=== PATIENT | male | born 1950 | race Caucasian/White ===

== ENCOUNTER 2022-02-03 12:15 | Outpatient (RCR) | payer MEDICARE, BC, SELFPAY | END 2022-09-02 23:59 | disposition home or self-care (01) | PROVIDERS: PCP Internal Medicine; Visit Provider Internal Medicine | DX: I89.0 Lymphedema, not elsewhere classified (principal); Z51.89 Encounter for other specified aftercare | CPT/HCPCS: 97140; 97165; 97535 ==

== ENCOUNTER 2022-09-17 07:15 | Outpatient (CLI) | payer MEDICARE, BC, SELFPAY | END 2022-09-17 07:16 | disposition home or self-care (01) | LOC: AMB 09-21 10:50 | PROVIDERS: Visit Provider Family Medicine | DX: R06.09 Other forms of dyspnea (principal); R61 Generalized hyperhidrosis | CPT/HCPCS: A0425; A0429 ==

== ENCOUNTER 2022-09-17 07:48 | Emergency (ER) | payer MEDICARE, BC, SELFPAY ==
[2022-09-17] VITALS (27 sets, daily range): BP systolic 93–130; BP diastolic 46–92; PULSE 63–86; RESP 18; TEMP 36.4; O2SAT 92–100; BMI 40.7
--- NOTE | 2022-09-17 08:08 | ED_ITS ---
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 He got up around 530 this morning, had sense of fecal urgency with diarrhea, did not quite make it to the toilet in time. He states this will occasionally happen to him. Was not suspecting that he was coming down with any illness. When he was cleaning up in the bathroom, started to feel short of breath. The shortness of breath continued to progress. He does have underlying mild persistent asthma since having COVID about 2 years ago. He has had some cough since then, is on Trelegy and then has rescue inhalers. He admits he has been using rescue inhalers more frequently. No fevers or chills, no nausea or vomiting, no abdominal pain or chest pain with this. Became concerned as he started having profuse sweating. He has had 2 episodes of cardiac events where he ended up with stent placement at [facility] which is no longer open. Both of those times he never had any chest pain, it was all sweating. He has had a history of pulmonary emboli, is on Xarelto and has not missed any doses of medications, did take them already today. He has a history of a TBI and has a psychiatrist managing medications for this. With the severe sweating, started to notice his hands and arms feeling numb. MD elicited complaint: shortness of breath Related Data Home oxygen amount: none Home Medications Medication Instructions Recorded Confirmed ezetimibe 10 mg tablet 10 mg PO 05/31/22 06/15/22 furosemide 20 mg tablet 20 mg PO 05/31/22 06/15/22 lisinopril 5 mg tablet 5 mg PO 05/31/22 06/15/22 metoprolol succinate 50 mg mg PO 05/31/22 06/15/22 tablet,extended release 24 hr nitroglycerin 0.4 mg sublingual 0.4 mg sublingual ONCE 05/31/22 09/17/22 tablet rosuvastatin 40 mg tablet 40 mg PO 05/31/22 06/15/22 tamsulosin 0.4 mg capsule mg PO 05/31/22 06/15/22 armodafinil 250 mg tablet 250 mg PO DAILY 09/17/22 09/17/22 bupropion HCl 100 mg tablet,12 hr 100 mg PO QAM 09/17/22 09/17/22 sustained-release divalproex 500 mg tablet,extended 1,000 mg PO QPM 09/17/22 09/17/22 release 24 hr rivaroxaban 20 mg tablet (Xarelto) 20 mg PO DAILY 09/17/22 09/17/22 venlafaxine 150 mg 150 mg PO DAILY 09/17/22 09/17/22 capsule,extended release 24 hr venlafaxine 75 mg capsule,extended 75 mg PO DAILY 09/17/22 09/17/22 release 24 hr Allergies Allergy/AdvReac Type Severity Reaction Status Date / Time oxycodone Allergy Rash Verified 09/17/22 08:05 Review of Systems Status of ROS: Reports: 6 or more systems reviewed and unremarkable except as noted in History and below [facility] Medical History (Updated 05/31/22 @ 08:58 by Susan Tamez ~ [facility], [employer]) Fracture of phalanx of toe of right foot ?S92.911A - Unspecified fracture of right toe(s), initial encounter for closed fracture (ICD-10) Concussion ?S06.0XAA - Concussion with loss of consciousness status unknown, initial encounter (ICD-10) Cardiac arrhythmia ?I49.9 - Cardiac arrhythmia, unspecified (ICD-10) Type 2 diabetes mellitus ?E11.9 - Type 2 diabetes mellitus without complications (ICD-10) CAD (coronary artery disease) ?I25.10 - Atherosclerotic heart disease of [place] coronary artery without angina pectoris (ICD-10) COPD (chronic obstructive pulmonary disease) ?J44.9 - Chronic obstructive pulmonary disease, unspecified (ICD-10) Asthma ?J45.909 - Unspecified asthma, uncomplicated (ICD-10) Surgical History (Updated 05/31/22 @ 08:58 by Susan Tamez ~ [facility], [employer]) History of coronary artery stent placement ?Z95.5 - Presence of coronary angioplasty implant and graft (ICD-10) Social History Smoking Status: Never smoker Do you use any of these nicotine containing products: None Second hand tobacco smoke exposure: No How often do you have a drink containing alcohol: never How often do you have six or more drinks on one occasion: Never AUDIT-C Alcohol total score: 0 Non-prescribed substance use: denies use service: No Exam Const: Vital Signs, click to edit/add: Vital Signs - 24 hr 09/17/22 07:57 09/17/22 08:20 Temperature 97.5 F L Pulse Rate [Left P ulse Oximeter] 86 Respiratory Rate 18 Blood Pressure [Le ft Upper Arm] 129/83 Pulse Oximetry 96 100 Oxygen Delivery Me thod Room Air Documenting provider has reviewed patient's vital signs: yes Common normals: no apparent distress, oriented x3, no limitations, healthy appearing and alert General appearance: cooperative, comfortable, well kempt and well developed Other: Patient is no longer sweating but is T-shirt is damp. HENMT: Common normals: normocephalic, head/scalp atraumatic, hearing grossly normal bilaterally and external ears normal Head and scalp: normocephalic and atraumatic Face and sinus: normal facial exam External ear: external ears normal Eye: Common normals: PERRL, EOMs intact bilaterally, conjunctivae normal and no scleral icterus Conjunctiva: conjunctiva(e) normal Pupil: PERRL Neck & C-Spine: Common normals: full ROM, no lymphadenopathy, supple, no meningeal signs, no JVD and thyroid normal Thyroid: thyroid normal Chest: Common normals: inspection of chest normal and palpation of chest normal Resp: Common normals: normal respiratory effort, no retractions, no use of accessory muscles and clear to auscultation bilaterally Effort & inspection: able to speak in complete sentences Auscultation: clear to auscultation bilaterally Cardio: Common normals: no JVD, regular rate, regular rhythm, S1 normal heart sound, S2 normal heart sound, no gallops, no clicks and no murmurs Rate: regular rate Rhythm: regular rhythm Heart sounds: S1 normal and S2 normal GI: Common normals: Normal to inspection, nondistended, normoactive bowel sounds present, soft to palpation, non-tender, no hepatosplenomegaly and no masses Palpation: soft and no hepatosplenomegaly Extremity: Common normals: no calf tenderness and no pedal edema Neuro: Common normals: oriented x3 Sensorium/orientation: alert Meningeal signs: no meningeal signs Psych: Appearance: well kempt Course Course Hospital Course: Patient is currently hemodynamically stable, oxygenating well on room air. Will obtain portable chest x-ray, monitor him on cardiac monitoring and pulse oximetry. Will get a full complement of labs and obtain a baseline point of care troponin. Symptoms potentially started around 530 but were progressive. After we have the initial point of care troponin, will discuss with patient and appropriate time frame for monitoring to get a 2nd troponin. Cardiac, respiratory issues including but not limited to infection will be considered. Does not seem like this is congestive heart failure but will have labs and chest x-ray done. He has not missed any doses of Xarelto making this extremely unlikely to be recurrent thromboembolic disease. Reevaluation(s) Time of Reevaluation #1: 09:48 Reevaluation #1: Reviewed with patient that the initial labs minus the pending proBNP are all reassuring or normal. The troponin is normal. He feels the worst of his symptoms probably were about the timing of getting in the ambulance. Thus, we will just do a 3 hour troponin as we normally would follow here. He is just tired, wants to sleep. He would like something to eat, given the stability of his labs and improvement of his symptoms, will allow him to eat at this time. We have an initial normal troponin. Time of Reevaluation #2: 10:42 Reevaluation #2: Patient reported to nursing that he was having some increased shortness of breath and a sense of chest pressure. EKG was repeated and shows normal sinus rhythm, PVC was occasionally seen, 72 beats per minute. Will obtain point of care troponin now and will continue to do the 3 hour troponin at about 11:30 a.m. Vital Signs Vital signs: Initial Vital Signs Temperature 97.5 F L 09/17/22 07:57 Temperature Source Temporal Artery Scan 09/17/22 07:57 Pulse Rate 86 09/17/22 07:57 Pulse Rhythm Regular 09/17/22 07:57 Pulse Strength 3+ Normal 09/17/22 07:57 Respiratory Rate 18 09/17/22 07:57 Blood Pressure 129/83 09/17/22 07:57 Blood Pressure Mean 98 09/17/22 07:57 Blood Pressure Position Sitting 09/17/22 07:57 Pulse Oximetry 96 09/17/22 07:57 Oxygen Delivery Method Room Air 09/17/22 07:57 Vital Signs Temperature 97.5 F L 09/17/22 07:57 Pulse Rate 86 09/17/22 07:57 Respiratory Rate 18 09/17/22 07:57 Blood Pressure 129/83 09/17/22 07:57 Pulse Oximetry 96 09/17/22 07:57 Oxygen Delivery Method Room Air 09/17/22 07:57 Temperature 97.5 F L 09/17/22 07:57 Pulse Rate 86 09/17/22 07:57 Respiratory Rate 18 09/17/22 07:57 Blood Pressure 129/83 09/17/22 07:57 Pulse Oximetry 100 09/17/22 08:20 Oxygen Delivery Method Room Air 09/17/22 07:57 MDM - SOB/Dyspnea Lab Data Attestation: I reviewed the patient's lab results. Labs: Lab Results 09/17/22 09/17/22 Range/Units 08:21 08:38 WBC 4.71 (4.50-11.00) K/uL RBC 4.70 (4.30-5.90) m/uL Hgb 14.5 (13.5-17.5) gm/dL Hct 43.6 (37.0-53.0) % MCV 93 (80-100) fL MCH 31 (26-34) pg MCHC 33 (32-36) gm/dL RDW Coeff of Cosmo 13.4 (11.5-15.5) % Plt Count 158 (140-440) K/uL Neut % (Auto) 59.5 (42.0-72.0) % Lymph % (Auto) 31.4 (20-44) % [place] % (Auto) 7.9 (0.0-11.0) % Eos % (Auto) 0.6 (0.0-7.0) % Baso % (Auto) 0.2 (0.0-3.0) % Neut # (Auto) 2.80 (1.7-7.0) K/uL Lymph # (Auto) 1.48 (0.90-2.90) K/uL [place] # (Auto) 0.40 (0.00-0.90) K/UL Eos # (Auto) 0.03 (0.00-0.50) K/uL Baso # (Auto) 0.01 (0.00-0.30) K/uL Abs Immat Gran (auto) 0.02 (0.00-0.30) K/uL Imm/Tot Granulo (auto) 0.4 % VBG pH 7.442 H (7.32-7.43) VBG pCO2 41 (40-50) mmHG VBG pO2 48.6 H (25-47) mmHG VBG HCO3 28 (21-28) mmol/L Sodium 136 (135-149) mmol/L Potassium 4.9 (3.6-5.1) mmol/L Chloride 104 (96-114) mmol/L Carbon Dioxide 25 (20-32) mmol/L BUN 21 (7-30) mg/dL Creatinine 1.2 (0.5-1.5) mg/dL Estimated Creat Clear 63.77 Estimated GFR 65 ml/min Glucose 100 (60-115) mg/dL Lactate 1.9 (0.5-1.9) mmol/L Calcium 8.4 (8.4-10.6) mg/dL Total Bilirubin 1.1 (0.1-1.5) mg/dL AST 46 H (12-35) U/L ALT 49 (4-50) U/L Alkaline Phosphatase 29 L (40-150) U/L C-Reactive Protein < 0.5 L (0.5-1.0) mg/dL NT-Pro-B Natriuret Pep 104 pg/mL Total Protein 6.8 (6.0-8.3) g/dL Albumin 3.8 (3.3-5.0) g/dL POC Troponin I 0.00 L (0.01-0.04) ng/ml Imaging Data Chest x-ray: Attestation: I have reviewed the pertinent imaging results. My impression: I see no acute pathology on my preliminary review. Radiologist's impression: Patient: ROGER MATHUR Facility:?[facility] Patient ID:?[id number] Site Patient ID:?[id number]. Site :?[id number] Study:?XRay Chest PORTABLE 1 VIEW-09/17/2022 8:39:45 AM Ordering Physician:?Lalo Montano Final Report: INDICATION: Dyspnea COMPARISON: August 03, 2020 TECHNIQUE: Single-view examination FINDINGS: TUBES AND LINES: None. HEART AND MEDIASTINUM: The heart size is normal. The mediastinal contour appears normal for patient age. LUNGS AND PLEURAL SPACES: The lungs appear normal.The pleural spaces are unremarkable. OSSEOUS STRUCTURES: Age-appropriate appearance. No acute focal finding. IMPRESSION: No evidence of active pulmonary disease. Dictated by Abraham Modi MD @ 09/17/2022 9:06:16 AM (Electronic Signature) ECG Data Attestation: I personally reviewed and interpreted this ECG as follows: (Sinus rhythm with a PVC seen. No acute ischemic change. QT corrected 408 milliseconds.) ECG interpretation date: 09/17/22 ECG interpretation time: 08:44 Discharge Plan Discharge Prescriptions: No Action rosuvastatin 40 mg tablet 40 mg PO metoprolol succinate 50 mg tablet extended release 24 hr PO Patient Comments: TAKE 1 TABLET BY MOUTH DAILY lisinopril 5 mg tablet 5 mg PO furosemide 20 mg tablet 20 mg PO tamsulosin 0.4 mg capsule PO nitroglycerin 0.4 mg tablet, sublingual 0.4 mg sublingual ONCE ezetimibe 10 mg tablet 10 mg PO venlafaxine 75 mg capsule,extended release 24hr 75 mg PO DAILY venlafaxine 150 mg capsule,extended release 24hr 150 mg PO DAILY bupropion HCl 100 mg tablet sustained-release 12 hr 100 mg PO QAM divalproex 500 mg tablet extended release 24 hr 1,000 mg PO QPM Xarelto 20 mg tablet 20 mg PO DAILY armodafinil 250 mg tablet 250 mg PO DAILY Follow Up/Referrals: Atif Lopez DO [Referring] -
--- NOTE | 2022-09-17 08:20 | CRLHL7_ITS ---
For Patients: As a result of the Century Cures Act, medical imaging exams and procedure reports are released immediately into your electronic medical record. You may view this report before your referring provider. If you have questions, please contact your health care provider. INDICATION: Dyspnea COMPARISON: August 03, 2020 TECHNIQUE: Single-view examination FINDINGS: TUBES AND LINES: None. HEART AND MEDIASTINUM: The heart size is normal. The mediastinal contour appears normal for patient age. LUNGS AND PLEURAL SPACES: The lungs appear normal.The pleural spaces are unremarkable. OSSEOUS STRUCTURES: Age-appropriate appearance. No acute focal finding. IMPRESSION: No evidence of active pulmonary disease. Dictated by Abraham Modi MD @ 09/17/2022 9:06:16 AM (Electronically Signed)
[2022-09-17 08:45] LABS: HCO3 VBG 28 mmol/L (21-28); Lactate* 1.9 mmol/L (0.5-1.9); PCO2 VBG 41 mmHG (40-50); PO2 VBG 48.6 mmHG (25-47); pH VBG 7.442 (7.32-7.43)
[2022-09-17 08:46] LABS: Basophils Absolute Auto 0.01 K/uL (0.00-0.30); Basophils Percent Auto 0.2 % (0.0-3.0); Eosinophils Absolute Auto 0.03 K/uL (0.00-0.50); Eosinophils Percent Auto 0.6 % (0.0-7.0); Hematocrit 43.6 % (37.0-53.0); Hemoglobin* 14.5 gm/dL (13.5-17.5); Immature Granulocytes Abs Auto 0.02 K/uL (0.00-0.30); Immature Granulocytes Pct Auto 0.4 %; Lymphocytes Absolute Auto 1.48 K/uL (0.90-2.90); Lymphocytes Percent Auto 31.4 % (20-44); Mean Corpuscular HGB Conc 33 gm/dL (32-36); Mean Corpuscular Hemoglobin 31 pg (26-34); Mean Corpuscular Volume 93 fL (80-100); Monocytes Percent Auto 7.9 % (0.0-11.0); Neutrophils Percent Auto 59.5 % (42.0-72.0); Platelet Count* 158 K/uL (140-440); RDW Coefficient of Variation % 13.4 % (11.5-15.5); White Blood Count* 4.71 K/uL (4.50-11.00)
[2022-09-17 08:48] LABS: Slide Review Reflex No
[2022-09-17 09:05] LABS: Albumin* 3.8 g/dL (3.3-5.0); Chloride* 104 mmol/L (96-114); Sodium* 136 mmol/L (135-149)
[2022-09-17 09:06] LABS: Potassium* 4.9 mmol/L (3.6-5.1)
[2022-09-17 09:08] LABS: Alkaline Phosphatase* 29 U/L (40-150); Aspartate Amino Transferase* 46 U/L (12-35); Bilirubin Total* 1.1 mg/dL (0.1-1.5); Blood Urea Nitrogen* 21 mg/dL (7-30); Carbon Dioxide* 25 mmol/L (20-32); Creatinine* 1.2 mg/dL (0.5-1.5); Est. Creatinine Clearance* 63.77; Estimated Glomerular Filt Rate 65 ml/min; Total Protein* 6.8 g/dL (6.0-8.3)
[2022-09-17 09:09] LABS: Alanine Aminotransferase* 49 U/L (4-50); Calcium* 8.4 mg/dL (8.4-10.6); Glucose* 100 mg/dL (60-115)
[2022-09-17 09:14] LABS: C Reactive Protein* < 0.5 mg/dL (0.5-1.0)
[2022-09-17 09:22] LABS: NT Pro B Type NatriureticPept* 104 pg/mL
--- NOTE | 2022-09-17 10:35 | ED.NURSE ---
Called into pt room by . Pt reporting chest pressure and sob. EKG completed and given to MD. Pt vitally stable but requesting 2L NC for comfort.
--- NOTE | 2022-09-17 13:04 | ED.SOB ---
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 Got up around 5:30 a.m. this morning, had a sense of fecal urgency with subsequent diarrhea, did not quite make it to the toilet in time. He states this will occasionally happen to him, will note some occasional diarrhea. He was not suspecting that he was coming down with any illness this morning. When he was cleaning up in the bathroom, started to feel short of breath. The shortness of breath continue to progress. He does have underlying mild persistent asthma since having COVID about 2 years ago. He has had some cough since then, is on Trelegy and then on rescue inhalers. He admits he has been using rescue inhalers more frequently. No fevers or chills, no nausea or vomiting, no abdominal pain or chest pain with this. Became concerned as he started having profuse sweating/diaphoresis with this sense of shortness of breath. He has had 2 episodes of cardiac events where he ended up with stent placement at [facility], no longer open. Both of these times he states he never had any chest pain, it was all just sweating symptoms. He has had a history of pulmonary emboli, is on Xarelto and has not missed any doses of this medicine, did already take it today. He has had a history of a TBI and has a psychiatrist managing medicines for him. With this severe sweating, started to notice his hands and arms feeling numb. MD elicited complaint: shortness of breath Related Data Home oxygen amount: none Home Medications Medication Instructions Recorded Confirmed ezetimibe 10 mg tablet 10 mg PO 05/31/22 06/15/22 furosemide 20 mg tablet 20 mg PO 05/31/22 06/15/22 lisinopril 5 mg tablet 5 mg PO 05/31/22 06/15/22 metoprolol succinate 50 mg mg PO 05/31/22 06/15/22 tablet,extended release 24 hr nitroglycerin 0.4 mg sublingual 0.4 mg sublingual ONCE 05/31/22 09/17/22 tablet rosuvastatin 40 mg tablet 40 mg PO 05/31/22 06/15/22 tamsulosin 0.4 mg capsule mg PO 05/31/22 06/15/22 armodafinil 250 mg tablet 250 mg PO DAILY 09/17/22 09/17/22 bupropion HCl 100 mg tablet,12 hr 100 mg PO QAM 09/17/22 09/17/22 sustained-release divalproex 500 mg tablet,extended 1,000 mg PO QPM 09/17/22 09/17/22 release 24 hr rivaroxaban 20 mg tablet (Xarelto) 20 mg PO DAILY 09/17/22 09/17/22 venlafaxine 150 mg 150 mg PO DAILY 09/17/22 09/17/22 capsule,extended release 24 hr venlafaxine 75 mg capsule,extended 75 mg PO DAILY 09/17/22 09/17/22 release 24 hr Allergies Allergy/AdvReac Type Severity Reaction Status Date / Time oxycodone Allergy Rash Verified 09/17/22 08:05 Review of Systems Status of ROS: Reports: 6 or more systems reviewed and unremarkable except as noted in History and below [facility] Medical History Fracture of phalanx of toe of right foot ?S92.911A - Unspecified fracture of right toe(s), initial encounter for closed fracture (ICD-10) Concussion ?S06.0XAA - Concussion with loss of consciousness status unknown, initial encounter (ICD-10) Cardiac arrhythmia ?I49.9 - Cardiac arrhythmia, unspecified (ICD-10) Type 2 diabetes mellitus ?E11.9 - Type 2 diabetes mellitus without complications (ICD-10) CAD (coronary artery disease) ?I25.10 - Atherosclerotic heart disease of [place] coronary artery without angina pectoris (ICD-10) COPD (chronic obstructive pulmonary disease) ?J44.9 - Chronic obstructive pulmonary disease, unspecified (ICD-10) Asthma ?J45.909 - Unspecified asthma, uncomplicated (ICD-10) Surgical History History of coronary artery stent placement ?Z95.5 - Presence of coronary angioplasty implant and graft (ICD-10) Social History Smoking Status: Never smoker Do you use any of these nicotine containing products: None Second hand tobacco smoke exposure: No How often do you have a drink containing alcohol: never How often do you have six or more drinks on one occasion: Never AUDIT-C Alcohol total score: 0 Non-prescribed substance use: denies use service: No Exam Const: Vital Signs, click to edit/add: Vital Signs - 24 hr 09/17/22 07:57 09/17/22 08:20 09/17/22 09:23 Temperature 97.5 F L Pulse Rate 80 Pulse Rate [Left P ulse Oximeter] 86 Respiratory Rate 18 Blood Pressure Blood Pressure [Le ft Upper Arm] 129/83 Pulse Oximetry 96 100 96 Oxygen Delivery Me thod Room Air Nasal Cannula Oxygen Flow Rate 2 09/17/22 09:30 09/17/22 09:32 09/17/22 09:45 Temperature Pulse Rate 84 82 81 Pulse Rate [Left P ulse Oximeter] Respiratory Rate Blood Pressure 116/85 Blood Pressure [Le ft Upper Arm] Pulse Oximetry 94 96 98 Oxygen Delivery Me thod Oxygen Flow Rate 09/17/22 10:00 09/17/22 10:03 09/17/22 10:15 Temperature Pulse Rate 72 80 72 Pulse Rate [Left P ulse Oximeter] Respiratory Rate Blood Pressure 116/69 Blood Pressure [Le ft Upper Arm] Pulse Oximetry 94 97 96 Oxygen Delivery Me thod Oxygen Flow Rate 09/17/22 10:32 09/17/22 10:33 09/17/22 10:42 Temperature Pulse Rate 63 Pulse Rate [Left P ulse Oximeter] Respiratory Rate Blood Pressure 122/59 L 105/92 H Blood Pressure [Le ft Upper Arm] Pulse Oximetry 95 Oxygen Delivery Me thod Oxygen Flow Rate 09/17/22 11:02 09/17/22 11:08 Temperature Pulse Rate Pulse Rate [Left P ulse Oximeter] Respiratory Rate Blood Pressure 124/80 Blood Pressure [Le ft Upper Arm] Pulse Oximetry 96 Oxygen Delivery Me thod Nasal Cannula Oxygen Flow Rate 2 Common normals: no apparent distress, oriented x3, no limitations, healthy appearing and alert General appearance: cooperative, comfortable, well kempt and well developed Other: Patient is no longer sweating but his T sure it is damp. HENMT: Common normals: normocephalic, head/scalp atraumatic, hearing grossly normal bilaterally and external nose normal Head and scalp: normocephalic and atraumatic Face and sinus: normal facial exam Nose: external nose normal Eye: Common normals: PERRL, EOMs intact bilaterally, conjunctivae normal and no scleral icterus Conjunctiva: conjunctiva(e) normal Pupil: PERRL Neck & C-Spine: Common normals: full ROM, no lymphadenopathy, supple, no meningeal signs and no JVD Chest: Common normals: inspection of chest normal and palpation of chest normal Resp: Common normals: normal respiratory effort, no retractions, no use of accessory muscles and clear to auscultation bilaterally Effort & inspection: able to speak in complete sentences Auscultation: clear to auscultation bilaterally Cardio: Common normals: no JVD, regular rate, regular rhythm, S1 normal heart sound, S2 normal heart sound, no gallops, no clicks and no murmurs Rate: regular rate Rhythm: regular rhythm Heart sounds: S1 normal and S2 normal GI: Common normals: Normal to inspection, nondistended, normoactive bowel sounds present, soft to palpation, non-tender, no hepatosplenomegaly and no masses Palpation: soft and no hepatosplenomegaly Extremity: Common normals: no calf tenderness and no pedal edema Neuro: Common normals: oriented x3 Sensorium/orientation: alert Meningeal signs: no meningeal signs Psych: Appearance: well kempt Course Course Hospital Course: Patient is currently hemodynamically stable, oxygenating well on room air. Will obtain portable chest x-ray, monitor him on cardiac monitoring and pulse oximetry. Will get a full complement of labs and obtain a baseline point of care troponin. Symptoms potentially started around 530 but were progressive. After we have the initial point of care troponin, will discuss with patient and appropriate time frame for monitoring to get a 2nd troponin. Cardiac, respiratory issues including but not limited to infection will be considered. Does not seem like this is congestive heart failure but will have labs and chest x-ray done. He has not missed any doses of Xarelto making this extremely unlikely to be recurrent thromboembolic disease. Reevaluation(s) Time of Reevaluation #1: 09:48 Reevaluation #1: Reviewed with the patient that the initial labs minus the pending proBNP are all reassuring are normal. The troponin is normal. He feels the worst of his symptoms probably were about the time minute of getting into the ambulance. Thus, we will just do a 3 hour troponin as we would normally follow here. He is just tired, wants to sleep. He would like something to eat, given the stability of his labs improvement of his symptoms, will allow him to eat at this time. We have an initial normal troponin. Note at 10:42 a.m., patient called nurse to state that he was having some increased shortness of breath and a sense of chest pressure. EKG was repeated and shows normal sinus rhythm, PVC was occasionally seen, 72 beats per minute. Will obtain point of care troponin now and will continue to plan to do the 3 hour troponin at about 11 30 this morning. Time of Reevaluation #2: 13:30 Reevaluation #2: Patient was resting with oxygen on and did wake him up. He does use CPAP at home. He wonders if he should get up and ambulate to see how he feels, do feel that would be appropriate. He does tell me that he has a stress test scheduled next Tuesday. He has noted that sometimes when he wakes up he will feel his heart race, we are not seeing any evidence of that here today. He thinks that he is maybe going to be doing a ZIO patch as well. If he isn't, did review with him that is something that could be considered. We reviewed that all of his cardiac enzymes have remained normal, there is no evidence of any identifiable pathology at this time. Vital Signs Vital signs: Initial Vital Signs Temperature 97.5 F L 09/17/22 07:57 Temperature Source Temporal Artery Scan 09/17/22 07:57 Pulse Rate 86 09/17/22 07:57 Pulse Rhythm Regular 09/17/22 07:57 Pulse Strength 3+ Normal 09/17/22 07:57 Respiratory Rate 18 09/17/22 07:57 Blood Pressure 129/83 09/17/22 07:57 Blood Pressure Mean 98 09/17/22 07:57 Blood Pressure Position Sitting 09/17/22 07:57 Pulse Oximetry 96 09/17/22 07:57 Oxygen Delivery Method Room Air 09/17/22 07:57 Vital Signs Temperature 97.5 F L 09/17/22 07:57 Pulse Rate 86 09/17/22 07:57 Respiratory Rate 18 09/17/22 07:57 Blood Pressure 129/83 09/17/22 07:57 Pulse Oximetry 96 09/17/22 07:57 Oxygen Delivery Method Room Air 09/17/22 07:57 Temperature 97.5 F L 09/17/22 07:57 Pulse Rate 63 09/17/22 10:33 Respiratory Rate 18 09/17/22 07:57 Blood Pressure 124/80 09/17/22 11:02 Pulse Oximetry 96 09/17/22 11:08 Oxygen Delivery Method Nasal Cannula 09/17/22 11:08 Oxygen Flow Rate 2 09/17/22 11:08 MDM - SOB/Dyspnea Lab Data Attestation: I reviewed the patient's lab results. Labs: Lab Results 09/17/22 09/17/22 09/17/22 Range/Units 08:21 08:38 10:40 WBC 4.71 (4.50-11.00) K/uL RBC 4.70 (4.30-5.90) m/uL Hgb 14.5 (13.5-17.5) gm/dL Hct 43.6 (37.0-53.0) % MCV 93 (80-100) fL MCH 31 (26-34) pg MCHC 33 (32-36) gm/dL RDW Coeff of Cosmo 13.4 (11.5-15.5) % Plt Count 158 (140-440) K/uL Neut % (Auto) 59.5 (42.0-72.0) % Lymph % (Auto) 31.4 (20-44) % [place] % (Auto) 7.9 (0.0-11.0) % Eos % (Auto) 0.6 (0.0-7.0) % Baso % (Auto) 0.2 (0.0-3.0) % Neut # (Auto) 2.80 (1.7-7.0) K/uL Lymph # (Auto) 1.48 (0.90-2.90) K/uL [place] # (Auto) 0.40 (0.00-0.90) K/UL Eos # (Auto) 0.03 (0.00-0.50) K/uL Baso # (Auto) 0.01 (0.00-0.30) K/uL Abs Immat Gran (auto) 0.02 (0.00-0.30) K/uL Imm/Tot Granulo (auto) 0.4 % VBG pH 7.442 H (7.32-7.43) VBG pCO2 41 (40-50) mmHG VBG pO2 48.6 H (25-47) mmHG VBG HCO3 28 (21-28) mmol/L Sodium 136 (135-149) mmol/L Potassium 4.9 (3.6-5.1) mmol/L Chloride 104 (96-114) mmol/L Carbon Dioxide 25 (20-32) mmol/L BUN 21 (7-30) mg/dL Creatinine 1.2 (0.5-1.5) mg/dL Estimated Creat Clear 63.77 Estimated GFR 65 ml/min Glucose 100 (60-115) mg/dL Lactate 1.9 (0.5-1.9) mmol/L Calcium 8.4 (8.4-10.6) mg/dL Total Bilirubin 1.1 (0.1-1.5) mg/dL AST 46 H (12-35) U/L ALT 49 (4-50) U/L Alkaline Phosphatase 29 L (40-150) U/L C-Reactive Protein < 0.5 L (0.5-1.0) mg/dL NT-Pro-B Natriuret Pep 104 pg/mL Total Protein 6.8 (6.0-8.3) g/dL Albumin 3.8 (3.3-5.0) g/dL POC Troponin I 0.00 L 0.00 L (0.01-0.04) ng/ml 09/17/22 Range/Units 11:45 WBC (4.50-11.00) K/uL RBC (4.30-5.90) m/uL Hgb (13.5-17.5) gm/dL Hct (37.0-53.0) % MCV (80-100) fL MCH (26-34) pg MCHC (32-36) gm/dL RDW Coeff of Cosmo (11.5-15.5) % Plt Count (140-440) K/uL Neut % (Auto) (42.0-72.0) % Lymph % (Auto) (20-44) % [place] % (Auto) (0.0-11.0) % Eos % (Auto) (0.0-7.0) % Baso % (Auto) (0.0-3.0) % Neut # (Auto) (1.7-7.0) K/uL Lymph # (Auto) (0.90-2.90) K/uL [place] # (Auto) (0.00-0.90) K/UL Eos # (Auto) (0.00-0.50) K/uL Baso # (Auto) (0.00-0.30) K/uL Abs Immat Gran (auto) (0.00-0.30) K/uL Imm/Tot Granulo (auto) % VBG pH (7.32-7.43) VBG pCO2 (40-50) mmHG VBG pO2 (25-47) mmHG VBG HCO3 (21-28) mmol/L Sodium (135-149) mmol/L Potassium (3.6-5.1) mmol/L Chloride (96-114) mmol/L Carbon Dioxide (20-32) mmol/L BUN (7-30) mg/dL Creatinine (0.5-1.5) mg/dL Estimated Creat Clear Estimated GFR ml/min Glucose (60-115) mg/dL Lactate (0.5-1.9) mmol/L Calcium (8.4-10.6) mg/dL Total Bilirubin (0.1-1.5) mg/dL AST (12-35) U/L ALT (4-50) U/L Alkaline Phosphatase (40-150) U/L C-Reactive Protein (0.5-1.0) mg/dL NT-Pro-B Natriuret Pep pg/mL Total Protein (6.0-8.3) g/dL Albumin (3.3-5.0) g/dL POC Troponin I 0.00 L (0.01-0.04) ng/ml ECG Data Attestation: I personally reviewed and interpreted this ECG as follows: (Sinus rhythm with a PVC seen. No acute ischemic change. QT corrected 408 milliseconds.) ECG interpretation date: 09/17/22 ECG interpretation time: 08:44 Prior ECG tracings: not available for review Interpretation: EKG at 11:52 a.m. showing sinus rhythm with PVC. Rate is 73 beats per minute. QT corrected 431 milliseconds. No ischemic change. No concerning change from prior. Critical Care Time Critical Care Time Critical Care Time: No Discharge Plan Discharge Clinical Impression: Shortness of breath, Diaphoresis Patient Disposition: Home, Self-Care Condition: Stable Instructions: Shortness of Breath (ED) Additional Instructions: No changes to your current medications. Right recommend no stressful or significantly exertional activity until you have completed your stress test that is reportedly scheduled for this coming Tuesday. If you are not scheduled to do so, talk to your primary care provider about possibly having a ZIO patch for cardiac monitoring. In the meantime, if you have recurrent or worsening symptoms, develops symptoms that might suggest new diagnosis such as respiratory infection, do recommend re-evaluation in the interim. Activity Level: No strenuous activity Discharge Diet: Heart Healthy (2 gm sodium, low fat) Prescriptions: No Action rosuvastatin 40 mg tablet 40 mg PO metoprolol succinate 50 mg tablet extended release 24 hr PO Patient Comments: TAKE 1 TABLET BY MOUTH DAILY lisinopril 5 mg tablet 5 mg PO furosemide 20 mg tablet 20 mg PO tamsulosin 0.4 mg capsule PO nitroglycerin 0.4 mg tablet, sublingual 0.4 mg sublingual ONCE ezetimibe 10 mg tablet 10 mg PO venlafaxine 75 mg capsule,extended release 24hr 75 mg PO DAILY venlafaxine 150 mg capsule,extended release 24hr 150 mg PO DAILY bupropion HCl 100 mg tablet sustained-release 12 hr 100 mg PO QAM divalproex 500 mg tablet extended release 24 hr 1,000 mg PO QPM Xarelto 20 mg tablet 20 mg PO DAILY armodafinil 250 mg tablet 250 mg PO DAILY Follow Up/Referrals: Atif Lopez DO [Referring] - Stand Alone Forms: [employer] Info Instructions
== END 2022-09-17 15:25 | disposition home or self-care (01) ==
PROVIDERS: Emergency Provider Family Medicine
DX: R06.02 Shortness of breath (principal); R61 Generalized hyperhidrosis
CPT/HCPCS: 36415; 71045; 80053; 82803; 83605; 83880; 84484; 85025; 86140; 93005; 94761; 99284; 99285

== ENCOUNTER 2023-02-27 13:47 | Emergency (ER) | payer MEDICARE, BC, SELFPAY ==
[2023-02-27 13:59] VITALS: BP 146/76; PULSE 94; RESP 22; TEMP 36.9; O2SAT 94; BMI 40.3
--- NOTE | 2023-02-27 14:14 | CRLHL7_ITS ---
For Patients: As a result of the Century Cures Act, medical imaging exams and procedure reports are released immediately into your electronic medical record. You may view this report before your referring provider. If you have questions, please contact your health care provider. INDICATION: [id number]. TECHNIQUE: Chest 2 views. COMPARISON: Radiographs from 09/17/2022. FINDINGS: Normal cardiomediastinal silhouette and pulmonary vasculature. Lungs are well inflated and clear. No focal consolidation, pleural effusion, or pneumothorax. No acute osseous abnormality. IMPRESSION: No acute cardiopulmonary abnormality identified. Dictated by Claudia Fung MD @ 02/27/2023 3:31:46 PM (Electronically Signed)
--- NOTE | 2023-02-27 14:25 | ED_ITS ---
HPI - General Adult General Chief complaint: Cough Stated complaint: Short of breath, coughing, 2 weeks Time Seen by Provider: 02/27/23 13:59 Source: patient Mode of arrival: ambulatory Limitations: no limitations History of Present Illness HPI narrative: 72-year-old male coming in today complaining of a cough that is been going on for 2 weeks. He feels like he is getting worse instead of better. He denies any fevers or chills. Cough is often productive. He does have a history of asthma and has been taking his nebulizer frequently, is not sure if it is helping. He did have a virtual visit about a week ago and was given doxycycline. Does also does not seem to be helping. He states that 2 times today his coughing spasms have been so bad that he faints momentarily. He has not fallen or hit his head. Appetite has been less than usual. He is not sleeping well at night. No diarrhea. No chest or abdominal pain. He does feel increased fatigue. Related Data Home Medications Medication Instructions Recorded Confirmed ezetimibe 10 mg tablet 10 mg PO 05/31/22 06/15/22 furosemide 20 mg tablet 20 mg PO 05/31/22 06/15/22 lisinopril 5 mg tablet 5 mg PO 05/31/22 06/15/22 metoprolol succinate 50 mg mg PO 05/31/22 06/15/22 tablet,extended release 24 hr nitroglycerin 0.4 mg sublingual 0.4 mg sublingual ONCE 05/31/22 09/17/22 tablet rosuvastatin 40 mg tablet 40 mg PO 05/31/22 06/15/22 tamsulosin 0.4 mg capsule mg PO 05/31/22 06/15/22 armodafinil 250 mg tablet 250 mg PO DAILY 09/17/22 02/27/23 bupropion HCl 100 mg tablet,12 hr 100 mg PO QAM 09/17/22 02/27/23 sustained-release divalproex 500 mg tablet,extended 1,000 mg PO QPM 09/17/22 02/27/23 release 24 hr rivaroxaban 20 mg tablet (Xarelto) 20 mg PO DAILY 09/17/22 02/27/23 venlafaxine 150 mg 150 mg PO DAILY 09/17/22 02/27/23 capsule,extended release 24 hr venlafaxine 75 mg capsule,extended 75 mg PO DAILY 09/17/22 02/27/23 release 24 hr albuterol sulfate 90 mcg/actuation 2 puff inhalation Q6H PRN 02/27/23 02/27/23 aerosol inhaler doxycycline hyclate 100 mg tablet 100 mg PO BID 02/27/23 02/27/23 Allergies Allergy/AdvReac Type Severity Reaction Status Date / Time oxycodone Allergy Rash Verified 02/27/23 14:09 Review of Systems Status of ROS: Reports: 10 or more systems reviewed and unremarkable except as noted in History and below [facility] Medical History Fracture of phalanx of toe of right foot ?S92.911A - Unspecified fracture of right toe(s), initial encounter for closed fracture (ICD-10) Concussion ?S06.0XAA - Concussion with loss of consciousness status unknown, initial encounter (ICD-10) Cardiac arrhythmia ?I49.9 - Cardiac arrhythmia, unspecified (ICD-10) Type 2 diabetes mellitus ?E11.9 - Type 2 diabetes mellitus without complications (ICD-10) CAD (coronary artery disease) ?I25.10 - Atherosclerotic heart disease of [place] coronary artery without angina pectoris (ICD-10) COPD (chronic obstructive pulmonary disease) ?J44.9 - Chronic obstructive pulmonary disease, unspecified (ICD-10) Asthma ?J45.909 - Unspecified asthma, uncomplicated (ICD-10) Surgical History History of coronary artery stent placement ?Z95.5 - Presence of coronary angioplasty implant and graft (ICD-10) Social History Smoking Status: Never smoker Do you use any of these nicotine containing products: None Second hand tobacco smoke exposure: No How often do you have a drink containing alcohol: never How often do you have six or more drinks on one occasion: Never AUDIT-C Alcohol total score: 0 Non-prescribed substance use: denies use service: No Exam Narrative: Exam Narrative: Overweight, well-developed patient in no acute distress. Alert and oriented. Answers questions appropriately. Mood and affect are appropriate. Thoughts are goal oriented and rational. No tangential or magical thinking noted. Patient speaks in full sentences without needing to catch his breath. Does cough throughout our examination. HEENT: Normocephalic atraumatic. Pupils are equally round reactive to light. Extraocular muscles are intact. Conjunctivae are moist without any icterus noted. Moist mucous membranes. Cardiovascular: Heart is regular rate and rhythm S1 and S2 are present without any murmurs. Lungs: Mild wheezing bilaterally, right greater than the left. Abdomen: Protuberant and soft with normal bowel sounds. Extremities: Bilateral lower extremities show trace edema. Skin: Well perfused without any obvious rashes. Const: Vital Signs, click to edit/add: Vital Signs - 24 hr 02/27/23 13:59 Temperature 98.4 F Pulse Rate [Pulse Oximeter] 94 Respiratory Rate 22 Blood Pressure [Ri ght Upper Arm] 146/76 H Pulse Oximetry 94 Oxygen Delivery Me thod Room Air Course Course ED Course: Patient received a DuoNeb here and oral prednisone, he felt significantly better after treatment and his wheezing resolved. CBC was unremarkable, chemistries were normal, glucose 127. Triple swab positive for RSV. Oxygen saturation remained at 93% with ambulation. Vital Signs Vital signs: Initial Vital Signs Temperature 98.4 F 02/27/23 13:59 Temperature Source Temporal Artery Scan 02/27/23 13:59 Pulse Rate 94 02/27/23 13:59 Pulse Rhythm Regular 02/27/23 13:59 Pulse Strength 3+ Normal 02/27/23 13:59 Respiratory Rate 22 02/27/23 13:59 Blood Pressure 146/76 H 02/27/23 13:59 Blood Pressure Mean 99 02/27/23 13:59 Blood Pressure Position Semi-Fowlers 02/27/23 13:59 Pulse Oximetry 94 02/27/23 13:59 Oxygen Delivery Method Room Air 02/27/23 13:59 Vital Signs Temperature 98.4 F 02/27/23 13:59 Pulse Rate 94 02/27/23 13:59 Respiratory Rate 22 02/27/23 13:59 Blood Pressure 146/76 H 02/27/23 13:59 Pulse Oximetry 94 02/27/23 13:59 Oxygen Delivery Method Room Air 02/27/23 13:59 Temperature 98.4 F 02/27/23 13:59 Pulse Rate 94 02/27/23 13:59 Respiratory Rate 22 02/27/23 13:59 Blood Pressure 146/76 H 02/27/23 13:59 Pulse Oximetry 94 02/27/23 13:59 Oxygen Delivery Method Room Air 02/27/23 13:59 Medications Administered Medications: Discontinued Medications Generic Name Dose Route Start Last Admin Trade Name Dorie PRN Reason Stop Dose Admin Albuterol/Ipratropium 1 neb 02/27/23 14:24 02/27/23 14:32 Iprat-Albut 0.5-2.5 Mg/3 Ml Neb IH 02/27/23 14:25 1 neb ONCE ONE Administration Prednisone 50 mg 02/27/23 14:24 02/27/23 14:32 Prednisone 10 Mg Tablet PO 02/27/23 14:25 50 mg ONCE ONE Administration Medical Decision Making MDM Narrative Medical decision making narrative: 72-year-old male with RSV and acute asthma exacerbation. Patient states that he has a prescription for prednisone at home he will start that. He has DuoNebs already at home and will start those more regularly. Return to ER if symptoms worsen. Lab Data Lab results reviewed: Yes I reviewed the patient's lab results Labs: Lab Results 02/27/23 02/27/23 Range/Units 14:12 14:28 WBC 7.13 (4.50-11.00) K/uL RBC 4.78 (4.30-5.90) m/uL Hgb 14.8 (13.5-17.5) gm/dL Hct 45.2 (37.0-53.0) % MCV 95 (80-100) fL MCH 31 (26-34) pg MCHC 33 (32-36) gm/dL RDW Coeff of Cosmo 13.5 (11.5-15.5) % Plt Count 188 (140-440) K/uL Neut % (Auto) 75.4 H (42.0-72.0) % Lymph % (Auto) 16.8 L (20-44) % [place] % (Auto) 6.2 (0.0-11.0) % Eos % (Auto) 0.7 (0.0-7.0) % Baso % (Auto) 0.1 (0.0-3.0) % Neut # (Auto) 5.40 (1.7-7.0) K/uL Lymph # (Auto) 1.20 (0.90-2.90) K/uL [place] # (Auto) 0.40 (0.00-0.90) K/UL Eos # (Auto) 0.05 (0.00-0.50) K/uL Baso # (Auto) 0.01 (0.00-0.30) K/uL Abs Immat Gran (auto) 0.06 (0.00-0.30) K/uL Imm/Tot Granulo (auto) 0.8 % Sodium 137 (135-149) mmol/L Potassium 4.6 (3.6-5.1) mmol/L Chloride 102 (96-114) mmol/L Carbon Dioxide 28 (20-32) mmol/L Anion Gap 7 (7-15) mEq/L BUN 19 (7-30) mg/dL Creatinine 1.2 (0.5-1.5) mg/dL Estimated Creat Clear 62.87 Estimated GFR 65 ml/min Glucose 127 H (60-115) mg/dL Calcium 9.3 (8.4-10.6) mg/dL SARS-CoV-2 (PCR) Negative SARS-CoV-2 (Negative) Influenza Type A (PCR) Negative PCR FLU A (Negative) Influenza Type B (PCR) Negative PCR FLU B (Negative) RSV (PCR) POSITIVE PCR RSV A (Negative) Imaging Data Chest x-ray: Attestation: I have reviewed the pertinent imaging results. Radiologist's impression: Chest 2 views. COMPARISON: Radiographs from 09/17/2022. FINDINGS: Normal cardiomediastinal silhouette and pulmonary vasculature. Lungs are well inflated and clear. No focal consolidation, pleural effusion, or pneumothorax. No acute osseous abnormality. IMPRESSION: No acute cardiopulmonary abnormality identified. Discharge Plan Discharge Clinical Impression: Asthma exacerbation, Respiratory syncytial virus (RSV) infection Patient Disposition: Home, Self-Care Condition: Stable Additional Instructions: Start prednisone (prescription that you already have) as prescribed. Use DuoNebs as needed. If symptoms worsen instead of slowly become better, return to the ER. Prescriptions: No Action rosuvastatin 40 mg tablet 40 mg PO metoprolol succinate 50 mg tablet extended release 24 hr PO Patient Comments: TAKE 1 TABLET BY MOUTH DAILY lisinopril 5 mg tablet 5 mg PO furosemide 20 mg tablet 20 mg PO tamsulosin 0.4 mg capsule PO nitroglycerin 0.4 mg tablet, sublingual 0.4 mg sublingual ONCE ezetimibe 10 mg tablet 10 mg PO venlafaxine 75 mg capsule,extended release 24hr 75 mg PO DAILY venlafaxine 150 mg capsule,extended release 24hr 150 mg PO DAILY bupropion HCl 100 mg tablet sustained-release 12 hr 100 mg PO QAM divalproex 500 mg tablet extended release 24 hr 1,000 mg PO QPM Xarelto 20 mg tablet 20 mg PO DAILY armodafinil 250 mg tablet 250 mg PO DAILY albuterol sulfate 90 mcg/actuation HFA aerosol inhaler 2 puff INHALATION Q6H PRN doxycycline hyclate 100 mg tablet 100 mg PO BID Follow Up/Referrals: Provider,Not a Local [Primary Care Provider] - Stand Alone Forms: [email or web address] Info Instructions
--- OUTSIDE RECORDS SUMMARY | 2023-02-27 14:26 | XMS_ITS | Referral Summary ---
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 performed with this method. Interpretation of those prior results can be made in the context of the updated reference intervals. Potassium 4.9 3.4 - 5.3 mmol/L 12/09/2022 9:04 AM CDT [facility] Carbon Dioxide (CO2) 27 22 - 29 mmol/L 12/09/2022 9:04 AM CDT [facility] Anion Gap 11 7 - 15 mmol/L 12/09/2022 9:04 AM CDT [facility] Urea Nitrogen 17.0 8.0 - 23.0 mg/dL 12/09/2022 9:04 AM CDT [facility] Creatinine 1.33(H) 0.67 - 1.17 mg/dL 12/09/2022 9:04 AM CDT [facility] GFR Estimate 58(L) >60 mL/min/1. 73m2 12/09/2022 9:04 AM CDT [facility] Calcium 9.7 8.8 - 10.2 mg/dL 12/09/2022 9:04 AM CDT [facility] Chloride 102 98 - 107 mmol/L 12/09/2022 9:04 AM CDT [facility] Glucose 100(H) 70 - 99 mg/dL 12/09/2022 9:04 AM CDT [facility] Alkaline Phosphatase 71 40 - 129 U/L 12/09/2022 9:04 AM CDT [facility] AST 26 0 - 45 U/L 12/09/2022 9:04 AM CDT [facility] Comment:Reference intervals for this test were updated on 07/26/2022 to more accurately reflect our healthy population. There may be differences in the flagging of prior results with similar values performed with this method. Interpretation of those prior results can be made in the context of the updated reference intervals. ALT 39 0 - 70 U/L 12/09/2022 9:04 AM CDT [facility] Comment:Reference intervals for this test were updated on 07/26/2022 to more accurately reflect our healthy population. There may be differences in the flagging of prior results with similar values performed with this method. Interpretation of those prior results can be made in the context of the updated reference intervals. Protein Total 7.0 6.4 - 8.3 g/dL 12/09/2022 9:04 AM CDT [facility] Albumin 4.1 3.5 - 5.2 g/dL 12/09/2022 9:04 AM CDT [facility] Bilirubin Total 0.6 <=1.2 mg/dL 12/09/2022 9:04 AM CDT [facility] Blood STRUCTURE OF RIGHT UPPER LIMB / Unknown Venipuncture / Unknown 12/08/2022 12:47 PM CDT 12/08/2022 12:47 PM CDT Onesimo Bruno MD LAB - BLOOD ORDERABL ES [facility] [place] [facility] [address] [facility] [address], [address] [place] [address], [place] [phone] * CBC with platelets (12/08/2022 12:47 PM CDT) WBC Count 4.9 4.0 - 11.0 10e3/uL 12/08/2022 12:50 PM CDT [facility] RBC Count 4.74 4.40 - 5.90 10e6/uL 12/08/2022 12:50 PM CDT [facility] Hemoglobin 14.6 13.3 - 17.7 g/dL 12/08/2022 12:50 PM CDT [facility] Hematocrit 44.8 40.0 - 53.0 % 12/08/2022 12:50 PM CDT [facility] MCV 95 78 - 100 fL 12/08/2022 12:50 PM CDT [facility] MCH 30.8 26.5 - 33.0 pg 12/08/2022 12:50 PM CDT [facility] MCHC 32.6 31.5 - 36.5 g/dL 12/08/2022 12:50 PM CDT [facility] RDW 13.6 10.0 - 15.0 % 12/08/2022 12:50 PM CDT [facility] Platelet Count 186 150 - 450 10e3/uL 12/08/2022 12:50 PM CDT [facility] Blood STRUCTURE OF RIGHT UPPER LIMB / Unknown Venipuncture / Unknown 12/08/2022 12:47 PM CDT 12/08/2022 12:47 PM CDT Onesimo Bruno MD LAB - BLOOD ORDERABL ES [facility] [address] [address], [facility] from Last 3 Months Additional Health Concerns Problem Noted Date Diagnosed Date HP GENERAL PROBLEM 11/13/2021 Care Teams Poultry Cleaner Relationship Specialty Start Date End Date Onesimo Bruno MD PCP - General 08/11/06 Bhavna Mac, GenesisD [address] [place] [address] Pharmacist Pharmacist 07/11/18 Isaac Bro, RN Lead Water Conservationist Primary Care - CC 09/01/18 Onesimo Bruno MD [address] [place] [address] Assigned PCP 07/30/20 Rafita Ayers MD [address] [place] [address] [phone] Assigned Pulmonology Provider 10/12/20 Flo Henry MD [address] [place] [address] Assigned Behavioral Health Provider 09/21/20 Jana Vick W Community Health Worker Primary Care - CC 06/08/21 Lorri Larsen MD [address] [place] [address] [phone] Otolaryngology 07/21/21 Lorri Larsen MD [address] [place] [address] [phone] Assigned Surgical Provider 10/10/21 Rafita Ayers MD [address] [place] [address] Critical Care 11/30/21 Kaelyn New AuD [address] [place] [address] Sheet Metal Fabricator Audiology 12/09/21 Marino Hayes MD [address] [place] [phone] Cardiovascular Disease 09/28/22 Marino Hayes MD [address] [place] [phone] Assigned Heart and Vascular Provider 10/09/22
--- OUTSIDE RECORDS SUMMARY | 2023-02-27 14:26 | XMS_ITS | Encounter Summary ---
Author Name Unknown Organization [facility] Address [address] [place] [address] Care Team Providers Care Real Estate Inspector Name Role Phone Onesimo Bruno MD Primary Care Provider [phone] Bhavna Mac PharmD Unavailable [phone] Isaac Bro RN Unavailable Unavailable Onesimo Bruno MD Unavailable [phone] Rafita Ayers MD Unavailable [phone] Flo Henry MD Unavailable [phone] Jana Vick [facility] Unavailable UnavailLorri Ulloa MD Unavailable [phone] Lorri Larsen MD Unavailable [phone] Rafita Ayers MD Unavailable [phone] Kaelyn New Unavailable [phone] Marino Hayes MD Unavailable [phone] Marino Hayes MD Unavailable [phone] Reason for Visit * Reason Onset Date Comments [facility] Pul Rehab Encounter Details Date Type Department Care Team (Late st Contact Info) Description 02/23/2023 Telephone [facility] [address] [place] [phone] Onesimo Bruno MD [address] [place] [address] [place] [address] [facility] Pul Rehab Social History Tobacco Use Types Packs/Day Years Used Date Smoking Tobacco: Never Smokeless Tobacco: Never Alcohol Use Standard Drinks/Week Comments No 0 [...] Orientation Garcia 09/17/2020 11 :45 PM CDT documented as of this encounter Miscellaneous Notes * Telephone Encounter - Chanda Calix - 02/25/2023 8:40 AM CST February 25, 2023 [facility] Pulmonary Rehab was picked up from outbox of Dr. Bruno. Paperwork has been reviewed and is complete. Per initial initial request, this was sent via fax to [phone]. Chanda Calix ICAL PROCESS EQUIPMENT OPERATOR * Telephone Encounter - Chanda Calix - 02/23/2023 11:43 AM CST February 23, 2023 [facility] via fax for Dr. Bruno to sign. Patient label was attached to paperwork and placed in provider's inbox to be signed. Chanda Calix ICAL PROCESS EQUIPMENT OPERATOR documented in this encounter Plan of Treatment Upcoming Encounters Date Type Department Care Team (Late st Contact Info) Description 04/04/2023 1:00 PM CHEMICAL PROCESS EQUIPMENT OPERATOR Virtual Visit [facility] and Bariatrics Care [address] [place] [phone] Keke Brooks, RD [address] [facility] [address] [place], [place] [address] documented as of this encounter Goals Goal Patient Goal Type Associated Problems Recent Progress Patient-Stated? Author I would like to get into more healthy eating program to assist me with weight loss. Care Plan HP GENERAL PROBLEM 30%( 3 12:31 PM CDT) No Isaac Bro, RN [...] I will look into working with a production trainer to assist me with resistance training. 5. I will report progress towards this goal at outreach telephone calls from the CCC team Discussed 12/28/22 documented as of this encounter Visit Diagnoses Not on filedocumented in this encounter Additional Health Concerns Problem Noted Date Diagnosed Date HP GENERAL PROBLEM 11/13/2021 Assessment Noted Time PHQ-9 Depression Total Score: 7 12/09/19 11:14 AM CDT documented as of this encounter Care Teams Real Estate Inspector Relationship Specialty Start Date End Date Onesimo Bruno MD PCP - General 08/11/06 Bhavna Mac, GenesisD [address] [place] [address] Pharmacist Pharmacist 07/11/18 Isaac Bro, RN Lead Ingot Stripper Primary Care - CC 09/01/18 Onesimo Bruno MD [address] [place] [address] Assigned PCP 07/30/20 Rafita Ayers MD [address] [place] [address] [phone] Assigned Pulmonology Provider 10/12/20 Flo Henry MD [address] [place] [address] Assigned Behavioral Health Provider 09/21/20 Jana Vick W Community Health Worker Primary Care - CC 06/08/21 Lorri Larsen MD [address] [place] [address] [phone] Otolaryngology 07/21/21 Lorri Larsen MD [address] [place] [address] [phone] Assigned Surgical Provider 10/10/21 Rafita Ayers MD [address] [place], [place] [phone] Critical Care 11/30/21 Kaelyn New AuD [address] [place] [address] Surgical Technician Audiology 12/09/21 Marino Hayes MD [address] [place] [phone] Cardiovascular Disease 09/28/22 Marino Hayes MD [address] [place] [id number] Assigned Heart and Vascular Provider 10/09/22 documented as of this encounter
--- OUTSIDE RECORDS SUMMARY | 2023-02-27 14:26 | XMS_ITS | Clinical Summary ---
Author Name Unknown Organization [facility] Address [address] [place] [address] Care Team Providers Care Wet End Helper Name Role Phone Onesimo Bruno MD Primary Care Provider [phone] Bhavna Mac PharmD Unavailable [phone] Isaac Bro RN Unavailable Unavailable Onesimo Bruno MD Unavailable [phone] Rafita Ayers MD Unavailable [phone] Flo Henry MD Unavailable [phone] Jana Vick CHW Unavailable Unavailabl e Lorri Larsen MD Unavailable [phone] Lorri Larsen MD Unavailable [phone] Rafita Ayers MD Unavailable [phone] Kaelyn New Unavailable [phone] Marino Hayes MD Unavailable + [phone] Marino Hayes MD Unavailable + [phone] Allergies Active Allergy Reactions Criticality Noted Date [...] (NITROSTAT) 0.4 MG SL tabletIndications :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 [NITROGLYCERIN (NITROSTAT) 0.4 [...] Apply topically as needed 0 2 Active Grahn-3 Fatty Acids (FISH OIL OMEGA-3 PO) Take [...] 50 MG 24 hr tabletIndications :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 TAKE 1 TABLET BY MOUTH DAILY 90 tablet 2 3 Active Fluticasone-Umecl idin-Vilant (TRELEGY ELLIPTA) 100-62.5-25 MCG/ACT oral inhalerIndication s:Moderate persistent asthma without complication Inhale 1 puff into the lungs daily 60 each 11 4 Active rosuvastatin (CRESTOR) 40 MG tabletIndications :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 If semaglutide is not covered, I would check with the patient's catering truck driver and see if she could justify an [...] consciousness, sequela (H24) Overview: Created by Conversion [facility] Annotation: Oct 31 2007 2:39PM - [...] Extremity Overview: Created by Conversion Atherosclerosis of tetlin co ronary artery of tetlin heart without angina pectoris Resolved Problems Problem [...] of 39.0 to 39.9 in adult 0 Encounters Date Type Department Care Team Description 02/23/[address] [phone] Onesimo Bruno MD [facility] Pulm Rehab 02/21/[address] [phone] Onesimo Bruno MD Refill Request 02/21/2023 MyC Medical Advice [address] [phone] Onesimo Bruno MD Exacerbation of asthma, unspecified asthma severity, unspecified whether persistent (Primary Dx) 02/17/[address] [phone] Onesimo Bruno MD Medication Refill 02/15/2023 11:20 AM ROLLER OPERATOR Virtual Visit [address] [phone] Onesimo Bruno MD Moderate persistent asthma without complication (Primary Dx); NAVAS (dyspnea on exertion); 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; Morbid obesity (H); Physical deconditioning; Bipolar affective disorder, currently depressed, moderate (H); Stage 3a chronic kidney disease (H); Bilateral pulmonary embolism (H); Traumatic brain injury with loss of consciousness, sequela (H24); 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) 01/26/[address] [phone] Onesimo Bruno MD [facility] Cardiopulmonary Rehab 01/20/[address] [phone] Onesimo Bruno MD Medication Refill 01/12/2023 2:20 PM ROLLER OPERATOR Virtual Visit [facility] [address] [place] [phone] Onesimo Bruno MD NAVAS (dyspnea on exertion) (Primary Dx); Morbid obesity (H); Physical deconditioning; Neuropathy of both feet; Bipolar affective disorder, currently depressed, moderate (H) 01/07/2023 Refill [facility] [address] [facility] [address] [place] [address] Nataliia Gomez MD Medication Refill 01/03/2023 1:00 PM ROLLER OPERATOR Virtual Visit [facility] Bariat[facility] [place] [address] [facility] [address] [place] [phone] [address] Stage 3 chronic kidney disease, unspecified whether stage 3a or 3b CKD (H) (Primary Dx); Essential hypertension, benign; Hypercholesterolemia; Class 3 severe obesity due to excess calories with serious comorbidity and body mass index (BMI) of 40.0 to 44.9 in adult (H); Nutritional counseling 12/16/2022 12:20 PM CDT Virtual Visit [facility] Neurology [facility] [address] [phone] Flo Henry MD Prediabetes; Neurocognitive disorder 12/13/2022 Telephone [facility] [address] [place] [phone] Rafita Ayers MD 12/08/2022 11:40 AM CDT Office Visit [address] [phone] Onesimo Bruno MD Encounter for Medicare annual wellness exam (Primary Dx); Bipolar affective disorder, currently depressed, moderate (H); 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); NAVAS (dyspnea on exertion); Morbid obesity (H); Moderate persistent asthma without complication; IDA (obstructive sleep apnea); Need for vaccination against respiratory syncytial virus; Neuropathy of both feet; Physical deconditioning; Screening for prostate cancer; Atherosclerosis of tetlin coronary artery of tetlin heart, unspecified whether angina present 12/08/2022 Travel 12/01/2022 1:00 PM CDT Virtual Visit [facility] [address] [address] CKD (chronic kidney disease) stage 3, GFR 30-59 ml/min (H) (Primary Dx); Essential hypertension, benign; Hypercholesterolemia; Class 3 severe obesity due to excess calories with serious comorbidity and body mass index (BMI) of 40.0 to 44.9 in adult (H); Nutritional counseling from Last 3 Months Immunizations Name Administration Dates Next Due COVID-19 12+ () (Pfizer) 12/08/2022 COVID-19 Bivalent 18+ (Moderna) 11/24/2021 [...] d (SHINGRIX) 02/19/2020,11/26/2019 Zoster vaccine, live 08/28/2013 Family History Medical History Relation Comments Heart Disease Father Cerebrovascular Disease Mother Heart Disease Mother Thyroid Cancer No family hx of Relation Status Comments Father Mother Social History Tobacco Use Types Packs/Day Years [...] st Contact Info) Description 04/04/2023 1:00 PM ROLLER OPERATOR Virtual Visit [facility] [address] [place] [address] Keke Brooks, RD [address] [facility] [address] [place] [address] Health Maintenance Due Date Last Done Comments CT COLONOGRAPHY 1952 FIT 1950 sDNA (Cologuard) 1950 RSV VACCINE ( & 60+) (1 - 1-dose 60+ series) 2012 COVID-19 Vaccine (2022- season) 2023 12/08/2022, 09/24/2022, 11/24/2021, Additional history exists PHQ-2 (once per calendar year) 2023 12/16/2022, 12/08/2022, 12/08/2022, Additional history exists ASTHMA ACTION PLAN 03/18/2023 03/18/2022, 03/03/2021 MITZI ASSESSMENT 03/18/2023 03/18/2022, 02/0 03/2022, 03/18/2022, Additional history exists MICROALBUMIN 03/18/2023 03/18/2022, 03/03/2021 ASTHMA CONTROL TEST 08/16/2023 02/15/2023, 12/08/2022, 09/16/2022, Additional history exists ANNUAL REVIEW OF HM ORDERS 12/09/202312/08, 11/30/2021, 11/04/2020 BMP 12/09/2023 12/08/2022, 08/0 04/2022, 07/21/2022, Additional history exists HEMOGLOBIN 12/09/2023 12/08/2022, 08/0 04/2022, 03/18/2022, Additional history exists LIPID 12/09/2023 12/08/2022, 06/0 08/2022, 03/18/2022, Additional history exists MEDICARE ANNUAL WELLNESS VISIT 12/09/2023 12/08/2022, 11/30/2021, 04/29/2020, Additional history exists PHQ-9 12/09/2023 12/08/2022, 03/0 03/2022, 03/18/2022, Additional history exists FALL RISK ASSESSMENT 01/13/2024 01/12/2023, 12/08/2022, 04/15/2022, Additional history exists FLEX SIG 09/11/2024 09/12/2019 COLONOSCOPY 09/14/2025 09/14/2020, 08/15, 09/12/2019, Additional history exists COLORECTAL CANCER SCREENING 09/14/2025 ADVANCE CARE PLANNING 12/09/2027 12/08/2022 , 04/29/2020, 05/03/2018 DTAP/TDAP/TD IMMUNIZATION (4 - Td or Tdap) 09/24/2032 09/24/2022, 08/19/2011, 11/19/2008, Additional history exists AORTIC ANEURYSM SCREENING (SYSTEM ASSIGNED) Completed 08/04/2018, 07/17/2018 ZOSTER IMMUNIZATION Completed 02/19/2020, 11/26/2019, 08/28/2013 HEPATITIS C SCREENING Completed 11/04/2020 Pneumococcal Vaccine: 65+ Years Completed 12/15/2020, 12/21/2018, 12/15/2018, Additional history exists INFLUENZA VACCINE Completed 12/08/2022, , 11/04/2020, Additional history exists URINALYSIS Completed 12/08/2022, 11/14, 07/26/2018, Additional history exists HPV IMMUNIZATION Aged Out No longer e ligible based on patient's age to complete this topic IPV IMMUNIZATION Aged Out No longer e ligible based on patient's age to complete this topic MENINGITIS IMMUNIZATION Aged Out No l onger eligible based on patient's age to complete this topic RSV MONOCLONAL ANTIBODY Aged Out No l onger eligible based on patient's age to complete this topic Goals Goal Patient Goal Type Associated Problems [...] I will look into working with a personal care worker to assist me with resistance training. 5. I will report progress towards this goal at outreach telephone calls from the [facility] team Discussed 12/28/22 Procedures Procedure Name Priority Date/Time Associated Diagnosis Comments UA MICROSCOPIC WITH REFLEX TO CULTURE Routine 12/08/2022 12:47 PM CDT NVAAS (dyspnea on exertion) TSH WITH FREE T4 [...] Routine 12/08/2022 12:47 PM CDT Atherosclerosis of tetlin coronary artery of tetlin heart, unspecified whether angina present HEMOGLOBIN A1C [...] PM CDT 12/08/2022 12:47 PM CDT Narrative [facility] - 12/08/2022 2:23 PM CDT Urine Culture not indicated Onesimo Bruno MD LAB - URINE ORDERABL ES [facility] [address] [place] [address], [facility] * (ABNORMAL) UA Macroscopic with reflex to Microscopic and Culture - Lab Collect (12/08/2022 12:47 PMCDT) Color Urine Yellow Colorless, Straw, Light Yellow, Yellow 12/08/2022 2:00 PM CDT [facility] Appearance Urine Clear Clear 12/09/19 2:00 PM CDT [facility] Glucose Urine Negative Negative mg/dL 12/08/2022 2:00 PM CDT [facility] Bilirubin Urine Negative Negative 2:00 PM CDT [facility] Ketones Urine Negative Negative mg/dL 12/08/2022 2:00 PM CDT [facility] Specific [place] Urine 1.025 1.005 - 1.030 12/08/2022 2:00 PM CDT [facility] Blood Urine Trace(A) Negative 12/08/2022 2:00 PM CDT [facility] pH Urine 5.5 5.0 - 8.0 12/08/2022 2:00 PM CDT [facility] Protein Albumin Urine Negative Negative mg/dL 12/08/2022 2:00 PM CDT [facility] Urobilinogen Urine 0.2 0.2, 1.0 E.U./dL 12/08/2022 2:00 PM CDT [facility] Nitrite Urine Negative Negative 12/08/2022 2:00 PM CDT [facility] Leukocyte Esterase Urine Negative Negative 12/08/2022 2:00 PM CDT [facility] Urine MID-STREAM URINE SPECIMEN / Unknown Non-blood Collection / Unknown 12/08/2022 12:47 PM CDT 12/08/2022 12:47 PM CDT Onesimo Bruno MD LAB - URINE ORDERABL ES [facility] [address] [place] [address], [facility] * TSH with free T4 reflex (12/08/2022 12:47 PM CDT) TSH 1.23 0.30 - 4.20 uIU/mL 12/09/2022 8:44 AM CDT [facility] Blood STRUCTURE OF RIGHT UPPER LIMB / Unknown Venipuncture / Unknown 12/08/2022 12:47 PM CDT 12/08/2022 12:47 PM CDT Onesimo Bruno MD LAB - BLOOD ORDERABL ES Performing Organization Address City/[facility]/ZIP Co de Phone Number [facility] [place] Core Lab [address] [facility], [address] [address], [facility] [phone] * PSA, screen (12/08/2022 12:47 PM CDT) Prostate Specific Antigen Screen 1.89 0.00 - 4.50 ng/mL 12/09/2022 8:44 AM CDT [facility] Blood STRUCTURE OF RIGHT UPPER LIMB / Unknown Venipuncture / Unknown 12/08/2022 12:47 PM CDT 12/08/2022 12:47 PM CDT Narrative [facility] - 12/09/2022 8:44 AM CDT This result is obtained using the Malachi Elecsys total PSA method on the julia [id number] immunoassay analyzer. Results obtained with different assay methods or kits cannot be used interchangeably. Onesimo Bruno MD LAB - BLOOD ORDERABL ES Performing Organization Address City/[facility]/ZIP Co de Phone Number [facility] [place] [facility] [address] [facility], [address] [address], [facility] [phone] * Lipid panel reflex to direct LDL [...] PM CDT 12/08/2022 12:47 PM CDT Narrative [facility] - 12/09/2022 9:04 AM CDT [...] LAB - BLOOD ORDERABL ES [facility] Core Lab [address] [place] [address], [address] [address], [facility] [phone] * (ABNORMAL) Hemoglobin A1c (12/08/2022 12:47 PM CDT) Hemoglobin A1C 6.0(H) 0.0 - 5.6 % 12/08/2022 1:02 PM CDT [facility] Comment: Normal <5.7% Prediabetes 5.7-6.4% ?? Diabetes 6.5% or higher Note: Adopted from ADA consensus guidelines. Blood STRUCTURE OF RIGHT UPPER LIMB / Unknown Venipuncture / Unknown 12/08/2022 12:47 PM CDT 12/08/2022 12:47 PM CDT Onesimo Bruno MD LAB - BLOOD ORDERABL ES [facility] [address] [place] [address], [facility] * (ABNORMAL) Comprehensive metabolic panel (BMP + Alb, Alk Phos, ALT, AST, Total. Bili, TP) (12/08/2022 12:47 PM CDT) [facility] Sodium 140 135 - 145 mmol/L 12/09/2022 [...] LAB - BLOOD ORDERABL ES [facility] [place] [facility] [address] [facility], [address] [phone] [phone] * CBC with platelets (12/08/2022 12:47 PM [...] LAB - BLOOD ORDERABL ES [facility] [address] [place] [address], [facility] from Last 3 Months Additional Health Concerns Problem Noted Date Diagnosed Date HP GENERAL PROBLEM 11/13/2021 Insurance Payer Benefit Plan / Group Subscriber ID Effective Dates Phone Address Type MEDICARE MEDICARE [id number] 2012-Prese ATTN CLAIMS [address] [place] [address] Medicare BCBS BCBS OF [place] [id number] 2017-P res [place] [address] [address] [place] [address] Indemnity Care Teams Wet End Helper Relationship Specialty Start Date End Date Onesimo Bruno MD PCP - General 08/11/06 Bhavna Mac, Genesis[employer] [address] [place] [address] Pharmacist Pharmacist 07/11/18 Isaac Bro, RN Lead Device Sales Consultant Primary Care - CC 09/01/18 Onesimo Bruno MD [address] [place] [address] Assigned PCP 07/30/20 Rafita Ayers MD [address] [place] [address] Assigned Pulmonology Provider 10/12/20 Flo Henry MD [facility] [address] [address] Assigned Behavioral Health Provider 09/21/20 Jana Vick [facility] Community Health Worker Primary Care - CC 06/08/21 Lorri Larsen MD [address] [place] [address] Otolaryngology 07/21/21 Lorri Larsen MD [address] [place] [address] Assigned Surgical Provider 10/10/21 Rafita Ayers MD [address] [place] [address] Critical Care 11/30/21 Kaelyn New AuD [address] [place] [address] Special Needs Bus Driver Audiology 12/09/21 Marino Hayes MD [address] [place] [address] [place] [address] Cardiovascular Disease 09/28/22 Marino Hayes MD [address] [place], [place] [address] Assigned Heart and Vascular Provider 10/09/22
--- OUTSIDE RECORDS SUMMARY | 2023-02-27 14:26 | XMS_ITS | Encounter Summary ---
Author Name Unknown Organization [facility] Address [address] [place] [address] Care Team Providers Care Dsp Engineer Name Role Phone Onesimo Bruno MD Primary Care Provider [phone] Bhavna Mac PharmD Unavailable [phone] Isaac Bro RN Unavailable Unavailable Onesimo Bruno MD Unavailable [phone] Rafita Ayers MD Unavailable [phone] Flo Henry MD Unavailable [phone] Jana Vick W Unavailable UnavailLorri Ulloa MD Unavailable [phone] Lorri Larsen MD Unavailable [phone] Rafita Ayers MD Unavailable [phone] Kaelyn New Unavailable [phone] Marino Hayes MD Unavailable + [phone] Marino Hayes MD Unavailable + [phone] Reason for Visit * Reason Onset Date Comments Refill Request 02/21/2023 Encounter Details Date Type Department Care Team (Late st Contact Info) Description 02/21/2023 Refill [facility] [address] [place] [address] Onesimo Bruno MD [address] [place] [address] Refill Request Social History Tobacco Use Types Packs/Day Years [...] PM CDT documented as of this encounter Plan of Treatment Upcoming Encounters Date Type Department Care Team (Late st Contact Info) Description 04/04/2023 1:00 PM LINER ASSEMBLER Virtual Visit [facility] Surgery Clinic and Bariatrics Care [address] [phone] Keke Brooks, RD [address] [facility] [address] [place] [address] documented as of this encounter Goals Goal [...] will look into working with a personal lines sales rep to assist me with resistance training. 5. I will report progress towards this goal at outreach telephone calls from the [facility] team Discussed 12/28/22 documented as of this encounter Visit Diagnoses Diagnosis Stage 3a chronic kidney disease (H) documented in this encounter Additional Health Concerns Problem Noted Date Diagnosed Date HP GENERAL PROBLEM 11/13/2021 Assessment Noted Time PHQ-9 Depression Total Score: 7 12/09/19 23 11:14 AM CDT documented as of this encounter Care Teams Dsp Engineer Relationship Specialty Start Date End Date Onesimo Bruno MD PCP - General 08/11/06 Bhavna Mac PharmD [address] [place] [address] Pharmacist Pharmacist 07/11/18 Isaac Bro, RN Lead Floor Coverings Installer Primary Care - CC 09/01/18 Onesimo rBuno MD [address] [place] [address] Assigned PCP 07/30/20 Rafita Ayers MD [address] [place] [address] Assigned Pulmonology Provider 10/12/20 Flo Henry MD [facility] [address] [address] Assigned Behavioral Health Provider 09/21/20 Jana Vick, W Community Health Worker Primary Care - CC 06/08/21 Lorri Larsen MD [address] [place] [address] Otolaryngology 07/21/21 Lorri Larsen MD [address] [place] [address] Assigned Surgical Provider 10/10/21 Rafita Ayers MD [address] [place] [address] Critical Care 11/30/21 Kaelyn New, [place] [address] [place] [address] Training Director Audiology 12/09/21 Marino Hayes MD [address] [place] [address] Cardiovascular Disease 09/28/22 Marino Hayes MD [address] [place] [address] Assigned Heart and Vascular Provider 10/09/22 documented as of this encounter
--- OUTSIDE RECORDS SUMMARY | 2023-02-27 14:27 | XMS_ITS | Encounter Summary ---
Author Name Unknown Organization [facility] Address [address] [place] [address] Care Team Providers Care Cigarette And Filter Chief Inspector Name Role Phone Onesimo Bruno MD Primary Care Provider [phone] Bhavna Mac PharmD Unavailable [phone] Isaac Bro RN Unavailable Unavailable Onesimo Bruno MD Unavailable [phone] Rafita Ayers MD Unavailable [phone] Flo Henry MD Unavailable [phone] Jana Vick CHW Unavailable UnavailLorri Ulloa MD Unavailable [phone] Lorri Larsen MD Unavailable [phone] Rafita Ayers MD Unavailable [phone] Kaelyn Nwe AuD Unavailable [phone] Marino Hayes MD Unavailable [phone] Marino Hayes MD Unavailable [phone] Encounter Details Date Type Department Care Team (Latest Contact Info) Description 12/08/2022 Travel Social History Tobacco Use Types Packs/Day Years Used Date Smoking Tobacco: Never Smokeless Tobacco: Never Alcohol Use Standard Drinks/Week Comments No 0 (1 standard drink = 0.6 oz pur e alcohol) PHQ-2 Answer Date Recorded PHQ-2 Score 3 12/08/2022 Food Insecurity Answer Date Recorded Within the past 12 months, d id you worry that your food would run out before you got money to buy more? No 12/08/2022 Within the past 12 months, d id the food you bought just not last and you didn? t have money to get more? No 12/08/2022 Housing Stability Answer Date Recorded Do you have housing? Yes 12/08/2022 Are you worried about losing your housing? No 12/08/2022 Financial Resource Strain Answer Date R ecorded Within the past 12 months, h ave you or your family members you live with been unable to get utilities (heat, electricity) when it was really needed? No 12/08/2022 Transportation Needs Answer Date Record ed Within the past 12 months, h as lack of transportation kept you from medical appointments, getting your medicines, non-medical meetings or appointments, work, or from getting things that you need? Yes 12/08/2022 Interpersonal Safety Answer Date Record ed Do [...] st Contact Info) Description 04/04/2023 1:00 PM LEASING ASSOCIATE Virtual Visit [facility] and Bariatrics Care [address] [place] [address] Keke Brooks, RD [address] [address] documented as of this encounter Goals Goal [...] look into working with a personal care aide to assist me with resistance training. 5. I will report progress towards this goal at outreach telephone calls from the [facility] team Discussed 12/28/22 documented as of this encounter Visit Diagnoses Not on filedocumented in this encounter Additional Health Concerns Problem Noted Date Diagnosed Date HP GENERAL PROBLEM 11/13/2021 Assessment Noted Time PHQ-9 Depression Total Score: 7 12/09/19 11:14 AM CDT documented as of this encounter Care Teams Cigarette And Filter Chief Inspector Relationship Specialty Start Date End Date Onesimo Bruno MD PCP - General 08/11/06 Bhavna Mac PharmD [address] [place] [address] Pharmacist Pharmacist 07/11/18 Isaac Bro, RN Lead Boot And Shoe Repairman Primary Care - CC 09/01/18 Onesimo Bruno MD [address] [place] [address] Assigned PCP 07/30/20 Rafita Ayers MD [address] [place] [address] Assigned Pulmonology Provider 10/12/20 Flo Henry MD [facility] [address] [address] Assigned Behavioral Health Provider 09/21/20 Jana Vick, W Community Health Worker Primary Care - CC 06/08/21 Lorri Larsen MD [address] [place] [address] Otolaryngology 07/21/21 Lorri Larsen MD [address] [place] [address] Assigned Surgical Provider 10/10/21 Rafita Ayers MD [address] [place] [address] Critical Care 11/30/21 Kaelyn New, [place] [address] [place] [address] Dynamic Balancer Audiology 12/09/21 Marino Hayes MD [address] [place] [address] Cardiovascular Disease 09/28/22 Marino Hayes MD [address] [place] [address] Assigned Heart and Vascular Provider 10/09/22 documented as of this encounter
--- OUTSIDE RECORDS SUMMARY | 2023-02-27 14:27 | XMS_ITS | Encounter Summary ---
Author Name Unknown Organization [facility] Address [address] [place] [address] Care Team Providers Care Electronics Test Engineer Name Role Phone Onesimo Bruno MD Primary Care Provider [phone] Bhavna Mac PharmD Unavailable [phone] Isaac Bro RN Unavailable Unavailable Onesimo Bruno MD Unavailable [phone] Rafita Ayers MD Unavailable [phone] Flo Henry MD Unavailable [phone] Jana Vick W Unavailable UnavailLorri Ulloa MD Unavailable [phone] Lorri Larsen MD Unavailable [phone] Rafita Ayers MD Unavailable [phone] Kaelyn New Unavailable [phone] Marino Hayes MD Unavailable + [phone] Marino Hayes MD Unavailable + [phone] Encounter Details Date Type Department Care Team (Late st Contact Info) Description 02/21/2023 [facility] [address] [place] [phone] Onesimo Bruno MD [address] [place], [place] [phone] Exacerbation of asthma, unspecified asthma severity, unspecified whether persistent (Primary Dx) Social History Tobacco Use Types Packs/Day Years [...] encounter Miscellaneous Notes * Telephone Encounter - Lita Cardona RN - 02/21/2023 2:12 PM CST Patient seen 02/15/23 virtually for these symptoms. Asthma: He presents for follow up of asthma. He has some cough, some wheezing, and some shortness of breath. He is using a relief medication daily. He typically misses taking his controller medication 1 time(s) per week. Patient is aware of the following triggers: cold air, dust mites, gastric reflux and upper respiratory infections. The patient has not had a visit to the Emergency Room, Urgent Care or Hospital due to asthma since the last clinic visit. MACHINE OPERATOR documented in this encounter Plan of Treatment Upcoming Encounters Date Type Department Care Team (Late st Contact Info) Description 04/04/2023 1:00 PM CAN MACHINE OPERATOR Virtual Visit [facility] and [facility]ariatrics Care [address] [place] [address] Keke Brooks, RD 420 [facility] [address] [place], [place] [address] documented as of this encounter Goals Goal Patient Goal Type Associated Problems Recent Progress Patient-Stated? Author I would like to get into more healthy eating program to assist me with weight loss. Care Plan HP GENERAL PROBLEM 30%( 12:31 PM CDT) Isaac Palomino, RN Note: Barriers: Patient reported increase in [...] I will look into working with a puppy trainer to assist me with resistance training. 5. I will report progress towards this goal at outreach telephone calls from the [facility] Discussed 12/28/22 documented as of this encounter Visit Diagnoses Diagnosis Exacerbation of asthma, unspecified asthma severity, unspecified whether persistent- Primary documented in this encounter Additional Health Concerns Problem Noted Date Diagnosed Date HP GENERAL PROBLEM 11/13/2021 Assessment Noted Time PHQ-9 Depression Total Score: 7 12/09/19 11:14 AM CDT documented as of this encounter Care Teams Electronics Test Engineer Relationship Specialty Start Date End Date Onesimo Bruno MD PCP - General 08/11/06 Bhavna Mac, GenesisD [address] [place] [address] Pharmacist Pharmacist 07/11/18 Isaac Bro, RN Lead Superintendent Meter Tests Primary Care - CC 09/01/18 Onesimo Bruno MD [address] [place] [address] Assigned PCP 07/30/20 Rafita Ayers MD [address] [place] [address] Assigned Pulmonology Provider 10/12/20 Flo Henry MD [address] [place] [address] Assigned Behavioral Health Provider 09/21/20 Jana Vick W Community Health Worker Primary Care - CC 06/08/21 Lorri Larsen MD [address] [place] [address] Otolaryngology 07/21/21 Lorri Larsen MD [address] [place] [address] 459375 Assigned Surgical Provider 10/10/21 Rafita Ayers MD [address] [place] [address] Critical Care 11/30/21 Kaelyn New AuD [address] [place] [address] Pack Out Operator Audiology 12/09/21 Marino Hayes MD [address] [place] [address] 877115 Cardiovascular Disease 09/28/22 Marino Hayes MD [address] [place] [address] 108275 Assigned Heart and Vascular Provider 10/09/22 documented as of this encounter
--- OUTSIDE RECORDS SUMMARY | 2023-02-27 14:27 | XMS_ITS | Encounter Summary ---
Author Name Unknown Organization [place] Address [address] [place] [address] Care Team Providers Care Soil Biology Teacher Name Role Phone Onesimo Bruno MD Primary Care Provider [phone] Bhanva Mac PharmD Unavailable [phone] Isaac Bro RN Unavailable Unavailable Onesimo Bruno MD Unavailable [phone] Rafita Ayers MD Unavailable [phone] Flo Henry MD Unavailable [phone] Jana Vick CHW Unavailable UnavailLorri Ulloa MD Unavailable [phone] Lorri Larsen MD Unavailable [phone] Rafita Ayers MD Unavailable [phone] Kaelyn New Unavailable [phone] Marino Hayes MD Unavailable + [phone] Marino Hayes MD Unavailable + [phone] Reason for Visit * Reason Comments Follow Up 1 month follow up - BP, asthma , shortness of breath (pt reports sob is worsening with allergies and reports using neb on a regular basis, pt reports that he is back in pulmonary rehab) and depression. 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 How would you like to obtain your AVS? MyChart If the video visit is dropped, the invitation should be resent by: Text to cell phone: [phone] Will anyone else be joining your video visit? No 1. Moderate persistent asthma without complication Continue his Trelegy. Continue his other inhaled medications. I do not see any indication for antibiotics or steroids at this time - Ggnaentfrug-Kxdimvxog-Cbwsuk (TRELEGY ELLIPTA) 100-62.5-25 MCG/ACT oral inhaler; Inhale 1 puff into the lungs daily Dispense: 60 each; Refill: 11 2. NAVAS (dyspnea on exertion) Doing better. He tells me his exercise tolerance is out where it was when he stopped cardiac rehab before. I am glad he is getting out of the hospital 3. 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 He tells me he is not having any bigeminy either. 4. Morbid obesity (H) He is lost little weight he tells me. 5. Physical deconditioning Continue rehab. 6. Bipolar affective disorder, currently depressed, moderate (H) Continue close follow-up with his psychiatrist. They tell him that he does not have bipolar probably. 7. Stage 3a chronic kidney disease (H) - lisinopril (ZESTRIL) 5 MG tablet; Take 1 tablet (5 mg) by mouth daily Dispense: 90 tablet; Refill: 3 8. Bilateral pulmonary embolism (H) Continue Xarelto lifelong. 9. Traumatic brain injury with loss of consciousness, sequela (H24) He is enjoying working with the care management group. He wants to continue same 10. Mild neurocognitive disorder due to traumatic brain injury As above. Subjective Roger is a 72 year old, presenting for the following health issues: Follow Up (1 month follow up - BP, asthma , shortness of breath (pt reports sob is worsening with allergies and reports using neb on a regular basis, pt reports that he is back in pulmonary rehab) and depression. ) and Recheck Medication (Refills - pended) 02/15/2023 11:02 AM Additional Questions Roomed by Tania History of Present Illness Asthma: He presents for follow up of [...] to asthma since the last clinic visit. Hypertension: He presents for follow up of hypertension. He does check blood pressure regularly outside of the clinic. Outpatient blood pressures have not been over 140/90. He follows a low salt diet. Vascular Disease: He presents for follow up of vascular disease. He is not taking daily aspirin.He consumes 0 sweetened beverage(s) daily. He exercises with enough effort to increase his heart rate 3or less days per week. He is taking medications regularly. Roger joins me on a video visit. He reports he has been having more issues with his asthma. Thought maybe he had COVID and did test negative. More cough which he is attributing to allergens. He is back at cardiac rehab and that is going well for him. His mood is better. Working with his psychiatrist. He denies chest pains or shortness of breath today. He has otherwise been doing okay. Cordell's niece came to visit for [employer] and cooked a lot of food. Review of Systems Objective Vitals - Patient Reported Pain Score: Mild Pain (2) Pain Loc: Low Back (leg (right)) Physical Exam Looks well. No cough during interview. Speaks in full sentences. Video-Visit Details Type of service: Video Visit Video Start Time: 1124 Video End Time:1150 Originating Location (pt. Location): Home Distant Location (provider location): On-site Platform used for Video Visit: Rusty ROLLER OPERATOR HOT MIX * Ani Flowers - 02/15/2023 11:20 AM CST Lm on to call back and schedule 2mo virtual video visit the week of 04/11- , since Dr. Bruno will not be here 04/14-04/30. ROLLER OPERATOR HOT MIX * Sanket Hillman - 02/15/2023 11:20 AM CST 02/17 lm to call back to schedule a video appt in 2 months for 40 min ROLLER OPERATOR HOT MIX * Sanket Hillman - 02/15/2023 11:20 AM CST 02/22 lm on [facility] phone to call and schedule Roger for a video 40 min video visit 2 month from 02/15 ROLLER OPERATOR HOT MIX documented in this encounter Plan of Treatment Upcoming Encounters Date Type Department Care Team (Late st Contact Info) Description 04/04/2023 1:[address] ROLLER OPERATOR HOT MIX Virtual Visit [facility] Clinic and Bariatrics Care [address] [address] Keke Brooks, RD 420 [facility] [address] [place], [place] [phone] documented as of this encounter Goals Goal [...] I will look into working with a aed trainer to assist me with resistance training. 5. I will report progress towards this goal at outreach telephone calls from the [facility] team Discussed 12/28/22 documented as of this encounter Visit Diagnoses Diagnosis Moderate persistent asthma without complication- Primary Unspecified asthma NAVAS (dyspnea on exertion) Other dyspnea and respiratory abnormality Atherosclerosis of pam[place] coronary artery of pamunkey heart without angina pectoris Morbid obesity (H) Morbid obesity Physical deconditioning Debility, unspecified Bipolar affective disorder, currently depressed, moderate (H) Bipolar I disorder, most recent episode (or current) depressed, moderate Stage 3a chronic kidney disease (H) Bilateral pulmonary embolism (H) Other pulmonary embolism and infarction Traumatic brain injury with loss of consciousness, 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) documented in this encounter Additional Health Concerns Problem Noted Date Diagnosed Date HP GENERAL PROBLEM 11/13/2021 Assessment Noted Time PHQ-9 Depression Total Score: 7 12/09/19 23 11:14 AM CDT documented as of this encounter Care Teams Soil Biology Teacher Relationship Specialty Start Date End Date Onesimo Bruno MD PCP - General 08/11/06 Bhavna Mac, GenesisD [address] [place] [address] Pharmacist Pharmacist 07/11/18 Isaac Bro, RN Lead Commercial Solar Sales Consultant Primary Care - CC 09/01/18 Onesimo Bruno MD [address] [place] [address] Assigned PCP 07/30/20 Rafita Ayers MD [address] [place] [address] Assigned Pulmonology Provider 10/12/20 Flo Henry MD [address] [address] Assigned Behavioral Health Provider 09/21/20 Jana Vick, [facility] Community Health Worker Primary Care - CC 06/08/21 Lorri Larsen MD [address] [place] [address] Otolaryngology 07/21/21 Lorri Larsen MD [address] [place] [address] Assigned Surgical Provider 10/10/21 Rafita Ayers MD [address] [place] [address] Critical Care 11/30/21 Kaelyn New, [place] [address] [place] [address] Farm Owner Operator Audiology 12/09/21 Marino Hayes MD [address] [place] [address] Cardiovascular Disease 09/28/22 Marino Hayes MD [address] [place] [address] Assigned Heart and Vascular Provider 10/09/22 documented as of this encounter
--- OUTSIDE RECORDS SUMMARY | 2023-02-27 14:27 | XMS_ITS | Encounter Summary ---
Author Name Unknown Organization [place] Address [address] [place] [address] Care Team Providers Care Vending Route Driver Name Role Phone Onesimo Bruno MD Primary Care Provider [phone] Bhavna Mac PharmD Unavailable [phone] Isaac Bro RN Unavailable Unavailable Onesimo Bruno MD Unavailable [phone] Rafita Ayers MD Unavailable [phone] Flo Henry MD Unavailable [phone] Jana Vick CHW Unavailable UnavailLorri Ulloa MD Unavailable [phone] Lorri Larsen MD Unavailable [phone] Rafita Ayers MD Unavailable [phone] Kaelyn New Unavailable [phone] Marino Hayes MD Unavailable + [phone] Marino Hayes MD Unavailable + [phone] Encounter Details Date Type Department Care Team (Late st Contact Info) Description 12/01/2022 1:00 PM CDT Virtual Visit [facility] Surgery Clinic and Bariatrics Care [address] [place] [address] Keke Brooks, RD 420 [facility] 84 [place], [place] [address] CKD (chronic kidney disease) stage 3, GFR 30-59 ml/min (H) (Primary Dx); Essential hypertension, benign; Hypercholesterolemia ; Class 3 severe obesity due to excess calories with serious comorbidity and body mass index (BMI) of 40.0 to 44.9 in adult (H); Nutritional counseling Social History Tobacco Use Types Packs/Day Years Used Date Smoking Tobacco: Never Smokeless Tobacco: Never Alcohol Use Standard Drinks/Week Comments No 0 (1 standard drink = 0.6 oz pur e alcohol) PHQ-2 Answer Date Recorded PHQ-2 Score 2 10/21/2022 Sex and Gender Information Value Date Recorded Sex Assigned at Male 05/09/2020 12:49 AM CDT Gender Identity Male 05/09/2020 12:49 AM CDT Sexual Orientation Garcia 09/17/2020 11 :45 PM CDT documented as of this encounter Progress Notes * Keke Brooks, RD - 12/01/2022 1:00 PM CDT Images from the original note were not included. Roger Luong is a 71 year old who is being evaluated via a billable video visit. How would you like to obtain your AVS? MyChart If the video visit is dropped, the invitation should be resent by: Send to e- mail at: [email or web address] Will anyone else be joining your video visit? No Medical Weight Loss Follow-Up Diet Evaluation Assessment: Roger is presenting today for a follow up weight management nutrition consultation. This patient has had an initial appointment and was referred by Dr. Day for MNT as treatment for Obesity which is impacting his CKD, CAD. Weight loss medication: None . Pt's weight is 297 lbs Weight change: 3 lbs down in the past month No data to display BMI: There is no height or weight on file to calculate BMI. Crawford body weight: 77.6 kg (171 lb 1.2 oz) Adjusted ideal body weight: 101 kg (222 lb 10.3 oz) Estimated RMR (Liver[place]-St Jeor equation): 2156 kcals x 1.3 (light active) = 2803 kcals (for weight maintenance) Recommended Protein Intake: 60-80 grams of protein/day Patient Active Problem List: Patient Active Problem List Diagnosis Skin Lesion Benign Pigmented Nevus Hemangioma Of The Skin Actinic keratosis Sebaceous Hyperplasia Traumatic brain injury with loss of consciousness, sequela (H24) Hypercholesterolemia IDA (obstructive sleep apnea) Benign Essential Hypertension Coronary Artery Disease Allergic rhinitis Wheezing (Symptom) Thrombophlebitis Of Superficial Vessels Of The Lower Extremity Edema Bilateral pulmonary embolism (H) Pulmonary emboli (H) Atherosclerosis of [place] coronary artery of [place] heart without angina pectoris Avitaminosis D Metabolic syndrome Prediabetes CKD (chronic kidney disease) stage 3, GFR 30-59 ml/min (H) Urinary retention Morbid obesity (H) History of traumatic head injury Impairment of balance 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 Patient reports that he has been doing more cooking from home to help reduce eatingout frequency, noting that they have been using Home Corner Cutter Machine Operator, 4 meals/week. Patient reports that he istrying to focusing on protein first at meals, consuming food such as cheese, meat, beans, etc... Patient reports that he struggles at times with breakfast and lunches at times, noting that that is probably the next thing to work on. Exercise: Gym Membership-looking into another meeting with a Clinical Director again, likes walking at [employer], thought about doing it more frequently Nutrition Diagnosis: Obesity (NC 3.3) related to overeating and poor lifestyle habits as evidenced by patient's subjective statements and BMI 40.4 kg/m2. Intervention: Food and/or nutrient delivery: balanced meals, adequate protein Nutrition education: none Nutrition counseling: provided support and encouragement Monitoring/Evaluation: Goals: Increase walking at [employer] to at least a couple times/week. Work on consistency of getting in breakfast regularly and focusing on protein first. Patient to follow up in 1 month(s) with [facility] Video-Visit Details Type of service: Video Visit Video Start Time (time video started): 12:44 pm Video End Time (time video stopped): 1:27 pm Originating Location (pt. Location): Home Distant Location (provider location): Off-site Mode of Communication: Video Conference via [facility] Physician has received verbal consent for a Video Visit from the patient? Yes Keke Brooks RD documented in this encounter Plan of Treatment Upcoming Encounters Date Type Department Care Team (Late st Contact Info) Description 04/04/2023 1:00 PM MANAGER STARS Virtual Visit [facility] Clinic and Bariatrics Care [address] [place] [phone] [address] documented as of this encounter Goals Goal Patient Goal Type Associated Problems Recent Progress Patient-Stated? Author I would like to get into more healthy eating program to assist me with weight loss. Care Plan HP GENERAL PROBLEM 30%( 12:31 PM CDT) No Isaac Bro RN Note: Barriers: Patient reported increase in [...] I will look into working with a personalization specialist to assist me with resistance training. 5. I will report progress towards this goal at outreach telephone calls from the [facility] team Discussed 12/28/22 documented as of this encounter Visit Diagnoses Diagnosis CKD (chronic kidney disease) stage 3, GFR 30-59 ml/min (H)- Primary Chronic kidney disease, Stage III (moderate) Essential hypertension, benign Hypercholesterolemia Pure hypercholesterolemia Class 3 severe obesity due to excess calories with serious comorbidity and body mass index (BMI) of 40.0 to 44.9 in adult (H) Nutritional counseling documented in this encounter Additional Health Concerns Problem Noted Date Diagnosed Date HP GENERAL PROBLEM 11/13/2021 Assessment Noted Time PHQ-9 Depression Total Score: 8 04/16/19 9:42 AM MANAGER STARS documented as of this encounter Care Teams Vending Route Driver Relationship Specialty Start Date End Date Onesimo Bruno MD PCP - General 08/11/06 Bhavna Mac, GenesisD [address] [place] [address] Pharmacist Pharmacist 07/11/18 Isaac Bro, RN Lead Heating Element Winder Primary Care - CC 09/01/18 Onesimo Bruno MD [address] [place] [address] Assigned PCP 07/30/20 Rafita Ayers MD [address] [place] [address] Assigned Pulmonology Provider 10/12/20 Flo Henry MD [facility] [address] Assigned Behavioral Health Provider 09/21/20 Jana Vick, W Community Health Worker Primary Care - CC 06/08/21 Lorri Larsen MD [address] [place] [address] Otolaryngology 07/21/21 Lorri Larsen MD [address] [place] [address] Assigned Surgical Provider 10/10/21 Rafita Ayers MD [address] [place] [address] Critical Care 11/30/21 Kaelyn New AuD [facility] [place] [address] Paper Cleaner Audiology 12/09/21 Marino Hayes MD [address] [place] [address] Cardiovascular Disease 09/28/22 Marino Hayes MD [address] [place] [address] Assigned Heart and Vascular Provider 10/09/22 documented as of this encounter
--- OUTSIDE RECORDS SUMMARY | 2023-02-27 14:27 | XMS_ITS | Encounter Summary ---
Author Name Unknown Organization Mobile Address [address] [place] [address] Care Team Providers Care Drone Software Development Engineer Name Role Phone Onesimo Bruno MD Primary Care Provider [phone] Bhavna Mac PharmD Unavailable [phone] Isaac Bro RN Unavailable Unavailable Onesimo Bruno MD Unavailable [phone] Rafita Ayers MD Unavailable [phone] Flo Henry MD Unavailable [phone] Jana Vick W Unavailable UnavailLorri Ulloa MD Unavailable [phone] Lorri Larsen MD Unavailable [phone] Rafita Ayers MD Unavailable [phone] Kaelyn New Unavailable [phone] Marino Hayes MD Unavailable + [phone] Marino Hayes MD Unavailable + [phone] Encounter Details Date Type Department Care Team (Late st Contact Info) Description 01/03/2023 1:00 PM MAGISTERIAL DISTRICT JUDGE Virtual Visit [facility] [address] [place] [phone] Keke Brooks, RD 420 [facility] [place] [address] [place], [place] [address] Stage 3 chronic kidney disease, unspecified whether stage 3a or 3b CKD (H) (Primary Dx); Essential hypertension, benign; Hypercholesterolemia [...] Progress Notes * Keke Brooks, RD - 01/03/2023 1:00 PM CST Images from the original note were not included. Roger Luong is a 72 year old who is being evaluated via a billable video visit. How would you like to obtain your AVS? MyChart If the video visit is dropped, the invitation should be resent by: Send to e- mail at: [email or web address] Will anyone else be joining your video visit? No Medical Weight Loss Follow-Up Diet Evaluation Assessment: Roger is presenting today for a follow up weight management nutrition consultation. This patient has had an initial appointment and was referred by Dr. Day for MNT as treatment for Obesity which is impacting his CKD, CAD. Weight loss medication: None . Pt's weight is 301.8 lbs (up 4 lbs over the past month) No data to display BMI: There is no height or weight on file to calculate BMI. 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 Patient reports that he feels this is has been a reason for the recent weight gain. Patient reports that he has been trying to get up and having a highprotein breakfast daily. Patient reports that they did a gym orientation along with MD appt in the month of November, noting that the plan is to start Cardiac/Pulmonary Rehab-aiming for 3 days/week x 12 weeks. Has had some medication changes as well as seeing a therapist to help with overall improved mood. Goal then in between rehab sessions will be to walk for 30 minutes/day either indoors at [employer] or the school or outside. Nutrition Diagnosis: Obesity (NC 3.3) related to overeating and poor lifestyle habits as evidenced by patient's subjective statements and BMI 41 kg/m2. Intervention: Food and/or nutrient delivery: balanced meals, adequate protein Nutrition education: none Nutrition counseling: provided support and encouragement Monitoring/Evaluation: Goals: Weight Loss goal of 10 lbs within the next 3 months. Patient to follow up in 3 month(s) with [facility] Video-Visit Details Type of service: Video Visit Video Start Time (time video started): 12:56 pm Video End Time (time video stopped): 1:29 pm Originating Location (pt. Location): Home Distant Location (provider location): Off-site Mode of Communication: Video Conference via [facility] Physician has received verbal consent for a Video Visit from the patient? Yes Keke Brooks RD STERIAL DISTRICT JUDGE documented in this encounter Plan of Treatment Upcoming Encounters Date Type Department Care Team (Late st Contact Info) Description 04/04/2023 1:00 PM MAGISTERIAL DISTRICT JUDGE Virtual Visit [facility] [address] [phone] 420 [facility] [place] [address] [place], [place] [address] documented as of this encounter Goals Goal [...] will look into working with a personal computer network analyst to assist me with resistance training. 5. I will report progress towards this goal at outreach telephone calls from the [facility] team Discussed 12/28/22 documented as of this encounter Visit Diagnoses Diagnosis Stage 3 chronic kidney disease, unspecified whether stage 3a or 3b CKD (H)- Primary Essential hypertension, benign Hypercholesterolemia Pure hypercholesterolemia Class [...] documented as of this encounter Care Teams Drone Software Development Engineer Relationship Specialty Start Date End Date Onesimo Bruno MD PCP - General 08/11/06 Bhavna Mac PharmD [address] [place] [address] Pharmacist Pharmacist 07/11/18 Isaac Bro, RN Lead Waterworks Operator Primary Care - CC 09/01/18 Onesimo Bruno MD [address] [place] [address] Assigned PCP 07/30/20 Rafita Ayers MD [address] [place] [address] Assigned Pulmonology Provider 10/12/20 Flo Henry MD [address] [address] Assigned Behavioral Health Provider 09/21/20 Jana Vick, W Community Health Worker Primary Care - CC 06/08/21 Lorri Larsen MD [address] [place] [address] Otolaryngology 07/21/21 Lorri Larsen MD [address] [place] [address] Assigned Surgical Provider 10/10/21 Rafita Ayers MD [address] [place] [address] Critical Care 11/30/21 Kaelyn New, [place] [address] [place] [address] Roof Technician Audiology 12/09/21 Marino Hayes MD [address] [place] [address] Cardiovascular Disease 09/28/22 Marino Hayes MD [address] [place] [address] Assigned Heart and Vascular Provider 10/09/22 documented as of this encounter
--- OUTSIDE RECORDS SUMMARY | 2023-02-27 14:27 | XMS_ITS | Encounter Summary ---
Author Name Unknown Organization [place] Address [address] [place] [address] Care Team Providers Care Professor Of Geology Name Role Phone Onesimo Bruno MD Primary Care Provider [phone] Bhavna Mac PharmD Unavailable [phone] Isaac Bro RN Unavailable Unavailable Onesimo Bruno MD Unavailable [phone] Rafita Ayers MD Unavailable [phone] Flo Henry MD Unavailable [phone] Jana Vick W Unavailable UnavailLorri Ulloa MD Unavailable [phone] Lorri Larsen MD Unavailable [phone] Rafita Ayers MD Unavailable [phone] Kaelyn New Unavailable [phone] Marino Hayes MD Unavailable + [phone] Marino Hayes MD Unavailable + [phone] Reason for Visit * Reason Comments Medication Refill Encounter Details Date Type Department Care Team (Late st Contact Info) Description 01/07/2023 Refill [facility] [address] [facility] [address] [place] [phone] Nataliia Gomez MD [address] [facility] [address] [place] [address] Medication Refill Social History Tobacco Use Types Packs/Day Years [...] st Contact Info) Description 04/04/2023 1:00 PM CHAIRMAN CEO Virtual Visit [facility] [address] [phone] Keke Brooks, RD 420 [facility] 84 [place] [address] documented as of this encounter Goals Goal [...] I will look into working with a sharepoint trainer to assist me with resistance training. 5. I will report progress towards this goal at outreach telephone calls from the [facility] team Discussed 12/28/22 documented as of this encounter Visit Diagnoses Diagnosis Elevated brain natriuretic peptide (BNP) level Other nonspecific findings on examination of blood documented in this encounter Additional Health Concerns Problem Noted Date Diagnosed Date HP GENERAL PROBLEM 11/13/2021 Assessment Noted Time PHQ-9 Depression Total Score: 7 12/09/19 23 11:14 AM CDT documented as of this encounter Care Teams Professor Of Geology Relationship Specialty Start Date End Date Onesimo Bruno MD PCP - General 08/11/06 Bhavna Mac, GenesisD [address] [place] [address] Pharmacist Pharmacist 07/11/18 Isaac Bro, RN Lead Black Leather Buffer Primary Care - CC 09/01/18 Onesimo Bruno MD [address] [place] [address] Assigned PCP 07/30/20 Rafita Ayers MD [address] [place] [address] Assigned Pulmonology Provider 10/12/20 Flo Henry MD [address] [address] Assigned Behavioral Health Provider 09/21/20 Jana Vick, [facility] Community Health Worker Primary Care - CC 06/08/21 Lorri Larsen MD [address] [place] [address] Otolaryngology 07/21/21 Lorri Larsen MD [address] [place] [address] Assigned Surgical Provider 10/10/21 Rafita Ayers MD [address] [place] [address] Critical Care 11/30/21 Kaelyn New, [place] [address] [place] [address] Cdl Dedicated Truck Driver Audiology 12/09/21 Marino Hayes MD [address] [place] [address] Cardiovascular Disease 09/28/22 Marino Hayes MD [address] [place] [address] Assigned Heart and Vascular Provider 10/09/22 documented as of this encounter
--- OUTSIDE RECORDS SUMMARY | 2023-02-27 14:27 | XMS_ITS | Encounter Summary ---
Author Name Unknown Organization [place] Address [address] [place] [address] Care Team Providers Care Boatswain'S Mate Name Role Phone Onesimo Bruno MD Primary Care Provider [phone] Bhavna Mac PharmD Unavailable [phone] Isaac Bro RN Unavailable Unavailable Onesimo Bruno MD Unavailable [phone] Rafita Ayers MD Unavailable [phone] Flo Henry MD Unavailable [phone] Jana Vick CHW Unavailable UnavailLorri Ulloa MD Unavailable [phone] Lorri Larsen MD Unavailable [phone] Rafita Ayers MD Unavailable [phone] Kaelyn New Unavailable [phone] Marino Hayes MD Unavailable + [phone] Marino Hayes MD Unavailable + [phone] Reason for Visit * Reason Comments Follow Up Pt states he has not been able to schedule cardio/pulmonary rehab in [facility]. Has spoken with Vishnu Fu Customer Service Attendant. Neuropathy Feet. Pt states he i s wondering if there is a therapy for this Encounter Details Date Type Department Care Team (Late st Contact Info) Description 01/12/2023 2:20 PM ALPINE PATROLLER Virtual Visit [address] [place] [phone] Onesimo Bruno MD [address] [place] [address] NAVAS (dyspnea on exertion) (Primary Dx); Morbid obesity (H); Physical deconditioning; Neuropathy of both feet; Bipolar affective disorder, currently depressed, moderate (H) Social History Tobacco Use Types Packs/Day Years [...] you got money to buy more? No 01/12/2023 Within the past 12 months, d id the food you bought just not last and you didn? t have money to get more? No 01/12/2023 Housing Stability Answer Date Recorded Do you have housing? Yes 01/12/2023 Are you worried about losing your housing? No 01/12/2023 Financial Resource Strain Answer Date R ecorded Within the past 12 months, h ave you or your family members you live with been unable to get utilities (heat, electricity) when it was really needed? No 01/12/2023 Transportation Needs Answer Date Record ed Within the past 12 months, h as lack of transportation kept you from medical appointments, getting your medicines, non-medical meetings or appointments, work, or from getting things that you need? No 01/12/2023 Interpersonal Safety Answer Date Record ed Do [...] Progress Notes * Onesimo Bruno MD - 01/12/2023 2:20 PM CST Roger is a 72 year old who is being evaluated via a billable video visit. How would you like to obtain your AVS? MyChart If the video visit is dropped, the invitation should be resent by: Text to cell phone: [phone] Will anyone else be joining your video visit? No 1. NAVAS (dyspnea on exertion) He needs to get back into some rehab and as he is severely deconditioned. I have urged him to car pick up driver the phone immediately after our visit and call the rehab facility to get set up. 2. Morbid obesity (H) As above. 3. Physical deconditioning As above 4. Neuropathy of both feet He is not having pain so I have recommended that we do no further evaluation at this point and justfollow clinically. 5. Bipolar depression. He seems to be doing better today. Continue close follow- up with his mental health providers. Subjective Roger is a 72 year old, presenting for the following health issues: Follow Up (Pt states he has not been able to schedule cardio/pulmonary rehab in [facility]. Has spoken with Vishnu Fu Customer Service Attendant. ) and Neuropathy (Feet. Pt states he is wondering if there is a therapy for this) History of Present Illness Reason for visit: Follow up He eats 2-3 servings of fruits and vegetables daily.He consumes 0 sweetened beverage(s) daily.He exercises with enough effort to increase his heart rate 9 or less minutes per day. He exercises with enough effort to increase his heart rate 3 or less days per week. He is missing 2 dose(s) of medications per week. He is not taking prescribed medications regularly due to other. Roger joins me on a video visit. Since I saw him last he still has not got set up for his cardiopulmonary rehab. He ran into issues with scheduling. Our care coordination folks were going to help out with that. Patient has poor motivation to do any things and he also has poor concentration at times. Hard to keep him on task. He has pretty profound mental health issues and following with Dr. Perez at psychiatry. They increased his venlafaxine. Talk is may be adding back a mood stabilizer. He has not been having any manic episodes recently. He notes since coming off of the Depakote that he has some neuropathy in his feet. Etiology unclear but possibly due to longstanding prediabetes. Its not painful. Review of Systems Objective Vitals - Patient Reported Weight (Patient Reported): 137 kg (302 lb) Pain Score: No Pain (0) Physical Exam Pleasant gentleman who looks well on video. Video-Visit Details Type of service: Video Visit Video Start Time: 1426 Video End Time:145 Originating Location (pt. Location): Home Distant Location (provider location): On-site Platform used for Video Visit: Rusty NE PATROLLER documented in this encounter Plan of Treatment Upcoming Encounters Date Type Department Care Team (Late st Contact Info) Description 04/04/2023 1:00 PM ALPINE PATROLLER Virtual Visit [facility] [address] [place] [phone] Keke Brooks, RD 420 [facility] 84 [place] [address] documented as of this encounter Goals Goal [...] I will look into working with a customer trainer to assist me with resistance training. 5. I will report progress towards this goal at outreach telephone calls from the [facility] team Discussed 12/28/22 documented as of this encounter Visit Diagnoses Diagnosis NAVAS (dyspnea on exertion)- Primary Other dyspnea and respiratory abnormality Morbid obesity (H) Morbid obesity Physical deconditioning Debility, unspecified Neuropathy of both feet Mononeuritis of lower limb, unspecified Bipolar affective disorder, currently depressed, moderate (H) Bipolar I disorder, most recent episode (or current) depressed, moderate documented in this encounter Additional Health Concerns Problem Noted Date Diagnosed Date HP GENERAL PROBLEM 11/13/2021 Assessment Noted Time PHQ-9 Depression Total Score: 7 12/09/19 23 11:14 AM CDT documented as of this encounter Care Teams Boatswain'S Mate Relationship Specialty Start Date End Date Onesimo Bruno MD PCP - General 08/11/06 Bhavna Mac, GenesisD [address] [place] [address] Pharmacist Pharmacist 07/11/18 Isaac Bro, RN Lead Customer Service Attendant Primary Care - CC 09/01/18 Onesimo Bruno MD [address] [place] [address] Assigned PCP 07/30/20 Rafita Ayers MD [address] [place] [id number] Assigned Pulmonology Provider 10/12/20 Flo Henry MD [address] [place] [address] Assigned Behavioral Health Provider 09/21/20 Jana Vick W Community Health Worker Primary Care - CC 06/08/21 Lorri Larsen MD [address] [place] [address] Otolaryngology 07/21/21 Lorri Larsen MD [address] [place] [address] [phone] Assigned Surgical Provider 10/10/21 Rafita Ayers MD [address] [place] [address] Critical Care 11/30/21 Kaelyn New AuD [address] [place] [address] Entry Writer Audiology 12/09/21 Marino Hayes MD [address] [place] [address] Cardiovascular Disease 09/28/22 Marino Hayes MD [address] [place] [address] Assigned Heart and Vascular Provider 10/09/22 documented as of this encounter
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
--- OUTSIDE RECORDS SUMMARY | 2023-02-27 14:27 | XMS_ITS | Encounter Summary ---
Author Name Unknown Organization [facility] Address [address] [place] [address] Care Team Providers Care Annealer Helper Name Role Phone Onesimo Bruno MD Primary Care Provider [phone] Bhavna Mac PharmD Unavailable [phone] Isaac Bro RN Unavailable Unavailable Onesimo Bruno MD Unavailable [phone] Rafita Ayers MD Unavailable +[phone] Flo Henry MD Unavailable +[phone] Jana Vick W Unavailable UnavailLorri Ulloa MD Unavailable +[phone] Lorri Larsen MD Unavailable +[phone] Rafita Ayers MD Unavailable [phone] Kaelyn New Unavailable +[phone] Marino Hayes MD Unavailable + [phone] Marino Hayes MD Unavailable + [phone] Encounter Details Date Type Department Care Team (Late st Contact Info) Description 12/13/2022 Telephone [facility] [address] [address] Rafita Ayers MD [address] [place] [address] Social History Tobacco Use Types Packs/Day Years [...] st Contact Info) Description 04/04/2023 1:00 PM LOCK EXPERT Virtual Visit [facility] [address] [address] Keke Brooks, RD 420 [facility] 84 [place] [address] documented as of this encounter Goals Goal [...] will look into working with a personal service workers to assist me with resistance training. 5. I will report progress towards this goal at outreach telephone calls from the [facility] team Discussed 12/28/22 documented as of this encounter Visit Diagnoses Not on filedocumented in this encounter Additional Health Concerns Problem Noted Date Diagnosed Date HP GENERAL PROBLEM 11/13/2021 Assessment Noted Time PHQ-9 Depression Total Score: 7 12/09/19 23 11:14 AM CDT documented as of this encounter Care Teams Annealer Helper Relationship Specialty Start Date End Date nOesimo Bruno MD PCP - General 08/11/06 Bhavna Mac, PharmD [address] [place] [address] Pharmacist Pharmacist 07/11/18 Isaac Bro, RN Lead Software Reverse Engineer Primary Care - CC 09/01/18 Onesimo Bruno MD 1390 [place] [address] Assigned PCP 07/30/20 Rafita Ayers MD [address] [place] [address] Assigned Pulmonology Provider 10/12/20 Flo Henry MD [address] [address] Assigned Behavioral Health Provider 09/21/20 Jana Vick W Community Health Worker Primary Care - CC 06/08/21 Lorri Larsen MD [address] [place] [address] Otolaryngology 07/21/21 Lorri Larsen MD [address] [place] [address] Assigned Surgical Provider 10/10/21 Rafita Ayers MD [address] [place] [address] Critical Care 11/30/21 Kaelyn New AuD [address] [place] [address] Electrical Transmission Engineer Audiology 12/09/21 Marino Hayes MD [address] [place] [address] Cardiovascular Disease 09/28/22 Marino Hayes MD [address] [place] [address] Assigned Heart and Vascular Provider 10/09/22 documented as of this encounter
--- OUTSIDE RECORDS SUMMARY | 2023-02-27 14:27 | XMS_ITS | Encounter Summary ---
Author Name Unknown Organization [facility] Address [address] [place] [address] Care Team Providers Care County Surveyor Name Role Phone Onesimo Bruno MD Primary Care Provider [phone] Bhavna Mac PharmD Unavailable [phone] Isaac Bro RN Unavailable Unavailable Onesimo Bruno MD Unavailable [phone] Rafita Ayers MD Unavailable +[phone] Flo Henry MD Unavailable [phone] Jana Vick W Unavailable UnavailLorri Ulloa MD Unavailable +[phone] Lorri Larsen MD Unavailable +[phone] Rafita Ayers MD Unavailable +[phone] Kaelyn New Unavailable +[phone] Marino Hayes MD Unavailable + [phone] Marino Hayes MD Unavailable + [phone] Reason for Visit * Reason Comments Medication Refill Encounter Details Date Type Department Care Team (Late st Contact Info) Description 02/17/2023 Refill [facility] [address] [place] [address] Onesimo Bruno MD [address]0 [place] [address] Medication Refill Social History Tobacco Use Types [...] st Contact Info) Description 04/04/2023 1:00 PM PIN WORKER Virtual Visit [facility] [address] [address] Keke Brooks, RD 420 [facility] 84 [place] [address] documented as of this encounter Goals Goal [...] look into working with a personal lines account manager to assist me with resistance training. 5. I will report progress towards this goal at outreach telephone calls from the [facility] team Discussed 12/28/22 documented as of this encounter Visit Diagnoses Diagnosis Atherosclerosis of [place] coronary artery of [place] heart without angina pectoris documented in this encounter Additional Health Concerns Problem Noted Date Diagnosed Date HP GENERAL PROBLEM 11/13/2021 Assessment Noted Time PHQ-9 Depression Total Score: 7 12/09/19 23 11:14 AM CDT documented as of this encounter Care Teams County Surveyor Relationship Specialty Start Date End Date Onesimo Bruno MD PCP - General 08/11/06 Bhavna Mac, GenesisD [address] [place] [address] Pharmacist Pharmacist 07/11/18 Isaac Bro, RN Lead Brick Washer Primary Care - CC 09/01/18 Onesimo Bruno MD [address]0 [place] [address] Assigned PCP 07/30/20 Rafita Ayers MD [address] [place] [address] Assigned Pulmonology Provider 10/12/20 Flo Henry MD [address] [address] Assigned Behavioral Health Provider 09/21/20 Jana Vick, W Community Health Worker Primary Care - CC 06/08/21 Lorri Larsen MD [address] [place] [address] Otolaryngology 07/21/21 Lorri Larsen MD [address] [place] [address] Assigned Surgical Provider 10/10/21 Rafita Ayers MD [address] [place] [address] Critical Care 11/30/21 Kaelyn New AuD [facility]5 [place] [address] Air Quality Instrument Specialist Audiology 12/09/21 Marino Hayes MD [address] [place] [address] Cardiovascular Disease 09/28/22 Marino Hayes MD [address] [place] [address] Assigned Heart and Vascular Provider 10/09/22 documented as of this encounter
--- OUTSIDE RECORDS SUMMARY | 2023-02-27 14:27 | XMS_ITS | Encounter Summary ---
Author Name Unknown Organization [facility] Address [address] [place] [address] Care Team Providers Care Calibration Specialist Name Role Phone Onesimo Bruno MD Primary Care Provider [phone] Bhavna Mac PharmD Unavailable [phone] Isaac Bro RN Unavailable Unavailable Onesimo Bruno MD Unavailable [phone] Rafita Ayers MD Unavailable +[phone] Flo Henry MD Unavailable [phone] Jana Vick W Unavailable UnavailLorri Ulloa MD Unavailable +[phone] Lorri Larsen MD Unavailable [phone] Rafita Ayers MD Unavailable [phone] Kaelyn New Unavailable [phone] Marino Hayes MD Unavailable + [phone] Marino Hayes MD Unavailable + [phone] Reason for Visit * Reason Comments Medication Refill Encounter Details Date Type Department Care Team (Late st Contact Info) Description 01/20/2023 Refill [facility] [address] [place] [address] Onesimo Bruno MD [address]0 [place] [address] Medication Refill Social History Tobacco Use Types [...] st Contact Info) Description 04/04/2023 1:00 PM [employer] Virtual Visit [facility] [address] [address] Keke Brooks, RD 420 [facility] [address] [place] [address] documented as of this encounter Goals Goal [...] will attend all scheduled appointment with Dr. Tavraez regarding his weight loss management program and will follow up with is recommendations. 2. I will work with Cordell on healthy meal planning. 3. I will monitor my portion sizes at meals. 4. I will look into working with a personal care service provider to assist me with resistance training. 5. I will report progress towards this goal at outreach telephone calls from the [facility] team Discussed 12/28/22 documented as of this encounter Visit Diagnoses Diagnosis Atherosclerosis of [place] coronary artery of [place]into heart without angina pectoris documented in this encounter Additional Health Concerns Problem Noted Date Diagnosed Date HP GENERAL PROBLEM 11/13/2021 Assessment Noted Time PHQ-9 Depression Total Score: 7 12/09/19 23 11:14 AM CDT documented as of this encounter Care Teams Calibration Specialist Relationship Specialty Start Date End Date Onesimo Bruno MD PCP - General 08/11/06 Bhavna Mac, GenesisD [address] [place] [address] Pharmacist Pharmacist 07/11/18 Isaac Bro, RN Lead Property Management Supervisor Primary Care - CC 09/01/18 Onesimo Bruno MD [address] [place] [address] Assigned PCP 07/30/20 Rafita Ayers MD [address] [place] [address] Assigned Pulmonology Provider 10/12/20 Flo Henry MD [address] [address] Assigned Behavioral Health Provider 09/21/20 Jana Vick, W Community Health Worker Primary Care - CC 06/08/21 Lorri Larsen MD [address] [place] [address] Otolaryngology 07/21/21 Lorri Larsen MD [address] [place] [address] Assigned Surgical Provider 10/10/21 Rafita Ayers MD [address] [place] [address] Critical Care 11/30/21 Kaelyn New AuD [facility] [place] [address] Pvc Monitor Audiology 12/09/21 Marino Hayes MD [address] [place] [address] Cardiovascular Disease 09/28/22 Marino Hayes MD [address] [place] [address] Assigned Heart and Vascular Provider 10/09/22 documented as of this encounter
--- OUTSIDE RECORDS SUMMARY | 2023-02-27 14:27 | XMS_ITS | Encounter Summary ---
Author Name Unknown Organization [facility] Address [address] [place] [address] Care Team Providers Care Rice Cleaning Machine Tender Name Role Phone Onesimo Bruno MD Primary Care Provider [phone] Bhavna Mac PharmD Unavailable [phone] Isaac Bro RN Unavailable Unavailable Onesimo Bruno MD Unavailable [phone] Rafita Ayers MD Unavailable +[phone] Flo Henry MD Unavailable [phone] Jana Vick W Unavailable UnavailLorri Ulloa MD Unavailable +[phone] Lorri Larsen MD Unavailable [phone] Rafita Ayers MD Unavailable [phone] Kaelyn New Unavailable [phone] Marino Hayes MD Unavailable + [phone] Marino Hayes MD Unavailable + [phone] Reason for Visit * Reason Onset Date Comments [facility] 01/14 Encounter Details Date Type Department Care Team (Late st Contact Info) Description 01/26/2023 Telephone [facility] [address] [place] [address] Onesimo Bruno MD [address] [place] [address] [facility] Social History Tobacco Use Types Packs/Day [...] * Telephone Encounter - Chanda Calix - 02/01/2023 11:38 AM CST February 01, 2023 [facility]io-[facility] treatemtn was picked up from outbox of Dr. Bruno. Paperwork has been reviewed and is complete. Per initial initial request, this was sent via fax to [phone]. Chanda Calix HEAD FOREMAN * Telephone Encounter - Chanda Calix - 01/26/2023 10:57 AM CST January 26, 2023 [facility]iop[facility] was received via fax for Dr. Bruno to sign. Patient label was attached to paperwork and placed in provider's inbox to be signed. Chanda Calix HEAD FOREMAN documented in this encounter Plan of Treatment Upcoming Encounters Date Type Department Care Team (Late st Contact Info) Description 04/04/2023 1:00 PM OVERHEAD FOREMAN Virtual Visit [facility] [address] [place] [phone] Keke Brooks, RD 420 [facility] 84 [place], [place] [address] documented as of this encounter Goals Goal [...] will look into working with a personal development educator to assist me with resistance training. 5. I will report progress towards this goal at outreach telephone calls from the [facility] team Discussed 12/28/22 documented as of this encounter Visit Diagnoses Not on filedocumented in this encounter Additional Health Concerns Problem Noted Date Diagnosed Date HP GENERAL PROBLEM 11/13/2021 Assessment Noted Time PHQ-9 Depression Total Score: 7 12/09/19 23 11:14 AM CDT documented as of this encounter Care Teams Rice Cleaning Machine Tender Relationship Specialty Start Date End Date Onesimo Bruno MD PCP - General 08/11/06 Bhavna Mac, PharmD [address] [place] [address] Pharmacist Pharmacist 07/11/18 Isaac Bro, RN Lead Oil Field Laborer Primary Care - CC 09/01/18 Onesimo Bruno MD [address] [place] [address] Assigned PCP 07/30/20 Rafita Ayers MD [address] [place] [address] Assigned Pulmonology Provider 10/12/20 Flo Henry MD [address] [place] [address] Assigned Behavioral Health Provider 09/21/20 Jana Vick Vaibhav Community Health Worker Primary Care - CC 06/08/21 Lorri Larsen MD [address] [place] [address] Otolaryngology 07/21/21 Lorri Larsen MD [address] [place] [address]28[address] Assigned Surgical Provider 10/10/21 Rafita Ayers MD [address] [place] [address] Critical Care 11/30/21 Kaelyn New AuD [address] [place] [address] Bottom Presser Audiology 12/09/21 Marino Hayes MD [address] [place] [address] Cardiovascular Disease 09/28/22 Marino Hayes MD [address] [place] [address] Assigned Heart and Vascular Provider 10/09/22 documented as of this encounter
--- OUTSIDE RECORDS SUMMARY | 2023-02-27 14:27 | XMS_ITS | Encounter Summary ---
Author Name Unknown Organization [facility] Address [address] [place] [id number] Care Team Providers Care Verification Rep Name Role Phone Johana Daley MD Primary Care Provider [phone] Bhavna Mac PharmD Unavailable [phone] Isaac Bro RN Unavailable Unavailable Johana Daley MD Unavailable [phone] Rafita Ayers MD Unavailable [phone] Flo Henry MD Unavailable [phone] Jana Vick Unavailable UnavailLorri Ulloa MD Unavailable [phone] Lorri Larsen MD Unavailable [phone] Rafita Ayers MD Unavailable [phone] Kaelyn New Unavailable [phone] Marino Hayes MD Unavailable [phone] Marino Hayes MD Unavailable + [phone] Reason for Referral * Rehab Therapy Physical Therapy (Routine: Next available opening) - Referral NOT Required Specialty Diagnoses / Procedures Referred By Jason villalpando Referred To Contact Physical Therapy Diagnoses Morbid obesity (H) Physical deconditioning Johana Daley MD [address] [place] [address] Referral ID Status Reason Start Date Expiration Date V isits Requested Visits Authorized [id number] Referral NOT Required 12/08/2022 12/08/2023 1 1 Question Answer Preferred Location: [facility] Scheduling Instructions: If you have not heard from the scheduling office within 2 business days, please call [phone] for [facility], for [place] and [phone] for [place]. Course of Action Evaluation and Treatment Adult or Pediatrics Adult Specialty Services: Other My Clinical Question Is: graded exercise program/reconditioning. Comments Please be aware that coverage of these services is subject to the terms and limitations of your health insurance plan. Call member services at your health plan with any benefit or coverage questions. If you have not heard from the scheduling office within 2 business days, please call [phone] for [facility], for [place] and [phone] for [place]. 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); NAVAS (dyspnea on exertion); Morbid obesity (H); Moderate persistent asthma without complication; IDA (obstructive sleep apnea); Need for vaccination against respiratory syncytial virus; Neuropathy of both feet; Physical deconditioning; Screening for prostate cancer; Atherosclerosis of mi'kmaq coronary artery of mi[place]kmaq heart, unspecified whether angina present Social History Tobacco Use Types Packs/Day Years [...] PM CDT documented as of this encounter Last Filed Vital Signs Vital Sign Reading Time Taken Comments Blood Pressure 118/61 12/08/2022 11:20 AM CDT Pulse 80 12/08/2022 11:20 AM CDT Temperature 37.2 ??C (98.9 ??F) 12/08/2022 11:20 AM C DT Respiratory Rate - - Oxygen Saturation 94% 12/08/2022 11:20 AM CDT Inhaled Oxygen Concentration - - Weight 137 kg (302 lb) 12/08/2022 11:20 AM CDT Height 182.9 cm (6') 12/08/2022 11:20 AM CDT Body Mass Index 40.96 12/08/2022 11:20 AM CDT documented in this encounter Patient Instructions * Patient Instructions* Johana Daley MD - 12/08/2022 11:40 AM CDT Images from the original note were not included. Patient Education Personalized Prevention Plan You are due for the preventive services outlined below. Your care team is available to assist you in scheduling these services. If you have already completed any of these items, please share that information with your care team to update in your medical record. Health Maintenance Due Topic Date Due ??? RSV VACCINE 60+ (1 - 1-dose 60+ series) Never done ??? Flu Vaccine (1) 10/15/2022 ??? COVID-19 Vaccine () 11/19/2022 ??? ANNUAL REVIEW OF HM ORDERS 11/30/2022 ??? Annual Wellness Visit 11/30/2022 Patient Education Personalized Prevention Plan You are due for the preventive services outlined below. Your care team is available to assist you in scheduling these services. If you have already completed any of these items, please share that information with your care team to update in your medical record. Health Maintenance Due Topic Date Due ??? RSV VACCINE 60+ (1 - 1-dose 60+ series) Never done ??? Flu Vaccine (1) 10/15/2022 ??? COVID-19 Vaccine () 11/19/2022 ??? ANNUAL REVIEW OF HM ORDERS 11/30/2022 ??? Annual Wellness Visit 11/30/2022 Learning About Being Physically Active What is physical activity? Being physically active means doing any kind of activity that gets your body moving. The types of physical activity that can help you get fit and stay healthy include: Aerobic or cardio activities. These make your heart beat faster and make you breathe harder, suchas brisk walking, riding a bike, or running. They strengthen your heart and lungs and build up yourendurance. Strength training activities. These make your muscles work against, or resist, something. Examples include lifting weights or doing push-ups. These activities help tone and strengthen your muscles and bones. Stretches. These let you move your joints and muscles through their full range of motion. Stretching helps you be more flexible. Reaching a balance between these three types of physical activity is important because each one contributes to your overall fitness. What are the benefits of being active? Being active is one of the best things you can do for your health. It helps you to: Feel stronger and have more energy to do all the things you like to do. Focus better at school or work. Feel, think, and sleep better. Reach and stay at a healthy weight. Lose fat and build lean muscle. Lower your risk for serious health problems, including diabetes, heart attack, high blood pressure,and some cancers. Keep your heart, lungs, bones, muscles, and joints strong and healthy. How can you make being active part of your life? Start slowly. Make it your long-term goal to get at least 30 minutes of exercise on most days of the week. Walking is a good choice. You also may want to do other activities, such as running, swimming, cycling, or playing tennis or team sports. Pick activities that you like--ones that make your heart beat faster, your muscles stronger, and your muscles and joints more flexible. If you find more than one thing you like doing, do them all. You don't have to do the same thing every day. Get your heart pumping every day. Any activity that makes your heart beat faster and keeps it at that rate for a while counts. Here are some great ways to get your heart beating faster: Go for a brisk walk, run, or bike ride. Go for a hike or swim. Go in-line skating. Play a game of touch football, basketball, or soccer. Ride a bike. Play tennis or racquetball. Climb stairs. Even some executive director sheltered workshop can be aerobic--just do them at a faster pace. Vacuuming, raking or mowing the lawn, sweeping the garage, and washing and waxing the car all can help get your heart rate up. Strengthen your muscles during the week. You don't have to lift heavy weights or grow big, bulky muscles to get stronger. Doing a few simple activities that make your muscles work against, or resist, something can help you get stronger. For example, you can: Do push-ups or sit-ups, which use your own body weight as resistance. Lift weights or dumbbells or use stretch bands at home or in a gym or community center. Stretch your muscles often. Stretching will help you as you become more active. It can help you stay flexible, loosen tight muscles, and avoid injury. It can also help improve your balance and posture and can be a great way to relax. Be sure to stretch the muscles you'll be using when you work out. It's best to warm your muscles slightly before you stretch them. Walk or do some other light aerobic activity for a few minutes, and then start stretching. When you stretch your muscles: Do it slowly. Stretching is not about going fast or making sudden movements. Don't push or bounce during a stretch. Hold each stretch for at least 15 to 30 seconds, if you can. You should feel a stretch in the muscle, but not pain. Breathe out as you do the stretch. Then breathe in as you hold the stretch. Don't hold your breath. If you're worried about how more activity might affect your health, have a checkup before you start. Follow any special advice your doctor gives you for getting a smart start. Where can you learn more? Go to https://www.Connectivity.[employer]/patiented Enter W332 in the search box to learn more about Learning About Being Physically Active. Current as of: November 23, 2021?Content Version: 13.7 ?? Branch[employer]. Care instructions adapted under license by your healthcare professional. If you have questions about a medical condition or this instruction, always ask your healthcare professional. [employer] disclaims any warranty or liability for your use of this information. Learning About Dietary Guidelines What are the Dietary Guidelines for Americans? Dietary Guidelines for Americans provide tips for eating well and staying healthy. This helps reduce the risk for long-term (chronic) diseases. These guidelines recommend that you: Eat and drink the right amount for you. The U.[place]. government's food guide is called MyPlate. It can help you make your own well-balanced eating plan. Try to balance your eating with your activity. This helps you stay at a healthy weight. Drink alcohol in moderation, if at all. Limit foods high in salt, saturated fat, trans fat, and added sugar. These guidelines are from the U.S. Department of Agriculture and the U.S. Department of Health and Human Services. They are updated every 5 years. What is MyPlate? MyPlate is the U.S. government's food guide. It can help you make your own well- balanced eating plan. A balanced eating plan means that you eat enough, but not too much, and that your food gives you the nutrients you need to stay healthy. MyPlate focuses on eating plenty of whole grains, fruits, and vegetables, and on limiting fat and sugar. It is available online at www.ChooseMyPlate.gov. How can you get started? If you're trying to eat healthier, you can slowly change your eating habits over time. You don't have to make big changes all at once. Start by adding one or two healthy foods to your meals each day. Grains Choose whole-grain breads and cereals and whole-wheat pasta and whole-grain crackers. Vegetables Eat a variety of vegetables every day. They have lots of nutrients and are part of a heart-healthy diet. Fruits Eat a variety of fruits every day. Fruits contain lots of nutrients. Choose fresh fruit instead of fruit juice. Protein foods Choose fish and lean poultry more often. Eat red meat and fried meats less often. Dried beans, tofu, and nuts are also good sources of protein. Dairy Choose low-fat or fat-free products from this food group. If you have problems digesting milk, try eating cheese or yogurt instead. Fats and oils Limit fats and oils if you're trying to cut calories. Choose healthy fats when you cook. These include canola oil and olive oil. Where can you learn more? Go to https://www.Connectivity.net/patiented Enter D676 in the search box to learn more about Learning About Dietary Guidelines. Current as of: April 14, 2022?Content Version: 13.7 ?? Branch[employer]. Care instructions adapted under license by your healthcare professional. If you have questions about a medical condition or this instruction, always ask your healthcare professional. [employer] disclaims any warranty or liability for your use of this information. Activities of Daily Living Your Health Risk Assessment indicates you have difficulties with activities of daily living such ashousework, bathing, preparing meals, taking medication, etc. Please make a follow up appointment for us to address this issue in more detail. Bladder Training: Care Instructions Your Care Instructions Bladder training is used to treat urge incontinence and stress incontinence. Urge incontinence means that the need to urinate comes on so fast that you can't get to a toilet in time. Stress incontinence means that you leak urine because of pressure on your bladder. For example, it may happen when you laugh, cough, or lift something heavy. Bladder training can increase how long you can wait before you have to urinate. It can also help your bladder hold more urine. And it can give you better control over the urge to urinate. It is important to remember that bladder training takes a few weeks to a few months to make a difference. You may not see results right away, but don't give up. Follow-up care is a carmona part of your treatment and safety. Be sure to make and go to all appointments, and call your doctor if you are having problems. It's also a good idea to know your test resultsand keep a list of the medicines you take. How can you care for yourself at home? Work with your doctor to come up with a bladder training program that is right for you. You may useone or more of the following methods. Delayed urination In the beginning, try to keep from urinating for 5 minutes after you first feel the need to go. While you wait, take deep, slow breaths to relax. Kegel exercises can also help you delay the need to go to the bathroom. After some practice, when you can easily wait 5 minutes to urinate, try to wait 10 minutes before you urinate. Slowly increase the waiting period until you are able to control when you have to urinate. Scheduled urination Empty your bladder when you first wake up in the morning. Schedule times throughout the day when you will urinate. Start by going to the bathroom every hour, even if you don't need to go. Slowly increase the time between trips to the bathroom. When you have found a schedule that works well for you, keep doing it. If you wake up during the night and have to urinate, do it. Apply your schedule to waking hours only. Kegel exercises These tighten and strengthen pelvic muscles, which can help you control the flow of urine. (If doing these exercises causes pain, stop doing them and talk with your doctor.) To do Kegel exercises: Squeeze your muscles as if you were trying not to pass gas. Or squeeze your muscles as if you were stopping the flow of urine. Your belly, legs, and buttocks shouldn't move. Hold the squeeze for 3 seconds, then relax for 5 to 10 seconds. Start with 3 seconds, then add 1 second each week until you are able to squeeze for 10 seconds. Repeat the exercise 10 times a session. Do 3 to 8 sessions a day. When should you call for help? Watch closely for changes in your health, and be sure to contact your doctor if: ?? Your incontinence is getting worse. ?? You do not get better as expected. Where can you learn more? Go to https://www.Connectivity.[employer]/patiented Enter V684 in the search box to learn more about Bladder Training: Care Instructions. Current as of: April 14, 2022?Content Version: 13.7 ?? Branch2. Care instructions adapted under license by your healthcare professional. If you have questions about a medical condition or this instruction, always ask your healthcare professional. [employer] disclaims any warranty or liability for your use of this information. Learning About Depression Screening What is depression screening? Depression screening is a way to see if you have depression symptoms. It may be done by a doctor orcounselor. It's often part of a routine checkup. That's because your mental health is just as important as your physical health. Depression is a mental health condition that affects how you feel, think, and act. You may: Have less energy. Lose interest in your daily activities. Feel sad and grouchy for a long time. Depression is very common. It affects people of all ages. Many things can lead to depression. Some people become depressed after they have a stroke or find out they have a major illness like cancer or heart disease. The of a loved one or a breakup maylead to depression. It can run in families. Most experts believe that a combination of inherited genes and stressful life events can cause it. What happens during screening? You may be asked to fill out a form about your depression symptoms. You and the doctor will discussyour answers. The doctor may ask you more questions to learn more about how you think, act, and feel. What happens after screening? If you have symptoms of depression, your doctor will talk to you about your options. Doctors usually treat depression with medicines or counseling. Often, combining the two works best.Many people don't get help because they think that they'll get over the depression on their own. But people with depression may not get better unless they get treatment. The cause of depression is not well understood. There may be many factors involved. But if you havedepression, it's not your fault. A serious symptom of depression is thinking about or suicide. If you or someone you care about talks about this or about feeling hopeless, get help right away. It's important to know that depression can be treated. Medicine, counseling, and self-care may help. Where can you learn more? Go to https://www.Connectivity.[employer]/patiented Enter T185 in the search box to learn more about Learning About Depression Screening. Current as of: December 03, 2021?Content Version: 13.7 ?? Branch2. Care instructions adapted under license by your healthcare professional. If you have questions about a medical condition or this instruction, always ask your healthcare professional. [employer] disclaims any warranty or liability for your use of this information. Preventing Falls: Care Instructions Talk to your doctor about the medicines you take. Ask if any of them increase the risk of falls andwhether they can be changed or stopped. Try to exercise regularly. It can help improve your strength and balance. This can help lower your risk of falling. Practice fall safety and prevention. Wear low-heeled shoes that fit well and give your feet good support. Talk to your doctor if you have foot problems that make this hard. Carry a cellphone or wear a medical alert device that you can use to call for help. Use stepladders instead of chairs to reach high objects. Don't climb if you're at risk for falls. Ask for help, if needed. Wear the correct eyeglasses, if you need them. Make your home safer. Remove rugs, cords, clutter, and furniture from walkways. Keep your house well lit. Use night-lights in hallways and bathrooms. Install and use sturdy handrails on stairways. Wear nonskid footwear, even inside. Don't walk barefoot or in socks without shoes. Be safe outside. Use handrails, curb cuts, and ramps whenever possible. Keep your hands free by using a shoulder bag or backpack. Try to walk in well-lit areas. Watch out for uneven ground, changes in pavement, and debris. Be careful in the winter. Walk on the grass or gravel when sidewalks are slippery. Use de-icer on steps and walkways. Add non-slip devices to shoes. Put grab bars and nonskid mats in your shower or tub and near the toilet. Try to use a shower chairor bath bench when bathing. Get into a tub or shower by putting in your weaker leg first. Get out with your strong side first. Have a phone or medical alert device in the bathroom with you. Where can you learn more? Go to https://www.Connectivity.net/patiented Enter G117 in the search box to learn more about Preventing Falls: Care Instructions. Current as of: December 23, 2021?Content Version: 13.7 ?? Branch2. Care instructions adapted under license by your healthcare professional. If you have questions about a medical condition or this instruction, always ask your healthcare professional. [employer] disclaims any warranty or liability for your use of this information. How to Get Up Safely After a Fall: Care Instructions Overview If you have injuries, health problems, or other reasons that may make it easy for you to fall at home, it is a good idea to learn how to get up safely after a fall. Learning how to get up correctly can help you avoid making an injury worse. Also, knowing what to do if you cannot get up can help you stay safe until help arrives. Follow-up care is a carmona part of your treatment and safety. Be sure to make and go to all appointments, and call your doctor if you are having problems. It's also a good idea to know your test resultsand keep a list of the medicines you take. How can you care for yourself after a fall? If you think you can get up First lie still for a few minutes and think about how you feel. If your body feels okay and you think you can get up safely, follow the rest of the steps below: Look for a chair or other piece of furniture that is close to you. Roll onto your side and rest. Roll by turning your head in the direction you want to roll, move your shoulder and arm, then hip and leg in the same direction. Lie still for a moment to let your blood pressure adjust. Slowly push your upper body up, lift your head, and take a moment to rest. Slowly get up on your hands and knees, and crawl to the chair or other stable piece of furniture. Put your hands on the chair. Move one foot forward, and place it flat on the floor. Your other leg should be bent with the knee on the floor. Rise slowly, turn your body, and sit in the chair. Stay seated for a bit and think about how you feel. Call for help. Even if you feel okay, let someone know what happened to you. You might not know that you have a serious injury. If you cannot get up If you think you are injured after a fall or you cannot get up, try not to panic. Call out for help. If you have a phone within reach or you have an emergency call device, use it to call for help. If you do not have a phone within reach, try to slide yourself toward it. If you cannot get to the phone, try to slide toward a door or window or a place where you think you can be heard. [place] or use an object to make noise so someone might hear you. If you can reach something that you can use for a pillow, place it under your head. Try to stay warm by covering yourself with a blanket or clothing while you wait for help. When should you call for help? Call 911 anytime you think you may need emergency care. For example, call if: ?? You passed out (lost consciousness). ?? You cannot get up after a fall. ?? You have severe pain. Call your doctor now or seek immediate medical care if: ?? You have new or worse pain. ?? You are dizzy or lightheaded. ?? You hit your head. Watch closely for changes in your health, and be sure to contact your doctor if: ?? You do not get better as expected. Where can you learn more? Go to https://www.Connectivity.net/patiented Enter G513 in the search box to learn more about How to Get Up Safely After a Fall: Care Instructions. Current as of: 2021?Content Version: 13.7 ?? Branch2. Care instructions adapted under license by your healthcare professional. If you have questions about a medical condition or this instruction, always ask your healthcare professional. [employer] disclaims any warranty or liability for your use of this information. documented in this encounter Progress Notes * Johana Daley MD - 12/08/2022 11:40 AM CDT SUBJECTIVE: Roger is a 71 year old who presents for Preventive Visit. 12/08/2022 11:19 AM Additional Questions Roomed by Brigette Accompanied by Cordell - Spouse Are you in the first 12 months of your Medicare coverage? No Healthy Habits: In general, how would you rate your overall health? Good Frequency of exercise: 1 day/week Duration of exercise: Less than 15 minutes Do you usually eat at least 4 servings of fruit and vegetables a day, include whole grains & fiber and avoid regularly eating high fat or junk foods? No Taking medications regularly: No Barriers to taking medications: Problems remembering to take them Medication side effects: Lightheadedness and Other Ability to successfully perform activities of daily living: Transportation requires assistance and medication administration requires assistance Home Safety: Lack of grab bars in the bathroom and lighting is poor Hearing Impairment: No hearing concerns In the past 6 months, have you been bothered by leaking of urine? Yes In general, how would you rate your overall mental or emotional health? Good Additional concerns today: No Today's PHQ-9 Score: 12/08/2022 11:14 AM PHQ-9 SCORE PHQ-9 Total Score MyChart 7 (Mild depression) PHQ-9 Total Score 7 Have you ever done Advance Care Planning? (For example, a Health Directive, POLST, or a discussion with a medical provider or your loved ones about your wishes): Yes, patient states has an Advance Care Planning document and will bring a copy to the clinic. Fall risk Fallen 2 or more times in the past year?: Yes Any fall with injury in the past year?: Yes Cognitive Screening 1) Repeat 3 items (Leader, Season, Table) 2) Clock draw: NORMAL 3) 3 item recall: Recalls 2 words Results: NORMAL CLOCK Mini-CogTM Copyright S Tonya. Licensed by the author for use in [facility]; reprinted with permission (marlene@[facility]). All rights reserved. Do you have sleep apnea, excessive snoring or daytime drowsiness? : yes Reviewed and updated as needed this visit by clinical staff Tobacco Allergies Meds Reviewed and updated as needed this visit by Provider Social History Tobacco Use Smoking status: Never Smokeless tobacco: Never Substance Use Topics Alcohol use: No 12/08/2022 11:13 AM Alcohol Use Prescreen: >3 drinks/day or >7 drinks/week? No Do you have a current opioid prescription? No Do you use any other controlled substances or medications that are not prescribed by a provider? 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 A lot of other things to discuss. Extensive visit today. Roger has a diagnosis of bipolar disorder. 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 He was hospitalized at least on 1 occasion but possibly more if I remember correctly with jose juan and depression. He has been on a variety of mood medications including mood stabilizers for some time. He was recently taken off of Depakote. He isbecoming increasingly despondent. He sits on the couch at home and looks at his computer but his is unable to get him to do pretty much anything else. He does have significant deconditioning as a result of his inactivity. He has a lot of other medical issues as well including coronary disease, morbid obesity, asthma and history of PE. 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 It sounds like he somehow got into it with the [employer]. He has no friends in [place] he tells me. Had just not been a good time for him currently. He has been trying to learn Macedonian. He notes his feet are numb bilaterally Current providers sharing in care for this patient include: Patient Care Team: Johana Daley MD as PCP - General Bhavna Mac, GenesisD as Pharmacist (Pharmacist) Isaac Bro, RN as Lead Product/Industry Consultant (Primary Care - CC) Johana Daley MD as Assigned PCP Flo Henry MD as Assigned Behavioral Health Provider Rafita Ayers MD as Assigned Pulmonology Provider Jana Vick MA as Community Health Worker (Primary Care - CC) Lorri Larsen MD as MD (Otolaryngology) Lorri Larsen MD as Assigned Surgical Provider Rafita Ayers MD as MD (Critical Care) Kaelyn New AuD as Youth Leader (Audiology) Marino Hayes MD as MD (Cardiovascular Disease) Marino Hayes MD as Assigned Heart and Vascular Provider The following health maintenance items are reviewed in Epic and correct as of today: Health Maintenance Topic Date Due RSV VACCINE 60+ (1 - 1-dose 60+ series) Never done INFLUENZA VACCINE (1) 10/15/2022 COVID-19 Vaccine (2022- season) 2022 ANNUAL REVIEW OF HM ORDERS 11/30/2022 MEDICARE ANNUAL WELLNESS VISIT 11/30/2022 MICROALBUMIN 03/18/2023 MITZI ASSESSMENT 03/18/2023 ASTHMA ACTION PLAN 03/18/2023 ASTHMA CONTROL TEST 06/09/2023 LIPID 07/22/2023 BMP 09/17/2023 HEMOGLOBIN 09/17/2023 FALL RISK ASSESSMENT 12/09/2023 PHQ-9 12/09/2023 COLORECTAL CANCER SCREENING 09/14/2025 ADVANCE CARE PLANNING 11/30/2026 DTAP/TDAP/TD IMMUNIZATION (4 - Td or Tdap) 09/24/2032 HEPATITIS C SCREENING Completed PHQ-2 (once per calendar year) Completed Pneumococcal Vaccine: 65+ Years Completed URINALYSIS Completed ZOSTER IMMUNIZATION Completed AORTIC ANEURYSM SCREENING (SYSTEM ASSIGNED) Completed IPV IMMUNIZATION Aged Out HPV IMMUNIZATION Aged Out MENINGITIS IMMUNIZATION Aged Out Review of Systems Constitutional: Negative for chills and fever. HENT: Negative for congestion, ear pain, hearing loss and sore throat. Eyes: Positive for visual disturbance. Negative for pain. Respiratory: Positive for shortness of breath. Negative for cough. Cardiovascular: Positive for palpitations and peripheral edema. Negative for chest pain. Gastrointestinal: Negative for abdominal pain, constipation, diarrhea, heartburn, hematochezia and nausea. Genitourinary: Positive for impotence and urgency. Negative for dysuria, frequency, genital sores, hematuria and penile discharge. Musculoskeletal: Negative for arthralgias, joint swelling and myalgias. Skin: Negative for rash. Neurological: Positive for dizziness and paresthesias. Negative for weakness and headaches. Psychiatric/Behavioral: Negative for mood changes. The patient is not nervous/anxious. OBJECTIVE: BP 118/61 (BP Location: Left arm, Patient Position: Sitting, Cuff Size: Adult Large) Pulse 80 Temp 98.9 ??F (37.2 ??C) (Tympanic) Ht 1.829 m (6') Wt 137 kg (302 lb) SpO2 94% BMI 40.96 kg/m?? Estimated body mass index is 40.96 kg/m?? as calculated from the following: Height as of this encounter: 1.829 m (6'). Weight as of this encounter: 137 kg (302 lb). Physical Exam Obese gentleman tearful at times. HEENT is otherwise unremarkable. Neck supple. Lungs clear. Heart regular. Abdomen is obese and soft. Extremities without edema. Normal monofilament testing ASSESSMENT / PLAN: 1. Encounter for Medicare annual wellness exam He is up-to-date on his health maintenance. I did send a prescription for RSV vaccine to his pharmacy if he wishes. He is extremely deconditioned and this is my biggest concern. That and his mental health. See below. 2. Bipolar affective disorder, currently depressed, moderate (H) I do distinctly remember patient having an episode of what seemed like jose juan although it could havebeen behavioral due to his brain injury. He has not had similar episodes since being on the mood stabilizer. We will need to follow that closely. I have urged that he follow-up soon with his psychiatrist and psychologist. 3. Mild neurocognitive disorder due to traumatic brain injury As above. 4. NAVAS (dyspnea on exertion) This point likely due to severe deconditioning. Will refer to physical therapy - Comprehensive metabolic panel (BMP + Alb, Alk Phos, ALT, AST, Total. Bili, TP); Future - UA Macroscopic with reflex to Microscopic and Culture - Lab Collect; Future - CBC with platelets; Future - Comprehensive metabolic panel (BMP + Alb, Alk Phos, ALT, AST, Total. Bili, TP) - UA Macroscopic with reflex to Microscopic and Culture - Lab Collect - CBC with platelets 5. Morbid obesity (H) As above. - Physical Therapy Referral; Future 6. Moderate persistent asthma without complication Continue inhalers. 7. IDA (obstructive sleep apnea) I am hoping he is compliant with his CPAP. I believe he is 8. Need for vaccination against respiratory syncytial virus - respiratory syncytial virus vaccine, bivalent (ABRYSVO) injection; Inject 0.5 mLs into the muscleonce for 1 dose Dispense: 1 each; Refill: 0 9. Neuropathy of both feet We will check labs as below and go from there. - Hemoglobin A1c; Future - TSH with free T4 reflex; Future - Hemoglobin A1c - TSH with free T4 reflex 10. Physical deconditioning Refer to physical therapy for graded exercise regimen. Hopefully this will also help him get out ofthe house and also may be be a social event - Physical Therapy Referral; Future 11. Screening for prostate cancer - PSA, screen; Future - PSA, screen 12. Atherosclerosis of mi'kmaq coronary artery of mi'kmaq heart, unspecified whether angina present - Lipid panel reflex to direct LDL Fasting; Future - Lipid panel reflex to direct LDL Fasting Patient has been advised of split billing requirements and indicates understanding: Yes COUNSELING: Reviewed preventive health counseling, as reflected in patient instructions BMI: Estimated body mass index is 40.96 kg/m?? as calculated from the following: Height as of this encounter: 1.829 m (6'). Weight as of this encounter: 137 kg (302 lb). Weight management plan: Patient referred to endocrine and/or weight management specialty He reports that he has never smoked. He has never used smokeless tobacco. Appropriate preventive services were discussed with this patient, including applicable screening asappropriate for fall prevention, nutrition, physical activity, Tobacco-use cessation, weight loss and cognition. Checklist reviewing preventive services available has been given to the patient. Reviewed patients plan of care and provided an AVS. The Complex Care Plan (for patients with higheracuity and needing more deliberate coordination of services) for Roger meets the Care Plan requirement. This Care Plan has been established and reviewed with the Patient and spouse. JOHANA DALEY MD [facility] Identified Health Risks: I have reviewed Opioid Use Disorder and Substance Use Disorder risk factors and made any needed referrals. He is at risk for lack of exercise and has been provided with information to increase physical activity for the benefit of his well-being. The patient was counseled and encouraged to consider modifying their diet and eating habits. He wasprovided with information on recommended healthy diet options. The patient reports that he has difficulty with activities of daily living. This is due to them only having 1 vehicle at the time. Information on urinary incontinence and treatment options given to patient. The patient's PHQ-9 score is consistent with mild depression. I have urged him and his to contact his psychiatrist and psychologist to discuss a plan of action going forward with his mental health. He is at risk for falling and has been provided with information to reduce the risk of falling at home. documented in this encounter Plan of Treatment Upcoming Encounters Date Type Department Care Team (Late st Contact Info) Description 04/04/2023 1:00 PM INSTRUCTOR EXTENSION WORK Virtual Visit [facility] [address] [place] [address] Keke Brooks, RD [address] [facility] [address] [place], [place] [id number] Scheduled Referrals Name Type Priority Associated Diagnoses Orde r Schedule Physical Therapy Referral Referral Routine: Next available opening Morbid obesity (H) Physical deconditioning Expected: 12/08/2022 (Approximate), Expires: 12/09/2023 documented as of this encounter Goals Goal [...] I will look into working with a clinical trainer to assist me with resistance training. 5. I will report progress towards this goal at outreach telephone calls from the [facility] team Discussed 12/28/22 documented as of this encounter Procedures Procedure Name Priority Date/Time Associated Diagnosis Comments UA MICROSCOPIC WITH REFLEX TO CULTURE Routine 12/08/2022 12:47 PM CDT NAVAS (dyspnea on exertion) UA MACROSCOPIC WITH REFLEX TO MICRO AND CULTURE Routine 12/08/2022 12:47 PM CDT NAVAS (dyspnea on exertion) TSH WITH FREE T4 REFLEX Routine 12/08/2022 12:47 PM CDT Neuropathy of both feet PROSTATE SPECIFIC ANTIGEN SCREEN Routine 12/08/2022 12:47 PM CDT Screening for prostate cancer LIPID REFLEX TO DIRECT LDL PANEL Routine 12/08/2022 12:47 PM CDT Atherosclerosis of mi'kmaq coronary artery of mi'kmaq heart, unspecified whether angina present HEMOGLOBIN A1C Routine 12/08/2022 12:47 PM CDT Neuropathy of both feet COMPREHENSIVE METABOLIC PANEL Routine 12/08/2022 12:47 PM CDT NAVAS (dyspnea on exertion) CBC WITH PLATELETS Routine 12/08/2022 12 :47 PM CDT NAVAS (dyspnea on exertion) documented in this encounter Results * (ABNORMAL) UA Microscopic with Reflex [...] 2:23 PM CDT Urine Culture not indicated Johana Daley MD LAB - URINE ORDERABL ES [facility] [address] [place] [address], [facility] * TSH with free T4 reflex (12/08/2022 12:47 PM CDT) TSH 1.23 0.30 - 4.20 uIU/mL 12/09/2022 8:44 AM CDT [facility] Blood STRUCTURE OF RIGHT UPPER LIMB / Unknown Venipuncture / Unknown 12/08/2022 12:47 PM CDT 12/08/2022 12:47 PM CDT Johana Daley MD LAB - BLOOD ORDERABL ES [facility] [place] [facility] [address] [facility], [address] [place] [address], [facility] [phone] * CBC with platelets (12/08/2022 12:47 PM [...] 12:47 PM CDT 12/08/2022 12:47 PM CDT Johana Daley MD LAB - BLOOD ORDERABL ES [facility] [address] [place] [address], [facility] * PSA, screen (12/08/2022 12:47 PM CDT) [...] methods or kits cannot be used interchangeably. Johana Daley MD LAB - BLOOD ORDERABL ES [facility] [address] [facility], [address] [place] [phone], [facility] [phone] * (ABNORMAL) UA Macroscopic with reflex to Microscopic and Culture - Lab Collect (12/08/2022 12:47 PMCDT) Color Urine Yellow Colorless, Straw, Light Yellow, Yellow 12/08/2022 2:00 PM CDT [facility] Appearance Urine Clear Clear 12/09/19 2:00 PM CDT [facility] Glucose Urine Negative Negative mg/dL 12/08/2022 2:00 PM CDT [facility] Bilirubin Urine Negative Negative 2:00 PM CDT [facility] Ketones Urine Negative Negative mg/dL 12/08/2022 2:00 PM CDT [facility] Specific [place] Urine 1.025 1.005 - 1.030 12/08/2022 2:00 PM CDT [facility] Blood Urine Trace(A) Negative 12/08/2022 2:00 PM CDT [facility] pH Urine 5.5 5.0 - 8.0 12/08/2022 2:00 PM CDT [facility] Protein Albumin Urine Negative Negative mg/dL 12/08/2022 2:00 PM CDT [facility] Urobilinogen Urine 0.2 0.2, 1.0 E.U./dL 12/08/2022 2:00 PM CDT [facility] Nitrite Urine Negative Negative 12/08/2022 2:00 PM CDT [facility] Leukocyte Esterase Urine Negative Negative 12/08/2022 2:00 PM CDT [facility] Urine MID-STREAM URINE SPECIMEN / Unknown Non-blood Collection / Unknown 12/08/2022 12:47 PM CDT 12/08/2022 12:47 PM CDT Johana Daley MD LAB - URINE ORDERABL ES [facility] [address] [place] [address], [facility] * (ABNORMAL) Comprehensive metabolic panel (BMP + [...] 12:47 PM CDT 12/08/2022 12:47 PM CDT Johana Daley MD LAB - BLOOD ORDERABL ES [facility] [place] [facility] [address] [facility], [address] [phone], [facility] [phone] * Lipid panel reflex to direct LDL [...] ??Greater than or equal to 220 mg/dL Johana Daley MD LAB - BLOOD ORDERABL ES [facility] [place] [facility] [address] [facility], [address] [phone], [facility] [phone] * (ABNORMAL) Hemoglobin A1c (12/08/2022 12:47 PM CDT) Hemoglobin A1C 6.0(H) 0.0 - 5.6 % 12/08/2022 1:02 PM CDT [facility] Comment: Normal <5.7% Prediabetes 5.7-6.4% ?? Diabetes 6.5% or higher Note: Adopted from ADA consensus guidelines. Blood STRUCTURE OF RIGHT UPPER LIMB / Unknown Venipuncture / Unknown 12/08/2022 12:47 PM CDT 12/08/2022 12:47 PM CDT Johana Daley MD LAB - BLOOD ORDERABL ES [facility] [address] [place] [address], [facility] documented in this encounter Visit Diagnoses Diagnosis Encounter for Medicare annual wellness exam- Primary Routine general medical examination at a health care facility Bipolar affective disorder, currently depressed, moderate (H) Bipolar I disorder, most recent episode (or current) depressed, moderate 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) NAVAS (dyspnea on exertion) Other dyspnea and respiratory abnormality Morbid obesity (H) Morbid obesity Moderate persistent asthma without complication Unspecified asthma IDA (obstructive sleep apnea) Obstructive sleep apnea (adult) (pediatric) Need for vaccination against respiratory syncytial virus Need for prophylactic vaccination and inoculation against respiratory syncytial virus Neuropathy of both feet Mononeuritis of lower limb, unspecified Physical deconditioning Debility, unspecified Screening for prostate cancer Special screening for malignant neoplasm of prostate Atherosclerosis of mi'kmaq coronary artery of mi'kmaq heart, unspecified whether angina present documented in this encounter Additional Health Concerns Problem Noted Date Diagnosed Date HP GENERAL PROBLEM 11/13/2021 Assessment Noted Time PHQ-9 Depression Total Score: 7 12/09/19 23 11:14 AM CDT documented as of this encounter Care Teams Verification Rep Relationship Specialty Start Date End Date Johana Daley MD PCP - General 08/11/06 Bhavna Mac PharmD [address] [place] [address] Pharmacist Pharmacist 07/11/18 Isaac Bro, RN Lead Product/Industry Consultant Primary Care - CC 09/01/18 Johana Daley MD [address] [place] [address] Assigned PCP 07/30/20 Rafita Ayers MD [address] [place] [address] Assigned Pulmonology Provider 10/12/20 Flo Henry MD [address] [address] Assigned Behavioral Health Provider 09/21/20 Jana Vick, W Community Health Worker Primary Care - CC 06/08/21 Lorri Larsen MD [address] [place] [address] Otolaryngology 07/21/21 Lorri Larsen MD [address] [place] [address] Assigned Surgical Provider 10/10/21 Rafita Ayers MD [address] [place] [address] Critical Care 11/30/21 Kaelyn Nwe, Shena [address] [place] [address] Youth Leader Audiology 12/09/21 Marino Hayes MD [address] [place] [address] Cardiovascular Disease 09/28/22 Marino Hayes MD [address] [place] [address] Assigned Heart and Vascular Provider 10/09/22 documented as of this encounter
--- OUTSIDE RECORDS SUMMARY | 2023-02-27 14:28 | XMS_ITS | Encounter Summary ---
Author Name Unknown Organization [facility] Address [address] [place] [address] Care Team Providers Care Data Analytics Specialist Name Role Phone Onesimo Bruno MD Primary Care Provider [phone] Bhavna Mac PharmD Unavailable [phone] Isaac Bro RN Unavailable Unavailable Onesimo Bruno MD Unavailable [phone] Nataliia Gomez MD Unavailable Rafita Ayers MD Unavailable Flo Henry MD Unavailable [phone] Jana iVck CHW Unavailable UnavailLorri Ulloa MD Unavailable [phone] Lorri Larsen MD Unavailable [phone] Rafita Ayers MD Unavailable [phone] Kaelyn New Unavailable [phone] Marino Hayes MD Unavailable [phone] Encounter Details Date Type Department Care Team (Late st Contact Info) Description 09/29/2022 9:00 AM CDT Virtual Visit [facility] [address] [place] [address] Keke Brooks, RD 420 [facility] [address] [place], [place] [address] CKD (chronic kidney disease) stage 3, GFR [...] PHQ-2 Answer Date Recorded PHQ-2 Score 2 06/22/2022 Sex and Gender Information Value Date Recorded Sex Assigned at Male 05/09/2020 12:49 AM CDT Gender Identity Male 05/09/2020 12:49 AM CDT Sexual Orientation Garcia 09/17/2020 11 :45 PM CDT COVID-19 Exposure Response Date Recorded In the last 10 days, have yo u been in contact with someone who was confirmed or suspected to have Coronavirus/COVID-19? No / Unsure 09/23/2022 9:07 AM CDT documented as of this encounter Progress Notes * Keke Brooks, RD - 09/29/2022 9:00 AM CDT Images from the original note were not included. Roger Luong is a 71 year old who is being evaluated via a billable video visit. How would you like to obtain your AVS? MyChart If the video visit is dropped, the invitation should be resent by: Send to e- mail at: [email or web address] Will anyone else be joining your video visit? No Medical Weight Loss Follow-Up Diet Evaluation Assessment: Roger is presenting today for a follow up weight management nutrition consultation. This patient has had an initial appointment and was referred by Dr. Day for MNT as treatment for Obesity which is impacting his CKD, CAD. Weight loss medication: Ozempic-unable to get it covered through insurance . Pt's weight is 302 lbs Weight change: down 8 lbs since May No data to display BMI: There is no height or weight on file to calculate BMI. [place] body weight: 77.6 kg (171 lb 1.2 oz) Adjusted ideal body weight: 101.9 kg (224 lb 10.3 oz) Estimated RMR ([place]-St Jeor equation): 2178 kcals x 1.3 (light active) = 2831 kcals (for weight maintenance) Recommended Protein Intake: 60-80 grams of protein/day Patient Active Problem List: Patient Active Problem List Diagnosis Skin Lesion Benign Pigmented Nevus Hemangioma Of The Skin Actinic keratosis Sebaceous Hyperplasia Traumatic brain injury with loss of consciousness, sequela (H) Hypercholesterolemia IDA (obstructive sleep apnea) Benign Essential Hypertension Coronary Artery Disease Allergic rhinitis Wheezing (Symptom) Thrombophlebitis Of Superficial Vessels Of The Lower Extremity Edema Bilateral pulmonary embolism (H) Pulmonary emboli (H) Atherosclerosis of [place] coronary artery of [place] heart without angina pectoris Avitaminosis D Metabolic syndrome Prediabetes CKD (chronic kidney disease) stage 3, GFR 30-59 ml/min (H) Urinary retention Morbid obesity (H) History of traumatic head injury Impairment of balance 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 Patient reports that they have been incorporating more vegetables lately into the diet such as steamed green beans or a veggie slaw. Patient reports that they have been discussing even trying [employer] again. Patient reports that he is struggling with eating in the middle of the night more frequently (noting it tends to lead into a graze), tends to be something sweet (peach cobbler for example). Nutrition Diagnosis: Obesity (NC 3.3) related to overeating and poor lifestyle habits as evidenced by patient's subjective statements and BMI 41 kg/m2. Intervention: Food and/or nutrient delivery: balanced meals, adequate protein Nutrition education: lean protein sources Nutrition counseling: provided support and encouragement Monitoring/Evaluation: Goals: Work on eliminating overnight eating. Work on adequate protein throughout the day, aiming for 20-30 grams of protein/meal, 3 meals/day. Patient to follow up in 1 month(s) with RD Video-Visit Details Type of service: Video Visit Video Start Time (time video started): 8:43 am Video End Time (time video stopped): 9:26 am Originating Location (pt. Location): Home Distant Location (provider location): Off-site Mode of Communication: Video Conference via [facility] Physician has received verbal consent for a Video Visit from the patient? Yes Keke Brooks RD documented in this encounter Plan of Treatment Upcoming Encounters Date Type Department Care Team (Late st Contact Info) Description 04/04/2023 1:00 PM WAREHOUSE CLERK Virtual Visit [facility] [address] [place] [phone] [facility] [address] [place], [place] [address] documented as of this encounter Goals Goal [...] into working with a personal lines sales executive to assist me with resistance training. 5. I will report progress towards this goal at outreach telephone calls from the [facility] team Discussed 12/28/22 documented as [...] Time PHQ-9 Depression Total Score: 8 04/16/19 23 9:42 AM WAREHOUSE CLERK documented as of this encounter Care Teams Data Analytics Specialist Relationship Specialty Start Date End Date Onesimo Bruno MD PCP - General 08/11/06 Bhavna Mac, GenesisD [address] [place] [address] Pharmacist Pharmacist 07/11/18 Isaac Bro, RN Lead Repair Manager Primary Care - CC 09/01/18 Onesimo Bruno MD [address] [place] [address] Assigned PCP 07/30/20 Nataliia Gomez MD [address] [facility], [address] [place], [place] [id number] Assigned Heart and Vascular Provider 08/29/20 10/08/22 Rafita Ayers MD [address] [place] [address] [id number] Assigned Pulmonology Provider 10/12/20 Flo Henry MD [address] [place] [address] [id number] Assigned Behavioral Health Provider 09/21/20 Jana Vick W Community Health Worker Primary Care - CC 06/08/21 Lorri Larsen MD [address] [place] [address] Otolaryngology 07/21/21 Lorri Larsen MD [address] [place] [address] Assigned Surgical Provider 10/10/21 Rafita Ayers MD [address] [place] [address] Critical Care 11/30/21 Kaelyn New, [place] [address] [place] [address] Chip Separator Audiology 12/09/21 Marino Hayes MD [address] [place] [address] Cardiovascular Disease 09/28/22 documented as of this encounter
--- OUTSIDE RECORDS SUMMARY | 2023-02-27 14:28 | XMS_ITS | Encounter Summary ---
Author Name Unknown Organization [facility] Address [address] [place] [address] Care Team Providers Care System Archive Analyst Name Role Phone Onesimo Bruno MD Primary Care Provider [phone] Bhavna Mac PharmD Unavailable [phone] Isaac Bro RN Unavailable Unavailable Onesimo Bruno MD Unavailable [phone] Rafita Ayers MD Unavailable [phone] Flo Henry MD Unavailable [phone] Jana Vick CHW Unavailable UnavailLorri Ulloa MD Unavailable [phone] Lorri Larsen MD Unavailable [phone] Rafita Ayers MD Unavailable [phone] Kaelyn New Unavailable [phone] Marino Hayes MD Unavailable [phone] Marino Hayes MD Unavailable [phone] Encounter Details Date Type Department Care Team (Late st Contact Info) Description 11/03/2022 9:30 AM CDT Virtual Visit [facility] [address] [place] [address] Keke Brooks, RD 420 [facility] 84 [place], [place] [phone] CKD (chronic kidney disease) stage 3, GFR [...] suspected to have Coronavirus/COVID-19? No / Unsure 10/05/2022 11:49 AM CDT documented as of this encounter Progress Notes * Keke Brooks, RD - 11/03/2022 9:30 AM CDT Images from the original note were not included. Roger Luong is a 71 year old who is being evaluated via a billable video visit. How would you like to obtain your AVS? MyChart If the video visit is dropped, the invitation should be resent by: Send to e- mail at: [email or web address] Will anyone else be joining your video visit? No Medical Weight Loss Follow-Up Diet Evaluation Assessment: Roger is presenting today for a follow up weight management nutrition consultation. This patient has had an initial appointment and was referred by Dr. Day for MNT as treatment for Obesity which is impacting his CKD, CAD. Weight loss medication: None . Pt's weight is 300 lbs No data to display BMI: There is no height or weight on file to calculate BMI. 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 Patient reports that he has been working on prepping ahead in regards to healthy snacks, either unsalted cashews or almonds (limiting to a snack size bag). While traveling, has been packing food ahead of time in a cooler to stay on track in regards to healthy eating practices (such assandwiches-turkey and cheese, apples). Has been working on consistency of getting protein in at meal times, noting that breakfast and supper are much improved, however trying to get better at lunch. Patient reports that they have a lot of fresh vegetables, noting that they will probably freeze and can some of them to preserve them and enjoy later. Exercise: Obtained Gym Membership at [employer]-appointment with a personal coach when he gets back from his trip, hoping to do some walking with the cooler weather Nutrition Diagnosis: Obesity (NC 3.3) related to overeating and poor lifestyle habits as evidenced by patient's subjective statements and BMI 41.23 kg/m2. Intervention: Food and/or nutrient delivery: balanced meals, adequate protein Nutrition education: none Nutrition counseling: provided support and encouragement Monitoring/Evaluation: Goals: Continue to work on being consistent with consuming protein at each meal, aiming for 20-30 grams ofprotein/meal, 3 meals/day. Continue to work on elimination of overnight eating. Patient to follow up in 1 month(s) with [facility] Video-Visit Details Type of service: Video Visit Video Start Time (time video started): 9:24 am Video End Time (time video stopped): 10:06 am Originating Location (pt. Location): Home Distant Location (provider location): Off-site Mode of Communication: Video Conference via [facility] Physician has received verbal consent for a Video Visit from the patient? Yes Keke Brooks RD documented in this encounter Plan of Treatment Upcoming Encounters Date Type Department Care Team (Late st Contact Info) Description 04/04/2023 1:00 PM EMPLOYMENT COACH Virtual Visit [facility] [address] [place] [address] 420 [facility] [address] [place], [place] [phone] documented as of this encounter Goals Goal [...] will look into working with a personal coach to assist me with resistance training. 5. I will report progress towards this goal at outreach telephone calls from the [facility] team Discussed 12/28/22 documented as [...] Total Score: 8 04/16/19 23 9:42 AM EMPLOYMENT COACH documented as of this encounter Care Teams System Archive Analyst Relationship Specialty Start Date End Date Onesimo Bruno MD PCP - General 08/11/06 Bhavna Mac, Genesis[employer] [address] [place] [address] Pharmacist Pharmacist 07/11/18 Isaac Bro, RN Lead Research Leader Primary Care - CC 09/01/18 Onesimo Bruno MD [address] [place] [address] Assigned PCP 07/30/20 Rafita Ayers MD [address] [place] [address] [phone] Assigned Pulmonology Provider 10/12/20 Flo Henry MD [address] [place] [address] Assigned Behavioral Health Provider 09/21/20 Jana Vick W Community Health Worker Primary Care - CC 06/08/21 Lorri Larsen MD [address] [place] [address] [phone] Otolaryngology 07/21/21 Lorri Larsen MD [address] [place] [address] [phone] Assigned Surgical Provider 10/10/21 Rafita Ayers MD [address] [place] [address] Critical Care 11/30/21 Kaelyn New AuD [address] [place] [address] [address] Driver Audiology 12/09/21 Marino Hayes MD [address] [place] [address] [phone] Cardiovascular Disease 09/28/22 Marino Hayes MD [address] [place] [address] Assigned Heart and Vascular Provider 10/09/22 documented as of this encounter
--- OUTSIDE RECORDS SUMMARY | 2023-02-27 14:28 | XMS_ITS | Encounter Summary ---
Author Name Unknown Organization [facility] Address [address] [place] [address] Care Team Providers Care Cutting Supervisor Name Role Phone Onesimo Bruno MD Primary Care Provider Bhavna Mac PharmD Unavailable [phone] Isaac Bro RN Unavailable Unavailable Onesimo Bruno MD Unavailable [phone] Nataliia Gomez MD Unavailable Rafita Ayers MD Unavailable [phone] Flo Henry MD Unavailable [phone] Jana Vick W Unavailable UnavailLorri Ulloa MD Unavailable [phone] Lorri Larsen MD Unavailable [phone] Rafita Ayers MD Unavailable [phone] Kaelyn New Unavailable [phone] Reason for Visit * Diagnostic Imaging NM (Routine) - Authorized Specialty Diagnoses / Procedures Referred By Contac t Referred To Contact Cardiology Diagnoses NAVAS (dyspnea on exertion) Procedures NM Lexiscan stress test Onesimo Bruno MD [address] [place] [address] Sjn Cardiac Testing [address] [place] [id number] Referral ID Status Reason Start Date Expiration Date V isits Requested Visits Authorized [id number] Authorized 09/16/2022 09/16/2023 5 5 Encounter Details Date Type Department Care Team (Late st Contact Info) Description 09/23/2022 9:11 AM CDT - 09/23/2022 11:59 PM CDT Hospital Encounter [facility] [address] [place] [phone] Onesimo Bruno MD [address] [place] [phone] Discharge Disposition: Home or Self Care Social History Tobacco Use Types Packs/Day Years [...] AM CDT documented as of this encounter Medications at Time of Discharge Medication Sig Dispensed Refills Start Date End Date albuterol (PROAIR HFA/PROVENTIL HFA/VENTOLIN HFA) 108 (90 Base) MCG/ACT inhalerIndications:Mil d persistent asthma without complication [ALBUTEROL (VENTOLIN HFA) 90 MCG/ACTUATION INHALER] 2 puffs every 6 hours as needed. Strength: 108 (90 Base) MCG/ACT 18 g 2 02/03/2022 alcohol swab prep padsIndications:Predia betes Use to swab area of injection/neisha as directed daily. 100 each 3 04/16/2022 clindamycin (CLEOCIN T) 1 % external lotion APPLY TOPICALLY TO THE AFFECTED AREA TWICE DAILY. MIX WITH KETOCONAZOLE CREAM 0 07/20/2021 cyclobenzaprine (FLEXERIL) 5 MG tabletIndications:Lumb ar radiculitis,Myofascial pain Take 1 tablet every 6 hours as needed for pain/spasms. 45 tablet 1 01/19/2021 ezetimibe (ZETIA) 10 MG tabletIndications:CAD (coronary artery disease),Dyslipidemia TAKE 1 TABLET BY MOUTH AT BEDTIME 90 tablet 3 04/30/2022 fluocinonide (LIDEX) 0.05 % external solution APPLY TOPICALLY TO THE SCALP TWICE DAILY NEEDED 0 07/20/2021 fluticasone propionate (FLONASE) 50 mcg/actuation nasal sprayIndications:IDA (obstructive sleep apnea),Non-seasonal allergic rhinitis due to other allergic trigger [FLUTICASONE PROPIONATE (FLONASE) 50 MCG/ACTUATION NASAL SPRAY] INSTILL 2 SPRAYS INTO EACH NOSTRIL DAILY 48 g 3 10/18/2018 ipratropium - albuterol 0.5 mg/2.5 mg/3 mL (DUONEB) 0.5-2.5 (3) MG/3ML neb solutionIndications:Mi ld persistent asthma with exacerbation Take 1 vial (3 mLs) by nebulization every 4 hours as needed for shortness of breath or wheezing 3 mL 3 02/03/2022 ketoconazole (NIZORAL) 2 % external cream Apply topically as needed 0 07/20/2021 ketoconazole (NIZORAL) 2 % external shampoo APPLY TOPICALLY TO SCALP 3 TIMES WEEKLY NEEDED AND RINSE WELL 0 07/20/2021 nitroglycerin (NITROSTAT) 0.4 MG SL tabletIndications:Athe rosclerosis of [place] coronary artery of [place] heart without angina pectoris [NITROGLYCERIN (NITROSTAT) 0.4 MG SL TABLET] PLACE 1 TABLET UNDER DONALDO TONGUE EVERY 5 MINUTES NEEDED FOR CHEST PAIN. 25 tablet 5 06/09/2020 Standish-3 Fatty Acids (FISH OIL OMEGA-3 PO) Take 1 capsule by mouth daily 1200 mg bid 0 peg 400-propylene glycol (SYSTANE) 0.4-0.3 % Drop [PEG 400-PROPYLENE GLYCOL (SYSTANE) 0.4-0.3 % DROP] Administer 1 drop to both eyes 4 (four) times a day as needed. 0 07/18/2018 rivaroxaban ANTICOAGULANT (XARELTO ANTICOAGULANT) 20 MG TABS tabletIndications:Bila teral pulmonary embolism (H) Take 1 tablet (20 mg) by mouth daily 90 tablet 3 05/18/2022 tamsulosin (FLOMAX) 0.4 MG capsuleIndications:Uri nary retention TAKE 1 CAPSULE BY MOUTH DAILY AFTER SUPPER 90 capsule 3 09/16/2022 armodafinil (NUVIGIL) 250 mg tablet [ARMODAFINIL (NUVIGIL) 250 MG TABLET] Take 250 mg by mouth daily. 0 07/18/2018 10/21/2022 ASPIRIN NOT PRESCRIBED (INTENTIONAL) Please choose reason not prescribed from choices below. 0 10/21/2022 blood glucose (NO BRAND SPECIFIED) test stripIndications:Predi abetes Use to test blood sugar 1-2 times daily or as directed. To accompany: Blood Glucose Monitor Brands: per insurance. 100 strip 6 04/15/2022 12/16/2022 blood glucose calibration (NO BRAND SPECIFIED) solutionIndications:Pr ediabetes To accompany: Blood Glucose Monitor Brands: per insurance. 1 each 0 04/15/2022 12/16/2022 blood glucose monitoring (NO BRAND SPECIFIED) meter device kitIndications:Prediab etes Use to test blood sugar 1-2 times daily or as directed. Preferred blood glucose meter OR supplies to accompany: Blood Glucose Monitor Brands: per insurance. 1 kit 0 04/15/2022 12/16/2022 buPROPion (WELLBUTRIN SR) 100 MG 12 hr tabletIndications:Neur ocognitive disorder TAKE 1 TABLET BY MOUTH DAILY 30 tablet 11 09/07/2022 10/21/2022 cholecalciferol 50 MCG (2000 UT) tablet Take 1 capsule by mouth daily 0 01/16/2018 12/08/2022 divalproex sodium delayed-release (DEPAKOTE) [address] tabletIndications:Neur ocognitive disorder # # # Dispense BRAND ONLY : Depakote. No generic drug substitution # # # 60 tablet 3 09/18/2020 10/21/2022 Fluticasone-Umeclidin- Vilant (TRELEGY ELLIPTA) 100-62.5-25 MCG/ACT oral inhalerIndications:Mod erate persistent asthma with acute exacerbation Inhale 1 puff into the lungs daily 60 each 11 03/10/2022 02/15/2023 furosemide (LASIX) 20 MG tabletIndications:Elev ated brain natriuretic peptide (BNP) level TAKE ONE-HALF TABLET BY MOUTH DAILY 45 tablet 2 06/01/2022 01/10/2023 lisinopril (ZESTRIL) 5 MG tabletIndications:Esse ntial hypertension, benign Take 1 tablet (5 mg) by mouth daily 90 tablet 3 11/30/2021 02/15/2023 Melatonin-Pyridoxine (MELATONEX PO) Take 3-6 mg by mouth nightly as needed 0 10/21/2022 metoprolol succinate ER (TOPROL XL) 50 MG 24 hr tabletIndications:Athe rosclerosis of [place] coronary artery of [place] heart without angina pectoris Take 1 tablet (50 mg) by mouth daily 90 tablet 30 11/30/2021 01/20/2023 nebulizers Misc [NEBULIZERS MISC] Please dispense one machine and associated necessary equipment for asthma 1 each 0 11/16/2016 12/16/2022 pen needle, diabetic (BD ULTRA-FINE MARGARITA PEN NEEDLE) 32 gauge x 5/32 NdleIndications:Predia betes,Metabolic syndrome [PEN NEEDLE, DIABETIC (BD ULTRA-FINE MARGARITA PEN NEEDLE) 32 GAUGE X 5/32 NDLE] Use once daily as directed 30 each 1 08/09/2018 12/16/2022 rosuvastatin (CRESTOR) 40 MG tabletIndications:Athe rosclerosis of [place] coronary artery of [place] heart without angina pectoris [ROSUVASTATIN (CRESTOR) 40 MG TABLET] TAKE 1 TABLET BY MOUTH DAILY 90 tablet 3 03/23/2022 02/17/2023 thin (NO BRAND SPECIFIED) lancetsIndications:Pre diabetes Use with lanceting device. To accompany: Blood Glucose Monitor Brands: per insurance. 100 each 6 04/15/2022 12/16/2022 venlafaxine (EFFEXOR XR) 150 MG 24 hr capsuleIndications:Hermelindo rocognitive disorder Take 1 tablets (75 mg) by mouth daily, take in addition to the 150 mg pill. 60 capsule 3 06/22/2022 10/21/2022 venlafaxine (EFFEXOR) 75 MG tabletIndications:Neur ocognitive disorder Take 0.5 tablets (37.5 mg) by mouth daily Take in addition with the 150 mg dose for a total daily dose of 225 mg. 30 tablet 4 06/22/2022 10/05/2022 documented as of this encounter Plan of Treatment Upcoming Encounters Date Type Department Care Team (Late st Contact Info) Description 04/04/2023 1:00 PM LEAD DRIVER Virtual Visit [facility] Care [address] [place] [address] Keke Brooks, RD [address] [facility] [address] [place] [address] documented as of this encounter Goals Goal [...] into working with a personal lines account executive to assist me with resistance training. 5. I will report progress towards this goal at outreach telephone calls from the [facility] team Discussed 12/28/22 documented as of this encounter Procedures Procedure Name Priority Date/Time Associated Diagnosis Comments NM MPI WITH LEXISCAN STAT 09/23/2022 10:27 AM CDT NAVAS (dyspnea on exertion) documented in this encounter Results * NM Lexiscan stress test (09/23/2022 10:27 AM CDT) Pharmacologic Protocol Lexiscan CARDIOLOGY RESULTS Test Type Pharmacological CARD IOLOGY RESULTS Baseline HR 76 CARDIOLO GY RESULTS Baseline Systolic BP 124 CARDIOLOGY RESULTS Baseline Diastolic BP 81 CARDIOLOGY RESULTS Last Stress HR 90 CARDI OLOGY RESULTS Last Stress Systolic BP 112 CARDIOLOGY RESULTS Last Stress Diastolic BP 80 CARDIOLOGY RESULTS Target HR 151 CARDIOLOGY RESULTS PERCENT HR 85% CARDIOLOG Y RESULTS ST Deviation Elevation aVF 0.2mm CARDIOLOGY RESULTS Deviation Time aVL -0.2mm CARD IOLOGY RESULTS ST Elevation Amount II 0.6mm CARDIOLOGY RESULTS ST Deviation Amount he aVR -0.6mm CARDIOLOGY RESULTS Final Resting BP 124/79 CAR DIOLOGY RESULTS Final Resting HR 84 CAR DIOLOGY RESULTS Max Treadmill Speed 0.0 CARDIOLOGY RESULTS Max Treadmill Grade 0.0 CARDIOLOGY RESULTS Peak Systolic BP 124/79 CAR DIOLOGY RESULTS Peak Diastolic BP 112/80 CARDIOLOGY RESULTS Max HR 93 CARDIOLOGY RESULTS Stress Phase Resting CARDIOL OGY RESULTS Stress Resting Pt Position MANUAL EVENT CARDIOLOGY RESULTS Current HR 77 CARDIOLOG Y RESULTS Current BP 124/81 CARDIOLOG Y RESULTS Stress Phase Stress CARDIOL OGY RESULTS Stage Minute EXE 00:00 CARDIOL OGY RESULTS Exercise Stage STAGE 2 CARDI OLOGY RESULTS Current HR 74 CARDIOLOG Y RESULTS Current BP 124/81 CARDIOLOG Y RESULTS Stress Phase Stress CARDIOL OGY RESULTS Stage Minute EXE 01:00 CARDIOL OGY RESULTS Exercise Stage STAGE 3 CARDI OLOGY RESULTS Current HR 79 CARDIOLOG Y RESULTS Current BP 124/81 CARDIOLOG Y RESULTS Stress Phase Stress CARDIOL OGY RESULTS Stage Minute EXE 02:00 CARDIOL OGY RESULTS Exercise Stage STAGE 4 CARDI OLOGY RESULTS Current HR 91 CARDIOLOG Y RESULTS Current BP 124/81 CARDIOLOG Y RESULTS Stress Phase Stress CARDIOL OGY RESULTS Stage Minute EXE 03:00 CARDIOL OGY RESULTS Exercise Stage STAGE 5 CARDI OLOGY RESULTS Current HR 92 CARDIOLOG Y RESULTS Current BP 124/81 CARDIOLOG Y RESULTS Stress Phase Stress CARDIOL OGY RESULTS Stage Minute EXE 03:12 CARDIOL OGY RESULTS Exercise Stage STAGE 5 CARDI OLOGY RESULTS Current HR 92 CARDIOLOG Y RESULTS Current BP 112/80 CARDIOLOG Y RESULTS Stress Phase Stress CARDIOL OGY RESULTS Stage Minute EXE 04:00 CARDIOL OGY RESULTS Exercise Stage STAGE 6 CARDI OLOGY RESULTS Current HR 91 CARDIOLOG Y RESULTS Current BP 112/80 CARDIOLOG Y RESULTS Stress Phase Stress CARDIOL OGY RESULTS Stage Minute EXE 04:05 CARDIOL OGY RESULTS Exercise Stage STAGE 6 CARDI OLOGY RESULTS Current HR 90 CARDIOLOG Y RESULTS Current BP 112/80 CARDIOLOG Y RESULTS Stress Phase Recovery CARDIOL OGY RESULTS Stage Minute REC 00:32 CARDIOL OGY RESULTS Exercise Stage Recovery CARDI OLOGY RESULTS Current HR 88 CARDIOLOG Y RESULTS Current BP 120/76 CARDIOLOG Y RESULTS Stress Phase Recovery CARDIOL OGY RESULTS Stage Minute REC 00:54 CARDIOL OGY RESULTS Exercise Stage Recovery CARDI OLOGY RESULTS Current HR 87 CARDIOLOG Y RESULTS Current BP 120/76 CARDIOLOG Y RESULTS Stress Phase Recovery CARDIOL OGY RESULTS Stage Minute REC 01:54 CARDIOL OGY RESULTS Exercise Stage Recovery CARDI OLOGY RESULTS Current HR 84 CARDIOLOG Y RESULTS Current BP 120/76 CARDIOLOG Y RESULTS Stress Phase Recovery CARDIOL OGY RESULTS Stage Minute REC 01:55 CARDIOL OGY RESULTS Exercise Stage Recovery CARDI OLOGY RESULTS Current HR 84 CARDIOLOG Y RESULTS Current BP 121/76 CARDIOLOG Y RESULTS Stress Phase Recovery CARDIOL OGY RESULTS Stage Minute REC 02:54 CARDIOL OGY RESULTS Exercise Stage Recovery CARDI OLOGY RESULTS Current HR 82 CARDIOLOG Y RESULTS Current BP 121/76 CARDIOLOG Y RESULTS Stress Phase Recovery CARDIOL OGY RESULTS Stage Minute REC 03:34 CARDIOL OGY RESULTS Exercise Stage Recovery CARDI OLOGY RESULTS Current HR 81 CARDIOLOG Y RESULTS Current BP 124/79 CARDIOLOG Y RESULTS Stress Phase Recovery CARDIOL OGY RESULTS Stage Minute REC 03:54 CARDIOL OGY RESULTS Exercise Stage Recovery CARDI OLOGY RESULTS Current HR 82 CARDIOLOG Y RESULTS Current BP 124/79 CARDIOLOG Y RESULTS Stress Phase Recovery CARDIOL OGY RESULTS Stage Minute REC 04:03 CARDIOL OGY RESULTS Exercise Stage Recovery CARDI OLOGY RESULTS Current HR 84 CARDIOLOG Y RESULTS Current BP 124/79 CARDIOLOG Y RESULTS Max Predicted HR 62 % CAR DIOLOGY RESULTS Rate Pressure Product 10,416.0 CARDIOLOGY RESULTS Left Ventricular EF 70 % CARDIOLOGY RESULTS Anatomical Region Laterality Modality Chest Nuclear Medicine , Other, Other 09/22/2022 9:10 AM CDT Narrative 09/23/2022 1:31 PM CDT ?A prior study was conducted on 06/07/2014. ??This study has no change when compared with the prior study. ?Pharmacological regadenoson stress ECG is negative for inducible myocardial ischemia. ?Pharmacological regadenoson nuclear stress test is negative for inducible myocardial ischemia or infarction. ?Normal left ventricular size, wall motion and systolic function. ??The calculated left ventricular ejection fraction is 70%. ?The patient is at a low risk of future cardiac ischemic events. Stress Findings A pharmacologic stress test was performed following a sitting Lexiscan protocol using 0.4 mg of intravenous regadenoson administered over 15 seconds under the supervision of Dr. Gracia. The supervising registered nurse observed typical vasodilator side effects during the stress test. ECG Baseline electrocardiogram demonstrates sinus rhythm. The stress electrocardiogram is negative for inducible ischemic EKG changes. Arrhythmias during stress: Occasional PVCs. Arrhythmias during recovery: Occasional PVCs. Isotope Administration Nuclear imaging was accomplished using a two day high dose protocol with 46.1 mCi of technetium sestamibi injected at the completion of Lexiscan infusion on 09/22/2022 and 46.4 mCi of technetium sestamibi at rest on 09/23/2022. Nuclear Study Quality Final image quality is satisfactory. Perfusion Defect The nuclear stress test is negative for inducible myocardial ischemia or infarction. The patient is at a low risk of future cardiac ischemic events. The left ventricular ejection fraction at stress is 70%. Left ventricular function is normal. Nuclear Prior Study A prior study was conducted on 06/07/2014. This study has no change when compared with the prior study. Perfusion Scoring Stress Summed Score: 0 Percent Normal: 0.00% The left ventricular perfusion is normal. Perfusion Scoring Resting Summed Score: 0 Percent Normal: 0.00% The left ventricular perfusion is normal. Perfusion Scores: SRS Score: 0 Percentage Abnormal: 0.00% Perfusion Scores: SSS Score: 0 Percentage Abnormal: 0.00% Perfusion Scores: SDS Score: 0 Percentage Abnormal: 0.00% Wall Motion Score Index: 1.00 The left ventricular wall motion is normal. Onesimo Bruno MD [facility] [place] ORDERABLES documented in this encounter Visit Diagnoses Not on filedocumented in this encounter Additional Health Concerns Problem Noted Date Diagnosed Date HP GENERAL PROBLEM 11/13/2021 Assessment Noted Time PHQ-9 Depression Total Score: 8 04/16/19 23 9:42 AM LEAD DRIVER documented as of this encounter Care Teams Cutting Supervisor Relationship Specialty Start Date End Date Onesimo Bruno MD PCP - General 08/11/06 Bhavna Mac, Elio [address] [place] [address] Pharmacist Pharmacist 07/11/18 Isaac Bro, RN Lead Resource Conservation Manager Primary Care - CC 09/01/18 Onesimo Bruno MD [address] [place] [address] Assigned PCP 07/30/20 Nataliia Gomez MD [address] [place] [address], [address] [place] [address] Assigned Heart and Vascular Provider 08/29/20 10/08/22 Rafita Ayers MD [address] [place] [address] Assigned Pulmonology Provider 10/12/20 Flo Henry MD [address] [place] [address] Assigned Behavioral Health Provider 09/21/20 Jana Vick W Community Health Worker Primary Care - CC 06/08/21 Lorri Larsen MD [address] [place] [address] Otolaryngology 07/21/21 Lorri Larsen MD [address] [place] [address] Assigned Surgical Provider 10/10/21 Rafita Ayers MD [address] [place] [address] Critical Care 11/30/21 Kaelyn New, AuD [address] [place] [address] Automobile Bumper Straightener Audiology 12/09/21 documented as of this encounter
--- OUTSIDE RECORDS SUMMARY | 2023-02-27 14:28 | XMS_ITS | Encounter Summary ---
Author Name Unknown Organization [facility] Address [address] [place] [address] Care Team Providers Care Dental Receptionist Name Role Phone Onesimo Bruno MD Primary Care Provider [phone] Bhavna Mac PharmD Unavailable [phone] Isaac Bro RN Unavailable Unavailable Onesimo Bruno MD Unavailable [phone] Nataliia Gomez MD Unavailable Rafita Ayers MD Unavailable [phone] Flo Henry MD Unavailable [phone] Jana Vick CHW Unavailable UnavailLorri Ulloa MD Unavailable [phone] Lorri Larsen MD Unavailable [phone] Rafita Ayers MD Unavailable [phone] Kaelyn New Unavailable [phone] Marino Hayes MD Unavailable [phone] Marino Hayes MD Unavailable [phone] Encounter Details Date Type Department Care Team (Late st Contact Info) Description 09/29/2022 Mgaan Martinez [facility] and Bariatrics Care [address] [address] Vane Castro Social History Tobacco Use Types Packs/Day Years [...] AM CDT documented as of this encounter Plan of Treatment Upcoming Encounters Date Type Department Care Team (Late st Contact Info) Description 04/04/2023 1:00 PM LABORATORY CHIEF Virtual Visit [facility] Bariatrics Care [address] [place] [address] Keke Brooks, RD [address] [facility] [address] [place] [address] documented as of this encounter Goals Goal [...] I will look into working with a representative personal service to assist me with resistance training. 5. I will report progress towards this goal at outreach telephone calls from the [facility] team Discussed 12/28/22 documented as of this encounter Visit Diagnoses Not on filedocumented in this encounter Additional Health Concerns Problem Noted Date Diagnosed Date HP GENERAL PROBLEM 11/13/2021 Assessment Noted Time PHQ-9 Depression Total Score: 8 04/16/19 23 9:42 AM LABORATORY CHIEF documented as of this encounter Care Teams Dental Receptionist Relationship Specialty Start Date End Date Onesimo Bruno MD PCP - General 08/11/06 Bhavna Mac, Elio [address] [place] [address] Pharmacist Pharmacist 07/11/18 Isaac Bro, RN Lead Car Seat Upholsterer Primary Care - CC 09/01/18 Onesimo Bruno MD [address] [place] [address] Assigned PCP 07/30/20 Nataliia Gomez MD [address] [place] [address], [address] [place] [address] Assigned Heart and Vascular Provider 08/29/20 10/08/22 Rafita Ayers MD [address] [place] [address] Assigned Pulmonology Provider 10/12/20 lFo Henry MD [address] [place] [address] Assigned Behavioral Health Provider 09/21/20 Jana Vick, W Community Health Worker Primary Care - CC 06/08/21 Lorri Larsen MD [address] [place] [address] Otolaryngology 07/21/21 Lorri Larsen MD [address] [place] [address] Assigned Surgical Provider 10/10/21 Rafita Ayers MD [address] [place] [address] Critical Care 11/30/21 Kaelyn New, [place] [address] [place] [address] Boiler/Chiller Operator Audiology 12/09/21 Marino Hayes MD [address] [place] [address] Cardiovascular Disease 09/28/22 Marino Hayes MD [address] [place] [address] Assigned Heart and Vascular Provider 10/09/22 documented as of this encounter
--- OUTSIDE RECORDS SUMMARY | 2023-02-27 14:28 | XMS_ITS | Encounter Summary ---
Author Name Unknown Organization [facility] Address [address] [place] [address] Care Team Providers Care Java Security Architect Name Role Phone Onesimo Bruno MD Primary Care Provider [phone] Bhavna Mac PharmD Unavailable Isaac Bro RN Unavailable Unavailable Onesimo Bruno MD Unavailable [phone] Nataliia Gomez MD Unavailable Rafita Ayers MD Unavailable Flo Henry MD Unavailable [phone] Jana Vick W Unavailable UnavailLorri Ulloa MD Unavailable [phone] Lorri Larsen MD Unavailable [phone] Rafita Ayers MD Unavailable [phone] Kaelyn New Unavailable [phone] Reason for Referral * Occupational Therapy (Routine: Next available opening) - Referral NOT Required Specialty Diagnoses / Procedures Referred By Contac t Referred To Contact Occupational Therapy Diagnoses NAVAS (dyspnea on exertion) Morbid obesity (H) 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 [address] [place] [address] Referral ID Status Reason Start Date Expiration Date V isits Requested Visits Authorized Referral NOT Required 09/27/2022 09/27/2023 1 1 Question Answer Preferred Location: Other (external) - Use Comments Non-internal location selection reason: Other - use comments Scheduling Instructions: Please call to schedule your appointment Class External referral [5] Course of Action Evaluation and Treatment Adult or Pediatrics Adult Specialty Services: Low Vision Additional Information: and a drivers eval. Comments Please be aware that coverage of these services is subject to the terms and limitations of your health insurance plan. Call member services at your health plan with any benefit or coverage questions. Please call to schedule your appointment * Rehab Therapy Cardiac Therapy (Routine: Next available opening) - Referral NOT Required Specialty Diagnoses / Procedures Referred By Jason villalpando Referred To Contact Pulmonology Diagnoses NAVAS (dyspnea on exertion) Morbid obesity (H) Onesimo Bruno MD [address] [place] [address] [address] Referral ID Status Reason Start Date Expiration Date V isits Requested Visits Authorized Referral NOT Required 09/27/2022 09/27/2023 1 1 Question Answer Reason for Referral Asthma, Dyspnea on Exertion Preferred Location: Other (external) - Use Comments Non-internal location selection reason: Location Scheduling Instructions: Please call to schedule your appointment Class External referral [5] Additional Information: Oxygen to be applied as needed for desaturation < 88% at rest and with exertion (below 90% if diagnosis of pulmonary hypertension). Comments Please be aware that coverage of these services is subject to the terms and limitations of your health insurance plan. Call member services at your health plan with any benefit or coverage questions. Please call to schedule your appointment * Consultation (Routine: Next available opening) - Closed Specialty Diagnoses / Procedures Referred By Jason villalpando Referred To Contact Cardiology Diagnoses Symptomatic PVCs Onesimo Bruno MD [address] [place] [address] Referral ID Status Reason Start Date Expiration Date Visits Re quested Visits Authorized [id number] Closed 09/27/2022 09/27/2023 1 1 Question Answer Does the patient need to be seen within 24-48 hours? Yes Comments Please be aware that coverage of these services is subject to the terms and limitations of your health insurance plan. Call member services at your health plan with any benefit or coverage questions. Reason for Visit * Reason Comments Follow Up Nuclear stress test and Holter monitor discussion. 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 What phone number would you like to be contacted at? [phone] How would you like to obtain your AVS? MyChart Distant Location (provider location): On-site 1. Symptomatic PVCs Given that these PVCs seem pretty symptomatic we will have him meet with cardiology. - [facility] Mat Maker Referral; Future 2. NAVAS (dyspnea on exertion) Likely due to deconditioning. Refer back to rehab. - Pulmonary Rehab Referral; Future - Occupational Therapy Referral; Future 3. Morbid obesity (H) Ongoing efforts at weight loss urged. - Pulmonary Rehab Referral; Future - Occupational Therapy Referral; Future 4. Mild neurocognitive disorder due to traumatic brain injury (H) I think he benefit from some more structure in his life. I told him perhaps he should try to find apart-time job. - Occupational Therapy Referral; Future 5. Traumatic brain injury with loss of consciousness, sequela (H) As above. 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 - Occupational Therapy Referral; Future Subjective Roger is a 71 year old, presenting for the following health issues: Follow Up (Nuclear stress test and Holter monitor discussion.) and Recheck Medication 09/27/2022 4:54 PM Additional Questions Roomed by rachna rivera Accompanied by Cordell 09/27/2022 4:54 PM Patient Reported Additional Medications Patient reports taking the following new medications no History of Present Illness Asthma: He presents for follow up of asthma. He has no cough, some wheezing, and some shortness of breath. He is using a relief medication 2-3 times per day. He does not miss any doses of his controller medication throughout the week. Patient is aware of the following triggers: exercise or sports, gastric reflux, humidity, mold, pollens and smoke. The patient has not had a visit to the Emergency Room, Urgent Care or Hospital due to asthma since the last clinic visit. He eats 2-3 servings of fruits and vegetables daily.He consumes 0 sweetened beverage(s) daily.He exercises with enough effort to increase his heart rate 10 to 19 minutes per day. He exercises with enough effort to increase his heart rate 6 days per week. He is taking medications regularly. Roger comes in today via video for follow-up. He was having a lot of dyspnea on exertion. Underwent stress testing which was negative for ischemia but he had Holter which showed considerable PVCs which were symptomatic. He is very inactive and mainly just sits and looks at the Internet all day long. is concerned about this. He is also concerned about his driving ability. He needs some low vision therapy and tools to help him be able to read and do some of the things he wants to do. Review of Systems Objective Vitals: No vitals were obtained today due to virtual visit. Physical Exam Pleasant gentleman. He has some word finding difficulties and some slowing of his cognition at times. Start of call was 5:27 PM. End of call was 5:55 PM. documented in this encounter Plan of Treatment Upcoming Encounters Date Type Department Care Team (Late st Contact Info) Description 04/04/2023 1:00 PM URBAN SOCIOLOGIST Virtual Visit [facility] [address] [place] [address] Keke Brooks, RD [address] [facility] [address] [place] [address] Scheduled Referrals Name Type Priority Associated Diagnoses Orde r Schedule [facility] Mat Maker Referral Referral Routine: Next available opening Symptomatic PVCs Expected: 09/27/2022 (Approximate), Expires: 09/28/2023 Pulmonary Rehab Referral Referral Routine: Next available opening NAVAS (dyspnea on exertion) Morbid obesity (H) Expected: 09/27/2022 (Approximate), Expires: 09/28/2023 Occupational Therapy Referral Referral Routine: Next available opening NAVAS (dyspnea on exertion) Morbid obesity (H) 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 5. 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, sequela (H24) documented in this encounter Additional Health Concerns Problem Noted Date Diagnosed Date HP GENERAL PROBLEM 11/13/2021 Assessment Noted Time PHQ-9 Depression Total Score: 8 04/16/19 23 9:42 AM URBAN SOCIOLOGIST documented as of this encounter Care Teams Java Security Architect Relationship Specialty Start Date End Date Onesimo Bruno MD PCP - General 08/11/06 Bhavna Mac, [employer] [address] [place] [address] Pharmacist Pharmacist 07/11/18 Isaac Bro, RN Lead Machine Fitter Primary Care - CC 09/01/18 Onesimo Bruno MD [address] [place] [address] Assigned PCP 07/30/20 Nataliia Gomez MD [address] [facility], [address] [place] [address] Assigned Heart and Vascular Provider 08/29/20 10/08/22 Rafita Ayers MD [address] [place] [address] Assigned Pulmonology Provider 10/12/20 Flo Henry MD [address] [address] Assigned Behavioral Health Provider 09/21/20 Jana Vick W Community Health Worker Primary Care - CC 06/08/21 Lorri Larsen MD [address] [place] [address] Otolaryngology 07/21/21 Lorri Larsen MD [address] [place] [address] Assigned Surgical Provider 10/10/21 Rafita Ayers MD [address] [place] [address] Critical Care 11/30/21 Kaelyn New, [place] [address] [place] [address] Pipe Coverer Helper Audiology 12/09/21 documented as of this encounter
--- OUTSIDE RECORDS SUMMARY | 2023-02-27 14:28 | XMS_ITS | Encounter Summary ---
Author Name Unknown Organization [facility] Address [address] [place] [address] Care Team Providers Care Profile Grinder Technician Name Role Phone Onesimo Bruno MD Primary Care Provider [phone] Bhavna Mac PharmD Unavailable [phone] Isaac Bro RN Unavailable Unavailable Onesimo Bruno MD Unavailable [phone] Nataliia Gomez MD Unavailable Rafita Ayers MD Unavailable [phone] Flo Henry MD Unavailable [phone] Jana Vick CHW Unavailable UnavailLorri Ulloa MD Unavailable [phone] Lorri Larsen MD Unavailable [phone] Rafita Ayers MD Unavailable [phone] Kaelyn New Unavailable [phone] Marino Hayes MD Unavailable [phone] Reason for Visit * Reason Comments Consult New Pt for PVC's * Consultation (Routine: Next available opening) - Closed Specialty Diagnoses / Procedures Referred By Jason villalpando Referred To Contact Cardiology Diagnoses Symptomatic PVCs Onesimo Bruno MD [address] [place] [address] Referral ID Status Reason Start Date Expiration Date Visits Re quested Visits Authorized [id number] Closed 09/27/2022 09/27/2023 1 1 Encounter Details Date Type Department Care Team (Late st Contact Info) Description 10/05/2022 12:15 PM CDT Office Visit [facility] [address] [place] [id number] Onesimo Bruno MD [address] [place] [address] Marino Hayes MD [address] [place] [address] Symptomatic PVCs Social History Tobacco Use Types Packs/Day Years [...] AM CDT documented as of this encounter Last Filed Vital Signs Vital Sign Reading Time Taken Comments Blood Pressure 127/76 10/05/2022 12:18 PM CDT Pulse 90 10/05/2022 12:18 PM CDT Temperature - - Respiratory Rate - - Oxygen Saturation - - Inhaled Oxygen Concentration - - Weight 137.9 kg (304 lb) 10/05/2022 12:18 PM CDT Height 182.9 cm (6') 10/05/2022 12:18 PM CDT Body Mass Index 41.23 10/05/2022 12:18 PM CDT documented in this encounter Progress Notes * Marino Hayes MD - 10/05/2022 12:15 PM CDT HISTORY: 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 He has a history of traumatic brain injury 2 decades ago forcing his early care home. Other medical problems include hyperlipidemia, obstructive sleep apnea using CPAP, hypertension, obesity, coronary artery disease with previous stenting of the LAD, circumflex and PDA. Finally, he has a longstanding history of symptomatic PVCs. He also has a history of a large pulmonary embolism resulting from COVIDwith ongoing pulmonary rehab and some ongoing dyspnea. He was asked to see cardiology on an urgent basis because of his recent fall. 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 He went to the bathroom and found himself unbalanced causing him to fall over and loose control of his bowels. There was associated cold sweat and a sense of palpitations as well as dyspnea. He presented to a local emergency room where he spent the day and was evaluated for coronary disease. His studies were all normal,per his report (I am unable to locate the details of that visit). A nuclear stress test was arranged and completed. That study showed no inducible ischemia, normal ejection fraction and was compared to a study done in 2014 that was unchanged. The Holter monitor was also completed which showed a heart rate between 63 and 105 with frequent PVCs (11% burden). He had symptoms of lightheadedness and shortness of breath at times associated with PVCs. The patient also has a history of a stress MRI in October 2020 which was normal without myocardial damage or valvular disease. There was no ischemiaon that study. Dr. Luong reports that he occasionally has some mild orthostatic dizziness, but he denies exertional chest arm neck shoulder or jaw discomfort, PND/orthopnea, syncope or near syncope, claudication,or strokelike symptoms. He feels that his PVCs symptoms are unchanged in recent years, and he expresses no other recent cardiac symptom concerns. ASSESSMENT/PLAN: 1. Frequent PVCs. This is a longstanding problem. We talked about the possibility of switching frommetoprolol to diltiazem to see if it gives better control, but I do not think this is medically necessary and he would prefer not to change his medications. 2. Coronary artery disease. I think this has been thoroughly evaluated. He has no exertional chest pain and had negative troponins at the time of his event 10 days ago followed by a negative nuclear stress test. No further evaluation is needed. 3. Hyperlipidemia well-controlled 4. Hypertension well-controlled 5. Recent spell. This sounds suspicious for a vasovagal spell. No further cardiology evaluation would be beneficial for him. Thank you for inviting me to participate in the care of your patient. Please don't hesitate to callif I can be of further assistance. 44 minutes were spent today reviewing the chart and other records, interviewing and examining the patient, and documenting our visit. Chart documentation was completed, in part, with Wedia voice-recognition software. Even though reviewed, some grammatical, spelling, and word errors may remain. No orders of the defined types were placed in this encounter. No orders of the defined types were placed in this encounter. Medications Discontinued During This Encounter Medication Reason venlafaxine (EFFEXOR) 75 MG tablet 10 year ASCVD risk: The ASCVD Risk score (Sakshi REYES, et al., 2019) failed to calculate for the following reasons: The valid total cholesterol range is 130 to 320 mg/dL Encounter Diagnosis Name Primary? Symptomatic PVCs CURRENT MEDICATIONS: Current Outpatient Medications Medication Sig Dispense Refill albuterol (PROAIR HFA/PROVENTIL HFA/VENTOLIN HFA) 108 (90 Base) MCG/ACT inhaler [ALBUTEROL (VENTOLIN HFA) 90 MCG/ACTUATION INHALER] 2 puffs every 6 hours as needed. Strength: 108 (90 Base) MCG/ACT 18g 2 alcohol swab prep pads Use to swab area of injection/neisha as directed daily. 100 each 3 armodafinil (NUVIGIL) 250 mg tablet [ARMODAFINIL (NUVIGIL) 250 MG TABLET] Take 250 mg by mouth daily. blood glucose (NO BRAND SPECIFIED) test strip Use to test blood sugar 1-2 times daily or as directed. To accompany: Blood Glucose Monitor Brands: per insurance. 100 strip 6 blood glucose calibration (NO BRAND SPECIFIED) solution To accompany: Blood Glucose Monitor Brands:per insurance. 1 each 0 blood glucose monitoring (NO BRAND SPECIFIED) meter device kit Use to test blood sugar 1-2 times daily or as directed. Preferred blood glucose meter OR supplies to accompany: Blood Glucose Monitor Brands: per insurance. 1 kit 0 buPROPion (WELLBUTRIN SR) 100 MG 12 hr tablet TAKE 1 TABLET BY MOUTH DAILY 30 tablet 11 cholecalciferol 50 MCG (2000 UT) tablet Take 1 capsule by mouth daily clindamycin (CLEOCIN T) 1 % external lotion APPLY TOPICALLY TO THE AFFECTED AREA TWICE DAILY. MIX WITH KETOCONAZOLE CREAM cyclobenzaprine (FLEXERIL) 5 MG tablet Take 1 tablet every 6 hours as needed for pain/spasms. 45 tablet 1 divalproex sodium delayed-release (DEPAKOTE) [address] tablet # # # Dispense BRAND ONLY : Depakote.No generic drug substitution # # # (Patient taking differently: Take 1,000 mg by mouth daily) 60 tablet 3 ezetimibe (ZETIA) 10 MG tablet TAKE 1 TABLET BY MOUTH AT BEDTIME 90 tablet 3 fluocinonide (LIDEX) 0.05 % external solution APPLY TOPICALLY TO THE SCALP TWICE DAILY NEEDED fluticasone propionate (FLONASE) 50 mcg/actuation nasal spray [FLUTICASONE PROPIONATE (FLONASE) 50 MCG/ACTUATION NASAL SPRAY] INSTILL 2 SPRAYS INTO EACH NOSTRIL DAILY 48 g 3 Xwnujsbtcrw-Uzoxpuxls-Wpyles (TRELEGY ELLIPTA) 100-62.5-25 MCG/ACT oral inhaler Inhale [...] mg) by mouth daily 90 tablet 30 nebulizers Misc [NEBULIZERS MISC] Please dispense one machine and associated necessary equipment for asthma 1 each 0 nitroglycerin (NITROSTAT) 0.4 MG SL tablet [NITROGLYCERIN (NITROSTAT) 0.4 MG SL TABLET] PLACE 1 TABLET UNDER DONALDO TONGUE EVERY 5 MINUTES NEEDED FOR CHEST PAIN. 25 tablet 5 [place]-3 Fatty Acids (FISH OIL OMEGA-3 PO) Take 1 capsule by mouth daily peg 400-propylene glycol (SYSTANE) 0.4-0.3 % Drop [PEG 400-PROPYLENE GLYCOL (SYSTANE) 0.4-0.3 % DROP] Administer 1 drop to both eyes 4 (four) times a day as needed. pen needle, diabetic (BD ULTRA-FINE MARGARITA PEN NEEDLE) 32 gauge x 5/32 Ndle [PEN NEEDLE, DIABETIC (BD ULTRA-FINE MARGARITA PEN NEEDLE) 32 GAUGE X 5/32 NDLE] Use once daily as directed 30 each 1 rivaroxaban ANTICOAGULANT (XARELTO ANTICOAGULANT) 20 MG TABS tablet Take 1 tablet (20 mg) by mouth daily 90 tablet 3 rosuvastatin (CRESTOR) 40 MG tablet [ROSUVASTATIN (CRESTOR) 40 MG TABLET] TAKE 1 TABLET BY MOUTH DAILY 90 tablet 3 tamsulosin (FLOMAX) 0.4 MG capsule TAKE 1 CAPSULE BY MOUTH DAILY AFTER SUPPER 90 capsule 3 thin (NO BRAND SPECIFIED) lancets Use with lanceting device. To accompany: Blood Glucose Monitor Brands: per insurance. 100 each 6 venlafaxine (EFFEXOR XR) 150 MG 24 hr capsule Take 1 tablets (75 mg) by mouth daily, take in addition to the 150 mg pill. 60 capsule 3 ASPIRIN NOT PRESCRIBED (INTENTIONAL) Please choose reason not prescribed from choices below. (Patient not taking: Reported on 10/05/2022) Melatonin-Pyridoxine (MELATONEX PO) Take 3-6 mg by mouth nightly as needed (Patient not taking: Reported on 10/05/2022) ALLERGIES Allergies Allergen Reactions Oxycodone Itching and Rash PAST MEDICAL HISTORY: Past Medical History: Diagnosis Date Allergic rhinitis Asthma Benign pigmented nevus Bilateral pulmonary embolism (H) 02/17/2016 Bipolar disorder (H) Chronic kidney disease Coronary atherosclerosis Created by Conversion [facility] Annotation: Mar 17 2007 12:01PM - Onesimo Bruno: PCI Proximal LAD 08/16, Mid-Distal RCA 07/21Negative Nuclear Study 06/24/10 Replacement Utility updated for latest* Edema Essential hypertension, benign Created by Conversion Hematuria History of blood clots Hypercholesteremia Metabolic syndrome Obesity Obesity, unspecified Created by Conversion IDA (obstructive sleep apnea) CPAP Pre-diabetes Sebaceous hyperplasia Skin lesion TBI (traumatic brain injury) (H) cognitive 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 Thrombophlebitis leg Wheezing PAST SURGICAL HISTORY: Past Surgical History: Procedure Laterality Date CORONARY STENT PLACEMENT x2 EYE SURGERY Right lens extraction, and put lens in ( not for cataract) INGUINAL HERNIA REPAIR Bilateral laparoscopic IR MISCELLANEOUS PROCEDURE 04/18/2007 LASIK Left NH CYSTOURETHROSCOPY,BIOPSY N/A 08/08/2018 Procedure: CYSTOSCOPY, BLADDER BIOPSY; Surgeon: Isaac Copeland MD; Location: [facility]; Service: Urology TOE SURGERY Bilateral great- metal in right FAMILY HISTORY: Family History Problem Relation Age of Onset Heart Disease Mother Cerebrovascular Disease Mother Heart Disease Father Thyroid Cancer No family hx of SOCIAL HISTORY: Social History Socioeconomic History Marital status: Spouse name: None Number of children: None Years of education: None Highest education level: None Tobacco Use Smoking status: Never Smokeless tobacco: Never Vaping Use Vaping Use: Never used Substance and Sexual Activity Alcohol use: No Drug use: No Review of Systems: Skin: Eyes: ENT: Respiratory: Positive for shortness of breath;dyspnea on exertion Cardiovascular: palpitations;Positive for;edema;fatigue;lightheadedness Gastroenterology: Genitourinary: Musculoskeletal: Neurologic: Psychiatric: Heme/Lymph/Imm: Endocrine: Physical Exam: Vitals: BP 127/76 Pulse 90 Ht 1.829 m (6') Wt 137.9 kg (304 lb) BMI 41.23 kg/m?? Constitutional: cooperative, alert and oriented, well developed, well nourished, in no acute distress obese Skin: warm and dry to the touch, no apparent skin lesions or masses noted Head: normocephalic, no masses or lesions Eyes: pupils equal and round, conjunctivae and lids unremarkable, sclera white, no xanthalasma, EOMS intact, no nystagmus ENT: no pallor or cyanosis, dentition good Neck: carotid pulses are full and equal bilaterally, JVP normal, no carotid bruit Chest: normal breath sounds, clear to auscultation, normal A-P diameter, normal symmetry, normal respiratory excursion, no use of accessory muscles Cardiac: regular rhythm, normal S1/S2, no S3 or S4, apical impulse not displaced, no murmurs, gallops or rubs Abdomen: abdomen soft;BS normoactive Vascular: pulses full and equal Extremities and Muscular Skeletal: bilateral LE edema;trace;1+ Neurological: no gross motor deficits Psych: affect appropriate, oriented to time, person and place Recent Lab Results: LIPID RESULTS: Lab Results Component Value Date CHOL 124 07/21/2022 HDL 42 07/21/2022 LDL 56 07/21/2022 TRIG 130 07/21/2022 LIVER ENZYME RESULTS: Lab Results Component Value Date AST 33 09/16/2022 ALT 50 09/16/2022 CBC RESULTS: Lab Results Component Value Date WBC 5.5 09/16/2022 RBC 4.77 09/16/2022 HGB 14.7 09/16/2022 HCT 44.4 09/16/2022 MCV 93 09/16/2022 MCH 30.8 09/16/2022 MCHC 33.1 09/16/2022 RDW 13.4 09/16/2022 PLT 157 09/16/2022 BMP RESULTS: Lab Results Component Value Date NA 138 09/16/2022 POTASSIUM 4.1 09/16/2022 POTASSIUM 4.6 07/16/2021 CHLORIDE 101 09/16/2022 CHLORIDE 105 07/16/2021 CO2 25 09/16/2022 CO2 27 07/16/2021 ANIONGAP 12 09/16/2022 ANIONGAP 9 07/16/2021 GLC 117 (H) 09/16/2022 GLC 103 07/16/2021 BUN 18.7 09/16/2022 BUN 12 07/16/2021 CR 1.29 (H) 09/16/2022 GFRESTIMATED 60 (L) 09/16/2022 GFRESTIMATED >60 09/21/2019 GFRESTBLACK >60 09/21/2019 YOLY 8.9 09/16/2022 A1C RESULTS: Lab Results Component Value Date A1C 6.0 (H) 07/21/2022 INR RESULTS: Lab Results Component Value Date INR 1.26 (H) 08/29/2017 Marino Hayes MD, FACC CC Onesimo Bruno MD [address] [place] [address] documented in this encounter Plan of Treatment Upcoming Encounters Date Type Department Care Team (Late st Contact Info) Description 04/04/2023 1:00 PM TRANSFER PUMPER Virtual Visit [facility] [address] [place] [address] Keke Brooks, RD [address] [facility] [address] [place] [address] documented as of this encounter Goals Goal [...] goal at outreach telephone calls from the [facility] team Discussed 12/28/22 documented as of this encounter Visit Diagnoses Diagnosis Symptomatic PVCs Other premature beats documented in this encounter Additional Health Concerns Problem Noted Date Diagnosed Date HP GENERAL PROBLEM 11/13/2021 Assessment Noted Time PHQ-9 Depression Total Score: 8 04/16/19 9:42 AM TRANSFER PUMPER documented as of this encounter Care Teams Profile Grinder Technician Relationship Specialty Start Date End Date Onesimo Bruno MD PCP - General 08/11/06 Bhavna Mac PharmD [address] [place] [address] Pharmacist Pharmacist 07/11/18 Isaac Bro, RN Lead Tight Cooper Primary Care - CC 09/01/18 Onesimo Bruno MD [address] [place] [address] Assigned PCP 07/30/20 Nataliia Gomez MD [address] [facility], [address] [place] [address] Assigned Heart and Vascular Provider 08/29/20 10/08/22 Rafita Ayers MD [address] [place] [address] Assigned Pulmonology Provider 10/12/20 Flo Henry MD [address] [address] Assigned Behavioral Health Provider 09/21/20 Jana Vick, [facility] Community Health Worker Primary Care - CC 06/08/21 Lorri Larsen MD [address] [place] [address] Otolaryngology 07/21/21 Lorri Larsen MD [address] [place] [address] Assigned Surgical Provider 10/10/21 Rafita Ayers MD [address] [place] [address] Critical Care 11/30/21 Kaelyn New AuD [address] [place] [address] Middle School Resource Teacher Audiology 12/09/21 Marino Hayes MD [address] [place] [address] Cardiovascular Disease 09/28/22 documented as of this encounter
--- OUTSIDE RECORDS SUMMARY | 2023-02-27 14:28 | XMS_ITS | Encounter Summary ---
Author Name Unknown Organization [facility] Address [address] [place] [address] Care Team Providers Care Talent Engineer Name Role Phone Onesimo Bruno MD Primary Care Provider [phone] Bhavna Mac PharmD Unavailable [phone] Isaac Bro RN Unavailable Unavailable Onesimo Bruno MD Unavailable [phone] Nataliia Gomez MD Unavailable Rafita Ayers MD Unavailable [phone] Flo Henry MD Unavailable [phone] Jana Vick W Unavailable UnavailLorri Ulloa MD Unavailable [phone] Lorri Larsen MD Unavailable [phone] Rafita Ayers MD Unavailable [phone] Kaelyn New Unavailable [phone] Reason for Visit * CV Testing (Urgent: 3-5 Days) - Closed Specialty Diagnoses / Procedures Referred By Contac t Referred To Contact Cardiology Diagnoses Palpitations Procedures Adult Holter Monitor 24 hour ZZC AMB BP MONITORING W/SW >=24 HR, RECORD/SCAN/INTRP/RPT ZZHC HOLTER RECORDING 24 HRS ZZHC HOLTER SCAN 24 HRS TN HOLTER RECORDING 24 HRS TN HOLTER SCAN 24 HRS TN AMB BP MONITORING W/SW >=24 HR, RECORD/SCAN/INTRP/RPT HC HOLTER RECORDING 24 HRS HC HOLTER SCAN 24 HRS, ANALYSIS WITH REPORT Onesimo Bruno MD [address] [place] [address] [facility] Cardiac Testing [address] [place] [address] Referral ID Status Reason Start Date Expiration Date Visits Re quested Visits Authorized [id number] Closed 09/16/2022 09/16/2023 1 1 Encounter Details Date Type Department Care Team (Late st Contact Info) Description 09/22/2022 9:26 AM CDT - 09/22/2022 10:14 AM CDT Hospital Encounter [facility] [address] [place] [address] Onesimo Bruno MD [facility]8 [place], [place] [id number] Palpitations Discharge Disposition: Home or Self Care Social [...] Recorded In the last 10 days, have bridgette u been in contact with someone who was confirmed or suspected to have Coronavirus/COVID-19? No / Unsure 09/22/2022 8:14 AM CDT documented as of this encounter [...] (NITROSTAT) 0.4 MG SL tabletIndications:Athe rosclerosis of [place] coronary artery of [place] heart without angina pectoris [NITROGLYCERIN (NITROSTAT) 0.4 MG SL TABLET] PLACE 1 TABLET UNDER DONALDO TONGUE EVERY 5 MINUTES NEEDED FOR CHEST PAIN. 25 tablet 5 06/09/2020 [place]-3 Fatty Acids (FISH OIL OMEGA-3 PO) Take [...] tablet 11 09/07/2022 10/21/2022 cholecalciferol 50 MCG (1999 UT) tablet Take 1 capsule by mouth [...] 50 MG 24 hr tabletIndications:Athe rosclerosis of [place] coronary artery of [place] heart without angina pectoris Take 1 tablet [...] rosuvastatin (CRESTOR) 40 MG tabletIndications:Athe rosclerosis of [place] coronary artery of [place] heart without angina pectoris [ROSUVASTATIN (CRESTOR) 40 [...] st Contact Info) Description 04/04/2023 1:00 PM ECOMMERCE MERCHANDISING MANAGER Virtual Visit [facility] [address] [place] [address] Keke Brooks, RD 420 [facility] 84 [place] [address] documented as of this encounter [...] will look into working with a personal property assessor to assist me with resistance training. 5. I will report progress towards this goal at outreach telephone calls from the [facility] team Discussed 12/28/22 documented as of this encounter Procedures Procedure Name Priority Date/Time Associated Diagnosis Comments HOLTER MONITOR 24 HOUR APPLICATION SCAN ANALYSIS AND PROVIDER INTERPRETATION STAT 09/22/2022 1:08 PM CDT Palpitations documented in this encounter Results * HOLTER MONITOR 24 HOUR APPLICATION SCAN ANALYSIS AND PROVIDER INTERPRETATION (09/22/2022 1:08 PM CDT) Anatomical Region Laterality Modality Ultrasound, Othe r 09/22/2022 9:53 AM CDT Onesimo Bruno MD [facility] CARDIAC SERVICES ORDERABLES documented in this encounter Visit Diagnoses Diagnosis Palpitations documented in this encounter Additional Health Concerns Problem Noted Date Diagnosed Date HP GENERAL PROBLEM 11/13/2021 Assessment Noted Time PHQ-9 Depression Total Score: 8 04/16/19 23 9:42 AM ECOMMERCE MERCHANDISING MANAGER documented as of this encounter Care Teams Talent Engineer Relationship Specialty Start Date End Date Onesimo Bruno MD PCP - General 08/11/06 Bhavna Mac, GenesisD [address] [place] [address] Pharmacist Pharmacist 07/11/18 Isaac Bro, RN Lead Refrigeration Engineer Primary Care - CC 09/01/18 Onesimo Bruno MD [address] [place] [address] Assigned PCP 07/30/20 Nataliia Gomez MD [address] [facility], [address] [place] [address] Assigned Heart and Vascular Provider 08/29/20 10/08/22 Rafita Ayers MD [address] [place] [address] Assigned Pulmonology Provider 10/12/20 Flo [place] MD [facility] [address] Assigned Behavioral Health Provider 09/21/20 Jana Vick, W Community Health Worker Primary Care - CC 06/08/21 Lorri Larsen MD [address] [place] [address] Otolaryngology 07/21/21 Lorri Larsen MD [address] [place] [address] Assigned Surgical Provider 10/10/21 Rafita Ayers MD [address] [place] [address] Critical Care 11/30/21 Kaelyn New AuD [address] [place] [address] Manager Women Audiology 12/09/21 documented as of this encounter
--- OUTSIDE RECORDS SUMMARY | 2023-02-27 14:28 | XMS_ITS | Encounter Summary ---
Author Name Unknown Organization [place] Address [address] [place] [address] Care Team Providers Care Beauty Director Name Role Phone Onesimo Bruno MD Primary Care Provider [phone] Bhavna Mac PharmD Unavailable [phone] Isaac Bro RN Unavailable Unavailable Onesimo Bruno MD Unavailable [phone] Nataliia Gomez MD Unavailable Rafita Ayers MD Unavailable [phone] Flo Henry MD Unavailable [phone] Jana Vick CHW Unavailable UnavailLorri Ulloa MD Unavailable [phone] Lorri Larsen MD Unavailable [phone] Rafita Ayers MD Unavailable [phone] Kaelyn New Unavailable [phone] Encounter Details Date Type Department Care Team (Latest Contact Info) Description 09/23/2022 Travel Social History Tobacco Use Types Packs/Day [...] st Contact Info) Description 04/04/2023 1:00 PM SLIP SHEETER Virtual Visit [facility]ariat[facility] Care [address] [place] [address] Keke Brooks, RD 420 [facility] 84 [place], [place] [address] documented as of this encounter Goals Goal [...] look into working with a personal lines underwriter to assist me with resistance training. 5. I will report progress towards this goal at outreach telephone calls from the [facility] team Discussed 12/28/22 documented as of this encounter Visit Diagnoses Not on filedocumented in this encounter Additional Health Concerns Problem Noted Date Diagnosed Date HP GENERAL PROBLEM 11/13/2021 Assessment Noted Time PHQ-9 Depression Total Score: 8 04/16/19 9:42 AM SLIP SHEETER documented as of this encounter Care Teams Beauty Director Relationship Specialty Start Date End Date Onesimo Bruno MD PCP - General 08/11/06 Bhavna Mac, GenesisD [address] [place] [address] Pharmacist Pharmacist 07/11/18 Isaac Bro, RN Lead Brake Adjuster Primary Care - CC 09/01/18 Onesimo Bruno MD [address] [place] [address] Assigned PCP 07/30/20 Nataliia Gomez MD [address] [facility], [address] [place] [address] Assigned Heart and Vascular Provider 08/29/20 10/08/22 Rafita Ayers MD [address] [place] [id number] Assigned Pulmonology Provider 10/12/20 Flo [place] MD [address] [place] [id number] Assigned Behavioral Health Provider 09/21/20 Jana Vick W Community Health Worker Primary Care - CC 06/08/21 Lorri Larsen MD [address] [place] [address] Otolaryngology 07/21/21 Lorri Larsen MD [address] [place] [address] Assigned Surgical Provider 10/10/21 Rafita Ayers MD [address] [place] [address] Critical Care 11/30/21 Kaelyn New AuD [address] [place] [address] Process Control Technician Audiology 12/09/21 documented as of this encounter
--- OUTSIDE RECORDS SUMMARY | 2023-02-27 14:28 | XMS_ITS | Encounter Summary ---
Author Name Unknown Organization [place] Address [address] [place] [address] Care Team Providers Care Dry Roller Name Role Phone Onesimo Bruno MD Primary Care Provider [phone] Bhavna Mac PharmD Unavailable [phone] Isaac Bro RN Unavailable Unavailable Onesimo Bruno MD Unavailable [phone] Nataliia Gomez MD Unavailable Rafita Ayers MD Unavailable Flo Henry MD Unavailable [phone] Jana Vick W Unavailable UnavailLorri Ulloa MD Unavailable [phone] Lorri Larsen MD Unavailable [phone] Rafita Ayers MD Unavailable [phone] Kaelyn New Unavailable [phone] Reason for Visit * Diagnostic Imaging NM (Routine) - Authorized Specialty Diagnoses / Procedures Referred By Contac t Referred To Contact Cardiology Diagnoses NAVAS (dyspnea on exertion) Procedures NM Lexiscan stress test Onesimo Bruno MD [address] [place] [address] Sjn Cardiac Testing [address] [place] [id number] Referral ID Status Reason Start Date Expiration Date V isits Requested Visits Authorized [id number] Authorized 09/16/2022 09/16/2023 5 5 Encounter Details Date Type Department Care Team (Late st Contact Info) Description 09/23/2022 9:00 AM CDT - 09/23/2022 9:10 AM CDT Hospital Encounter [facility] [address] [place] [phone] Onesimo Bruno MD [address] [place] [address] Discharge Disposition: Home or Self Care Social [...] (NITROSTAT) 0.4 MG SL tabletIndications:Athe rosclerosis of [place] coronary artery of [place] heart without angina pectoris [NITROGLYCERIN (NITROSTAT) 0.4 MG SL TABLET] PLACE 1 TABLET UNDER DONALDO TONGUE EVERY 5 MINUTES NEEDED FOR CHEST PAIN. 25 tablet 5 06/09/2020 Talbott-3 Fatty Acids (FISH OIL OMEGA-3 PO) Take [...] 50 MG 24 hr tabletIndications:Athe rosclerosis of [place] coronary artery of [place] heart without angina pectoris Take 1 tablet [...] rosuvastatin (CRESTOR) 40 MG tabletIndications:Athe rosclerosis of [place] coronary artery of [place] heart without angina pectoris [ROSUVASTATIN (CRESTOR) 40 [...] st Contact Info) Description 04/04/2023 1:00 PM GENERAL WAREHOUSE ASSOCIATE Virtual Visit [facility] [address] [place] [address] Keke Brooks, RD 420 [facility] 84 [place] [address] documented as of this encounter Goals Goal [...] I will look into working with a senior technical trainer to assist me with resistance training. 5. I will report progress towards this goal at outreach telephone calls from the [facility] team Discussed 12/28/22 documented as of this encounter Procedures Procedure Name Priority Date/Time Associated Diagnosis Comments NM MPI WITH LEXISCAN STAT 09/23/2022 10:27 AM CDT NAVAS (dyspnea on exertion) documented in this encounter Visit Diagnoses Not on filedocumented in this encounter Administered Medications Inactive Administered Medications - up to 3 most recent administrations Medication Order MAR Action Action Date Dose Rate Site technetium sestamibi 2 UD per study (Tc99m MiBi) radioisotope injection 35-50 millicurie 35-50 millicurie, Intravenous, ONCE, On Maggie 09/23/22 at 0930, For 1 dose, Radioisotope, supplied by and administered by Nuclear Medicine. *HW* $Given 09/23/2022 9:47 AM CDT 46.4 millicuries documented in this encounter Additional Health Concerns Problem Noted Date Diagnosed Date HP GENERAL PROBLEM 11/13/2021 Assessment Noted Time PHQ-9 Depression Total Score: 8 04/16/19 23 9:42 AM GENERAL WAREHOUSE ASSOCIATE documented as of this encounter Care Teams Dry Roller Relationship Specialty Start Date End Date Onesimo rBuno MD PCP - General 08/11/06 Bhavna Mac, PharmD [address] [place] [address] Pharmacist Pharmacist 07/11/18 Isaac Bro, RN Lead Service Center Specialist Primary Care - CC 09/01/18 Onesimo Bruno MD [address] [place] [address] Assigned PCP 07/30/20 Nataliia Gomez MD [address] [facility], [address] [place], [place] [phone] Assigned Heart and Vascular Provider 08/29/20 10/08/22 Rafita Ayers MD [address] [place] [id number] Assigned Pulmonology Provider 10/12/20 Flo Henry MD [address] [id number] Assigned Behavioral Health Provider 09/21/20 Jana Vick, W Community Health Worker Primary Care - CC 06/08/21 Lorri Larsen MD [address] [place] [address] Otolaryngology 07/21/21 Lorri Larsen MD [address] [place] [address] Assigned Surgical Provider 10/10/21 Rafita Ayers MD [address] [place] [address] Critical Care 11/30/21 Kaelyn New AuD [address] [place] [address] Assistant Press Operator Audiology 12/09/21 documented as of this encounter
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
--- OUTSIDE RECORDS SUMMARY | 2023-02-27 14:28 | XMS_ITS | Encounter Summary ---
Author Name Unknown Organization [facility] Address [address] [place] [address] Care Team Providers Care Crew Truck Driver Name Role Phone Onesimo Bruno MD Primary Care Provider [phone] Bhavna Mac PharmD Unavailable [phone] Isaac Bro RN Unavailable Unavailable Onesimo Bruno MD Unavailable [phone] Nataliia Gomez MD Unavailable Rafita Ayers MD Unavailable [phone] Flo Henry MD Unavailable [phone] Jana Vick CHW Unavailable UnavailLorri Ulloa MD Unavailable [phone] Lorri Larsen MD Unavailable [phone] Rafita Ayers MD Unavailable [phone] Kaelyn New Unavailable [phone] Encounter Details Date Type Department Care Team (Latest Contact Info) Description 09/22/2022 Travel Social History Tobacco Use Types Packs/Day [...] st Contact Info) Description 04/04/2023 1:00 PM TERRAZZO LAYER HELPER Virtual Visit [facility] [address] [place] [address] Keke Brooks, RD 420 [facility] 84 [place], [place] [address] documented as of this encounter Goals Goal [...] look into working with a personal care assistant to assist me with resistance training. 5. I will report progress towards this goal at outreach telephone calls from the [facility] team Discussed 12/28/22 documented as of this encounter Visit Diagnoses Not on filedocumented in this encounter Additional Health Concerns Problem Noted Date Diagnosed Date HP GENERAL PROBLEM 11/13/2021 Assessment Noted Time PHQ-9 Depression Total Score: 8 04/16/19 9:42 AM TERRAZZO LAYER HELPER documented as of this encounter Care Teams Crew Truck Driver Relationship Specialty Start Date End Date Onesimo Bruno MD PCP - General 08/11/06 Bhavna Mac, GenesisD [address] [place] [address] Pharmacist Pharmacist 07/11/18 Isaac Bro, RN Lead Flat Finisher Primary Care - CC 09/01/18 Onesimo Bruno MD [address] [place] [address] Assigned PCP 07/30/20 Nataliia Gomez MD [address] [facility], [address] [place] [address] Assigned Heart and Vascular Provider 08/29/20 10/08/22 Rafita Ayers MD [address] [place] [address] [phone] Assigned Pulmonology Provider 10/12/20 Flo Henry MD [address] [place] [id number] Assigned Behavioral Health Provider 09/21/20 Jana Vick W Community Health Worker Primary Care - CC 06/08/21 Lorri Larsen MD [address] [place] [address] Otolaryngology 07/21/21 Lorri Larsen MD [address] [place] [address] Assigned Surgical Provider 10/10/21 Rafita Ayers MD [address] [place] [address] Critical Care 11/30/21 Kaelny New AuD [address] [place] [address] Disintegrator Audiology 12/09/21 documented as of this encounter
--- OUTSIDE RECORDS SUMMARY | 2023-02-27 14:28 | XMS_ITS | Encounter Summary ---
Author Name Unknown Organization [place] Address [address] [place] [address] Care Team Providers Care Delivery Crew Worker Name Role Phone Onesimo Bruno MD Primary Care Provider [phone] Bhavna Mac PharmD Unavailable [phone] Isaac Bro RN Unavailable Unavailable Onesimo Bruno MD Unavailable [phone] Nataliia Gomez MD Unavailable Rafita Ayers MD Unavailable [phone] Flo Henry MD Unavailable [phone] Jana Vick CHW Unavailable UnavailLorri Ulloa MD Unavailable [phone] Lorri Larsen MD Unavailable [phone] Rafita Ayers MD Unavailable [phone] Kaelyn New AuD Unavailable [phone] Marino Hayes MD Unavailable [phone] Encounter Details Date Type Department Care Team (Latest Contact Info) Description 10/05/2022 Travel Social History Tobacco Use Types Packs/Day [...] st Contact Info) Description 04/04/2023 1:00 PM SECURITY INSPECTOR Virtual Visit [facility] and Bariatrics Care [address] [place] [address] Keke Brooks, RD 420 [facility] 84 [place] [address] documented as of this encounter Goals Goal [...] will look into working with a personal banking officer to assist me with resistance training. 5. I will report progress towards this goal at outreach telephone calls from the [facility] team Discussed 12/28/22 documented as of this encounter Visit Diagnoses Not on filedocumented in this encounter Additional Health Concerns Problem Noted Date Diagnosed Date HP GENERAL PROBLEM 11/13/2021 Assessment Noted Time PHQ-9 Depression Total Score: 8 04/16/19 9:42 AM SECURITY INSPECTOR documented as of this encounter Care Teams Delivery Crew Worker Relationship Specialty Start Date End Date Onesimo Bruno MD PCP - General 08/11/06 Bhavna Mac, GenesisD [address] [place] [address] Pharmacist Pharmacist 07/11/18 Isaac Bro, RN Lead Body Fitter Primary Care - CC 09/01/18 Onesimo Bruno MD [address] [place] [address] Assigned PCP 07/30/20 Nataliia Gomez MD [address] [place] [address], [address] [place] [address] Assigned Heart and Vascular Provider 08/29/20 10/08/22 Rafita Ayers MD [address] [place] [address] Assigned Pulmonology Provider 10/12/20 Flo Henry MD [address] [place] [address] Assigned Behavioral Health Provider 09/21/20 Jana Vick Vaib[facility] Community Health Worker Primary Care - CC 06/08/21 Lorri Larsen MD [address] [place] [address] Otolaryngology 07/21/21 Lorri Larsen MD [address] [place] [address] Assigned Surgical Provider 10/10/21 Rafita Ayers MD [address] [place] [address] Critical Care 11/30/21 Kaelyn New AuD [address] [place] [address] Electronics Utility Worker Audiology 12/09/21 Marino Hayes MD [address] [place] [address] Cardiovascular Disease 09/28/22 documented as of this encounter
--- OUTSIDE RECORDS SUMMARY | 2023-02-27 14:29 | XMS_ITS | Encounter Summary ---
Author Name Unknown Organization [place] Address [address] [place] [address] Care Team Providers Care Wind Field Manager Name Role Phone Onesimo Bruno MD Primary Care Provider [phone] Bhavna Mac PharmD Unavailable [phone] Isaac Bro RN Unavailable Unavailable Onesimo Bruno MD Unavailable [phone] Nataliia Gomez MD Unavailable Rafita Ayers MD Unavailable [phone] Flo Henry MD Unavailable [phone] Jana Vick CHW Unavailable UnavailLorri Ulloa MD Unavailable [phone] Lorri Larsen MD Unavailable [phone] Rafita Ayers MD Unavailable [phone] Kaelyn New Unavailable [phone] Encounter Details Date Type Department Care Team (Latest Contact Info) Description 09/13/2022 Travel Social History Tobacco Use Types Packs/Day [...] suspected to have Coronavirus/COVID-19? No / Unsure 09/13/2022 4:48 PM CDT documented as of this encounter Plan of Treatment Upcoming Encounters Date Type Department Care Team (Late st Contact Info) Description 04/04/2023 1:00 PM VIDEO PRODUCTION COORDINATOR Virtual Visit [facility] Surgery Clinic and Bariatrics Care [address] 200 [place] [phone] Keke Brooks, RD 420 [facility] 84 [place], [place] [id number] documented as of this encounter Goals Goal [...] I will look into working with a animal trainer supervisor to assist me with resistance training. 5. I will report progress towards this goal at outreach telephone calls from the [facility] team Discussed 12/28/22 documented as of this encounter Visit Diagnoses Not on filedocumented in this encounter Additional Health Concerns Problem Noted Date Diagnosed Date HP GENERAL PROBLEM 11/13/2021 Assessment Noted Time PHQ-9 Depression Total Score: 8 04/16/19 9:42 AM VIDEO PRODUCTION COORDINATOR documented as of this encounter Care Teams Wind Field Manager Relationship Specialty Start Date End Date Onesimo Bruno MD PCP - General 08/11/06 Bhvana Mac, GenesisD [address] [place] [address] Pharmacist Pharmacist 07/11/18 Isaac Bro, RN Lead Hydraulic Repairer Primary Care - CC 09/01/18 Onesimo Bruno MD 1390 [place] [address] Assigned PCP 07/30/20 Nataliia Gomez MD 1600 [facility], [address] [place] [address] Assigned Heart and Vascular Provider 08/29/20 10/08/22 Rafita Ayers MD [address] [place] [address] [id number] Assigned Pulmonology Provider 10/12/20 Flo Henry MD [address] [place] [address] [id number] Assigned Behavioral Health Provider 09/21/20 Jana Vick W Community Health Worker Primary Care - CC 06/08/21 Lorri Larsen MD [address] [place] [address] Otolaryngology 07/21/21 Lorri Larsen MD [address] [place] [address] Assigned Surgical Provider 10/10/21 Rafita Ayers MD [address] [place] [address] Critical Care 11/30/21 Kaelyn New AuD [address] [place] [address] Hospice Art Therapist Audiology 12/09/21 documented as of this encounter
--- OUTSIDE RECORDS SUMMARY | 2023-02-27 14:29 | XMS_ITS | Encounter Summary ---
Author Name Unknown Organization [place] Address [address] [place] [address] Care Team Providers Care Supervisor Metal Furniture Fabrication Name Role Phone Onesimo Bruno MD Primary Care Provider [phone] Bhavna Mac PharmD Unavailable [phone] Isaac Bro RN Unavailable Unavailable Onesimo Bruno MD Unavailable [phone] Nataliia Gomez MD Unavailable Rafita Ayers MD Unavailable [phone] Flo Henry MD Unavailable [phone] Jana Vick CHW Unavailable UnavailLorri Ulloa MD Unavailable [phone] Lorri Larsen MD Unavailable [phone] Rafita Ayers MD Unavailable [phone] Kaelyn New Unavailable [phone] Reason for Visit * Reason Comments Medication Refill Encounter Details Date Type Department Care Team (Late st Contact Info) Description 09/05/2022 [facility] Neurology Clinic [facility] 5 [place] [phone] Flo Henry MD [address] [id number] Medication Refill Social History Tobacco Use Types [...] encounter Miscellaneous Notes * Telephone Encounter - Delfina Dailey MA - 09/06/2022 7:26 AM CDT Rx refill request for buPROPion (WELLBUTRIN SR) 100 MG 12 hr tablet Last refill; 30 tabs 0 refills Last follow-up; 06/22/22 Next follow-up; None, Msg sent to help desk support specialist to call Pt for an appt. Medication T'd for review and signature Delfina Dailey MA on 09/06/2022 at 7:28 AM documented in this encounter Plan of Treatment Upcoming Encounters Date Type Department Care Team (Late st Contact Info) Description 04/04/2023 1:00 PM MAINTENANCE GROUNDMAN Virtual Visit [facility] Surgery Clinic and Bariatrics Care [address] 200 [place] [phone] Keke Brooks, RD 420 [facility] 84 [place] [address] documented as of this encounter Goals Goal [...] look into working with a personal property appraiser to assist me with resistance training. 5. I will report progress towards this goal at outreach telephone calls from the [facility] team Discussed 12/28/22 documented as of this encounter Visit Diagnoses Diagnosis Neurocognitive disorder Unspecified persistent mental disorders due to conditions classified elsewhere documented in this encounter Additional Health Concerns Problem Noted Date Diagnosed Date HP GENERAL PROBLEM 11/13/2021 Assessment Noted Time PHQ-9 Depression Total Score: 8 04/16/19 23 9:42 AM MAINTENANCE GROUNDMAN documented as of this encounter Care Teams Supervisor Metal Furniture Fabrication Relationship Specialty Start Date End Date Onesimo Bruno MD PCP - General 08/11/06 Bhavna Mac PharmD [address]70 [place] [address] Pharmacist Pharmacist 07/11/18 Isaac Bro, RN Lead Agency Sales Development Associate Primary Care - CC 09/01/18 Onesimo Bruno MD [address] [place] [address] Assigned PCP 07/30/20 Nataliia Gomez MD 1600 [facility], [address] [place] [address] Assigned Heart and Vascular Provider 08/29/20 10/08/22 Rafita Ayers MD 9 [place] [address] Assigned Pulmonology Provider 10/12/20 Flo Henry MD [address] [place] [address] Assigned Behavioral Health Provider 09/21/20 Jana Vick W Community Health Worker Primary Care - CC 06/08/21 Lorri Larsen MD [address] [place] [address] Otolaryngology 07/21/21 Lorri Larsen MD [address] [place] [address] Assigned Surgical Provider 10/10/21 Rafita Ayers MD [address] [place] [address] Critical Care 11/30/21 Kaelyn New, Shena [address] [place] [address] Entry Level Staff Accountant Audiology 12/09/21 documented as of this encounter
--- OUTSIDE RECORDS SUMMARY | 2023-02-27 14:29 | XMS_ITS | Encounter Summary ---
Author Name Unknown Organization [facility] Address [address] [place] [address] Care Team Providers Care Maintenance Technician 3Rd Shift Name Role Phone Onesimo Bruno MD Primary Care Provider [phone] Bhavna Mac PharmD Unavailable Isaac Bro RN Unavailable Unavailable Onesimo Bruno MD Unavailable [phone] Nataliia Gomez MD Unavailable Rafita Ayers MD Unavailable Flo Henry MD Unavailable [phone] Jana Vick W Unavailable UnavailLorri Ulloa MD Unavailable [phone] Lorri Larsen MD Unavailable [phone] Rafita Ayers MD Unavailable [phone] Kaelyn New Unavailable Reason for Referral * Diagnostic Imaging NM (Routine) - Authorized Specialty Diagnoses / Procedures Referred By Contac t Referred To Contact Cardiology Diagnoses NAVAS (dyspnea on exertion) Procedures NM Lexiscan stress test Onesimo Bruno MD [address] [place] [address] Sjn Cardiac Testing [facility]5 [place] [address] Referral ID Status Reason Start Date Expiration Date V isits Requested Visits Authorized [id number] Authorized 09/16/2022 09/16/2023 5 5 * CV Testing (Urgent: 3-5 Days) - Closed Specialty Diagnoses / Procedures [facility] Referred To Contact Cardiology Diagnoses Palpitations Procedures Adult Holter Monitor 24 hour ZZC AMB BP MONITORING W/SW >=24 HR, RECORD/SCAN/INTRP/RPT ZZHC HOLTER RECORDING 24 HRS ZZHC HOLTER SCAN 24 HRS MO HOLTER RECORDING 24 HRS MO HOLTER SCAN 24 HRS MO AMB BP MONITORING W/SW >=24 HR, RECORD/SCAN/INTRP/RPT HC HOLTER RECORDING 24 HRS HC HOLTER SCAN 24 HRS, ANALYSIS WITH REPORT Onesimo Bruno MD [address] [place] [address] [facility] Cardiac Testing [address] [place] [phone] Referral ID Status Reason Start Date Expiration Date Visits Re quested Visits Authorized [id number] Closed 09/16/2022 09/16/2023 1 1 * Diagnostic Imaging XR (Routine) - Pending Review Specialty Diagnoses / Procedures [facility] Referred To Contact Radiology. Diagnoses NAVAS (dyspnea on exertion) Procedures XR Chest 2 Views Onesimo Bruno MD [address] [place] [address] Referral ID Status Reason Start Date Expiration Date V isits Requested Visits Authorized [id number] Pending Review 09/16/2022 09/16/2023 1 1 Reason for Visit * Reason Comments Breathing Problem Increased NAVAS - pt d idn't go into the ED as instructed on 09/14/22 Encounter Details Date Type Department Care Team (Late st Contact Info) Description 09/16/2022 8:40 AM CDT Office Visit [facility] [address] [place] [phone] Onesimo Bruno MD [address] [place] [address] NAVAS (dyspnea on exertion) (Primary Dx); Bilateral pulmonary embolism (H); Morbid obesity (H); Atherosclerosis of [place] coronary artery of [place] heart, unspecified whether angina present; Moderate persistent asthma without complication; Palpitations Social History Tobacco Use Types Packs/Day Years [...] suspected to have Coronavirus/COVID-19? No / Unsure 09/16/2022 8:40 AM CDT documented as of this encounter Last Filed Vital Signs Vital Sign Reading Time Taken Comments Blood Pressure 118/60 09/16/2022 8:34 AM CDT Pulse 84 09/16/2022 8:34 AM CDT Temperature 36.6 ??C (97.9 ??F) 09/16/2022 8:34 AM CD T Respiratory Rate - - Oxygen Saturation 96% 09/16/2022 8:34 AM CDT Inhaled Oxygen Concentration - - Weight 138.3 kg (305 lb) 09/16/2022 8:34 AM CDT Height 182.9 cm (6') 09/16/2022 8:34 AM CDT Body Mass Index 41.37 09/16/2022 8:34 AM CDT documented in this encounter Progress Notes * Onesimo Bruno MD - 09/16/2022 8:40 AM CDT 1. NAVAS (dyspnea on exertion) Concerning. We discussed the differential. Could be an anginal equivalent. I do not think that recurrent PE would be likely due to his compliance with his anticoagulant. He is also not hypoxic. No pleuritic chest pain. There is no wheezing today so I do not think this is his asthma. Could be profound deconditioning. If everything turns out okay I think we will need to get him back into some pulmonary rehab or cardiac rehab. - EKG 12-lead, tracing only - XR Chest 2 Views; Future - Comprehensive metabolic panel (BMP + Alb, Alk Phos, ALT, AST, Total. Bili, TP); Future - CBC with platelets; Future - BNP-N terminal pro; Future - NM Lexiscan stress test; Future 2. Bilateral pulmonary embolism (H) No hypoxia. Continue his anticoagulant. 3. Morbid obesity (H) He has been unable to lose any weight unfortunately. 4. Atherosclerosis of [place] coronary artery of [place] heart, unspecified whether angina present No chest pains and EKG without acute changes. Stress Cardiolite given his history. 5. Moderate persistent asthma without complication Continue his current inhalers per pulmonary. 6. Palpitations We will have him undergo Holter. - Adult Holter Monitor 24 hour; Future Subjective Roger is a 71 year old, presenting for the following health issues: Breathing Problem (Increased NAVAS - pt didn't go into the ED as instructed on 09/14/22) 09/16/2022 8:34 AM Additional Questions Roomed by Brigette Accompanied by Cordell History of Present Illness Asthma: He presents [...] per week. He is taking medications regularly. Dr. 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 Initially they stated this started just a few days ago but in hindsight they think maybe its been progressive since the start of the summer. He has been extremely sedentary this summer with little to no exercise. He basically sits on thecouch or chair and looks at [employer] videos. He does have sleep apnea as well but is compliant with his CPAP. He tells me that he has not missed any of his doses of anticoagulant and he has been compliant with medication and his confirms this. He does note that he over the last few weeks to months have been waking up in the middle of the night with shortness of breath and palpitations. Review of Systems Objective BP 118/60 (BP Location: Left arm, Patient Position: Sitting, Cuff Size: Adult Regular) Pulse 84 Temp 97.9 ??F (36.6 ??C) (Tympanic) Ht 1.829 m (6') Wt 138.3 kg (305 lb) SpO2 96% BMI 41.37kg/m?? Body mass index is 41.37 kg/m??. Physical Exam Pleasant gentleman. 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 Unchanged. Lungs are clear today. No wheezes. Heart is regular with occasional ectopy. documented in this encounter Plan of Treatment Upcoming Encounters Date Type Department Care Team (Late st Contact Info) Description 04/04/2023 1:00 PM CATH LABORATORY TECHNICIAN Virtual Visit [facility] Surgery Clinic and Bariatrics Care [address] [place] [address] Keke Brooks, RD [address] [id number] documented as of this encounter Goals Goal [...] goal at outreach telephone calls from the [facility] team Discussed 12/28/22 documented as of this encounter Procedures Procedure Name Priority Date/Time Associated Diagnosis Comments N TERMINAL PRO BNP OUTPATIENT STAT 09/16/2022 9:35 AM CDT NAVAS (dyspnea on exertion) COMPREHENSIVE METABOLIC PANEL STAT 09/16/2022 9:35 AM CDT NAVAS (dyspnea on exertion) CBC WITH PLATELETS STAT 09/16/2022 9: 35 AM CDT NAVAS (dyspnea on exertion) EKG 12-LEAD, TRACING ONLY Routine 09/16/2022 8:43 AM CDT NAVAS (dyspnea on exertion) documented in this encounter Results * NM Lexiscan stress test (09/23/2022 10:27 AM CDT) [facility] Pharmacologic Protocol Lexiscan CARDIOLOGY RESULTS Test Type [...] wall motion is normal. Onesimo Bruno MD IMG NM ORDERABLES * HOLTER MONITOR 24 HOUR APPLICATION SCAN ANALYSIS AND PROVIDER INTERPRETATION (09/22/2022 1:08 PM CDT) Anatomical Region Laterality Modality Ultrasound, Othe r 09/22/2022 9:53 AM CDT Onesimo Bruno MD CV CARDIAC SERVICES ORDERABLES * XR Chest 2 Views (09/16/2022 9:49 AM CDT) Anatomical Region Laterality Modality Chest Computed Radiogr aphy 09/16/2022 9:49 AM CDT Impressions 09/16/2022 10:10 AM CDT IMPRESSION: Negative chest. Narrative 09/16/2022 10:10 AM CDT EXAM: XR CHEST 2 VIEWS LOCATION: [facility] DATE: 09/16/2022 INDICATION: ??NAVAS (dyspnea on exertion) COMPARISON: 10/07/20 Procedure Note Lester Don DO - 09/16/2022 EXAM: XR CHEST 2 VIEWS LOCATION: [facility] DATE: 09/16/2022 INDICATION: NAVAS (dyspnea on exertion) COMPARISON: 10/07/20 IMPRESSION: Negative chest. Onesimo Bruno MD IMG DIAGNOSTIC IMAGI NG ORDERABLES * BNP-N terminal pro (09/16/2022 9:35 AM CDT) N Terminal Pro BNP Outpatient 109 0 - 900 pg/mL 09/16/2022 10:59 AM CDT [facility] Comment: Reference range shown and results flagged as abnormal are for the outpatient, non acute settings. Establishing a baseline value for each individual patient is useful for follow-up. Suggested inpatient cut points for confirming diagnosis of CHF in an acute setting are: >450 pg/mL (age 18 to less than 50) >900 pg/mL (age 50 to less than 75) >1800 pg/mL (75 yrs and older) An inpatient or emergency department NT-proPBNP <300 pg/mL effectively rules out acute CHF, with 99% negative predictive value. Blood BLOOD SPECIMEN / Unknown Venipuncture / Unknown 09/16/2022 9:35 AM CDT 09/16/2022 9:35 AM CDT Onesimo Bruno MD LAB - BLOOD ORDERABL ES [facility] Core Lab [address] [facility], [address] [place] [address], [facility] [phone] * CBC with platelets (09/16/2022 9:35 AM CDT) WBC Count 5.5 4.0 - 11.0 10e3/uL 09/16/2022 9:42 AM CDT [facility] RBC Count 4.77 4.40 - 5.90 10e6/uL 09/16/2022 9:42 AM CDT [facility] Hemoglobin 14.7 13.3 - 17.7 g/dL 09/16/2022 9:42 AM CDT [facility] Hematocrit 44.4 40.0 - 53.0 % 09/16/2022 9:42 AM CDT [facility] MCV 93 78 - 100 fL 09/16/2022 9:42 AM CDT [facility] MCH 30.8 26.5 - 33.0 pg 09/16/2022 9:42 AM CDT [facility] MCHC 33.1 31.5 - 36.5 g/dL 09/16/2022 9:42 AM CDT [facility] RDW 13.4 10.0 - 15.0 % 09/16/2022 9:42 AM CDT [facility] Platelet Count 157 150 - 450 10e3/uL 09/16/2022 9:42 AM CDT [facility] Blood BLOOD SPECIMEN / Unknown Venipuncture / Unknown 09/16/2022 9:35 AM CDT 09/16/2022 9:35 AM CDT Onesimo Bruno MD LAB - BLOOD ORDERABL ES Performing Organization Address [facility]/State/ZIP Co de Phone Number [facility] [address] * (ABNORMAL) Comprehensive metabolic panel (BMP + Alb, Alk Phos, ALT, AST, Total. Bili, TP) (09/16/2022 9:35 AM CDT) Sodium 138 136 - 145 mmol/L 09/16/2022 10:59 AM CDT [facility] Potassium 4.1 3.4 - 5.3 mmol/L 09/16/2022 10:59 AM CDT [facility] Chloride 101 98 - 107 mmol/L 09/16/2022 10:59 AM CDT [facility] Carbon Dioxide (CO2) 25 22 - 29 mmol/L 09/16/2022 10:59 AM CDT [facility] Anion Gap 12 7 - 15 mmol/L 09/16/2022 10:59 AM CDT [facility] Urea Nitrogen 18.7 8.0 - 23.0 mg/dL 09/16/2022 10:59 AM CDT [facility] Creatinine 1.29(H) 0.67 - 1.17 mg/dL 09/16/2022 10:59 AM CDT [facility] Calcium 8.9 8.8 - 10.2 mg/dL 09/16/2022 10:59 AM CDT [facility] Glucose 117(H) 70 - 99 mg/dL 09/16/2022 10:59 AM CDT [facility] Alkaline Phosphatase 55 40 - 129 U/L 09/16/2022 10:59 AM CDT [facility] AST 33 0 - 45 U/L 09/16/2022 10:59 AM CDT [facility] Comment:Reference intervals for this test were updated on 07/26/2022 to more accurately reflect our healthy population. There may be differences in the flagging of prior results with similar values performed with this method. Interpretation of those prior results can be made in the context of the updated reference intervals. ALT 50 0 - 70 U/L 09/16/2022 10:59 AM CDT [facility] Comment:Reference intervals for this test were updated on 07/26/2022 to more accurately reflect our healthy population. There may be differences in the flagging of prior results with similar values performed with this method. Interpretation of those prior results can be made in the context of the updated reference intervals. Protein Total 6.4 6.4 - 8.3 g/dL 09/16/2022 10:59 AM CDT [facility] Albumin 4.0 3.5 - 5.2 g/dL 09/16/2022 10:59 AM CDT [facility] Bilirubin Total 0.7 <=1.2 mg/dL 09/16/2022 10:59 AM CDT [facility] GFR Estimate 60(L) >60 mL/min/1. 73m2 09/16/2022 10:59 AM CDT [facility] Blood BLOOD SPECIMEN / Unknown Venipuncture / Unknown 09/16/2022 9:35 AM CDT 09/16/2022 9:35 AM CDT Onesimo Bruno MD LAB - BLOOD ORDERABL ES [facility] Core Lab [address] [facility], [address] [place] [address], [facility] [phone] * EKG 12-lead, tracing only (09/16/2022 8:43 AM CDT) Systolic Blood Pressure mmHg RADIOLOGY RESULTS Diastolic Blood Pressure mmHg RADIOLOGY RESULTS Ventricular Rate 80 BPM RAD IOLOGY RESULTS Atrial Rate 80 BPM RADIOLOG Y RESULTS MO Interval 156 ms RADIOLOG Y RESULTS QRS Duration 90 ms RADIOLO GY RESULTS QT 358 ms RADIOLOGY RESULTS QTc 412 ms RADIOLOGY RESULTS P Gila 18 degrees RADIOLOGY RESULTS R AXIS 53 degrees RADIOLOGY RESULTS T Gila 40 degrees RADIOLOGY RESULTS Interpretation ECG Sinus rhythm with occasional Premature ventricular complexes Otherwise normal ECG When compared with ECG of 16-JUL-2021 15:25, Premature ventricular complexes are now Present Confirmed by WHITE ??TIESHA SALGUERO LOC:JN ([id number]) on 09/16/2022 4:33:48 PM RADIOLOGY RESULTS 09/16/2022 8:43 AM CDT 09/16/2022 4:33 PM CDT Onesimo Bruno MD ECG ORDERABLES RADIOLOGY RESULTS documented in this encounter Visit Diagnoses Diagnosis NAVAS (dyspnea on exertion)- Primary Other dyspnea and respiratory abnormality Bilateral pulmonary embolism (H) Other pulmonary embolism and infarction Morbid obesity (H) Morbid obesity Atherosclerosis of [place] coronary artery of [place] heart, unspecified whether angina present Moderate persistent asthma without complication Unspecified asthma Palpitations NAVAS (dyspnea on exertion) Other dyspnea and respiratory abnormality NAVAS (dyspnea on exertion) Other dyspnea and respiratory abnormality documented in this encounter Additional Health Concerns Problem Noted Date Diagnosed Date HP GENERAL PROBLEM 11/13/2021 Assessment Noted Time PHQ-9 Depression Total Score: 8 04/16/19 23 9:42 AM CATH LABORATORY TECHNICIAN documented as of this encounter Care Teams Maintenance Technician 3Rd Shift Relationship Specialty Start Date End Date Onesimo Bruno MD PCP - General 08/11/06 Bhavna Mac, GenesisD [address] [place] [address] Pharmacist Pharmacist 07/11/18 Isaac Bro, RN Lead Carbider Primary Care - CC 09/01/18 Onesimo Bruno MD [address] [place] [address] Assigned PCP 07/30/20 Nataliia Gomez MD [address] [facility], [address] [place] [address] Assigned Heart and Vascular Provider 08/29/20 10/08/22 Rafita Ayers MD [address] [place] [address] Assigned Pulmonology Provider 10/12/20 Flo Henry MD [address] [address] Assigned Behavioral Health Provider 09/21/20 Jana Vick, [facility] Community Health Worker Primary Care - CC 06/08/21 Lorri Larsen MD [address] [place] [address] Otolaryngology 07/21/21 Lorri Larsen MD [address] [place] [address] Assigned Surgical Provider 10/10/21 Rafita Ayers MD [address] [place] [address] Critical Care 11/30/21 Kaelyn New AuD [address] [place] [address] Human Resources Generalist Audiology 12/09/21 documented as of this encounter
--- OUTSIDE RECORDS SUMMARY | 2023-02-27 14:29 | XMS_ITS | Encounter Summary ---
Author Name Unknown Organization [facility] Address [address] [place] [address] Care Team Providers Care Operations Intern Name Role Phone Onesimo Bruno MD Primary Care Provider Bhavna Mac PharmD Unavailable Isaac Bro RN Unavailable Unavailable Onesimo Bruno MD Unavailable [phone] Nataliia Gomez MD Unavailable Rafita Ayers MD Unavailable [phone] Flo Henry MD Unavailable [phone] Jana Vick CHW Unavailable UnavailLorri Ulloa MD Unavailable [phone] Lorri Larsen MD Unavailable [phone] Rafita Ayers MD Unavailable [phone] Kaelyn New Unavailable [phone] Reason for Visit * Reason Onset Date Comments Medication Question 09/09/2022 Reference Encounter Details Date Type Department Care Team (Late st Contact Info) Description 09/09/2022 Telephone [facility] Neurology Clinic [place] [id number] [place] [phone] Flo Henry MD [address] [id number] Medication Question (Reference ) Social History Tobacco Use Types Packs/Day Years [...] encounter Miscellaneous Notes * Telephone Encounter - Shay Mason RN - 09/09/2022 11:57 AM CDT Called and clarified Rx's with pharmacist, verbally conveying MD's most recent encounter notation and updated Rx's. Per 06/22 OV notation: We discussed some treatment options and have elected to increase his Effexor XR to 225 mg a day. Pharmacy updated script. Shay Mason RN, BSN [facility] Neurology * Telephone Encounter - Nohemi Kate - 09/09/2022 9:51 AM CDT [facility] Phone Message May a detailed message be left on voicemail: yes Reason for Call: Medication Question or concern regarding medication Prescription Clarification Name of Medication: Venlafaxine XR 150 mg and 75 mg Prescribing Provider: [facility] Pharmacy: [facility] What on the order needs clarification? Directions need to be clarified with pharmacy. Please call pharmacy Reference # [id number] Action Taken: [facility] Travel Screening: Not Applicable documented in this encounter Plan of Treatment Upcoming Encounters Date Type Department Care Team (Late st Contact Info) Description 04/04/2023 1:00 PM LADLE OPERATOR Virtual Visit [facility] Surgery Clinic and Bariatrics Care [address] [place] [address] Keke Brooks, RD [address] [place] [address] documented as of this encounter Goals Goal [...] will look into working with a personal vehicle advisor to assist me with resistance training. 5. I will report progress towards this goal at outreach telephone calls from the [facility] team Discussed 12/28/22 documented as of this encounter Visit Diagnoses Not on filedocumented in this encounter Additional Health Concerns Problem Noted Date Diagnosed Date HP GENERAL PROBLEM 11/13/2021 Assessment Noted Time PHQ-9 Depression Total Score: 8 04/16/19 23 9:42 AM LADLE OPERATOR documented as of this encounter Care Teams Operations Intern Relationship Specialty Start Date End Date Onesimo Bruno MD PCP - General 08/11/06 Bhavna Mac, GenesisD [address] [place] [address] Pharmacist Pharmacist 07/11/18 Isaac Bro, RN Lead Cigarette Packing Machine Operator Primary Care - CC 09/01/18 Onesimo Bruno MD [address]0 [place] [address] Assigned PCP 07/30/20 Nataliia Gomez MD [address] [facility], [address] [place] [address] Assigned Heart and Vascular Provider 08/29/20 10/08/22 Rafita Ayers MD [address] [place] [address] Assigned Pulmonology Provider 10/12/20 Flo Henry MD 1875 [facility] [address] [place] [address] Assigned Behavioral Health Provider 09/21/20 Jana Vick W Community Health Worker Primary Care - CC 06/08/21 Lorri Larsen MD [address] [place] [address] Otolaryngology 07/21/21 Lorri Larsen MD [address] [place] [address] Assigned Surgical Provider 10/10/21 Rafita Ayers MD [address] [place] [address] Critical Care 11/30/21 Kaelyn New, [place]5 [place] [address] Machine Bander And Cellophaner Helper Audiology 12/09/21 documented as of this encounter
--- OUTSIDE RECORDS SUMMARY | 2023-02-27 14:29 | XMS_ITS | Encounter Summary ---
Author Name Unknown Organization [place] Address [address] [place] [address] Care Team Providers Care Medical Cost Consultant Name Role Phone Onesimo Bruno MD Primary Care Provider [phone] Bhavna Mac PharmD Unavailable [phone] Isaac Bro RN Unavailable Unavailable Onesimo Bruno MD Unavailable [phone] Nataliia Gomez MD Unavailable Rafita Ayers MD Unavailable [phone] Flo Henry MD Unavailable [phone] Jana Vick CHW Unavailable UnavailLorri Ulloa MD Unavailable [phone] Lorri Larsen MD Unavailable [phone] Rafita Ayers MD Unavailable [phone] Kaelyn New Unavailable [phone] Reason for Visit * Reason Onset Date Comments Appointment 09/06/2022 Encounter Details Date Type Department Care Team (Late st Contact Info) Description 09/06/2022 Telephone [facility] Neurology Clinic [place] [address] [place] [phone] Flo Henry MD [address] [phone] Appointment Social History Tobacco Use Types Packs/Day Years [...] Encounter - Delfina Dailey MA - 09/06/2022 7:29 AM CDT Please call Pt to schedule for next available follow up visit with Dr. Henry. Thank you, Delfina Dailey MA on 09/06/2022 at 7:31 AM documented in this encounter Plan of Treatment Upcoming Encounters Date Type Department Care Team (Late st Contact Info) Description 04/04/2023 1:00 PM ELEMENTARY SCHOOL REGISTRAR Virtual Visit [facility] Surgery Clinic and Bariatrics Care [address] [place] [address] Keke Brooks, RD 420 [facility] 84 [place] [address] documented as of this encounter Goals Goal [...] look into working with a personal care attendant to assist me with resistance training. 5. I will report progress towards this goal at outreach telephone calls from the [facility] team Discussed 12/28/22 documented as of this encounter Visit Diagnoses Not on filedocumented in this encounter Additional Health Concerns Problem Noted Date Diagnosed Date HP GENERAL PROBLEM 11/13/2021 Assessment Noted Time PHQ-9 Depression Total Score: 8 04/16/19 9:42 AM ELEMENTARY SCHOOL REGISTRAR documented as of this encounter Care Teams Medical Cost Consultant Relationship Specialty Start Date End Date Onesimo Bruno MD PCP - General 08/11/06 Bhavna Mac, GenesisD [address]70 [place] [address] Pharmacist Pharmacist 07/11/18 Isaac Bro, RN Lead Aircraft Mechanic Electrical And Radio Primary Care - CC 09/01/18 Onesimo Bruno MD 1390 [place] [address] Assigned PCP 07/30/20 Nataliia Gomez MD [address] [facility], [address] [place] [address] Assigned Heart and Vascular Provider 08/29/20 10/08/22 Rafita Ayers MD 909 [place] [address] Assigned Pulmonology Provider 10/12/20 Flo Henry MD [facility] [address] [address] Assigned Behavioral Health Provider 09/21/20 Jana Vick, W Community Health Worker Primary Care - CC 06/08/21 Lorri Larsen MD [address] [place] [address] Otolaryngology 07/21/21 Lorri Larsen MD [address] [place] [address] Assigned Surgical Provider 10/10/21 Rafita Ayers MD [address] [place] [address] Critical Care 11/30/21 Kaelyn New, [place] [address] [place] [address] Project Account Manager Audiology 12/09/21 documented as of this encounter
--- OUTSIDE RECORDS SUMMARY | 2023-02-27 14:29 | XMS_ITS | Encounter Summary ---
Author Name Unknown Organization [facility] Address [address] [place] [address] Care Team Providers Care Shuttle Operator Name Role Phone Onesimo Bruno MD Primary Care Provider [phone] Bhavna Mac PharmD Unavailable Isaac Bro RN Unavailable Unavailable Onesimo Bruno MD Unavailable [phone] Nataliia Gomez MD Unavailable Rafita Ayers MD Unavailable [phone] Flo Henry MD Unavailable [phone] Jana Vick W Unavailable UnavailLorri Ulloa MD Unavailable Lorri Larsen MD Unavailable [phone] Rafita Ayers MD Unavailable [phone] Kaelyn New Unavailable [phone] Reason for Visit * Diagnostic Imaging XR (Routine) - Pending Review Specialty Diagnoses / Procedures Referred By Controsa t Referred To Contact Radiology. Diagnoses NAVAS (dyspnea on exertion) Procedures XR Chest 2 Views Onesimo Bruno MD 1390 [place] [address] Referral ID Status Reason Start Date Expiration Date V isits Requested Visits Authorized [id number] Pending Review 09/16/2022 09/16/2023 1 1 Encounter Details Date Type Department Care Team (Late st Contact Info) Description 09/16/2022 9:40 AM CDT Ancillary Procedure [facility] 139[address] [place] [address] Onesimo Bruno MD [address] [place] [address] NAVAS (dyspnea on exertion) Social History Tobacco Use Types Packs/Day Years [...] Encounters Date Type Department Care Team (Late Contact Info) Description 04/04/2023 1:00 PM BLOW MOLD OPERATOR Virtual Visit [facility] Surgery Clinic and Bariatrics Care [address] 200 [place] [address] Keke Brooks, RD 420 [facility] 84 [place] [address] documented as of this encounter Goals Goal [...] look into working with a personal development coach to assist me with resistance training. 5. I will report progress towards this goal at outreach telephone calls from the [facility] team Discussed 12/28/22 documented as of this encounter Procedures Procedure Name Priority Date/Time Associated Diagnosis Comments XR CHEST 2 VIEWS Routine 09/16/2022 9:49 AM CDT NAVAS (dyspnea on exertion) documented in this encounter Results * XR Chest 2 Views (09/16/2022 9:49 AM CDT) Anatomical Region Laterality Modality Chest Computed Radiogr aphy 09/16/2022 9:49 AM CDT Impressions 09/16/2022 10:10 AM CDT IMPRESSION: Negative chest. Narrative 09/16/2022 10:10 AM CDT EXAM: XR CHEST 2 VIEWS LOCATION: [facility] DATE: 09/16/2022 INDICATION: ??NAVAS (dyspnea on exertion) COMPARISON: 10/07/20 Procedure Note Lester Don DO - 09/16/2022 EXAM: XR CHEST 2 VIEWS LOCATION: [facility] DATE: 09/16/2022 INDICATION: NAVAS (dyspnea on exertion) COMPARISON: 10/07/20 IMPRESSION: Negative chest. Onesimo Bruno MD IMG DIAGNOSTIC IMAGI NG ORDERABLES documented in this encounter Visit Diagnoses Diagnosis NAVAS (dyspnea on exertion) Other dyspnea and respiratory abnormality documented in this encounter Additional Health Concerns Problem Noted Date Diagnosed Date HP GENERAL PROBLEM 11/13/2021 Assessment Noted Time PHQ-9 Depression Total Score: 8 04/16/19 23 9:42 AM BLOW MOLD OPERATOR documented as of this encounter Care Teams Shuttle Operator Relationship Specialty Start Date End Date Onesimo Bruno MD PCP - General 08/11/06 Bhavna Mac, PharmD [address]70 [place] [address] Pharmacist Pharmacist 07/11/18 Isaac Bro, RN Lead Production Planning Manager Primary Care - CC 09/01/18 Onesimo Bruno MD [address] [place] [address] Assigned PCP 07/30/20 Nataliia Gomez MD [address] [place] [address], [address] [place] [address] Assigned Heart and Vascular Provider 08/29/20 10/08/22 Rafita Ayers MD [address] [place] [address] Assigned Pulmonology Provider 10/12/20 Flo Henry MD [address] [place] [address] Assigned Behavioral Health Provider 09/21/20 Jana Vick W Community Health Worker Primary Care - CC 06/08/21 Lorri Larsen MD [address] [place] [address] Otolaryngology 07/21/21 Lorri Larsen MD [address] [place] [address] Assigned Surgical Provider 10/10/21 Rafita Ayers MD [address] [place] [address] Critical Care 11/30/21 Kaelyn New AuD [address] [place] [address] Licensed Aircraft Maintenance Engineer Audiology 12/09/21 documented as of this encounter
--- OUTSIDE RECORDS SUMMARY | 2023-02-27 14:29 | XMS_ITS | Encounter Summary ---
Author Name Unknown Organization [facility] Address [address] [place] [address] Care Team Providers Care Imcu Nurse Name Role Phone Onesimo Bruno MD Primary Care Provider [phone] Bhavna Mac PharmD Unavailable Isaac Bro RN Unavailable Unavailable Onesimo Bruno MD Unavailable [phone] Nataliia Gomez MD Unavailable Rafita Ayers MD Unavailable Flo Henry MD Unavailable [phone] Jana Vick W Unavailable UnavailLorri Ulloa MD Unavailable [phone] Lorri Larsen MD Unavailable [phone] Rafita Ayers MD Unavailable [phone] Kaelyn New Unavailable [phone] Reason for Visit * Reason Comments Medication Refill Encounter Details Date Type Department Care Team (Late st Contact Info) Description 09/16/2022 Refill [facility] 1390 [place] [phone] Onesimo Bruno MD [address]0 [place], [place] [phone] Medication Refill Social History Tobacco Use Types [...] AM CDT documented as of this encounter Miscellaneous Notes * Telephone Encounter - Sirisha Scott RN - 09/16/2022 9:19 PM CDT Last Written Prescription Date: 09/10/21 Last Fill Quantity: 90, # refills: 3 Last office visit provider: 09/16/22 Requested Prescriptions Pending Prescriptions Disp Refills tamsulosin (FLOMAX) 0.4 MG capsule [Pharmacy Med Name: Tamsulosin HCl 0.4 MG Oral Capsule] 90 capsule 3 Sig: TAKE 1 CAPSULE BY MOUTH DAILY AFTER SUPPER Alpha Blockers Passed - 09/16/2022 9:09 PM Passed - Blood pressure under 140/90 in past 12 months BP Readings from Last 3 Encounters: 09/16/22 118/60 07/21/22 135/82 03/18/22 118/64 Passed - Recent (12 mo) or future (30 days) visit within the authorizing provider's specialty Patient has had an office visit with the authorizing provider or a provider within the authorizing providers department within the previous 12 mos or has a future within next 30 days. See Patient Info tab in inbasket, or Choose Columns in Meds & Orders section of the refill encounter. Passed - Patient does not have Tadalafil, Vardenafil, or Sildenafil on their medication list Passed - Medication is active on med list Passed - Patient is 18 years of age or older Sirisha Scott RN 09/16/22 9:19 PM documented in this encounter Plan of Treatment Upcoming Encounters Date Type Department Care Team (Late st Contact Info) Description 04/04/2023 1:00 PM ECOMMERCE MARKETING SPECIALIST Virtual Visit [facility] Surgery Clinic and Bariatrics Care [address] [place] [address] Keke Brooks, RD 420 [facility] 84 [place] [address] documented as of this encounter Goals Goal [...] I will look into working with a hop trainer to assist me with resistance training. 5. I will report progress towards this goal at outreach telephone calls from the [facility] team Discussed 12/28/22 documented as of this encounter Visit Diagnoses Diagnosis Urinary retention Retention of urine, unspecified documented in this encounter Additional Health Concerns Problem Noted Date Diagnosed Date HP GENERAL PROBLEM 11/13/2021 Assessment Noted Time PHQ-9 Depression Total Score: 8 04/16/19 9:42 AM ECOMMERCE MARKETING SPECIALIST documented as of this encounter Care Teams Imcu Nurse Relationship Specialty Start Date End Date Onesimo Bruno MD PCP - General 08/11/06 Bhavna Mac PharmD 870 [place] [address] Pharmacist Pharmacist 07/11/18 Isaac Bro, RN Lead Information Clerk Cashier Primary Care - CC 09/01/18 Onesimo Bruno MD [address]0 [place] [address] Assigned PCP 07/30/20 Nataliia Gomez MD 1600 [facility], [address] [place] [address] Assigned Heart and Vascular Provider 08/29/20 10/08/22 Rafita Ayers MD [address] [place] [address] Assigned Pulmonology Provider 10/12/20 Flo Henry MD [facility] [address] [address] Assigned Behavioral Health Provider 09/21/20 Jana Vick W Community Health Worker Primary Care - CC 06/08/21 Lorri Larsen MD [address] [place] [address] Otolaryngology 07/21/21 Lorri Larsen MD [address] [place] [address] Assigned Surgical Provider 10/10/21 Rafita Ayers MD [address] [place] [address] Critical Care 11/30/21 Kaelyn New AuD [address] [place] [address] Art Teacher Audiology 12/09/21 documented as of this encounter
--- OUTSIDE RECORDS SUMMARY | 2023-02-27 14:29 | XMS_ITS | Encounter Summary ---
Author Name Unknown Organization [place] Address [address] [place] [address] Care Team Providers Care Jr. Java Developer Name Role Phone Onesimo Bruno MD Primary Care Provider [phone] Bhavna Mac PharmD Unavailable Isaac Bro RN Unavailable Unavailable Onesimo Bruno MD Unavailable [phone] Nataliia Gomez MD Unavailable Rafita Ayers MD Unavailable [phone] Flo Henry MD Unavailable [phone] Jana Vick W Unavailable UnavailLorri Ulloa MD Unavailable [phone] Lorri Larsen MD Unavailable [phone] Rafita Ayers MD Unavailable [phone] Kaelyn New Unavailable Reason for Visit * Diagnostic Imaging NM (Routine) - Authorized Specialty Diagnoses / Procedures Referred By Contac t Referred To Contact Cardiology Diagnoses NAVAS (dyspnea on exertion) Procedures NM Lexiscan stress test Onesimo Bruno MD [address]0 [place] [address] Sjn Cardiac Testing [address] [place] [phone] Referral ID Status Reason Start Date Expiration Date V isits Requested Visits Authorized [id number] Authorized 09/16/2022 09/16/2023 5 5 Encounter Details Date Type Department Care Team (Late st Contact Info) Description 09/22/2022 10:15 AM CDT - 09/22/2022 11:59 PM CDT Hospital Encounter 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 5. I will report progress towards this goal at outreach telephone calls from the [facility] team Discussed 12/28/22 documented as of this [...] Action Date Dose Rate Site technetium sestamibi 1 UD per study (Tc99m MiBi) radioisotope injection 40-50 millicurie 40-50 millicurie, Intravenous, ONCE, On Tue09/22/22 at 1030, For 1 dose, Radioisotope, supplied by and administered by Nuclear Medicine. *HW* $Given 09/22/2022 10:29 AM CDT 46.1 millicuries documented in this encounter Additional Health Concerns Problem Noted Date Diagnosed Date HP GENERAL PROBLEM 11/13/2021 Assessment Noted Time PHQ-9 Depression Total Score: 8 04/16/19 23 9:42 AM BRAKE REPAIR MECHANIC documented as of this encounter Care Teams Jr. Java Developer Relationship Specialty Start Date End Date Onesimo Bruno MD PCP - General 08/11/06 Bhavna Mac, PharmD [address] [place] [address] Pharmacist Pharmacist 07/11/18 Isaac Bro, RN Lead Dental Hygiene Professor Primary Care - CC 09/01/18 Onesimo Bruno MD [address]0 [place] [address] Assigned PCP 07/30/20 Nataliia Gomez MD [address] [facility], [address] [place], [place] [address] Assigned Heart and Vascular Provider 08/29/20 10/08/22 Rafita Ayers MD [address] [place] [address] Assigned Pulmonology Provider 10/12/20 Flo Henry MD [address] [id number] Assigned Behavioral Health Provider 09/21/20 Jana Vick, W Community Health Worker Primary Care - CC 06/08/21 Lorri Larsen MD [address] [place] [address] Otolaryngology 07/21/21 Lorri Larsen MD 9 [place] [address] Assigned Surgical Provider 10/10/21 Rafita Ayers MD [address] [place] [address] Critical Care 11/30/21 Kaelyn New AuD [address] [place] [address] Biofuels Manager Audiology 12/09/21 documented as of this encounter
--- OUTSIDE RECORDS SUMMARY | 2023-02-27 14:29 | XMS_ITS | Encounter Summary ---
Author Name Unknown Organization [facility] Address [address] [place] [address] Care Team Providers Care Summons Server Name Role Phone Onesimo Bruno MD Primary Care Provider Bhavna Mac PharmD Unavailable [phone] Isaac Bro RN Unavailable Unavailable Onesimo Bruno MD Unavailable [phone] Nataliia Gomez MD Unavailable Rafita Ayers MD Unavailable [phone] Flo Henry MD Unavailable [phone] Jana Vick CHW Unavailable Unavailabl e Lorri Larsen MD Unavailable [phone] Lorri Larsen MD Unavailable [phone] Rafita Ayers MD Unavailable [phone] Kaelyn New Unavailable [phone] Encounter Details Date Type Department Care Team (Late st Contact Info) Description 08/09/2022 Telephone M [facility] Care [address] 200 [place] [address] Keke Brooks, RD 420 [facility] 84 [place] [address] Social History Tobacco Use Types Packs/Day [...] suspected to have Coronavirus/COVID-19? No / Unsure 07/21/2022 11:37 AM CDT documented as of this encounter Miscellaneous Notes * Telephone Encounter - Keke Brooks RD - 08/09/2022 9:47 AM CDT Attempts made to contact patient in regards to video visit that was scheduled for today with this global technical writer at 9:30 am. Patient did not link onto video visit nor answer the phone with attempts made, therefore left patient a detailed message including call center contact information to call and reschedule this appointment at his earliest convenience. documented in this encounter Plan of Treatment Upcoming Encounters Date Type Department Care Team (Late st Contact Info) Description 04/04/2023 1:00 PM LOW VOLTAGE ELECTRICIAN Virtual Visit [facility] Surgery Clinic and Bariatrics Care [address] [address] [place] [phone] documented as of this encounter Goals Goal [...] will look into working with a personal investment adviser to assist me with resistance training. 5. I will report progress towards this goal at outreach telephone calls from the [facility] team Discussed 12/28/22 documented as of this encounter Visit Diagnoses Not on filedocumented in this encounter Additional Health Concerns Problem Noted Date Diagnosed Date HP GENERAL PROBLEM 11/13/2021 Assessment Noted Time PHQ-9 Depression Total Score: 8 04/16/19 23 9:42 AM LOW VOLTAGE ELECTRICIAN documented as of this encounter Care Teams Summons Server Relationship Specialty Start Date End Date Onesimo Bruno MD PCP - General 08/11/06 Bhavna Mac, GenesisD [address] [place] [address] Pharmacist Pharmacist 07/11/18 Isaac Bro, RN Lead Guest Room Inspector Primary Care - CC 09/01/18 Onesimo Bruno MD [address]0 [place] [address] Assigned PCP 07/30/20 Nataliia Gomez MD 1600 [facility], [address] [place] [address] Assigned Heart and Vascular Provider 08/29/20 10/08/22 Rafita Ayers MD 909 [place] [address] Assigned Pulmonology Provider 10/12/20 Flo Henry MD [address] [address] Assigned Behavioral Health Provider 09/21/20 Jana Vick W Community Health Worker Primary Care - CC 06/08/21 Lorri Larsen MD [address] [place] [address] Otolaryngology 07/21/21 Lorri Larsen MD [address] [place] [address] Assigned Surgical Provider 10/10/21 Rafita Ayers MD [address] [place] [address] Critical Care 11/30/21 Kaelyn New, Shena [facility]5 [place] [address] Livestock Trader Audiology 12/09/21 documented as of this encounter
--- OUTSIDE RECORDS SUMMARY | 2023-02-27 14:29 | XMS_ITS | Encounter Summary ---
Author Name Unknown Organization [facility] Address [address] [place] [address] Care Team Providers Care Alcohol Rubber Name Role Phone Onesimo Bruno MD Primary Care Provider [phone] Bhavna Mac PharmD Unavailable Isaac Bro RN Unavailable Unavailable Onesimo Bruno MD Unavailable [phone] Nataliia Gomez MD Unavailable Rafita Ayers MD Unavailable [phone] Flo Henry MD Unavailable [phone] Jana Vick W Unavailable UnavailLorri Ulloa MD Unavailable [phone] Lorri Larsen MD Unavailable [phone] Rafita Ayers MD Unavailable [phone] Kaelyn New Unavailable [phone] Reason for Visit * Diagnostic Imaging NM (Routine) - Authorized Specialty Diagnoses / Procedures Referred By Contac t Referred To Contact Cardiology Diagnoses NAVAS (dyspnea on exertion) Procedures NM Lexiscan stress test Onesimo Bruno MD [address] [place] [address] Sjn Cardiac Testing [address] [place] [id number] Referral ID Status Reason Start Date Expiration Date V isits Requested Visits Authorized [id number] Authorized 09/16/2022 09/16/2023 5 5 Encounter Details Date Type Department Care Team (Late st Contact Info) Description 09/22/2022 8:15 AM CDT - 09/22/2022 9:25 AM CDT Hospital Encounter [address] [address] Onesimo Bruno MD [address] [place] [id number] NAVAS (dyspnea on exertion) Discharge Disposition: Home or Self Care Social [...] (NITROSTAT) 0.4 MG SL tabletIndications:Athe rosclerosis of [place] coronary artery of [place] heart without angina pectoris [NITROGLYCERIN (NITROSTAT) 0.4 MG SL TABLET] PLACE 1 TABLET UNDER DONALDO TONGUE EVERY 5 MINUTES NEEDED FOR CHEST PAIN. 25 tablet 5 06/09/2020 Austin-3 Fatty Acids (FISH OIL OMEGA-3 PO) Take [...] 50 MG 24 hr tabletIndications:Athe rosclerosis of [place] coronary artery of [place] heart without angina pectoris Take 1 tablet [...] rosuvastatin (CRESTOR) 40 MG tabletIndications:Athe rosclerosis of [place] coronary artery of [place] heart without angina pectoris [ROSUVASTATIN (CRESTOR) 40 [...] Upcoming Encounters Date Type Department Care Team (Thaddeus lizama Contact Info) Description 04/04/2023 1:00 PM DIRECTOR INVESTMENT BANKING Virtual Visit [facility] Surgery Clinic and Bariatrics Care [address] 200 [place] [phone] Keke Brooks, RD 420 [facility] 84 [place] [address] documented as of this encounter Goals Goal [...] goal at outreach telephone calls from the [facility] team Discussed 12/28/22 documented as of this encounter Procedures Procedure Name Priority Date/Time Associated Diagnosis Comments NM MPI WITH LEXISCAN STAT 09/23/2022 10:27 AM CDT NAVAS (dyspnea on exertion) documented in this encounter Results * NM Lexiscan stress test (09/23/2022 10:27 AM CDT) [facility] Pharmacologic Protocol Lexiscan CARDIOLOGY RESULTS Test [...] wall motion is normal. Onesimo Bruno MD [facility] [place] ORDERABLES documented in this encounter Visit Diagnoses Diagnosis NAVAS (dyspnea on exertion) Other dyspnea and respiratory abnormality documented in this encounter Administered Medications Inactive Administered Medications - up to 3 most recent administrations Medication Order MAR Action Action Date Dose Rate Site regadenoson (LEXISCAN) injection 0.4 mg 0.4 mg, Intravenous, ONCE, On Tue09/22/22 at 0930, For 1 dose, Give by rapid IV injection (approximately over 10-15 seconds). Follow with a saline flush immediately after regadenoson administration, then follow with radioactive tracer (radiopharmaceutical agent). $Given 09/22/2022 9:35 AM CDT 0.4 mg documented in this encounter Additional Health Concerns Problem Noted Date Diagnosed Date HP GENERAL PROBLEM 11/13/2021 Assessment Noted Time PHQ-9 Depression Total Score: 8 04/16/19 9:42 AM DIRECTOR INVESTMENT BANKING documented as of this encounter Care Teams Alcohol Rubber Relationship Specialty Start Date End Date Onesimo Bruno MD PCP - General 08/11/06 Bhavna Mac, GenesisD [address] [place] [address] Pharmacist Pharmacist 07/11/18 Isaac Bro, RN Lead Fur Sewer Primary Care - CC 09/01/18 Onesimo Bruno MD [address] [place] [address] Assigned PCP 07/30/20 Nataliia Gomez MD 1600 [facility], [address] [place] [address] Assigned Heart and Vascular Provider 08/29/20 10/08/22 Rafita Ayers MD [address] [place] [id number] Assigned Pulmonology Provider 10/12/20 Flo Henry MD [facility] [address] Assigned Behavioral Health Provider 09/21/20 Jana Vick, W Community Health Worker Primary Care - CC 06/08/21 Lorri Larsen MD [address] [place] [address] Otolaryngology 07/21/21 Lorri Larsen MD 9 [place], [place] [address] Assigned Surgical Provider 10/10/21 Rafita Ayers MD [address] [place] [address] [id number] Critical Care 11/30/21 Kaelyn New AuD [address] [place] [address] [id number] Borematic Operator Audiology 12/09/21 documented as of this encounter
--- OUTSIDE RECORDS SUMMARY | 2023-02-27 14:29 | XMS_ITS | Encounter Summary ---
Author Name Unknown Organization [facility] Address [address] [place] [address] Care Team Providers Care Senior Relationship Manager Name Role Phone Onesimo Bruno MD Primary Care Provider [phone] Bhavna Mac PharmD Unavailable [phone] Isaac Bro RN Unavailable Unavailable Onesimo Bruno MD Unavailable [phone] Nataliia Gomez MD Unavailable Rafita Ayers MD Unavailable [phone] Flo Henry MD Unavailable [phone] Jana Vick CHW Unavailable UnavailLorri Ulloa MD Unavailable [phone] Lorri Larsen MD Unavailable [phone] Rafita Ayers MD Unavailable [phone] Kaelyn New Unavailable [phone] Encounter Details Date Type Department Care Team (Latest Contact Info) Description 09/16/2022 Travel Social History Tobacco Use Types Packs/Day [...] st Contact Info) Description 04/04/2023 1:00 PM ELECTRIC NEEDLE SPECIALIST Virtual Visit [facility] Surgery Clinic and Bariatrics Care [address] 200 [place] [address] Keke Brooks, RD 420 [facility] 84 [place], [place] [address] documented as of this encounter Goals Goal [...] look into working with a personal lines advisor to assist me with resistance training. 5. I will report progress towards this goal at outreach telephone calls from the [facility] team Discussed 12/28/22 documented as of this encounter Visit Diagnoses Not on filedocumented in this encounter Additional Health Concerns Problem Noted Date Diagnosed Date HP GENERAL PROBLEM 11/13/2021 Assessment Noted Time PHQ-9 Depression Total Score: 8 04/16/19 9:42 AM ELECTRIC NEEDLE SPECIALIST documented as of this encounter Care Teams Senior Relationship Manager Relationship Specialty Start Date End Date Onesimo Bruno MD PCP - General 08/11/06 Bhavna Mac, GenesisD [address]70 [place] [address] Pharmacist Pharmacist 07/11/18 Isaac Bro, RN Lead Director Oracle Database Primary Care - CC 09/01/18 Onesimo Bruno MD [address]0 [place] [address] Assigned PCP 07/30/20 Nataliia Gomez MD 1600 [facility], [address] [place] [address] Assigned Heart and Vascular Provider 08/29/20 10/08/22 Rafita Ayers MD [address] [place] [address] [phone] Assigned Pulmonology Provider 10/12/20 Flo Henry MD [address] [place] [phone] Assigned Behavioral Health Provider 09/21/20 Jana Vick W Community Health Worker Primary Care - CC 06/08/21 Lorri Larsen MD [address] [place] [address] Otolaryngology 07/21/21 Lorri Larsen MD [address] [place] [address] Assigned Surgical Provider 10/10/21 Rafita Ayers MD [address] [place] [address] Critical Care 11/30/21 Kaelyn New AuD [address] [place] [address] Cardiology Technologist Audiology 12/09/21 documented as of this encounter
--- OUTSIDE RECORDS SUMMARY | 2023-02-27 14:29 | XMS_ITS | Encounter Summary ---
Author Name Unknown Organization [facility] Address [address] [place] [address] Care Team Providers Care Game And Fish Protector Name Role Phone Onesimo Bruno MD Primary Care Provider Bhavna Mac PharmD Unavailable Isaac Bro RN Unavailable Unavailable Onesimo Bruno MD Unavailable [phone] Nataliia Gomez MD Unavailable Rafita Ayers MD Unavailable Flo Henry MD Unavailable [phone] Jana Vick CHW Unavailable UnavailLorri Ulloa MD Unavailable [phone] Lorri Larsen MD Unavailable [phone] Rafita Ayers MD Unavailable [phone] Kaelyn New Unavailable [phone] Reason for Visit * Reason Onset Date Comments Shortness of Breath 09/14/2022 Encounter Details Date Type Department Care Team (Late st Contact Info) Description 09/14/2022 [employer] 1390 [place] [phone] Onesimo Bruno MD [address] [place], [place] [id number] Shortness of Breath Social History Tobacco Use Types Packs/Day Years [...] encounter Miscellaneous Notes * Telephone Encounter - Onesimo Bruno MD - 09/14/2022 2:13 PM CDT Agree with emergency room. Thank you so very much for contacting them and triaging. * Telephone Encounter - Isaac Bro RN - 09/14/2022 1:54 PM CDT [facility] RN spoke with patient and his Cordell per their request this afternoon. Cordell reported patient's experienced labored breathing while out doing errands yesterday and while walking around theirhome. Patient said he was so tired after they got home he slept from 5 pm until this morning. He did do a neb treatment this morning and used his Ellipta inhaler. He said he felt his breathing was a l ittle better, but reported he has not been active today at all. He did check his O2 Sats while on with phone with chief underwriter at they were 93% on RA. Patient reported he has been taking all of his medications as directed including his Xarelto. Patient and Cordell agreed he should be evaluated in the ED as they both feel there has been a marked change is his breathing over the last couple of days. Patient stated he would be going to [facility] ED. Taxation Inspector will forward not to PCP. Patient said he would like to keep his appointment with PCP on 09/16/22 depending on what is found in the ED. * Telephone Encounter - Kaelyn Barajas RN - 09/14/2022 10:38 AM CDT ----- Message from Onesimo Bruno MD sent at 09/14/2022 10:06 AM CDT ----- Patient in my schedule later this week for difficulty breathing. This needs to be triaged. It looks like spoke with a nurse but there was no information about what is going on. Patient has a very complicated history with severe coronary disease and history of PE. Please find out what is going on with him currently. Thanks. documented in this encounter Plan of Treatment Upcoming Encounters Date Type Department Care Team (Late st Contact Info) Description 04/04/2023 1:00 PM INSIDE SALES Virtual Visit [facility] Surgery Clinic and Bariatrics Care [address] [place] [address] Keke Brooks, RD 420 [facility] 84 [place], [place] [phone] documented as of this encounter Goals Goal [...] I will look into working with a personalized living manager to assist me with resistance training. 5. I will report progress towards this goal at outreach telephone calls from the [facility] team Discussed 12/28/22 documented as of this encounter Visit Diagnoses Not on filedocumented in this encounter Additional Health Concerns Problem Noted Date Diagnosed Date HP GENERAL PROBLEM 11/13/2021 Assessment Noted Time PHQ-9 Depression Total Score: 8 04/16/19 9:42 AM INSIDE SALES documented as of this encounter Care Teams Game And Fish Protector Relationship Specialty Start Date End Date Onesimo Bruno MD PCP - General 08/11/06 Bhavna Mac, GenesisD [address] [place] [address] Pharmacist Pharmacist 07/11/18 Isaac Bro, RN Lead Braider Setter Primary Care - CC 09/01/18 Onesimo Bruno MD [address]0 [place] [address] Assigned PCP 07/30/20 Nataliia Gomez MD 1600 [facility], [address] [place] [address] Assigned Heart and Vascular Provider 08/29/20 10/08/22 Rafita Ayers MD [address] [place] [address] Assigned Pulmonology Provider 10/12/20 Flo Henry MD [facility] [address] Assigned Behavioral Health Provider 09/21/20 Jana Vick, W Community Health Worker Primary Care - CC 06/08/21 Lorri Larsen MD [address] [place] [address] Otolaryngology 07/21/21 Lorri Larsen MD [address] [place] [address] Assigned Surgical Provider 10/10/21 Rafita Ayers MD [address] [place] [address] Critical Care 11/30/21 Kaelyn New, Shena [address] [place] [address] Powder Room Attendant Audiology 12/09/21 documented as of this encounter
--- OUTSIDE RECORDS SUMMARY | 2023-02-27 14:30 | XMS_ITS | Encounter Summary ---
Author Name Unknown Organization [facility] Address [address] [place] [address] Care Team Providers Care Acidity Tester Name Role Phone Onesimo Bruno MD Primary Care Provider [phone] Bhavna Mac PharmD Unavailable [phone] Isaac Bro RN Unavailable Unavailable Onesimo Bruno MD Unavailable [phone] Nataliia Gomez MD Unavailable Rafita Ayers MD Unavailable [phone] Flo Henry MD Unavailable [phone] Jana Vick CHW Unavailable UnavailLorri Ulloa MD Unavailable [phone] Lorri Larsen MD Unavailable [phone] Rafita Ayers MD Unavailable [phone] Kaelyn New Unavailable [phone] Reason for Visit * Reason Comments Follow Up Follow up for bilate ral pulmonary embolism. Patient has completed cardiac rehab. CT cologram performed 05/21/22. Pt has a right eye blind spot. Being treated by Dr. George with injections. Requesting a tetnus shot. 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); Need for hdfwmmtanl-cskvett-xdo tussis (Tdap) vaccine; Prediabetes Social History Tobacco Use Types Packs/Day Years Used Date Smoking Tobacco: Never Smokeless Tobacco: Never Alcohol Use Standard Drinks/Week Comments No 0 (1 standard drink = 0.6 oz pur e alcohol) PHQ-2 Answer Date Recorded PHQ-2 Score 2 06/22/2022 Sex and Gender Information Value Date Recorded Sex Assigned at Male 05/09/2020 12:49 AM CDT Gender Identity Male 05/09/2020 12:49 AM CDT Sexual Orientation Garica 09/17/2020 11 :45 PM CDT COVID-19 Exposure Response Date Recorded In the last 10 days, have yo u been in contact with someone who was confirmed or suspected to have Coronavirus/COVID-19? No / Unsure 07/21/2022 11:37 AM CDT documented as of this encounter Last Filed Vital Signs Vital Sign Reading Time Taken Comments Blood Pressure 135/82 07/21/2022 11:42 AM CDT Pulse 81 07/21/2022 11:42 AM CDT Temperature 36.8 ??C (98.2 ??F) 07/21/2022 1 1:42 AM CDT Respiratory Rate 17 07/21/2022 11:4 2 AM CDT Oxygen Saturation 95% 07/21/2022 11: 42 AM CDT Inhaled Oxygen Concentration - - Weight 136.9 kg (301 lb 12.8 oz) 2022 11:42 AM CDT Height 182.9 cm (6') 07/21/2022 11:42 AM CDT Body Mass Index 40.93 07/21/2022 11:42 AM CDT documented in this encounter Progress Notes * Onesimo Bruno MD - 07/21/2022 11:40 AM CDT 1. Morbid obesity (H) He is entirely too sedentary I discussed this with him. He needs to get back into doing some activity. Unfortunately his insurance would not cover GLP-1 agonist. 2. Bilateral pulmonary embolism (H) Continue lifelong anticoagulation. 3. Moderate persistent asthma without complication Continue medications per pulmonary. 4. Atherosclerosis of big lagoon coronary artery of [place] lag[place] heart without angina pectoris Lipids for monitoring. No evidence of angina. - Lipid panel reflex to direct LDL Fasting; Future - Lipid panel reflex to direct LDL Fasting 5. Stage 3a chronic kidney disease (H) Renal function for monitoring. - Comprehensive metabolic panel (BMP + Alb, Alk Phos, ALT, AST, Total. Bili, TP); Future - Comprehensive metabolic panel (BMP + Alb, Alk Phos, ALT, AST, Total. Bili, TP) 6. 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 Continue close follow-up with his psychiatrist. 7. Need for nmqtqqweeg-itgixlg-fxoavgbon (Tdap) vaccine - Tdap, zhpzbcf-cuicwcfbv-bpqte pertussis, (BOOSTRIX) 5-2.5-18.5 LF-MCG/0.5 TAYLOR injection; Inject 0.5 mLs into the muscle once for 1 dose Dispense: 0.5 mL; Refill: 0 8. Prediabetes Lifestyle modification with more activity urged. - Comprehensive metabolic panel (BMP + Alb, Alk Phos, ALT, AST, Total. Bili, TP); Future - Lipid panel reflex to direct LDL Fasting; Future - Hemoglobin A1c; Future - Comprehensive metabolic panel (BMP + Alb, Alk Phos, ALT, AST, Total. Bili, TP) - Lipid panel reflex to direct LDL Fasting - Hemoglobin A1c Daysi Duran is a 71 year old, presenting for the following health issues: Follow Up (Follow up for bilateral pulmonary embolism. Patient has completed cardiac rehab. CT cologram performed 05/21/22. Pt has a right eye blind spot. Being treated by Dr. George with injections.Requesting a tetnus shot. ) 07/21/2022 11:24 AM Additional Questions Roomed by Johana Connor History of Present Illness Asthma: He presents for follow up of asthma. He has no cough, no wheezing, and some shortness of breath. He is using a relief medication daily. He typically misses taking his controller medication 2 time(s) per week.Patient is aware of the following triggers: same as previous visit, dust mites, exercise or sports, gastric reflux, humidity, mold, smoke and upper respiratory infections. The patienthas not had a visit to the Emergency Room, Urgent Care or Hospital due to asthma since the last clinic visit. Hyperlipidemia: He presents for follow up of hyperlipidemia. He is taking medication to lower cholesterol. He is not having myalgia or other side effects to statin medications. Hypertension: He presents for follow up of hypertension. He does not check blood pressure regularlyoutside of the clinic. Outpatient blood pressures have not been over 140/90. He follows a low salt diet. Vascular Disease: He presents for follow up of vascular disease. He is not taking daily aspirin. He eats 2-3 servings of fruits and vegetables daily.He consumes 0 sweetened beverage(s) daily.He exercises with enough effort to increase his heart rate 10 to 19 minutes per day. He exercises with enough effort to increase his heart rate 5 days per week. He is taking medications regularly. Roger comes in today accompanied by his Cordell. 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 He has morbid obesity as well as asthma and history of bilateral pulm pulmonary emboli. He has renal insufficiency. He is unfortunately also has had traumatic brain injury with cognitive deficits as a result. He was doing pulmonary rehab for his chronic dyspnea on exertion after his PE. He is done with that now he is becoming more sedentary. states that he likes to sit and watch [employer] videos day in and day out. He does very little physical activity. His dyspnea on exertion persists though. No chest pains. Mood has been okay. He recently reconnected with son of a cousin who lives not far from them and he is hoping to be able to dosome gardening on their land. Otherwise things are going okay for him. They are going to [place] to a [place] service for his niecewho in December Review of Systems Objective BP 135/82 (BP Location: Left arm, Patient Position: Sitting, Cuff Size: Adult Large) Pulse 81 Temp 98.2 ??F (36.8 ??C) (Tympanic) Resp 17 Ht 1.829 m (6') Wt 136.9 kg (301 lb 12.8 oz) [id number]% BMI 40.93 kg/m?? Body mass index is 40.93 kg/m??. Physical Exam Obese gentleman who looks well and is in good spirits today. documented in this encounter Plan of Treatment Upcoming Encounters Date Type Department Care Team (Late st Contact Info) Description 04/04/2023 1:00 PM CHARGEBACK SPECIALIST Virtual Visit [facility] [address] [place] [phone] Keke Brooks, RD [address] [facility] [address] [place] [address] documented as of this encounter [...] I will look into working with a life trainer to assist me with resistance training. 5. I will report progress towards this goal at outreach telephone calls from the [facility] team Discussed 12/28/22 documented as of this encounter Procedures Procedure Name Priority Date/Time Associated Diagnosis Comments LIPID REFLEX TO DIRECT LDL PANEL Routine 07/21/2022 12:39 PM CDT Atherosclerosis of [place] lag[place] coronary artery of [place] heart without angina pectoris Prediabetes HEMOGLOBIN A1C Routine 07/21/2022 12:39 PM CDT Prediabetes COMPREHENSIVE METABOLIC PANEL Routine 07/21/2022 12:39 PM CDT Stage 3a chronic kidney disease (H) Prediabetes documented in this encounter Results * (ABNORMAL) Hemoglobin A1c (07/21/2022 12:39 PM CDT) Hemoglobin A1C 6.0(H) 0.0 - 5.6 % 07/21/2022 12:46 PM CDT [facility] Comment: Normal <5.7% Prediabetes 5.7-6.4% ?? Diabetes 6.5% or higher Note: Adopted from ADA consensus guidelines. Blood STRUCTURE OF RIGHT HAND / Unknown Venipuncture / Unknown 07/21/2022 12:39 PM CDT 07/21/2022 12:39 PM CDT Onesimo Bruno MD LAB - BLOOD ORDERABL ES Performing Organization Address City/State/[facility] Co de Phone Number [facility] [address] [place] [address] * Lipid panel reflex to direct LDL Fasting (07/21/2022 12:39 PM CDT) Cholesterol 124 <200 mg/dL 07/21/2022 10:31 PM CDT [facility] Triglycerides 130 <150 mg/dL 07/21/2022 10:31 PM CDT [facility] Direct Measure HDL 42 >=40 mg/dL 2022 10:31 PM CDT [facility] LDL Cholesterol Calculated 56 <=100 mg/dL 07/21/2022 10:31 PM CDT [facility] Non HDL Cholesterol 82 <130 mg/dL 07/21/2022 10:31 PM CDT [facility] Blood STRUCTURE OF RIGHT HAND / Unknown Venipuncture / Unknown 07/21/2022 12:39 PM CDT 07/21/2022 12:39 PM CDT Narrative [facility] - 07/21/2022 10:31 PM CDT Cholesterol Desirable: ??<200 mg/dL Triglycerides Normal: [...] LAB - BLOOD ORDERABL ES [facility] [place] [facility] [address] [facility], [address] [phone], [facility] [phone] * Comprehensive metabolic panel (BMP + Alb, Alk Phos, ALT, AST, Total. Bili, TP) (07/21/2022 12:39 PMCDT) Sodium 141 136 - 145 mmol/L 07/21/2022 10:31 PM CDT [facility] Potassium 4.5 3.4 - 5.3 mmol/L 07/21/2022 10:31 PM CDT [facility] Chloride 106 98 - 107 mmol/L 07/21/2022 10:31 PM CDT [facility] Carbon Dioxide (CO2) 23 22 - 29 mmol/L 07/21/2022 10:31 PM CDT [facility] Anion Gap 12 7 - 15 mmol/L 07/21/2022 10:31 PM CDT [facility] Urea Nitrogen 19.6 8.0 - 23.0 mg/dL 07/21/2022 10:31 PM CDT [facility] Creatinine 1.12 0.67 - 1.17 mg/dL 07/21/2022 10:31 PM CDT [facility] Calcium 8.8 8.8 - 10.2 mg/dL 07/21/2022 10:31 PM CDT [facility] Glucose 97 70 - 99 mg/dL 07/21/2022 10:31 PM CDT [facility] Alkaline Phosphatase 51 40 - 129 U/L 07/21/2022 10:31 PM CDT [facility] AST 18 10 - 50 U/L 07/21/2022 10:31 PM CDT [facility] ALT 19 10 - 50 U/L 07/21/2022 10:31 PM CDT [facility] Protein Total 6.4 6.4 - 8.3 g/dL 07/21/2022 10:31 PM CDT [facility] Albumin 4.0 3.5 - 5.2 g/dL 07/21/2022 10:31 PM CDT [facility] Bilirubin Total 0.6 <=1.2 mg/dL 07/21/2022 10:31 PM CDT [facility] GFR Estimate 71 >60 mL/min/1.7 3m2 07/21/2022 10:31 PM CDT [facility] Comment:eGFR calculated usin 2020 CKD-EPI equation. Blood STRUCTURE OF RIGHT HAND / Unknown Venipuncture / Unknown 07/21/2022 12:39 PM CDT 07/21/2022 12:39 PM CDT Onesimo Bruno MD LAB - BLOOD ORDERABL ES [facility] [place] [facility] [address] [facility], [address] [phone], 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) Need for zlnepzghaf-xplembs-gnedalzaf (Tdap) vaccine Need for prophylactic vaccination with combined mzcmzfspqa-bzfhild-rspkisogr (DTP) vaccine Prediabetes Other abnormal glucose documented in this encounter Additional Health Concerns Problem Noted Date Diagnosed Date HP GENERAL PROBLEM 11/13/2021 Assessment Noted Time PHQ-9 Depression Total Score: 8 04/16/19 23 9:42 AM CHARGEBACK SPECIALIST documented as of this encounter Care Teams Acidity Tester Relationship Specialty Start Date End Date Onesimo Bruno MD PCP - General 08/11/06 Bhavna Mac, PharmD [address] [place] [address] Pharmacist Pharmacist 07/11/18 Isaac Bro, RN Lead Farm Contractor Primary Care - CC 09/01/18 Onesimo Bruno MD [address] [place] [address] Assigned PCP 07/30/20 Nataliia Gomez MD [address] [place] [address], [address] [place] [address] Assigned Heart and Vascular Provider 08/29/20 10/08/22 Rafita Ayers MD [address] [place] [address] Assigned Pulmonology Provider 10/12/20 Flo Henry MD [address] [place] [address] Assigned Behavioral Health Provider 09/21/20 Jana Vick W Community Health Worker Primary Care - CC 06/08/21 Lorri Larsen MD [address] [place] [address] Otolaryngology 07/21/21 Lorri Larsen MD [address] [place] [address] Assigned Surgical Provider 10/10/21 Rafita Ayers MD [address] [place] [address] Critical Care 11/30/21 Kaelyn New AuD [address] [place] [address] Derrick Barge Operator Audiology 12/09/21 documented as of this encounter
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
--- OUTSIDE RECORDS SUMMARY | 2023-02-27 14:30 | XMS_ITS | Encounter Summary ---
Author Name Unknown Organization [facility] Address [address] [place] [address] Care Team Providers Care Milieu Coordinator Name Role Phone Onesimo Bruno MD Primary Care Provider [phone] Bhavna Mac PharmD Unavailable Isaac Bro RN Unavailable Unavailable Onesimo Bruno MD Unavailable [phone] Nataliia Gomez MD Unavailable Luly Grant MD Unavailable Rafita Ayers MD Unavailable [phone] Flo Henry MD Unavailable [phone] Jana Vick CHW Unavailable Unavailabl e Lorri Larsen MD Unavailable [phone] Lorri Larsen MD Unavailable [phone] Rafita Ayers MD Unavailable [phone] Kaelyn New Unavailable [phone] Reason for Referral * Consultation (Routine: Next available opening) - Referral NOT Required Specialty Diagnoses / Procedures Referred By Contac t Referred To Contact Bariatric Diagnoses Morbid obesity (H) Prediabetes IDA (obstructive sleep apnea) Metabolic syndrome Stage 3a chronic kidney disease (H) Chandler Day MD [address] [place] [address] [facility] Family Medicine/Ob [address] [place] [address] Referral ID Status Reason Start Date Expiration Date V isits Requested Visits Authorized [id number] Referral NOT Required 04/15/2022 04/15/2023 1 1 Question Answer Preferred Location: [facility] Scheduling Instructions: Please call to schedule your appointment Additional Information: looking for senior laboratory technician visit. Comments Please be aware that coverage of these services is subject to the terms and limitations of your health insurance plan. Call member services at your health plan with any benefit or coverage questions. Please call to schedule your appointment LINE SUPERVISOR Reason for Visit * Reason Comments Weight Loss F/u Encounter Details Date Type Department Care Team (Late st Contact Info) Description 04/15/2022 10:00 AM TRAY LINE SUPERVISOR Virtual Visit [facility] [address] [place] [phone] Chandler Day MD [address] [place] [address] Morbid obesity (H) (Primary Dx); Prediabetes; IDA (obstructive sleep apnea); Metabolic syndrome; Stage 3a chronic kidney disease (H); Benign Essential Hypertension; Hypercholesterolemia Social History Tobacco Use Types Packs/Day Years Used Date Smoking Tobacco: Never Smokeless Tobacco: Never Tobacco Cessation:Counseling Given: Not Answered Alcohol Use Standard Drinks/Week Comments No 0 (1 standard drink = 0.6 oz pur e alcohol) PHQ-2 Answer Date Recorded PHQ-2 Score 3 04/15/2022 Sex and Gender Information Value Date Recorded Sex Assigned at Male 05/09/2020 12:49 AM CDT Gender Identity Male 05/09/2020 12:49 AM CDT Sexual Orientation Garcia 09/17/2020 11 :45 PM CDT COVID-19 Exposure Response Date Recorded In the last 10 days, have yo u been in contact with someone who was confirmed or suspected to have Coronavirus/COVID-19? No / Unsure 04/05/2022 1:34 PM TRAY LINE SUPERVISOR documented as of this encounter Progress Notes * Chandler Day MD - 04/15/2022 10:00 AM CST Roger is a 71 year old who is being evaluated via a billable video visit. How would you like to obtain your AVS? MyChart If the video visit is dropped, the invitation should be resent by: Text to cell phone: [phone] Will anyone else be joining your video visit? No Video-Visit Details Type of service: Video Visit Video Start Time: 10:06 AM Video End Time:10:46 AM Originating Location (pt. Location): Home Distant Location (provider location): On-site Platform used for Video Visit: Project Fixup Problem List Items Addressed This Visit Benign Essential Hypertension CKD (chronic kidney disease) stage 3, GFR 30-59 ml/min (H) Relevant Orders Comprehensive Weight Management Hypercholesterolemia Metabolic syndrome Relevant Medications semaglutide (OZEMPIC) 2 MG/1.5ML SOPN pen Other Relevant Orders Comprehensive Weight Management Morbid obesity (H) - Primary 71 year old year old male in [...] believe he has some opportunity with both student life coordinator and dietitian from his previous encounter with comprehensive weight management). If semaglutide is not covered, I would check with the patient's substitute school nurse and see if she could justify an SGLT2 inhibitor. The patient tells me that in general his voiding is quite normal. I believe he could tolerate this medication, realize a reduction in overall heart disease risk and potentially lose some weight. I have asked the patient to schedule follow-up appointment in a couple of months to review progress towards nutritional/weight goals. Relevant Medications semaglutide (OZEMPIC) 2 MG/1.5ML SOPN pen Other Relevant Orders Comprehensive Weight Management IDA (obstructive sleep apnea) Relevant Orders Comprehensive Weight Management Prediabetes Relevant Medications semaglutide (OZEMPIC) 2 MG/1.5ML SOPN pen blood glucose monitoring (NO BRAND SPECIFIED) meter device kit blood glucose (NO BRAND SPECIFIED) test strip blood glucose calibration (NO BRAND SPECIFIED) solution thin (NO BRAND SPECIFIED) lancets alcohol swab prep pads Other Relevant Orders Comprehensive Weight Management Follow-up Visit Expected date: May 27, 2022 Follow Up Appointment Details: Follow-up with whom?: Me Follow-Up for what?: Chronic Disease f/u Chronic Disease f/u: General (Other) Additional Details: Weight loss visit How?: In Person Is this an as-needed follow-up?: No Subjective Roger is a 71 year old who presents for the following health issues accompanied by his spouse Chief Complaint Patient presents with ??? Weight Loss F/u Weight: - he struggled to recover from symptoms of COVID. He has participating in pulmonary rehabilitation - no lives in [facility]. - weight: ~310lbs . I topped out. Weight has been curved downward a little bit. - has been doing the cooking. He has been struggling to execute high protein breakfast. Lots of fresh fruit. - portions have been large. - his garden equipment mechanic suggested leptin resistance - he wakes to snack in the middle of the night. Review of Systems Constitutional: Negative. All other systems reviewed and are negative. Objective Vitals - Patient Reported Weight (Patient Reported): 137.7 kg (303 lb 9.6 oz) Physical Exam Nursing note reviewed. Constitutional: General: He is not in acute distress. Appearance: Normal appearance. He is not ill-appearing. HENT: Head: Normocephalic and atraumatic. Eyes: Extraocular Movements: Extraocular movements intact. Conjunctiva/sclera: Conjunctivae normal. Pulmonary: Effort: Pulmonary effort is normal. Neurological: Mental Status: He is alert and oriented to person, place, and time. Psychiatric: Attention and Perception: Attention normal. Mood and Affect: Mood normal. Speech: Speech normal. Thought Content: Thought content normal. 45 minutes spent on the date of the encounter doing chart review, history and exam, documentation and further activities per the note This note has been dictated using voice recognition software. Any grammatical or context distortions are unintentional and inherent to the software Answers for HPI/ROS submitted by the patient on 04/15/2022 If you checked off any problems, how difficult have these problems made it for you to do your work,take care of things at home, or get along with other people?: Somewhat difficult PHQ9 TOTAL SCORE: 8 LINE SUPERVISOR documented in this encounter Miscellaneous Notes * Assessment & Plan Note - Chandler Day MD - 04/15/2022 10:11 AM TRAY LINE SUPERVISOR Associated Problem(s): Morbid obesity (H) 71 year old year old male in [...] believe he has some opportunity with both student life coordinator and dietitian from his previous encounter with comprehensive weight management). If semaglutide is not covered, I would check with the patient's substitute school nurse and see if she could justify an SGLT2 inhibitor. The patient tells me that in general his voiding is quite normal. I believe he could tolerate this medication, realize a reduction in overall heart disease risk and potentially lose some weight. I have asked the patient to schedule follow-up appointment in a couple of months to review progress towards nutritional/weight goals. LINE SUPERVISOR documented in this encounter Plan of Treatment Upcoming Encounters Date Type Department Care Team (Late st Contact Info) Description 04/04/2023 1:00 PM TRAY LINE SUPERVISOR Virtual Visit [facility] Surgery Clinic and Bariatrics Care [address] [place] [address] Keke Brooks, RD [address] [facility] [address] [place], [place] [id number] Scheduled Referrals Name Type Priority Associated Diagnoses Order Schedule Comprehensive Weight Management Referral Routine: Next available opening Morbid obesity (H) Prediabetes IDA (obstructive sleep apnea) Metabolic syndrome Stage 3a chronic kidney disease (H) Expected: 04/15/2022 (Approximate), Expires: 04/16/2023 documented as of this encounter Goals Goal [...] goal at outreach telephone calls from the [facility] team Discussed 11/14/23 documented as of this encounter Visit Diagnoses Diagnosis Morbid obesity (H)- Primary Morbid obesity Prediabetes Other abnormal glucose IDA (obstructive sleep apnea) Obstructive sleep apnea (adult) (pediatric) Metabolic syndrome Dysmetabolic Syndrome X Stage 3a chronic kidney disease (H) Benign Essential Hypertension Essential hypertension, benign Hypercholesterolemia Pure hypercholesterolemia documented in this encounter Additional Health Concerns Problem Noted Date Diagnosed Date HP GENERAL PROBLEM 11/13/2021 Assessment Noted Time PHQ-9 Depression Total Score: 8 04/16/19 23 9:42 AM TRAY LINE SUPERVISOR documented as of this encounter Care Teams Milieu Coordinator Relationship Specialty Start Date End Date Onesimo Bruno MD PCP - General 08/11/06 Bhavna Mac PharmD [address] [place] [address] Pharmacist Pharmacist 07/11/18 Isaac Bro, RN Lead Supervisor Volunteer Services Primary Care - CC 09/01/18 Onesimo Bruno MD [address] [place] [address] Assigned PCP 07/30/20 Nataliia Gomez MD [address] [facility], [address] [place] [address] Assigned Heart and Vascular Provider 08/29/20 10/08/22 [place] [address] [place] [address] [address] [place] [address] Assigned Allergy Provider 08/29/20 04/16/22 Rafita Ayers MD [address] [place] [address] Assigned Pulmonology Provider 10/12/20 Flo Henry MD [address] [place] [address], [place] [address] Assigned Behavioral Health Provider 09/21/20 Jana Vick W Community Health Worker Primary Care - CC 06/08/21 Lorri Larsen MD [address] [place] [address] Otolaryngology 07/21/21 Lorri Larsen MD [address] [place] [address] Assigned Surgical Provider 10/10/21 Rafita Ayers MD [address] [place] [address] Critical Care 11/30/21 Kaelyn New AuD [address] [place] [address] Molder Setter Audiology 12/09/21 documented as of this encounter
--- OUTSIDE RECORDS SUMMARY | 2023-02-27 14:30 | XMS_ITS | Encounter Summary ---
Author Name Unknown Organization [facility] Address [address] [place] [address] Care Team Providers Care Engagement Specialist Name Role Phone Onesimo Bruno MD Primary Care Provider [phone] Bhavna Mac PharmD Unavailable [phone] Isaac Bro RN Unavailable Unavailable Onesimo Bruno MD Unavailable [phone] Nataliia Gomez MD Unavailable Rafita Ayers MD Unavailable Flo Henry MD Unavailable [phone] Jana Vick CHW Unavailable UnavailLorri Ulloa MD Unavailable [phone] Lorri Larsen MD Unavailable [phone] Rafita Ayers MD Unavailable [phone] Kaelyn New Unavailable [phone] Encounter Details Date Type Department Care Team (Late st Contact Info) Description 05/17/2022 8:30 AM CDT Virtual Visit [facility] Surgery Clinic and Bariatrics Care [address] [place] [address] Keke Brooks, RD [address] [facility] [address] [place] [address] CKD (chronic kidney disease) stage 3, GFR 30-59 ml/min (H) (Primary Dx); Benign Essential Hypertension; Hypercholesterolemia ; Class 3 severe obesity due [...] Progress Notes * Keke Brooks, RD - 05/17/2022 8:30 AM CDT Images from the original note were not included. Roger Luong is a 71 year old who is being evaluated via a billable video visit. How would you like to obtain your AVS? MyChart If the video visit is dropped, the invitation should be resent by: Send to e- mail at: [email or web address] Will anyone else be joining your video visit? No Medical Weight Loss Follow-Up Diet Evaluation Assessment: Roger is presenting today for a follow up weight management nutrition consultation. This patient has had an initial appointment and was referred by Dr. Day. for MNT as treatment of their Morbid obesity ,which is impacting their Hypercholesterolemia, HTN, CAD, CKD. Weight loss medication: Ozempic. Pt's weight is 310 lbs View : No data to display. BMI: There is no height or weight on file to calculate BMI. Mildred body weight: 77.6 kg (171 lb 1.2 oz) Adjusted ideal body weight: 102.6 kg (226 lb 3.9 oz) Estimated RMR (Craven-St Mohanor equation): 2215 kcals x 1.3 (light active) = 2880 kcals (for weight maintenance) Recommended Protein Intake: 60-80 grams of protein/day Patient Active Problem List: Patient Active Problem List Diagnosis ??? Skin Lesion ??? Benign Pigmented Nevus ??? Hemangioma Of The Skin ??? Actinic keratosis ??? Sebaceous Hyperplasia ??? Traumatic brain injury with loss of consciousness, sequela (H) ??? Hypercholesterolemia ??? IDA (obstructive sleep apnea) ??? Benign Essential Hypertension ??? Coronary Artery Disease ??? Allergic rhinitis ??? Wheezing (Symptom) ??? Thrombophlebitis Of Superficial Vessels Of The Lower Extremity ??? Edema ??? Bilateral pulmonary embolism (H) ??? Pulmonary emboli (H) ??? Atherosclerosis of [place] coronary artery of [place] heart without angina pectoris ??? Avitaminosis D ??? Metabolic syndrome ??? Prediabetes ??? CKD (chronic kidney disease) stage 3, GFR 30-59 ml/min (H) ??? Urinary retention ??? Morbid obesity (H) ??? History of traumatic head injury ??? Impairment of balance ??? 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 Nocturnal sleep-related eating disorder CKD: Yes, stage 3. Progress on goals from last visit: Has been trying to do more cooking from home these days. Patientreports that he hasn't been as consistent with eating 3 meals/day, which seems to be a challenge these days. Dietary Recall: Breakfast: skipped or late breakfast around 11 am or Tyler (bigger breakfast) or eggs or cottage cheese, fruit, occasional toast or luxembourgish muffin or omelette with veggies or poached egg with an avocado, luxembourgish muffin or steel cut oatmeal Lunch:soup and sandwich or skipped Dinner:meat, vegetable, starch (on occasion) Exercise: treadmill or walking outside-no set regimen however Nutrition Diagnosis: Overweight/Obesity (NC 3.3) related to overeating and poor lifestyle habits as evidenced by patient's subjective statements (skipped meals, excessive energy intake, lack of exercise) and BMI of 42.1 kg/m2. Intervention: 1. Food and/or nutrient delivery: balanced meals, adequate protein 2. Nutrition education: Snack Ideas, Recipe Resources, Non Surgical Weight Loss packet 3. Nutrition counseling: provided support and encouragement Monitoring/Evaluation: Goals: 1. Get back on track with establishing a set exercise routine. 2. Start working on being consistent with meal planning along with eating 3 meals/day. Patient to follow up in 2 month(s) with [facility] Video-Visit Details Type of service: Video Visit Video Start Time (time video started): 8:17 am Video End Time (time video stopped): 9:02 am Originating Location (pt. Location): Home Distant Location (provider location): Off-site Mode of Communication: Video Conference via [facility] Physician has received verbal consent for a Video Visit from the patient? Yes Keke Brooks RD documented in this encounter Plan of Treatment Upcoming Encounters Date Type Department Care Team (Late st Contact Info) Description 04/04/2023 1:00 PM SECRETARY BOOK KEEPER Virtual Visit [facility] Surgery Clinic and Bariatrics Care [address] [place] [phone] [facility] [address] [place], [place] [id number] documented as of this encounter Goals Goal Patient Goal Type Associated Problems Recent Progress Patient-Stated? Author I would like to get into more healthy eating program to assist me with weight loss. Care Plan HP GENERAL PROBLEM 30%( 3 12:31 PM CDT) Isaac Palomino, RN Note: [...] I will look into working with a resident athletic trainer to assist me with resistance training. 5. I will report progress towards this goal at outreach telephone calls from the [facility] team Discussed 12/28/22 documented as of this encounter Visit Diagnoses Diagnosis CKD (chronic kidney disease) stage 3, GFR 30-59 ml/min (H)- Primary Chronic kidney disease, Stage III (moderate) Benign Essential Hypertension Essential hypertension, benign Hypercholesterolemia Pure hypercholesterolemia Class 3 severe obesity due to excess calories with serious comorbidity and body mass index (BMI) of 40.0 to 44.9 in adult (H) Nutritional counseling documented in this encounter Additional Health Concerns Problem Noted Date Diagnosed Date HP GENERAL PROBLEM 11/13/2021 Assessment Noted Time PHQ-9 Depression Total Score: 8 04/16/19 23 9:42 AM SECRETARY BOOK KEEPER documented as of this encounter Care Teams Engagement Specialist Relationship Specialty Start Date End Date Onesimo Bruno MD PCP - General 08/11/06 Bhavna Mac, GenesisD [address] [place] [address] Pharmacist Pharmacist 07/11/18 Isaac Bro, RN Lead Box Shook Patcher Primary Care - CC 09/01/18 Onesimo Bruno MD [address] [place] [address] Assigned PCP 07/30/20 Nataliia Gomez MD [address] [facility], [address] [place] [address] Assigned Heart and Vascular Provider 08/29/20 10/08/22 Rafita Ayers MD [address] [place] [address] Assigned Pulmonology Provider 10/12/20 Flo Henry MD [facility] [address] [id number] Assigned Behavioral Health Provider 09/21/20 Jana Vick W Community Health Worker Primary Care - CC 06/08/21 Lorri Larsen MD [address] [place] [address] Otolaryngology 07/21/21 Lorri Larsen MD [address] [place] [address] Assigned Surgical Provider 10/10/21 Rafita Ayers MD [address] [place] [address] Critical Care 11/30/21 Kaelyn New AuD [address] [place] [address] International Trade Specialist Audiology 12/09/21 documented as of this encounter
--- OUTSIDE RECORDS SUMMARY | 2023-02-27 14:30 | XMS_ITS | Encounter Summary ---
Author Name Unknown Organization [facility] Address [address] [place] [address] Care Team Providers Care Dag Sprayer Name Role Phone Onesimo Bruno MD Primary Care Provider [phone] Bhavna Mac PharmD Unavailable [phone] Isaac Bro RN Unavailable Unavailable Onesimo Bruno MD Unavailable [phone] Nataliia Gomez MD Unavailable Rafita Ayers MD Unavailable Flo Henry MD Unavailable [phone] Jana Vick CHW Unavailable UnavailLorri Ulloa MD Unavailable [phone] Lorri Larsen MD Unavailable [phone] Rafita Ayers MD Unavailable [phone] Kaelyn New Unavailable [phone] Reason for Referral * Consultation (Routine: Next available opening) - Pending Review Specialty Diagnoses / Procedures Referred By Controsa t Referred To Contact Cardiovascular Disease Diagnoses Coronary artery disease involving [place] coronary artery of [place] heart, unspecified whether angina present Hypercholesterolemia PVC's (premature ventricular contractions) Nataliia Gomez MD [address] [facility], [address] [place] [address] Referral ID Status Reason Start Date Expiration Date V isits Requested Visits Authorized [id number] Pending Review 06/01/2022 06/01/2023 1 1 Scheduling Instructions Yrly follow-up. mg Question Answer Follow-up with: Self Scheduling Instructions: [facility] will call you to coordinate your care as prescribed by your provider. If you have concerns about scheduling, please call [phone]. Comments [facility] will call you to coordinate your care as prescribed by your provider. If you have concerns about scheduling, please call [phone]. Encounter Details Date Type Department Care Team (Late st Contact Info) Description 06/01/[address] [facility] [place] [address] [facility] [address] [place] [address] Lyn Fuller RN Coronary artery disease involving [place] coronary artery of [place] heart, unspecified whether angina present (Primary Dx); Hypercholesterolemia; PVC's (premature ventricular contractions) Social History Tobacco Use Types Packs/Day Years [...] st Contact Info) Description 04/04/2023 1:00 PM ADMINISTRATIVE SERVICES DIRECTOR Virtual Visit [facility] Surgery Clinic and Bariatrics Care [place] [address] [facility] [address] [place] [address] Keke Brooks, RD [address] [facility] [address] [place] [address] Scheduled Referrals Name Type Priority Associated Diagnoses Orde r Schedule Follow-Up with Cardiology Referral Routine: Next available opening Coronary artery disease involving [place] coronary artery of [place] heart, unspecified whether angina present Hypercholesterolemia PVC's (premature ventricular contractions) Expected: 02/14/2023 (Approximate), Expires: 06/02/2023 documented as of this encounter Goals Goal [...] will look into working with a personal financial planner to assist me with resistance training. 5. I will report progress towards this goal at outreach telephone calls from the [facility] team Discussed 12/28/22 documented as of this encounter Visit Diagnoses Diagnosis Coronary artery disease involving [place] coronary artery of [place] heart, unspecified whether angina present- Primary Hypercholesterolemia Pure hypercholesterolemia PVC's (premature ventricular contractions) Other premature beats documented in this encounter Additional Health Concerns Problem Noted Date Diagnosed Date HP GENERAL PROBLEM 11/13/2021 Assessment Noted Time PHQ-9 Depression Total Score: 8 04/16/19 9:42 AM ADMINISTRATIVE SERVICES DIRECTOR documented as of this encounter Care Teams Dag Sprayer Relationship Specialty Start Date End Date Onesimo Bruno MD PCP - General 08/11/06 Bhavna Mac, GenesisD [address] [place] [address] Pharmacist Pharmacist 07/11/18 Isaac Bro, RN Lead Geology Faculty Member Primary Care - CC 09/01/18 Onesimo Bruno MD [address] [place] [address] Assigned PCP 07/30/20 Nataliia Gomez MD [address] [facility], [address] [place] [address] Assigned Heart and Vascular Provider 08/29/20 10/08/22 Rafita Ayers MD [address] [place] [address] Assigned Pulmonology Provider 10/12/20 Flo Henry MD [facility] [address] [address] Assigned Behavioral Health Provider 09/21/20 Jana Vick, [facility] Community Health Worker Primary Care - CC 06/08/21 Lorri Larsen MD [address] [place] [address] Otolaryngology 07/21/21 Lorri Larsen MD [address] [place] [address] Assigned Surgical Provider 10/10/21 Rafita Ayers MD [address] [place] [address] Critical Care 11/30/21 Kaelyn New AuD [address] [place] [address] Butter Printer Audiology 12/09/21 documented as of this encounter
--- OUTSIDE RECORDS SUMMARY | 2023-02-27 14:30 | XMS_ITS | Encounter Summary ---
Author Name Unknown Organization [place] Address [address] [place] [address] Care Team Providers Care Director College Name Role Phone Onesimo Bruno MD Primary Care Provider Bhavna Mac PharmD Unavailable Isaac Bro RN Unavailable Unavailable Onesimo Bruno MD Unavailable [phone] Nataliia Gomez MD Unavailable Rafita Ayers MD Unavailable Flo Henry MD Unavailable [phone] Jana Vick W Unavailable UnavailLorri Ulloa MD Unavailable [phone] Lorri Larsen MD Unavailable [phone] Rafita Ayers MD Unavailable +[phone] Kaelyn New Unavailable [phone] Reason for Visit * Reason Onset Date Comments Forms 06/07/2022 [facility] Encounter Details Date Type Department Care Team (Late st Contact Info) Description 06/07/2022 [facility] 1390 [place] [phone] Onesimo Bruno MD [address]0 [place] [address] Forms (Seb CMN form. ) Social History Tobacco Use Types Packs/Day [...] encounter Miscellaneous Notes * Telephone Encounter - Brigette Guerrero MA - 06/09/2022 10:47 AM CDT Forms completed and faxed to [facility] today. * Telephone Encounter - Neida Mueller MA - 06/07/2022 7:41 AM CDT June 07, 2022 Notification of [facility] form for CMN was received via fax for Dr. Bruno to sign. Patient label was attached to paperwork and placed in provider's inbox to be signed. Neida Mueller MA documented in this encounter Plan of Treatment Upcoming Encounters Date Type Department Care Team (Late st Contact Info) Description 04/04/2023 1:00 PM SHOE SEWING MACHINE OPERATOR AND TENDER Virtual Visit [facility] [address] 200 [place] [phone] Keke Brooks, RD 420 [facility] 84 [place], [place] [address] documented as of this encounter Goals Goal Patient Goal Type Associated Problems Recent Progress Patient-Stated? Author I would like to get into more healthy eating program to assist me with weight loss. Care Plan HP GENERAL PROBLEM 30%( 12:31 PM CDT) No Myhre, Krishna, RN Note: Barriers: Patient reported increase in [...] will look into working with a personal injury paralegal to assist me with resistance training. 5. I will report progress towards this goal at outreach telephone calls from the [facility] team Discussed 12/28/22 documented as of this encounter Visit Diagnoses Not on filedocumented in this encounter Additional Health Concerns Problem Noted Date Diagnosed Date HP GENERAL PROBLEM 11/13/2021 Assessment Noted Time PHQ-9 Depression Total Score: 8 04/16/19 23 9:42 AM SHOE SEWING MACHINE OPERATOR AND TENDER documented as of this encounter Care Teams Director College Relationship Specialty Start Date End Date Onesimo Bruno MD PCP - General 08/11/06 Bhavna Mac, GenesisD 870 [place] [address] Pharmacist Pharmacist 07/11/18 Isaac Bro, RN Lead Water Resource Manager Primary Care - CC 09/01/18 Onesimo Bruno MD 1390 [place] [address] Assigned PCP 07/30/20 Nataliia Gomez MD 1600 [facility], [address] [place] [address] Assigned Heart and Vascular Provider 08/29/20 10/08/22 Rafita Ayers MD 909 [place] [address] Assigned Pulmonology Provider 10/12/20 Flo [place] MD [address] [address] Assigned Behavioral Health Provider 09/21/20 Jana Vick, W Community Health Worker Primary Care - CC 06/08/21 Lorir Larsen MD [address] [place] [address] Otolaryngology 07/21/21 Lorri Larsen MD [address] [place] [address] Assigned Surgical Provider 10/10/21 Rafita Ayers MD [address] [place] [address] Critical Care 11/30/21 Kaelyn New AuD [facility] [place] [address] Stripping And Booking Machine Operator Audiology 12/09/21 documented as of this encounter
--- OUTSIDE RECORDS SUMMARY | 2023-02-27 14:30 | XMS_ITS | Encounter Summary ---
Author Name Unknown Organization [place] Address [address] [place] [address] Care Team Providers Care Scientist Engineer Name Role Phone Onesimo Bruno MD Primary Care Provider [phone] Bhavna Mac PharmD Unavailable [phone] Isaac Bro RN Unavailable Unavailable Onesimo Bruno MD Unavailable [phone] Nataliia Gomez MD Unavailable Rafita Ayers MD Unavailable +[phone] Flo [place] MD Unavailable [phone] Jana Vick W Unavailable UnavailLorri Ulloa MD Unavailable [phone] Lorri Larsen MD Unavailable [phone] Rafita Ayers MD Unavailable +[phone] Kaelyn New Unavailable [phone] Marino Hayes MD Unavailable + [phone] Marino Hayes MD Unavailable + [phone] Reason for Visit * Reason Comments Medication Refill Encounter Details Date Type Department Care Team (Late st Contact Info) Description 05/30/2022 Refill [facility] 1600 [facility] [address] [place] [phone] Nataliia Gomez MD 1600 [facility] [address] [place] [address] Medication Refill Social History Tobacco Use Types [...] st Contact Info) Description 04/04/2023 1:00 PM WOODS LABORER Virtual Visit [facility]rics Care [address] [place] [address] Keke Brooks, RD 420 [facility] 84 [place] [address] documented as of this encounter Goals Goal [...] Total Score: 8 04/16/19 23 9:42 AM WOODS LABORER documented as of this encounter Care Teams Scientist Engineer Relationship Specialty Start Date End Date Onesimo Bruno MD PCP - General 08/11/06 Bhavna Mac, GenesisD 870 [place] [address] Pharmacist Pharmacist 07/11/18 Isaac Bro, RN Lead Real Estate Sales Supervisor Primary Care - CC 09/01/18 Onesimo Bruno MD 1390 [place] [address] Assigned PCP 07/30/20 Nataliia Gomez MD [address] [place] [address], [address] [place] [address] Assigned Heart and Vascular Provider 08/29/20 10/08/22 Rafita Ayers MD [address] [place] [address] Assigned Pulmonology Provider 10/12/20 Flo [place] MD [facility] [address] [address] Assigned Behavioral Health Provider 09/21/20 Jana Vick, CHW Community Health Worker Primary Care - CC 06/08/21 Lorri Larsen MD [address] [place] [address] Otolaryngology 07/21/21 Lorri Larsen MD 9 [place] [address] Assigned Surgical Provider 10/10/21 Rafita Ayers MD [address] [place] [address] Critical Care 11/30/21 Kaelyn New AuD [address] [place] [address] Carpentry Instructor Audiology 12/09/21 Marino Hayes MD [address] [place] [address] Cardiovascular Disease 09/28/22 Marino [place] MD [address] [place] [address] Assigned Heart and Vascular Provider 10/09/22 documented as of this encounter
--- OUTSIDE RECORDS SUMMARY | 2023-02-27 14:30 | XMS_ITS | Encounter Summary ---
Author Name Unknown Organization [place] Address [address] [place] [address] Care Team Providers Care Patient Services Rep Name Role Phone Onesimo Bruno MD Primary Care Provider Bhavna Mac PharmD Unavailable [phone] Isaac Bro RN Unavailable Unavailable Onesimo Bruno MD Unavailable [phone] Nataliia Gomez MD Unavailable Luly Grant MD Unavailable [phone] Rafita Ayers MD Unavailable [phone] Flo [place] MD Unavailable [phone] Jana Vick CHW Unavailable Unavailabl e Lorri Larsen MD Unavailable [phone] Lorri Larsen MD Unavailable [phone] Rafita Ayers MD Unavailable [phone] Kaelyn New AuD Unavailable [phone] Reason for Visit * Reason Onset Date Comments Prior Auth - Medication 04/16/2022 Ozempic (0.25 or 0.5 MG/DOSE) 2MG/1.5ML pen-injectors- DENIED Encounter Details Date Type Department Care Team (Late st Contact Info) Description 04/16/2022 Telephone [facility] [address] [place] [address] Chandler Day MD [address] [place] [address] Prior Auth - Medication (Ozempic (0.25 or 0.5 MG/DOSE) 2MG/1.5ML pen-injectors- DENIED ) Social History Tobacco Use Types Packs/Day [...] Coronavirus/COVID-19? No / Unsure 04/05/2022 1:34 PM DIRECTOR AIRPORT OPERATIONS documented as of this encounter Miscellaneous Notes * Telephone Encounter - Yolanda Dbrosalia Tamez - 04/21/2022 8:42 AM CST Images from the original note were not included. PRIOR AUTHORIZATION DENIED Medication: Ozempic (0.25 or 0.5 MG/DOSE) 2MG/1.5ML pen-injectors- DENIED Denial Date: 04/20/2022 Denial Rational: Appeal Information: If provider would like to appeal please provide a letter of medical necessity. CTOR AIRPORT OPERATIONS * Telephone Encounter - Db Guerrero - 04/20/2022 4:13 PM CST Images from the original note were not included. Central Prior Authorization Team PA Initiation Medication: Ozempic (0.25 or 0.5 MG/DOSE) 2MG/1.5ML pen-injectors Insurance Company: [email or web address] ([facility]) - Pharmacy Filling the Rx: [facility] - [place], [place] - [address] Filling Pharmacy Filling Pharmacy Fax: Start Date: 04/20/2022 CTOR AIRPORT OPERATIONS * Telephone Encounter - Tona Bosch - 04/16/2022 10:31 AM CST Prior Authorization Request Who???s requesting: Pharmacy Pharmacy Name and Location: [facility] Medication Name: semaglutide (OZEMPIC) 2 MG/1.5ML SOPN pen Insurance Plan: Medicare and BCBS Insurance Member ID Number: Medicare [id number], BCBS [id number] CoverMyMeds Nunez: [id number] Informed patient that prior authorizations can take up to 10 business days for response: NA Okay to leave a detailed message: No Route to pool: P FMG [place] MED CTOR AIRPORT OPERATIONS documented in this encounter Plan of Treatment Upcoming Encounters Date Type Department Care Team (Late st Contact Info) Description 04/04/2023 1:00 PM DIRECTOR AIRPORT OPERATIONS Virtual Visit [facility] Surgery Clinic and Bariatrics Care [address] 200 [place] [phone] Keke Brooks, RD [address] [address] documented as of this encounter Goals [...] goal at outreach telephone calls from the [facility] team Discussed 12/28/22 documented as of this encounter Visit Diagnoses Not on filedocumented in this encounter Additional Health Concerns Problem Noted Date Diagnosed Date HP GENERAL PROBLEM 11/13/2021 Assessment Noted Time PHQ-9 Depression Total Score: 8 04/16/19 9:42 AM DIRECTOR AIRPORT OPERATIONS documented as of this encounter Care Teams Patient Services Rep Relationship Specialty Start Date End Date Onesimo Bruno MD PCP - General 08/11/06 Bhavna Mac PharmD 870 [place] [address] Pharmacist Pharmacist 07/11/18 Isaac Bro, RN Lead Bee Producer Primary Care - CC 09/01/18 Onesimo Bruno MD 1390 [place] [address] Assigned PCP 07/30/20 Nataliia Gomez MD 1600 [facility] [address] [place] [address] Assigned Heart and Vascular Provider 08/29/20 10/08/22 Luly Grant MD 1655 [facility] [address] [place], [place] [id number] Assigned Allergy Provider 08/29/20 04/16/22 Rafita Ayers MD 909 [place] [address] Assigned Pulmonology Provider 10/12/20 Flo [place] MD [address] [id number] Assigned Behavioral Health Provider 09/21/20 Jana Vick, [facility] Community Health Worker Primary Care - CC 06/08/21 Lorri Larsen MD [address] [place] [address] Otolaryngology 07/21/21 Lorri Larsen MD [address] [place] [address] Assigned Surgical Provider 10/10/21 Rafita Ayers MD [address] [place] [address] Critical Care 11/30/21 Kaelyn New, [facility]5 [place] [address] Rolloff Driver Audiology 12/09/21 documented as of this encounter
--- OUTSIDE RECORDS SUMMARY | 2023-02-27 14:30 | XMS_ITS | Encounter Summary ---
Author Name Unknown Organization [place] Address [address] [place] [address] Care Team Providers Care Ball Worker Name Role Phone Onesimo Bruno MD Primary Care Provider [phone] Bhavna Mac PharmD Unavailable [phone] Isaac Bro RN Unavailable Unavailable Onesimo Bruno MD Unavailable [phone] Nataliia Gomez MD Unavailable Rafita Ayers MD Unavailable [phone] Flo Henry MD Unavailable [phone] Jana Vick CHW Unavailable UnavailLorri Ulloa MD Unavailable [phone] Lorri Larsen MD Unavailable [phone] Rafita Ayers MD Unavailable [phone] Kaelyn New Unavailable [phone] Encounter Details Date Type Department Care Team (Latest Contact Info) Description 07/21/2022 Travel Social History Tobacco Use Types Packs/Day [...] st Contact Info) Description 04/04/2023 1:00 PM FIBERGLASS MODEL MAKER Virtual Visit [facility] and Bariatrics Care [address] 200 [place] [address] Keke Brooks, RD 420 [facility] 84 [place], [place] [address] documented as of this encounter Goals Goal [...] I will look into working with a circus trainer to assist me with resistance training. 5. I will report progress towards this goal at outreach telephone calls from the [facility] team Discussed 12/28/22 documented as of this encounter Visit Diagnoses Not on filedocumented in this encounter Additional Health Concerns Problem Noted Date Diagnosed Date HP GENERAL PROBLEM 11/13/2021 Assessment Noted Time PHQ-9 Depression Total Score: 8 04/16/19 9:42 AM FIBERGLASS MODEL MAKER documented as of this encounter Care Teams Ball Worker Relationship Specialty Start Date End Date Onesimo Bruno MD PCP - General 08/11/06 Bhavna Mac, GenesisD 870 [place] [address] Pharmacist Pharmacist 07/11/18 Isaac Bro, RN Lead Utility Teller Primary Care - CC 09/01/18 Onesimo Bruno MD 1390 [place] [address] Assigned PCP 07/30/20 Nataliia Gomez MD 1600 [facility], [address] [place] [address] Assigned Heart and Vascular Provider 08/29/20 10/08/22 Rafita Ayers MD [address] [place] [address] Assigned Pulmonology Provider 10/12/20 Flo [place] MD [address] [place] [id number] Assigned Behavioral Health Provider 09/21/20 Jana Vick W Community Health Worker Primary Care - CC 06/08/21 Lorri Larsen MD [address] [place] [address] Otolaryngology 07/21/21 Lorri Larsen MD [address] [place] [address] Assigned Surgical Provider 10/10/21 Rafita Ayers MD [address] [place] [address] Critical Care 11/30/21 Kaelyn New AuD [address] [place] [address] Inhalation Therapy Aides Teacher Audiology 12/09/21 documented as of this encounter
--- OUTSIDE RECORDS SUMMARY | 2023-02-27 14:30 | XMS_ITS | Encounter Summary ---
Author Name Unknown Organization [place] Address [address] [place] [address] Care Team Providers Care Ship Joiner Name Role Phone Onesimo Bruno MD Primary Care Provider [phone] Bhavna Mac PharmD Unavailable [phone] Isaac Bro RN Unavailable Unavailable Onesimo Bruno MD Unavailable [phone] Nataliia Gomez MD Unavailable Rafita Ayers MD Unavailable [phone] Flo Henry MD Unavailable [phone] Jana Vick CHW Unavailable UnavailLorri Ulloa MD Unavailable [phone] Lorri Larsen MD Unavailable [phone] Rafita Ayers MD Unavailable [phone] Kaelyn New Unavailable [phone] Marino [place] MD Unavailable + Marino [place] MD Unavailable + Encounter Details Date Type Department Care Team (Late st Contact Info) Description 05/20/2022 [facility] [address] [place] [address] Chandler Day MD [address] [place] [address] Social History Tobacco Use Types Packs/Day Years [...] st Contact Info) Description 04/04/2023 1:00 PM UNIT TRUST MANAGER Virtual Visit [facility] and Bariatrics Care [address] 200 [place] [address] Keke Brooks, RD 420 [facility] 84 [place] [address] documented as of this encounter Goals Goal [...] I will look into working with a regional trainer to assist me with resistance training. 5. I will report progress towards this goal at outreach telephone calls from the [facility] team Discussed 12/28/22 documented as of this encounter Visit Diagnoses Not on filedocumented in this encounter Additional Health Concerns Problem Noted Date Diagnosed Date HP GENERAL PROBLEM 11/13/2021 Assessment Noted Time PHQ-9 Depression Total Score: 8 03/02/20 23 9:42 AM UNIT TRUST MANAGER documented as of this encounter Care Teams Ship Joiner Relationship Specialty Start Date End Date Onesimo Bruno MD PCP - General 08/11/06 Bhavna Mac, GenesisD 870 [place] [address] Pharmacist Pharmacist 07/11/18 Isaac Bro, RN Lead Manager Contracting Primary Care - CC 09/01/18 Onesimo Bruno MD 1390 [place] [address] Assigned PCP 07/30/20 Nataliia Gomez MD [address] [place] [address], [address] [place] [address] Assigned Heart and Vascular Provider 08/29/20 10/08/22 Rafita Ayers MD [address] [place] [address] Assigned Pulmonology Provider 10/12/20 Flo [place] MD [address] [place] [id number] Assigned Behavioral Health Provider 09/21/20 Jana Vick W Community Health Worker Primary Care - CC 06/08/21 Lorri Larsen MD [address] [place] [address] Otolaryngology 07/21/21 Lorri Larsen MD [address] [place] [address] Assigned Surgical Provider 10/10/21 Rafita Ayers MD 909 [place] [address] Critical Care 11/30/21 Kaelyn New AuD [address] [place] [address] Ironworker Foreman Audiology 12/09/21 Marino [place] MD [address] [place] [address] Cardiovascular Disease 09/28/22 Marino Hayes MD [address] [place] [address] Assigned Heart and Vascular Provider 10/09/22 documented as of this encounter
--- OUTSIDE RECORDS SUMMARY | 2023-02-27 14:30 | XMS_ITS | Encounter Summary ---
Author Name Unknown Organization [place] Address [address] [place] [address] Care Team Providers Care Audio/Video Engineer Name Role Phone Onesimo Bruno MD Primary Care Provider [phone] Bhavna Mac PharmD Unavailable [phone] Isaac Bro RN Unavailable Unavailable Onesimo Bruno MD Unavailable [phone] Nataliia Gomez MD Unavailable Luly Grant MD Unavailable [phone] Rafita Ayers MD Unavailable [phone] Flo Henry MD Unavailable [phone] Jana Vick CHW Unavailable Unavailabl Lorri Luo MD Unavailable +[phone] Lorri Larsen MD Unavailable [phone] Rafita Ayers MD Unavailable [phone] Kaelyn New Unavailable [phone] Reason for Visit * Reason Onset Date Comments Medication Question 04/16/2022 Encounter Details Date Type Department Care Team (Late st Contact Info) Description 04/16/2022 Telephone [facility] [address] [place] [phone] Chandler Day MD [address] [place], [place] [phone] Medication Question Social History Tobacco Use Types Packs/Day Years [...] Coronavirus/COVID-19? No / Unsure 04/05/2022 1:34 PM FISH EGG PACKER documented as of this encounter Miscellaneous Notes * Telephone Encounter - Jennifer Schulz - 04/16/2022 3:57 PM CST The word daily added to rx. Please review note and rx send if agreed EGG PACKER * Telephone Encounter - Tona Bosch - 04/16/2022 3:47 PM CST General Call Contacts Type Contact Phone/Fax 04/16/2022 03:48 PM FISH EGG PACKER Phone (Incoming) [facility] - [address] (Pharmacy) [phone] Reason for Call: Prescription clarification What are your questions or concerns: Pharmacy requesting clarification for: alcohol swab prep pads Sig: Use to swab area of injection/neisha as directed. Please clarify frequency of administration. Please include updated quantity for 90 day supply, if necessary. EGG PACKER documented in this encounter Plan of Treatment Upcoming Encounters Date Type Department Care Team (Late st Contact Info) Description 04/04/2023 1:00 PM FISH EGG PACKER Virtual Visit [facility] Surgery Clinic and Bariatrics Care [address] [phone] Keke Brooks, RD 420 [facility] 84 [place] [address] documented as of this encounter Goals Goal [...] goal at outreach telephone calls from the [facility] team Discussed 12/28/22 documented as of this encounter Visit Diagnoses Diagnosis Prediabetes Other abnormal glucose documented in this encounter Additional Health Concerns Problem Noted Date Diagnosed Date HP GENERAL PROBLEM 11/13/2021 Assessment Noted Time PHQ-9 Depression Total Score: 8 04/16/19 23 9:42 AM FISH EGG PACKER documented as of this encounter Care Teams Audio/Video Engineer Relationship Specialty Start Date End Date Onesimo Bruno MD PCP - General 08/11/06 Bhavna Mac, GenesisD 870 [place] [address] Pharmacist Pharmacist 07/11/18 Isaac Bro, RN Lead Program Manager Primary Care - CC 09/01/18 Onesimo Bruno MD 1390 [place] [address] Assigned PCP 07/30/20 Nataliia Gomez MD [address] [facility], [address] [place] [address] Assigned Heart and Vascular Provider 08/29/20 10/08/22 Luly Grant MD [address] [place] [address] Assigned Allergy Provider 08/29/20 04/16/22 Rafita Ayers MD [address] [place] [address] Assigned Pulmonology Provider 10/12/20 Flo [place] MD [address] [employer] [address] [place] [address] Assigned Behavioral Health Provider 09/21/20 Jana Vick, W Community Health Worker Primary Care - CC 06/08/21 Lorri Larsen MD [address] [place] [address] Otolaryngology 07/21/21 Lorri Larsen MD [address] [place] [address] Assigned Surgical Provider 10/10/21 Rafita Ayers MD [address] [place] [address] Critical Care 11/30/21 Kaelyn New AuD 1825 [place] [address] Feather Curling Machine Operator Audiology 12/09/21 documented as of this encounter
--- OUTSIDE RECORDS SUMMARY | 2023-02-27 14:30 | XMS_ITS | Encounter Summary ---
Author Name Unknown Organization [facility] Address [address] [place] [address] Care Team Providers Care Chief Projectionist Name Role Phone Onesimo Bruno MD Primary Care Provider [phone] Bhavna Mac PharmD Unavailable [phone] Isaac Bro RN Unavailable Unavailable Onesimo Bruno MD Unavailable [phone] Nataliia Gomez MD Unavailable Rafita Ayers MD Unavailable +[phone] Flo Henry MD Unavailable [phone] Jana Vick CHW Unavailable UnavailLorri Ulloa MD Unavailable [phone] Lorri Larsen MD Unavailable [phone] Rafita Ayers MD Unavailable +[phone] Kaelyn New Unavailable [phone] Marino Hayes MD Unavailable +[phone] Marino Hayes MD Unavailable [phone] Encounter Details Date Type Department Care Team (Late st Contact Info) Description 08/09/2022 [facility] [address] [address] Malcolm Lima MA Social History Tobacco Use Types Packs/Day Years [...] st Contact Info) Description 04/04/2023 1:00 PM TRANSITIONAL LIVING SPECIALIST Virtual Visit [facility] [address] 200 [place] [address] Keke Brooks, RD 420 [facility] 84 [address] documented as of this encounter Goals Goal [...] look into working with a personal financial representative to assist me with resistance training. 5. I will report progress towards this goal at outreach telephone calls from the [facility] team Discussed 12/28/22 documented as of this encounter Visit Diagnoses Not on filedocumented in this encounter Additional Health Concerns Problem Noted Date Diagnosed Date HP GENERAL PROBLEM 11/13/2021 Assessment Noted Time PHQ-9 Depression Total Score: 8 04/16/19 23 9:42 AM TRANSITIONAL LIVING SPECIALIST documented as of this encounter Care Teams Chief Projectionist Relationship Specialty Start Date End Date Onesimo Bruno MD PCP - General 08/11/06 Bhavna Mac, GenesisD 870 [place] [address] Pharmacist Pharmacist 07/11/18 Isaac Bro, RN Lead Water Operator Primary Care - CC 09/01/18 Onesimo Bruno MD 1390 [place] [address] Assigned PCP 07/30/20 Nataliia Gomez MD [address] [place] [address], [address] [place] [address] Assigned Heart and Vascular Provider 08/29/20 10/08/22 Rafita Ayers MD [address] [place] [address] Assigned Pulmonology Provider 10/12/20 Flo Henry MD [address] [place] [address] Assigned Behavioral Health Provider 09/21/20 Jana Vick, W Community Health Worker Primary Care - CC 06/08/21 Lorri Larsen MD [address] [place] [address] Otolaryngology 07/21/21 Lorri Larsen MD 9 [place] [address] Assigned Surgical Provider 10/10/21 Rafita Ayers MD [address] [place] [address] Critical Care 11/30/21 Kaelyn New AuD [address] [place] [address] Cigar Machine Feeder Audiology 12/09/21 Marino Hayes MD [address] [place] [address] Cardiovascular Disease 09/28/22 Marino Hayes MD [address] [place] [address] Assigned Heart and Vascular Provider 10/09/22 documented as of this encounter
--- OUTSIDE RECORDS SUMMARY | 2023-02-27 14:30 | XMS_ITS | Encounter Summary ---
Author Name Unknown Organization [facility] Address [address] [place] [address]. [place] [address] Care Team Providers Care Iv Rn Name Role Phone Onesimo Bruno MD Primary Care Provider [phone] Bhavna Mac PharmD Unavailable [phone] Isaac Bro RN Unavailable Unavailable Onesimo Bruno MD Unavailable [phone] Nataliia Gomez MD Unavailable Rafita Ayers MD Unavailable +[phone] Flo Henry MD Unavailable [phone] Jana Vick CHW Unavailable Unavailabl e Lorri Larsen MD Unavailable [phone] Lorri Larsen MD Unavailable [phone] Rafita Ayers MD Unavailable [phone] Kaelyn New Unavailable [phone] Encounter Details Date Type Department Care Team (Late st Contact Info) Description 07/21/2022 Medical Correspondence [facility] Mg[facility] [address] [place] [address] Outside, Provider Social History Tobacco Use Types Packs/Day Years [...] st Contact Info) Description 04/04/2023 1:00 PM CROWN ASSEMBLY MACHINE OPERATOR Virtual Visit [facility] [address] 200 [place] [address] Keke Brooks, RD 420 [facility] 84 [place] [address] documented as of this encounter [...] I will look into working with a executive personal assistant to assist me with resistance training. 5. I will report progress towards this goal at outreach telephone calls from the [facility] team Discussed 12/28/22 documented as of this encounter Visit Diagnoses Not on filedocumented in this encounter Additional Health Concerns Problem Noted Date Diagnosed Date HP GENERAL PROBLEM 11/13/2021 Assessment Noted Time PHQ-9 Depression Total Score: 8 04/16/19 9:42 AM CROWN ASSEMBLY MACHINE OPERATOR documented as of this encounter Care Teams Iv Rn Relationship Specialty Start Date End Date Onesimo Bruno MD PCP - General 08/11/06 Bhavna Mac PharmD [address] [place] [address] Pharmacist Pharmacist 07/11/18 Isaac Bro, RN Lead Manager Welding Primary Care - CC 09/01/18 Onesimo Bruno MD 1390 [place] [address] Assigned PCP 07/30/20 Nataliia Gomez MD [address] [place] [address], [address] [place] [address] Assigned Heart and Vascular Provider 08/29/20 10/08/22 Rafita Ayers MD [address] [place] [address]25 Assigned Pulmonology Provider 10/12/20 Flo Henry MD [address] [place] [address] Assigned Behavioral Health Provider 09/21/20 Jana Vick W Community Health Worker Primary Care - CC 06/08/21 Lorri Larsen MD [address] [place] [address] Otolaryngology 07/21/21 Lorri Larsen MD [address] [place] [address]49[address] Assigned Surgical Provider 10/10/21 Rafita Ayers MD 909 [place] [address] Critical Care 11/30/21 Kaelyn New AuD [address] [place] [address] Latin Dance Instructor Audiology 12/09/21 documented as of this encounter
--- OUTSIDE RECORDS SUMMARY | 2023-02-27 14:30 | XMS_ITS | Encounter Summary ---
Author Name Unknown Organization [facility] Address [address] [place] [address] Care Team Providers Care Claims Specialist Name Role Phone Onesimo Bruno MD Primary Care Provider [phone] Bhavna Mac PharmD Unavailable [phone] Isaac Bro RN Unavailable Unavailable Onesimo Bruno MD Unavailable [phone] Nataliia Gomez MD Unavailable Rafita Ayers MD Unavailable [phone] Flo Henry MD Unavailable [phone] Jana Vick W Unavailable UnavailLorri Ulloa MD Unavailable [phone] Lorri Larsen MD Unavailable [phone] Rafita Ayers MD Unavailable [phone] Kaelyn New Unavailable [phone] Reason for Visit * Reason Onset Date Comments Medication Request 05/18/2022 [facility] Encounter Details Date Type Department Care Team (Late st Contact Info) Description 05/18/2022 [facility] Care Coordination [address] [place] [address] Isaac Bro cartography supervisor Request (Xarelto ) Social History Tobacco Use Types Packs/Day [...] Telephone Encounter - Onesimo Bruno MD - 05/18/2022 1:[address] refills for authorization. Thank you. * Telephone Encounter - Isaac Bro RN - 05/18/2022 12:55 PM CDT Shivam Bruno, Patient's Cordell called today and said patient needs a refill of his Xarelto. He is currentlydown to two tablets. Please send new prescription to the [facility] listed in his chart in [place], [place]. Thanks, Vishnu Bro RN CCC RN documented in this encounter Plan of Treatment Upcoming Encounters Date Type Department Care Team (Late st Contact Info) Description 04/04/2023 1:00 PM MACHINE ROOM ENGINEER Virtual Visit [facility] and Bariatrics Care [address] [place] [address] Keke Brooks, RD 420 [facility] 84 [place], [place] 6[address] documented as of this encounter Goals Goal [...] look into working with a personal banking assistant to assist me with resistance training. 5. I will report progress towards this goal at outreach telephone calls from the [facility] team Discussed 12/28/22 documented as of this encounter Visit Diagnoses Diagnosis Bilateral pulmonary embolism (H) Other pulmonary embolism and infarction documented in this encounter Additional Health Concerns Problem Noted Date Diagnosed Date HP GENERAL PROBLEM 11/13/2021 Assessment Noted Time PHQ-9 Depression Total Score: 8 04/16/19 23 9:42 AM MACHINE ROOM ENGINEER documented as of this encounter Care Teams Claims Specialist Relationship Specialty Start Date End Date Onesimo Bruno MD PCP - General 08/11/06 Bhavna Mac, GenesisD 870 [place] [address] Pharmacist Pharmacist 07/11/18 Isaac Bro, RN Lead Certified Respiratory Therapist Primary Care - CC 09/01/18 Onesimo Bruno MD 1390 [place] [address] Assigned PCP 07/30/20 Nataliia Gomez MD 1600 [facility], [address] [place] [address] Assigned Heart and Vascular Provider 08/29/20 10/08/22 Rafita Ayers MD 909 [place] [address] Assigned Pulmonology Provider 10/12/20 Flo Henry MD 1875 [facility] [place] [address] [place] [address] Assigned Behavioral Health Provider 09/21/20 Jana Vick, W Community Health Worker Primary Care - CC 06/08/21 Lorri Larsen MD [address] [place] [address] Otolaryngology 07/21/21 Lorri Larsen MD [address] [place] [address] Assigned Surgical Provider 10/10/21 Rafita Ayers MD [address] [place] [address] Critical Care 11/30/21 Kaelyn New, [place] 1825 [place] [address] Application Support Consultant Audiology 12/09/21 documented as of this encounter
--- OUTSIDE RECORDS SUMMARY | 2023-02-27 14:30 | XMS_ITS | Encounter Summary ---
Author Name Unknown Organization [facility] Address [address] [place] [address] Care Team Providers Care Machinery Erector Name Role Phone Onesimo Bruno MD Primary Care Provider [phone] Bhavna Mac PharmD Unavailable [phone] Isaac Bro RN Unavailable Unavailable Onesimo Bruno MD Unavailable [phone] Nataliia Gomez MD Unavailable Rafita Ayers MD Unavailable [phone] Flo Henry MD Unavailable [phone] Jana Vick CHW Unavailable UnavailLorri Ulloa MD Unavailable [phone] Lorri Larsen MD Unavailable [phone] Rafita Ayers MD Unavailable [phone] Kaelyn New Unavailable [phone] Reason for Visit * Reason Comments Medication Refill Encounter Details Date Type Department Care Team (Late st Contact Info) Description 08/06/2022 [facility] 5 [place] [phone] Flo Henry MD [address] [id number] Medication Refill Social History Tobacco Use Types [...] encounter Miscellaneous Notes * Telephone Encounter - Malcolm Lima - 08/09/2022 8:41 AM CDT Medication refill request for buPROPion (WELLBUTRIN SR) 100 MG 12 hr tablet, Last date refilled: 06/22/2022, Last Fill Quantity: 30, # refills: 3 Last office visit provider: 06/22/2022 Next appointment scheduled: None. Will send [employer] message to the pt to let him know that he is due for a f/u appt. Medication T'd for review and signature TAO Morfin on 08/09/2022 at 8:42 AM documented in this encounter Plan of Treatment Upcoming Encounters Date Type Department Care Team (Late st Contact Info) Description 04/04/2023 1:00 PM CLUB LICENSEE Virtual Visit [facility] and Bariatrics Care [address] [place] [address] Keke Brooks, RD [address] [place] [address] documented as of this encounter Goals Goal [...] goal at outreach telephone calls from the [facility] team Discussed 12/28/22 documented as of this encounter Visit Diagnoses Diagnosis Neurocognitive disorder Unspecified persistent mental disorders due to conditions classified elsewhere documented in this encounter Additional Health Concerns Problem Noted Date Diagnosed Date HP GENERAL PROBLEM 11/13/2021 Assessment Noted Time PHQ-9 Depression Total Score: 8 04/16/19 23 9:42 AM CLUB LICENSEE documented as of this encounter Care Teams Machinery Erector Relationship Specialty Start Date End Date Onesimo Bruno MD PCP - General 08/11/06 Bhavna Mac, GenesisD 870 [place] [address] Pharmacist Pharmacist 07/11/18 Isaac Bro, RN Lead Consumer Attorney Primary Care - CC 09/01/18 Onesimo Bruno MD 1390 [place] [address] Assigned PCP 07/30/20 Nataliia Gomez MD 1600 [facility], [address] [place] [address] Assigned Heart and Vascular Provider 08/29/20 10/08/22 Rafita Ayers MD 909 [place] [address] Assigned Pulmonology Provider 10/12/20 Flo Henry MD [address] [address] Assigned Behavioral Health Provider 09/21/20 Jana Vick W Community Health Worker Primary Care - CC 06/08/21 Lorri Larsen MD [address] [place] [address] Otolaryngology 07/21/21 Lorri Larsen MD [address] [place] [address] Assigned Surgical Provider 10/10/21 Rafita Ayers MD [address] [place] [address] Critical Care 11/30/21 Kaelyn New AuD 1825 [place] [address] Cluster Bore Operator Audiology 12/09/21 documented as of this encounter
--- OUTSIDE RECORDS SUMMARY | 2023-02-27 14:30 | XMS_ITS | Encounter Summary ---
Author Name Unknown Organization [facility] Address [address] [place] [address] Care Team Providers Care Tree Scout Name Role Phone Onesimo Bruno MD Primary Care Provider [phone] Bhavna Mac PharmD Unavailable [phone] Isaac Bro RN Unavailable Unavailable Onesimo Bruno MD Unavailable [phone] Nataliia Gomez MD Unavailable Rafita Ayers MD Unavailable [phone] Flo Henry MD Unavailable [phone] Jana Vick W Unavailable UnavailLorri Ulloa MD Unavailable [phone] Lorri Larsen MD Unavailable [phone] Rafita Ayers MD Unavailable [phone] Kaelyn New Unavailable [phone] Reason for Visit * Reason Comments Medication Refill Encounter Details Date Type Department Care Team (Late st Contact Info) Description 04/29/2022 Refill [facility] 1390 [place] [phone] Onesimo Bruno MD 1390 [place], [place] [id number] Medication Refill Social History Tobacco Use Types [...] Coronavirus/COVID-19? No / Unsure 04/05/2022 1:34 PM WELDER GUN documented as of this encounter Miscellaneous Notes * Telephone Encounter - Mónica Moore RN - 04/30/2022 12:34 PM CDT Last Written Prescription Date: 05/18/21 Last Fill Quantity: 90, # refills: 3 Last office visit provider: 04/15/22, Dr. Day Requested Prescriptions Pending Prescriptions Disp Refills ??? ezetimibe (ZETIA) 10 MG tablet [Pharmacy Med Name: Ezetimibe 10 MG Oral Tablet] 90 tablet 3 Sig: TAKE 1 TABLET BY MOUTH AT BEDTIME Antihyperlipidemic agents Passed - 04/29/2022 9:20 PM Passed - Lipid panel on file in past 12 mos Recent Labs Lab Test 03/18/22 0923 CHOL 133 TRIG 178* HDL 46 LDL 51 NHDL 87 Passed - Normal serum ALT on record in past 12 mos Recent Labs Lab Test 03/18/22 0923 ALT 18 Passed - Recent (12 mo) or future [...] section of the refill encounter. Passed - Medication is active on med list Passed - Patient is age 18 years or older Mónica Moore RN 04/30/22 12:34 PM documented in this encounter Plan of Treatment Upcoming Encounters Date Type Department Care Team (Late st Contact Info) Description 04/04/2023 1:00 PM WELDER GUN Virtual Visit [facility] Clinic and Bariatrics Care [place] 2945 [facility] 200 [place] [address] Keke Brooks, RD 420 [facility] 84 [place] [address] documented as of this encounter Goals Goal [...] I will look into working with a corporate sales trainer to assist me with resistance training. 5. I will report progress towards this goal at outreach telephone calls from the [facility] team Discussed 12/28/22 documented as of this encounter Visit Diagnoses Diagnosis CAD (coronary artery disease) Coronary atherosclerosis of unspecified type of vessel, [place] or graft Dyslipidemia Other and unspecified hyperlipidemia documented in this encounter Additional Health Concerns Problem Noted Date Diagnosed Date HP GENERAL PROBLEM 11/13/2021 Assessment Noted Time PHQ-9 Depression Total Score: 8 04/16/19 23 9:42 AM WELDER GUN documented as of this encounter Care Teams Tree Scout Relationship Specialty Start Date End Date Onesimo Bruno MD PCP - General 08/11/06 Bhavna Mac, Elio [address] [place] [address] Pharmacist Pharmacist 07/11/18 Isaac Bro, RN Lead Air Purifier Servicer Primary Care - CC 09/01/18 Onesimo Bruno MD [address] [place] [address] Assigned PCP 07/30/20 Nataliia Gomez MD [address] [place] [address], [address] [place] [address] Assigned Heart and Vascular Provider 08/29/20 10/08/22 Rafita Ayers MD [address] [place] [address] Assigned Pulmonology Provider 10/12/20 Flo Henry MD [address] [place] [address] Assigned Behavioral Health Provider 09/21/20 Jana Vick W Community Health Worker Primary Care - CC 06/08/21 Lorri Larsen MD [address] [place] [address] Otolaryngology 07/21/21 Lorri Larsen MD [address] [place] [address] Assigned Surgical Provider 10/10/21 Rafita Ayers MD [address] [place] [address] Critical Care 11/30/21 Kaelyn New, Shena 9969 [facility] [place] [address] Dragger Audiology 12/09/21 documented as of this encounter
--- OUTSIDE RECORDS SUMMARY | 2023-02-27 14:31 | XMS_ITS | Encounter Summary ---
Author Name Unknown Organization [facility] Address [address] [place] [address] Care Team Providers Care Senior Lead Java Developer Name Role Phone Onesimo Bruno MD Primary Care Provider [phone] Bhavna Mac PharmD Unavailable [phone] Isaac Bro RN Unavailable Unavailable Onesimo Bruno MD Unavailable [phone] Nataliia Gomez MD Unavailable Luly Grant MD Unavailable [phone] Rafita Ayers MD Unavailable [phone] Flo Henry MD Unavailable [phone] Jana Vick CHW Unavailable Unavailabl Tor Saldana DPM Unavailable [phone] Lorri Larsen MD Unavailable [phone] Lorri Larsen MD Unavailable [phone] Rafita Ayers MD Unavailable [phone] Kaelyn New Unavailable [phone] Encounter Details Date Type Department Care Team (Late st Contact Info) Description 03/19/2022 [facility] 1390 [place] [address] Onesimo Bruno MD [address]0 [place] [address] Social History Tobacco Use Types Packs/Day Years Used Date Smoking Tobacco: Never Smokeless Tobacco: Never Alcohol Use Standard Drinks/Week Comments No 0 (1 standard drink = 0.6 oz pur e alcohol) PHQ-2 Answer Date Recorded PHQ-2 Score 2 03/18/2022 Sex and Gender Information Value Date Recorded Sex Assigned at Male 05/09/2020 12:49 AM CDT Gender Identity Male 05/09/2020 12:49 AM CDT Sexual Orientation Garcia 09/17/2020 11 :45 PM CDT COVID-19 Exposure Response Date Recorded In the last 10 days, have yo u been in contact with someone who was confirmed or suspected to have Coronavirus/COVID-19? No / Unsure 03/18/2022 8:11 AM DIESEL TRACTOR OPERATOR documented as of this encounter Plan of Treatment Upcoming Encounters Date Type Department Care Team (Late st Contact Info) Description 04/04/2023 1:00 PM DIESEL TRACTOR OPERATOR Virtual Visit [facility] Surgery Clinic and Bariatrics Care [address] [place] [address] Keke Brooks, RD 420 [facility] 84 [place] [address] documented as of this encounter Goals Goal [...] will look into working with a personal driver to assist me with resistance training. 5. I will report progress towards this goal at outreach telephone calls from the [facility] team Discussed 12/28/22 documented as of this encounter Visit Diagnoses Not on filedocumented in this encounter Additional Health Concerns Problem Noted Date Diagnosed Date HP GENERAL PROBLEM 11/13/2021 Assessment Noted Time PHQ-9 Depression Total Score: 7 03/18/19 23 8:29 AM DIESEL TRACTOR OPERATOR documented as of this encounter Care Teams Senior Lead Java Developer Relationship Specialty Start Date End Date Onesimo Bruno MD PCP - General 08/11/06 Bhavna Mac, GenesisD [address] [place] [address] Pharmacist Pharmacist 07/11/18 Isaac Bro, RN Lead Matching Machine Operator Primary Care - CC 09/01/18 Onesimo Bruno MD [address]0 [place] [address] Assigned PCP 07/30/20 Nataliia Gomez MD 1600 [facility], [address] [place], [place] [address] Assigned Heart and Vascular Provider 08/29/20 10/08/22 Luly Grant MD [address] [facility] [address] [place] [address] Assigned Allergy Provider 08/29/2004/16 Rafita Ayers MD 909 [place] [address] Assigned Pulmonology Provider 10/12/20 Flo Henry MD [address] [address] Assigned Behavioral Health Provider 09/21/20 Jana Vick, W Community Health Worker Primary Care - CC 06/08/21 Tor Joseph DPM [facility]5 [facility] [address] [place] [address] Assigned Musculoskeletal Provider 07/05/21 03/19/22 Lorri Larsen MD [address] [place] [address] Otolaryngology 07/21/21 Lorri Larsen MD [address] [place] [address] Assigned Surgical Provider 10/10/21 Rafita Ayers MD [address] [place] [address] Critical Care 11/30/21 Kaelyn New, Shena [address] [place] [address] Software Release Manager Audiology 12/09/21 documented as of this encounter
--- OUTSIDE RECORDS SUMMARY | 2023-02-27 14:31 | XMS_ITS | Encounter Summary ---
Author Name Unknown Organization [place] Address [address] [place] [address] Care Team Providers Care Rf Technician Name Role Phone Onesimo Bruno MD Primary Care Provider [phone] Bhavna Mac PharmD Unavailable [phone] Isaac Bro RN Unavailable Unavailable Onesimo Bruno MD Unavailable [phone] Nataliia Gomez MD Unavailable Luly Grant MD Unavailable +[phone] Rafita Ayers MD Unavailable +[phone] Flo Henry MD Unavailable [phone] Jana Vick W Unavailable UnavailLorri Ulloa MD Unavailable [phone] Lorri Larsen MD Unavailable [phone] Rafita Ayers MD Unavailable [phone] Kaelyn New Unavailable [phone] Reason for Visit * Reason Onset Date [facility] - Annual CPAP supplies renewal or 03/23/2022 Encounter Details Date Type Department Care Team (Late st Contact Info) Description 03/23/2022 Telephone [facility] 1390 [place] [address] Onesimo Bruno MD [address] [place] [address], [place] [address] [facility] - Annual CPAP supplies renewal or Social History Tobacco Use Types Packs/Day Years [...] Coronavirus/COVID-19? No / Unsure 03/18/2022 8:11 AM CORPORATE REPRESENTATIVE documented as of this encounter Miscellaneous Notes * Telephone Encounter - Chanda Calix - 03/26/2022 10:06 AM CST March 26, 2022 [facility] Forms: [facility] - Annual CPAP Supplies received from outbox of [facility] Providers: Dr. Bruno. Paperwork has been reviewed and is complete. Per initial initial request, this was sent via fax to [phone]. Chanda Calix ORATE REPRESENTATIVE * Telephone Encounter - Chanda Calix - 03/23/2022 2:11 PM CST March 23, 2022 [facility] Forms: [facility] - Annual CPAP Supplies Renewal order were received via fax for [facility] Providers: Dr. Bruno to sign. Patient label was attached to paperworkand placed in provider's inbox to be signed. Chanda Calix ORATE REPRESENTATIVE documented in this encounter Plan of Treatment Upcoming Encounters Date Type Department Care Team (Late st Contact Info) Description 04/04/2023 1:00 PM CORPORATE REPRESENTATIVE Virtual Visit [facility] [address] [place] [phone] Keke Brooks, RD 420 [facility] 84 [place] [address] documented as of this encounter Goals Goal [...] I will look into working with a household personal assistant to assist me with resistance [...] Total Score: 7 03/18/19 23 8:29 AM CORPORATE REPRESENTATIVE documented as of this encounter Care Teams Rf Technician Relationship Specialty Start Date End Date Onesimo Bruno MD PCP - General 08/11/06 Bhavna Mac PharmD [address] [place], [place] [id number] Pharmacist Pharmacist 07/11/18 Isaac Bro, RN Lead Senior Auditor Primary Care - CC 09/01/18 Onesimo Bruno MD 1390 [place] [address] Assigned PCP 07/30/20 Nataliia Gomez MD [address] [employer], [address] [place] [address] Assigned Heart and Vascular Provider 08/29/20 10/08/22 Luly Grant MD [address] [place] [address] Assigned Allergy Provider 08/29/20 04/16/22 Rafita Ayers MD [address] [place] [address] Assigned Pulmonology Provider 10/12/20 Flo Henry MD 1875 [facility] [place] [address] [place] [address] Assigned Behavioral Health Provider 09/21/20 Jana Vick, W Community Health Worker Primary Care - CC 06/08/21 Lorri Larsen MD [address] [place] [address] Otolaryngology 07/21/21 Lorri Larsen MD [address] [place] [address] Assigned Surgical Provider 10/10/21 Rafita Ayers MD [address] [place] [address] Critical Care 11/30/21 Kaelyn New, AuD [address]25 [place] [address] Set Making Machine Operator Audiology 12/09/21 documented as of this encounter
--- OUTSIDE RECORDS SUMMARY | 2023-02-27 14:31 | XMS_ITS | Encounter Summary ---
Author Name Unknown Organization [place] Address [address] [place] [address] Care Team Providers Care Shearer [employer] Boards Name Role Phone Onesimo Bruno MD Primary Care Provider [phone] Bhavna MacD Unavailable [phone] Isaac Bro RN Unavailable Unavailable Onesimo Bruno MD Unavailable [phone] Nataliia Gomez MD Unavailable Luly Grant MD Unavailable +[phone] Rafita Ayers MD Unavailable [phone] Flo Henry MD Unavailable [phone] Jana Vick CHW Unavailable Unavailabl Tor Saldana DPM Unavailable +[phone] Lorri Larsen MD Unavailable [phone] Lorri Larsen MD Unavailable [phone] Rafita Ayers MD Unavailable +[phone] Kaelyn New Unavailable +[phone] Marino Hayes MD Unavailable + [phone] Marino Hayes MD Unavailable [phone] Encounter Details Date Type Department Care Team (Late st Contact Info) Description 03/05/2022 [facility] [address] [place] [address] Chandler Day MD [address] [place] [address] Social History Tobacco Use Types Packs/Day Years Used Date Smoking Tobacco: Never Smokeless Tobacco: Never Alcohol Use Standard Drinks/Week Comments No 0 (1 standard drink = 0.6 oz pur e alcohol) PHQ-2 Answer Date Recorded PHQ-2 Score 2 11/30/2021 Sex and Gender Information Value Date Recorded Sex Assigned at Male 05/09/2020 12:49 AM CDT Gender Identity Male 05/09/2020 12:49 AM CDT Sexual Orientation Garcia 09/17/2020 11 :45 PM CDT COVID-19 Exposure Response Date Recorded In the last 10 days, have yo u been in contact with someone who was confirmed or suspected to have Coronavirus/COVID-19? No / Unsure 03/02/2022 12:59 AM TANK WAGON OPERATOR documented as of this encounter Miscellaneous Notes * Telephone Encounter - Rishabh Guerra RN - 03/08/2022 8:59 AM CST Last OV 05/06/20 Virtual return MW 04/15/22 WAGON OPERATOR documented in this encounter Plan of Treatment Upcoming Encounters Date Type Department Care Team (Late st Contact Info) Description 04/04/2023 1:00 PM TANK WAGON OPERATOR Virtual Visit [facility] [address] [place] [address] Keke Brooks, RD 420 [facility] 84 [place], [place] [address] documented as of this encounter Goals Goal [...] I will look into working with a link trainer maintenance man to assist me with resistance training. 5. I will report progress towards this goal at outreach telephone calls from the [facility] team Discussed 12/28/22 documented as of this encounter Visit Diagnoses Not on filedocumented in this encounter Additional Health Concerns Problem Noted Date Diagnosed Date HP GENERAL PROBLEM 11/13/2021 Assessment Noted Time PHQ-9 Depression Total Score: 13 024 7:09 AM TANK WAGON OPERATOR documented as of this encounter Care Teams [employer] Relationship Specialty Start Date End Date Onesimo Bruno MD PCP - General 08/11/06 Bhavna Mac, PharmD 870 [place] [address] Pharmacist Pharmacist 07/11/18 Isaac Bro, RN Lead Energy Scheduler Primary Care - CC 09/01/18 Onesimo Bruno MD 1390 [place] [address] Assigned PCP 07/30/20 Nataliia Gomez MD 1600 [facility], [address] [place] [address] Assigned Heart and Vascular Provider 08/29/20 10/08/22 Luly Grant MD [address] [facility] [address] [place] [address] Assigned Allergy Provider 08/29/20 04/16/22 Rafita Ayers MD [address] [place] [address] Assigned Pulmonology Provider 10/12/20 Flo Henry MD [address] [address] Assigned Behavioral Health Provider 09/21/20 Jana iVck, W Community Health Worker Primary Care - CC 06/08/21 Tor Joseph DPM 2945 [facility] [address] [address] Assigned Musculoskeletal Provider 07/05/21 03/19/22 Lorri Larsen MD [address] [place] [address] Otolaryngology 07/21/21 Lorri Larsen MD [address] [place] [address] Assigned Surgical Provider 10/10/21 Rafita Ayers MD [address] [place] [address] Critical Care 11/30/21 Kaelyn New, [place] [address]25 [place] [address] Planning Rn Audiology 12/09/21 Marino Hayes MD [address] [place] [address] Cardiovascular Disease 09/28/22 Marino Hayes MD 6 [place] [address] Assigned Heart and Vascular Provider 10/09/22 documented as of this encounter
--- OUTSIDE RECORDS SUMMARY | 2023-02-27 14:31 | XMS_ITS | Encounter Summary ---
Author Name Unknown Organization [facility] Address [address] [place] [address] Care Team Providers Care Quality Reviewer Name Role Phone Onesimo Bruno MD Primary Care Provider [phone] Bhavna Mac PharmD Unavailable [phone] Isaac Bro RN Unavailable Unavailable Onesimo Bruno MD Unavailable [phone] Nataliia Gomez MD Unavailable Luly Grant MD Unavailable [phone] Rafita Ayers MD Unavailable [phone] Flo Henry MD Unavailable [phone] Jana Vick CHW Unavailable UnavailTor Brown DPM Unavailable [phone] Lorri Larsen MD Unavailable [phone] Lorri Larsen MD Unavailable [phone] Rafita Ayers MD Unavailable [phone] Kaelyn New AuD Unavailable [phone] Encounter Details Date Type Department Care Team (Latest Contact Info) Description 03/16/2022 Travel Social History Tobacco Use Types Packs/Day [...] suspected to have Coronavirus/COVID-19? No / Unsure 03/16/2022 12:28 PM STEAM ENGINEER documented as of this encounter Plan of Treatment Upcoming Encounters Date Type Department Care Team (Late st Contact Info) Description 04/04/2023 1:00 PM STEAM ENGINEER Virtual Visit [facility] [address] 200 [place] [address] Keke Brooks, RD 420 [facility] 84 [place] [address] documented as of this encounter [...] I will look into working with a certified personal finance counselor to assist me with resistance training. 5. I will report progress towards this goal at outreach telephone calls from the [facility] team Discussed 12/28/22 documented as of this encounter Visit Diagnoses Not on filedocumented in this encounter Additional Health Concerns Problem Noted Date Diagnosed Date HP GENERAL PROBLEM 11/13/2021 Assessment Noted Time PHQ-9 Depression Total Score: 13 024 7:09 AM STEAM ENGINEER documented as of this encounter Care Teams Quality Reviewer Relationship Specialty Start Date End Date Onesimo Bruno MD PCP - General 08/11/06 Bhavna Mac, GenesisD [address]70 [place] [address] Pharmacist Pharmacist 07/11/18 Isaac Bro, RN Lead Lease Administration Analyst Primary Care - CC 09/01/18 Onesimo Bruno MD 1390 [place] [address] Assigned PCP 07/30/20 Nataliia Gomez MD 1600 [facility], [address] [place] [address] Assigned Heart and Vascular Provider 08/29/20 10/08/22 Luly Grant MD 1655 [facility] [address] [place], [place] [address] Assigned Allergy Provider 08/29/2004/16 Rafita Ayers MD 909 [place] [address] Assigned Pulmonology Provider 10/12/20 Flo Henry MD 1875 [facility] Ste[place] [address] [place] [address] Assigned Behavioral Health Provider 09/21/20 Jana Vick, W Community Health Worker Primary Care - CC 06/08/21 Tor Joseph DPM 2945 [facility] [address] [place] [address] Assigned Musculoskeletal Provider 07/05/21 03/19/22 Lorri Larsen MD [address] [place] [address] Otolaryngology 07/21/21 Lorri Larsen MD [address] [place] [address] Assigned Surgical Provider 10/10/21 Rafita Ayers MD [address] [place] [address] 393915 Critical Care 11/30/21 Kaelyn New AuD [address] [place] [address] Hybrid Powertrain Development Engineer Audiology 12/09/21 documented as of this encounter
--- OUTSIDE RECORDS SUMMARY | 2023-02-27 14:31 | XMS_ITS | Encounter Summary ---
Author Name Unknown Organization [facility] Address [address] [place] [address] Care Team Providers Care Commercial Insurance Underwriter Name Role Phone Onesimo Bruno MD Primary Care Provider [phone] Bhavna Mac PharmD Unavailable [phone] Isaac Bro RN Unavailable Unavailable Onesimo Bruno MD Unavailable [phone] Nataliia Gomez MD Unavailable Luly Grant MD Unavailable [phone] Rafita Ayers MD Unavailable +[phone] Flo Henry MD Unavailable [phone] Jana Vick W Unavailable UnavailLorri Ulloa MD Unavailable [phone] Lorri Larsen MD Unavailable [phone] Rafita Ayers MD Unavailable [phone] Kaelyn New Unavailable [phone] Reason for Visit * Reason Onset Date Comments Refill Request 03/22/2022 Encounter Details Date Type Department Care Team (Late st Contact Info) Description 03/22/2022 Refill [facility] 1390 [place] [phone] Onesimo Bruno MD 1390 [place] [address] Refill Request Social History Tobacco Use Types [...] Coronavirus/COVID-19? No / Unsure 03/18/2022 8:11 AM FILM OR VIDEOTAPE EDITOR documented as of this encounter Miscellaneous Notes * Telephone Encounter - Rosa Clay RN - 03/23/2022 2:42 PM CST New pharmacy requested, pharmacy change Last Written Prescription Date: 03/18/22 Last Fill Quantity: 90, # refills: 3 Last office visit provider: 03/18/22 Requested Prescriptions Pending Prescriptions Disp Refills ??? rosuvastatin (CRESTOR) 40 MG tablet 90 tablet 3 Sig: [ROSUVASTATIN (CRESTOR) 40 MG TABLET] TAKE 1 TABLET BY MOUTH DAILY Statins Protocol Passed - 03/23/2022 2:42 PM Passed - LDL on file in past 12 months Recent Labs Lab Test 03/18/22 0923 LDL 51 Passed - No abnormal creatine kinase in past 12 months No lab results found. Passed - Recent (12 mo) or future [...] list Passed - Patient is age 18 or older ROSA CLAY RN 03/23/22 2:42 PM OR VIDEOTAPE EDITOR documented in this encounter Plan of Treatment Upcoming Encounters Date Type Department Care Team (Late st Contact Info) Description 04/04/2023 1:00 PM FILM OR VIDEOTAPE EDITOR Virtual Visit [facility] [address] 200 [place] [address] Keke Brooks, RD 420 [facility] 84 [place] [address] documented as of this encounter Goals Goal [...] I will look into working with a athletic trainer to assist me with resistance training. 5. 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 documented in this encounter Additional Health Concerns Problem Noted Date Diagnosed Date HP GENERAL PROBLEM 11/13/2021 Assessment Noted Time PHQ-9 Depression Total Score: 7 03/18/19 8:29 AM FILM OR VIDEOTAPE EDITOR documented as of this encounter Care Teams Commercial Insurance Underwriter Relationship Specialty Start Date End Date Onesimo Bruno MD PCP - General 08/11/06 Bhavna Mac PharmD 870 [place] [address] Pharmacist Pharmacist 07/11/18 Isaac Bro, RN Lead Grounds Restoration Specialist Primary Care - CC 09/01/18 Onesimo Bruno MD 1390 [place] [address] Assigned PCP 07/30/20 Nataliia Gomez MD 1600 [facility], [address] [place], [place] [address] Assigned Heart and Vascular Provider 08/29/20 10/08/22 Luly Grant MD 1655 [facility] [address] [place], [place] [address] Assigned Allergy Provider 08/29/20 04/16/22 Rafita Ayers MD [address] [place] [address] Assigned Pulmonology Provider 10/12/20 Flo Henry MD [address] [place] [address] Assigned Behavioral Health Provider 09/21/20 Jana Vick W Community Health Worker Primary Care - CC 06/08/21 Lorri Larsen MD [address] [place] [address] Otolaryngology 07/21/21 Lorri Larsen MD [address] [place] [address] Assigned Surgical Provider 10/10/21 Rafita Ayers MD [address] [place] [address] Critical Care 11/30/21 Kaelyn New AuD [address] [place] [address] Boss Dyer Audiology 12/09/21 documented as of this encounter
--- OUTSIDE RECORDS SUMMARY | 2023-02-27 14:31 | XMS_ITS | Encounter Summary ---
Author Name Unknown Organization [place] Address [address] [place] [address] Care Team Providers Care Solar Thermal Installer Name Role Phone Onesimo Bruno MD Primary Care Provider [phone] Bhavna MacD Unavailable [phone] Isaac Bro RN Unavailable Unavailable Onesimo Bruno MD Unavailable [phone] Nataliia Gomez MD Unavailable Luly Grant MD Unavailable [phone] Rafita Ayers MD Unavailable [phone] Flo Henry MD Unavailable [phone] Jana Vick CHW Unavailable Unavailabl Tor Saldana DPM Unavailable +[phone] Lorri Larsen MD Unavailable [phone] Lorri Larsen MD Unavailable [phone] Rafita Ayers MD Unavailable [phone] Kaelyn New Unavailable [phone] Reason for Visit * Reason Onset Date Comments Refill Request 03/10/2022 Encounter Details Date Type Department Care Team (Late st Contact Info) Description 03/10/2022 [place] 1600 [facility] [address] [place] [address] Amy Hernandez, RN Refill Request Social History Tobacco Use Types [...] Coronavirus/COVID-19? No / Unsure 03/02/2022 12:59 AM LANGUAGE ASSISTANT documented as of this encounter Plan of Treatment Upcoming Encounters Date Type Department Care Team (Late st Contact Info) Description 04/04/2023 1:00 PM LANGUAGE ASSISTANT Virtual Visit [facility] [address] [place] [phone] Keke Brooks, RD 420 [facility] 84 [place] [address] documented as of this encounter [...] look into working with a personal financial counselor to assist me with resistance training. [...] Depression Total Score: 13 024 7:09 AM LANGUAGE ASSISTANT documented as of this encounter Care Teams Solar Thermal Installer Relationship Specialty Start Date End Date Onesimo Bruno MD PCP - General 08/11/06 Bhavna Mac, GenesisD 870 [place] [address] Pharmacist Pharmacist 07/11/18 Isaac Bro, RN Lead Geospatial Specialist Primary Care - CC 09/01/18 Onesimo Bruno MD 1390 [place] [address] Assigned PCP 07/30/20 Nataliia Gomez MD 1600 [facility], [address] [place] [address] Assigned Heart and Vascular Provider 08/29/20 10/08/22 Luly Grant MD 1655 [facility] [address] [place] [address] Assigned Allergy Provider 08/29/2004/16 Rafita Ayers MD 909 [place] [address] Assigned Pulmonology Provider 10/12/20 Flo Henry MD 1875 [facility] [address] [place] [address] Assigned Behavioral Health Provider 09/21/20 Jana Vick, W Community Health Worker Primary Care - CC 06/08/21 Tor Joseph DPM [facility]5 [facility] [address] [place] [address] Assigned Musculoskeletal Provider 07/05/21 03/19/22 Lorri Larsen MD [address] [place] [address] Otolaryngology 07/21/21 Lorri Larsen MD [address] [place] [address] Assigned Surgical Provider 10/10/21 Rafita Ayers MD [address] [place] [address] Critical Care 11/30/21 Kaelyn New, [place] [address] [place] [address] Insurance Analyst Audiology 12/09/21 documented as of this encounter
--- OUTSIDE RECORDS SUMMARY | 2023-02-27 14:31 | XMS_ITS | Encounter Summary ---
Author Name Unknown Organization [facility] Address [address] [place] [address] Care Team Providers Care Cushion Maker Hand Name Role Phone Onesimo Bruno MD Primary Care Provider [phone] Bhavna Mac PharmD Unavailable [phone] Isaac Bro RN Unavailable Unavailable Onesimo Bruno MD Unavailable [phone] Nataliia Gomez MD Unavailable Luly Grant MD Unavailable [phone] Rafita Ayers MD Unavailable [phone] Flo Henry MD Unavailable [phone] Jana Vick CHW Unavailable Unavailkristen e Lorri Larsen MD Unavailable +[phone] Lorri Larsen MD Unavailable [phone] Rafita Ayers MD Unavailable [phone] Kaelyn New AuD Unavailable [phone] Encounter Details Date Type Department Care Team (Latest Contact Info) Description 04/05/2022 Travel Social History Tobacco Use Types Packs/Day [...] Coronavirus/COVID-19? No / Unsure 04/05/2022 1:34 PM FACILITY MANAGER HISTOLOGY documented as of this encounter Plan of Treatment Upcoming Encounters Date Type Department Care Team (Late st Contact Info) Description 04/04/2023 1:00 PM FACILITY MANAGER HISTOLOGY Virtual Visit [facility] [address] [place] [address] Keke Brooks, RD 420 [facility] 84 [place] [address] documented as of this encounter Goals Goal [...] goal at outreach telephone calls from the [facility] team Discussed 12/28/22 documented as of this encounter Visit Diagnoses Not on filedocumented in this encounter Additional Health Concerns Problem Noted Date Diagnosed Date HP GENERAL PROBLEM 11/13/2021 Assessment Noted Time PHQ-9 Depression Total Score: 7 03/18/19 8:29 AM FACILITY MANAGER HISTOLOGY documented as of this encounter Care Teams Cushion Maker Hand Relationship Specialty Start Date End Date Onesimo Bruno MD PCP - General 08/11/06 Bhavna Mac, GenesisD 870 [place] [address] Pharmacist Pharmacist 07/11/18 Isaac Bro, RN Lead Motor Equipment Captain Primary Care - CC 09/01/18 Onesimo Bruno MD 1390 [place] [address] Assigned PCP 07/30/20 Nataliia Gomez MD [address] [place] [address], [address] [place] [address] Assigned Heart and Vascular Provider 08/29/20 10/08/22 [place] [address] [place] [address] [address] [place] [address] Assigned Allergy Provider 08/29/20 04/16/22 Rafita Ayers MD [address] [place] [address] Assigned Pulmonology Provider 10/12/20 Flo Henry MD [facility] [address] Assigned Behavioral Health Provider 09/21/20 Jana Vick, W Community Health Worker Primary Care - CC 06/08/21 Lorri Larsen MD [address] [place] [address] Otolaryngology 07/21/21 Lorri Larsen MD 909 [place] [address] Assigned Surgical Provider 10/10/21 Rafita Ayers MD 909 [place] [address] Critical Care 11/30/21 Kaelyn New AuD 1825 [place] [address] Poultry Feed Supervisor Audiology 12/09/21 documented as of this encounter
--- OUTSIDE RECORDS SUMMARY | 2023-02-27 14:31 | XMS_ITS | Encounter Summary ---
Author Name Unknown Organization [place] Address [address] [place] [address] Care Team Providers Care Vice President Of Compliance Name Role Phone Onesimo Bruno MD Primary Care Provider [phone] Bhavna Mac PharmD Unavailable [phone] Isaac Bro RN Unavailable Unavailable Onesimo Bruno MD Unavailable [phone] Nataliia Gomez MD Unavailable Luly Grant MD Unavailable [phone] Rafita Ayers MD Unavailable [phone] Flo Henry MD Unavailable [phone] Jana Vick CHW Unavailable Unavailabl Tor Saldana DPM Unavailable [phone] Lorri Larsne MD Unavailable [phone] Lorri Larsen MD Unavailable [phone] Rafita Ayers MD Unavailable [phone] Kaelyn New Unavailable [phone] Reason for Visit * Reason Comments Follow Up 3 mo follow up - juan ramon batista today (pt reports that he's doing well with pulm rehab) Encounter Details Date Type Department Care Team (Late st Contact Info) Description 03/18/2022 8:20 AM BIOLOGICAL PHOTOGRAPHER Office Visit [address] [place] [address] Onesimo Bruno MD [address] [place] [address] Bilateral pulmonary embolism (H) (Primary Dx); Moderate persistent asthma without complication; Morbid obesity (H); 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 No / Unsure 03/18/2022 8:11 AM BIOLOGICAL PHOTOGRAPHER documented as of this encounter Last Filed Vital Signs Vital Sign Reading Time Taken Comments Blood Pressure 118/64 03/18/2022 8:24 AM BIOLOGICAL PHOTOGRAPHER Pulse 79 03/18/2022 8:24 AM BIOLOGICAL PHOTOGRAPHER Temperature 36.8 ??C (98.2 ??F) 03/18/2022 8:24 AM CS T Respiratory Rate 18 03/18/2022 8:24 AM BIOLOGICAL PHOTOGRAPHER Oxygen Saturation 96% 03/18/2022 8:24 AM BIOLOGICAL PHOTOGRAPHER Inhaled Oxygen Concentration - - Weight 140.2 kg (309 lb) 03/18/2022 8:24 AM BIOLOGICAL PHOTOGRAPHER Height 182.9 cm (6') 03/18/2022 8:24 AM BIOLOGICAL PHOTOGRAPHER Body Mass Index 41.91 03/18/2022 8:24 AM BIOLOGICAL PHOTOGRAPHER documented in this encounter Progress Notes * Onesimo Bruno MD - 03/18/2022 8:20 AM CST 1. Bilateral pulmonary embolism (H) Continue with lifelong Xarelto. Continue with pulmonary rehab - CBC with platelets; Future 2. Moderate persistent asthma without complication As above. Continue pulmonary rehab. 3. Morbid obesity (H) He will be meeting with weight loss clinic soon. A GLP-1 agonist would be excellent. He is off the metformin due to stomach intolerance 4. 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 Continue medications - rosuvastatin (CRESTOR) 40 MG tablet; [ROSUVASTATIN (CRESTOR) 40 MG TABLET] TAKE 1 TABLET BY MOUTHDAILY Dispense: 90 tablet; Refill: 3 - Lipid panel reflex to direct LDL Fasting; Future - Comprehensive metabolic panel (BMP + Alb, Alk Phos, ALT, AST, Total. Bili, TP); Future 5. Stage 3a chronic kidney disease (H) Labs for monitoring - Albumin Random Urine Quantitative with Creat Ratio; Future 6. Traumatic brain injury with loss of consciousness, sequela (H) Continue follow-up with his brain injury providers 7. Mild neurocognitive disorder due to traumatic brain injury As above. Continue follow-up with his brain injury providers. 8. Prediabetes A1c today for monitoring - Hemoglobin A1c; Future 9. Bipolar affective disorder, remission status unspecified (H) - Valproic acid; Future Subjective Roegr is a 71 year old, presenting for the following health issues: Follow Up (3 mo follow up - fasting today (pt reports that he's doing well with pulm rehab) ) History of Present Illness Asthma: He presents for follow up of asthma. He has some cough, some wheezing, and some shortness of breath. He is using a relief medication daily. He does not miss any doses of his controller medication throughout the week.Patient is aware of the following triggers: cold air, dust mites and humidity. The patient has not had a visit to the Emergency Room, Urgent Care or Hospital due to asthma since the last clinic visit. Mental Health Follow-up: Patient presents to follow-up on Depression & Anxiety.Patient's depression since last visit has been: Good The patient is having other symptoms associated with depression. Patient's anxiety since last visit has been: Good The patient is not having other symptoms associated with anxiety. Any significant life events: No and grief or loss Patient is not feeling anxious or having panic attacks. Patient has no concerns about alcohol or drug use. Hypertension: He presents for follow up of hypertension. He does check blood pressure regularly outside of the clinic. Outpatient blood pressures have not been over 140/90. He follows a low salt diet. Vascular Disease: He presents for follow up of vascular disease. He is not taking daily aspirin. Today's PHQ-9 PHQ-9 Total Score: 7 PHQ-9 Q9 Thoughts of better off /self-harm past 2 weeks : Not at all How difficult have these problems made it for you to do your work, take care of things at home, or get along with other people: Not difficult at all Today's MITZI-7 Score: 4 Roger comes in today for follow-up. He arrived late to his appointment. Actually he did not even show up for his appointment but we are able to make time for him today. He reports he has been doing okay. He is doing pulmonary rehab. He does have an appointment with the weight loss clinic but not until April. He continues to follow closely with his mental health providers. He tries to stay activewith scholarly pursuits. He is learning [place] and other languages. He did just see his database engineer who felt no further changes were going to be necessary. He denies other new somatic concerns forme. Mood has been good. He thinks he needs a valproic acid level today. Review of Systems Objective BP 118/64 (BP Location: Left arm, Patient Position: Sitting, Cuff Size: Adult Regular) Pulse 79 Temp 98.2 ??F (36.8 ??C) Resp 18 Ht 1.829 m (6') Wt 140.2 kg (309 lb) SpO2 96% BMI 41.91 kg/m?? Body mass index is 41.91 kg/m??. Physical Exam Pleasant obese gentleman in no distress. Heart is regular. Lungs are clear. OGICAL PHOTOGRAPHER documented in this encounter Plan of Treatment Upcoming Encounters Date Type Department Care Team (Late st Contact Info) Description 04/04/2023 1:00 PM BIOLOGICAL PHOTOGRAPHER Virtual Visit [facility] Surgery Clinic and Bariatrics Care [address] [address] Keke Brooks, RD [address] [facility] [address] [place] [address] documented as of this encounter Goals Goal [...] will look into working with a personal secretary to assist me with resistance training. 5. I will report progress towards this goal at outreach telephone calls from the [facility] team Discussed 12/28/22 documented as of this encounter Procedures Procedure Name Priority Date/Time Associated Diagnosis Comments VALPROIC ACID Routine 03/18/2022 9:23 AM BIOLOGICAL PHOTOGRAPHER Bipolar affective disorder, remission status unspecified (H) ALBUMIN RANDOM URINE QUANTITATIVE Routine 03/18/2022 9:23 AM BIOLOGICAL PHOTOGRAPHER Stage 3a chronic kidney disease (H) LIPID REFLEX TO DIRECT LDL PANEL Routine 03/18/2022 9:23 AM BIOLOGICAL PHOTOGRAPHER Atherosclerosis of oneida coronary artery 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 HEMOGLOBIN A1C Routine 03/18/2022 9:23 AM BIOLOGICAL PHOTOGRAPHER Prediabetes COMPREHENSIVE METABOLIC PANEL Routine 03/18/2022 9:23 AM BIOLOGICAL PHOTOGRAPHER Atherosclerosis of oneida coronary artery 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 CBC WITH PLATELETS Routine 03/18/2022 9: 23 AM BIOLOGICAL PHOTOGRAPHER Bilateral pulmonary embolism (H) documented in this encounter Results * (ABNORMAL) Valproic acid (03/18/2022 9:23 AM BIOLOGICAL PHOTOGRAPHER) Valproic acid 47.1(L) ug/mL 03/18/2022 6:12 PM BIOLOGICAL PHOTOGRAPHER [facility] Comment: Therapeutic Range: 50-100 ug/mL Epilepsy and jose juan patients: 50-125 ug/mL Some patients require and can tolerate values up to 150 ug/mL Critical: Greater than 150 ug/mL Blood STRUCTURE OF RIGHT UPPER LIMB / Unknown Venipuncture / Unknown 03/18/2022 9:23 AM BIOLOGICAL PHOTOGRAPHER 03/18/2022 9:23 AM BIOLOGICAL PHOTOGRAPHER Onesimo Bruno MD LAB - BLOOD ORDERABL ES [facility] [address] [facility], [address] [place] [address], [facility] [phone] * (ABNORMAL) Comprehensive metabolic panel (BMP + Alb, Alk Phos, ALT, AST, Total. Bili, TP) (03/18/2022 9:23 AM BIOLOGICAL PHOTOGRAPHER) Sodium 142 136 - 145 mmol/L 03/18/2022 4:45 PM BIOLOGICAL PHOTOGRAPHER [facility] Potassium 4.6 3.4 - 5.3 mmol/L 03/18/2022 4:45 PM BIOLOGICAL PHOTOGRAPHER [facility] Chloride 104 98 - 107 mmol/L 03/18/2022 4:45 PM BIOLOGICAL PHOTOGRAPHER [facility] Carbon Dioxide (CO2) 26 22 - 29 mmol/L 03/18/2022 4:45 PM BIOLOGICAL PHOTOGRAPHER [facility] Anion Gap 12 7 - 15 mmol/L 03/18/2022 4:45 PM BIOLOGICAL PHOTOGRAPHER [facility] Urea Nitrogen 19.9 8.0 - 23.0 mg/dL 03/18/2022 4:45 PM BIOLOGICAL PHOTOGRAPHER [facility] Creatinine 1.22(H) 0.67 - 1.17 mg/dL 03/18/2022 4:45 PM BIOLOGICAL PHOTOGRAPHER [facility] Calcium 9.4 8.8 - 10.2 mg/dL 03/18/2022 4:45 PM BIOLOGICAL PHOTOGRAPHER [facility] Glucose 100(H) 70 - 99 mg/dL 03/18/2022 4:45 PM BIOLOGICAL PHOTOGRAPHER [facility] Alkaline Phosphatase 57 40 - 129 U/L 03/18/2022 4:45 PM BIOLOGICAL PHOTOGRAPHER [facility] AST 24 10 - 50 U/L 03/18/2022 4:45 PM BIOLOGICAL PHOTOGRAPHER [facility] ALT 18 10 - 50 U/L 03/18/2022 4:45 PM BIOLOGICAL PHOTOGRAPHER [facility] Protein Total 6.4 6.4 - 8.3 g/dL 03/18/2022 4:45 PM BIOLOGICAL PHOTOGRAPHER [facility] Albumin 3.8 3.5 - 5.2 g/dL 03/18/2022 4:45 PM BIOLOGICAL PHOTOGRAPHER [facility] Bilirubin Total 0.7 <=1.2 mg/dL 03/18/2022 4:45 PM BIOLOGICAL PHOTOGRAPHER [facility] GFR Estimate 64 >60 mL/min/1.7 3m2 03/18/2022 4:45 PM BIOLOGICAL PHOTOGRAPHER [facility] Comment:eGFR calculated usin 2020 CKD-EPI equation. Blood STRUCTURE OF RIGHT UPPER LIMB / Unknown Venipuncture / Unknown 03/18/2022 9:23 AM BIOLOGICAL PHOTOGRAPHER 03/18/2022 9:23 AM BIOLOGICAL PHOTOGRAPHER Onesimo Bruno MD LAB - BLOOD ORDERABL ES [facility] [address] [facility], [address] [address], [facility] [phone] * (ABNORMAL) Lipid panel reflex to direct LDL Fasting (03/18/2022 9:23 AM BIOLOGICAL PHOTOGRAPHER) Cholesterol 133 <200 mg/dL 03/18/2022 4:45 PM BIOLOGICAL PHOTOGRAPHER [facility] Triglycerides 178(H) <150 mg/dL 03/18/2022 4:45 PM BIOLOGICAL PHOTOGRAPHER [facility] Direct Measure HDL 46 >=40 mg/dL 03/18/2022 4:45 PM BIOLOGICAL PHOTOGRAPHER [facility] LDL Cholesterol Calculated 51 <=100 mg/dL 03/18/2022 4:45 PM BIOLOGICAL PHOTOGRAPHER [facility] Non HDL Cholesterol 87 <130 mg/dL 03/18/2022 4:45 PM BIOLOGICAL PHOTOGRAPHER [facility] Blood STRUCTURE OF RIGHT UPPER LIMB / Unknown Venipuncture / Unknown 03/18/2022 9:23 AM BIOLOGICAL PHOTOGRAPHER 03/18/2022 9:23 AM BIOLOGICAL PHOTOGRAPHER Narrative [facility] - 03/18/2022 4:45 PM BIOLOGICAL PHOTOGRAPHER Cholesterol Desirable: ??<200 mg/dL Triglycerides Normal: ??Less [...] LAB - BLOOD ORDERABL ES [facility] [address] [facility], [address] [id number] [phone] * (ABNORMAL) Hemoglobin A1c (03/18/2022 9:23 AM BIOLOGICAL PHOTOGRAPHER) Hemoglobin A1C 6.0(H) 0.0 - 5.6 % 03/18/2022 9:44 AM BIOLOGICAL PHOTOGRAPHER [facility] Comment: Normal <5.7% Prediabetes 5.7-6.4% ?? Diabetes 6.5% or higher Note: Adopted from ADA consensus guidelines. Blood STRUCTURE OF RIGHT UPPER LIMB / Unknown Venipuncture / Unknown 03/18/2022 9:23 AM BIOLOGICAL PHOTOGRAPHER 03/18/2022 9:23 AM BIOLOGICAL PHOTOGRAPHER Onesimo Bruno MD LAB - BLOOD ORDERABL ES [facility] [address] [place], [place] [address] [place] [address] * CBC with platelets (03/18/2022 9:23 AM BIOLOGICAL PHOTOGRAPHER) WBC Count 5.3 4.0 - 11.0 10e3/uL 03/18/2022 9:25 AM BIOLOGICAL PHOTOGRAPHER [facility] RBC Count 4.55 4.40 - 5.90 10e6/uL 03/18/2022 9:25 AM BIOLOGICAL PHOTOGRAPHER [facility] Hemoglobin 14.1 13.3 - 17.7 g/dL 03/18/2022 9:25 AM BIOLOGICAL PHOTOGRAPHER [facility] Hematocrit 42.8 40.0 - 53.0 % 03/18/2022 9:25 AM BIOLOGICAL PHOTOGRAPHER [facility] MCV 94 78 - 100 fL 03/18/2022 9:25 AM BIOLOGICAL PHOTOGRAPHER [facility] MCH 31.0 26.5 - 33.0 pg 03/18/2022 9:25 AM BIOLOGICAL PHOTOGRAPHER [facility] MCHC 32.9 31.5 - 36.5 g/dL 03/18/2022 9:25 AM BIOLOGICAL PHOTOGRAPHER [facility] RDW 13.3 10.0 - 15.0 % 03/18/2022 9:25 AM BIOLOGICAL PHOTOGRAPHER [facility] Platelet Count 170 150 - 450 10e3/uL 03/18/2022 9:25 AM BIOLOGICAL PHOTOGRAPHER [facility] Blood STRUCTURE OF RIGHT UPPER LIMB / Unknown Venipuncture / Unknown 03/18/2022 9:23 AM BIOLOGICAL PHOTOGRAPHER 03/18/2022 9:23 AM BIOLOGICAL PHOTOGRAPHER Onesimo Bruno MD LAB - BLOOD ORDERABL ES [facility] [address] [place] [address] * Albumin Random Urine Quantitative with Creat Ratio (03/18/2022 9:23 AM BIOLOGICAL PHOTOGRAPHER) Creatinine Urine mg/dL 133.0 mg/dL 03/18/2022 4:56 PM BIOLOGICAL PHOTOGRAPHER [facility] Comment:The reference ranges have not been established in urine creatinine. The results should be integrated into the clinical context for interpretation. Albumin Urine mg/L <12.0 mg/L 2022 4:56 PM BIOLOGICAL PHOTOGRAPHER [facility] Comment:The reference ranges have not been established in urine albumin. The results should be integrated into the clinical context for interpretation. Albumin Urine mg/g Cr 03/18/2022 4:56 PM BIOLOGICAL PHOTOGRAPHER [facility] Comment: Unable to calculate, urine albumin and/or urine creatinine is outside detectable limits. Microalbuminuria is defined as an albumin:creatinine ratio of 17 to 299 for males and 25 to 299 for females. A ratio of albumin:creatinine of 300 or higher is indicative of overt proteinuria. Due to biologic variability, positive results should be confirmed by a second, first-morning random or 24-hour timed urine specimen. If there is discrepancy, a third specimen is recommended. When 2 out of 3 results are in the microalbuminuria range, this is evidence for incipient nephropathy and warrants increased efforts at glucose control, blood pressure control, and institution of therapy with an ckaeicafsdd-geuyzamdbb-fjrtpy (PAUL) inhibitor (if the patient can tolerate it). ?? Urine URINE SPECIMEN / Unknown Non-blood Collection / Unknown 03/18/2022 9:23 AM BIOLOGICAL PHOTOGRAPHER 03/18/2022 9:26 AM BIOLOGICAL PHOTOGRAPHER Onesimo Bruno MD LAB - URINE ORDERABL ES [facility] Core Lab [address] 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) Prediabetes Other abnormal glucose Bipolar affective disorder, remission status unspecified (H) documented in this encounter Additional Health Concerns Problem Noted Date Diagnosed Date HP GENERAL PROBLEM 11/13/2021 Assessment Noted Time PHQ-9 Depression Total Score: 7 03/18/19 23 8:29 AM BIOLOGICAL PHOTOGRAPHER documented as of this encounter Care Teams Vice President Of Compliance Relationship Specialty Start Date End Date Onesimo Bruno MD PCP - General 08/11/06 Bhavna Mac, GenesisD [address] [place] [address] Pharmacist Pharmacist 07/11/18 Isaac Bro, RN Lead Knot Borer Primary Care - CC 09/01/18 Onesimo Bruno MD [address] [place] [address] Assigned PCP 07/30/20 Nataliia Gomez MD [address] [facility], [address] [place], [place] [id number] Assigned Heart and Vascular Provider 08/29/20 10/08/22 [place] [address] [place] [address] [address] [place], [place] [id number] Assigned Allergy Provider 08/29/2004/16 Rafita Ayers MD [address] [place] [address] Assigned Pulmonology Provider 10/12/20 Flo Henry MD [address] [address] Assigned Behavioral Health Provider 09/21/20 Jana Vick, W Community Health Worker Primary Care - CC 06/08/21 Tor Joseph DPM [facility] [address] [place], [place] [id number] Assigned Musculoskeletal Provider 07/05/21 03/19/22 Lorri Larsen MD [address] [place] [address] Otolaryngology 07/21/21 Lorri Larsen MD [address] [place] [address] Assigned Surgical Provider 10/10/21 Rafita Ayers MD [address] [place] [address] Critical Care 11/30/21 Kaelyn New AuD [address] [place] [address] Layout Mechanic Audiology 12/09/21 documented as of this encounter
--- OUTSIDE RECORDS SUMMARY | 2023-02-27 14:31 | XMS_ITS | Encounter Summary ---
Author Name Unknown Organization [place] Address [address] [place] [address] Care Team Providers Care Aboriginal Home School Liaison Officer Name Role Phone Onesimo Bruno MD Primary Care Provider [phone] Bhavna Mac PharmD Unavailable [phone] Isaac Bro RN Unavailable Unavailable Onesimo Bruno MD Unavailable [phone] Nataliia Gomez MD Unavailable Luly Grant MD Unavailable [phone] Rafita Ayers MD Unavailable [phone] Flo Henry MD Unavailable [phone] Jana Vick CHW Unavailable Unavailabl Tor Saldana DPM Unavailable [phone] Lorri Larsen MD Unavailable [phone] Lorri Larsen MD Unavailable [phone] Rafita Ayers MD Unavailable [phone] Kaelyn New Unavailable [phone] Marino Hayes MD Unavailable [phone] Marino Hayes MD Unavailable [phone] Encounter Details Date Type Department Care Team (Late st Contact Info) Description 01/26/2022 [facility] Specialty [address] [address] Mary James RN Social History Tobacco Use Types Packs/Day Years [...] suspected to have Coronavirus/COVID-19? 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 CHAIR SPRINGER documented as of this encounter Plan of Treatment Upcoming Encounters Date Type Department Care Team (Late st Contact Info) Description 04/04/2023 1:00 PM CHAIR SPRINGER Virtual Visit [facility] Surgery Clinic and Bariatrics Care [address] [place] [phone] Keke Brooks, RD [address] [facility] [address] [place] [address] documented as of this encounter [...] will look into working with a personal protection specialist to assist me with resistance training. 5. I will report progress towards this goal at outreach telephone calls from the [facility] team Discussed 12/28/22 documented as of this encounter Visit Diagnoses Not on filedocumented in this encounter Additional Health Concerns Problem Noted Date Diagnosed Date HP GENERAL PROBLEM 11/13/2021 Assessment Noted Time PHQ-9 Depression Total Score: 13 024 7:09 AM CHAIR SPRINGER documented as of this encounter Care Teams Aboriginal Home [employer] Liaison Officer Relationship Specialty Start Date End Date Onesimo Bruno MD PCP - General 08/11/06 Bhavna Mac, GenesisD [address] [place] [address] Pharmacist Pharmacist 07/11/18 Isaac Bro, RN Lead Roving Court Reporter Primary Care - CC 09/01/18 Onesimo Bruno MD [address] [place] [address] Assigned PCP 07/30/20 Nataliia Gomez MD [address] [facility], [address] [place] [address] Assigned Heart and Vascular Provider 08/29/20 10/08/22 Luly Grant MD [address] [facility] [address] [place] [address] Assigned Allergy Provider 08/29/20 04/16/22 Rafita Ayers MD [address] [place] [address] Assigned Pulmonology Provider 10/12/20 Flo Henry MD [address] [facility] [address] [place] [address] Assigned Behavioral Health Provider 09/21/20 Jana Vick, W Community Health Worker Primary Care - CC 06/08/21 Tor Joseph DPM [facility] [address] [place] [address] Assigned Musculoskeletal Provider 07/05/21 03/19/22 Lorri Larsen MD [address] [place] [address] Otolaryngology 07/21/21 Lorri Larsen MD [address] [place] [address] Assigned Surgical Provider 10/10/21 aRfita Ayers MD [address] [place] [address] Critical Care 11/30/21 Kaelyn New, [place] [address] [place] [address] Chemical Equipment Controller Audiology 12/09/21 Marino Hayes MD [address] [place] [address] Cardiovascular Disease 09/28/22 Marino Hayes MD [address] [place] [address] Assigned Heart and Vascular Provider 10/09/22 documented as of this encounter
--- OUTSIDE RECORDS SUMMARY | 2023-02-27 14:31 | XMS_ITS | Encounter Summary ---
Author Name Unknown Organization [facility] Address [address] [place] [address] Care Team Providers Care Rn Production Name Role Phone Onesimo Bruno MD Primary Care Provider [phone] Bhavna Mac PharmD Unavailable [phone] Isaac Bro RN Unavailable Unavailable Onesimo Bruno MD Unavailable [phone] Nataliia Gomez MD Unavailable Luly Grant MD Unavailable [phone] Rafita Ayers MD Unavailable [phone] Flo Henry MD Unavailable [phone] Jana Vick CHW Unavailable Unavailabl Tor Saldana DPM Unavailable [phone] Lorri Larsen MD Unavailable [phone] Lorri Larsen MD Unavailable [phone] Rafita Ayers MD Unavailable [phone] Kaelyn New Unavailable [phone] Reason for Visit * Reason Comments Follow Up * Consultation (Routine) - Closed Specialty Diagnoses / Procedures Referred By Contact Referred To Contact Cardiovascular Disease Diagnoses Hypercholesterolemia Essential hypertension, benign Coronary atherosclerosis Nataliia Gomez MD [address] [facility], [address] [place] [address] Referral ID Status Reason Start Date Expiration Date Visits Re quested Visits Authorized [id number] Closed 01/22/2022 01/22/2023 1 1 Encounter Details Date Type Department Care Team (Late st Contact Info) Description 03/16/2022 12:50 PM SHANK BREAKER Office Visit [facility] [address] [facility] [address] [place] [phone] Nataliia Gomez MD [address] [facility], [address] [place] [address] Coronary artery disease involving [place] coronary artery of [place] heart, unspecified whether angina present (Primary Dx); Hypercholesterolemia; Essential hypertension, benign Social History Tobacco Use Types Packs/Day Years [...] Coronavirus/COVID-19? No / Unsure 03/16/2022 12:28 PM SHANK BREAKER documented as of this encounter Last Filed Vital Signs Vital Sign Reading Time Taken Comments Blood Pressure 128/70 03/16/2022 12:39 PM SHANK BREAKER Pulse 85 03/16/2022 12:39 PM SHANK BREAKER Temperature - - Respiratory Rate 16 03/16/2022 12:3 9 PM SHANK BREAKER Oxygen Saturation 95% 03/16/2022 12: 39 PM SHANK BREAKER Inhaled Oxygen Concentration - - Weight 140.4 kg (309 lb 9.6 oz) 03/16/2022 12:39 PM SHANK BREAKER with shoes on Height 182.9 cm (6') 03/16/2022 12:39 PM SHANK BREAKER Body Mass Index 41.99 03/16/2022 12:39 PM SHANK BREAKER documented in this encounter Patient Instructions * Patient Instructions* Nataliia Gomez MD - 03/16/2022 12:50 PM SHANK BREAKER Continue current medications Follow up in 1 year K BREAKER documented in this encounter Progress Notes * Nataliia Gomez MD - 03/16/2022 12:50 PM CST Images from the original note were not included. Thank you, Dr. Onesimo Bruno, for asking the [facility] team to see Mr. Roger Luong to follow-up on coronary artery disease, essential hypertension, hypercholesterolemia. Assessment/Recommendations Assessment: 1. Coronary artery disease, status post stenting of the proximal left anterior descending in 2002 for unstable angina with most recent stress test being a stress cardiac MRI in November 2020 demonstrating no evidence of ischemia or infarction. He is presently going through pulmonary rehab following pulmonary emboli related to COVID. He is noting improvement in exercise tolerance and less symptoms of exertional dyspnea. Specifically denies any exertional chest discomfort. At this point would continue with risk factor modification and observation. 2. Hypercholesterolemia, well controlled with most recent lipid profile in November 2021 demonstrating an LDL of 57. Continue current treatment. 3. Essential hypertension, well controlled 4. Morbid obesity. Patient will be seen in a weight loss clinic program which has been successful before. He is questioning whether he may be advised to start medication that could have cardiac implications. I told him to let me know once he has had the visit if there is any medication they want tostart and I can look into it further. Plan: 1. Continue current medications 2. Follow-up in 1 year or sooner if new symptoms History of Present Illness Mr. Roger Luong is a 71 year old male with history of coronary artery disease, status post stenting of the proximal left anterior descending in 2002 for unstable angina, essential hypertension, hypercholesterolemia, morbid obesity who presents to the office today for routine visit. Since I last saw him, we did pursue a cardiac stress MRI which demonstrated no evidence of ischemia. He has continued to do fairly well although developed COVID infection and subsequently had bilateral pulmonaryemboli and has been plagued by exertional dyspnea. He was subsequently enrolled in pulmonary rehab where he has been progressing slowly. Denies any exertional chest discomfort. Does feel his exertional dyspnea is improving. Denies any orthopnea, PND or lower extremity edema. ECG (personally reviewed): No ECG today Cardiac Imaging Studies (personally reviewed): No recent cardiac imaging Physical Examination Review of Systems BP 128/70 (BP Location: Left arm, Patient Position: Sitting, Cuff Size: Adult Large) Pulse 85 Resp 16 Ht 1.829 m (6') Wt 140.4 kg (309 lb 9.6 oz) SpO2 95% BMI 41.99 kg/m?? Body mass index is 41.99 kg/m??. Wt Readings from Last 3 Encounters: 03/16/22 140.4 kg (309 lb 9.6 oz) 11/30/21 138.8 kg (306 lb) 11/16/21 139.2 kg (306 lb 12.8 oz) General Appearance: Awake, Alert, No acute distress. HEENT: No scleral icterus; the mucous membranes were pink and moist. Neck: No cervical bruits or jugular venous distention Chest: The spine was straight. The chest was symmetric. Lungs: Respirations unlabored; the lungs are clear to auscultation. No wheezing Cardiovascular: Regular rate and rhythm. S1, S2 normal. No murmur or gallop Abdomen: No organomegaly, masses, bruits, or tenderness. Bowels sounds are present Extremities: No peripheral edema bilaterally. Skin: No xanthelasma. Warm, Dry. Musculoskeletal: No tenderness. Neurologic: Mood and affect are appropriate. Enc Vitals BP: 128/70 Pulse: 85 Resp: 16 SpO2: 95 % Weight: 140.4 kg (309 lb 9.6 oz) (with shoes on) Height: 182.9 cm (6') Medical History Surgical History Family History Social History Past Medical History: Diagnosis Date ??? Allergic rhinitis ??? Asthma ??? Benign pigmented nevus ??? Bilateral pulmonary embolism (H) 02/17/2016 ??? Bipolar disorder (H) ??? Chronic kidney disease ??? Coronary atherosclerosis Created by [facility] Annotation: Mar 17 2007 12:01PM - Onesimo [...] Skin lesion ??? 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 Thrombophlebitis leg ??? Wheezing Past Surgical History: Procedure Laterality Date ??? CORONARY STENT PLACEMENT x2 ??? EYE SURGERY Right lens extraction, and put lens in ( not for cataract) ??? INGUINAL HERNIA REPAIR Bilateral laparoscopic ??? IR MISCELLANEOUS PROCEDURE 04/18/2007 ??? LASIK Left ??? [place] CYSTOURETHROSCOPY,BIOPSY N/A 08/08/2018 Procedure: CYSTOSCOPY, BLADDER BIOPSY; Surgeon: Isaac Copeland MD; Location: [facility] OR; Service: Urology ??? TOE SURGERY Bilateral great- metal in right Family History Problem Relation Age of Onset ??? Heart Disease Mother ??? Cerebrovascular Disease Mother ??? Heart Disease Father ??? Thyroid Cancer No family hx of Social History Socioeconomic History ??? Marital status: Spouse name: Not on file ??? Number of children: Not on file ??? Years of education: Not on file ??? Highest education level: Not on file Occupational History ??? Not on file Tobacco Use ??? Smoking status: Never ??? Smokeless tobacco: Never Substance and Sexual Activity ??? Alcohol use: [...] on file Housing Stability: Not on file Medications Allergies Current Outpatient Medications Medication Sig Dispense Refill ??? albuterol (PROAIR HFA/PROVENTIL HFA/VENTOLIN HFA) 108 (90 Base) MCG/ACT inhaler [ALBUTEROL (VENTOLIN HFA) 90 MCG/ACTUATION INHALER] 2 puffs every 6 hours as needed. Strength: 108 (90 Base) MCG/ACT 18 g 2 ??? armodafinil (NUVIGIL) 250 mg tablet [ARMODAFINIL (NUVIGIL) 250 MG TABLET] Take 250 mg by mouth daily. ??? ASPIRIN NOT PRESCRIBED (INTENTIONAL) Please choose reason not prescribed from choices below. ??? buPROPion (WELLBUTRIN SR) 100 MG 12 [...] EACH NOSTRIL DAILY 48 g 3 ??? Gfdtzjgxszh-Bjsywltud-Qqadfn (TRELEGY ELLIPTA) 100-62.5-25 MCG/ACT oral inhaler Inhale 1 puff into the lungs daily 60 each 11 ??? furosemide (LASIX) 20 MG tablet TAKE 1/2 TABLET(10 MG) BY MOUTH DAILY Strength: 20 mg 45 tablet0 ??? ipratropium - albuterol 0.5 mg/2.5 mg/3 [...] FOR CHEST PAIN. 25 tablet 5 ??? [place]-3 Fatty Acids (FISH OIL OMEGA-3 PO) Take [...] DAILY AFTER SUPPER 90 capsule 3 ??? venlafaxine (EFFEXOR XR) 150 MG 24 hr capsule Take 2 tablets (300 mg) by mouth daily Take in additional to 37.5 mg tablet (Patient taking differently: No sig reported) 60 capsule 3 ??? venlafaxine (EFFEXOR) 37.5 MG tablet Take 37.5 mg by mouth daily Take in addition to 150 mg dose for total dose 187.5 mg daily ??? XARELTO ANTICOAGULANT 20 MG TABS tablet TAKE 1 TABLET BY MOUTH DAILY 90 tablet 3 Allergies Allergen Reactions ??? Oxycodone Itching and Rash Lab Results Chemistry/lipid CBC Cardiac Enzymes/BNP/TSH/INR Recent Labs Lab Test 11/30/21 1309 07/16/21 1549 TRIG 161* -- LDL 57 -- BUN -- 12 NA -- 141 CO2 -- 27 Recent Labs Lab Test 11/30/21 1309 WBC 5.2 HGB 14.1 HCT 42.9 MCV 94 PLT 183 Recent Labs Lab Test 07/16/21 1549 01/28/19 1813 08/29/17 2209 BNP -- 25 -- TSH 1.14 -- -- INR -- -- 1.26* A total of 45 minutes was spent reviewing patient's medical records, obtaining history and performing examination, as well as discussing diagnoses/ recommendations with patient and answering all questions. K BREAKER documented in this encounter Plan of Treatment Upcoming Encounters Date Type Department Care Team (Late st Contact Info) Description 04/04/2023 1:00 PM SHANK BREAKER Virtual Visit [facility] and B[facility] Care [address] [place] [address] Keke Brooks, RD [address] [facility] [address] [place], [place] [address] documented as of this encounter Goals Goal [...] will look into working with a personal finance instructor to assist me with resistance training. 5. I will report progress towards this goal at outreach telephone calls from the [facility] team Discussed 12/28/22 documented as of this encounter Visit Diagnoses Diagnosis Coronary artery disease involving [place] coronary artery of [place] heart, unspecified whether angina present- Primary Hypercholesterolemia Pure hypercholesterolemia Essential hypertension, benign documented in this encounter Additional Health Concerns Problem Noted Date Diagnosed Date HP GENERAL PROBLEM 11/13/2021 Assessment Noted Time PHQ-9 Depression Total Score: 13 024 7:09 AM SHANK BREAKER documented as of this encounter Care Teams Rn Production Relationship Specialty Start Date End Date Onesimo Bruno MD PCP - General 08/11/06 Bhavna Mac, GenesisD [address] [place] [address] Pharmacist Pharmacist 07/11/18 Isaac Bro, RN Lead Director Of Public Safety Primary Care - CC 09/01/18 Onesimo Bruno MD [address] [place] [address] Assigned PCP 07/30/20 Nataliia Gomez MD [address] [facility], [address] [place] [address] Assigned Heart and Vascular Provider 08/29/20 10/08/22 Luly Grant MD [address] [facility] [address] [place], [place] [id number] Assigned Allergy Provider 08/29/2004/16 Rafita Ayers MD [address] [place] [address] Assigned Pulmonology Provider 10/12/20 Flo Henry MD [address] [facility] [address] [place] [address] Assigned Behavioral Health Provider 09/21/20 Jana Vick, W Community Health Worker Primary Care - CC 06/08/21 Tor Joseph DPM [address] [facility] [address] [place] [address] Assigned Musculoskeletal Provider 07/05/21 03/19/22 Lorri Larsen MD [address] [place] [address] Otolaryngology 07/21/21 Lorri Larsen MD [address] [place] [address] Assigned Surgical Provider 10/10/21 Rafita Ayers MD [address] [place] [address] Critical Care 11/30/21 Kaelyn New, Shena [address] [place] [address] Landscape Supervisor Audiology 12/09/21 documented as of this encounter
--- OUTSIDE RECORDS SUMMARY | 2023-02-27 14:31 | XMS_ITS | Encounter Summary ---
Author Name Unknown Organization [facility] Address [address] [place] [address] Care Team Providers Care Pharmacist Hospital Name Role Phone Onesimo Bruno MD Primary Care Provider [phone] Bhavna Mac PharmD Unavailable [phone] Isaac Bro RN Unavailable Unavailable Onesimo Bruno MD Unavailable [phone] Nataliia Gomez MD Unavailable Luly Grant MD Unavailable [phone] Rafita Ayers MD Unavailable [phone] Flo Henry MD Unavailable [phone] Jana Vick CHW Unavailable UnavailTor Brown DPM Unavailable [phone] Lorri Larsen MD Unavailable [phone] Lorri Larsen MD Unavailable [phone] Rafita Ayers MD Unavailable [phone] Kaelyn New AuD Unavailable [phone] Encounter Details Date Type Department Care Team (Latest Contact Info) Description 03/02/2022 Travel Social History Tobacco Use Types Packs/Day [...] Coronavirus/COVID-19? No / Unsure 03/02/2022 12:59 AM MERCHANDISING STOCK ASSOCIATE documented as of this encounter Plan of Treatment Upcoming Encounters Date Type Department Care Team (Late st Contact Info) Description 04/04/2023 1:00 PM MERCHANDISING STOCK ASSOCIATE Virtual Visit [facility] Bariatrics Care [address] [place] [address] Keke Brooks, RD [address] [facility] [address] [place] [address] documented as of this encounter [...] look into working with a personal care home administrator to assist me with resistance training. 5. I will report progress towards this goal at outreach telephone calls from the [facility] team Discussed 12/28/22 documented as of this encounter Visit Diagnoses Not on filedocumented in this encounter Additional Health Concerns Problem Noted Date Diagnosed Date HP GENERAL PROBLEM 11/13/2021 Assessment Noted Time PHQ-9 Depression Total Score: 13 024 7:09 AM MERCHANDISING STOCK ASSOCIATE documented as of this encounter Care Teams Pharmacist Hospital Relationship Specialty Start Date End Date Onesimo Bruno MD PCP - General 08/11/06 Bhavna Mac, GenesisD [address] [place] [address] Pharmacist Pharmacist 07/11/18 Isaac Bro, RN Lead Heavy Equipment Operator Apprentice Primary Care - CC 09/01/18 Onesimo Bruno MD [address] [place] [address] Assigned PCP 07/30/20 Nataliia Gomez MD [address] [facility] [place] [address] Assigned Heart and Vascular Provider 08/29/20 10/08/22 Luly Grant MD [address] [facility] [address] [place], [place] [id number] Assigned Allergy Provider 08/29/2004/16 Rafita Ayers MD [address] [place] [address] Assigned Pulmonology Provider 10/12/20 Flo Henry MD [address] [facility] [address] [place] [address] Assigned Behavioral Health Provider 09/21/20 Jana Vick, W Community Health Worker Primary Care - CC 06/08/21 Tor Joseph DPM [address] [facility] [address] [place] [address] Assigned Musculoskeletal Provider 07/05/21 03/19/22 Lorri Larsen MD [address] [place] [address] Otolaryngology 07/21/21 Lorri Larsen MD [address] [place] [address] Assigned Surgical Provider 10/10/21 Rafita Ayers MD [address] [place] [address] Critical Care 11/30/21 Kaelyn New AuD [address] [place] [address] Concierge Audiology 12/09/21 documented as of this encounter
--- OUTSIDE RECORDS SUMMARY | 2023-02-27 14:31 | XMS_ITS | Encounter Summary ---
Author Name Unknown Organization [facility] Address [address] [place] [address] Care Team Providers Care Diesel Engine Specialist Name Role Phone Onesimo Bruno MD Primary Care Provider [phone] Bhavna Mac PharmD Unavailable Isaac Bro RN Unavailable Unavailable Onesimo Bruno MD Unavailable [phone] Nataliia Gomez MD Unavailable Luly Grant MD Unavailable [phone] Rafita Ayers MD Unavailable [phone] Flo Henry MD Unavailable [phone] Jana Vick CHW Unavailable Unavailabl e Lorri Larsen MD Unavailable [phone] Lorri Larsen MD Unavailable [phone] Rafita Ayers MD Unavailable [phone] Kaelyn New Unavailable [phone] Reason for Visit * Audiology (Routine: Next available opening) - Closed Specialty Diagnoses / Procedures Referred By Jason t Referred To Contact Audiology Diagnoses Hearing loss, unspecified hearing loss type, unspecified laterality Onesimo Bruno MD [address] [place] [address] Referral ID Status Reason Start Date Expiration Date V isits Requested Visits Authorized [id number] Closed Assess and Evaluate 11/30/2021 11/30/2022 1 1 Encounter Details Date Type Department Care Team (Late st Contact Info) Description 04/05/2022 1:30 PM VP INFORMATION TECHNOLOGY Office Visit [facility] [place] [address] [place] [address] Kaelyn New, AuD [address] [place], [place] [id number] Sensorineural hearing loss, bilateral (Primary Dx); Hearing loss, unspecified hearing loss type, unspecified laterality; Tinnitus of both ears Social History Tobacco Use Types Packs/Day Years [...] Coronavirus/COVID-19? No / Unsure 04/05/2022 1:34 PM VP INFORMATION TECHNOLOGY documented as of this encounter Progress Notes * Kaelyn New, Shena - 04/05/2022 1:30 PM CST AUDIOLOGY REPORT SUBJECTIVE: Roger Luong is a 71 year old male who was seen in the Audiology Clinic at the [facility] for audiologic evaluation, referred by Onesimo Bruno M.D. The patient has been seen previously in this clinic on 07-19-14 for assessment and results indicated mild, high frequency sensorineural hearing loss, bilaterally. The patient reports bilateral tinnitus, which is not pulsatile. He denied changes to hearing, but his spouse reportedly notes concerns when trying to communicatewith the patient. He denied true vertigo, otalgia, otorrhea, recent illness, or history of significant noise exposure. He has history of brain injury, cardiac, pulmonary, and psychology issues. OBJECTIVE: Abuse Screening: Do you feel unsafe at home or work/school? No Do you feel threatened by someone? No Does anyone try to keep you from having contact with others, or doing things outside of your home? No Physical signs of abuse present? No Fall Risk Screen: 1. Have you fallen two or more times in the past year? No 2. Have you fallen and had an injury in the past year? No Timed Up and Go Score (in seconds): not tested Is patient a fall risk? No Referral initiated: No Fall Risk Assessment Completed by Audiology Otoscopic exam indicates nonoccluding cerumen, bilaterally. Pure Tone Thresholds assessed using conventional audiometry with good reliability from 250-8000 Hz bilaterally using insert earphones and circumaural headphones. RIGHT: Normal hearing sensitivity for 250-3000 Hz and for 6000 Hz; mild sensorineural hearing loss at 4000 Hz and moderate, likely sensorineural hearing loss for 8000 Hz. LEFT: Normal hearing sensitivity for 250-6000 Hz; moderate, likely sensorineural hearing loss for 8000 Hz. Tympanogram: RIGHT: normal eardrum mobility LEFT: Unable to seal; hair at ear canal opening Reflexes were unable to be assessed in either ear due to large amounts of hair at canal openings, which interfered with hermetic seals. Speech Radar Air Traffic Controller Threshold: RIGHT: 5 dB HL LEFT: 10 dB HL Word Recognition Score: RIGHT: 100% at 50 dB HL using NU-6 recorded word list. LEFT: 100% at 50 dB HL using NU-6 recorded word list. ASSESSMENT: ICD-10-CM 1. Sensorineural hearing loss, bilateral H90.3 2. Hearing loss, unspecified hearing loss type, unspecified laterality H91.90 Adult Audiology Personnel Worker Referral 3. Tinnitus of both ears H93.13 Compared to patient's previous audiogram dated 07-19-14, hearing thresholds have shifted 10 dB at 4000 Hz and 20-25 dB at 8000 Hz. Thresholds are otherwise stable per 07-19-14 audiogram. Today???s results were discussed with the patient in detail. PLAN: Patient was counseled regarding hearing loss and impact on communication. Hearing sensitivityshould be retested annually to monitor, or per medical management/patient concern. Wear hearing protection consistently in noise to preserve residual hearing sensitivity and to minimize the effects of tinnitus. Mr. Luong is not yet an ideal amplification candidate for either ear. Appropriate communication strategies were discussed at length, as were reasonable expectations regarding hearing at a distance, in noisy environments, or when attention is diverted elsewhere. Mr. Luong expressed verbal understanding of this information and plan. Please call this clinic with questions regarding these results or recommendations. Eugenio Davis, [facility] [place] Visual Basic Programmer [id number] INFORMATION TECHNOLOGY documented in this encounter Plan of Treatment Upcoming Encounters Date Type Department Care Team (Late st Contact Info) Description 04/04/2023 1:00 PM VP INFORMATION TECHNOLOGY Virtual Visit [facility] and Bariatrics Care [address] [place] [address] Keke Brooks, RD [address] [facility] 84 [place] [address] documented as of this encounter [...] will look into working with a personal carer to assist me with resistance training. 5. I will report progress towards this goal at outreach telephone calls from the [facility] team Discussed 12/28/22 documented as of this encounter Procedures Procedure Name Priority Date/Time Associated Diagnosis Comments AL TYMPANOMETRY Routine 04/06/2022 12:31 PM VP INFORMATION TECHNOLOGY Sensorineural hearing loss, bilateral Tinnitus of both ears AL COMPREHENSIVE HEARING TEST Routine 04/06/2022 12:31 PM VP INFORMATION TECHNOLOGY Sensorineural hearing loss, bilateral Tinnitus of both ears AUDIOGRAM/TYMPANOGRAM - INTERFACE 04/05/2022 1:37 PM VP INFORMATION TECHNOLOGY documented in this encounter Results * AUDIOGRAM/TYMPANOGRAM - INTERFACE (04/05/2022 1:37 PM VP INFORMATION TECHNOLOGY) 04/05/2022 1:37 PM VP INFORMATION TECHNOLOGY Provider Unknown PROCEDURES documented in this encounter Visit Diagnoses Diagnosis Sensorineural hearing loss, bilateral- Primary Hearing loss, unspecified hearing loss type, unspecified laterality Tinnitus of both ears Unspecified tinnitus documented in this encounter Additional Health Concerns Problem Noted Date Diagnosed Date HP GENERAL PROBLEM 11/13/2021 Assessment Noted Time PHQ-9 Depression Total Score: 7 03/18/19 8:29 AM VP INFORMATION TECHNOLOGY documented as of this encounter Care Teams Diesel Engine Specialist Relationship Specialty Start Date End Date Onesimo Bruno MD PCP - General 08/11/06 Bhavna Mac, PharmD [address] [place] [address] Pharmacist Pharmacist 07/11/18 Isaac Bro, RN Lead Film Spooler Primary Care - CC 09/01/18 Onesimo Bruno MD [address] [place] [address] Assigned PCP 07/30/20 Nataliia Gomez MD [address] [facility], [address] [place] [address] Assigned Heart and Vascular Provider 08/29/20 10/08/22 Luly Grant MD [address] [facility] [address] [place] [address] Assigned Allergy Provider 08/29/20 04/16/22 Rafita Ayers MD [address] [place] [address] Assigned Pulmonology Provider 10/12/20 Flo Henry MD [address] [address] Assigned Behavioral Health Provider 09/21/20 Jana Vick, W Community Health Worker Primary Care - CC 06/08/21 Lorri Lrasen MD [address] [place] [address] Otolaryngology 07/21/21 Lorri Larsen MD [address] [place] [address] Assigned Surgical Provider 10/10/21 Rafita Ayers MD [address] [place] [address] Critical Care 11/30/21 Kaelyn New AuD [address] [place] [address] Set Up Operator Audiology 12/09/21 documented as of this encounter
--- OUTSIDE RECORDS SUMMARY | 2023-02-27 14:31 | XMS_ITS | Encounter Summary ---
Author Name Unknown Organization [place] Address [address] [place] [address] Care Team Providers Care Travel Registered Nurse Oncology Name Role Phone Onesimo Bruno MD Primary Care Provider [phone] Bhavna Mac PharmD Unavailable +[phone] Isaac Bro RN Unavailable Unavailable Onesimo Bruno MD Unavailable +[phone] Nataliia Gomez MD Unavailable Luly Grant MD Unavailable +[phone] Rafita Ayers MD Unavailable +[phone] Flo Henry MD Unavailable +[phone] Jana Vick CHW Unavailable Unavailabl Tor Saldana DPM Unavailable +[phone] Lorri Larsen MD Unavailable [phone] Lorri Larsen MD Unavailable +[phone] Rafita Ayers MD Unavailable +[phone] Kaelyn New Unavailable +[phone] Reason for Visit * Reason Onset Date Comments Refill Request 03/10/2022 Encounter Details Date Type Department Care Team (Late st Contact Info) Description 03/10/[address] [address] Evelia Otero, ANABELLA Refill Request Social History Tobacco Use Types [...] Coronavirus/COVID-19? No / Unsure 03/02/2022 12:59 AM AMMONIA DISTILLER documented as of this encounter Plan of Treatment Upcoming Encounters Date Type Department Care Team (Late st Contact Info) Description 04/04/2023 1:00 PM AMMONIA DISTILLER Virtual Visit [facility] [address] 200 [place] [address] Keke Brooks, RD 420 [facility] 84 [place] [address] documented as of this encounter [...] encounter Visit Diagnoses Diagnosis Moderate persistent asthma with acute exacerbation documented in this encounter Additional Health Concerns Problem Noted Date Diagnosed Date HP GENERAL PROBLEM 11/13/2021 Assessment Noted Time PHQ-9 Depression Total Score: 13 024 7:09 AM AMMONIA DISTILLER documented as of this encounter Care Teams Travel Registered Nurse Oncology Relationship Specialty Start Date End Date Onesimo Bruno MD PCP - General 08/11/06 Bhavna Mac, PharmD 870 [place] [address] Pharmacist Pharmacist 07/11/18 Isaac Bro, RN Lead Psychiatric Arnp Primary Care - CC 09/01/18 Onesimo Bruno MD 1390 [place] [address] Assigned PCP 07/30/20 Nataliia Gomez MD 1600 [facility], [address] [place] [address] Assigned Heart and Vascular Provider 08/29/20 10/08/22 Luly Grant MD 1655 [facility] [address] [place] [address] Assigned Allergy Provider 08/29/2004/16 Rafita Ayers MD 909 [place] [address] Assigned Pulmonology Provider 10/12/20 Flo Henry MD 1875 [facility] Stefano [address] [place] [address] Assigned Behavioral Health Provider 09/21/20 Jana Vick CHW Community Health Worker Primary Care - CC 06/08/21 Tor Joseph DPM 2945 [facility] [address] [place] [address] Assigned Musculoskeletal Provider 07/05/21 03/19/22 Lorri Larsen MD [address] [place] [address] Otolaryngology 07/21/21 Lorri Larsen MD [address] [place] [address] Assigned Surgical Provider 10/10/21 Rafita Ayers MD [address] [place] [address] Critical Care 11/30/21 Kaelyn New AuD [address] [place] [address] Quality Assurance Auditor Audiology 12/09/21 documented as of this encounter
--- OUTSIDE RECORDS SUMMARY | 2023-02-27 14:31 | XMS_ITS | Encounter Summary ---
Author Name Unknown Organization [place] Address [address] [place] [address] Care Team Providers Care Sewing Machine Operator Zipper Name Role Phone Onesimo Bruno MD Primary Care Provider [phone] Bhavna Mac PharmD Unavailable +[phone] Isaac Bro RN Unavailable Unavailable Onesimo Bruno MD Unavailable +[phone] Nataliia Gomez MD Unavailable Luly Grant MD Unavailable +[phone] Rafita Ayers MD Unavailable +[phone] Flo Henry MD Unavailable +[phone] Jana Vick CHW Unavailable Unavailabl Tor Saldana DPM Unavailable +[phone] Lorri Larsen MD Unavailable +[phone] Lorri Larsen MD Unavailable +[phone] Rafita Ayers MD Unavailable +[phone] Kaelyn New Unavailable +[phone] Marino Hayes MD Unavailable + [phone] Marino Hayes MD Unavailable +[phone] Encounter Details Date Type Department Care Team (Late st Contact Info) Description 03/05/2022 [facility] [address] [place] [phone] [facility] Social History Tobacco Use Types Packs/Day Years [...] Coronavirus/COVID-19? No / Unsure 03/02/2022 12:59 AM CHILD PROTECTIVE INVESTIGATOR documented as of this encounter Plan of Treatment Upcoming Encounters Date Type Department Care Team (Late st Contact Info) Description 04/04/2023 1:00 PM CHILD PROTECTIVE INVESTIGATOR Virtual Visit [facility] Care [address] 200 [place] [phone] Keke Brooks, RD 420 [facility] 84 [place], [place] [address] documented as of this encounter Goals Goal [...] look into working with a link trainer mechanic to assist me with resistance training. 5. I will report progress towards this goal at outreach telephone calls from the [facility] team Discussed 12/28/22 documented as of this encounter Visit Diagnoses Not on filedocumented in this encounter Additional Health Concerns Problem Noted Date Diagnosed Date HP GENERAL PROBLEM 11/13/2021 Assessment Noted Time PHQ-9 Depression Total Score: 13 024 7:09 AM CHILD PROTECTIVE INVESTIGATOR documented as of this encounter Care Teams Sewing Machine Operator Zipper Relationship Specialty Start Date End Date Onesimo Bruno MD PCP - General 08/11/06 Bhavna Mac, GenesisD 870 [place] [address] Pharmacist Pharmacist 07/11/18 Isaac Bro, RN Lead Hoop Punch And Coiler Operator Primary Care - CC 09/01/18 Onesimo Bruno MD 1390 [place] [address] Assigned PCP 07/30/20 Nataliia Gomez MD 1600 [facility], [address] [place], [place] [address] Assigned Heart and Vascular Provider 08/29/20 10/08/22 Luly Grant MD 1655 [facility] [address] [place], [place] [id number] Assigned Allergy Provider 08/29/20 04/16/22 Rafita Ayers MD 909 [place] [address] Assigned Pulmonology Provider 10/12/20 Flo Henry MD [address] [address] Assigned Behavioral Health Provider 09/21/20 Jana Vick, [facility] Community Health Worker Primary Care - CC 06/08/21 Tor Joseph DPM [facility]5 [facility] [address] [place] [address] Assigned Musculoskeletal Provider 07/05/21 03/19/22 Lorri Larsen MD [address] [place] [address] Otolaryngology 07/21/21 Lorri Larsen MD [address] [place] [address] Assigned Surgical Provider 10/10/21 Rafita Ayers MD [address] [place] [address] Critical Care 11/30/21 Kaelyn New AuD [address] [place] [address] Steward/Stewardess Economy Class Audiology 12/09/21 Marino Hayes MD [address] [place] [address] Cardiovascular Disease 09/28/22 Marino Hayes MD [address] [place] [address] Assigned Heart and Vascular Provider 10/09/22 documented as of this encounter
--- OUTSIDE RECORDS SUMMARY | 2023-02-27 14:31 | XMS_ITS | Encounter Summary ---
Author Name Unknown Organization [place] Address [address] [place] [address] Care Team Providers Care Air Saw Operator Name Role Phone Onesimo Bruno MD Primary Care Provider [phone] Bhavna Mac PharmD Unavailable [phone] Isaac Bro RN Unavailable Unavailable Onesimo Bruno MD Unavailable [phone] Nataliia Gomez MD Unavailable Luly Grant MD Unavailable +[phone] Rafita Ayers MD Unavailable +[phone] Flo Henry MD Unavailable +[phone] Jana Vick CHW Unavailable UnavailTor Brown DPM Unavailable +[phone] Lorri Larsen MD Unavailable +[phone] Lorri Larsen MD Unavailable +[phone] Rafita Ayers MD Unavailable +[phone] Kaelyn New AuD Unavailable [phone] Encounter Details Date Type Department Care Team (Latest Contact Info) Description 03/18/2022 Travel Social History Tobacco Use Types Packs/Day [...] Coronavirus/COVID-19? No / Unsure 03/18/2022 8:11 AM JET INSPECTOR documented as of this encounter Plan of Treatment Upcoming Encounters Date Type Department Care Team (Late st Contact Info) Description 04/04/2023 1:00 PM JET INSPECTOR Virtual Visit [facility] Surgery Clinic and Bariatrics Care [address] 200 [place] [address] Keke Brooks, RD 420 [facility] 84 [place] [address] documented as of this encounter [...] goal at outreach telephone calls from the [facility] team Discussed 12/28/22 documented as of this encounter Visit Diagnoses Not on filedocumented in this encounter Additional Health Concerns Problem Noted Date Diagnosed Date HP GENERAL PROBLEM 11/13/2021 Assessment Noted Time PHQ-9 Depression Total Score: 7 03/18/19 8:29 AM JET INSPECTOR documented as of this encounter Care Teams Air Saw Operator Relationship Specialty Start Date End Date Onesimo Bruno MD PCP - General 08/11/06 Bhavna Mac, GenesisD 870 [place] [address] Pharmacist Pharmacist 07/11/18 Isaac Bro, RN Lead Clinical Rehabilitation Aide Primary Care - CC 09/01/18 Onesimo Bruno MD 1390 [place] [address] Assigned PCP 07/30/20 Nataliia Gomez MD 1600 [facility], [address] [place] [address] Assigned Heart and Vascular Provider 08/29/20 10/08/22 Luly Grant MD 1655 [facility] [address] [place], [place] [address] Assigned Allergy Provider 08/29/2004/16 Rafita Ayers MD 909 [place] [address] Assigned Pulmonology Provider 10/12/20 Flo Henry MD 1875 [facility] Stefano [address] [place] [address] Assigned Behavioral Health Provider 09/21/20 Jana Vick, W Community Health Worker Primary Care - CC 06/08/21 Tor Joseph DPM 2945 [facility] [address] [place] [address] Assigned Musculoskeletal Provider 07/05/21 03/19/22 Lorri Larsen MD [address] [place] [address] Otolaryngology 07/21/21 Lorri Larsen MD [address] [place] [address] Assigned Surgical Provider 10/10/21 Rafita Ayers MD [address] [place] [address] 059195 Critical Care 11/30/21 Kaeyln New AuD [address] [place] [address] Private Duty Lpn Audiology 12/09/21 documented as of this encounter
[2023-02-27] MEDS: predniSONE 10 MG TABLET 50 MG PO (14:32)
[2023-02-27] MEDS: IPRAT-ALBUT 0.5-2.5 MG/3 ML NEB 1 NEB IH (14:32)
--- OUTSIDE RECORDS SUMMARY | 2023-02-27 14:32 | XMS_ITS | Encounter Summary ---
Author Name Unknown Organization [place] Address [address] [place] [address] Care Team Providers Care Fountain Helper Name Role Phone Onesimo Bruno MD Primary Care Provider [phone] Bhavna Mac PharmD Unavailable [phone] Isaac Bro RN Unavailable Unavailable Onesimo Bruno MD Unavailable [phone] Nataliia Gomez MD Unavailable Luly Grant MD Unavailable +[phone] Rafita Ayers MD Unavailable +[phone] Flo Henry MD Unavailable +[phone] Susan Robert CHW Unavailable Unavailable Jana Vick CHW Unavailable UnavailTor Brown DPM Unavailable +[phone] Lorri Larsen MD Unavailable +[phone] Lorri Larsen MD Unavailable +[phone] Rafita Ayers MD Unavailable +[phone] Kaelyn New Unavailable [phone] Marino Hayes MD Unavailable + [phone] Marino Hayes MD Unavailable + [phone] Reason for Visit * Reason Comments Medication Refill Encounter Details Date Type Department Care Team (Late st Contact Info) Description 05/26/2021 Refill [facility] Care Coordination [address] [place] [address] Onesimo Bruno MD [address] [place] [address] Medication Refill Social History Tobacco Use Types Packs/Day Years Used Date Smoking Tobacco: Never Smokeless Tobacco: Never Alcohol Use Standard Drinks/Week Comments No 0 (1 standard drink = 0.6 oz pur e alcohol) PHQ-2 Answer Date Recorded PHQ-2 Score 0 03/03/2021 Sex and Gender Information Value Date Recorded Sex Assigned at Male 05/09/2020 12:49 AM CDT Gender Identity Male 05/09/2020 12:49 AM CDT Sexual Orientation Garcia 09/17/2020 11 :45 PM CDT COVID-19 Exposure Response Date Recorded In the last 10 days, have yo u been in contact with someone who was confirmed or suspected to have Coronavirus/COVID-19? No / Unsure 05/29/2021 8:17 AM CDT documented as of this encounter Miscellaneous Notes * Telephone Encounter - Kleber Parra RN - 05/29/2021 8:54 AM CDT Routing refill request to provider for review/approval because: Labs not current: A1C Last Written Prescription Date: 02/18/21 Last Fill Quantity: 90, # refills: 0 Last office visit provider: 03/03/21 Requested Prescriptions Pending Prescriptions Disp Refills ??? metFORMIN (GLUCOPHAGE-XR) 500 MG 24 hr tablet [Pharmacy Med Name: METFORMIN ER 500MG 24HR TABS]90 tablet 0 Sig: TAKE 1 TABLET BY MOUTH DAILY Biguanide Agents Failed - 05/29/2021 8:54 AM Failed - Patient has documented A1c within the specified period of time. If HgbA1C is 8 or greater, it needs to be on file within the past 3 months. If less than 8, must beon file within the past 6 months. Recent Labs Lab Test 04/01/20 0954 A1C 5.7* Passed - Patient is age 10 or older Passed - Patient's CR is NOT>1.4 OR Patient's EGFR is NOT<45 within past 12 mos. Recent Labs Lab Test 03/03/21 1716 12/04/20 1238 09/21/19 1115 GFRESTIMATED 72 < > >60 GFRESTBLACK -- -- >60 < > = values in this interval not displayed. Recent Labs Lab Test 03/03/21 1716 CR 1.11 Passed - Patient does NOT have a diagnosis of CHF. Passed - Medication is active on med list Passed - Recent (6 mo) or future (30 days) visit within the authorizing provider's specialty Patient had office visit in the last 6 months or has a visit in the next 30 days with authorizing provider or within the authorizing provider's specialty. See Patient Info tab in inbasket, or Choose Columns in Meds & Orders section of the refill encounter. Kleber Parra RN 05/29/21 8:54 AM documented in this encounter Plan of Treatment Upcoming Encounters Date Type Department Care Team (Late st Contact Info) Description 04/04/2023 1:00 PM MARBLE CUTTER Virtual Visit [facility] Surgery Clinic and Bariatrics Care [address] [address] Keke Brooks, RD 420 [facility] 84 [place], [place] [address] documented as of this encounter Visit Diagnoses Diagnosis Metabolic syndrome Dysmetabolic Syndrome X Prediabetes Other abnormal glucose documented in this encounter Additional Health Concerns Assessment Noted Time PHQ-9 Depression Total Score: 5 03/03/19 22 5:15 PM MARBLE CUTTER documented as of this encounter Care Teams Fountain Helper Relationship Specialty Start Date End Date Onesimo Bruno MD PCP - General 08/11/06 Bhavna Mac PharmD 870 [place] [address] Pharmacist Pharmacist 07/11/18 Isaac Bro RN Lead Brake Operator Primary Care - CC 09/01/18 Onesimo Bruno MD 1390 [place] [address] Assigned PCP 07/30/20 Nataliia Gomez MD 1600 [facility], [address] [place] [address] Assigned Heart and Vascular Provider 08/29/20 10/08/22 Luly Grant MD [address] [facility] [address] [place] [address] Assigned Allergy Provider 08/29/20 04/16/22 Rafita Ayers MD [address] [place] [address]60[address] Assigned Pulmonology Provider 10/12/20 Flo Henry MD [facility] [address] [phone] Assigned Behavioral Health Provider 09/21/20 Susan Robert CHW Community Health Worker Primary Care - CC 04/23/2106/15/21 Jana Vick CHW Community Health Worker Primary Care - CC 06/08/21 Tor Joseph DPM [facility]5 [facility] [address] [place] [address] Assigned Musculoskeletal Provider 07/05/21 03/19/22 Lorri Larsen MD [address] [place] [address] Otolaryngology 07/21/21 Lorri Larsen MD [address] [place] [address] [place] [address] Assigned Surgical Provider 10/10/21 Rafita Ayers MD [address] [place] [address] Critical Care 11/30/21 Kaelyn New, [place] [address] [place] [address] Mannequin Decorator Audiology 12/09/21 Marino Hayes MD [address] [place] [address] Cardiovascular Disease 09/28/22 Marino Hayes MD [address] [place] [address] Assigned Heart and Vascular Provider 10/09/22 documented as of this encounter
--- OUTSIDE RECORDS SUMMARY | 2023-02-27 14:32 | XMS_ITS | Encounter Summary ---
Author Name Unknown Organization [place] Address [address] [place] [address] Care Team Providers Care Summer Camp Counselor Name Role Phone Onesimo Bruno MD Primary Care Provider [phone] Bhavna Mac PharmD Unavailable +[phone] Isaac Bro RN Unavailable Unavailable Onesimo Bruno MD Unavailable +[phone] Nataliia Gomez MD Unavailable Luly Grant MD Unavailable +[phone] Rafita Ayers MD Unavailable +[phone] Flo Henry MD Unavailable [phone] Jana Vick CHW Unavailable Unavailabl Tor Saldana DPM Unavailable +[phone] Lorri Larsen MD Unavailable +[phone] Lorri Larsen MD Unavailable +[phone] Rafita Ayers MD Unavailable +[phone] Kaelyn New Unavailable +[phone] Marino Hayes MD Unavailable +[phone] Marino Hayes MD Unavailable [phone] Encounter Details Date Type Department Care Team (Late st Contact Info) Description 12/01/2021 [facility] 1390 [place] [address] Brigette Guerrero MA Social History Tobacco Use Types Packs/Day [...] suspected to have Coronavirus/COVID-19? No / Unsure 11/30/2021 11:22 AM CDT documented as of this encounter Plan of Treatment Upcoming Encounters Date Type Department Care Team (Late st Contact Info) Description 04/04/2023 1:00 PM MORTGAGE LOAN PROCESSING CLERK Virtual Visit [facility] Surgery Clinic and Bariatrics Care [address] [address] Keke Brooks, RD 420 [facility] 84 [place], [place] [address] documented as of this encounter Goals Goal [...] I will look into working with a security trainer to assist me with resistance training. 5. I will report progress towards this goal at outreach telephone calls from the [facility] team Discussed 12/28/22 documented as of this encounter Visit Diagnoses Not on filedocumented in this encounter Additional Health Concerns Problem Noted Date Diagnosed Date HP GENERAL PROBLEM 11/13/2021 Assessment Noted Time PHQ-9 Depression Total Score: 13 024 7:09 AM MORTGAGE LOAN PROCESSING CLERK documented as of this encounter Care Teams Summer Camp Counselor Relationship Specialty Start Date End Date Onesimo Bruno MD PCP - General 08/11/06 Bhavna Mac, PharmD 870 [place] [address] Pharmacist Pharmacist 07/11/18 Isaac Bro, RN Lead Sheet Taker Primary Care - CC 09/01/18 Onesimo Bruno MD 1390 [place] [address] Assigned PCP 07/30/20 Nataliia Gomez MD 1600 [facility], [address] [place], [place] [address] Assigned Heart and Vascular Provider 08/29/20 10/08/22 Luly Grant MD 1655 [facility] [address] [place] [address] Assigned Allergy Provider 08/29/20 04/16/22 Rafita Ayers MD 909 [place] [address] Assigned Pulmonology Provider 10/12/20 Flo Henry MD [address] [address] Assigned Behavioral Health Provider 09/21/20 Jana Vick, [facility] Community Health Worker Primary Care - CC 06/08/21 Tor Joseph DPM [facility]5 [facility] [address] [place] [address] Assigned Musculoskeletal Provider 07/05/21 03/19/22 Lorri Larsen MD [address] [place] [address] Otolaryngology 07/21/21 Lorri Larsen MD [address] [place] [address] Assigned Surgical Provider 10/10/21 Rafita Ayers MD [address] [place] [address] Critical Care 11/30/21 Kaelyn New, [place] [address] [place] [address] Consulting Utility Forester Audiology 12/09/21 Marino Hayes MD [address] [place] [address] Cardiovascular Disease 09/28/22 Marino Hayes MD [address] [place] [address] Assigned Heart and Vascular Provider 10/09/22 documented as of this encounter
--- OUTSIDE RECORDS SUMMARY | 2023-02-27 14:32 | XMS_ITS | Encounter Summary ---
Author Name Unknown Organization [place] Address [address] [place] [address] Care Team Providers Care Quality Assurance Tester Name Role Phone Onesimo Bruno MD Primary Care Provider [phone] Bhavna Mac PharmD Unavailable +[phone] Isaac Bro RN Unavailable Unavailable Ilda Tapia CHW Unavailable +[phone] Onesimo Bruno MD Unavailable [phone] Nataliia Gomez MD Unavailable Luly Grant MD Unavailable +[phone] Rafita Ayers MD Unavailable [phone] Flo Henry MD Unavailable +[phone] Susan Robert CHW Unavailable Unavailable Jana Vick CHW Unavailable UnavailTor Brown DPM Unavailable [phone] Lorri Larsen MD Unavailable [phone] Lorri Larsen MD Unavailable +[phone] Rafita Ayers MD Unavailable +[phone] Kaelyn New Unavailable +[phone] Marino Hayes MD Unavailable + [phone] Marino Hayes MD Unavailable + [phone] Encounter Details Date Type Department Care Team (Late st Contact Info) Description 03/04/[address] [facility] 1390 [place] [address] Onesimo Bruno MD 1390 [place] [address] Social History Tobacco Use Types Packs/Day Years [...] Exposure Response Date Recorded In the last month, have you been in contact with someone who was confirmed or suspected to have Coronavirus / COVID-19? No / Unsure 03/03/2021 3:44 PM TRANSPORTATION ATTENDANT documented as of this encounter Plan of Treatment Upcoming Encounters Date Type Department Care Team (Late Contact Info) Description 04/04/2023 1:00 PM TRANSPORTATION ATTENDANT Virtual Visit [facility] Surgery Clinic and Bariatrics Care [address] [phone] Keke Brooks, RD 420 [facility] 84 [place] [address] documented as of this encounter Visit Diagnoses Not on filedocumented in this encounter Additional Health Concerns Assessment Noted Time PHQ-9 Depression Total Score: 5 03/03/19 22 5:15 PM TRANSPORTATION ATTENDANT documented as of this encounter Care Teams Quality Assurance Tester Relationship Specialty Start Date End Date Onesimo Bruno MD PCP - General 08/11/06 Bhavna Mac, GenesisD 0 [place] [address] Pharmacist Pharmacist 07/11/18 Isaac Bro, RN Lead Freight Associate Primary Care - CC 09/01/18 Ilda Tapia W Community Health Worker Primary Care - CC 09/01/1804/22 Onesimo Bruno MD 1390 [place] [address] Assigned PCP 07/30/20 Nataliia Gomez MD 1600 [facility] [address] [place] [address] Assigned Heart and Vascular Provider 08/29/20 10/08/22 [place] [address] [place] [address] [address] [place] [address] Assigned Allergy Provider 08/29/20 04/16/22 Rafita Ayers MD 909 [place] [address] Assigned Pulmonology Provider 10/12/20 Flo Henry MD [address] [id number] Assigned Behavioral Health Provider 09/21/20 Susan Robert CHW Community Health Worker Primary Care - CC 04/23/2106/15/21 Jana Vick CHW Community Health Worker Primary Care - CC 06/08/21 Tor Joseph DPM 2945 [facility] [address] [place] [address] Assigned Musculoskeletal Provider 07/05/21 03/19/22 Lorri Larsen MD [address] [place] [address] Otolaryngology 07/21/21 Lorri Larsen MD [address] [place] [address] Assigned Surgical Provider 10/10/21 Rafita Ayers MD [address] [place] [address] Critical Care 11/30/21 Kaelyn New AuD [address] [place] [address] Collections And Archives Director Audiology 12/09/21 Marino Hayes MD [address] [place] [address] Cardiovascular Disease 09/28/22 Marino Hayes MD [address] [place] [address] Assigned Heart and Vascular Provider 10/09/22 documented as of this encounter
--- OUTSIDE RECORDS SUMMARY | 2023-02-27 14:32 | XMS_ITS | Encounter Summary ---
Author Name Unknown Organization [place] Address [address] [facility] [place] [address] Care Team Providers Care Corner Brace Block Machine Operator Name Role Phone Onesimo Bruno MD Primary Care Provider [phone] Bhavna Mac PharmD Unavailable +[phone] Isaac Bro RN Unavailable Unavailable Onesimo Bruno MD Unavailable +[phone] Nataliia Gomez MD Unavailable Luly Grant MD Unavailable +[phone] Rafita Ayers MD Unavailable +[phone] Flo Henry MD Unavailable +[phone] Jana Vick CHW Unavailable Unavailabl Tor Saldana DPM Unavailable +[phone] Lorri Larsen MD Unavailable +[phone] Lorri Laresn MD Unavailable +[phone] Rafita Ayers MD Unavailable +[phone] Kaelyn New Unavailable +[phone] Encounter Details Date Type Department Care Team (Latest Contact Info) Description 12/16/2021 Medical Correspondence [facility] [address] [place] [address] Outside, Provider PULMONARY REHABILITATION ORDERS [facility] Social History Tobacco Use Types Packs/Day Years [...] Coronavirus/COVID-19? No / Unsure 03/18/2022 8:11 AM SCREW CUTTER documented as of this encounter Plan of Treatment Upcoming Encounters Date Type Department Care Team (Late st Contact Info) Description 04/04/2023 1:00 PM SCREW CUTTER Virtual Visit [facility] Surgery Clinic and Bariatrics Care [address] 200 [place] [address] Keke Brooks, RD 420 [facility] 84 [place], [place] [address] documented as of this encounter Goals Goal [...] I will look into working with a director personal to assist me with resistance training. 5. I will report progress towards this goal at outreach telephone calls from the [facility] team Discussed 12/28/22 documented as of this encounter Visit Diagnoses Not on filedocumented in this encounter Additional Health Concerns Problem Noted Date Diagnosed Date HP GENERAL PROBLEM 11/13/2021 Assessment Noted Time PHQ-9 Depression Total Score: 13 02/27/ 024 7:09 AM SCREW CUTTER documented as of this encounter Care Teams Corner Brace Block Machine Operator Relationship Specialty Start Date End Date Onesimo Bruno MD PCP - General 08/11/06 Bhavna Mac, GenesisD [address]70 [place] [address] Pharmacist Pharmacist 07/11/18 Isaac Bro, RN Lead Junior Art Director Primary Care - CC 09/01/18 Onesimo Bruno MD 1390 [place] [address] Assigned PCP 07/30/20 Nataliia Gomez MD 1600 [facility], [address] [place] [address] Assigned Heart and Vascular Provider 08/29/20 10/08/22 [place] [address] [place] [address] [address] [place] [address] Assigned Allergy Provider 08/29/2004/16 Rafita Ayers MD 909 [place] [address] Assigned Pulmonology Provider 10/12/20 Flo Henry MD 1875 [facility] 250 [place] [address] Assigned Behavioral Health Provider 09/21/20 Jana Vick, W Community Health Worker Primary Care - CC 06/08/21 Tor Joseph DPM 2945 [facility] [address] [place] [address] Assigned Musculoskeletal Provider 07/05/21 03/19/22 Lorri Larsen MD [address] [place] [address] Otolaryngology 07/21/21 Lorri Larsen MD [address] [place] [address] 788105 Assigned Surgical Provider 10/10/21 Rafita Ayers MD [address] [place] [address] Critical Care 11/30/21 Kaelyn New, Shena [facility]5 [place] [address] Ballet Master/[facility] Aud[facility] 12/09/21 documented as of this encounter
--- OUTSIDE RECORDS SUMMARY | 2023-02-27 14:32 | XMS_ITS | Encounter Summary ---
Author Name Unknown Organization [place] Address [address] [place] [address] Care Team Providers Care Western Tack Assembly Line Worker Name Role Phone Onesimo Bruno MD Primary Care Provider [phone] Bhavna Mac PharmD Unavailable +[phone] Isaac Bro RN Unavailable Unavailable Ilda Tapia CHW Unavailable +[phone] Onesimo Bruno MD Unavailable [phone] Nataliia Gomez MD Unavailable Luly Grant MD Unavailable +[phone] Rafita Ayers MD Unavailable +[phone] Flo Henry MD Unavailable +[phone] Susan Robert CHW Unavailable Unavailable Jana Vick CHW Unavailable UnavailTor Brown DPM Unavailable +[phone] Lorri Larsen MD Unavailable +[phone] Lorri Larsen MD Unavailable +[phone] Rafita Ayers MD Unavailable +[phone] Kaelyn New Unavailable +[phone] Marino Hayes MD Unavailable + [phone] Marino Hayes MD Unavailable + [phone] Encounter Details Date Type Department Care Team (Late st Contact Info) Description 10/14/2020 MyC Medical Advice M [address] 200 [place] [phone] [place] [address] [place] [address] 111 [place], [place] [id number] Social History Tobacco Use Types Packs/Day Years Used Date Smoking Tobacco: Never Smokeless Tobacco: Never Alcohol Use Standard Drinks/Week Comments No 0 (1 standard drink = 0.6 oz pur e alcohol) PHQ-2 Answer Date Recorded PHQ-2 Score 3 07/31/2020 Sex and Gender Information Value Date Recorded Sex Assigned at Male 05/09/2020 12:49 AM CDT Gender Identity Male 05/09/2020 12:49 AM CDT Sexual Orientation Garcia 09/17/2020 11 :45 PM CDT COVID-19 Exposure Response Date Recorded In the last month, have you been in contact with someone who was confirmed or suspected to have Coronavirus / COVID-19? No / Unsure 10/09/2020 12:47 PM CDT documented as of this encounter Plan of Treatment Upcoming Encounters Date Type Department Care Team (Late st Contact Info) Description 04/04/2023 1:00 PM SUPERVISOR LENS GENERATING Virtual Visit [facility] Surgery Clinic and Bariatrics Care [address] [phone] Keke Brooks, RD 420 [facility] 84 [place] [address] documented as of this encounter Visit Diagnoses Not on filedocumented in this encounter Additional Health Concerns Assessment Noted Time PHQ-9 Depression Total Score: 14 022 10:49 AM SUPERVISOR LENS GENERATING documented as of this encounter Care Teams Western Tack Assembly Line Worker Relationship Specialty Start Date End Date Onesimo Bruno MD PCP - General 08/11/06 Bhavna Mac, Elio 0 [place], [place] [phone] Pharmacist Pharmacist 07/11/18 Isaac Bro, RN Lead Cause Analyst Primary Care - CC 09/01/18 Ilda Tapia W Community Health Worker Primary Care - CC 09/01/1804/22 Onesimo Bruno MD 1390 [place] [address] Assigned PCP 07/30/20 Nataliia Gomez MD 1600 [facility] [address] [place] [address] Assigned Heart and Vascular Provider 08/29/20 10/08/22 [place] [address] [place] [address] [address] [place] [address] Assigned Allergy Provider 08/29/20 04/16/22 aRfita Ayers MD 909 [place] [address] Assigned Pulmonology Provider 10/12/20 Flo Henry MD [address] [phone] Assigned Behavioral Health Provider 09/21/20 Susan Robert CHW Community Health Worker Primary Care - CC 04/23/2106/15/21 Jana Vick CHW Community Health Worker Primary Care - CC 06/08/21 Tor Joseph DPM 2945 [facility] [address] [place] [address] Assigned Musculoskeletal Provider 07/05/21 03/19/22 Lorri Larsen MD [address] [place] [address] Otolaryngology 07/21/21 Lorri Larsen MD [address] [place] [address] Assigned Surgical Provider 10/10/21 Rafita Ayers MD [address] [place] [address] Critical Care 11/30/21 Kaelyn New AuD [address] [place] [address] Commissions Coordinator Audiology 12/09/21 Marino Hayes MD [address] [place] [address] Cardiovascular Disease 09/28/22 Marino Hayes MD [address] [place] [address] Assigned Heart and Vascular Provider 10/09/22 documented as of this encounter
--- OUTSIDE RECORDS SUMMARY | 2023-02-27 14:32 | XMS_ITS | Encounter Summary ---
Author Name Unknown Organization [place] Address [address] [place] [address] Care Team Providers Care Meter Reading Clerk Name Role Phone Onesimo Bruno MD Primary Care Provider [phone] Bhavna Mac PharmD Unavailable +[phone] Isaac Bro RN Unavailable Unavailable Onesimo Bruno MD Unavailable +[phone] Nataliia Gomez MD Unavailable Luly Grant MD Unavailable +[phone] Rafita Ayers MD Unavailable +[phone] Flo Henry MD Unavailable +[phone] Jana Vick CHW Unavailable Unavailabl Tor Saldana DPM Unavailable +[phone] Lorri Larsen MD Unavailable +[phone] Lorri Larsen MD Unavailable +[phone] Rafita Ayers MD Unavailable +[phone] Kaelyn New Unavailable +[phone] Marino Hayes MD Unavailable + [phone] Marino Hayes MD Unavailable + [phone] Reason for Visit * Reason Comments Medication Refill Encounter Details Date Type Department Care Team (Late st Contact Info) Description 01/22/2022 Refill [facility] Heart [address] [place] [address] Nataliia Gomez MD [address] [facility], [address] [place] [address] Medication Refill Social History Tobacco Use Types [...] Coronavirus/COVID-19? 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 LANDSCAPE ARCHITECT documented as of this encounter Plan of Treatment Upcoming Encounters Date Type Department Care Team (Late st Contact Info) Description 04/04/2023 1:00 PM LANDSCAPE ARCHITECT Virtual Visit [facility] Surgery Clinic and Bariatrics Care [address] [place] [address] Keke Brooks, RD 420 [facility] 84 [place], [place] [address] documented as of this encounter Goals Goal [...] I will look into working with a parent trainer to assist me with resistance training. [...] Depression Total Score: 13 024 7:09 AM LANDSCAPE ARCHITECT documented as of this encounter Care Teams Meter Reading Clerk Relationship Specialty Start Date End Date Onesimo Bruno MD PCP - General 08/11/06 Bhavna Mac, GenesisD 870 [place] [address] Pharmacist Pharmacist 07/11/18 Isaac Bro, RN Lead Ginner Primary Care - CC 09/01/18 Onesimo Bruno MD 1390 [place] [address] Assigned PCP 07/30/20 Nataliia Gomez MD 1600 [facility], [address] [place] [address] Assigned Heart and Vascular Provider 08/29/20 10/08/22 Luly Grant MD 1655 [facility] [address] [place] [address] Assigned Allergy Provider 08/29/20 04/16/22 Rafita Ayers MD 909 [place] [address] Assigned Pulmonology Provider 10/12/20 Flo Henry MD 1875 [facility] 250 [place] [address] Assigned Behavioral Health Provider 09/21/20 Jana Vick, W Community Health Worker Primary Care - CC 06/08/21 Tor Joseph DPM [facility]5 [facility] [address] [place] [address] Assigned Musculoskeletal Provider 07/05/21 03/19/22 Lorri Larsen MD [address] [place] [address] Otolaryngology 07/21/21 Lorri Larsen MD [address] [place] [address] Assigned Surgical Provider 10/10/21 Rafita Ayers MD [address] [place] [address] Critical Care 11/30/21 Kaelyn New, Shena [facility] [place] [address] Bit Bender Audiology 12/09/21 Marino Hayes MD [address] [place] [address] Cardiovascular Disease 09/28/22 Marino Hayes MD [address] [place] [address] Assigned Heart and Vascular Provider 10/09/22 documented as of this encounter
--- OUTSIDE RECORDS SUMMARY | 2023-02-27 14:32 | XMS_ITS | Encounter Summary ---
Author Name Unknown Organization [place] Address [address] [place] [address] Care Team Providers Care Coiled Tubing Operator Name Role Phone Onesimo Bruno MD Primary Care Provider [phone] Bhavna Mac PharmD Unavailable +[phone] Isaac Bro RN Unavailable Unavailable Ilda Tapia CHW Unavailable +[phone] Onesimo Bruno MD Unavailable [phone] Nataliia Gomez MD Unavailable Luly Grant MD Unavailable +[phone] Rafita Ayers MD Unavailable +[phone] Flo Henry MD Unavailable +[phone] Susan Robert CHW Unavailable Unavailable Jana Vick CHW Unavailable UnavailTor Brown DPM Unavailable +[phone] Lorri Larsen MD Unavailable +[phone] Lrori Larsen MD Unavailable +[phone] Rafita Ayers MD Unavailable +[phone] Kaelyn New Unavailable +[phone] Marino Hayes MD Unavailable + [phone] Marino Hayes MD Unavailable + [phone] Encounter Details Date Type Department Care Team (Late st Contact Info) Description 12/16/2020 MyC Medical Advice M [facility] Heart Care [place] 1875 [facility] [address] [place] [address] Nataliia Gomez MD [address] [facility], [address] [place] [address] Social History Tobacco Use Types Packs/Day Years Used Date Smoking Tobacco: Never Smokeless Tobacco: Never Alcohol Use Standard Drinks/Week Comments No 0 (1 standard drink = 0.6 oz pur e alcohol) PHQ-2 Answer Date Recorded PHQ-2 Score 1 11/04/2020 Sex and Gender Information Value Date Recorded Sex Assigned at Male 05/09/2020 12:49 AM CDT Gender Identity Male 05/09/2020 12:49 AM CDT Sexual Orientation Garcia 09/17/2020 11 :45 PM CDT COVID-19 Exposure Response Date Recorded In the last month, have you been in contact with someone who was confirmed or suspected to have Coronavirus / COVID-19? No / Unsure 12/04/2020 12:32 PM CDT documented as of this encounter Plan of Treatment Upcoming Encounters Date Type Department Care Team (Late st Contact Info) Description 04/04/2023 1:00 PM CYBER ANALYST Virtual Visit [facility] Surgery Clinic and Bariatrics Care [place] [address] [facility] [address] [place] [phone] Keke Brooks, RD 420 [facility] 84 [place] [address] documented as of this encounter Visit Diagnoses Not on filedocumented in this encounter Additional Health Concerns Assessment Noted Time PHQ-9 Depression Total Score: 7 11/05/19 21 4:49 PM CDT documented as of this encounter Care Teams Coiled Tubing Operator Relationship Specialty Start Date End Date Onesimo Bruno MD PCP - General 08/11/06 Bhavna Mac, GenesisD [address] [place] [address] Pharmacist Pharmacist 07/11/18 Isaac Bro, RN Lead Lozenge Dough Mixer Primary Care - CC 09/01/18 Ilda Tapia CHW Community Health Worker Primary Care - CC 09/01/1804/22 Onesimo Bruno MD 1390 [place] [address] Assigned PCP 07/30/20 Nataliia Gomez MD 1600 [facility], [address] [place] [address] Assigned Heart and Vascular Provider 08/29/20 10/08/22 [place] [address] [place] [address] [address] [place] [address] Assigned Allergy Provider 08/29/20 04/16/22 Rafita Ayers MD 909 [place] [address] Assigned Pulmonology Provider 10/12/20 Flo Henry MD [facility] [address] Assigned Behavioral Health Provider 09/21/20 Susan Robert CHW Community Health Worker Primary Care - CC 04/23/2106/15/21 Jana Vick CHW Community Health Worker Primary Care - CC 06/08/21 Tor Joseph DPM 2945 [facility] [address] [place] [address] Assigned Musculoskeletal Provider 07/05/21 03/19/22 Lorri Larsen MD [address] [place] [address] Otolaryngology 07/21/21 Lorri Larsen MD [address] [place] [address] Assigned Surgical Provider 10/10/21 Rafita Ayers MD [address] [place] [address] Critical Care 11/30/21 Kaelyn New AuD [address] [place] [address] Manager Fast Food Audiology 12/09/21 Marino Hayes MD [address] [place] [address] Cardiovascular Disease 09/28/22 Marino Hayes MD [address] [place] [address] Assigned Heart and Vascular Provider 10/09/22 documented as of this encounter
--- OUTSIDE RECORDS SUMMARY | 2023-02-27 14:32 | XMS_ITS | Encounter Summary ---
Author Name Unknown Organization [place] Address [address] [place] [address] Care Team Providers Care Front Office Administrator Name Role Phone Onesimo Bruno MD Primary Care Provider [phone] Bhavna Mac PharmD Unavailable +[phone] Isaac Bro RN Unavailable Unavailable Onesimo Bruno MD Unavailable +[phone] Nataliia Gomez MD Unavailable Luly Grant MD Unavailable +[phone] Rafita Ayers MD Unavailable +[phone] Flo Henry MD Unavailable +[phone] Jana Vick CHW Unavailable Unavailabl Tor Saldana DPM Unavailable +[phone] Lorri Larsen MD Unavailable +[phone] Lorri Larsen MD Unavailable +[phone] Rafita Ayers MD Unavailable +[phone] Kaelyn New Unavailable +[phone] Marino Hayes MD Unavailable +[phone] Marino Hayes MD Unavailable [phone] Encounter Details Date Type Department Care Team (Late st Contact Info) Description 12/08/2021 [facility] Surgical Weight Loss Clinic [address] [place] [phone] [facility] Social History Tobacco Use Types Packs/Day Years [...] was confirmed or suspected to have Coronavirus/COVID-19? Unable to assess 12/09/2021 3:02 PM CDT documented as of this encounter Plan of Treatment Upcoming Encounters Date Type Department Care Team (Late st Contact Info) Description 04/04/2023 1:00 PM ROLL TABLE OPERATOR Virtual Visit [facility] Surgery Clinic and Bariatrics Care [address] [place] [phone] Keke Brooks, RD 420 [facility] 84 [place], [place] [address] documented as of this encounter Goals Goal [...] Depression Total Score: 13 024 7:09 AM ROLL TABLE OPERATOR documented as of this encounter Care Teams Front Office Administrator Relationship Specialty Start Date End Date Onesimo Bruno MD PCP - General 08/11/06 Bhavna Mac, GenesisD 870 [place] [address] Pharmacist Pharmacist 07/11/18 Isaac Bro, RN Lead Parts Facilitator Primary Care - CC 09/01/18 Onesimo Bruno MD 1390 [place] [address] Assigned PCP 07/30/20 Nataliia Gomez MD 1600 [facility], [address] [place], [place] [address] Assigned Heart and Vascular Provider 08/29/20 10/08/22 Luly Grant MD 1655 [facility] [address] [place], [place] [address] Assigned Allergy Provider 08/29/20 04/16/22 Rafita Ayers MD 909 [place] [address] Assigned Pulmonology Provider 10/12/20 Flo Henry MD [address] [address] Assigned Behavioral Health Provider 09/21/20 Jana Vick, [facility] Community Health Worker Primary Care - CC 06/08/21 Tor Joseph DPM [facility] hospital5 [facility] [address] [place] [address] Assigned Musculoskeletal Provider 07/05/21 03/19/22 Lorri Larsen MD [address] [place] [address] Otolaryngology 07/21/21 Lorri Larsen MD [address] [place] [address] Assigned Surgical Provider 10/10/21 Rafita Ayers MD [address] [place] [address] Critical Care 11/30/21 Kaelyn New AuD [address] [place] [address] Chief Executive Officer Audiology 12/09/21 Marino Hayes MD [address] [place] [address] Cardiovascular Disease 09/28/22 Marino Hayes MD [address] [place] [address] Assigned Heart and Vascular Provider 10/09/22 documented as of this encounter
--- OUTSIDE RECORDS SUMMARY | 2023-02-27 14:32 | XMS_ITS | Encounter Summary ---
Author Name Unknown Organization [place] Address [address] [place] [address] Care Team Providers Care Equipment Operator Warehouse Name Role Phone Onesimo Bruno MD Primary Care Provider [phone] Bhavna Mac PharmD Unavailable [phone] Isaac Bro RN Unavailable Unavailable Onesimo Bruno MD Unavailable Nataliia Gomez MD Unavailable Luly Grant MD Unavailable +[phone] Rafita Ayers MD Unavailable +[phone] Flo Henry MD Unavailable +[phone] Jana Vick CHW Unavailable Unavailabl Tor Saldana DPM Unavailable +[phone] Lorri Larsen MD Unavailable +[phone] Lorri Larsen MD Unavailable +[phone] Rafita Ayers MD Unavailable +[phone] Kaelyn New Unavailable +[phone] Marino Hayes MD Unavailable +[phone] Marino Hayes MD Unavailable [phone] Encounter Details Date Type Department Care Team (Late st Contact Info) Description 01/20/2022 [facility] Surgical Weight Loss Clinic [address] [place] [phone] [facility] Social History Tobacco Use Types Packs/Day Years [...] Coronavirus/COVID-19? 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 WELDING LEAD BURNER documented as of this encounter Plan of Treatment Upcoming Encounters Date Type Department Care Team (Late st Contact Info) Description 04/04/2023 1:00 PM WELDING LEAD BURNER Virtual Visit [facility] Surgery Clinic and Bariatrics Care [address] [place] [phone] Keke Brooks, RD 420 [facility] 84 [place], [place] [address] documented as of this encounter Goals Goal [...] look into working with a personal computer specialist to assist me with resistance training. 5. I will report progress towards this goal at outreach telephone calls from the [facility] team Discussed 12/28/22 documented as of this encounter Visit Diagnoses Not on filedocumented in this encounter Additional Health Concerns Problem Noted Date Diagnosed Date HP GENERAL PROBLEM 11/13/2021 Assessment Noted Time PHQ-9 Depression Total Score: 13 024 7:09 AM WELDING LEAD BURNER documented as of this encounter Care Teams Equipment Operator Warehouse Relationship Specialty Start Date End Date Onesimo Bruno MD PCP - General 08/11/06 Bhavna Mac, GenesisD 870 [place] [address] Pharmacist Pharmacist 07/11/18 Isaac Bro, RN Lead Skiff Operator Primary Care - CC 09/01/18 Onesimo Bruno MD 1390 [place] [address] Assigned PCP 07/30/20 Nataliia Gomez MD 1600 [facility], [address] [place], [place] [address] Assigned Heart and Vascular Provider 08/29/20 10/08/22 Luly Grant MD 1655 [facility] [address] [place] [address] Assigned Allergy Provider 08/29/20 04/16/22 Rafita Ayers MD 909 [place] [address] Assigned Pulmonology Provider 10/12/20 Flo Henry MD [address] [address] Assigned Behavioral Health Provider 09/21/20 Jana Vick, [facility] Community Health Worker Primary Care - CC 06/08/21 Tor Joseph DPM On license of [facility]5 [facility] [address] [place] [address] Assigned Musculoskeletal Provider 07/05/21 03/19/22 Lorri Larsen MD [address] [place] [address] Otolaryngology 07/21/21 Lorri Larsen MD [address] [place] [address] Assigned Surgical Provider 10/10/21 Rafita Ayers MD [address] [place] [address] Critical Care 11/30/21 Kaelyn New, Shena [address] [place] [address] Last Repairer Audiology 12/09/21 Marino Hayes MD [address] [place] [address] Cardiovascular Disease 09/28/22 Marino Hayes MD [address] [place] [address] Assigned Heart and Vascular Provider 10/09/22 documented as of this encounter
--- OUTSIDE RECORDS SUMMARY | 2023-02-27 14:32 | XMS_ITS | Encounter Summary ---
Author Name Unknown Organization [place] Address [address] [place] [address] Care Team Providers Care Creative Manager Name Role Phone Onesimo Bruno MD Primary Care Provider [phone] Bhavna Mac PharmD Unavailable +[phone] Isaac Bro RN Unavailable Unavailable Onesimo Bruno MD Unavailable +[phone] Nataliia Gomez MD Unavailable Luly Grant MD Unavailable +[phone] Rafita Ayers MD Unavailable +[phone] Flo Henry MD Unavailable +[phone] Jana Vick CHW Unavailable Unavailabl Tor Saldana DPM Unavailable +[phone] Lorri Larsen MD Unavailable +[phone] Lorri Larsen MD Unavailable +[phone] Rafita Ayers MD Unavailable +[phone] Kaelyn New Unavailable +[phone] Marino Hayes MD Unavailable +[phone] Marino Hayes MD Unavailable +[phone] Encounter Details Date Type Department Care Team (Late st Contact Info) Description 01/15/2022 [facility] [address] [place] [phone] PrinceJoy kirby Social History Tobacco Use Types [...] Coronavirus/COVID-19? 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 FORMWORK CARPENTER documented as of this encounter Plan of Treatment Upcoming Encounters Date Type Department Care Team (Late st Contact Info) Description 04/04/2023 1:00 PM FORMWORK CARPENTER Virtual Visit [facility] Care [address] 200 [place] [phone] Kkee Brooks, RD 420 [facility] 84 [place], [place] [address] documented as of this encounter Goals Goal [...] I will look into working with a interpersonal communications professor to assist me with resistance training. 5. I will report progress towards this goal at outreach telephone calls from the CCC team Discussed 12/28/22 documented as of this encounter Visit Diagnoses Not on filedocumented in this encounter Additional Health Concerns Problem Noted Date Diagnosed Date HP GENERAL PROBLEM 11/13/2021 Assessment Noted Time PHQ-9 Depression Total Score: 13 024 7:09 AM FORMWORK CARPENTER documented as of this encounter Care Teams Creative Manager Relationship Specialty Start Date End Date Onesimo Bruno MD PCP - General 08/11/06 Bhavna Mac, GenesisD 870 [place] [address] Pharmacist Pharmacist 07/11/18 Isaac Bro, RN Lead Biology Instructor Primary Care - CC 09/01/18 Onesimo Bruno MD 1390 [place] [address] Assigned PCP 07/30/20 Nataliia Gomez MD [address] [facility], [address] [place], [place] [address] Assigned Heart and Vascular Provider 08/29/20 10/08/22 Luly Grant MD 1655 [facility] [address] [place] [address] Assigned Allergy Provider 08/29/20 04/16/22 Rafita Ayers MD 909 [place] [address] Assigned Pulmonology Provider 10/12/20 Flo Henry MD [address] [address] Assigned Behavioral Health Provider 09/21/20 Jana Vick, [facility] Community Health Worker Primary Care - CC 06/08/21 Tor Joseph DPM [facility]5 [facility] [address] [place] [address] Assigned Musculoskeletal Provider 07/05/21 03/19/22 Lorri Larsen MD [address] [place] [address] Otolaryngology 07/21/21 Lorri Larsen MD [address] [place] [address] Assigned Surgical Provider 10/10/21 Rafita Ayers MD [address] [place] [address] Critical Care 11/30/21 Kaelyn New, [place] [address] [place] [address] Animal Ride Attendant Audiology 12/09/21 Marino Hayes MD [address] [place] [address] Cardiovascular Disease 09/28/22 Marino Hayes MD [address] [place] [address] Assigned Heart and Vascular Provider 10/09/22 documented as of this encounter
--- OUTSIDE RECORDS SUMMARY | 2023-02-27 14:32 | XMS_ITS | Encounter Summary ---
Author Name Unknown Organization [place] Address [address] [place] [address] Care Team Providers Care Plate Stacker Name Role Phone Onesimo Bruno MD Primary Care Provider [phone] Bhavna Mac PharmD Unavailable +[phone] Isaac Bro RN Unavailable Unavailable Onesimo Bruno MD Unavailable +[phone] Nataliia Gomez MD Unavailable Luly Grant MD Unavailable +[phone] Rafita Ayers MD Unavailable +[phone] Flo Henry MD Unavailable +[phone] Jana Vick CHW Unavailable Unavailabl Tor Saldana DPM Unavailable +[phone] Lorri Larsen MD Unavailable +[phone] Lorri Larsen MD Unavailable +[phone] Rafita Ayers MD Unavailable +[phone] Kaelyn New Unavailable +[phone] Marino Hayes MD Unavailable +[phone] Marino Hayes MD Unavailable +[phone] Encounter Details Date Type Department Care Team (Late st Contact Info) Description 09/10/2021 [facility] Care Coordination [address] [place] [phone] Jana Vick, W Social History Tobacco Use Types Packs/Day Years Used Date Smoking Tobacco: Never Smokeless Tobacco: Never Alcohol Use Standard Drinks/Week Comments No 0 (1 standard drink = 0.6 oz pur e alcohol) PHQ-2 Answer Date Recorded PHQ-2 Score 2 06/22/2021 Sex and Gender Information Value Date Recorded Sex Assigned at Male 05/09/2020 12:49 AM CDT Gender Identity Male 05/09/2020 12:49 AM CDT Sexual Orientation Garcia 09/17/2020 11 :45 PM CDT COVID-19 Exposure Response Date Recorded In the last 10 days, have yo u been in contact with someone who was confirmed or suspected to have Coronavirus/COVID-19? No / Unsure 08/25/2021 11:20 AM CDT documented as of this encounter Plan of Treatment Upcoming Encounters Date Type Department Care Team (Late st Contact Info) Description 04/04/2023 1:00 PM DECK SPECIALIST Virtual Visit [facility] Surgery Clinic and Bariatrics Care [address] [phone] Keke Brooks, RD 420 [facility] 84 [place], [place] [address] documented as of this encounter Visit Diagnoses Not on filedocumented in this encounter Additional Health Concerns Assessment Noted Time PHQ-9 Depression Total Score: 13 024 7:09 AM DECK SPECIALIST documented as of this encounter Care Teams Plate Stacker Relationship Specialty Start Date End Date Onesimo Bruno MD PCP - General 08/11/06 Bhavna Mac PharmD 870 [place], [place] [phone] Pharmacist Pharmacist 07/11/18 Isaac Bro, RN Lead Laser Specialist Primary Care - CC 09/01/18 Onesimo Bruno MD [facility] [place] [address] Assigned PCP 07/30/20 Nataliia Gomez MD 1600 [facility], [address] [place] [address] Assigned Heart and Vascular Provider 08/29/20 10/08/22 Luly Grant MD [address] [place] [address] Assigned Allergy Provider 08/29/20 04/16/22 Rafita Ayers MD [address] [place] [address] Assigned Pulmonology Provider 10/12/20 Flo Henry MD [address] [place] [address] [place] [address] Assigned Behavioral Health Provider 09/21/20 Jana Vick, W Community Health Worker Primary Care - CC 06/08/21 Tor Joseph DPM [facility]5 [facility] [address] [place] [address] Assigned Musculoskeletal Provider 07/05/21 03/19/22 Lorri Larsen MD [address] [place] [address] 9670[address] Otolaryngology 07/21/21 Lorri Larsen MD [address] [place] [address] Assigned Surgical Provider 10/10/21 Rafita Ayers MD 909 [place] [address] Critical Care 11/30/21 Kaelyn New AuD [address]25 [place] [address] Alarm Security Or Surveillance Monitor Audiology 12/09/21 Marino Hayes MD [address] [place] [address] Cardiovascular Disease 09/28/22 Marino Hayes MD [address] [place] [address] Assigned Heart and Vascular Provider 10/09/22 documented as of this encounter
--- OUTSIDE RECORDS SUMMARY | 2023-02-27 14:32 | XMS_ITS | Encounter Summary ---
Author Name Unknown Organization [place] Address [address] [place] [address] Care Team Providers Care Inspector Balance Truing Name Role Phone Onesimo Bruno MD Primary Care Provider [phone] Bhavna Mac PharmD Unavailable +[phone] Isaac Bro RN Unavailable Unavailable Ilda Tapia CHW Unavailable +[phone] Onesimo Bruno MD Unavailable [phone] Nataliia Gomez MD Unavailable Luly Grant MD Unavailable +[phone] Rafita Ayers MD Unavailable +[phone] Flo Henry MD Unavailable +[phone] Susan Robert CHW Unavailable Unavailable Jana Vick CHW Unavailable UnavailTor Brown DPM Unavailable +[phone] Lorri Larsen MD Unavailable +[phone] Lorri Larsen MD Unavailable +[phone] Rafita Ayers MD Unavailable +[phone] Kaelyn New Unavailable +[phone] Marino Hayes MD Unavailable + [phone] Marino Hayes MD Unavailable + [phone] Encounter Details Date Type Department Care Team (Late st Contact Info) Description 10/12/2020 MyC Medical Advice [facility] 1600 [facility] [address] [place] [phone] Rafita Ayers MD [address] [place] [address] Social History Tobacco Use Types Packs/Day Years [...] (Late Contact Info) Description 04/04/2023 1:00 PM HYPERION ANALYST Virtual Visit [facility] Surgery Clinic and Bariatrics Care [place] 2945 [facility] [address] [place] [address] Keke Brooks, RD 420 [facility] 84 [place] [address] documented as of this encounter Visit Diagnoses Not on filedocumented in this encounter Additional Health Concerns Assessment Noted Time PHQ-9 Depression Total Score: 14 022 10:49 AM HYPERION ANALYST documented as of this encounter Care Teams Inspector Balance Truing Relationship Specialty Start Date End Date Onesimo Bruno MD PCP - General 08/11/06 Bhavna Mac, Elio 0 [place] [address] Pharmacist Pharmacist 07/11/18 Isaac Bro, RN Lead Barrel Cutter Primary Care - CC 09/01/18 Ilda Tapia CHW Community Health Worker Primary Care - CC 09/01/1804/22 Onesimo Bruno MD 1390 [place] [address] Assigned PCP 07/30/20 Nataliia Gomez MD 1600 [facility], [address] [place] [address] Assigned Heart and Vascular Provider 08/29/20 10/08/22 [place] [address] [place] [address] [address] [place] [address] Assigned Allergy Provider 08/29/20 04/16/22 Rafita Ayers MD 909 [place] [address] Assigned Pulmonology Provider 10/12/20 Flo Henry MD [facility] [address] [phone] Assigned Behavioral Health Provider 09/21/20 Susan Robert, ELISA Community Health Worker Primary Care - CC 04/23/2106/15/21 Jana Vick CHW Community Health Worker Primary Care - CC 06/08/21 Tor Joseph DPM 2945 [facility] [address] [place] [address] Assigned Musculoskeletal Provider 07/05/21 03/19/22 Lorri Larsen MD [address] [place] [address] Otolaryngology 07/21/21 Lorri Larsen MD [address] [place] [address] Assigned Surgical Provider 10/10/21 Rafita Ayers MD [address] [place] [address] Critical Care 11/30/21 Kaelyn New AuD [address] [place] [address] Screen Door Maker Audiology 12/09/21 Marino Hayes MD [address] [place] [address] Cardiovascular Disease 09/28/22 Marino Hayes MD [address] [place] [address] Assigned Heart and Vascular Provider 10/09/22 documented as of this encounter
--- OUTSIDE RECORDS SUMMARY | 2023-02-27 14:32 | XMS_ITS | Encounter Summary ---
Author Name Unknown Organization [place] Address [address] [place] [address] Care Team Providers Care Leather Seasoner Name Role Phone Onesimo Bruno MD Primary Care Provider [phone] Bhavna Mac PharmD Unavailable +[phone] Isaac Bro RN Unavailable Unavailable Ilda Tapia CHW Unavailable +[phone] Onesimo Bruno MD Unavailable [phone] Nataliia Gomez MD Unavailable Luly Grant MD Unavailable +[phone] Rafita Ayers MD Unavailable +[phone] Flo Henry MD Unavailable +[phone] Susan Robert CHW Unavailable Unavailable Jana Vick CHW Unavailable UnavailTor Brown DPM Unavailable +[phone] Lorri Larsen MD Unavailable +[phone] Lorri Larsen MD Unavailable +[phone] Rafita Ayers MD Unavailable +[phone] Kaelyn New Unavailable +[phone] Marino Hayes MD Unavailable + [phone] Marino Hayes MD Unavailable + [phone] Encounter Details Date Type Department Care Team (Late st Contact Info) Description 01/24/2021 MyC Medical Advice [facility] 1390 [place] [address] Onesimo Bruno MD 1390 [place] [address] Social History Tobacco Use Types Packs/Day Years [...] (Late Contact Info) Description 04/04/2023 1:00 PM COLOR PASTE MIXER Virtual Visit [facility] Surgery Clinic and Bariatrics Care [address] [address] Keke Brooks, RD 420 [facility] 84 [place], [place] [address] documented as of this encounter Visit Diagnoses Not on filedocumented in this encounter Additional Health Concerns Assessment Noted Time PHQ-9 Depression Total Score: 7 11/05/19 21 4:49 PM CDT documented as of this encounter Care Teams Leather Seasoner Relationship Specialty Start Date End Date Onesimo Bruno MD PCP - General 08/11/06 Bhavna aMc, Elio 870 [place] [address] Pharmacist Pharmacist 07/11/18 Isaac Bro, RN Lead Level Vial Grinder Primary Care - CC 09/01/18 Ilda Tapia, W Community Health Worker Primary Care - CC 09/01/1804/22 Onesimo Bruno MD 1390 [place] [address] Assigned PCP 07/30/20 Nataliia Gomez MD [address] [facility], [address] [place] [address] Assigned Heart and Vascular Provider 08/29/20 10/08/22 Luly Grant MD 1655 [facility] [address] [place] [address] Assigned Allergy Provider 08/29/20 04/16/22 Rafita Ayers MD [address] [place] [address]66[address] Assigned Pulmonology Provider 10/12/20 Flo Henry MD [facility] [address] Assigned Behavioral Health Provider 09/21/20 Susan Robert Vaibhav Community Health Worker Primary Care - CC 04/23/2106/15/21 Jana Vick Vaibhav Community Health Worker Primary Care - CC 06/08/21 Tor Joseph DPM 2945 [facility] [address] [place] [address] Assigned Musculoskeletal Provider 07/05/21 03/19/22 Lorri Larsen MD [address] [place] [address] Otolaryngology 07/21/21 Lorri Larsen MD [address] [place] [address] 762265 Assigned Surgical Provider 10/10/21 Rafita Ayers MD [address] [place] [address] 698445 Critical Care 11/30/21 Kaelyn New AuD [address] [place] [address] Typesetter Perforator Operator Audiology 12/09/21 Marino Hayes MD [address] [place] [address] Cardiovascular Disease 09/28/22 Marino Hayes MD [address] [place] [address] Assigned Heart and Vascular Provider 10/09/22 documented as of this encounter
--- OUTSIDE RECORDS SUMMARY | 2023-02-27 14:32 | XMS_ITS | Encounter Summary ---
Author Name Unknown Organization [place] Address [address] [facility] [place] [address] Care Team Providers Care Chief Telephone Operator Name Role Phone Onesimo Bruno MD Primary Care Provider [phone] Bhavna Mac PharmD Unavailable +[phone] Isaac Bro RN Unavailable Unavailable Onesimo Bruno MD Unavailable +[phone] Nataliia Gomez MD Unavailable Luly Grant MD Unavailable +[phone] Rafita Ayers MD Unavailable +[phone] Flo Henry MD Unavailable +[phone] Jana Vick CHW Unavailable Unavailabl Tor Saldana DPM Unavailable +[phone] Lorri Larsen MD Unavailable +[phone] Lorri Larsen MD Unavailable +[phone] Rafita Ayers MD Unavailable +[phone] Kaelyn New Unavailable +[phone] Encounter Details Date Type Department Care Team (Latest Contact Info) Description 12/30/[address] [facility] 24[address] [place] [address] Outside, Provider PHYSICIAN ORDER [facility] Social History Tobacco Use Types Packs/Day [...] Coronavirus/COVID-19? No / Unsure 04/05/2022 1:34 PM LACE ROLLER OPERATOR documented as of this encounter Plan of Treatment Upcoming Encounters Date Type Department Care Team (Late st Contact Info) Description 04/04/2023 1:00 PM LACE ROLLER OPERATOR Virtual Visit [facility] Surgery Clinic and Bariatrics Care [address] 200 [place] [address] Keke Brooks, RD 420 [facility] 84 [place] [address] documented as of this encounter Goals Goal [...] goal at outreach telephone calls from the [facility] team Discussed 12/28/22 documented as of this encounter Visit Diagnoses Not on filedocumented in this encounter Additional Health Concerns Problem Noted Date Diagnosed Date HP GENERAL PROBLEM 11/13/2021 Assessment Noted Time PHQ-9 Depression Total Score: 13 024 7:09 AM LACE ROLLER OPERATOR documented as of this encounter Care Teams Chief Telephone Operator Relationship Specialty Start Date End Date Onesimo Bruno MD PCP - General 08/11/06 Bhavna Mac, Elio 870 [place] [address] Pharmacist Pharmacist 07/11/18 Isaac Bro, RN Lead Heat And Vent Aircraft Mechanic Primary Care - CC 09/01/18 Onesimo Bruno MD 1390 [place] [address] Assigned PCP 07/30/20 Nataliia Gomez MD 1600 [facility], [address] [place] [address] Assigned Heart and Vascular Provider 08/29/20 10/08/22 Luly Grant MD 1655 [facility] [address] [place] [address] Assigned Allergy Provider 08/29/2004/16 Rafita Ayers MD 909 [place] [address] Assigned Pulmonology Provider 10/12/20 Flo Henry MD [facility]5 [facility] 250 [place] [address] Assigned Behavioral Health Provider 09/21/20 Jana Vick, MORRISW Community Health Worker Primary Care - CC 06/08/21 Tor Joseph DPM [address] [facility] [address] [place] [address] Assigned Musculoskeletal Provider 07/05/21 03/19/22 Lorri Larsen MD [address] [place] [address] Otolaryngology 07/21/21 Lorri Larsen MD [address] [place] [address] Assigned Surgical Provider 10/10/21 Rafita Ayers MD [address] [place] [address] Critical Care 11/30/21 Kaelyn New AuD [facility]5 [place] [address] Body Sander Audiology 12/09/21 documented as of this encounter
--- OUTSIDE RECORDS SUMMARY | 2023-02-27 14:32 | XMS_ITS | Encounter Summary ---
Author Name Unknown Organization [place] Address [address] [place] [address] Care Team Providers Care Commercial Marketing Specialist Name Role Phone Onesimo Bruno MD Primary Care Provider [phone] Bhavna Mac PharmD Unavailable +[phone] Isaac Bro RN Unavailable Unavailable Onesimo Bruno MD Unavailable +[phone] Nataliia Gomez MD Unavailable Luly Grant MD Unavailable +[phone] Rafita Ayers MD Unavailable +[phone] Flo Henry MD Unavailable +[phone] Jana Vick CHW Unavailable Unavailabl Tor Saldana DPM Unavailable +[phone] Lorri Larsen MD Unavailable +[phone] Lorri Larsen MD Unavailable +[phone] Rafita Ayers MD Unavailable +[phone] Kaelyn New Unavailable +[phone] Marino Hayes MD Unavailable +[phone] Marino Hayes MD Unavailable +[phone] Encounter Details Date Type Department Care Team (Late st Contact Info) Description 01/21/2022 [facility] Weight Loss [facility] [address] [place] [phone] [place] Social History Tobacco Use Types Packs/Day Years [...] Coronavirus/COVID-19? 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 ANIMAL CARE WORKER documented as of this encounter Plan of Treatment Upcoming Encounters Date Type Department Care Team (Late st Contact Info) Description 04/04/2023 1:00 PM ANIMAL CARE WORKER Virtual Visit [facility] Surgery Clinic and Bariatrics Care [address] [place] [phone] Keke Brooks, RD 420 [facility] 84 [place], [place] [address] documented as of this encounter Goals Goal [...] Depression Total Score: 13 024 7:09 AM ANIMAL CARE WORKER documented as of this encounter Care Teams Commercial Marketing Specialist Relationship Specialty Start Date End Date Onesimo Bruno MD PCP - General 08/11/06 Bhavna Mac, PharmD 870 [place] [address] Pharmacist Pharmacist 07/11/18 Isaac Bro, RN Lead Linux Devops Engineer Primary Care - CC 09/01/18 Onesimo Bruno MD 1390 [place] [address] Assigned PCP 07/30/20 Nataliia Gomez MD 1600 [facility], [address] [place], [place] [address] Assigned Heart and Vascular Provider 08/29/20 10/08/22 Luly Grant MD 1655 [facility] [address] [place] [address] Assigned Allergy Provider 08/29/20 04/16/22 Rafita Ayers MD 909 [place] [address] Assigned Pulmonology Provider 10/12/20 Flo Henry MD [address] [address] Assigned Behavioral Health Provider 09/21/20 Jana Vick, [facility] Community Health Worker Primary Care - CC 06/08/21 Tor Joseph DPM [facility]5 [facility] 200[address] [place] [address] Assigned Musculoskeletal Provider 07/05/21 03/19/22 Lorri Larsen MD [address] [place] [address] Otolaryngology 07/21/21 Lorri Larsen MD [address] [place] [address] Assigned Surgical Provider 10/10/21 Rafita Ayers MD [address] [place] [address] Critical Care 11/30/21 Kaelyn New, Shena [address] [place] [address] Shot Bagger Audiology 12/09/21 Marino Hayes MD [address] [place] [address] Cardiovascular Disease 09/28/22 Marino Hayes MD [address] [place] [address] Assigned Heart and Vascular Provider 10/09/22 documented as of this encounter
--- OUTSIDE RECORDS SUMMARY | 2023-02-27 14:32 | XMS_ITS | Encounter Summary ---
Author Name Unknown Organization [facility] Address [address] [place] [address] Care Team Providers Care Ssn/Ssbn Weapons Equipment Operator Name Role Phone Onesimo Bruno MD Primary Care Provider [phone] Bhavna Mac PharmD Unavailable +[phone] Isaac Bro RN Unavailable Unavailable Ilda Tapia CHW Unavailable +[phone] Onesimo Bruno MD Unavailable [phone] Nataliia Gomez MD Unavailable Luly Grant MD Unavailable +[phone] Rafita Ayers MD Unavailable +[phone] Flo Henry MD Unavailable +[phone] Susan Robert CHW Unavailable Unavailable Jana Vick CHW Unavailable UnavailTor Brown DPM Unavailable +[phone] Lorri Larsen MD Unavailable +[phone] Lorri Larsen MD Unavailable +[phone] Rafita Ayers MD Unavailable +[phone] Kaelyn New Unavailable +[phone] Marino Hayes MD Unavailable + [phone] Marino Hayes MD Unavailable + [phone] Encounter Details Date Type Department Care Team (Late st Contact Info) Description 01/24/2021 MyC Medical Advice [address] 200 [place] [phone] [place] [address] [place] [address] 111 [place], [place] [phone] Social History Tobacco Use Types Packs/Day Years [...] st Contact Info) Description 04/04/2023 1:00 PM SALES RESEARCH ANALYST Virtual Visit [facility] [address] 200 [place] [phone] Keke Brooks, RD 420 [facility] 84 [place], [place] [address] documented as of this encounter Visit Diagnoses Not on filedocumented in this encounter Additional Health Concerns Assessment Noted Time PHQ-9 Depression Total Score: 7 11/05/19 21 4:49 PM CDT documented as of this encounter Care Teams Ssn/Ssbn Weapons Equipment Operator Relationship Specialty Start Date End Date Onesimo Bruno MD PCP - General 08/11/06 Bhavna Mac, Elio [address]70 [place] [address] Pharmacist Pharmacist 07/11/18 Isaac Bro, RN Lead Fire Prevention Bureau Captain Primary Care - CC 09/01/18 Ilda Tapia, Vaibhav Community Health Worker Primary Care - CC 09/01/1804/22 Onesimo Bruno MD 1390 [place] [address] Assigned PCP 07/30/20 Nataliia Gomez MD 1600 [facility], [address] [place] [address] Assigned Heart and Vascular Provider 08/29/20 10/08/22 [place] [address] [place] [address] [address] [place] [address] Assigned Allergy Provider 08/29/20 04/16/22 Rafita Ayers MD [address] [place] [address] Assigned Pulmonology Provider 10/12/20 Flo Henry MD [facility] [address] [address] Assigned Behavioral Health Provider 09/21/20 Susan Robert Vaibhav Community Health Worker Primary Care - CC 04/23/2106/15/21 Jana Vick Vaibhav Community Health Worker Primary Care - CC 06/08/21 Tor Joseph DPM 2945 [facility] [address] [place] [address] Assigned Musculoskeletal Provider 07/05/21 03/19/22 Lorri Larsen MD [address] [place] [address] 729705 Otolaryngology 07/21/21 Lorri Larsen MD [address] [place] [address] 410305 Assigned Surgical Provider 10/10/21 Rafita Ayers MD [address] [place] [address] 310245 Critical Care 11/30/21 Kaelyn New AuD [address] [place] [address] Software Engineer Intern Audiology 12/09/21 Marino Hayes MD [address] [place] [address] Cardiovascular Disease 09/28/22 Marino Hayes MD [address] [place] [address] Assigned Heart and Vascular Provider 10/09/22 documented as of this encounter
--- OUTSIDE RECORDS SUMMARY | 2023-02-27 14:32 | XMS_ITS | Encounter Summary ---
Author Name Unknown Organization [facility] Address [address] [place] [address] Care Team Providers Care Gas Tender Name Role Phone Onesimo Bruno MD Primary Care Provider [phone] Bhavna Mac PharmD Unavailable +[phone] Isaac Bro RN Unavailable Unavailable Onesimo Bruno MD Unavailable +[phone] Nataliia Gomez MD Unavailable Luly Grant MD Unavailable +[phone] Rafita Ayers MD Unavailable +[phone] Flo Henry MD Unavailable +[phone] Jana Vick CHW Unavailable Unavailabl Tor Saldana DPM Unavailable +[phone] Lorri Larsen MD Unavailable +[phone] Lorri Larsen MD Unavailable +[phone] Rafita Ayers MD Unavailable +[phone] Kaelyn New Unavailable +[phone] Marino Hayes MD Unavailable +[phone] Marino Hayes MD Unavailable +[phone] Encounter Details Date Type Department Care Team (Late st Contact Info) Description 12/01/2021 [facility] [address] [place] [phone] Nadia Joy Clark Social History Tobacco Use Types Packs/Day Years [...] Contact Info) Description 04/04/2023 1:00 PM SALES PROFESSIONAL Virtual Visit [facility] [address] 200 [place] [phone] Keke Brooks, RD 420 [facility] 84 [place], [place] [address] documented as of this encounter Goals Goal [...] Depression Total Score: 13 024 7:09 AM SALES PROFESSIONAL documented as of this encounter Care Teams Gas Tender Relationship Specialty Start Date End Date Onesimo Bruno MD PCP - General 08/11/06 Bhavna Mac, GenesisD 870 [place] [address] Pharmacist Pharmacist 07/11/18 Isaac Bro, RN Lead Collection Support Specialist Primary Care - CC 09/01/18 Onesimo Bruno MD 1390 [place] [address] Assigned PCP 07/30/20 Nataliia Gomez MD 1600 [facility], [address] [place], [place] [phone] Assigned Heart and Vascular Provider 08/29/20 10/08/22 Luly Grant MD 1655 [facility] [address] [place], [place] [phone] Assigned Allergy Provider 08/29/20 04/16/22 Rafita Ayers MD 909 [place] [address] Assigned Pulmonology Provider 10/12/20 Flo Henry MD [address] [address] Assigned Behavioral Health Provider 09/21/20 Jana Vick, [facility] Community Health Worker Primary Care - CC 06/08/21 Tor Joseph DPM [facility]5 [facility] [address] [place] [address] Assigned Musculoskeletal Provider 07/05/21 03/19/22 Lorri Larsen MD [address] [place] [address] Otolaryngology 07/21/21 Lorri Larsen MD [address] [place] [address] Assigned Surgical Provider 10/10/21 Rafita Ayers MD [address] [place] [address] Critical Care 11/30/21 Kaelyn New AuD [address] [place] [address] Assisted Sales Representative Audiology 12/09/21 Marino Hayes MD [address] [place] [address] Cardiovascular Disease 09/28/22 Marino Hayes MD [address] [place] [address] Assigned Heart and Vascular Provider 10/09/22 documented as of this encounter
--- OUTSIDE RECORDS SUMMARY | 2023-02-27 14:33 | XMS_ITS | Encounter Summary ---
Author Name Unknown Organization [facility] Address [address] [place] [address] Care Team Providers Care Manager Web Name Role Phone Onesimo Bruno MD Primary Care Provider [phone] Bhavna Mac PharmD Unavailable +[phone] Isaac Bro RN Unavailable Unavailable Ilda Tapia CHW Unavailable +[phone] Onesimo Bruno MD Unavailable [phone] Manuel Calderon MD, Jon Unavailable +[phone] Nataliia Gomez MD Unavailable Luly Grant MD Unavailable +[phone] Rafita Ayers MD Unavailable +[phone] Flo Henry MD Unavailable +[phone] Susan Robert CHW Unavailable Unavailable Jana Vick CHW Unavailable UnavailTor Brown DPM Unavailable +[phone] Lrori Larsen MD Unavailable +[phone] Lorri Larsen MD Unavailable +[phone] Rafita Ayers MD Unavailable +[phone] Kaelyn New Unavailable +[phone] Marino Hayes MD Unavailable +[phone] Marino Hayes MD Unavailable + [phone] Encounter Details Date Type Department Care Team (Late st Contact Info) Description 10/22/2014 Records - [facility] CONVERSION Scan, Non-Provider Social History Tobacco Use Types Packs/Day Years Used Date Smoking Tobacco: Never Assessed Sex and Gender Information Value Date Recorded Sex Assigned at Male 05/09/2020 12:49 AM CDT Gender Identity Male 05/09/2020 12:49 AM CDT Sexual Orientation Garcia 09/17/2020 11 :45 PM CDT documented as of this encounter Plan of Treatment Upcoming Encounters Date Type Department Care Team (Late st Contact Info) Description 04/04/2023 1:00 PM DRAG DOWN Virtual Visit [facility] [address] 200 [place] [phone] Keke Brooks, RD 420 [facility] 84 [place], [place] [address] documented as of this encounter Visit Diagnoses Not on filedocumented in this encounter Care Teams Manager Web Relationship Specialty Start Date End Date Onesimo Bruno MD PCP - General 08/11/06 Bhavna Mac, PharmD 870 [place] [address] Pharmacist Pharmacist 07/11/18 Isaac Bro, RN Lead Mixing Technician Primary Care - CC 09/01/18 Ilda Tapia, [facility] Community Health Worker Primary Care - CC 09/01/1804/22 Onesimo Brnuo MD [address]0 [place] [address] Assigned PCP 07/30/20 Florentino Jackson MD [facility] [address] [place] [address] [place] [address] Assigned Surgical Provider 08/29/20 09/27/20 Nataliia Gomez MD 1600 [facility], [address] [place] [address] Assigned Heart and Vascular Provider 08/29/20 10/08/22 Luly Grant MD [address] [place] [address] Assigned Allergy Provider 08/29/20 04/16/22 Rafita Ayers MD [address] [place] [address] Assigned Pulmonology Provider 10/12/20 Flo Henry MD [facility] [address] [address] Assigned Behavioral Health Provider 09/21/20 Susan Robert CHW Community Health Worker Primary Care - CC 04/23/2106/15/21 Jana Vick CHW Community Health Worker Primary Care - CC 06/08/21 Tor Joseph DPM 2945 [facility] [address] [place] [address] Assigned Musculoskeletal Provider 07/05/21 03/19/22 Lorri Larsen MD [address] [place] [address] [phone] Otolaryngology 07/21/21 Lorri Larsen MD [address] [place] [address] [id number] Assigned Surgical Provider 10/10/21 Rafita Ayers MD [address] [place] [address] Critical Care 11/30/21 Kaelyn New AuD [address] [place] [address] Interrelated Special Education Teacher Audiology 12/09/21 Marino Hayes MD [address] [place] [address] Cardiovascular Disease 09/28/22 Marino Hayes MD [address] [place] [address] Assigned Heart and Vascular Provider 10/09/22 documented as of this encounter
--- OUTSIDE RECORDS SUMMARY | 2023-02-27 14:33 | XMS_ITS | Encounter Summary ---
Author Name Unknown Organization [place] Address [address] [place] [address] Care Team Providers Care Auto Brake Technician Name Role Phone Onesimo Bruno MD Primary Care Provider [phone] Bhavna Mac PharmD Unavailable +[phone] Isaac Bro RN Unavailable Unavailable Ilda Tapia CHW Unavailable +[phone] Onesimo Bruno MD Unavailable [phone] Nataliia Gomez MD Unavailable Luly Grant MD Unavailable +[phone] Rafita Ayers MD Unavailable +[phone] Flo Henry MD Unavailable +[phone] Susan Robert CHW Unavailable Unavailable Jana Vick CHW Unavailable UnavailTor Brown DPM Unavailable +[phone] Lorri Larsen MD Unavailable +[phone] Lorri Larsen MD Unavailable +[phone] Rafita Ayers MD Unavailable +[phone] Kaelyn New Unavailable +[phone] Marino Hayes MD Unavailable + [phone] Marino Hayes MD Unavailable + [phone] Encounter Details Date Type Department Care Team (Late st Contact Info) Description 10/10/2020 MyC Medical Advice M [address] 200 [place] [phone] [place] [address] [place] [address] 111 [place], [place] [phone] Social History Tobacco Use Types Packs/Day Years [...] st Contact Info) Description 04/04/2023 1:00 PM PIPER INSTALLER Virtual Visit [facility] [address] [phone] Keke Brooks, RD 420 [facility] 84 [place] [address] documented as of this encounter Visit Diagnoses Not on filedocumented in this encounter Additional Health Concerns Assessment Noted Time PHQ-9 Depression Total Score: 14 022 10:49 AM PIPER INSTALLER documented as of this encounter Care Teams Auto Brake Technician Relationship Specialty Start Date End Date Onesimo Bruno MD PCP - General 08/11/06 Bhavna Mac, Elio 0 [place], [place] [phone] Pharmacist Pharmacist 07/11/18 Isaac Bro, RN Lead Colorer Hides And Skins Primary Care - CC 09/01/18 Ilda Tapia W Community Health Worker Primary Care - CC 09/01/1804/22 Onesimo Bruno MD 1390 [place] [address] Assigned PCP 07/30/20 Nataliia Gomez MD 1600 [facility] [address] [place] [address] Assigned Heart and Vascular Provider 08/29/20 10/08/22 [place] [address] [place] [address] [address] [place] [address] Assigned Allergy Provider 08/29/20 04/16/22 Rafita Ayers MD 909 [place] [address] Assigned Pulmonology Provider 10/12/20 Flo Henry MD [address] [phone] Assigned Behavioral Health Provider 09/21/20 Susan Robert CHW Community Health Worker Primary Care - CC 04/23/2106/15/21 Jana Vick CHW Community Health Worker Primary Care - CC 06/08/21 Tor Joseph DPM 2945 [facility] [address] [place] [address] Assigned Musculoskeletal Provider 07/05/21 03/19/22 Lorri Larsen MD [address] [place] [address] Otolaryngology 07/21/21 Lorri Larsen MD [address] [place] [address] Assigned Surgical Provider 10/10/21 Rafita Ayers MD [address] [place] [address] Critical Care 11/30/21 Kaelyn New AuD [address] [place] [address] Blind Teacher Audiology 12/09/21 Marino Hayes MD [address] [place] [address] Cardiovascular Disease 09/28/22 Marino Hayes MD [address] [place] [address] Assigned Heart and Vascular Provider 10/09/22 documented as of this encounter
--- OUTSIDE RECORDS SUMMARY | 2023-02-27 14:33 | XMS_ITS ---
Author Name Unknown Organization [facility] Address [address] [place] [address] Care Team Providers Care Spine Nurse Name Role Phone Onesimo Bruno MD Primary Care Provider [phone] Bhavna Mac PharmD Unavailable +[phone] Isaac Bro RN Unavailable Unavailable Onesimo Bruno MD Unavailable +[phone] Rafita Ayers MD Unavailable +[phone] Flo Henry MD Unavailable +[phone] Jana Vick CHW Unavailable UnavailLorri Ulloa MD Unavailable +[phone] Lorri Larsen MD Unavailable +[phone] Rafita Ayers MD Unavailable +[phone] Kaelyn New Unavailable +[phone] Marino Hayes MD Unavailable + [phone] Marino Hayes MD Unavailable + [phone] Primary Care Care Coordination Status:Enrolled (Active) Start date:11/06/2019 Enrollment date:11/06/2019 Case Team Name Relationship Phone Isaac Bro RN Lead Correction Officer [facility](Respons ible Staff) Jana Vick, CHW Community Health Worker Continued Care and Services Coordination
--- OUTSIDE RECORDS SUMMARY | 2023-02-27 14:33 | XMS_ITS | Encounter Summary ---
Author Name Unknown Organization [facility] Address [address] [place] [address] Care Team Providers Care Contamination Consultant Name Role Phone Onesimo Bruno MD Primary Care Provider [phone] Bhavna Mac PharmD Unavailable [phone] Isaac Bro RN Unavailable Unavailable Ilda Tapia CHW Unavailable [phone] Onesimo Bruno MD Unavailable [phone] Manuel Calderon MD, Jon Unavailable [phone] Nataliia Gomez MD Unavailable Luly Grant MD Unavailable [phone] Rafita Ayers MD Unavailable [phone] Flo Henry MD Unavailable [phone] Susan Robert CHW Unavailable Unavailable Jana Vick CHW Unavailable UnavailTor Brown DPM Unavailable [phone] Lorri Larsen MD Unavailable [phone] Lorri Larsen MD Unavailable [phone] Rafita Ayers MD Unavailable [phone] Kaelyn New Unavailable [phone] Marino Hayes MD Unavailable [phone] Marino Hayes MD Unavailable [phone] Reason for Visit * Reason Comments Other Inpatient Follow Up; [facility] 08/11;08/13; Atypical Pneumonia x 3 weeks Encounter Details Date Type Department Care Team (Late st Contact Info) Description 08/19/2020 Office Visit - [facility] [address] [place] [phone] Onesimo Bruno MD [address] [place] [address] Atypical pneumonia; NAVAS (dyspnea on exertion); Wheezing; Tachycardia; Morbid obesity (H); Other pulmonary embolism without acute cor pulmonale, unspecified chronicity (H); Encounter for therapeutic drug monitoring Social History Tobacco Use Types Packs/Day Years [...] Sign Reading Time Taken Comments Blood Pressure 130/70 08/19/2020 1:28 PM CDT Pulse 104 08/19/2020 1:28 PM CDT Temperature - - Respiratory Rate - - Oxygen Saturation 98% 08/19/2020 1:28 PM CDT Inhaled Oxygen Concentration - - Weight 132.3 kg (291 lb 9.6 oz) 08/19/2020 1:28 PM CDT Height - - Body Mass Index 39.55 04/29/2020 3:16 PM CDT documented in this encounter Progress Notes * Onesimo Bruno MD - 08/19/2020 1:40 PM CDT Progress Notes by Onesimo Bruno MD at 08/19/2020 1:40 PM Author: Onesimo Bruno MD Service: -- Author Type: Physician Filed: 08/19/2020 2:42 PM Encounter Date: 08/19/2020 Status: Signed Citizen Participation Specialist: Onesimo Bruno MD (Physician) Office Visit - Follow Up Roger Luong Dr. 69 y.o. male Date of Visit: 08/19/2020 Chief Complaint Patient presents with ? Inpatient Follow Up [facility] 08/11;08/13; Atypical Pneumonia x 3 weeks Assessment and Plan 1. Atypical pneumonia He still is no better after the Z-Rober. Will broaden his antibiotics with Augmentin and doxy. I do not think he needs further steroids. If things are worsening despite this treatment he is to be seen again in hospital and I discussed that with him. - amoxicillin-clavulanate (AUGMENTIN) 875-125 mg per tablet; Take 1 tablet by mouth 2 (two) times aday for 7 days. Dispense: 14 tablet; Refill: 0 - doxycycline (VIBRA-TABS) 100 MG tablet; Take 1 tablet (100 mg total) by mouth 2 (two) times a dayfor 7 days. Dispense: 14 tablet; Refill: 0 2. NAVAS (dyspnea on exertion) As above. If things are worsening would need pulmonary consultation. 3. Wheezing (Symptom) Currently no wheezing. Continue inhaled medications only. No further steroids at this time. 4. Tachycardia Likely due to illness and steroids. - Electrocardiogram Perform and Read 5. Morbid obesity (H) As above. 6. Other pulmonary embolism without acute cor pulmonale, unspecified chronicity (H) He is not hypoxic. No indication of recurrent PE. He has been compliant with his Xarelto. No follow-ups on file. History of Present Illness This [address] Roger Luong comes in today for follow-up. Apparently he was in the emergency room at [facility] on several occasions with cough and shortness of breath. He was told he had an atypical pneumonia and sent out on prednisone and Z-Rober. He was also given prednisone by his aw[employer] solution architect Dr. Grant here recently. He continues to have cough that is quite profound. Keeps him up sometimes although last night he slept well. He has marked dyspnea on exertion. Ongoing wheezing. He is takinghis inhaled medications. He has not missed his Xarelto. Does have a history of PE but assures me hehas been taking his antithrombotic. He denies any other medical problems for me today. He is hoping to get better. He was tested for Covid apparently although I do not have those results. Review of Systems: A comprehensive review of systems was negative except as noted. Medications, Allergies and Problem List Reviewed, reconciled and updated Post Discharge Medication Reconciliation Status: Physical Exam General Appearance: Pleasant gentleman with occasional cough through the interview. Mildly tachycardic. O2 sat 98% on room air. Lungs are fairly clear today without crackles or wheezes. BP 130/70 (Patient Site: Left Arm, Patient Position: Sitting, Cuff Size: Adult Regular) Pulse (!)104 Wt (!) 291 lb 9.6 oz (132.3 kg) SpO2 98% BMI 39.55 kg/m?? Additional Information Current Outpatient Medications Medication Sig Dispense Refill ? albuterol (VENTOLIN HFA) 90 mcg/actuation inhaler 2 puffs every 6 hours as needed. 1 Inhaler 0 ? armodafinil (NUVIGIL) 250 mg tablet Take 250 mg by mouth daily. ? benzonatate (TESSALON) 200 MG capsule TAKE 1 CAPSULE BY MOUTH THREE TIMES DAILY NEEDED ? buPROPion (WELLBUTRIN XL) 300 MG 24 hr tablet TAKE 1 TABLET BY MOUTH EVERY MORNING. APPT FOR REFILLS 30 tablet 11 ? chlorhexidine (PERIDEX) 0.12 % solution Apply 15 mL to the mouth or throat 2 (two) times a day asneeded. ? cholecalciferol, vitamin D3, (VITAMIN D3) 1,000 unit capsule Take 2,000 Units by mouth daily. ? codeine-guaiFENesin (GUAIFENESIN AC) 10-100 mg/5 mL liquid TAKE 5 TO 10 ML BY MOUTH EVERY 6 HOURS ? divalproex (DEPAKOTE) 500 MG 24 hr tablet Take 1,500 mg by mouth bedtime. Take 3 at bedtime ? docoshexanoic acid-eicosapent 500 mg (FISH OIL) 500-100 mg cap capsule Take 1,000 mg by mouth 2 (two) times a day. ? ezetimibe (ZETIA) 10 mg tablet Take 1 tablet (10 mg total) by mouth at bedtime. 90 tablet 3 ? fluticasone furoate-vilanteroL (BREO ELLIPTA) 200-25 mcg/dose DsDv inhaler Inhale 1 puff daily. 1each 5 ? fluticasone propionate (FLONASE) 50 mcg/actuation nasal spray INSTILL 2 SPRAYS INTO EACH NOSTRIL DAILY (Patient taking differently: INSTILL 2 SPRAYS INTO EACH NOSTRIL DAILY NEEDED) 48 g 3 ? gabapentin (NEURONTIN) 300 MG capsule Take 300 mg by mouth 2 (two) times a day. ? ipratropium-albuteroL (DUO-NEB) 0.5-2.5 mg/3 mL nebulizer Use every 4-6 hours as needed for shortness of breath 1 vial 3 ? lisinopriL (PRINIVIL,ZESTRIL) 5 MG tablet TAKE 1 TABLET BY MOUTH DAILY 90 tablet 3 ? metFORMIN (GLUCOPHAGE-XR) 500 MG 24 hr tablet TAKE 1 TABLET BY MOUTH DAILY 90 tablet 3 ? metoprolol succinate (TOPROL-XL) 50 MG 24 hr tablet TAKE 1 TABLET BY MOUTH DAILY 90 tablet 2 ? nebulizers [facility] Please dispense one machine and associated necessary equipment for asthma 1 each 0 ? nitroglycerin (NITROSTAT) 0.[address] 1 TABLET UNDER DONALDO TONGUE EVERY 5 MINUTES NEEDED FOR CHEST PAIN. 25 tablet 5 ? peg 400-propylene glycol (SYSTANE) 0.4-0.3 % Drop Administer 1 drop to both eyes 4 (four) times aday as needed. ? rosuvastatin (CRESTOR) 40 MG tablet TAKE 1 TABLET BY MOUTH DAILY 90 tablet 3 ? tamsulosin (FLOMAX) 0.4 mg cap TAKE 1 CAPSULE BY MOUTH DAILY AFTER SUPPER 90 capsule 3 ? venlafaxine (EFFEXOR-XR) 150 MG 24 hr capsule Take 150 mg by mouth daily. ? XARELTO 20 mg tablet TAKE 1 TABLET BY MOUTH DAILY 90 tablet 3 ? amoxicillin-clavulanate (AUGMENTIN) 875-125 mg per tablet Take 1 tablet by mouth 2 (two) times a day for 7 days. 14 tablet 0 ? doxycycline (VIBRA-TABS) 100 MG tablet Take 1 tablet (100 mg total) by mouth 2 (two) times a day for 7 days. 14 tablet 0 No current facility-administered medications for this visit. Allergies Allergen Reactions ? Oxycodone Itching and Rash Social History Tobacco Use ? Smoking status: Never Smoker ? Smokeless tobacco: Never Used Substance Use Topics ? Alcohol use: No ? Drug use: No Review and/or order of clinical lab tests: Review and/or order of radiology tests: Review and/or order of medicine tests: Discussion of test results with performing physician: Decision to obtain old records and/or obtain history from someone other than the patient: Review and summarization of old records and/or obtaining history from someone other than the patient and.or discussion of case with another health care provider: Independent visualization of image, tracing or specimen itself: Time: not applicable Onesimo Bruno MD documented in this encounter Plan of Treatment Upcoming Encounters Date Type Department Care Team (Late st Contact Info) Description 04/04/2023 1:00 PM MAIN LINE ASSEMBLER Virtual Visit [facility] [address] [address] Keke Brooks, RD [address] [facility] [address] [place] [address] documented as of this encounter Procedures Procedure Name Priority Date/Time Associated Diagnosis Comments CBC WITH PLATELETS AND DIFFERENTIAL Routine 08/19/2020 2:58 PM CDT VALPROIC ACID Routine 08/19/2020 2:58 PM CDT HEPATIC FUNCTION PANEL Routine 08/19/2020 2:58 PM CDT EKG 12-LEAD, TRACING ONLY Routine 08/19/2020 documented in this encounter Results * (ABNORMAL) CBC with platelets and differential (08/19/2020 2:58 PM CDT) WBC 8.2 4.0 - 11.0 thou/uL 08/19/2020 3:07 PM CDT [facility] RBC Count 4.45 4.40 - 6.20 mill/uL 08/19/2020 3:07 PM CDT [facility] Hemoglobin 13.8(L) 14.0 - 18.0 g/dL 08/19/2020 3:07 PM CDT [facility] Hematocrit 42.4 40.0 - 54.0 % 08/19/2020 3:07 PM CDT [facility] MCV 95 80 - 100 fL 08/19/2020 3:07 PM CDT [facility] MCH 31.0 27.0 - 34.0 pg 08/19/2020 3:07 PM CDT [facility] MCHC 32.5 32.0 - 36.0 g/dL 08/19/2020 3:07 PM CDT [facility] RDW 14.0 11.0 - 14.5 % 08/19/2020 3:07 PM CDT [facility] Platelet Count 156 140 - 440 thou/uL 08/19/2020 3:07 PM CDT [facility] Mean Platelet Volume 9.4 7.0 - 10.0 fL 08/19/2020 3:07 PM CDT [facility] % Neutrophils 66 50 - 70 % 08/19/2020 3:07 PM CDT [facility] % Lymphocytes 26 20 - 40 % 08/19/2020 3:07 PM CDT [facility] % Monocytes 7 2 - 10 % 08/19/2020 3:07 PM CDT [facility] % Eosinophils 0 0 - 6 % 08/19/2020 3:07 PM CDT [facility] % Basophils 0 0 - 2 % 08/19/2020 3:07 PM CDT [facility] % Immature Granulocytes 0 <=0 % 08/19/2020 3:07 PM CDT [facility] Absolute Neutrophils 5.4 2.0 - 7.7 thou/uL 08/19/2020 3:07 PM CDT [facility] Absolute Lymphocytes 2.2 0.8 - 4.4 thou/uL 08/19/2020 3:07 PM CDT [facility] Absolute Monocytes 0.6 0.0 - 0.9 thou/uL 08/19/2020 3:07 PM CDT [facility] Eosinophils Absolute 0.0 0.0 - 0.4 thou/uL 08/19/2020 3:07 PM CDT [facility] Absolute Basophils 0.0 0.0 - 0.2 thou/uL 08/19/2020 3:07 PM CDT [facility] Absolute Immature Granulocytes 0.0 <=0.0 thou/uL 08/19/2020 3:07 PM CDT [facility] Blood specimen (specimen) Venipuncture / Unknown 08/19/2020 2:58 PM CDT 08/19/2020 2:58 PM CDT Onesimo Bruno MD LAB - BLOOD ORDERABL ES Performing Organization Address City/[facility] Co de Phone Number [facility] [address] [address], [facility] [address] [place] [address] * (ABNORMAL) Valproic acid (08/19/2020 2:58 PM CDT) [facility] Valproic acid 16.0(L) 50.0 - 150.0 ug/mL 08/19/2020 6:21 PM CDT [facility] Comment: Recommended therapeutic trough conc range when used for manic episodes associated with bipolar disorder: 50-125 ug/ml. Blood specimen (specimen) Venipuncture / Unknown 08/19/2020 2:58 PM CDT 08/19/2020 5:30 PM CDT Onesimo Bruno MD LAB - BLOOD ORDERABL ES Performing Organization Address City/[facility]/ZIP Co de Phone Number [facility] [address] [address], [facility] [phone] [facility] [address] [place] [address] * (ABNORMAL) Hepatic function panel (08/19/2020 2:58 PM CDT) [facility] Bilirubin Total 0.4 0.0 - 1.0 mg/dL 08/19/2020 6:09 PM CDT [facility] Bilirubin Direct 0.1 <=0.5 mg/dL 08/19/2020 6:09 PM CDT [facility] Protein Total 5.9(L) 6.0 - 8.0 g/dL 08/19/2020 6:09 PM CDT [facility] Albumin 3.2(L) 3.5 - 5.0 g/dL 08/19/2020 6:09 PM CDT [facility] Alkaline Phosphatase 50 45 - 120 U/L 08/19/2020 6:09 PM CDT [facility] AST 19 0 - 40 U/L 08/19/2020 6:09 PM CDT [facility] ALT 15 0 - 45 U/L 08/19/2020 6:09 PM CDT [facility] Blood specimen (specimen) Venipuncture / Unknown 08/19/2020 2:58 PM CDT 08/19/2020 5:30 PM CDT Onesimo Bruno MD LAB - BLOOD ORDERABL ES [facility] [address] [place] [address], [facility] [phone] [facility] [address] [place] [address] * EKG 12-lead, tracing only (08/19/2020) Systolic Blood Pressure 08/20/2020 1:31 PM CDT [facility] CON[facility] Diastolic Blood Pressure 08/20/2020 1:31 PM CDT [facility] CON[facility] Ventricular Rate 97 BPM 08/21/19 21 1:31 PM CDT [facility] CONVERSION Atrial Rate 97 BPM 08/20/2020 1:31 PM CDT [facility] CONVERSION NM Interval 154 ms 08/20/2020 1:31 PM CDT [facility] CONVERSION QRS Duration 86 ms 08/20/2020 1:31 PM CDT [facility] CONVERSION QT 336 ms 08/20/2020 1:31 PM CDT [facility] CONVERSION QTc 426 ms 08/20/2020 1:31 PM CDT [facility] CARDIOLOGY CONVERSION P Suther[place] 22 degrees 08/20/2020 1:31 PM CDT [facility] CARDIOLOGY CONVERSION R AXIS 54 degrees 08/20/2020 1:31 PM CDT [facility] CARDIOLOGY CONVERSION T S[place] 52 degrees 08/20/2020 1:31 PM CDT [facility] CARDIOLOGY CONVERSION Interpretation ECG Sinus rhythm Normal ECG When compared with ECG of 28-JAN-2019 18:10, No significant change was found Confirmed by FAINA ??MATTIE SALGUERO LOC:JN ([id number]) on 08/20/2020 1:31:56 PM 08/20/2020 1:31 PM CDT [facility] CARDIOLOGY CONVERSION 08/19/2020 08/20/2020 1:3 1 PM CDT Onesimo Bruno MD ECG ORDERABLES [facility] CONVERSION documented in this encounter Visit Diagnoses Diagnosis Atypical pneumonia Pneumonia, organism unspecified NAVAS (dyspnea on exertion) Other dyspnea and respiratory abnormality Wheezing Tachycardia Tachycardia, unspecified Morbid obesity (H) Morbid obesity Other pulmonary embolism without acute cor pulmonale, unspecified chronicity (H) Encounter for therapeutic drug monitoring documented in this encounter Additional Health Concerns Assessment Noted Time PHQ-9 Depression Total Score: 14 022 10:49 AM MAIN LINE ASSEMBLER documented as of this encounter Care Teams Contamination Consultant Relationship Specialty Start Date End Date Onesimo Bruno MD PCP - General 08/11/06 Bhavna Mac, Elio [address] [place] [address] Pharmacist Pharmacist 07/11/18 Isaac Bro, RN Lead Hypoid Gear Tester Primary Care - CC 09/01/18 Ilda Tapia, W Community Health Worker Primary Care - CC 09/01/1804/22 Onesimo Bruno MD [address] [facility] [place] [address] Assigned PCP 07/30/20 Florentino Jackson MD [facility] [address] [facility] [address] [place] [address] Assigned Surgical Provider 08/29/20 09/27/20 Nataliia Gomez MD [address] [facility] [address] [place] [address] Assigned Heart and Vascular Provider 08/29/20 10/08/22 Luly Grant MD [address] [facility] [address] [place], [place] [id number] Assigned Allergy Provider 08/29/20 04/16/22 Rafita Ayers MD [address] [place] [address] Assigned Pulmonology Provider 10/12/20 Flo Henry MD [address] [id number] Assigned Behavioral Health Provider 09/21/20 Susan Robert, ELISA Community Health Worker Primary Care - CC 04/23/2106/15/21 Jana Vick CHW Community Health Worker Primary Care - CC 06/08/21 Tor Joseph DPM [address] [place] [address] [address] [place] [address] Assigned Musculoskeletal Provider 07/05/21 03/19/22 Lorri Larsen MD [address] [place] [address] Otolaryngology 07/21/21 Lorri Larsen MD [address] [place] [address] Assigned Surgical Provider 10/10/21 Rafita Ayers MD [address] [place] [address] Critical Care 11/30/21 Kaelyn New AuD [address] [place] [address] Manager Of Product Audiology 12/09/21 Marino Hayes MD [address] [place] [address] Cardiovascular Disease 09/28/22 Marino Hayes MD [address] [place] [address] Assigned Heart and Vascular Provider 10/09/22 documented as of this encounter
--- OUTSIDE RECORDS SUMMARY | 2023-02-27 14:33 | XMS_ITS | Encounter Summary ---
Author Name Unknown Organization [place] Address [address] [place] [address] Care Team Providers Care Mold Setter Name Role Phone Onesimo Bruno MD Primary Care Provider [phone] Bhavna Mac PharmD Unavailable [phone] Isaac Bro RN Unavailable Unavailable Ilda Tapia CHW Unavailable +[phone] Onesimo Bruno MD Unavailable [phone] Manuel Calderon MD, Jon Unavailable +[phone] Nataliia Gomez MD Unavailable Luly Grant MD Unavailable +[phone] Rafita Ayers MD Unavailable +[phone] Flo Henry MD Unavailable +[phone] Susan Robert CHW Unavailable Unavailable Jana Vick CHW Unavailable UnavailTor Brown DPM Unavailable +[phone] Lorri Larsen MD Unavailable +[phone] Lorri Larsen MD Unavailable +[phone] Rafita Ayers MD Unavailable +[phone] Kaelyn New Unavailable +[phone] Marino Hayes MD Unavailable +[phone] Marino Hayes MD Unavailable + [phone] Reason for Visit * Reason Comments Clinic Care Coordination - Follow-up Encounter Details Date Type Department Care Team (Latest Contact Info) Description 08/06/2020 Communication - [facility] [address] [place] [address] Isaac Bro, RN Clinic Care Coordination - Follow-up Social History Tobacco Use Types Packs/Day Years Used Date Smoking Tobacco: Never Assessed PHQ-2 Answer Date Recorded PHQ-2 Score 3 07/31/2020 Sex and Gender Information Value Date Recorded Sex Assigned at Male 05/09/2020 12:49 AM CDT Gender Identity Male 05/09/2020 12:49 AM CDT Sexual Orientation Garcia 09/17/2020 11 :45 PM CDT documented as of this encounter Progress Notes * Isaac Bro RN - 08/06/2020 12:01 PM CDT Clinic Care Coordination Contact Follow Up Progress Note Assessment: Spoke with patient and his Cordell today to follow up on goal, assist with scheduling appointments and to discuss any needs or concerns. Provided Cordell with telephone number for [facility] to schedule patient's CT colonoscopy. Vanstone Machine Operator also provided patient with the phone number to [facility] to schedule patient's follow up appointment. Cordell said she felt comfortable scheduling these appointments on his own, but has CCC RN phone number if he runs into any difficulties. Discussed referral for psychiatric follow up. Dr. Henry is taking new patients, but does not have an opening until the end of November. Patient said he would like to see someone before November. Contacted [facility] and learned that Dr. JOHN Ji is not taking new patients at this time and Dr. Trevor Drummond is not longer practicing at [facility]. Patient was informed of this. Patient and Cordell were provided with the phone number for [facility] scheduling as there are other psychiatrists there who are taking new patients. Patient said he continues to have persistent cough and fatigue. No other symptoms. He reported he has been sleeping a great deal during the day and feeling, run down. Patient agreed to go the Urgent Care near their home to be evaluated. No other needs or concerns at this time. Goals addressed this encounter: Goals Addressed This Visit's Progress Patient Stated ??? Healthy Eating (pt-stated) Goal Statement: I would like to go back on a weight reducing program in the next 6 months. Date Goal set: 11/06/19 Barriers: Patient reported increase in weight. Strengths: Strong advocate for himself. Support . Date to Achieve By: 05/06/19* Patient expressed understanding of goal: Yes Action steps to achieve this goal: 1. I will ask for new order to weigh management clinic/non surgical bariatric clinic. 2. I will start to exercise on a regular basis. 3. I will monitor my portion sizes at meals. 4. I will report progress towards this goal at outreach telephone calls from the CCC team. Discussed: 05/26/20 Discussed on Discussed on 08/06/20 - Continues to work with the weight loss Clinic in [facility]. Intervention/Education provided during outreach: Discussed the importance of taking his medicationsdaily as directed. Encouraged patient to be evaluated at Urgent Care related to ongoing persistent cough and fatigue. Outreach Frequency: monthly Plan: CCC RN will continue to monitor, support patient with current goal and will be available to assist as nursing needs arise. Oil Filters Inspector will follow up in two weeks. documented in this encounter Plan of Treatment Upcoming Encounters Date Type Department Care Team (Late Contact Info) Description 04/04/2023 1:00 PM CANDLEMAKER Virtual Visit [facility] and B[facility] Care [address] 200 [place] [phone] Keke Brooks, RD [address] [place] [address] 84 [place] [address] documented as of this encounter Visit Diagnoses Not on filedocumented in this encounter Additional Health Concerns Assessment Noted Time PHQ-9 Depression Total Score: 14 022 10:49 AM CANDLEMAKER documented as of this encounter Care Teams Mold Setter Relationship Specialty Start Date End Date Onesimo Bruno MD PCP - General 08/11/06 Bhavna Mac, PharmD 870 [place] [address] Pharmacist Pharmacist 07/11/18 Isaac Bro, RN Lead Oil Filters Inspector Primary Care - CC 09/01/18 Ilda Tapia CHW Community Health Worker Primary Care - CC 09/01/1804/22 Onesimo Bruno MD 1390 [place] [address] Assigned PCP 07/30/20 Florentino Jackson MD [facility] [address] [place] [address] 602 [place] [address] Assigned Surgical Provider 08/29/20 09/27/20 Nataliia Gomez MD [address] [facility], [address] [place] [address] Assigned Heart and Vascular Provider 08/29/20 10/08/22 Luly Grant MD [address] [facility] [address] [place] [address] Assigned Allergy Provider 08/29/20 04/16/22 Rafita Ayers MD 909 [place] [address] Assigned Pulmonology Provider 10/12/20 Flo Henry MD 1875 [facility] [address] [place] [address] Assigned Behavioral Health Provider 09/21/20 Susan Robert CHW Community Health Worker Primary Care - CC 04/23/2106/15/21 Jana Vick, [facility] Community Health Worker Primary Care - CC 06/08/21 Tor Joseph DPM [facility]5 [facility] [address] [place] [address] Assigned Musculoskeletal Provider 07/05/21 03/19/22 Lorri Larsen MD [address] [place] [address] Otolaryngology 07/21/21 Lorri Larsen MD [address] [place] [address] Assigned Surgical Provider 10/10/21 Rafita Ayers MD [address] [place] [address] Critical Care 11/30/21 Kaelyn New, Shen[place] [address] [place] [address] Phone Triage Specialist Audiology 12/09/21 Marino Hayes MD [address] [place] [address] Cardiovascular Disease 09/28/22 Marino Hayes MD [address] [place] [address] Assigned Heart and Vascular Provider 10/09/22 documented as of this encounter
--- OUTSIDE RECORDS SUMMARY | 2023-02-27 14:33 | XMS_ITS | Encounter Summary ---
Author Name Unknown Organization [place] Address [address] [place] [address] Care Team Providers Care Hunter Trapper Name Role Phone Onesimo Bruno MD Primary Care Provider [phone] Bhavna Mac PharmD Unavailable [phone] Isaac Bro RN Unavailable Unavailable Ilda Tapia CHW Unavailable +[phone] Onesimo Bruno MD Unavailable [phone] Manuel Calderon MD, Jon Unavailable [phone] Nataliia Gomez MD Unavailable Luly Grant MD Unavailable +[phone] Rafita Ayers MD Unavailable +[phone] Flo Henry MD Unavailable +[phone] Susan Robert CHW Unavailable Unavailable Jana Vick CHW Unavailable UnavailTor Brown DPM Unavailable +[phone] Lorri Larsen MD Unavailable +[phone] Lorri Larsen MD Unavailable +[phone] Rafita Ayers MD Unavailable +[phone] Kaelyn New Unavailable +[phone] Marino Hayes MD Unavailable +[phone] Marino Hayes MD Unavailable + [phone] Encounter Details Date Type Department Care Team (Late st Contact Info) Description 09/13/2019 Records - [facility] CONVERSION Scan, Non-Provider [...] Contact Info) Description 04/04/2023 1:00 PM MANAGER METROLOGY Virtual Visit [facility] and B[facility]rics Care [address] 200 [place] [phone] Keke Brooks, RD 420 [facility] 84 [place] [address] documented as of this encounter Visit Diagnoses Not on filedocumented in this encounter Additional Health Concerns Assessment Noted Time PHQ-9 Depression Total Score: 7 03/03/19 22 10:04 AM MANAGER METROLOGY documented as of this encounter Care Teams Hunter Trapper Relationship Specialty Start Date End Date Onesimo Bruno MD PCP - General 08/11/06 Bhavna Mac PharmD 870 [place] [address] Pharmacist Pharmacist 07/11/18 Isaac Bro, RN Lead Internet Ecommerce Specialist Primary Care - CC 09/01/18 Ilda Tapia W Community Health Worker Primary Care - CC 09/01/1804/22 Onesimo Bruno MD 1390 [place] [address] Assigned PCP 07/30/20 Florentino Jackson MD [facility] 347 [facility] 602 [place] [address] Assigned Surgical Provider 08/29/20 09/27/20 Nataliia Gomez MD 1600 [facility], [address] [place] [address] Assigned Heart and Vascular Provider 08/29/20 10/08/22 [place] [address] [place] [address] [address] [place] [address] Assigned Allergy Provider 08/29/20 04/16/22 Rafita Ayers MD [address] [place] [address] Assigned Pulmonology Provider 10/12/20 Flo Henry MD 1875 [facility] 250 [place] [address] Assigned Behavioral Health Provider 09/21/20 Susan Robert CHW Community Health Worker Primary Care - CC 04/23/2106/15/21 Jana Vick CHW Community Health Worker Primary Care - CC 06/08/21 Tor Joseph DPM 2945 [facility] [address] [place] [address] Assigned Musculoskeletal Provider 07/05/21 03/19/22 Lorri Larsen MD [address] [place] [address] Otolaryngology 07/21/21 Lorri Larsen MD 9 [place] [address] Assigned Surgical Provider 10/10/21 Rafita Ayers MD [address] [place] [address] Critical Care 11/30/21 Kaelyn New, Shena [address] [place] [address] Grain Combine Driver Audiology 12/09/21 Marino Hayes MD [address] [place] [address] Cardiovascular Disease 09/28/22 Marino Hayes MD [address] [place] [address] Assigned Heart and Vascular Provider 10/09/22 documented as of this encounter
--- OUTSIDE RECORDS SUMMARY | 2023-02-27 14:33 | XMS_ITS | Encounter Summary ---
Author Name Unknown Organization [facility] Address [address] [place] [address] Care Team Providers Care Salesperson Pets And Pet Supplies Name Role Phone Onesimo Bruno MD Primary Care Provider [phone] Bhavna Mac PharmD Unavailable [phone] Isaac Bro RN Unavailable Unavailable Ilda Tapia CHW Unavailable +[phone] Onesimo Bruno MD Unavailable [phone] Manuel Calderon MD, Jon Unavailable [phone] Nataliia Gomez MD Unavailable Luly Grant MD Unavailable +[phone] Rafita Ayers MD Unavailable +[phone] Flo Henry MD Unavailable +[phone] Susan Robert CHW Unavailable Unavailable Jana Vick CHW Unavailable UnavailTor Brown DPM Unavailable +[phone] Lorri Larsen MD Unavailable [phone] Lorri Larsen MD Unavailable +[phone] Rafita Ayers MD Unavailable +[phone] Kaelyn New Unavailable +[phone] Marino Hayes MD Unavailable +[phone] Marino Hayes MD Unavailable + [phone] Reason for Visit * Reason Comments Clinic Care Coordination - Follow-up Encounter Details Date Type Department Care Team (Latest Contact Info) Description 08/14/2020 Communication - [facility] [address] [facility] [place] [phone] Ilda Tapia CHW Clinic Care Coordination - Follow-up Social History [...] as of this encounter Progress Notes * Ilda Kaye - 08/14/2020 8:26 AM CDT Progress Notes by Ilda Kaye CHW at 08/14/2020 8:26 AM Author: Ilda Kaye CHW Service: -- Author Type: Community Health Worker Filed: 08/21/2020 9:16 AM Encounter Date: 08/14/2020 Status: Signed Household Personal Assistant: Ilda Kaye CHW (Community Health Worker) Patient spoke with CCC RN on 08/06/20 and discussed goals. CCC RN will follow up in 2 weeks CHW delegations: None Next outreach due: 09/05/20 documented in this encounter Plan of Treatment Upcoming Encounters Date Type Department Care Team (Late st Contact Info) Description 04/04/2023 1:00 PM PEDIATRIC PSYCHIATRIST Virtual Visit [facility] Surgery Clinic and Bariatrics Care [address] 200 [place] [phone] Keke Brooks, RD 420 [facility] 84 [place] [address] documented as of this encounter Visit Diagnoses Not on filedocumented in this encounter Additional Health Concerns Assessment Noted Time PHQ-9 Depression Total Score: 14 022 10:49 AM PEDIATRIC PSYCHIATRIST documented as of this encounter Care Teams Salesperson Pets And Pet Supplies Relationship Specialty Start Date End Date Onesimo Bruno MD PCP - General 08/11/06 Bhavna Mac, PharmD 870 [place], [place] [phone] Pharmacist Pharmacist 07/11/18 Isaac Bro, RN Lead Environmental Health And Safety Leader Primary Care - CC 09/01/18 Ilda Tapia [facility] Community Health Worker Primary Care - CC 09/01/1804/22 Onesimo Bruno MD 1390 [facility] [place] [address] Assigned PCP 07/30/20 Florentino Jackson MD [facility] 347 [facility] 602 [place] [address] Assigned Surgical Provider 08/29/20 09/27/20 Nataliia Gomez MD 1600 [facility], [address] [place], [place] [address] Assigned Heart and Vascular Provider 08/29/20 10/08/22 Luly Grant MD 1655 [facility] [address] [place] [address] Assigned Allergy Provider 08/29/20 04/16/22 Rafita Ayers MD [address] [place] [address] Assigned Pulmonology Provider 10/12/20 Flo Henry MD [address] [address] Assigned Behavioral Health Provider 09/21/20 Susan Robert, W Community Health Worker Primary Care - CC 04/23/2106/15/21 Jana Vick, W Community Health Worker Primary Care - CC 06/08/21 Tor Joseph DPM [address] [place] [address] Assigned Musculoskeletal Provider 07/05/21 03/19/22 Lorri Larsen MD [address] [place] [address] Otolaryngology 07/21/21 Lorri Larsen MD [address] [place] [address] Assigned Surgical Provider 10/10/21 Rafita Ayers MD [address] [place] [address] Critical Care 11/30/21 Kaelyn New AuD 1825 [place] [address] Construction Supervisor Audiology 12/09/21 Marino Hayes MD [address] [place] [address] Cardiovascular Disease 09/28/22 Marino Hayes MD 516 [place], [place] [address] Assigned Heart and Vascular Provider 10/09/22 documented as of this encounter
--- OUTSIDE RECORDS SUMMARY | 2023-02-27 14:33 | XMS_ITS | Encounter Summary ---
Author Name Unknown Organization [place] Address [address] [place] [address] Care Team Providers Care Scrap Metal Burner Name Role Phone Onesimo Bruno MD Primary Care Provider [phone] Bhavna Mac PharmD Unavailable [phone] Isaac Bro RN Unavailable Unavailable Ilda Tapia CHW Unavailable +[phone] Onesimo Bruno MD Unavailable [phone] Manuel Calderon MD, Jon Unavailable [phone] Nataliia Gomez MD Unavailable Luly Grant MD Unavailable +[phone] Rafita Ayers MD Unavailable +[phone] Flo Henry MD Unavailable +[phone] Susan Robert CHW Unavailable Unavailable Jana Vick CHW Unavailable UnavailTor Brown DPM Unavailable +[phone] Lorri Larsen MD Unavailable +[phone] Lorri Larsen MD Unavailable +[phone] Rafita Ayers MD Unavailable +[phone] Kaelyn New Unavailable +[phone] Marino Hayes MD Unavailable +[phone] Marino Hayes MD Unavailable + [phone] Encounter Details Date Type Department Care Team (Late st Contact Info) Description 03/17/2020 Records - [facility] CONVERSION Scan, Non-Provider [...] st Contact Info) Description 04/04/2023 1:00 PM BOTTOM STEEP TENDER Virtual Visit [facility] Surgery Clinic and Bariatrics Care [address] 200 [place] [address] Keke Brooks, RD 420 [facility] 84 [place] [address] documented as of this encounter Visit Diagnoses Not on filedocumented in this encounter Additional Health Concerns Assessment Noted Time PHQ-9 Depression Total Score: 3 03/03/19 22 9:49 AM BOTTOM STEEP TENDER documented as of this encounter Care Teams Scrap Metal Burner Relationship Specialty Start Date End Date Onesimo Bruno MD PCP - General 08/11/06 Bhavna Mac, GenesisD 870 [place] [address] Pharmacist Pharmacist 07/11/18 Isaac Bro, RN Lead Strainer Mill Operator Primary Care - CC 09/01/18 Ilda Tapia CHW Community Health Worker Primary Care - CC 09/01/1804/22 Onesimo Bruno MD 1390 [place] [address] Assigned PCP 07/30/20 Florentino Jackson MD [facility] 347 [facility] N [facility] 602 [place] [address] Assigned Surgical Provider 08/29/20 09/27/20 Nataliia Gomez MD 1600 [facility], [address] [place] [address] Assigned Heart and Vascular Provider 08/29/20 10/08/22 Luly Grant MD 1655 [facility] [address] [place] [address] Assigned Allergy Provider 08/29/20 04/16/22 Rafita Ayers MD [address] [place] [address]89[address] Assigned Pulmonology Provider 10/12/20 Flo Henry MD 1875 [facility] [address] [place], [place] [address] Assigned Behavioral Health Provider 09/21/20 Susan Robert CHW Community Health Worker Primary Care - CC 04/23/2106/15/21 Jana Vick CHW Community Health Worker Primary Care - CC 06/08/21 Tor Joseph DPM 2945 [facility] [address] [place] [address] Assigned Musculoskeletal Provider 07/05/21 03/19/22 Lorri Larsen MD [address] [place] [address] Otolaryngology 07/21/21 Lorri Larsen MD 9 [place] [address] Assigned Surgical Provider 10/10/21 Rafita Ayers MD [address] [place] [address] Critical Care 11/30/21 Kaelyn New AuD [address] [place] [address] Melting Furnace Skimmer Audiology 12/09/21 Marino Hayes MD [address] [place] [address] Cardiovascular Disease 09/28/22 Marino Hayes MD [address] [place] [address] Assigned Heart and Vascular Provider 10/09/22 documented as of this encounter
--- OUTSIDE RECORDS SUMMARY | 2023-02-27 14:33 | XMS_ITS | Encounter Summary ---
Author Name Unknown Organization [place] Address [address] [place] [address] Care Team Providers Care Office Clerk Routine Name Role Phone Onesimo Bruno MD Primary Care Provider [phone] Bhavna Mac PharmD Unavailable [phone] Isaac Bro RN Unavailable Unavailable Ilda Tapia CHW Unavailable +[phone] Onesimo Bruno MD Unavailable [phone] Manuel Calderon MD, Jon Unavailable [phone] Nataliia Gomez MD Unavailable Luly Grant MD Unavailable +[phone] Rafita Ayers MD Unavailable +[phone] lFo Henry MD Unavailable +[phone] Susan Robert CHW Unavailable Unavailable Jana Vick CHW Unavailable UnavailTor Brown DPM Unavailable +[phone] Lorri Larsen MD Unavailable +[phone] Lorri Larsen MD Unavailable +[phone] Rafita Ayers MD Unavailable +[phone] Kaelyn New Unavailable +[phone] Marino Hayes MD Unavailable +[phone] Marino Hayes MD Unavailable + [phone] Encounter Details Date Type Department Care Team (Late st Contact Info) Description 05/19/2020 Records - [facility] HE CONVERSION Scan, Non-Provider [...] st Contact Info) Description 04/04/2023 1:00 PM BEEF CATTLE SPECIALIST Virtual Visit [facility] Surgery Clinic and Bariatrics Care [address] 200 [place] [address] Keke Brooks, RD 420 [facility] 84 [place] [address] documented as of this encounter Visit Diagnoses Not on filedocumented in this encounter Additional Health Concerns Assessment Noted Time PHQ-9 Depression Total Score: 11 022 10:44 AM BEEF CATTLE SPECIALIST documented as of this encounter Care Teams Office Clerk Routine Relationship Specialty Start Date End Date Onesimo Bruno MD PCP - General 08/11/06 Bhavna Mac, GenesisD 870 [place] [address] Pharmacist Pharmacist 07/11/18 Isaac Bro, RN Lead Repair Table Operator Primary Care - CC 09/01/18 Ilda Tapia CHW Community Health Worker Primary Care - CC 09/01/1804/22 Onesimo Bruno MD 1390 [place] [address] Assigned PCP 07/30/20 Florentino Jackson MD [facility] 347 [facility] N [facility] 602 [place] [address] Assigned Surgical Provider 08/29/20 09/27/20 Nataliia Gomez MD 1600 [facility], [address] [place] [address] Assigned Heart and Vascular Provider 08/29/20 10/08/22 Luly Grant MD 1655 [facility] [address] [place] [address] Assigned Allergy Provider 08/29/20 04/16/22 Rafita Ayers MD [address] [place] [address] Assigned Pulmonology Provider 10/12/20 Flo Henry MD 1875 [facility] [address] [place], [place] [address] Assigned Behavioral Health Provider 09/21/20 Susan Robert CHW Community Health Worker Primary Care - CC 04/23/2106/15/21 Jana Vick CHW Community Health Worker Primary Care - CC 06/08/21 Tor Joseph DPM 2945 [facility] [address] [place] [address] Assigned Musculoskeletal Provider 07/05/21 03/19/22 Lorri Larsen MD [address] [place] [address] Otolaryngology 07/21/21 Lorri Larsen MD 9 [place] [address] Assigned Surgical Provider 10/10/21 Rafita Ayers MD [address] [place] [address] Critical Care 11/30/21 Kaelyn New AuD [address] [place] [address] Ems Instructor Audiology 12/09/21 Marino Hayes MD [address] [place] [address] Cardiovascular Disease 09/28/22 Marino Hayes MD [address] [place] [address] Assigned Heart and Vascular Provider 10/09/22 documented as of this encounter
--- OUTSIDE RECORDS SUMMARY | 2023-02-27 14:33 | XMS_ITS | Encounter Summary ---
Author Name Unknown Organization [facility] Address [address] [place] [address] Care Team Providers Care Semiconductor Testing Group Leader Name Role Phone Onesimo Bruno MD Primary Care Provider [phone] Bhavna Mac PharmD Unavailable +[phone] Isaac Bro RN Unavailable Unavailable Ilda Tapia CHW Unavailable +[phone] Onesimo Bruno MD Unavailable +[phone] Manuel Calderon MD, Jon Unavailable +[phone] Nataliia Gomez MD Unavailable Luly Grant MD Unavailable +[phone] Rafita Ayers MD Unavailable +[phone] Flo Henry MD Unavailable +[phone] Susan Robert CHW Unavailable Unavailable Jana Vick CHW Unavailable UnavailTor Brown DPM Unavailable +[phone] Lorri Larsen MD Unavailable +[phone] Lorri Larsen MD Unavailable +[phone] Rafita Ayers MD Unavailable +[phone] Kaelyn New Unavailable +[phone] Marino Hayes MD Unavailable +[phone] Marino Hayes MD Unavailable + [phone] Encounter Details Date Type Department Care Team (Late st Contact Info) Description 07/24/2018 Records - [facility] HE CONVERSION Scan, Non-Provider [...] st Contact Info) Description 04/04/2023 1:00 PM PLUG CUTTER Virtual Visit [facility] [address] 200 [place] [phone] Keke Brooks, RD 420 [facility] 84 [place] [address] documented as of this encounter Visit Diagnoses Not on filedocumented in this encounter Additional Health Concerns Assessment Noted Time PHQ-9 Depression Total Score: 8 06/21/19 19 2:31 PM CDT documented as of this encounter Care Teams Semiconductor Testing Group Leader Relationship Specialty Start Date End Date Onesimo Bruno MD PCP - General 08/11/06 Bhavna Mac PharmD 870 [place] [address] Pharmacist Pharmacist 07/11/18 Isaac Bro, RN Lead Rigger Up Primary Care - CC 09/01/18 Ilda Tapia CHVaibhav Community Health Worker Primary Care - CC 09/01/1804/22 Onesimo Bruno MD 1390 [place] [address] Assigned PCP 07/30/20 Florentino Jackson MD [facility] 347 [facility] N [facility] 602 [place] [address] Assigned Surgical Provider 08/29/20 09/27/20 Nataliia Gomez MD 1600 [facility], [address] [place] [address] Assigned Heart and Vascular Provider 08/29/20 10/08/22 Luly Grant MD 1655 [facility] [address] [place] [address] Assigned Allergy Provider 08/29/20 04/16/22 Rafita Ayers MD [address] [place] [address] 15[address]95 Assigned Pulmonology Provider 10/12/20 Flo Henry MD 1875 [facility] [address] 250 [place], [place] [address] Assigned Behavioral Health Provider 09/21/20 Susan Robert CHW Community Health Worker Primary Care - CC 04/23/2106/15/21 Jana Vick CHW Community Health Worker Primary Care - CC 06/08/21 Tor Joseph DPM 2945 [facility] [address] [place] [address] Assigned Musculoskeletal Provider 07/05/21 03/19/22 Lorri Larsen MD [address] [place] [address] Otolaryngology 07/21/21 Lorri Larsen MD 9 [place] [address] Assigned Surgical Provider 10/10/21 Rafita Ayers MD [address] [place] [address] Critical Care 11/30/21 Kaelyn New AuD [address] [place] [address] Brickmason Supervisor Audiology 12/09/21 Marino Hayes MD [address] [place] [address] Cardiovascular Disease 09/28/22 Marino Hayes MD [address] [place] [address] Assigned Heart and Vascular Provider 10/09/22 documented as of this encounter
--- OUTSIDE RECORDS SUMMARY | 2023-02-27 14:33 | XMS_ITS | Encounter Summary ---
Author Name Unknown Organization [facility] Address [address] [place] [address] Care Team Providers Care Bottom Buffer Name Role Phone Onesimo Bruno MD Primary Care Provider [phone] Bhavna Mac PharmD Unavailable +[phone] Isaac Bro RN Unavailable Unavailable Ilda Tapia CHW Unavailable +[phone] Onesimo Bruno MD Unavailable +[phone] Manuel Calderon MD, Jon Unavailable +[phone] Nataliia Gomez MD Unavailable Luly Grant MD Unavailable +[phone] Rafita Ayers MD Unavailable +[phone] Flo Henry MD Unavailable +[phone] Susan Robert CHW Unavailable Unavailable Jana Vick CHW Unavailable UnavailTor Brown DPM Unavailable +[phone] Lorri Larsen MD Unavailable +[phone] Lorri Larsen MD Unavailable +[phone] Rafita Ayers MD Unavailable +[phone] Kaelyn New Unavailable +[phone] Marino Hayes MD Unavailable +[phone] Marino Hayes MD Unavailable + [phone] Encounter Details Date Type Department Care Team (Late st Contact Info) Description 07/15/2020 External Order Results [facility] 420 [place] [address] Outside, Provider Social History Tobacco Use Types Packs/Day Years Used Date Smoking Tobacco: Never Assessed PHQ-2 Answer Date Recorded PHQ-2 Score 2 07/10/2020 Sex and Gender Information Value Date Recorded Sex Assigned at Male 05/09/2020 12:49 AM CDT Gender Identity Male 05/09/2020 12:49 AM CDT Sexual Orientation Garcia 09/17/2020 11 :45 PM CDT documented as of this encounter Plan of Treatment Upcoming Encounters Date Type Department Care Team (Late st Contact Info) Description 04/04/2023 1:00 PM CHECK AIRMAN Virtual Visit [facility] and B[facility]rics Care [address] 200 [place] [phone] Keke Brooks, RD 420 [facility] 84 [place], [place] [address] documented as of this encounter Procedures Procedure Name Priority Date/Time Associated Diagnosis Comments COVID-19 VIRUS (CORONAVIRUS) BY PCR (EXTERNAL RESULT) Routine 08/13/2020 12:00 AM CDT documented in this encounter Results * COVID-19 Virus (Coronavirus) by PCR (External Result) (08/13/2020 12:00 AM CDT) COVID-19 Virus by PCR (External Result) NEG COVID-19 EXTERNAL RESULTS 08/13/2020 Narrative TIKA PFT - 08/13/2020 12:00 AM CDT Verified by Sandeep Nation on 09/10/2020. [facility] [address] [facility] * [place] [address] Verified by Sandeep Nation on 09/10/2020. Patient Reported LABORATORY TIKA PFT COVID-19 EXTERNAL RESULTS COVID-19 External Result Scanned into Patient Record by [employer] Refer to Result Comment/Narrative for exact performing laboratory [address] documented in this encounter Visit Diagnoses Not on filedocumented in this encounter Additional Health Concerns Assessment Noted Time PHQ-9 Depression Total Score: 11 022 10:44 AM CHECK AIRMAN documented as of this encounter Care Teams Bottom Buffer Relationship Specialty Start Date End Date Onesimo Bruno MD PCP - General 08/11/06 Bhavna Mac, GenesisD 870 [place] [address] Pharmacist Pharmacist 07/11/18 Isaac Bro, RN Lead Creative Engagement Director Primary Care - CC 09/01/18 Ilda Tapia [facility] Community Health Worker Primary Care - CC 09/01/1804/22 Onesimo Bruno MD 1390 [facility] [address] Assigned PCP 07/30/20 Florentino Jackson MD [facility] 347 [facility] N [facility] 602 [place] [address] Assigned Surgical Provider 08/29/20 09/27/20 Nataliia Gomez MD 1600 [facility], [address] [place], [place] [address] Assigned Heart and Vascular Provider 08/29/20 10/08/22 Luly Grant MD [address] [facility] [address] [place] [address] Assigned Allergy Provider 08/29/20 04/16/22 Rafita Ayers MD [address] [place] [address] Assigned Pulmonology Provider 10/12/20 Flo Henry MD [address] [address] Assigned Behavioral Health Provider 09/21/20 Susan Robert, W Community Health Worker Primary Care - CC 04/23/2106/15/21 Jana Vick W Community Health Worker Primary Care - CC 06/08/21 Tor Joseph DPM [address] [place] [address] Assigned Musculoskeletal Provider 07/05/21 03/19/22 Lorri Larsen MD [address] [place] [address] Otolaryngology 07/21/21 Lorri Larsen MD [address] [place] [address] Assigned Surgical Provider 10/10/21 Rafita Ayers MD [address] [place] [address]268 Critical Care 11/30/21 Kaelyn New AuD 1825 [place] [address] Kiln Head House Operator Audiology 12/09/21 Marino Hayes MD [address] [place] [address] Cardiovascular Disease 09/28/22 Marino Hayes MD [address] [place], [place] [address] Assigned Heart and Vascular Provider 10/09/22 documented as of this encounter
--- OUTSIDE RECORDS SUMMARY | 2023-02-27 14:33 | XMS_ITS | Encounter Summary ---
Author Name Unknown Organization [facility] Address [address] [place] [address] Care Team Providers Care Crystal Inspector Name Role Phone Onesimo Bruno MD Primary Care Provider [phone] Bhavna Mac PharmD Unavailable +[phone] Isaac Bro RN Unavailable Unavailable Ilda Tapia CHW Unavailable +[phone] Onesimo Bruno MD Unavailable [phone] Manuel Calderon MD, Jon Unavailable +[phone] Nataliia Goemz MD Unavailable Luly Grant MD Unavailable +[phone] Rafita Ayers MD Unavailable +[phone] Flo Henry MD Unavailable +[phone] Susan Robert CHW Unavailable Unavailable Jana Vick CHW Unavailable UnavailTor Brown DPM Unavailable +[phone] Lorri Larsen MD Unavailable +[phone] Lorri Larsen MD Unavailable +[phone] Rafita Ayers MD Unavailable +[phone] Kaelyn New Unavailable +[phone] Marino Hayes MD Unavailable +[phone] Marino Hayes MD Unavailable + [phone] Reason for Visit * Reason Comments Clinic Care Coordination - Follow-up Encounter Details Date Type Department Care Team (Latest Contact Info) Description 08/01/2020 Communication - [facility] 1390 [place] [address] Ilda Tapia CHW Clinic Care Coordination - [...] encounter Progress Notes * Ilda Kaye - 08/01/2020 11:06 AM CDT Patient spoke with CCC RN on 07/17 and discussed goals CHW delegations: CHW will continue to support patient with goals through routine scheduled outreach. Next outreach due: 08/14/20 documented in this encounter Plan of Treatment Upcoming Encounters Date Type Department Care Team (Late st Contact Info) Description 04/04/2023 1:00 PM THERMOSTAT MECHANIC Virtual Visit [facility] Surgery Clinic and Bariatrics Care [address] 200 [place] [phone] Keke Brooks, RD 420 [facility] 84 [place], [place] [address] documented as of this encounter Visit Diagnoses Not on filedocumented in this encounter Additional Health Concerns Assessment Noted Time PHQ-9 Depression Total Score: 14 022 10:49 AM THERMOSTAT MECHANIC documented as of this encounter Care Teams Crystal Inspector Relationship Specialty Start Date End Date Onesimo Bruno MD PCP - General 08/11/06 Bhavna Mac, GenesisD 870 [place] [address] Pharmacist Pharmacist 07/11/18 Isaac Bro, RN Lead Rn Field Primary Care - CC 09/01/18 Ilda Tapia [facility] Community Health Worker Primary Care - CC 09/01/1804/22 Onesimo Bruno MD 1390 [facility] [place] [address] Assigned PCP 07/30/20 Florentino Jackson MD [facility] [address] [place] [address] 602 [place] [address] Assigned Surgical Provider 08/29/20 09/27/20 Nataliia Gomez MD 1600 [facility], [address] [place], [place] [address] Assigned Heart and Vascular Provider 08/29/20 10/08/22 Luly Grant MD 1655 [facility] [address] [place], [place] [address] Assigned Allergy Provider 08/29/20 04/16/22 Rafita Ayers MD 909 [place], [place] [address] Assigned Pulmonology Provider 10/12/20 Flo Henry MD 1875 [facility] [address] [place] [address] Assigned Behavioral Health Provider 09/21/20 Susan Robert, Vaibhav Community Health Worker Primary Care - CC 04/23/2106/15/21 Jana Vick W Community Health Worker Primary Care - CC 06/08/21 Tor Joseph DPM 2945 [facility] [address] [place] [address] Assigned Musculoskeletal Provider 07/05/21 03/19/22 Lorri Larsen MD [address] [place] [address] Otolaryngology 07/21/21 Lorri Larsen MD [address] [place] [address] Assigned Surgical Provider 10/10/21 Rafita Ayers MD [address] [place] [address] Critical Care 11/30/21 Kaelyn New, Shena [address] [place] [address] Engineer And Geologist Audiology 12/09/21 Marino Hayes MD [address] [place] [address] Cardiovascular Disease 09/28/22 Marino Hayes MD [address] [place] [address] Assigned Heart and Vascular Provider 10/09/22 documented as of this encounter
--- OUTSIDE RECORDS SUMMARY | 2023-02-27 14:33 | XMS_ITS | Encounter Summary ---
Author Name Unknown Organization [facility] Address [address] [place] [address] Care Team Providers Care Case Planner Name Role Phone Onesimo Bruno MD Primary Care Provider [phone] Bhavna Mac PharmD Unavailable +[phone] Isaac Bro RN Unavailable Unavailable Ilda Tapia CHW Unavailable +[phone] Onesimo Bruno MD Unavailable [phone] Manuel Calderon MD, Jon Unavailable +[phone] Nataliia Gomez MD Unavailable Luly Grant MD Unavailable +[phone] Rafita Ayers MD Unavailable +[phone] Flo Henry MD Unavailable +[phone] Susan Robert CHW Unavailable Unavailable Jana Vick CHW Unavailable UnavailTor Brown DPM Unavailable +[phone] Lorri Larsen MD Unavailable +[phone] Lorri Larsen MD Unavailable +[phone] Rafita Ayers MD Unavailable +[phone] Kaelyn New Unavailable +[phone] Marino Hayes MD Unavailable +[phone] Marino Hayes MD Unavailable + [phone] Encounter Details Date Type Department Care Team (Late st Contact Info) Description 08/03/2018 Records - [facility] HE CONVERSION Scan, Non-Provider [...] Contact Info) Description 04/04/2023 1:00 PM RECREATION TECHNICIAN Virtual Visit [facility] and B[facility]rics Care [address] 200 [place] [phone] Keke Brooks, RD 420 [facility] 84 [place] [address] documented as of this encounter Visit Diagnoses Not on filedocumented in this encounter Additional Health Concerns Assessment Noted Time PHQ-9 Depression Total Score: 8 06/21/19 19 2:31 PM CDT documented as of this encounter Care Teams Case Planner Relationship Specialty Start Date End Date Onesimo Bruno MD PCP - General 08/11/06 Bhavna Mac PharmD 870 [place], [place] Pharmacist Pharmacist 07/11/18 Isaac Bro, RN Lead Product Lead Primary Care - CC 09/01/18 Ilda Tapia CHVaibhav Community Health Worker Primary Care - CC 09/01/1804/22 Onesimo Bruno MD 1390 [place] [address] Assigned PCP 07/30/20 Florentino Jackson MD [facility] 347 [facility] N [facility] 602 [place] [address] Assigned Surgical Provider 08/29/20 09/27/20 Nataliia Gomez MD 1600 [facility], [address] [place] [address] Assigned Heart and Vascular Provider 08/29/20 10/08/22 Luly Grant MD 1655 [facility] [address] [place] [address] Assigned Allergy Provider 08/29/20 04/16/22 Rafita Ayers MD [address] [place] [address] 407945 Assigned Pulmonology Provider 10/12/20 Flo Henry MD 1875 [facility] [address] [place], [place] [address] Assigned Behavioral Health Provider 09/21/20 Susan Robert CHW Community Health Worker Primary Care - CC 04/23/2106/15/21 Jana Vick CHW Community Health Worker Primary Care - CC 06/08/21 Tor Joseph DPM 2945 [facility] [address] [place] [address] Assigned Musculoskeletal Provider 07/05/21 03/19/22 Lorri Larsen MD [address] [place] [address] Otolaryngology 07/21/21 Lorri Larsen MD 9 [place] [address] Assigned Surgical Provider 10/10/21 Rafita Ayers MD [address] [place] [address] Critical Care 11/30/21 Kaelyn New AuD [address] [place] [address] Trolley Car Overhauler Audiology 12/09/21 Marino Hayes MD [address] [place] [address] Cardiovascular Disease 09/28/22 Marino Hayes MD [address] [place] [address] Assigned Heart and Vascular Provider 10/09/22 documented as of this encounter
--- OUTSIDE RECORDS SUMMARY | 2023-02-27 14:33 | XMS_ITS | Encounter Summary ---
Author Name Unknown Organization [facility] Address [address] [place] [address] Care Team Providers Care Maintenance Services Dispatcher Name Role Phone Onesimo Bruno MD Primary Care Provider [phone] Bhavna Mac PharmD Unavailable +[phone] Isaac Bro RN Unavailable Unavailable Ilda Tapia CHW Unavailable +[phone] Onesimo Bruno MD Unavailable [phone] Manuel Calderon MD, Jon Unavailable +[phone] Nataliia Gomez MD Unavailable Luly Grant MD Unavailable +[phone] Rafita Ayers MD Unavailable +[phone] Flo Henry MD Unavailable +[phone] Susan Robert CHW Unavailable Unavailable Jana Vick CHW Unavailable UnavailTor Brown DPM Unavailable +[phone] Lorri Larsen MD Unavailable +[phone] Lorri Larsen MD Unavailable +[phone] Rafita Ayers MD Unavailable +[phone] Kaelyn New Unavailable +[phone] Marino Hayes MD Unavailable +[phone] Marino Hayes MD Unavailable + [phone] Encounter Details Date Type Department Care Team (Late st Contact Info) Description 09/18/2014 Records - [facility] HE CONVERSION Scan, Non-Provider [...] st Contact Info) Description 04/04/2023 1:00 PM CASEWORK SPECIALIST Virtual Visit [facility] Surgery Clinic and Bariatrics Care [address] 200 [place] [phone] Keke Brooks, RD 420 [facility] 84 [place], [place] [address] documented as of this encounter Visit Diagnoses Not on filedocumented in this encounter Care Teams Maintenance Services Dispatcher Relationship Specialty Start Date End Date Onesimo Bruno MD PCP - General 08/11/06 Bhavna Mac, PharmD 870 [place] [address] Pharmacist Pharmacist 07/11/18 Isaac Bro, RN Lead Business Services Manager Primary Care - CC 09/01/18 Ilda Tapia, [facility] Community Health Worker Primary Care - CC 09/01/1804/22 Onesimo Bruno MD 1390 [place] [address] Assigned PCP 07/30/20 Florentino Jackson MD [facility] [address] [place] [address] [place] [address] Assigned Surgical Provider 08/29/20 09/27/20 Nataliia Gomez MD 1600 [facility], [address] [place] [address] Assigned Heart and Vascular Provider 08/29/20 10/08/22 Luly Grant MD [address] [place] [address] Assigned Allergy Provider 08/29/20 04/16/22 Rafita Ayers MD [address] [place] [address] 024875 Assigned Pulmonology Provider 10/12/20 Flo Henry MD [facility] [address] [address] Assigned Behavioral Health Provider 09/21/20 Susan Robert CHW Community Health Worker Primary Care - CC 04/23/2106/15/21 Jana Vick CHW Community Health Worker Primary Care - CC 06/08/21 Tor Joseph DPM 2945 [facility] [address] [place] [address] Assigned Musculoskeletal Provider 07/05/21 03/19/22 Lorri Larsen MD [address] [place] [address] 32629[address] Otolaryngology 07/21/21 Lorri Larsen MD [address] [place] [address] [phone] Assigned Surgical Provider 10/10/21 Rafita Ayers MD [address] [place] [address] Critical Care 11/30/21 Kaelyn New AuD [address] [place] [address] Human Resources Assistant Manager Audiology 12/09/21 Marino Hayes MD [address] [place] [address] Cardiovascular Disease 09/28/22 Marino Hayes MD [address] [place] [address] Assigned Heart and Vascular Provider 10/09/22 documented as of this encounter
--- OUTSIDE RECORDS SUMMARY | 2023-02-27 14:33 | XMS_ITS | Encounter Summary ---
Author Name Unknown Organization [facility] Address [address] [place] [address] Care Team Providers Care Developmental Mathematics Instructor Name Role Phone Onesimo Bruno MD Primary Care Provider [phone] Bhavna Mac PharmD Unavailable +[phone] Isaac Bro RN Unavailable Unavailable Ilda Tapia CHW Unavailable +[phone] Onesimo Bruno MD Unavailable [phone] Manuel Calderon MD, Jon Unavailable +[phone] Nataliia Gomez MD Unavailable Luly Grant MD Unavailable +[phone] Rafita Ayers MD Unavailable +[phone] Flo Henry MD Unavailable +[phone] Susan Robert CHW Unavailable Unavailable Jana Vick CHW Unavailable UnavailTor Brown DPM Unavailable +[phone] Lorri Larsen MD Unavailable +[phone] Lorri Larsen MD Unavailable +[phone] Rafita Ayers MD Unavailable +[phone] Kaelyn New Unavailable +[phone] Marino Hayes MD Unavailable +[phone] Marino Hayes MD Unavailable + [phone] Encounter Details Date Type Department Care Team (Late st Contact Info) Description 09/05/2018 Records - [facility] HE CONVERSION Scan, Non-Provider [...] st Contact Info) Description 04/04/2023 1:00 PM GLOBAL ACCOUNT EXECUTIVE Virtual Visit [facility] Surgery Clinic and Bariatrics Care [address] 200 [place] [phone] Keke rBooks, RD 420 [facility] 84 [place] [address] documented as of this encounter Visit Diagnoses Not on filedocumented in this encounter Additional Health Concerns Assessment Noted Time PHQ-9 Depression Total Score: 8 06/21/19 19 2:31 PM CDT documented as of this encounter Care Teams Developmental Mathematics Instructor Relationship Specialty Start Date End Date Onesimo Bruno MD PCP - General 08/11/06 Bhavna Mac PharmD 870 [place] [address] Pharmacist Pharmacist 07/11/18 Isaac Bro, RN Lead Centrifugal Machine Tender Primary Care - CC 09/01/18 Ilda Tapia CHW Community Health Worker Primary Care - CC 09/01/1804/22 Onesimo Bruno MD 1390 [place] [address] Assigned PCP 07/30/20 Florentino Jackson MD [facility] 347 [facility] N [facility] 602 [place] [address] Assigned Surgical Provider 08/29/20 09/27/20 Nataliia Gomez MD 1600 [facility], [address] [place] [address] Assigned Heart and Vascular Provider 08/29/20 10/08/22 Luly Grant MD 1655 [facility] [address] [place] [address] Assigned Allergy Provider 08/29/20 04/16/22 Rafita Ayers MD [address] [place] [address]205 Assigned Pulmonology Provider 10/12/20 Flo Henry MD 1875 [facility] [address] [place], [place] [address] Assigned Behavioral Health Provider 09/21/20 Susan Robert CHW Community Health Worker Primary Care - CC 04/23/2106/15/21 Jana Vick CHW Community Health Worker Primary Care - CC 06/08/21 Tor Joseph DPM 2945 [facility] [address] [place] [address] Assigned Musculoskeletal Provider 07/05/21 03/19/22 Lorri Larsen MD [address] [place] [address] Otolaryngology 07/21/21 Lorri Larsen MD 9 [place] [address] Assigned Surgical Provider 10/10/21 Rafita Ayers MD [address] [place] [address] Critical Care 11/30/21 Kaelyn New AuD [address] [place] [address] Registered Dental Hygienist Audiology 12/09/21 Marino Hayes MD [address] [place] [address] Cardiovascular Disease 09/28/22 Marino Hayes MD [address] [place] [address] Assigned Heart and Vascular Provider 10/09/22 documented as of this encounter
--- OUTSIDE RECORDS SUMMARY | 2023-02-27 14:33 | XMS_ITS | Encounter Summary ---
Author Name Unknown Organization [facility] Address [address] [place] [address] Care Team Providers Care Salesperson Hosiery Name Role Phone Onesimo Bruno MD Primary Care Provider [phone] Bhavna Mac PharmD Unavailable [phone] Isaac Bro RN Unavailable Unavailable Ilda Tapia CHW Unavailable [phone] Onesimo Bruno MD Unavailable [phone] Manuel Calderon MD, Jon Unavailable [phone] Nataliia Gomez MD Unavailable Luly Grant MD Unavailable [phone] Rafita Ayers MD Unavailable [phone] Flo Henry MD Unavailable [phone] Susan Robert CHW Unavailable Unavailable Jana Vick CHW Unavailable UnavailTor Brown DPM Unavailable [phone] Lorri Larsen MD Unavailable [phone] Lorri Larsen MD Unavailable [phone] Rafita Ayers MD Unavailable [phone] Kaelyn New Unavailable [phone] Marino Hayes MD Unavailable [phone] Marino Hayes MD Unavailable + [phone] Encounter Details Date Type Department Care Team (Late st Contact Info) Description 07/20/2018 Records - [facility] CONVERSION Scan, Non-Provider [...] st Contact Info) Description 04/04/2023 1:00 PM [facility] Virtual Visit [facility] [address] [place] [phone] Keke Brooks, RD [address] [facility] 84 [place] [address] documented as of this encounter Visit Diagnoses Not on filedocumented in this encounter Additional Health Concerns Assessment Noted Time PHQ-9 Depression Total Score: 8 06/21/19 19 2:31 PM CDT documented as of this encounter Care Teams Salesperson Hosiery Relationship Specialty Start Date End Date Onesimo Bruno MD PCP - General 08/11/06 Bhavna Mac PharmD [address] [place] [address] Pharmacist Pharmacist 07/11/18 Isaac Bro, RN Lead Bone Char Kiln Operator Primary Care - CC 09/01/18 Ilda Tapia CHVaibhav Community Health Worker Primary Care - CC 09/01/1804/22 Onesimo Bruno MD [address] [place] [address] Assigned PCP 07/30/20 Florentino Jackson MD [facility] [address] [facility] [address] [facility] 602 [place] [address] Assigned Surgical Provider 08/29/20 09/27/20 Nataliia Gomez MD [address] [facility], [address] [place] [address] Assigned Heart and Vascular Provider 08/29/20 10/08/22 Luly Grant MD [address] [facility] [address] [place] [address] Assigned Allergy Provider 08/29/20 04/16/22 Rafita Ayers MD [address] [place] [address] Assigned Pulmonology Provider 10/12/20 Flo Henry MD [address] [facility] [address] [place], [place] [id number] Assigned Behavioral Health Provider 09/21/20 Susan Robert CHW Community Health Worker Primary Care - CC 04/23/2106/15/21 Jana Vick CHW Community Health Worker Primary Care - CC 06/08/21 Tro Joseph DPM [address] [facility] [address] [place] [address] Assigned Musculoskeletal Provider 07/05/21 03/19/22 Lorri Larsen MD [address] [place] [address] Otolaryngology 07/21/21 Lorri Larsen MD 9 [place] [address] Assigned Surgical Provider 10/10/21 Rafita Ayers MD [address] [place] [address] Critical Care 11/30/21 Kaelyn New AuD [address] [place] [address] Director Smb Sales Audiology 12/09/21 Marino Hayes MD [address] [place] [address] Cardiovascular Disease 09/28/22 Marino Hayes MD [address] [place] [address] Assigned Heart and Vascular Provider 10/09/22 documented as of this encounter
--- OUTSIDE RECORDS SUMMARY | 2023-02-27 14:34 | XMS_ITS | Clinical Summary ---
Author Name Unknown Organization [facility] Address [place], [place] [address] Care Team Providers Care Filter Plant Supervisor Name Role Phone Onesimo Bruno MD Primary Care Provider [phone] Josh Samayoa PsyD, LP Unavailable [phone] Allergies Active Allergy Reactions Criticality Noted Date Comments Oxycodone Itching 09/20/2018 Medications Medication Sig Dispensed Refills Start Date End Date Status XARELTO 20 mg tablet Take 20 mg by mouth at bedtime. 0 03/15/2016 Active venlafaxine (EFFEXOR XR) 150 mg Extended-Release capsule Take 150 mg by mouth once daily with a meal. 0 03/30/2016 Active metoprolol succinate (TOPROL XL) 50 mg sustained-release tablet Take 50 mg by mouth once daily. 1 04/17/2016 Active NUVIGIL 250 mg tablet Take 150 mg by mouth once daily. 0 03/19/2016 Active lisinopril (PRINIVIL; ZESTRIL) 5 mg tablet Take 5 mg by mouth once daily. 0 03/16/2016 Active rosuvastatin (CRESTOR) 40 mg tablet Take 40 mg by mouth at bedtime. 0 03/02/2016 Active divalproex (DEPAKOTE ER) 500 mg Extended-Release tablet Take 500 mg by mouth at bedtime. 5 03/19/2016 Active albuterol-ipratropiu m (DUONEB) (2.5-0.5 mg) in 3 mL NEBULIZATION solution VVN Q FOUR TO SIX H PRF SOB 0 11/13/2018 Active VENTOLIN HFA 90 mcg/actuation inhaler TAKE 2 PUFFS EVERY 6 HOURS PRN 0 10/28/2018 Active BREO ELLIPTA 200mcg/25mcg inhaler INL 1 PUFF PO D 5 10/24/2018 Active metFORMIN (GLUCOPHAGE XR) 500 mg Extended-Release tablet Take 500 mg by mouth once daily. 0 09/13/2019 Active L.RHAMNOSUS [id number] OIL ORAL Take 500 mg by mouth once daily. 0 Active ezetimibe (ZETIA) 10 mg tablet Take 10 mg by mouth once daily. 0 11/03/2019 Active fluticasone (50 mcg per actuation) nasal solution (FLONASE) Inhale 1 [place] in the nostril(s) 2 times daily if needed. 0 10/18/2018 Active nitroglycerin (NITROSTAT) 0.4 mg sublingual tablet 0.4 mg at bedtime if needed. 0 02/19/2019 Active tamsulosin (FLOMAX) 0.4 mg capsule 0.4 mg one time if needed. 0 09/25/2019 Active gabapentin (NEURONTIN) 300 mg capsule Take 600 mg by mouth. 0 02/11/2020 Active ketoconazole 2% shampoo (NIZORAL) 2 % shampoo APPLY TO SCALP THREE TIMES A WEEK NEEDED AND THEN RINSE WELL 0 01/18/2020 Active fluocinonide 0.05 TOPICAL (LIDEX) 0.05 % external solution APPLY EXTERNALLY TO THE SCALP TWICE DAILY NEEDED 0 01/18/2020 Active CPAPIndications:IDA (obstructive sleep apnea) CPAP machine for home use at pressure 8-20cm, full face mask x1/3month with a full face cushion x1/mo 1 Device 11 03/11/2020 Active clindamycin 1% (CLEOCIN-T) 1 % lotion APPLY TOPICALLY TO THE AFFECTED AREA TWICE DAILY. MIX WITH KETOCONAZOLE CREAM 0 07/20/2021 Active furosemide (LASIX) 20 mg tablet Take 0.5 Tablets by mouth once daily. 0 07/26/2021 Active buPROPion (WELLBUTRIN SR) 100 mg Sustained-Release tablet Take 100 mg by mouth every morning. 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 09/26/2018 Major neurocognitive disorde r, due to traumatic brain injury, with behavioral disturbance, moderate 05/19/2016 Bipolar affective disorder, currently depressed, moderate 04/26/2016 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, sequela 05/19/2016 05/19/2016 Encounters Date Type Department Care Team Description 02/23/2023 1:45 PM HYDRAULIC DESIGN ENGINEER Telemedicine [facility] [address] [place] [address] Josh Samayoa PsyD, LP Individual Therapy; Trmt Plan 02/23/2023 Travel 02/18/2023 1:22 PM HYDRAULIC DESIGN ENGINEER - 02/18/2023 11:59 PM HYDRAULIC DESIGN ENGINEER Hospital Encounter [facility] [address] [place] [address] Onesimo Bruno MD NAVAS (dyspnea on exertion) 02/18/2023 Travel 02/16/2023 1:18 PM HYDRAULIC DESIGN ENGINEER - 02/16/2023 11:59 PM HYDRAULIC DESIGN ENGINEER Hospital Encounter [address] [address] Onesimo Bruno MD NAVAS (dyspnea on exertion) 02/16/2023 Travel 02/09/2023 1:30 PM HYDRAULIC DESIGN ENGINEER - 02/09/2023 11:59 PM HYDRAULIC DESIGN ENGINEER Hospital Encounter [address] [address] Onesimo Bruno MD NAVAS (dyspnea on exertion) 02/09/2023 Travel 02/04/2023 1:18 PM HYDRAULIC DESIGN ENGINEER - 02/04/2023 11:59 PM HYDRAULIC DESIGN ENGINEER Hospital Encounter [address] [address] Onesimo Bruno MD NAVAS (dyspnea on exertion) 02/04/2023 Travel 02/02/2023 1:45 PM HYDRAULIC DESIGN ENGINEER Telemedicine [facility] [address] [place] [address] Josh Samayoa PsyD, LP Mental Health Intake 02/02/2023 11:23 AM HYDRAULIC DESIGN ENGINEER - 02/02/2023 11:59 PM HYDRAULIC DESIGN ENGINEER Hospital Encounter [facility] [address] [place] [address] Onesimo Bruno MD NAVAS (dyspnea on exertion) 02/02/2023 Travel 01/31/2023 1:27 PM HYDRAULIC DESIGN ENGINEER - 01/31/2023 11:59 PM HYDRAULIC DESIGN ENGINEER Hospital Encounter [facility] [address] [place] [address] Onesimo Bruno MD NAVAS (dyspnea on exertion) 01/31/2023 Travel 01/28/2023 1:25 PM HYDRAULIC DESIGN ENGINEER - 01/28/2023 11:59 PM HYDRAULIC DESIGN ENGINEER Hospital Encounter [facility] [address] [place] [address] Onesimo Bruno MD NAVAS (dyspnea on exertion) 01/28/2023 Travel 01/25/2023 2:17 PM HYDRAULIC DESIGN ENGINEER - 01/25/2023 11:59 PM HYDRAULIC DESIGN ENGINEER Hospital Encounter [facility] [address] [place] [address] NAVAS (dyspnea on exertion) (Primary Dx) 01/25/2023 Travel 01/11/2023 10:15 AM HYDRAULIC DESIGN ENGINEER Telemedicine [facility] [address] [place] [address] Jsoh Samayoa PsyD, LP Individual Therapy 2022 10:15 AM HYDRAULIC DESIGN ENGINEER Telemed[facility] [address] [place] [address] Josh Samayoa PsyD, LP Individual Therapy; Family Therapy 2022 Travel 12/14/2022 10:15 AM CDT [facility] [address] [place] [address] Josh Samayoa PsyD, LP Individual Therapy 12/14/2022 Travel 12/07/2022 8:55 AM CDT - 12/07/2022 11:59 PM CDT Hospital Encounter [facility] [address] [place] [address] Onesimo Bruno MD Reger, Libby, OT 12/07/2022 Travel 11/30/2022 10:15 AM CDT Tele[facility]icine [facility] [address] [place] [address] Josh Samayoa, Germain, LP Failed Appointment from Last 3 Months Social History Tobacco Use Types Packs/Day Years Used Date Smoking Tobacco: Never Smokeless Tobacco: Never PHQ-2 Answer Date Recorded PHQ-2 TOTAL SCORE 2 01/25/2023 Social Connections Answer Date Recorded Frequency of Communication with Friends and Fami ly Not on file 02/04/2021 Financial Resource Strain Answer Date R ecorded Difficulty of Paying Living Expenses Not on file 02/04/2021 Difficulty of Paying Living Expenses Not on file 02/04/2021 Sex and Gender Information Value Date Recorded Sex Assigned at Male 08/04/2020 10:55 AM CDT Gender Identity Male 08/04/2020 10:55 AM CDT Sexual Orientation Lesbian or Garcia 08/04/2020 10 :55 AM CDT Obstetrics History Last Filed Vital Signs Vital Sign Reading Time Taken Comments Blood Pressure 140/80 01/25/2023 4:00 PM HYDRAULIC DESIGN ENGINEER Pulse 98 01/25/2023 4:00 PM HYDRAULIC DESIGN ENGINEER Temperature 35.7 ??C (96.2 ??F) 08/24/2021 9:45 AM CD T Respiratory Rate 20 01/25/2023 4:00 PM HYDRAULIC DESIGN ENGINEER Oxygen Saturation 97% 01/25/2023 4:00 PM HYDRAULIC DESIGN ENGINEER Inhaled Oxygen Concentration - - Weight 135.7 kg (299 lb 1.6 oz) 01/25/2023 4:00 PM HYDRAULIC DESIGN ENGINEER Height 182.9 cm (6') 01/25/2023 4:00 PM HYDRAULIC DESIGN ENGINEER Body Mass Index 40.57 01/25/2023 4:00 PM HYDRAULIC DESIGN ENGINEER Plan of Treatment Upcoming Encounters Date Type Department Care Team (Late st Contact Info) Description 02/28/2023 1:30 PM HYDRAULIC DESIGN ENGINEER Appointment [facility] [address] [place] [address] 03/02/2023 1:30 PM HYDRAULIC DESIGN ENGINEER Appointment [facility] [address] [place] [address] 03/04/2023 1:30 PM HYDRAULIC DESIGN ENGINEER Appointment [address] [address] 03/07/2023 1:30 PM HYDRAULIC DESIGN ENGINEER Appointment [address] [address] 03/09/2023 9:00 AM HYDRAULIC DESIGN ENGINEER Telemedicine [facility] [address] [place] [address] Josh Samayoa PsyD, TALA [address] [place] [address] 03/09/2023 1:30 PM HYDRAULIC DESIGN ENGINEER Appointment [address] [address] 03/11/2023 1:30 PM HYDRAULIC DESIGN ENGINEER Appointment [address] [address] 03/14/2023 1:30 PM HYDRAULIC DESIGN ENGINEER Appointment [address] [address] 03/16/2023 1:30 PM HYDRAULIC DESIGN ENGINEER Appointment [address] [address] 03/18/2023 1:30 PM HYDRAULIC DESIGN ENGINEER Appointment [address] [address] 03/21/2023 1:30 PM HYDRAULIC DESIGN ENGINEER Appointment [address] [address] 03/23/2023 10:30 AM HYDRAULIC DESIGN ENGINEER Telemedicine [facility] [address] [place] [address] Josh Samayoa PsyD, TALA [address] [place] [address] 03/23/2023 1:30 PM HYDRAULIC DESIGN ENGINEER Appointment [address] [address] 03/25/2023 1:30 PM HYDRAULIC DESIGN ENGINEER Appointment [facility] [address] [facility] [place] [address] 03/28/2023 1:30 PM HYDRAULIC DESIGN ENGINEER Appointment [facility] [address] [facility] [place] [address] 03/30/2023 1:30 PM HYDRAULIC DESIGN ENGINEER Appointment [facility] [address] [facility] [place] [address] 04/01/2023 1:30 PM HYDRAULIC DESIGN ENGINEER Appointment [facility] [address] [facility] [place] [address] 04/04/2023 1:30 PM HYDRAULIC DESIGN ENGINEER Appointment [facility] [address] [facility] [place] [address] 04/06/2023 9:45 AM HYDRAULIC DESIGN ENGINEER Telemedicine [facility] [address] [facility] [address] [place] [address] Josh Samayoa, PsyD, [address] [address] 04/06/2023 1:30 PM HYDRAULIC DESIGN ENGINEER Appointment [facility] [place] [address] 04/08/2023 1:30 PM HYDRAULIC DESIGN ENGINEER Appointment [address] [address] 04/11/2023 1:30 PM HYDRAULIC DESIGN ENGINEER Appointment [facility] [address] [place] [address] 04/13/2023 1:30 PM HYDRAULIC DESIGN ENGINEER Appointment [facility] [address] [place] [address] 04/15/2023 1:30 PM HYDRAULIC DESIGN ENGINEER Appointment [facility] [address] [place] [address] 04/18/2023 1:30 PM HYDRAULIC DESIGN ENGINEER Appointment [address] [address] 04/20/2023 10:30 AM HYDRAULIC DESIGN ENGINEER Telemedicine [facility] [address] [place] [address] Josh Samayoa, Germain, LP [address] [place] [address] 04/20/2023 1:30 PM HYDRAULIC DESIGN ENGINEER Appointment [facility] [address] [place] [address] 04/22/2023 1:30 PM HYDRAULIC DESIGN ENGINEER Appointment [facility] [address] [place] [address] 04/25/2023 1:30 PM CDT Appointment [facility] [address] [place] [address] 04/27/2023 11:30 AM CDT Appointment [facility] [address] [place] [address] 04/29/2023 1:30 PM CDT Appointment [facility] [address] [place] [address] 05/02/2023 1:30 PM CDT Appointment [facility] [address] [place] [address] Health Maintenance Due Date Last Done Comments Tdap 12/29/1963 Hepatitis C screening for ag e 18-79 1970 Tetanus booster 1972 Colonoscopy through age 75 1997 Lipids for age 45-75 1997 Zoster (shingles) series for age 50+ (1 of 2) 2002 Medicare Wellness for age 65+ 2017 Pneumococcal series for age 65+ (1 of 1 - PCV) 2017 BMI (ht and wt on same day) for age 18+ 08/24/2022 08/24/2021, 03/11/2020, 09/20/2018, Additional history exists Influenza for age 65+ 10/15/2022 Depression screening for age 12+ 01/29/2024 01/28/2023, 01/25/2023, 04/16/2022, Additional history exists COVID-19 vaccine series Completed 12/09/19, 06/18/2021, 01/23/2021, Additional history exists Procedures Procedure Name Priority Date/Time Associated Diagnosis Comments SCAN-CARDIAC REHABILITATION 02/18/2023 1:24 PM HYDRAULIC DESIGN ENGINEER SCAN-CARDIAC REHABILITATION 02/16/2023 1:25 PM HYDRAULIC DESIGN ENGINEER SCAN-CARDIAC REHABILITATION 02/09/2023 1:33 PM HYDRAULIC DESIGN ENGINEER SCAN-CARDIAC REHABILITATION 02/04/2023 1:27 PM HYDRAULIC DESIGN ENGINEER SCAN-CARDIAC REHABILITATION 02/02/2023 11:33 AM HYDRAULIC DESIGN ENGINEER SCAN-CARDIAC REHABILITATION 01/31/2023 1:31 PM HYDRAULIC DESIGN ENGINEER SCAN-CARDIAC REHABILITATION 01/28/2023 1:31 PM HYDRAULIC DESIGN ENGINEER SCAN-CARDIAC REHABILITATION 01/25/2023 3:03 PM HYDRAULIC DESIGN ENGINEER SCAN-CARDIAC REHABILITATION 01/25/2023 3:03 PM HYDRAULIC DESIGN ENGINEER from Last 3 Months Results * SCAN-CARDIAC REHABILITATION (02/18/2023 1:24 PM HYDRAULIC DESIGN ENGINEER) Only the most recent of9 resultswithin the time period is included. Scanner OTHER from Last 3 Months Care Teams Filter Plant Supervisor Relationship Specialty Start Date End Date Onesimo Bruno MD [address] [place] [address] PCP - General Internal Medicine 11/11/14 Josh Samayoa, Germain, LP [address] [facility] [address] [place] [address] Psychology 06/15/22
[2023-02-27 14:36] LABS: Basophils Absolute Auto 0.01 K/uL (0.00-0.30); Basophils Percent Auto 0.1 % (0.0-3.0); Eosinophils Absolute Auto 0.05 K/uL (0.00-0.50); Eosinophils Percent Auto 0.7 % (0.0-7.0); Hematocrit 45.2 % (37.0-53.0); Hemoglobin* 14.8 gm/dL (13.5-17.5); Immature Granulocytes Abs Auto 0.06 K/uL (0.00-0.30); Immature Granulocytes Pct Auto 0.8 %; Lymphocytes Percent Auto 16.8 % (20-44); Mean Corpuscular HGB Conc 33 gm/dL (32-36); Mean Corpuscular Hemoglobin 31 pg (26-34); Mean Corpuscular Volume 95 fL (80-100); Monocytes Percent Auto 6.2 % (0.0-11.0); Neutrophils Percent Auto 75.4 % (42.0-72.0); Platelet Count* 188 K/uL (140-440); RDW Coefficient of Variation % 13.5 % (11.5-15.5); Red Blood Count 4.78 m/uL (4.30-5.90); White Blood Count* 7.13 K/uL (4.50-11.00)
[2023-02-27 14:37] LABS: Slide Review Reflex No
[2023-02-27 14:44] LABS: Chloride* 102 mmol/L (96-114)
[2023-02-27 14:45] LABS: Potassium* 4.6 mmol/L (3.6-5.1); Sodium* 137 mmol/L (135-149)
[2023-02-27 14:47] LABS: Creatinine* 1.2 mg/dL (0.5-1.5); Est. Creatinine Clearance* 62.87; Estimated Glomerular Filt Rate 65 ml/min
[2023-02-27 14:48] LABS: Anion Gap 7 mEq/L (7-15); Blood Urea Nitrogen* 19 mg/dL (7-30); Calcium* 9.3 mg/dL (8.4-10.6); Carbon Dioxide* 28 mmol/L (20-32); Glucose* 127 mg/dL (60-115)
[2023-02-27 15:01] LABS: PCR FLU A Negative PCR FLU A (Negative); PCR FLU B Negative PCR FLU B (Negative); PCR RSV POSITIVE PCR RSV (Negative); SARS PCR* Negative SARS-CoV-2 (Negative)
== END 2023-02-27 16:20 | disposition home or self-care (01) ==
PROVIDERS: Emergency Provider Family Medicine
DX: J45.901 Unspecified asthma with (acute) exacerbation (principal); B97.4 Respiratory syncytial virus as the cause of diseases classified elsewhere
CPT/HCPCS: 36415; 71046; 80048; 85025; 87631; 94640; 99284; J7512

== ENCOUNTER 2023-03-01 14:59 | Emergency (ER) | payer MEDICARE, BC, SELFPAY ==
[2023-03-01 15:01] VITALS: BP 158/85; PULSE 96; RESP 18; TEMP 36.6; O2SAT 94; BMI 40.3
--- NOTE | 2023-03-01 15:48 | CRLHL7_ITS ---
For Patients: As a result of the Cures Act, medical imaging exams and procedure reports are released immediately into your electronic medical record. You may view this report before your referring provider. If you have questions, please contact your health care provider. INDICATION: Chest pain. TECHNIQUE: Chest 2 views. COMPARISON: February 27, 2023. FINDINGS: Cardiovascular and mediastinum: Cardiomediastinal silhouette is within normal limits Lungs and pleural spaces: Slightly low lung volumes. No sign of pleural effusion. No pneumothorax. Bones and soft tissues: No significant findings. IMPRESSION: No acute cardiopulmonary process identified. No significant interval change.. Dictated by Frannie Bergman MD @ 03/01/2023 5:27:54 PM (Electronically Signed)
--- NOTE | 2023-03-01 15:49 | ED_ITS ---
HPI - General Adult General Chief complaint: Syncope/Fainted Stated complaint: RSV+, passing out after coughing fits Time Seen by Provider: 03/01/23 15:01 History of Present Illness HPI narrative: This 72-year-old male comes in because of coughing fits to where he almost loses consciousness. He was seen a couple days ago and diagnosed with RSV. He arrives here with normal vital signs. He states that the coughing fits last about 15 seconds but they were so intense that is hard for him to catch his breath. He states that he has been taking migk-[id number]-mobbfqe cough medicine. He does not report any fevers. He did receive a steroid a couple days ago and has been using an inhaler. Related Data Home Medications Medication Instructions Recorded Confirmed ezetimibe 10 mg tablet 10 mg PO DAILY 05/31/22 03/01/23 furosemide 20 mg tablet 20 mg PO DAILY 05/31/22 03/01/23 lisinopril 5 mg tablet 5 mg PO DAILY 05/31/22 03/01/23 metoprolol succinate 50 mg 50 mg PO DAILY 05/31/22 03/01/23 tablet,extended release 24 hr nitroglycerin 0.4 mg sublingual 0.4 mg sublingual ONCE 05/31/22 03/01/23 tablet rosuvastatin 40 mg tablet 40 mg PO DAILY 05/31/22 03/01/23 tamsulosin 0.4 mg capsule 0.4 mg PO Q24H 05/31/22 03/01/23 armodafinil 250 mg tablet 250 mg PO DAILY 09/17/22 03/01/23 bupropion HCl 100 mg tablet,12 hr 100 mg PO QAM 09/17/22 03/01/23 sustained-release rivaroxaban 20 mg tablet (Xarelto) 20 mg PO DAILY 09/17/22 03/01/23 venlafaxine 150 mg 150 mg PO DAILY 09/17/22 03/01/23 capsule,extended release 24 hr venlafaxine 75 mg capsule,extended 75 mg PO DAILY 09/17/22 03/01/23 release 24 hr albuterol sulfate 90 mcg/actuation 2 puff inhalation Q6H PRN 02/27/23 03/01/23 aerosol inhaler doxycycline hyclate 100 mg tablet 100 mg PO BID 02/27/23 03/01/23 trilage Inhaled .am 03/01/23 Previous Rx's Medication Instructions Recorded acetaminophen 300 mg-codeine 30 mg 1 tab PO Q6H PRN pain #20 tabs 03/01/23 tablet Allergies Allergy/AdvReac Type Severity Reaction Status Date / Time oxycodone Allergy Rash Verified 03/01/23 15:16 Review of Systems 2 Status of ROS: Reports: 10 or more systems reviewed and unremarkable except as noted in History and below Narrative: Constitutional: No fevers, no weight gain or loss. Eyes: No discharge. No vision changes. HENT: No congestion, no sore throat, no ear pain. Cardiovascular: No chest pain, no palpitations. Respiratory: No shortness of breath, no wheezes. Coughing fits as described above. Gastrointestinal: No abdominal pain, no vomiting, no diarrhea. Genitourinary: No dysuria, no hematuria. Musculoskeletal: Normal range of motion. Skin: No rashes, no pruritis. Neurological: No dizziness, weakness, sensory change, speech change. Endo/Heme/Allergies: No bruising or bleeding. No polydipsia. Pysch: no suicidality, no anxiety, no insomnia. All other systems reviewed and are negative. [facility] Medical History Fracture of phalanx of toe of right foot ?S92.911A - Unspecified fracture of right toe(s), initial encounter for closed fracture (ICD-10) Concussion ?S06.0XAA - Concussion with loss of consciousness status unknown, initial encounter (ICD-10) Cardiac arrhythmia ?I49.9 - Cardiac arrhythmia, unspecified (ICD-10) Type 2 diabetes mellitus ?E11.9 - Type 2 diabetes mellitus without complications (ICD-10) CAD (coronary artery disease) ?I25.10 - Atherosclerotic heart disease of [place] coronary artery without angina pectoris (ICD-10) COPD (chronic obstructive pulmonary disease) ?J44.9 - Chronic obstructive pulmonary disease, unspecified (ICD-10) Asthma ?J45.909 - Unspecified asthma, uncomplicated (ICD-10) Surgical History History of coronary artery stent placement ?Z95.5 - Presence of coronary angioplasty implant and graft (ICD-10) Social History Smoking Status: Never smoker Do you use any of these nicotine containing products: None Second hand tobacco smoke exposure: No How often do you have a drink containing alcohol: never How often do you have six or more drinks on one occasion: Never AUDIT-C Alcohol total score: 0 Non-prescribed substance use: denies use service: No Exam Narrative: Exam Narrative: Constitutional: Well-developed, well-nourished, no acute distress. HEENT: Normocephalic, atraumatic. Neck: Normal range of motion. Nontender. Supple. Heart: Regular. No murmurs. Normal rate. Intact distal pulses. Lungs: Clear to auscultation. No chest discomfort. No wheezes, rhonchi, or rales. Abdomen: Normal bowel sounds. Nontender. No rebound tenderness. Genitalia: Deferred. Back: No midline tenderness. Normal range of motion. Extremities: Normal range of motion. No injury. Skin: Intact. No rash. Warm. No erythema or pallor. Neurologic: No altered sensation. No weakness. Alert and oriented. Psychiatric: No suicidality. No anxiety or depression. No insomnia. Nursing notes and vitals signs are reviewed. Const: Vital Signs, click to edit/add: Vital Signs - 24 hr 03/01/23 15:01 03/01/23 16:45 Temperature 97.9 F Pulse Rate [Right Pulse Oximeter] 96 88 Respiratory Rate 18 Blood Pressure [Ri ght Upper Arm] 158/85 H 124/78 Pulse Oximetry 94 93 Oxygen Delivery Me thod Room Air Room Air Course Vital Signs Vital signs: Initial Vital Signs Temperature 97.9 F 03/01/23 15:01 Temperature Source Temporal Artery Scan 03/01/23 15:01 Pulse Rate 96 03/01/23 15:01 Respiratory Rate 18 03/01/23 15:01 Blood Pressure 158/85 H 03/01/23 15:01 Blood Pressure Mean 109 H 03/01/23 15:01 Blood Pressure Position Sitting 03/01/23 15:01 Pulse Oximetry 94 03/01/23 15:01 Oxygen Delivery Method Room Air 03/01/23 15:01 Vital Signs Temperature 97.9 F 03/01/23 15:01 Pulse Rate 96 03/01/23 15:01 Respiratory Rate 18 03/01/23 15:01 Blood Pressure 158/85 H 03/01/23 15:01 Pulse Oximetry 94 03/01/23 15:01 Oxygen Delivery Method Room Air 03/01/23 15:01 Temperature 97.9 F 03/01/23 15:01 Pulse Rate 88 03/01/23 16:45 Respiratory Rate 18 03/01/23 15:01 Blood Pressure 124/78 03/01/23 16:45 Pulse Oximetry 93 03/01/23 16:45 Oxygen Delivery Method Room Air 03/01/23 16:45 Medications Administered Medications: Discontinued Medications Generic Name Dose Route Start Last Admin Trade Name Freq PRN Reason Stop Dose Admin Sodium Chloride 1,000 mls @ 1,000 mls/hr 03/01/23 16:00 03/01/23 17:03 0.9 % Sodium Chloride 1000 Ml IV 03/01/23 16:59 Infused .Q1H MARIO Infusion Medical Decision Making MDM Narrative Medical decision making narrative: This 72-year-old male has RSV and comes in reporting coughing fits that last for 10 or 15 seconds where he is unable to sufficiently ventilate. He becomes lightheaded and feels like he might pass out. He arrives here with normal vital signs. A chest x-ray is done and shows no acute pulmonary findings. An IV was established where he did receive a L of normal saline. Complete blood count is obtained and returns with normal findings. The patient has been using afwq-trp-ghidscs cough medicine without sufficient relief when these episodes occur. I did prescribe Tylenol 3 for additional cough suppressant benefit that he can use in addition to his cnrd-jqo-fegadvs cough medicines. The patient is reassured and agreeable with this plan. Lab Data Labs: Lab Results 03/01/23 Range/Units 15:55 WBC 8.22 (4.50-11.00) K/uL RBC 4.72 (4.30-5.90) m/uL Hgb 14.6 (13.5-17.5) gm/dL Hct 44.8 (37.0-53.0) % MCV 95 (80-100) fL MCH 31 (26-34) pg MCHC 33 (32-36) gm/dL RDW Coeff of Cosmo 14.0 (11.5-15.5) % Plt Count 203 (140-440) K/uL Neut % (Auto) 82.6 H (42.0-72.0) % Lymph % (Auto) 13.7 L (20-44) % [place] % (Auto) 3.4 (0.0-11.0) % Eos % (Auto) 0.0 (0.0-7.0) % Baso % (Auto) 0.1 (0.0-3.0) % Neut # (Auto) 6.80 (1.7-7.0) K/uL Lymph # (Auto) 1.10 (0.90-2.90) K/uL [place] # (Auto) 0.30 (0.00-0.90) K/UL Eos # (Auto) 0.00 (0.00-0.50) K/uL Baso # (Auto) 0.01 (0.00-0.30) K/uL Abs Immat Gran (auto) 0.02 (0.00-0.30) K/uL Imm/Tot Granulo (auto) 0.2 % Imaging Data Chest x-ray: Radiologist's impression: No acute cardiopulmonary process identified. No significant interval change. Discharge Plan Discharge Clinical Impression: RSV infection Patient Disposition: Home, Self-Care Condition: Stable Additional Instructions: Take medication as prescribed and needed. Follow up with MD or return if symptoms are worsening. Prescriptions: New acetaminophen-codeine 300-30 mg tablet 1 tab PO Q6H PRN (Reason: pain) Qty: 20 0RF No Action rosuvastatin 40 mg tablet 40 mg PO DAILY metoprolol succinate 50 mg tablet extended release 24 hr 50 mg PO DAILY Patient Comments: TAKE 1 TABLET BY MOUTH DAILY lisinopril 5 mg tablet 5 mg PO DAILY furosemide 20 mg tablet 20 mg PO DAILY tamsulosin 0.4 mg capsule 0.4 mg PO Q24H nitroglycerin 0.4 mg tablet, sublingual 0.4 mg sublingual ONCE ezetimibe 10 mg tablet 10 mg PO DAILY venlafaxine 75 mg capsule,extended release 24hr 75 mg PO DAILY venlafaxine 150 mg capsule,extended release 24hr 150 mg PO DAILY bupropion HCl 100 mg tablet sustained-release 12 hr 100 mg PO QAM Xarelto 20 mg tablet 20 mg PO DAILY armodafinil 250 mg tablet 250 mg PO DAILY albuterol sulfate 90 mcg/actuation HFA aerosol inhaler 2 puff INHALATION Q6H PRN doxycycline hyclate 100 mg tablet 100 mg PO BID trilage Inhaled .am Patient Comments: inhaler daily in am Follow Up/Referrals: Provider,Not a Local [Primary Care Provider] - Stand Alone Forms: [employer] Info Instructions
[2023-03-01] MEDS: 0.9 % SODIUM CHLORIDE 1000 ml 1,000 ML IV (16:05)
[2023-03-01 16:10] LABS: Basophils Absolute Auto 0.01 K/uL (0.00-0.30); Basophils Percent Auto 0.1 % (0.0-3.0); Hematocrit 44.8 % (37.0-53.0); Hemoglobin* 14.6 gm/dL (13.5-17.5); Immature Granulocytes Abs Auto 0.02 K/uL (0.00-0.30); Immature Granulocytes Pct Auto 0.2 %; Lymphocytes Percent Auto 13.7 % (20-44); Mean Corpuscular HGB Conc 33 gm/dL (32-36); Mean Corpuscular Hemoglobin 31 pg (26-34); Mean Corpuscular Volume 95 fL (80-100); Monocytes Percent Auto 3.4 % (0.0-11.0); Neutrophils Percent Auto 82.6 % (42.0-72.0); Platelet Count* 203 K/uL (140-440); Red Blood Count 4.72 m/uL (4.30-5.90); White Blood Count* 8.22 K/uL (4.50-11.00)
[2023-03-01 16:25] LABS: Slide Review Reflex No
[2023-03-01 16:45] VITALS: BP 124/78; PULSE 88; O2SAT 93
== END 2023-03-01 18:03 | disposition home or self-care (01) ==
PROVIDERS: Emergency Provider Emergency Medicine Emergency Medical Services
DX: R05.9 Cough, unspecified (principal); B97.4 Respiratory syncytial virus as the cause of diseases classified elsewhere
CPT/HCPCS: 36415; 71046; 85025; 96360; 99284; J7030

== ENCOUNTER 2023-05-16 02:19 | Outpatient (CLI) | payer MEDICARE, BC, SELFPAY ==
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
--- OUTSIDE RECORDS SUMMARY | 2023-05-21 07:06 | XMS_ITS | Encounter Summary ---
Author Name Unknown Organization [place] Address [address] [place] [address] Care Team Providers Care Community Marketing Manager Name Role Phone Onesimo Bruno MD Primary Care Provider [phone] Bhavna Mac PharmD Unavailable [phone] Isaac Bro RN Unavailable [phone] Onesimo Bruno MD Unavailable [phone] Rafita Ayers MD Unavailable [phone] Flo Henry MD Unavailable [phone] Jana Vick Vaibhav Unavailable Unavailabl Lorri Luo MD Unavailable [phone] Rafita Ayers MD Unavailable [phone] Kaelyn New Unavailable [phone] Marino Hayes MD Unavailable [phone] Marino Hayes MD Unavailable [phone] Reason for Referral * Diagnostic Imaging NM (Routine) - Pending Review Specialty Diagnoses / Procedures Referred By Contac t Referred To Contact Radiology. Diagnoses NAVAS (dyspnea on exertion) Coronary artery disease involving [place]ag coronary artery of wamp[place]ag heart, unspecified whether angina present Essential hypertension, benign Procedures NM MPI Treadmill Nataliia Gomez MD [address] [facility], [address] [place] [address] Referral ID Status Reason Start Date Expiration Date V isits Requested Visits Authorized [id number] Pending Review 05/20/2023 05/19/2024 1 1 Reason for Visit * Reason Comments Follow Up Encounter Details Date Type Department Care Team (Late st Contact Info) Description 05/20/2023 10:50 AM CDT Office Visit [address] [place] [address] Nataliia Gomez MD [address] [facility], [address] [place] [address] NAVAS (dyspnea on exertion) (Primary Dx); Chest discomfort; Coronary artery disease involving wampanoag coronary artery of wampanoag heart, unspecified whether angina present; Essential hypertension, benign; Hypercholesterolemia; Class 3 severe obesity due to excess calories with serious comorbidity and body mass index (BMI) of 40.0 to 44.9 in adult (H) Social History Tobacco Use Types Packs/Day [...] Pulse 81 05/20/2023 10:51 AM CDT Temperature - - Respiratory Rate 16 05/20/2023 10:5 1 AM CDT Oxygen Saturation 93% 05/20/2023 10: 51 AM CDT Inhaled Oxygen Concentration - - Weight 137.6 kg (303 lb 6.4 oz) 024 10:51 AM CDT Height - - Body Mass Index 41.15 05/10/2023 2:18 PM CDT documented in this encounter Patient Instructions * Patient Instructions* Nataliia Gomez MD - 05/20/2023 10:50 AM CDT Continue current medications Set up nuclear stress test with further recommendations to follow documented in this encounter Progress Notes * Nataliia Gomez MD - 05/20/2023 10:50 AM CDT Images from the original note were not included. Thank you, Dr. Onesimo Bruno, for asking the [facility] Care team to see Mr. Roger Luong to follow-up on chest discomfort. Assessment/Recommendations Assessment: 1. Exertional chest and left arm discomfort, suspicious for angina although cannot exclude contribution from asthma. He has not had recurrence of the symptoms since the isolated event. His last nuclear stress test in September 2022 was negative for ischemia. I did suggest repeating his nuclear stress test but at this time we will have him walk the treadmill if possible to see if we can reproduce hissymptoms. 2. Coronary artery disease, status post stenting of the proximal left anterior descending in 2002 for unstable angina with most recent nuclear stress test in September 2022 demonstrating no evidence of ischemia. 3. Hypercholesterolemia, well-controlled with most recent lipid profile demonstrating an LDL of 69 4. Essential hypertension, well-controlled 5. Asthma 6. Obesity Plan: 1. Continue current medications 2. Schedule exercise nuclear stress test with further recommendations to follow History of Present Illness Mr. Roger Luong is a 72 year old male with history of coronary artery disease, status post stenting of the proximal left anterior descending in 2002 for unstable angina, essential hypertension, hypercholesterolemia, IDA treated with CPAP and obesity who presents to the office today for evaluation of an episode of exertional chest and left arm pain. Patient last underwent a nuclear stress test in September 2022 for symptoms of exertional dyspnea which was negative for ischemia or infarction. More recently, he has been participating in outpatient cardiac rehab which had been going well. About2 weeks ago, he decided to walk to his dentist office which is about 8/10 of a mile away. Initially started out at the pace he walks in cardiac rehab but realized he would not make it so spat up his pace. When he was about a half a block away, he states he began to get really short of breath and noted discomfort in his chest radiating into his left arm. He was diaphoretic by the time he got to the dentist office. They sat him in the chair and had him rest where he noted resolution of his symptoms. His blood pressure at the time was about 130/70. He is now here for further recommendation. Has had no recurrence of the symptoms since that episode and reports no similar symptoms during his recent cardiac rehab although he has not done rehab since this event. Denies any orthopnea, PND. Does have chronic lower extremity edema for which she wears compression stockings. He did stop taking Lasixdue to orthostatic hypotension. ECG (personally reviewed): Recent ECG demonstrated normal sinus rhythm without acute changes or evidence of recent infarct Cardiac Imaging Studies (personally reviewed): No recent cardiac imaging Physical Examination Review of Systems BP 118/70 (BP Location: Left arm, Patient Position: Sitting, Cuff Size: Adult Large) Pulse 81 Resp 16 Wt 137.6 kg (303 lb 6.4 oz) SpO2 93% BMI 41.15 kg/m?? Body mass index is 41.15 kg/m??. Wt Readings from Last 3 Encounters: 05/20/23 137.6 kg (303 lb 6.4 oz) 05/10/23 137.3 kg (302 lb 11.2 oz) 12/08/22 137 kg (302 lb) General Appearance: Awake, Alert, No acute distress. HEENT: No scleral icterus; the mucous membranes were pink and moist. Neck: No cervical bruits or jugular venous distention Chest: The spine was straight. The chest was symmetric. Lungs: Respirations unlabored; the lungs are clear to auscultation. No wheezing Cardiovascular: Regular rate and rhythm with occasional ectopic beat. S1, S2 normal. No murmur or gallop Abdomen: No organomegaly, masses, bruits, or tenderness. Bowels sounds are present Extremities: Velcro compression stockings over both lower extremities. Difficult to assess for edema. Skin: No xanthelasma. Warm, Dry. Musculoskeletal: No tenderness. Neurologic: Mood and affect are appropriate. Enc Vitals BP: 118/70 Pulse: 81 Resp: 16 SpO2: 93 % Weight: 137.6 kg (303 lb 6.4 oz) Medical History Surgical History Family History Social History Past Medical History: Diagnosis Date Allergic rhinitis Asthma Benign pigmented nevus Bilateral pulmonary embolism (H) 02/17/2016 Bipolar disorder (H) Chronic kidney disease Coronary atherosclerosis Created by [employer] [facility] Annotation: Mar 17 2007 12:01PM - [...] laparoscopic IR MISCELLANEOUS PROCEDURE 04/18/2007 LASIK Left AR CYSTOURETHROSCOPY,BIOPSY N/A 08/08/2018 Procedure: CYSTOSCOPY, BLADDER BIOPSY; Surgeon: Isaac Copeland MD; Location: [facility] OR; Service: Urology TOE SURGERY Bilateral great- metal in right Family History Problem Relation Age of Onset Heart Disease Mother Cerebrovascular Disease Mother Heart Disease Father Thyroid Cancer No family hx of Social History Socioeconomic History Marital status: Spouse [...] of Health Financial Resource Strain: Low Risk (02/15/2023) Financial Resource Strain Within the past 12 months, have you or your family members you live with been unable to get utilities (heat, electricity) when it was really needed?: No Food Insecurity: Low Risk (02/15/2023) Food Insecurity Within the past 12 months, did you worry that your food would run out before you got money to buy more?: No Within the past 12 months, did the food you bought just not last and you didn???t have money to getmore?: No Transportation Needs: High Risk (02/15/2023) Transportation Needs Within the past 12 months, [...] or ex-partner?: No Housing Stability: Low Risk (02/15/2023) Housing Stability Do you have housing? : Yes Are you worried about losing your housing?: No Medications Allergies Current Outpatient Medications Medication Sig [...] INTO EACH NOSTRIL DAILY 48 g 3 Nrccydifacn-Wmvrogblc-Ibiqsh (TRELEGY ELLIPTA) 100-62.5-25 MCG/ACT oral inhaler Inhale 1 puff into the lungs daily 60 each 11 ipratropium - albuterol 0.5 mg/2.5 mg/3 mL [...] mg) by mouth daily 90 tablet 2 metoprolol succinate ER (TOPROL XL) 50 MG 24 hr tablet TAKE 1 TABLET BY MOUTH DAILY 90 tablet 2 Multiple Vitamin (MULTIVITAMIN ADULT PO) Take 1 tablet by mouth daily nitroglycerin (NITROSTAT) 0.4 MG SL tablet [NITROGLYCERIN (NITROSTAT) 0.4 MG SL TABLET] PLACE 1 TABLET UNDER DONALDO TONGUE EVERY 5 MINUTES NEEDED FOR CHEST PAIN. 25 tablet 5 [place]-3 Fatty Acids (FISH OIL OMEGA-3 PO) Take [...] tablet 3 rosuvastatin (CRESTOR) 40 MG tablet TAKE 1 TABLET BY MOUTH DAILY 90 tablet 2 tamsulosin (FLOMAX) 0.4 MG capsule TAKE 1 CAPSULE BY MOUTH DAILY AFTER SUPPER 90 capsule 3 venlafaxine (EFFEXOR XR) 150 MG 24 hr capsule Take 2 tablets (150 mg) by mouth daily 60 capsule 3 Vitamin D3 (VITAMIN D, CHOLECALCIFEROL,) 25 mcg (1000 units) tablet Take 1 tablet by mouth daily furosemide (LASIX) 20 MG tablet TAKE ONE-HALF TABLET BY MOUTH DAILY (Patient not taking: Reported on 05/20/2023) 45 tablet 0 Allergies Allergen Reactions Oxycodone Itching and Rash Lab Results Chemistry/lipid CBC Cardiac Enzymes/BNP/TSH/INR Recent Labs Lab Test 12/08/22 1247 TRIG 148 LDL 69 BUN 17.0 NA 140 CO2 27 Recent Labs Lab Test 12/08/22 1247 WBC 4.9 HGB 14.6 HCT 44.8 MCV 95 PLT 186 Recent Labs Lab Test 12/08/22 1247 07/16/21 1549 01/28/19 1813 08/29/17 2209 BNP -- -- 25 -- TSH 1.23 < > -- -- INR -- -- -- 1.26* < > = values in this interval not displayed. A total of 35 minutes was spent reviewing patient's medical records, obtaining history and performing examination, as well as discussing diagnoses/ recommendations with patient and answering all questions. documented in this encounter Plan of Treatment Scheduled Orders Name Type Priority Associated Diagnoses Orde r Schedule NM MPI Treadmill Cardiac Nuclear Medicine Routine NAVAS (dyspnea on exertion) Coronary artery disease involving w[place] coronary artery of wampanoag heart, unspecified whether angina present Essential hypertension, benign Expected: 05/23/2023 (Approximate), Expires: 05/19/2024 documented as of this encounter Goals Goal [...] continue to work with my Weight Watcher's career coach and start attending their Webinars. 4. I will report progress towards this goal at outreach telephone calls from the [facility] team documented as of this encounter Visit Diagnoses Diagnosis NAVAS (dyspnea on exertion)- Primary Other dyspnea and respiratory abnormality Chest discomfort Other chest pain Coronary artery disease involving wamp[place] coronary artery of wampanoag heart, unspecified whether angina present Essential hypertension, benign Hypercholesterolemia Pure hypercholesterolemia Class 3 severe obesity due to excess calories with serious comorbidity and body mass index (BMI) of 40.0 to 44.9 in adult (H) documented in this encounter Additional Health Concerns Problem Noted Date Diagnosed Date HP GENERAL PROBLEM 11/13/2021 Assessment Noted Time PHQ-9 Depression Total Score: 7 12/09/19 23 11:14 AM CDT documented as of this encounter Care Teams Community Marketing Manager Relationship Specialty Start Date End Date Onesimo Bruno MD PCP - General 08/11/06 Bhavna Mac, Elio [address] [place] [address] Pharmacist Pharmacist 07/11/18 Isaac Bro, RN Lead Assistant To The President Primary Care - CC 09/01/18 Onesimo Bruno MD [facility] [place] [address] Assigned PCP 07/30/20 Rafita Ayers MD [address] [place] [address] Assigned Pulmonology Provider 10/12/20 Flo Henry MD [address] [address] Assigned Behavioral Health Provider 09/21/20 Jana Vick W Community Health Worker Primary Care - CC 06/08/21 Lorri Larsen MD [address] [place] [address] Otolaryngology 07/21/21 Rafita Ayers MD [address] [place] [address] Critical Care 11/30/21 Kaelyn New AuD [facility] [place] [address] Electronic Coils Supervisor Audiology 12/09/21 Marino Hayes MD [address] [place] [address] Cardiovascular Disease 09/28/22 aMrino Hayes MD [address] [place] [address] Assigned Heart and Vascular Provider 10/09/22 documented as of this encounter
--- OUTSIDE RECORDS SUMMARY | 2023-05-21 07:06 | XMS_ITS | Encounter Summary ---
Author Name Unknown Organization [facility] Address [address] [place] [address] Care Team Providers Care Oven Dauber Name Role Phone Onesimo Bruno MD Primary Care Provider [phone] Bhavna Mac PharmD Unavailable [phone] Isaac Bro RN Unavailable [phone] Onesimo Bruno MD Unavailable [phone] Rafita Ayers MD Unavailable [phone] Flo Henry MD Unavailable [phone] Jana Vick Vaibhav Unavailable Unavailabl Lorri Luo MD Unavailable [phone] Rafita Ayers MD Unavailable [phone] Kaelyn New Unavailable [phone] Marino Hayes MD Unavailable [phone] Marino Hayes MD Unavailable [phone] Reason for Visit * Reason Onset Date Comments Medication Question 05/16/2023 Encounter Details Date Type Department Care Team (Late st Contact Info) Description 05/16/2023 Telephone [facility] Care Coordination [address] [place] [phone] Isaac Bro RN Medication Question Social History Tobacco Use Types [...] encounter Miscellaneous Notes * Telephone Encounter - Yaneth Cameron RN - 05/17/2023 9:07 AM CDT Spoke with Roger and relayed recommendation from Dr. Bruno. Patient stated he is feeling significantly better today. Resuming foods that patient feels he can tolerate. No vomiting or diarrhea today. Hydration improving. However reporting still recovering. Did hour recommendation after symptoms resolving per CDC with norovirus. Did advise to contact cardiology regarding upcoming appointment with Cardiology and recent illness. Offered to send a message to PCP for any advisement if needed. Patient states they will contact Cardiology. No further questions. * Telephone Encounter - Onesimo Bruno MD - 05/16/2023 3:38 PM CDT Compazine or promethazine also have high risk of side effects. The chances of having issues with Zofran and venlafaxine are very low. He should continue to take his venlafaxine. He hopefully should not need the Zofran any longer because norovirus is usually a 24-hour bug. Hopefully the worst is over. * Telephone Encounter - Isaac Bro RN - 05/16/2023 3:25 PM CDT Shivam Bruno, I spoke with patient's Cordell today per his request. Cordell said patient was in ED today related to katie Norovirus. He was given Zofran while in the ED, which Cordell learned was contra-indicated with his venlafaxine. Roger had two doses of the Zofran today at 1 am and 11 am in the ED. Patient was discharged home. This afternoon, Cordell talked to the pharmacist at [facility], where he gets his medications, and was told Compazine or Promethazine have lower risk of a side effects. He is wondering if one of these could be ordered for patient. Cordell also wanted know when they could start his venlafaxine again. He did not take today's dose of venlafaxine, but Cordell is concerned patient may experience withdrawal symptoms. I also spoke with Roger briefly. He stated he was not having nausea currently. Please advise. Thank you, Vishnu Bro RN CCC RN documented in this encounter Plan of Treatment Not on file documented as of this encounter Goals Goal Patient Goal Type Associated Problems Recent Progress Patient-Stated? Author I would like to get into more healthy eating program to assist me with weight loss. Care Plan HP GENERAL PROBLEM 40%( 4 11:32 AM CDT) No Isaac Bro, RN [...] continue to work with my Weight Watcher's cheerleading coach and start attending their Webinars. 4. I will report progress towards this goal at outreach telephone calls from the [facility] team documented as of this encounter Visit Diagnoses Not on filedocumented in this encounter Additional Health Concerns Problem Noted Date Diagnosed Date HP GENERAL PROBLEM 11/13/2021 Assessment Noted Time PHQ-9 Depression Total Score: 7 12/09/19 23 11:14 AM CDT documented as of this encounter Care Teams Oven Dauber Relationship Specialty Start Date End Date Onesimo Bruno MD PCP - General 08/11/06 Bhavna Mac PharmD [address] [place] [address] Pharmacist Pharmacist 07/11/18 Isaac Bro, RN Lead Concrete Pile Driver Operator Primary Care - CC 09/01/18 Onesimo Bruno MD [address] [place] [address] Assigned PCP 07/30/20 Rafita Ayers MD [address] [place] [address] Assigned Pulmonology Provider 10/12/20 Flo Henry MD [address] [address] Assigned Behavioral Health Provider 09/21/20 Jana Vick, W Community Health Worker Primary Care - CC 06/08/21 Lorri Larsen MD [address] [place] [address] Otolaryngology 07/21/21 Rafita Ayers MD [address] [place] [address] Critical Care 11/30/21 Kaelyn New, AuD [facility] [place] [address] Manager Audiology 12/09/21 Marino Hayes MD [address] [place] [address] Cardiovascular Disease 09/28/22 Marino Hayes MD [address] [place] [address] Assigned Heart and Vascular Provider 10/09/22 documented as of this encounter
--- OUTSIDE RECORDS SUMMARY | 2023-05-21 07:06 | XMS_ITS | Encounter Summary ---
Author Name Unknown Organization [facility] Address [address] [place] [address] Care Team Providers Care Fueler Name Role Phone Onesimo Bruno MD Primary Care Provider [phone] Bhavna Mac PharmD Unavailable [phone] Isaac Bro RN Unavailable [phone] Onesimo Bruno MD Unavailable [phone] Rafita Ayers MD Unavailable [phone] Flo Henry MD Unavailable [phone] Jana Vick Vaibhav Unavailable Unavailabl Lorri Luo MD Unavailable [phone] Rafita Ayers MD Unavailable [phone] Kaelyn New Unavailable [phone] Marino Hayes MD Unavailable [phone] Marino Hayes MD Unavailable [phone] Reason for Visit * Reason Onset Date Comments [facility] Pulmonary Treatment Plan 0 05/16/2023 Encounter Details Date Type Department Care Team (Late st Contact Info) Description 05/16/2023 Telephone [facility] [address] [place] [phone] Onesimo Bruno MD [address] [place] [address] [facility] Pulmonary Treatment Plan Social History Tobacco Use Types Packs/Day Years [...] encounter Miscellaneous Notes * Telephone Encounter - Ani Flowers 05/19/2023 11:55 AM CDT May 19, 2023 Home health orders was picked up from outbox of Dr. Bruno. Paperwork has been reviewed and is complete. Per initial initial request, this was sent via fax to [phone]. Ani Flowers * Telephone Encounter - Chanda Calix - 05/16/2023 2:17 PM CDT May 16, 2023 [facility] Pulmonary Treatment Plan was received via fax for Dr. Bruno to sign. Patient label was attached to paperwork and placed in provider's inbox to be signed. Chanda Yogi documented in this encounter Plan of Treatment [...] continue to work with my Weight Watcher's swimming coach or instructor and start attending their Webinars. 4. I will report progress towards this goal at outreach telephone calls from the [facility] team documented as of this encounter Visit Diagnoses Not on filedocumented in this encounter Additional Health Concerns Problem Noted Date Diagnosed Date HP GENERAL PROBLEM 11/13/2021 Assessment Noted Time PHQ-9 Depression Total Score: 7 12/09/19 23 11:14 AM CDT documented as of this encounter Care Teams Fueler Relationship Specialty Start Date End Date Onesimo Bruno MD PCP - General 08/11/06 Bhavna Mac, PharmD [address] [place] [address] Pharmacist Pharmacist 07/11/18 Isaac Bro, RN Lead Postal Transportation Clerk Primary Care - CC 09/01/18 Onesimo Bruno MD [address] [place] [address] Assigned PCP 07/30/20 Rafita Ayers MD [address] [place] [address] Assigned Pulmonology Provider 10/12/20 Flo Henry MD [facility] [address] Assigned Behavioral Health Provider 09/21/20 Jana Vick, W Community Health Worker Primary Care - CC 06/08/21 Lorri Larsen MD [address] [place] [address] Otolaryngology 07/21/21 Rafita Ayers MD [address] [place] [address] Critical Care 11/30/21 Kaelyn New AuD [address] [place] [address] Auto Mechanic Supervisor Audiology 12/09/21 Marino Hayes MD [address] [place] [address] Cardiovascular Disease 09/28/22 Marino Hayes MD [address] [place] [address] Assigned Heart and Vascular Provider 10/09/22 documented as of this encounter
--- OUTSIDE RECORDS SUMMARY | 2023-05-21 07:06 | XMS_ITS | Encounter Summary ---
Author Name Unknown Organization [facility] Address [address] [place] [address] Care Team Providers Care Crop Picker Name Role Phone Onesimo Bruno MD Primary Care Provider [phone] Bhavna Mac PharmD Unavailable Isaac Bro RN Unavailable [phone] Onesimo Bruno MD Unavailable [phone] Rafita Ayers MD Unavailable +[phone] Flo Henry MD Unavailable +[phone] Jana Vick Unavailable Unavailabl Lorri Luo MD Unavailable +[phone] Rafita Ayers MD Unavailable +[phone] Kaelyn New Unavailable +[phone] Marino Hayes MD Unavailable [phone] Marino Hayes MD Unavailable [phone] Reason for Visit * Reason Comments Medication Refill Encounter Details Date Type Department Care Team (Late st Contact Info) Description 05/13/2023 Refill [facility] [address] [place] [phone] Onesimo Bruno MD [address] [place] [address] Medication Refill Social History Tobacco Use Types [...] as of this encounter Plan of Treatment Not on file documented as of this encounter Goals Goal Patient Goal Type Associated Problems Recent Progress Patient-Stated? Author I would like to get into more healthy eating program to assist me with weight loss. Care Plan HP GENERAL PROBLEM 40%(04/03/202 4 11:32 AM CDT) No Isaac Bro, [...] continue to work with my Weight Watcher's passenger coach driver and start attending their Webinars. 4. I will report progress towards this goal at outreach telephone calls from the [facility] team documented as of this encounter Visit Diagnoses Diagnosis CAD (coronary artery disease) Coronary atherosclerosis of unspecified type of vessel, eagle or graft Dyslipidemia Other and unspecified hyperlipidemia documented in this encounter Additional Health Concerns Problem Noted Date Diagnosed Date HP GENERAL PROBLEM 11/13/2021 Assessment Noted Time PHQ-9 Depression Total Score: 7 12/09/19 23 11:14 AM CDT documented as of this encounter Care Teams Crop Picker Relationship Specialty Start Date End Date Onesimo Bruno MD PCP - General 08/11/06 Bhavna Mac PharmD [address] [place] [address] Pharmacist Pharmacist 07/11/18 Isaac Bro, RN Lead Paving Crew Foreman Primary Care - CC 09/01/18 Onesimo Bruno MD [address] [place] [address] Assigned PCP 07/30/20 Rafita Ayers MD [address] [place], [place] 489165 Assigned Pulmonology Provider 10/12/20 Flo Henry MD [address] [place] [address] Assigned Behavioral Health Provider 09/21/20 Jana Vick, W Community Health Worker Primary Care - CC 06/08/21 Lorri Larsen MD [address] [place] [address] Otolaryngology 07/21/21 Rafita Ayers MD [address] [place] [address] Critical Care 11/30/21 Kaelyn New, Shena [address] [place] [address] Commercial Real Estate Manager Audiology 12/09/21 Marino Hayes MD [address] [place] [address] Cardiovascular Disease 09/28/22 Marino Hayes MD [address] [place] [address] Assigned Heart and Vascular Provider 10/09/22 documented as of this encounter
--- OUTSIDE RECORDS SUMMARY | 2023-05-21 07:06 | XMS_ITS | Encounter Summary ---
Author Name Unknown Organization [facility] Address [address] [place] [address] Care Team Providers Care Sales And Service Consultant Name Role Phone Onesimo Bruno MD Primary Care Provider [phone] Bhavna Mac PharmD Unavailable Isaac Bro RN Unavailable [phone] Onesimo Bruno MD Unavailable [phone] Rafita Ayers MD Unavailable +[phone] Flo Henry MD Unavailable [phone] Jana Vick Unavailable Unavailabl Lorri Luo MD Unavailable +[phone] Rafita Ayers MD Unavailable [phone] Kaelyn New Unavailable [phone] Marino Hayes MD Unavailable [phone] Marino Hayes MD Unavailable [phone] Reason for Visit * Reason Onset Date Comments medication interaction 05/16/2023 Encounter Details Date Type Department Care Team (Late st Contact Info) Description 05/16/2023 Telephone [facility] [address] [place] [phone] Onesimo Bruno MD [address] [place] [address] medication interaction Social History Tobacco Use Types Packs/Day Years [...] Encounter - Yaneth Cameron RN - 05/17/2023 7:52 AM CDT See telephone encounter 05/15 medication question for details and provider response. * Telephone Encounter - Mallory Carter. - 05/16/2023 2:13 PM CDT General Call Contacts Type Contact Phone/Fax 05/16/2023 02:12 PM CDT Phone (Incoming) Cordell Orosco (Emergency Contact) [phone] on consent to communicate Reason for Call: pt spouse has concerns What are your questions or concerns: 1- he was put on zofran when he was at ER at [facility] on 05/16/23 at 2am. They are concerned that is is interact with enlafaxine (EFFEXOR XR) 150 MG 24 hr capsule. Pharmacy told him to call. 2-He has a cardiology appt on Tuesday and wondering if that will be a problem to take the zofran.Patient is very ill and not sure they will be able to make it as well. Date of last appointment with provider: 05/10/23 Could we send this information to you in [employer] or would you prefer to receive a phone call?: Patient would prefer a phone call Okay to leave a detailed message?: Yes at Other phone number: [phone] documented in this encounter Plan of Treatment [...] continue to work with my Weight Watcher's volleyball coach and start attending their Webinars. 4. I will report progress towards this goal at outreach telephone calls from the [facility] team documented as of this encounter Visit Diagnoses Not on filedocumented in this encounter Additional Health Concerns Problem Noted Date Diagnosed Date HP GENERAL PROBLEM 11/13/2021 Assessment Noted Time PHQ-9 Depression Total Score: 7 12/09/19 23 11:14 AM CDT documented as of this encounter Care Teams Sales And Service Consultant Relationship Specialty Start Date End Date Onesimo Bruno MD PCP - General 08/11/06 Bhavna Mac, PharmD [address] [place] [address] Pharmacist Pharmacist 07/11/18 Isaac Bro, RN Lead Blueprint Developer Primary Care - CC 09/01/18 Onesimo Bruno MD [address] [place] [address] Assigned PCP 07/30/20 Rafita Ayers MD [address] [place] [address] 245795 Assigned Pulmonology Provider 10/12/20 Flo Henry MD [address] [place] [address] Assigned Behavioral Health Provider 09/21/20 Jana Vick CHW Community Health Worker Primary Care - CC 06/08/21 Lorri Larsen MD [address] [place] [address] Otolaryngology 07/21/21 Rafita Ayers MD [address] [place] [address] Critical Care 11/30/21 Kaelyn New AuD [address] [place] [address] Supervisor Tower Audiology 12/09/21 Marino Hayes MD [address] [place] [address] Cardiovascular Disease 09/28/22 Marino Hayes MD [address] [place] [address] Assigned Heart and Vascular Provider 10/09/22 documented as of this encounter
--- OUTSIDE RECORDS SUMMARY | 2023-05-21 07:06 | XMS_ITS | Encounter Summary ---
Author Name Unknown Organization [place] [facility] Address [address] [place] [address] Care Team Providers Care Cash Clerk Name Role Phone Onesimo Bruno MD Primary Care Provider [phone] Bhavna Mac PharmD Unavailable [phone] Isaac Bro RN Unavailable [phone] Onesimo Bruno MD Unavailable [phone] Rafita Ayers MD Unavailable [phone] Flo Henry MD Unavailable [phone] Jana Vick W Unavailable Unavailabl Lorri Luo MD Unavailable +[phone] Rafita Ayers MD Unavailable [phone] Kaelyn New Unavailable [phone] Marino Hayes MD Unavailable [phone] Marino Hayes MD Unavailable [phone] Reason for Visit * Reason Onset Date Comments Appointment 05/17/2023 Discuss 05/17 Appt Encounter Details Date Type Department Care Team (Late st Contact Info) Description 05/17/2023 Telephone [facility] [address] [place] [address] Nataliia Gomez MD [address] [facility], [address] [place] [address] Appointment (Discuss 05/17 Appt) Social History Tobacco Use Types Packs/Day Years [...] encounter Miscellaneous Notes * Telephone Encounter - Lyn Fuller RN - 05/18/2023 7:20 AM CDT Images from the original note were not included. [facility] rec'd 05-17-23 @ 5038: Nataliia Gomez MD Gorshe, Maureen, ANABELLA He may need a stress test but I guess I would rather assess him in clinic first before ordering. KML Response noted. mg * Telephone Encounter - Lyn Fuller RN - 05/17/2023 1:25 PM CDT Please review update r.e. resched follow-up to 4--24 due to recent Norovirus - any new orders at this time? mg * Telephone Encounter - Lyn Fuller RN - 05/17/2023 1:15 PM CDT Return call to patient who stated he came down with Norovirus yesterday - has not experienced any diarrhea or vomiting today and denies fever. Informed pt that changing visit to virtual would not be appropriate for yrly follow-up but update would be forwarded to Dr. Gomez. Patient explained that PCP recommended follow-up with Dr. Gomez at recent visit to determine need for any imaging due to c/o CP - informed pt that he could resched follow-up to 4--24 in [place] - pt accepted - reassured pt that update would also be forwarded for recommendations - pt agreed with plan - call transf to sched. mg * Telephone Encounter - George Verma - 05/17/2023 1:00 PM CDT [facility] Phone Message May a detailed message be left on voicemail: yes Reason for Call: Other: Roger called because he has an appt with Dr. Gomez tomorrow at 1:20 but Roger states he is getting over Norovirus and is feeling better today but wanted to be sure he could still come in to the clinic to be seen or if a virtual visit would be better. Please reach out to Roger to discuss. Thank you! Action Taken: Other: Cardiology Travel Screening: Not Applicable Thank you! [facility] documented in this encounter Plan of Treatment [...] continue to work with my Weight Watcher's head wrestling coach and start attending their Webinars. 4. [...] documented as of this encounter Care Teams Cash Clerk Relationship Specialty Start Date End Date Onesimo Bruno MD PCP - General 08/11/06 Bhavna Mac PharmD [address] [place] [address] Pharmacist Pharmacist 07/11/18 Isaac Bro, RN Lead Processor Grain Primary Care - CC 09/01/18 Onesimo Bruno MD [address] [place] [address] Assigned PCP 07/30/20 Rafita Ayers MD [address] [place] [address] Assigned Pulmonology Provider 10/12/20 Flo Henry MD [address] [address] Assigned Behavioral Health Provider 09/21/20 Jana Vick, W Community Health Worker Primary Care - CC 06/08/21 Lorri Larsen MD [address] [place] [address] Otolaryngology 07/21/21 Rafita Ayers MD [address] [place] [address] Critical Care 11/30/21 Kaelyn New, Shena [facility] [place] [address] Patient Centered Care Specialist Audiology 12/09/21 Marino Hayes MD [address] [place] [address] Cardiovascular Disease 09/28/22 Marino Hayes MD [address] [place] [address] Assigned Heart and Vascular Provider 10/09/22 documented as of this encounter
--- OUTSIDE RECORDS SUMMARY | 2023-05-21 07:06 | XMS_ITS | Encounter Summary ---
Author Name Unknown Organization [facility] Address [address] [place] [address] Care Team Providers Care Irrigation Specialist Name Role Phone Onesimo Bruno MD Primary Care Provider [phone] Bhavna Mac PharmD Unavailable [phone] Isaac Bro RN Unavailable [phone] Onesimo Bruno MD Unavailable [phone] Rafita Ayers MD Unavailable [phone] Flo Henry MD Unavailable [phone] Jana Vick CHW Unavailable Unavailabl Lorri Luo MD Unavailable [phone] Rafita Ayers MD Unavailable +[phone] Kaelyn Nwe AuD Unavailable [phone] Marnio Hayes MD Unavailable [phone] Marino Hayes MD Unavailable [phone] Encounter Details Date Type Department Care Team (Latest Contact Info) Description 05/17/2023 Travel Social History Tobacco Use Types Packs/Day [...] 40%( 4 11:32 AM CDT) No Isaac Bro RN [...] documented as of this encounter Care Teams Irrigation Specialist Relationship Specialty Start Date End Date Onesimo Bruno MD PCP - General 08/11/06 Bhavna Mac, Elio [address] [place] [address] Pharmacist Pharmacist 07/11/18 Isaac Bro, RN Lead River Boat Captain Primary Care - CC 09/01/18 Onesimo Bruno MD [address] [place] [address] Assigned PCP 07/30/20 Rafita Ayers MD [address] [place] [address] 238135 Assigned Pulmonology Provider 10/12/20 Flo Henry MD [facility] [address] [address] Assigned Behavioral Health Provider 09/21/20 Jana Vick CHW Community Health Worker Primary Care - CC 06/08/21 Lorri Larsen MD [address] [place] [address] 784825 Otolaryngology 07/21/21 Rafita Ayers MD [address] [place] [address] Critical Care 11/30/21 Kaelyn New AuD [address] [place] [address] Raisin Washer Audiology 12/09/21 Marino Hayes MD [address] [place] [address] 723115 Cardiovascular Disease 09/28/22 Marino Hayes MD [address] [place] [address] Assigned Heart and Vascular Provider 10/09/22 documented as of this encounter
--- OUTSIDE RECORDS SUMMARY | 2023-05-21 07:06 | XMS_ITS | Encounter Summary ---
Author Name Unknown Organization [facility] Address [address] [place] [address] Care Team Providers Care Airplane Fueler Name Role Phone Onesimo Bruno MD Primary Care Provider [phone] Bhavna Mac PharmD Unavailable [phone] Isaac Bro RN Unavailable [phone] Onesimo Bruno MD Unavailable [phone] Rafita Ayers MD Unavailable [phone] Flo Henry MD Unavailable [phone] Jana Vick CHW Unavailable Unavailabl Lorri Luo MD Unavailable [phone] Rafita Ayers MD Unavailable [phone] Kaelyn New AuD Unavailable [phone] Marino Hayes MD Unavailable [phone] Marino Hayes MD Unavailable [phone] Encounter Details Date Type Department Care Team (Latest Contact Info) Description 05/20/2023 Travel Social History Tobacco Use Types Packs/Day [...] continue to work with my Weight Watcher's onsite health coach and start attending their Webinars. 4. [...] documented as of this encounter Care Teams Airplane Fueler Relationship Specialty Start Date End Date Onesimo Bruno MD PCP - General 08/11/06 Bhavna Mac, Elio [address] [place] [address] Pharmacist Pharmacist 07/11/18 Isaac Bro, RN Lead Linting Machine Operator Primary Care - CC 09/01/18 Onesimo Bruno MD [address] [place] [address] Assigned PCP 07/30/20 Rafita Ayers MD [address] [place] [address] 391885 Assigned Pulmonology Provider 10/12/20 Flo Henry MD [facility] [address] [address] Assigned Behavioral Health Provider 09/21/20 Jana Vick CHW Community Health Worker Primary Care - CC 06/08/21 Lorri Larsen MD [address] [place] [address] 587235 Otolaryngology 07/21/21 Rafita Ayers MD [address] [place] [address] Critical Care 11/30/21 Kaelyn New AuD [address] [place] [address] Laboratory Director Audiology 12/09/21 Marino Hayes MD [address] [place] [address] 773925 Cardiovascular Disease 09/28/22 Marino Hayes MD [address] [place] [address] Assigned Heart and Vascular Provider 10/09/22 documented as of this encounter
--- OUTSIDE RECORDS SUMMARY | 2023-05-21 07:06 | XMS_ITS | Encounter Summary ---
Author Name Unknown Organization [facility] Address [address] [place] [address] Care Team Providers Care Geographic Information Systems Analyst Name Role Phone Onesimo Bruno MD Primary Care Provider [phone] Bhavna Mac PharmD Unavailable [phone] Isaac Bro RN Unavailable [phone] Onesimo Bruno MD Unavailable [phone] Rafita Ayers MD Unavailable [phone] Flo Henry MD Unavailable [phone] Jana Vick Vaibhav Unavailable Unavailabl Lorri Luo MD Unavailable [phone] Rafita Ayers MD Unavailable [phone] Kaelyn New Unavailable [phone] Marino Hayes MD Unavailable [phone] Marino Hayes MD Unavailable [phone] Reason for Visit * Reason Comments Medication Refill Encounter Details Date Type Department Care Team (Late st Contact Info) Description 05/20/2023 [facility] [address] [facility] [address] [place] [phone] Nataliia Gomez MD [address] [facility], [address] [place] [address] Medication Refill Social History Tobacco [...] continue to work with my Weight Watcher's diving coach and start attending their Webinars. 4. I will report progress towards this goal at outreach telephone calls from the [facility] team documented as of this encounter Visit Diagnoses Diagnosis Elevated brain natriuretic peptide (BNP) level Other nonspecific findings on examination of blood documented in this encounter Additional Health Concerns Problem Noted Date Diagnosed Date HP GENERAL PROBLEM 11/13/2021 Assessment Noted Time PHQ-9 Depression Total Score: 7 12/09/19 23 11:14 AM CDT documented as of this encounter Care Teams Geographic Information Systems Analyst Relationship Specialty Start Date End Date Onesimo Bruno MD PCP - General 08/11/06 Bhavna Mac, GenesisD [address] [place] [address] Pharmacist Pharmacist 07/11/18 Isaac Bro, RN Lead Motor And Generator Brush Maker Primary Care - CC 09/01/18 Onesimo Bruno MD [address]0 [place] [address] Assigned PCP 07/30/20 Rafita Ayers MD [address] [place] [address] Assigned Pulmonology Provider 10/12/20 Flo Henry MD [facility] [address] [address] Assigned Behavioral Health Provider 09/21/20 Jana Vick, W Community Health Worker Primary Care - CC 06/08/21 Lorri Larsen MD 9 [place] [address] Otolaryngology 07/21/21 Rafita Ayers MD [address] [place] [address] Critical Care 11/30/21 Kaelyn New AuD [address] [place] [address] Licensed Massage Therapist Audiology 12/09/21 Marino Hayes MD [address] [place] [address] Cardiovascular Disease 09/28/22 Marino Hayes MD [address] [place] [address] Assigned Heart and Vascular Provider 10/09/22 documented as of this encounter
--- OUTSIDE RECORDS SUMMARY | 2023-05-21 07:07 | XMS_ITS | Encounter Summary ---
Author Name Unknown Organization [place] [facility] Address [address] [place] [address] Care Team Providers Care House Repairer Name Role Phone Johana Bruno MD Primary Care Provider [phone] Bhavna Mac PharmD Unavailable [phone] Isaac Bro RN Unavailable [phone] Johana Bruno MD Unavailable Rafita Ayers MD Unavailable [phone] Flo Henry MD Unavailable [phone] Jana Vick CHW Unavailable Unavailabl e Lorri Larsen MD Unavailable [phone] Lorri Larsen MD Unavailable [phone] Rafita Ayers MD Unavailable [phone] Kaelyn New Unavailable [phone] Marino Hayes MD Unavailable + [phone] Marino Hayes MD Unavailable + [phone] Reason for Visit * Reason Comments Acute bronchitis Follow up - pt repor ts that he's improving but still has some intermittent cough and generalize fatigue Refill Request Discuss possible ref ill on T3 if PCP feels this is warrant Encounter Details Date Type Department Care Team (Late st Contact Info) Description 03/09/2023 12:20 PM PROGRAM DIRECTOR AIR TALENT Virtual Visit [address] [place] [address] Johana Bruno MD [address] [place] [address] Acute bronchitis due to respiratory syncytial virus (RSV) (Primary Dx); Exacerbation of asthma, unspecified asthma severity, unspecified whether persistent Social History Tobacco Use Types Packs/Day Years [...] as of this encounter Progress Notes * Johana Bruno MD - 03/09/2023 12:20 PM CST Roger is a 72 year old who is being evaluated via a billable video visit. How would you like to obtain your AVS? MyChart If the video visit is dropped, the invitation should be resent by: Send to e- mail at: [email or web address] Will anyone else be joining your video visit? Yes: Maybe Cordell. How would they like to receive theirinvitation? Send to e-mail at: [email or web address] 1. Acute bronchitis due to respiratory syncytial virus (RSV) He is making a nice recovery. I have urged him to start getting more active and start heading back to pulmonary rehab next week. I urged him against refilling the Tylenol 3 at this time. 2. Exacerbation of asthma, unspecified asthma severity, unspecified whether persistent As above. Continue current regimen for now. I will see him back in 3 months for regular follow-up. Subjective Roger is a 72 year old, presenting for the following health issues: Acute bronchitis (Follow up - pt reports that he's improving but still has some intermittent cough and generalize fatigue ) and Refill Request (Discuss possible refill on T3 if PCP feels this is warrant ) 03/09/2023 11:24 AM Additional Questions Roomed by MANUEL Machuca Accompanied by Cordell - spouse HPI Roger joins me on a video visit for follow-up of his RSV. He is getting better. He wonders if he should have refills of his Tylenol 3. He got through the night though without any cough he tells me. He has not been out of the house and has not been back to pulmonary rehab. Is getting his strength back and he is appetite is coming back as well. Objective Vitals: No vitals were obtained today due to virtual visit. Physical Exam He looks well with no cough during interview. Video-Visit Details Type of service: Video Visit Video Start Time: 1222 Video End Time:1232 Originating Location (pt. Location): Home Distant Location (provider location): On-site Platform used for Video Visit: Rusty Signed Electronically by: JOHANA BRUNO MD RAM DIRECTOR AIR TALENT * Sanket Hillman - 03/09/2023 12:20 PM CST 03/14 I called and scheduled Roger with [facility] for May 18 RAM DIRECTOR AIR TALENT documented in this encounter Plan of Treatment [...] continue to work with my Weight Watcher's motor coach supervisor and start attending their Webinars. 4. I will report progress towards this goal at outreach telephone calls from the [facility] team documented as of this encounter Visit Diagnoses Diagnosis Acute bronchitis due to respiratory syncytial virus (RSV)- Primary Exacerbation of asthma, unspecified asthma severity, unspecified whether persistent documented in this encounter Additional Health Concerns Problem Noted Date Diagnosed Date HP GENERAL PROBLEM 11/13/2021 Assessment Noted Time PHQ-9 Depression Total Score: 7 12/09/19 23 11:14 AM CDT documented as of this encounter Care Teams House Repairer Relationship Specialty Start Date End Date Johana Bruno MD PCP - General 08/11/06 Bhavna Mac, Elio [address] [place] [address] Pharmacist Pharmacist 07/11/18 Isaac Bro, RN Lead Cut Press Operator Primary Care - CC 09/01/18 Johana Bruno MD [address] [place] [address] Assigned PCP 07/30/20 Rafita Ayers MD [address] [place] [address] Assigned Pulmonology Provider 10/12/20 Flo Henry MD [address] [address] Assigned Behavioral Health Provider 09/21/20 Jana Vick [facility] Community Health Worker Primary Care - CC 06/08/21 Lorri Larsen MD [address] [place] [address] Otolaryngology 07/21/21 Lorri Larsen MD [address] [place] [address] Assigned Surgical Provider 10/10/21 04/28/23 Rafita Ayers MD [address] [place] [address] Critical Care 11/30/21 Kaelyn New AuD [address] [place] [address] Farm Machine Operator Audiology 12/09/21 [place] [address] Cardiovascular Disease 09/28/22 Marino Hayes MD [address] [place] [address] Assigned Heart and Vascular Provider 10/09/22 documented as of this encounter
--- OUTSIDE RECORDS SUMMARY | 2023-05-21 07:07 | XMS_ITS | Encounter Summary ---
Author Name Unknown Organization [facility] Address [address] [place] [address] Care Team Providers Care Die Hardener Name Role Phone Onesimo Bruno MD Primary Care Provider [phone] Bhavna Mac PharmD Unavailable [phone] Isaac Bro RN Unavailable [phone] Onesimo Bruno MD Unavailable [phone] Rafita Ayers MD Unavailable +[phone] Flo Henry MD Unavailable [phone] Jana Vick W Unavailable Unavailabl e Lorri Larsen MD Unavailable +[phone] Lorri Larsen MD Unavailable +[phone] Rafita Ayers MD Unavailable +[phone] Kaelyn New Unavailable +[phone] Marino Hayes MD Unavailable + [phone] Marino Hayes MD Unavailable + [phone] Encounter Details Date Type Department Care Team (Late st Contact Info) Description 03/01/2023 Telephone [facility] [address] [place] [phone] Onesimo Bruno MD [address]0 [place] [address] Social History Tobacco Use Types Packs/Day Years [...] encounter Miscellaneous Notes * Telephone Encounter - Tania Vieira RN - 03/01/2023 10:40 AM CST Spoke with medical records to get most recent [facility] ED records. ([phone]) Fax number given and records to be sent today [place] SPECIALIST documented in this encounter Plan of Treatment [...] continue to work with my Weight Watcher's girls swimming coach and start attending their Webinars. 4. [...] documented as of this encounter Care Teams Die Hardener Relationship Specialty Start Date End Date Onesimo Bruno MD PCP - General 08/11/06 Bhavna Mac, Elio [address] [place] [address] Pharmacist Pharmacist 07/11/18 Isaac Bro, RN Lead Child Development Specialist Primary Care - CC 09/01/18 Onesimo Bruno MD [address] [place] [address] Assigned PCP 07/30/20 Rafita Ayers MD [address] [place] [address] Assigned Pulmonology Provider 10/12/20 Flo Henry MD [address] [address] Assigned Behavioral Health Provider 09/21/20 Jana Vick, W Community Health Worker Primary Care - CC 06/08/21 Lorri Larsen MD [address] [place] [address] Otolaryngology 07/21/21 Lorri Larsen MD [address] [place] [address] Assigned Surgical Provider 10/10/21 04/28/23 Rafita Ayers MD [address] [place] [address] Critical Care 11/30/21 Kaelyn New, Shena [facility] [place] [address] Zoning Engineer Audiology 12/09/21 Marino Hayes MD [address] [place] [address] [phone] Cardiovascular Disease 09/28/22 Marino Hayes MD [address] [place] [address] [phone] Assigned Heart and Vascular Provider 10/09/22 documented as of this encounter
--- OUTSIDE RECORDS SUMMARY | 2023-05-21 07:07 | XMS_ITS | Encounter Summary ---
Author Name Unknown Organization [facility] Address [address] [place] [address] Care Team Providers Care Paid Search Marketing Strategist Name Role Phone Onesimo Bruno MD Primary Care Provider [phone] Bhavna Mac PharmD Unavailable [phone] Isaac Bro RN Unavailable [phone] Onesimo Bruno MD Unavailable [phone] Rafita Ayers MD Unavailable [phone] Flo Henry MD Unavailable [phone] Jana Vick CHW Unavailable Unavailabl e Lorri Larsen MD Unavailable +[phone] Lorri Larsen MD Unavailable [phone] Rafita Ayers MD Unavailable +[phone] Kaelyn New Unavailable +[phone] Marino Hayes MD Unavailable + [phone] Marino Hayes MD Unavailable + [phone] Encounter Details Date Type Department Care Team (Late st Contact Info) Description 03/02/2023 Telephone [facility] [place] [address] [place] [phone] Flo Henry MD [address] [phone] Social History Tobacco Use Types Packs/Day Years [...] continue to work with my Weight Watcher's job coaching and start attending their Webinars. 4. I will report progress towards this goal at outreach telephone calls from the [facility] team documented as of this encounter Visit Diagnoses Not on filedocumented in this encounter Additional Health Concerns Problem Noted Date Diagnosed Date HP GENERAL PROBLEM 11/13/2021 Assessment Noted Time PHQ-9 Depression Total Score: 7 12/09/19 23 11:14 AM CDT documented as of this encounter Care Teams Paid Search Marketing Strategist Relationship Specialty Start Date End Date Onesimo Bruno MD PCP - General 08/11/06 Bhavna Mac, GenesisD [address] [place] [address] Pharmacist Pharmacist 07/11/18 Isaac Bro, RN Lead Spin Instructor Primary Care - CC 09/01/18 Onesimo Bruno MD 1390 [place] [address] Assigned PCP 07/30/20 Rafita Ayers MD [address] [place] [address] Assigned Pulmonology Provider 10/12/20 Flo Henry MD [facility] [address] [address] Assigned Behavioral Health Provider 09/21/20 Jana Vick, W Community Health Worker Primary Care - CC 06/08/21 Lorri Larsen MD [address] [place] [address] Otolaryngology 07/21/21 Lorri Larsen MD [address] [place] [address] Assigned Surgical Provider 10/10/21 04/28/23 Rafita Ayers MD [address] [place] [address] Critical Care 11/30/21 Kaelyn New, Shena [address] [place] [address] Remote Operations Producer Audiology 12/09/21 Marino Hayes MD [address] [place] [address] Cardiovascular Disease 09/28/22 Marino Hayes MD [address] [place] [address] Assigned Heart and Vascular Provider 10/09/22 documented as of this encounter
--- OUTSIDE RECORDS SUMMARY | 2023-05-21 07:07 | XMS_ITS | Encounter Summary ---
Author Name Unknown Organization [facility] Address [address] [place] [address] Care Team Providers Care Volunteer Services Manager Name Role Phone Onesimo Bruno MD Primary Care Provider [phone] Bhavna Mac PharmD Unavailable [phone] Isaac Bro RN Unavailable [phone] Onesimo Bruno MD Unavailable [phone] Rafita Ayers MD Unavailable [phone] Flo Henry MD Unavailable [phone] Jana Vick CHW Unavailable Unavailabl e Lorri Larsen MD Unavailable [phone] Lorri Larsen MD Unavailable [phone] Rafita Ayers MD Unavailable [phone] Kaelyn New Unavailable [phone] Marino Hayes MD Unavailable + [phone] Marino Hayes MD Unavailable + [phone] Encounter Details Date Type Department Care Team (Late st Contact Info) Description 04/05/2023 11:30 AM IAP DISPLAYS ANALYST Virtual Visit [facility] [address] [place] [address] Keke Brooks, RD 420 [facility] 84 [place] [address] Stage 3 chronic kidney disease, unspecified whether stage 3a or 3b CKD (H) (Primary Dx); Essential hypertension, benign; Hypercholesterolemia ; Nutritional counseling; Class 3 severe obesity due [...] Progress Notes * Keke Brooks, RD - 04/05/2023 11:30 AM CST Images from the original note were not included. Roger Luong is a 72 year old who is being evaluated via a billable video visit. How would you like to obtain your AVS? MyChart If the video visit is dropped, the invitation should be resent by: Send to e- mail at: [email or web address] Will anyone else be joining your video visit? No Medical Weight Loss Follow-Up Diet Evaluation Assessment: Roger is presenting today for a follow up weight management nutrition consultation. This patient has had an initial appointment and was referred by Dr. Day for MNT as treatment for Obesity which is impacting his CKD, CAD. Weight loss medication: None . Pt's weight is 296-299 lbs (fluctuating more recently) No data to display BMI: There is no height or weight on file to calculate BMI. 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 Really working on hydration these past few weeks due to RSV. Patient reports that he has been trying to cook more from home, however had been eating out on occasion as well, noting that he is trying to eat smaller portions. Patient reports that he has been making an effort to incorporate more fruit into his diet. Patient reports that they have been playing around with tofu more recently for an additional protein source. Exercise: Cardac Rehab-just restarted after RSV this past week Nutrition Diagnosis: Obesity (NC 3.3) related to overeating and poor lifestyle habits as evidenced by patient's subjective statements and BMI 40.6 kg/m2. Intervention: Food and/or nutrient delivery: balanced meals, adequate protein Nutrition education: none Nutrition counseling: provided support and encouragement Monitoring/Evaluation: Goals: Weight Loss goal of 10 lbs within the next 3 months. Start tracking intake via food journal for accountability. Patient to follow up in 3 month(s) with RD Video-Visit Details Type of service: Video Visit Video Start Time (time video started): 11:25 AM Video End Time (time video stopped): 11:59 AM Originating Location (pt. Location): Home Distant Location (provider location): Off-site Mode of Communication: Video Conference via [facility] Physician has received verbal consent for a Video Visit from the patient? Yes Keke Brooks RD DISPLAYS ANALYST documented in this encounter Plan of Treatment [...] continue to work with my Weight Watcher's assistant strength coach and start attending their Webinars. 4. I will report progress towards this goal at outreach telephone calls from the [facility] team documented as of this encounter Visit Diagnoses Diagnosis Stage 3 chronic kidney disease, unspecified whether stage 3a or 3b CKD (H)- Primary Essential hypertension, benign Hypercholesterolemia Pure hypercholesterolemia Nutritional counseling Class 3 severe obesity due to excess calories with serious comorbidity and body mass index (BMI) of 40.0 to 44.9 in adult (H) documented in this encounter Additional Health Concerns Problem Noted Date Diagnosed Date HP GENERAL PROBLEM 11/13/2021 Assessment Noted Time PHQ-9 Depression Total Score: 7 12/09/19 23 11:14 AM CDT documented as of this encounter Care Teams Volunteer Services Manager Relationship Specialty Start Date End Date Onesimo Bruno MD PCP - General 08/11/06 Bhavna Mac, GenesisD [address] [place] [address] Pharmacist Pharmacist 07/11/18 Isaac Bro, RN Lead Power Bender Operator Primary Care - CC 09/01/18 Onesimo Bruno MD 1390 [place] [address] Assigned PCP 07/30/20 Rafita Ayers MD [address] [place] [address] 689125 Assigned Pulmonology Provider 10/12/20 Flo Henry MD [facility] [address] [address] Assigned Behavioral Health Provider 09/21/20 Jana Vick W Community Health Worker Primary Care - CC 06/08/21 Lorri Larsen MD [address] [place] [address] Otolaryngology 07/21/21 Lorri Larsen MD 9 [place] [address] Assigned Surgical Provider 10/10/21 04/28/23 Rafita Ayers MD 9 [place] [address] Critical Care 11/30/21 Kaelyn New AuD [address] [place] [address] Technical Support Director Audiology 12/09/21 Marino Hayes MD [address] [place] [address] Cardiovascular Disease 09/28/22 Marino Hayes MD [address] [place] [address] Assigned Heart and Vascular Provider 10/09/22 documented as of this encounter
--- OUTSIDE RECORDS SUMMARY | 2023-05-21 07:07 | XMS_ITS | Encounter Summary ---
Author Name Unknown Organization [facility] Address [address] [place] [address] Care Team Providers Care Acute Care Clinical Nurse Specialist Name Role Phone Onesimo Bruno MD Primary Care Provider [phone] Bhavna Mac PharmD Unavailable [phone] Isaac Bro RN Unavailable [phone] Onesimo Bruno MD Unavailable [phone] Rafita Ayers MD Unavailable [phone] Flo Henry MD Unavailable [phone] Jana Vick W Unavailable Unavailabl Lorri Luo MD Unavailable [phone] Lorri Larsen MD Unavailable [phone] Rafita Ayers MD Unavailable [phone] Kaelyn New Unavailable [phone] Marino Hayes MD Unavailable + [phone] Marino Hayes MD Unavailable + [phone] Reason for Visit * Reason Onset Date Comments [facility] Pul Rehab Encounter Details Date Type Department Care Team (Late st Contact Info) Description 02/23/2023 [facility] [address] [place] [address] Onesimo Bruno MD 1390 [place] [address] [facility] Pul Rehab Social History Tobacco Use Types Packs/Day Years Used Date Smoking Tobacco: Never Smokeless Tobacco: Never Alcohol Use Standard Drinks/Week Comments No 0 (1 standard drink = 0.6 oz pur e alcohol) PHQ-2 Answer Date Recorded PHQ-2 Score 6 12/16/2022 Adolescent Education Answer Date Record ed Getting [...] Notes * Telephone Encounter - Chanda Calix 02/25/2023 8:40 AM CST February 25, 2023 [facility] Pulmonary Rehab was picked up from outbox of Dr. Bruno. Paperwork has been reviewed and is complete. Per initial initial request, this was sent via fax to [phone]. Chanda Calix ESTATE LOAN OFFICER * Telephone Encounter - Chanda Calix - 02/23/2023 11:43 AM CST February 23, 2023 [facility] Pulm Rehab was received via fax for Dr. Bruno to sign. Patient label was attached to paperwork and placed in provider's inbox to be signed. Chanda Calix ESTATE LOAN OFFICER documented in this encounter Plan of Treatment [...] to work with my Weight Watcher's head strength and conditioning coach and start attending their Webinars. 4. I will report progress towards this goal at outreach telephone calls from the [facility] team documented as of this encounter Visit Diagnoses Not on filedocumented in this encounter Additional Health Concerns Problem Noted Date Diagnosed Date HP GENERAL PROBLEM 11/13/2021 Assessment Noted Time PHQ-9 Depression Total Score: 7 12/09/19 23 11:14 AM CDT documented as of this encounter Care Teams Acute Care Clinical Nurse Specialist Relationship Specialty Start Date End Date Onesimo Bruno MD PCP - General 08/11/06 Bhavna Mac, GenesisD [address] [place] [address] Pharmacist Pharmacist 07/11/18 Isaac Bro, RN Lead Radiator Mechanic Primary Care - CC 09/01/18 Onesimo Bruno MD [address]0 [place] [address] Assigned PCP 07/30/20 Rafita Ayers MD [address] [place] [address] Assigned Pulmonology Provider 10/12/20 Flo Henry MD [address] [place] [address] Assigned Behavioral Health Provider 09/21/20 Jana Vick, W Community Health Worker Primary Care - CC 06/08/21 Lorri Larsen MD [address] [place] [address] Otolaryngology 07/21/21 Lorri Larsen MD [address] [place] [address] Assigned Surgical Provider 10/10/21 04/28/23 Rafita Ayers MD [address] [place] [address] Critical Care 11/30/21 Kaelyn New AuD [address] [place] [address] [employer] Truck Driver Audiology 12/09/21 Marino Hayes MD [address] [place] [address] 952985 Cardiovascular Disease 09/28/22 Marino Hayes MD [address] [place] [address] 099045 Assigned Heart and Vascular Provider 10/09/22 documented as of this encounter
--- OUTSIDE RECORDS SUMMARY | 2023-05-21 07:07 | XMS_ITS | Encounter Summary ---
Author Name Unknown Organization [facility] Address [address] [place] [address] Care Team Providers Care Occupational Therapy Manager Name Role Phone Johana Bruno MD Primary Care Provider [phone] Bhavna Mac PharmD Unavailable [phone] Isaac Bro RN Unavailable [phone] Johana Bruno MD Unavailable [phone] Rafita Ayers MD Unavailable [phone] Flo Henry MD Unavailable [phone] Jana Vick Vaibhav Unavailable Unavailabl Lorri Luo MD Unavailable [phone] Rafita Ayers MD Unavailable [phone] Kaelyn New Unavailable [phone] Marino Hayes MD Unavailable [phone] Marino Hayes MD Unavailable + [phone] Reason for Visit * Reason Comments Recheck Medication Follow Up Cardiac follow up Encounter Details Date Type Department Care Team (Late st Contact Info) Description 05/10/2023 2:20 PM CDT Office Visit [facility] [address] [place] [address] Johana Bruno MD [address]0 [place] [address] Exertional angina (Primary Dx); NAVAS (dyspnea on exertion); Atherosclerosis of [place] coronary artery of [place] heart, unspecified whether angina present; Moderate persistent asthma without complication; Orthostatic hypotension Social History Tobacco Use Types Packs/Day Years [...] Sign Reading Time Taken Comments Blood Pressure 132/80 05/10/2023 2:18 PM CDT Pulse 86 05/10/2023 2:18 PM CDT Temperature 36.5 ??C (97.7 ??F) 05/10/2023 2:18 PM CD T Respiratory Rate 17 05/10/2023 2:18 PM CDT Oxygen Saturation 97% 05/10/2023 2:18 PM CDT Inhaled Oxygen Concentration - - Weight 137.3 kg (302 lb 11.2 oz) 05/10/2023 2:18 PM CDT Height 182.9 cm (6') 05/10/2023 2:18 PM CDT Body Mass Index 41.05 05/10/2023 2:18 PM CDT documented in this encounter Patient Instructions * Patient Instructions* Johana Bruno MD - 05/10/2023 2:20 PM CDT Hold your furosemide until you see Dr. Gomez next week. Con't all other meds until then. Do not do heavy exertion until you see Dr. Gomez. documented in this encounter Progress Notes * Johana Bruno MD - 05/10/2023 2:20 PM CDT 1. Exertional angina I am concerned about exertional angina equivalent here. I have asked that he continue his current regimen and see Dr. Gomez next week as planned. - EKG 12-lead, tracing only 2. NAVAS (dyspnea on exertion) As above. - EKG 12-lead, tracing only 3. Atherosclerosis of [place] coronary artery of [place] heart, unspecified whether angina present As above. EKG today shows no evidence of ischemia or recent infarct. - EKG 12-lead, tracing only 4. Moderate persistent asthma without complication Continue the same inhalers for now 5. Orthostatic hypotension Will go ahead and hold his very low-dose furosemide. No recent heart failure and normal EF. See if this helps his orthostatic symptoms. Daysi Duran is a 72 year old, presenting for the following health issues: Recheck Medication and Follow Up (Cardiac follow up) 05/10/2023 2:17 PM Additional Questions Roomed by alfredo p History of Present Illness Reason for visit: Cardiac follow up Symptom onset: More than a month Symptoms include: Atrm pain Symptom intensity: Moderate Symptom progression: Improving Had these symptoms before: No What makes it worse: Na What makes it better: Na He eats 2-3 servings of fruits and vegetables daily.He consumes 0 sweetened beverage(s) daily.He exercises with enough effort to increase his heart rate 10 to 19 minutes per day. He exercises with enough effort to increase his heart rate 3 or less days per week. He is taking medications regularly. Roger is a very complicated 72-year-old gentleman with known coronary disease and severe asthma who comes in today for follow-up. A week ago he was walking very briskly to the dentist and he developed severe shortness of breath associated with pain in his arm shoulder and shoulder blade. Concern was for angina. Apparently he looked pretty rough once he got to the dentist. They had to lay him down. He was very short of breath. He thinks he was wheezing as well quite a bit at this time. He hashad no subsequent discomfort in his chest. He is breathing better after the snow he tells me with no wheezing. He is taking his medications as prescribed. He does feel orthostatic and wants to come off of his furosemide. He has normal EF on all of his recent cardiac imaging Objective BP 132/80 (BP Location: Left arm, Patient Position: Sitting, Cuff Size: Adult Large) Pulse 86 Temp 97.7 ??F (36.5 ??C) Resp 17 Ht 1.829 m (6') Wt 137.3 kg (302 lb 11.2 oz) SpO2 97% BMI 41.05 kg/m?? Body mass index is 41.05 kg/m??. Physical Exam Pleasant obese gentleman. Heart is regular. Lungs are clear with no wheezes or crackles. Signed Electronically by: JOHANA BRUNO MD documented in this encounter Plan of [...] at outreach telephone calls from the [facility] team documented as of this encounter Procedures Procedure Name Priority Date/Time Associated Diagnosis Comments EKG 12-LEAD, TRACING ONLY Routine 05/10/2023 2:40 PM CDT Exertional angina NAVAS (dyspnea on exertion) Atherosclerosis of [place] coronary artery of [place] heart, unspecified whether angina present documented in this encounter Results * EKG 12-lead, tracing only (05/10/2023 2:40 PM CDT) Systolic Blood Pressure mmHg RADIOLOGY RESULTS Diastolic Blood Pressure mmHg RADIOLOGY RESULTS Ventricular Rate 75 BPM RAD IOLOGY RESULTS Atrial Rate 75 BPM RADIOLOG Y RESULTS IN Interval 180 ms RADIOLOG Y RESULTS QRS Duration 92 ms RADIOLO GY RESULTS QT 354 ms RADIOLOGY RESULTS QTc 395 ms RADIOLOGY RESULTS P [place] 24 degrees RADIOLOGY RESULTS R AXIS 41 degrees RADIOLOGY RESULTS T [place] 38 degrees RADIOLOGY RESULTS Interpretation ECG Sinus rhythm Normal ECG When compared with ECG of 16-SEP-2022 08:43, Premature ventricular complexes are no longer Present Confirmed by CHEMO ??, LES LOC:LICO ([id number]) on 05/10/2023 4:19:45 PM RADIOLOGY RESULTS 05/10/2023 2:40 PM CDT 05/10/2023 4:19 PM CDT Johana Bruno MD ECG ORDERABLES RADIOLOGY RESULTS documented in this encounter Visit Diagnoses Diagnosis Exertional angina (H24)- Primary Other and unspecified angina pectoris NAVAS (dyspnea on exertion) Other dyspnea and respiratory abnormality Atherosclerosis of [place] coronary artery of [place] heart, unspecified whether angina present Moderate persistent asthma without complication Unspecified asthma Orthostatic hypotension documented in this encounter Additional Health Concerns Problem Noted Date Diagnosed Date HP GENERAL PROBLEM 11/13/2021 Assessment Noted Time PHQ-9 Depression Total Score: 7 12/09/19 23 11:14 AM CDT documented as of this encounter Care Teams Occupational Therapy Manager Relationship Specialty Start Date End Date Johana Bruno MD PCP - General 08/11/06 Bhavna Mac, PharmD [address] [place] [address] Pharmacist Pharmacist 07/11/18 Isaac Bro, RN Lead Radial Drill Press Operator Primary Care - CC 09/01/18 Johana Bruno MD [address] [place] [address] Assigned PCP 07/30/20 Rafita Ayers MD [address] [place] [address] [phone] Assigned Pulmonology Provider 10/12/20 Flo Henry MD [address] [place] [address] Assigned Behavioral Health Provider 09/21/20 Jana Vick Vaibhav Community Health Worker Primary Care - CC 06/08/21 Lorri Larsen MD [address] [place] [address] 909475 Otolaryngology 07/21/21 Rafita Ayers MD [address] [place] [address] 874545 Critical Care 11/30/21 Kaelyn New AuD [address] [place] [address] Middleware Developer Audiology 12/09/21 Marino Hayes MD [address] [place] [address] Cardiovascular Disease 09/28/22 Marino Hayes MD [address] [place] [address] 090205 Assigned Heart and Vascular Provider 10/09/22 documented as of this encounter
--- OUTSIDE RECORDS SUMMARY | 2023-05-21 07:07 | XMS_ITS | Encounter Summary ---
Author Name Unknown Organization [place] Address [address] [place] [address] Care Team Providers Care Grinder Set Up Operator Thread Name Role Phone Onesimo Bruno MD Primary Care Provider Bhavna Mac PharmD Unavailable [phone] Isaac Bro RN Unavailable [phone] Onesimo Bruno MD Unavailable [phone] Rafita Ayers MD Unavailable [phone] Flo Henry MD Unavailable [phone] Jana Vick Vaibhav Unavailable Unavailabl Lorri Luo MD Unavailable [phone] Rafita Ayers MD Unavailable [phone] Kaelyn New Unavailable [phone] Marino Hayes MD Unavailable [phone] Marino Hayes MD Unavailable [phone] Reason for Visit * Reason Onset Date Comments Call Back 05/04/2023 callback Encounter Details Date Type Department Care Team (Late st Contact Info) Description 05/04/2023 Telephone [facility] [address] [place] [address] Nataliia Gomez MD [address] [facility] [place] [address] Call Back (callback) Social History Tobacco Use Types Packs/Day Years [...] Telephone Encounter - Lyn Fuller RN - 05/04/2023 12:54 PM CDT Return call to pt who reported that he had episode of left shld / arm pain associated w/ SOB while rushing to dentist appt - sx resolved after resting a few min. Pt explained that he attends cardio-pulm rehab, ordered by PCP, after having RSV in fall - pt stated sx new and did not have similar sx w/ past cardiac events- confirmed pt sched to follow-up w/ PCP 05-19-23 and that he was last seen byDr. Gomez 03-16-22. Instructed pt to sched next available follow-up w/ Dr. Gomez and contact PCP w/ sx update - reassured pt that PCP can provide recommendations until pt seen in follow-up by Dr. Gomez which could include sooner RAC visit w/ another learning strategist - pt verbalized understanding and agreed w/ plan - call transf to sched. mg * Telephone Encounter - Tayler Morgan - 05/04/2023 11:58 AM CDT [facility] Call Center Phone Message May a detailed message be left on voicemail: yes Reason for Call: Other: Pt called says he had an episode in his left arm up to his shpulder, that it went away quickly on its own, and is doing cardiac rehab and they wanted him to check in with Dr. Gomez before they start him again, says was pushing the walking in terms of speed because he felt would be late to dentist appt. Please call pt back for further discussion. Action Taken: Other: cardiology Travel Screening: Not Applicable .sac documented in this encounter Plan of Treatment [...] at outreach telephone calls from the [facility] team documented as of this encounter Visit Diagnoses Not on filedocumented in this encounter Additional Health Concerns Problem Noted Date Diagnosed Date HP GENERAL PROBLEM 11/13/2021 Assessment Noted Time PHQ-9 Depression Total Score: 7 12/09/19 23 11:14 AM CDT documented as of this encounter Care Teams Grinder Set Up Operator Thread Relationship Specialty Start Date End Date Onesimo Bruno MD PCP - General 08/11/06 Bhavna Mac PharmD [address] [place] [address] Pharmacist Pharmacist 07/11/18 Isaac Bro, RN Lead Scaffold Builder Primary Care - CC 09/01/18 Onesimo Bruno MD [address] [place] [address] Assigned PCP 07/30/20 Rafita Ayers MD [address] [place] [address] Assigned Pulmonology Provider 10/12/20 Flo Henry MD [facility] [address] Assigned Behavioral Health Provider 09/21/20 Jana Vick W Community Health Worker Primary Care - CC 06/08/21 Lorri Larsen MD [address] [place] [address] Otolaryngology 07/21/21 Rafita Ayers MD [address] [place] [address] Critical Care 11/30/21 Kaelyn New AuD [address] [place] [address] Internal Carver Audiology 12/09/21 Marino Hayes MD [address] [place] [address] Cardiovascular Disease 09/28/22 Marino Hayes MD [address] [place] [address] Assigned Heart and Vascular Provider 10/09/22 documented as of this encounter
--- OUTSIDE RECORDS SUMMARY | 2023-05-21 07:07 | XMS_ITS | Encounter Summary ---
Author Name Unknown Organization [place] Address [address] [place] [address] Care Team Providers Care Construction Laborer Name Role Phone Johana Bruno MD Primary Care Provider [phone] Bhavna Mac PharmD Unavailable [phone] Isaac Bro RN Unavailable [phone] Johana Bruno MD Unavailable [phone] Rafita Ayers MD Unavailable [phone] Flo Henry MD Unavailable [phone] Jana Vick CHW Unavailable Unavailabl e Lorri Larsen MD Unavailable [phone] Lorri Larsen MD Unavailable [phone] Rafita Ayers MD Unavailable [phone] Kaelyn New Unavailable [phone] Marino Hayes MD Unavailable + [phone] Marino Hayes MD Unavailable + [phone] Reason for Visit * Reason Comments Hospital F/U ED follow up 03/01/23 ([facility]); tested positive for RSV (using robitussin and T3 that was given) Encounter Details Date Type Department Care Team (Late st Contact Info) Description 03/02/2023 2:20 PM CORRECTIONAL AGENCY DIRECTOR Virtual Visit [address] [place] [address] Johana Bruno MD [address] [place] [address] Acute bronchitis due to respiratory syncytial virus (RSV) (Primary Dx); Exacerbation of asthma, unspecified asthma severity, unspecified whether persistent; 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 How would you like to obtain your AVS? MyChart If the video visit is dropped, the invitation should be resent by: Send to e- mail at: [email or web address] Will anyone else be joining your video visit? Yes: Cordell. How would they like to receive their invitation? Send to e-mail at: [email or web address] 1. Acute bronchitis due to respiratory syncytial virus (RSV) Continue with supportive cares. I think we should continue the prednisone and taper him down over the next 8 days. I am worried about him worsening acutely if we abruptly stop it tomorrow. - predniSONE (DELTASONE) 10 MG tablet; Take 4 tablets (40 mg) by mouth daily for 2 days, THEN 3 tablets (30 mg) daily for 2 days, THEN 2 tablets (20 mg) daily for 2 days, THEN 1 tablet (10 mg) daily for 2 days. Dispense: 20 tablet; Refill: 0 2. Exacerbation of asthma, unspecified asthma severity, unspecified whether persistent As above. Continue inhalers and nebulizers etc. - predniSONE (DELTASONE) 10 MG tablet; Take 4 tablets (40 mg) by mouth daily for 2 days, THEN 3 tablets (30 mg) daily for 2 days, THEN 2 tablets (20 mg) daily for 2 days, THEN 1 tablet (10 mg) daily for 2 days. Dispense: 20 tablet; Refill: 0 3. 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 I urged him to watch the bowels and use some MiraLAX as needed for constipation with a T3. 4. Bilateral pulmonary embolism (H) He needs refills of his Xarelto. - rivaroxaban ANTICOAGULANT (XARELTO ANTICOAGULANT) 20 MG TABS tablet; Take 1 tablet (20 mg) by mouth daily Dispense: 90 tablet; Refill: 3 5. Stage 3a chronic kidney disease (H) He needed refills of lisinopril today. - lisinopril (ZESTRIL) 5 MG tablet; Take 1 tablet (5 mg) by mouth daily Dispense: 90 tablet; Refill: 3 Subjective Roger is a 72 year old, presenting for the following health issues: Hospital F/U (ED follow up 03/01/23 ([facility]); tested positive for RSV (using robitussinand T3 that was given)) 03/02/2023 11:27 AM Additional Questions Roomed by Brigette Accompanied by Spouse (Cordell) RADHA Duran is a complicated 72-year-old gentleman with a history of asthma at least moderate who comes in today for ER follow-up. He was seen in the [facility] ER twice in the last few days with worsening shortness of breath and cough. Diagnosed with RSV. Yesterday his cough was so profound that he wasshaking and his was worried. In the emergency room they told him that there was not much more they could do for him. They gave him some Tylenol threes for cough suppression. He is feeling better today. I had prescribed some prednisone and he still on that but he thinks he has just 1 day left. He is using his nebulizer 4 times a day as well as all of his other inhalers. Objective Vitals: No vitals were obtained today due to virtual visit. Physical Exam Sounds congested but otherwise appears well and in no distress. A little slower with speech at times. Video-Visit Details Type of service: Video Visit Video Start Time: 1415 Video End Time:1440 Originating Location (pt. Location): Home Distant Location (provider location): On-site Platform used for Video Visit: Rusty Signed Electronically by: JOHANA BRUNO MD ECTIONAL AGENCY DIRECTOR * Tamiko De La Fuente - 03/02/2023 2:20 PM CST L/m for pt to call back to make a video visit ECTIONAL AGENCY DIRECTOR documented in this encounter Plan of Treatment [...] from the [facility] team documented as of this encounter Visit Diagnoses Diagnosis Acute bronchitis due to respiratory syncytial virus (RSV)- Primary Exacerbation of asthma, unspecified asthma severity, unspecified whether persistent 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) Bilateral pulmonary embolism (H) Other pulmonary embolism and infarction Stage 3a chronic kidney disease (H) documented in this encounter Additional Health Concerns Problem Noted Date Diagnosed Date HP GENERAL PROBLEM 11/13/2021 Assessment Noted Time PHQ-9 Depression Total Score: 7 12/09/19 23 11:14 AM CDT documented as of this encounter Care Teams Construction Laborer Relationship Specialty Start Date End Date Johana Bruno MD PCP - General 08/11/06 Bhavna Mac, GenesisD [address] [place] [address] Pharmacist Pharmacist 07/11/18 Isaac Bro, RN Lead Heel Breaster Primary Care - CC 09/01/18 Johana Bruno MD [address] [place] [address] Assigned PCP 07/30/20 Rafita Ayers MD [address] [place] [address] Assigned Pulmonology Provider 10/12/20 Flo Henry MD [address] [address] Assigned Behavioral Health Provider 09/21/20 Jana Vick, [facility] Community Health Worker Primary Care - CC 06/08/21 Lorri Larsen MD [address] [place] [address] Otolaryngology 07/21/21 Lorri Larsen MD [address] [place] [address] Assigned Surgical Provider 10/10/21 04/28/23 Rafita Ayers MD [address] [place] [address] Critical Care 11/30/21 Kaelyn New AuD [address] [place] [address] Eyeglass Maker Audiology 12/09/21 Marino Hayes MD [address] [place] [address] Cardiovascular Disease 09/28/22 Marino Hayes MD [address] [place] [address] Assigned Heart and Vascular Provider 10/09/22 documented as of this encounter
--- OUTSIDE RECORDS SUMMARY | 2023-05-21 07:07 | XMS_ITS | Encounter Summary ---
Author Name Unknown Organization [place] Address [address] [place] [address] Care Team Providers Care Mix House Operator Name Role Phone Onesimo Bruno MD Primary Care Provider Bhavna Mac PharmD Unavailable [phone] Isaac Bro RN Unavailable [phone] Onesimo Bruno MD Unavailable [phone] Rafita Ayers MD Unavailable [phone] Flo Henry MD Unavailable [phone] Jana Vick W Unavailable Unavailabl Lorri Luo MD Unavailable [phone] Rafita Ayers MD Unavailable [phone] Kaelyn New Unavailable [phone] Marino Hayes MD Unavailable [phone] Marino Hayes MD Unavailable [phone] Encounter Details Date Type Department Care Team (Late st Contact Info) Description 05/06/2023 [facility] [address] [place] [phone] Onesimo Bruno MD [address] [place], [place] [id number] Social History Tobacco Use Types Packs/Day Years [...] Telephone Encounter - Yaneth Cameron RN - 05/09/2023 5:01 PM CDT Spoke with patient and relayed recommendation from PCP. Patient stated symptoms have not returned and are not present at time of call. Did advise if symptoms return to be seen in the ED. Patient scheduled in open appointment ment slot with PCP 05/09. No further questions at time of call. * Telephone Encounter - Onesimo Bruno MD - 05/09/2023 4:46 PM CDT Do not think patient should return to rehab until he is evaluated by myself and cardiology. If he is having more symptoms or escalating symptoms he needs to be seen in the emergency room. * Telephone Encounter - Chandler Kuhn RN - 05/09/2023 8:09 AM CDT Spoke with patient to clarify message. Patient states he was walking to his dentist and started to have increase shortness of breath and some aching in his left shoulder blade and arm. He suspects this is due to him having to coulter to get there on time. Sates he did sit for a few minutes and his symptoms had resolved and have not returned. He stated he scheduled a follow up visit with cardiology for 05/17 regarding this and also has a visit scheduled with Dr Bruno on 05/18. States he then tried to follow up with Cardiac Rehab as well who said he needed to be cleared by Sharon before he can continue due to his symptoms. He is also wondering if he can adjust his blood pressure medications due to occasional orthostatic hypotension. Spinner Box explained that this may be best discussed at his upcoming visit. He verbalized understanding and agrees with this plan. documented in this encounter Plan of Treatment [...] continue to work with my Weight Watcher's life coach and start attending their Webinars. 4. I will report progress towards this goal at outreach telephone calls from the [facility] team documented as of this encounter Visit Diagnoses Not on filedocumented in this encounter Additional Health Concerns Problem Noted Date Diagnosed Date HP GENERAL PROBLEM 11/13/2021 Assessment Noted Time PHQ-9 Depression Total Score: 7 12/09/19 23 11:14 AM CDT documented as of this encounter Care Teams Mix House Operator Relationship Specialty Start Date End Date Onesimo Bruno MD PCP - General 08/11/06 Bhavna Mac, GenesisD [address] [place] [address] Pharmacist Pharmacist 07/11/18 Isaac Bro, RN Lead Professor Of Communication Arts Primary Care - CC 09/01/18 Onesimo Bruno MD [address] [place] [address] Assigned PCP 07/30/20 Rafita Ayers MD [address] [place] [address] Assigned Pulmonology Provider 10/12/20 Flo Henry MD [address] [address] Assigned Behavioral Health Provider 09/21/20 Jana Vick, CHW Community Health Worker Primary Care - CC 06/08/21 Lorri Larsen MD [address] [place] [address] Otolaryngology 07/21/21 Rafita Ayers MD [address] [place] [address] Critical Care 11/30/21 Kaelyn New AuD [address] [place] [address] Environmental Management Specialist Audiology 12/09/21 Marino Hayes MD [address] [place] [address] Cardiovascular Disease 09/28/22 Marino Hayes MD [address] [place] [address] Assigned Heart and Vascular Provider 10/09/22 documented as of this encounter
--- OUTSIDE RECORDS SUMMARY | 2023-05-21 07:07 | XMS_ITS | Encounter Summary ---
Author Name Unknown Organization [place] Address [address] [place] [address] Care Team Providers Care Custodian Blood Bank Name Role Phone Onesimo Bruno MD Primary Care Provider [phone] Bhavna Mac PharmD Unavailable [phone] Isaac Bro RN Unavailable [phone] Onesimo Bruno MD Unavailable [phone] Rafita Ayers MD Unavailable [phone] Flo Henry MD Unavailable [phone] Jana Vick W Unavailable Unavailabl e Lorri Larsen MD Unavailable [phone] Lorri Larsen MD Unavailable [phone] Rafita Ayesr MD Unavailable [phone] Kaelyn New Unavailable [phone] Marino Hayes MD Unavailable + [phone] Marino Hayes MD Unavailable + [phone] Encounter Details Date Type Department Care Team (Late st Contact Info) Description 03/03/[address] [facility] [address] [place] [phone] Onesimo Brnuo MD [address] [place] [address] Social History Tobacco Use Types Packs/Day Years [...] encounter Miscellaneous Notes * Telephone Encounter - Sanket Hillman - 03/03/2023 1:46 PM ORCHESTRA TEACHER 03/03 I called and talked to Cordell Partner is scheduled for video next TUE as planned per Damion ESTRA TEACHER documented in this encounter Plan of Treatment [...] documented as of this encounter Care Teams Custodian Blood Bank Relationship Specialty Start Date End Date Onesimo Bruno MD PCP - General 08/11/06 Bhavna Mac, GenesisD [address] [place] [address] Pharmacist Pharmacist 07/11/18 Isaac Bro, RN Lead Javascript Software Engineer Primary Care - CC 09/01/18 Onesimo Bruno MD [address] [place] [address] Assigned PCP 07/30/20 Rafita Ayers MD [address] [place] [address] Assigned Pulmonology Provider 10/12/20 Flo Henry MD [address] [address] Assigned Behavioral Health Provider 09/21/20 Jana Vick, [facility] Community Health Worker Primary Care - CC 06/08/21 Lorri Laresn MD [address] [place] [address] Otolaryngology 07/21/21 Lorri Larsen MD [address] [place] [address] Assigned Surgical Provider 10/10/21 04/28/23 Rafita Ayers MD [address] [place] [address] Critical Care 11/30/21 Kaelyn New AuD [address] [place] [address] Traffic Operations Engineer Audiology 12/09/21 Marino Hayes MD [address] [place] [address] Cardiovascular Disease 09/28/22 Marino Hayes MD [address] [place] [address] Assigned Heart and Vascular Provider 10/09/22 documented as of this encounter
--- OUTSIDE RECORDS SUMMARY | 2023-05-21 07:07 | XMS_ITS | Encounter Summary ---
Author Name Unknown Organization [place] Address [address] [place] [address] Care Team Providers Care Corn Sheller Name Role Phone Onesimo Bruno MD Primary Care Provider [phone] Bhavna Mac PharmD Unavailable [phone] Isaac Bro RN Unavailable [phone] Onesimo Bruno MD Unavailable [phone] Rafita Ayers MD Unavailable [phone] Flo Henry MD Unavailable [phone] Jana Vick W Unavailable Unavailabl Lorri Luo MD Unavailable [phone] Lorri Larsen MD Unavailable [phone] Rafita Ayers MD Unavailable [phone] Kaelyn New Unavailable [phone] Marino Hayes MD Unavailable + [phone] Marino Hayes MD Unavailable + [phone] Reason for Visit * Reason Onset Date Comments [facility] Cardiop[facility] Rehab 03/21/19 24 Encounter Details Date Type Department Care Team (Late st Contact Info) Description 03/21/2023 Telephone [facility] [address] [place] [phone] Onesimo Bruno MD [address] [place] [address] [facility] Cardiopulmonary Rehab Social History Tobacco Use Types [...] * Telephone Encounter - Chanda Calix - 03/22/2023 10:09 AM CST March 22, 2023 [facility] Cardiopulmonary Rehab was picked up from outbox of Dr. Bruno. Paperwork has been reviewed and is complete. Per initial initial request, this was sent via fax to [phone]. Chanda Calix RATOR HAND * Telephone Encounter - Chanda Calix - 03/21/2023 11:11 AM CST March 21, 2023 [facility] Cardiopulmonary Rehab was received via fax for Dr. Bruno to sign. Patient label was attached to paperwork and placed in provider's inbox to be signed. Chanda Calix RATOR HAND documented in this encounter Plan of Treatment [...] continue to work with my Weight Watcher's financial wellness coach and start attending their Webinars. 4. [...] documented as of this encounter Care Teams Corn Sheller Relationship Specialty Start Date End Date Onesimo Bruno MD PCP - General 08/11/06 Bhavna Mac, GenesisD [address] [place] [address] Pharmacist Pharmacist 07/11/18 Isaac Bro, RN Lead Library Assistant Primary Care - CC 09/01/18 Onesimo Bruno MD [address] [place] [address] Assigned PCP 07/30/20 Rafita Ayers MD [address] [place] [address] Assigned Pulmonology Provider 10/12/20 Flo Henry MD [address] [place] [address] Assigned Behavioral Health Provider 09/21/20 Jana Vick Vaibhav Community Health Worker Primary Care - CC 06/08/21 Lorri Larsen MD [address] [place] [address] Otolaryngology 07/21/21 Lorri Larsen MD [address] [place] [address] Assigned Surgical Provider 10/10/21 04/28/23 Rafita Ayers MD [address] [place] [address] Critical Care 11/30/21 Kaelyn New AuD [address] [place] [address] Salvage Mechanic Audiology 12/09/21 Marino Hayes MD [address] [place] [address] Cardiovascular Disease 09/28/22 Marino Hayes MD [address] [place] [address] Assigned Heart and Vascular Provider 10/09/22 documented as of this encounter
--- OUTSIDE RECORDS SUMMARY | 2023-05-21 07:07 | XMS_ITS | Encounter Summary ---
Author Name Unknown Organization [place] Address [address] [place] [address] Care Team Providers Care Portable Canteen Operator Name Role Phone Onesimo Bruno MD Primary Care Provider [phone] Bhavna Mac PharmD Unavailable +[phone] Isaac Bro RN Unavailable [phone] Onesimo Bruno MD Unavailable [phone] Rafita Ayers MD Unavailable +[phone] Flo Henry MD Unavailable +[phone] Jana Vick CHW Unavailable Unavailabl Lorri Luo MD Unavailable +[phone] Lorri Larsen MD Unavailable +[phone] Rafita Ayers MD Unavailable +[phone] Kaelyn New Unavailable +[phone] Marino Hayes MD Unavailable + [phone] Marino Hayes MD Unavailable + [phone] Reason for Visit * Reason Onset Date Comments [facility] 11/17/22 Encounter Details Date Type Department Care Team (Late st Contact Info) Description 04/01/2023 Telephone [facility] [address] [place] [address] Onesimo Bruno MD [address] [place] [address] [facility] 11/17/22 Social History Tobacco Use Types Packs/Day Years [...] * Telephone Encounter - Chanda Calix - 04/06/2023 12:00 PM CST April 06, 2023 Home health orders was picked up from outbox of Dr. Bruno. Paperwork has been reviewed and is complete. Per initial initial request, this was sent via fax to [phone]. Chanda Calix R&D LAB TECHNICIAN * Telephone Encounter - Ani Flowers - 04/01/2023 11:02 AM CST April 01, 2023 Home health orders was received via fax for Dr. Bruno to sign. Patient label was attached to paperwork and placed in provider's inbox to be signed. Ani Flowers R&D LAB TECHNICIAN documented in this encounter Plan of Treatment [...] continue to work with my Weight Watcher's technology coach and start attending their Webinars. 4. I will report progress towards this goal at outreach telephone calls from the [facility] team documented as of this encounter Visit Diagnoses Not on filedocumented in this encounter Additional Health Concerns Problem Noted Date Diagnosed Date HP GENERAL PROBLEM 11/13/2021 Assessment Noted Time PHQ-9 Depression Total Score: 7 12/09/19 23 11:14 AM CDT documented as of this encounter Care Teams Portable Canteen Operator Relationship Specialty Start Date End Date Onesimo Bruno MD PCP - General 08/11/06 Bhavna Mac, GenesisD [address] [place] [address] Pharmacist Pharmacist 07/11/18 Isaac Bro, RN Lead Api Developer Primary Care - CC 09/01/18 Onesimo Bruno MD [address] [place] [address] Assigned PCP 07/30/20 Rafita Ayers MD [address] [place] [address] Assigned Pulmonology Provider 10/12/20 Flo Henry MD [address] [place] [address] Assigned Behavioral Health Provider 09/21/20 Jana Vick, W Community Health Worker Primary Care - CC 06/08/21 Lorri Larsen MD [address] [place] [address] Otolaryngology 07/21/21 Lorri Larsen MD [address] [place] [address] Assigned Surgical Provider 10/10/21 04/28/23 Rafita Ayers MD [address] [place] [address] Critical Care 11/30/21 Kaelyn New AuD [facility] [place] [address] Inspector Subassemblies Audiology 12/09/21 Marino Hayes MD [address] [place] [address] 745685 Cardiovascular Disease 09/28/22 Marino Hayes MD [address] [place] [address] 768285 Assigned Heart and Vascular Provider 10/09/22 documented as of this encounter
--- OUTSIDE RECORDS SUMMARY | 2023-05-21 07:07 | XMS_ITS | Encounter Summary ---
Author Name Unknown Organization [facility] Address [address] [place] [address] Care Team Providers Care Metal Fabricating Inspector Name Role Phone Onesimo Bruno MD Primary Care Provider [phone] Bhavna Mac PharmD Unavailable +[phone] Isaac Bro RN Unavailable [phone] Onesimo Bruno MD Unavailable [phone] Rafita Ayers MD Unavailable +[phone] Flo Henry MD Unavailable +[phone] Jana Vick W Unavailable Unavailabl Lorri Luo MD Unavailable +[phone] Lorri Larsen MD Unavailable +[phone] Rafita Ayers MD Unavailable +[phone] Kaelyn New Unavailable +[phone] Marino Hayes MD Unavailable + [phone] Marino Hayes MD Unavailable + [phone] Reason for Visit * Reason Onset Date Comments [facility] Pul[facility] Tesfaye n 03/07/2023 Encounter Details Date Type Department Care Team (Late st Contact Info) Description 03/07/2023 Telephone [facility] [address] [place] [address] Onesimo Bruno MD [address] [place] [address] [facility] Pul[facility] Plan Social History Tobacco Use Types Packs/Day [...] * Telephone Encounter - Chanda Calix - 03/08/2023 11:08 AM CST March 08, 2023 [facility] Pulmonary Treatment Plan was picked up from outbox of Dr. Bruno. Paperwork has been reviewed and is complete. Per initial initial request, this was sent via fax to [phone]. Chanda Calix HOUSE OPERATOR * Telephone Encounter - Chanda Calix - 03/07/2023 12:45 PM CST March 07, 2023 [facility] Pulmonary Tx Plan was received via fax for Dr. Bruno to sign. Patient label was attached to paperwork and placed in provider's inbox to be signed. Chanda Calix HOUSE OPERATOR documented in this encounter Plan of [...] to work with my Weight Watcher's assistant women's basketball coach and start attending their Webinars. 4. I will report progress towards this goal at outreach telephone calls from the [facility] team documented as of this encounter Visit Diagnoses Not on filedocumented in this encounter Additional Health Concerns Problem Noted Date Diagnosed Date HP GENERAL PROBLEM 11/13/2021 Assessment Noted Time PHQ-9 Depression Total Score: 7 12/09/19 11:14 AM CDT documented as of this encounter Care Teams Metal Fabricating Inspector Relationship Specialty Start Date End Date Onesimo Bruno MD PCP - General 08/11/06 Bhavna Mac, GenesisD [address] [place] [address] Pharmacist Pharmacist 07/11/18 Isaac Bro, RN Lead Agriscience Technology Instructor Primary Care - CC 09/01/18 Onesimo Bruno MD [address] [place] [address] Assigned PCP 07/30/20 Rafita Ayers MD [address] [place] [address] Assigned Pulmonology Provider 10/12/20 Flo Henry MD [address] [place] [address] Assigned Behavioral Health Provider 09/21/20 Jana Vick W Community Health Worker Primary Care - CC 06/08/21 Lorri Larsen MD [address] [place] [address] Otolaryngology 07/21/21 Lorri Larsen MD [address] [place] [address] Assigned Surgical Provider 10/10/21 04/28/23 Rafita Ayers MD [address] [place] [address] Critical Care 11/30/21 Kaelyn New AuD [address] [place] [address] Drinking Water Technician Audiology 12/09/21 Marino Hayes MD [address] [place] [address] Cardiovascular Disease 09/28/22 Marino Hayes MD [address] [place] [address] Assigned Heart and Vascular Provider 10/09/22 documented as of this encounter
--- OUTSIDE RECORDS SUMMARY | 2023-05-21 07:07 | XMS_ITS | Encounter Summary ---
Author Name Unknown Organization [facility] Address [address] [place] [address] Care Team Providers Care Adjunct Teacher Name Role Phone Onesimo Bruno MD Primary Care Provider [phone] Bhavna Mac PharmD Unavailable +[phone] Isaac Bro RN Unavailable [phone] Onesimo Bruno MD Unavailable [phone] Rafita Ayers MD Unavailable +[phone] Flo Henry MD Unavailable +[phone] Jana Vick W Unavailable Unavailabl Lorri Luo MD Unavailable +[phone] Rafita Ayers MD Unavailable +[phone] Kaelyn New Unavailable +[phone] Marino Hayes MD Unavailable +[phone] Marino Hayes MD Unavailable +[phone] Reason for Visit * Reason Onset Date Comments Refill Request 05/13/2023 new pharmacy 05/13/2023 Encounter Details Date Type Department Care Team (Late st Contact Info) Description 05/13/2023 Refill [facility] [address] [place] [address] Onesimo Bruno MD [address] [place] [address] Refill Request; new pharmacy Social History Tobacco Use Types Packs/Day Years [...] encounter Miscellaneous Notes * Telephone Encounter - Mallory Carter - 05/13/2023 3:13 PM CDT Pt called back and I pended new pharmacy. * Telephone Encounter - Mallory Carter. - 05/13/2023 12:25 PM CDT New mail order pharmacy-needing new script please. documented in this encounter Plan of Treatment [...] continue to work with my Weight Watcher's call or contact centre coach and start attending their Webinars. 4. I will report progress towards this goal at outreach telephone calls from the [facility] team documented as of this encounter Visit Diagnoses Diagnosis Stage 3a chronic kidney disease (H) documented in this encounter Additional Health Concerns Problem Noted Date Diagnosed Date HP GENERAL PROBLEM 11/13/2021 Assessment Noted Time PHQ-9 Depression Total Score: 7 12/09/19 23 11:14 AM CDT documented as of this encounter Care Teams Adjunct Teacher Relationship Specialty Start Date End Date Onesimo Bruno MD PCP - General 08/11/06 Bhavna Mac PharmD [address] [place] [address] Pharmacist Pharmacist 07/11/18 Isaac Bro, RN Lead Vulcanizer Rubber Plate Primary Care - CC 09/01/18 Onesimo Bruno MD [address] [place] [address] Assigned PCP 07/30/20 Rafita Ayers MD [address] [place] [address] Assigned Pulmonology Provider 10/12/20 Flo Henry MD [address] [address] Assigned Behavioral Health Provider 09/21/20 Jana Vick W Community Health Worker Primary Care - CC 06/08/21 Lorri Larsen MD [address] [place] [address] Otolaryngology 07/21/21 Rafita Ayers MD [address] [place] [address] Critical Care 11/30/21 Kaelyn New AuD [facility] [place] [address] Icebox Worker Audiology 12/09/21 Marino Hayes MD [address] [place] [address] Cardiovascular Disease 09/28/22 Marino Hayes MD [address] [place] [address] Assigned Heart and Vascular Provider 10/09/22 documented as of this encounter
--- OUTSIDE RECORDS SUMMARY | 2023-05-21 07:07 | XMS_ITS | Encounter Summary ---
Author Name Unknown Organization [facility] Address [address] [place] [address] Care Team Providers Care Senior Front End Developer Name Role Phone Onesimo Bruno MD Primary Care Provider [phone] Bhavna Mac PharmD Unavailable [phone] Isaac Bro RN Unavailable [phone] Onesimo Bruno MD Unavailable [phone] Rafita Ayers MD Unavailable +[phone] Flo Henry MD Unavailable +[phone] Jana Vick W Unavailable Unavailabl Lorri Luo MD Unavailable +[phone] Lorri Larsen MD Unavailable +[phone] Rafita Ayers MD Unavailable +[phone] Kaelyn New Unavailable +[phone] Marino Hayes MD Unavailable + [phone] Marino Hayes MD Unavailable + [phone] Reason for Visit * Reason Onset Date Comments [facility] Pulmonary Treatment Plan 0 04/18/2023 Encounter Details Date Type Department Care Team (Late st Contact Info) Description 04/18/2023 Telephone [facility] [address] [place] [phone] Onesimo Bruno MD [address] [place] [address] [facility] Pulmonary Treatment Plan Social [...] * Telephone Encounter - Chanda Calix - 04/19/2023 10:42 AM CST April 19, 2023 [facility] Pulmonary Treatment Plan was picked up from outbox of Dr. Guillermo. Paperwork has been reviewed and is complete. Per initial initial request, this was sent via fax to [phone]. Chanda Calix MOLDER * Telephone Encounter - Chanda Calix - 04/18/2023 12:53 PM CST April 18, 2023 [facility] Pulmonary Treatment Plan was received via fax for Dr. Guillermo (Covering for Dr Bruno) to sign. Patient label was attached to paperwork and placed in provider's inbox to be signed. Chanda Calix MOLDER documented in this encounter Plan of Treatment [...] continue to work with my Weight Watcher's living coach and start attending their Webinars. 4. I will report progress towards this goal at outreach telephone calls from the [facility] team documented as of this encounter Visit Diagnoses Not on filedocumented in this encounter Additional Health Concerns Problem Noted Date Diagnosed Date HP GENERAL PROBLEM 11/13/2021 Assessment Noted Time PHQ-9 Depression Total Score: 7 12/09/19 23 11:14 AM CDT documented as of this encounter Care Teams Senior Front End Developer Relationship Specialty Start Date End Date Onesimo Bruno MD PCP - General 08/11/06 Bhavna Mac PharmD [address] [place] [address] Pharmacist Pharmacist 07/11/18 Isaac Bro, RN Lead Biller Primary Care - CC 09/01/18 Onesimo Bruno MD [address] [place] [address] Assigned PCP 07/30/20 Rafita Ayers MD [address] [place] [address] Assigned Pulmonology Provider 10/12/20 Flo Henry MD [address] [place] [address] Assigned Behavioral Health Provider 09/21/20 Jana Vick W Community Health Worker Primary Care - CC 06/08/21 Lorri Larsen MD [address] [place] [address] Otolaryngology 07/21/21 Lorri Larsen MD [address] [place] [address] 200425 Assigned Surgical Provider 10/10/21 04/28/23 Rafita Ayers MD [address] [place] [address] Critical Care 11/30/21 Kaelyn New AuD [address] [place] [address] Kitchen Bath Designer Audiology 12/09/21 Marino Hayes MD [address] [place] [address] Cardiovascular Disease 09/28/22 Marino Hayes MD [address] [place] [address] Assigned Heart and Vascular Provider 10/09/22 documented as of this encounter
--- OUTSIDE RECORDS SUMMARY | 2023-05-21 07:07 | XMS_ITS | Encounter Summary ---
Author Name Unknown Organization [facility] Address [address] [place] [address] Care Team Providers Care Flanging Roll Operator Name Role Phone Onesimo Bruno MD Primary Care Provider [phone] Bhavna Mac PharmD Unavailable +[phone] Isaac Bro RN Unavailable [phone] Onesimo Bruno MD Unavailable [phone] Rafita Ayers MD Unavailable [phone] Flo Henry MD Unavailable [phone] Jana Vick CHW Unavailable Unavailabl Lorri Luo MD Unavailable +[phone] Rafita Ayers MD Unavailable +[phone] Kaelyn New AuD Unavailable +[phone] Marino Hayes MD Unavailable [phone] Marino Hayes MD Unavailable + [phone] Encounter Details Date Type Department Care Team (Latest Contact Info) Description 05/10/2023 Travel Social History Tobacco Use Types Packs/Day [...] continue to work with my Weight Watcher's lacrosse coach and start attending their Webinars. 4. [...] documented as of this encounter Care Teams Flanging Roll Operator Relationship Specialty Start Date End Date Onesimo Bruno MD PCP - General 08/11/06 Bhavna Mac, Elio [address] [place] [address] Pharmacist Pharmacist 07/11/18 Isaac Bro, RN Lead Tier Truck Driver Primary Care - CC 09/01/18 Onesimo Bruno MD [address] [place] [address] Assigned PCP 07/30/20 Rafita Ayers MD [address] [place] [address] 758475 Assigned Pulmonology Provider 10/12/20 Flo Henry MD [facility] [address] [address] Assigned Behavioral Health Provider 09/21/20 Jana Vick CHW Community Health Worker Primary Care - CC 06/08/21 Lorri Larsen MD [address] [place] [address] 879525 Otolaryngology 07/21/21 Rafita Ayers MD [address] [place] [address] Critical Care 11/30/21 Kaelyn New AuD [address] [place] [address] Dip Painter Audiology 12/09/21 Marino Hayes MD [address] [place] [address] 796905 Cardiovascular Disease 09/28/22 Marino Hayes MD [address] [place] [address] Assigned Heart and Vascular Provider 10/09/22 documented as of this encounter
--- OUTSIDE RECORDS SUMMARY | 2023-05-21 07:07 | XMS_ITS | Encounter Summary ---
Author Name Unknown Organization [facility] Address [address] [place] [address] Care Team Providers Care Fashion Show Director Name Role Phone Onesimo Bruno MD Primary Care Provider [phone] Bhavna Mac PharmD Unavailable +[phone] Isaac Bro RN Unavailable [phone] Onesimo Bruno MD Unavailable [phone] Rafita Ayers MD Unavailable +[phone] Flo Henry MD Unavailable +[phone] Jana Vick W Unavailable Unavailabl Lorri Luo MD Unavailable +[phone] Lorri Larsen MD Unavailable +[phone] Rafita Ayers MD Unavailable +[phone] Kaelyn New Unavailable +[phone] Marino Hayes MD Unavailable + [phone] Marino Hayes MD Unavailable + [phone] Reason for Visit * Reason Onset Date Comments [facility] CPAP Supplies 03/16/2023 Encounter Details Date Type Department Care Team (Late st Contact Info) Description 03/16/2023 Telephone [facility] [address] [place] [phone] Onesimo Bruno MD [address] [place] [address] [facility] CPAP Supplies Social History Tobacco Use Types Packs/Day Years [...] * Telephone Encounter - Chanda Calix - 03/16/2023 8:10 AM CST March 16, 2023 [facility] Supplies was received via fax for Dr. Bruno to sign. Patient label was attached to paperwork and placed in provider's inbox to be signed. Chanda Calix HANT MARINER documented in this encounter Plan of Treatment [...] telephone calls from the [facility] team documented as of this encounter Visit Diagnoses Not on filedocumented in this encounter Additional Health Concerns Problem Noted Date Diagnosed Date HP GENERAL PROBLEM 11/13/2021 Assessment Noted Time PHQ-9 Depression Total Score: 7 12/09/19 23 11:14 AM CDT documented as of this encounter Care Teams Fashion Show Director Relationship Specialty Start Date End Date Onesimo Bruno MD PCP - General 08/11/06 Bhavna Mac PharmD [address] [place] [address] Pharmacist Pharmacist 07/11/18 Isaac Bro, RN Lead Materials Engineering Technician Primary Care - CC 09/01/18 Onesimo Bruno MD [address] [place] [address] Assigned PCP 07/30/20 Rafita Ayers MD [address] [place] [address] Assigned Pulmonology Provider 10/12/20 Flo Henry MD [address] [address] Assigned Behavioral Health Provider 09/21/20 Jana Vick, W Community Health Worker Primary Care - CC 06/08/21 Lorri Larsen MD [address] [place] [address] Otolaryngology 07/21/21 Lorri Lrasen MD [address] [place] [address] Assigned Surgical Provider 10/10/21 04/28/23 Rafita Ayers MD [address] [place] [address] Critical Care 11/30/21 Kaelyn New, [facility] [place] [address] Mat Machine Tender Audiology 12/09/21 Marino Hayes MD [address] [place] [address] Cardiovascular Disease 09/28/22 Marino Hayes MD [address] [place] [address] Assigned Heart and Vascular Provider 10/09/22 documented as of this encounter
--- OUTSIDE RECORDS SUMMARY | 2023-05-21 07:07 | XMS_ITS | Encounter Summary ---
Author Name Unknown Organization [place] Address [address] [place] [address] Care Team Providers Care Finish Grinder Name Role Phone Onesimo Bruno MD Primary Care Provider [phone] Bhavna Mac PharmD Unavailable +[phone] Isaac Bro RN Unavailable [phone] Onesimo Bruno MD Unavailable [phone] Rafita Ayers MD Unavailable +[phone] Flo Henry MD Unavailable [phone] Jana Vick W Unavailable Unavailabl Lorri Luo MD Unavailable +[phone] Lorri Larsen MD Unavailable +[phone] Rafita Ayers MD Unavailable +[phone] Kaelyn New Unavailable +[phone] Marino Hayes MD Unavailable + [phone] Marino Hayes MD Unavailable + [phone] Reason for Visit * Reason Comments Medication Refill Encounter Details Date Type Department Care Team (Late st Contact Info) Description 03/11/2023 Refill [facility] [address] [facility] [address] [place] [phone] Nataliia Gomez MD [address] [facility], [address] [place] [address] Medication Refill Social History Tobacco Use Types [...] continue to work with my Weight Watcher's speech coach and start attending their Webinars. 4. I will report progress towards this goal at outreach telephone calls from the [facility] team documented as of this encounter Visit Diagnoses Diagnosis Elevated brain natriuretic peptide (BNP) level Other nonspecific findings on examination of blood documented in this encounter Additional Health Concerns Problem Noted Date Diagnosed Date HP GENERAL PROBLEM 11/13/2021 Assessment Noted Time PHQ-9 Depression Total Score: 7 12/09/19 23 11:14 AM CDT documented as of this encounter Care Teams Finish Grinder Relationship Specialty Start Date End Date Onesimo Bruno MD PCP - General 08/11/06 Bhavna Mac PharmD [address] [place] [address] Pharmacist Pharmacist 07/11/18 Isaac Bro, RN Lead Pediatric Nurse Practitioner Primary Care - CC 09/01/18 Onesimo Bruno MD [address] [place] [address] Assigned PCP 07/30/20 Rafita Ayers MD [address] [place] [address] Assigned Pulmonology Provider 10/12/20 Flo Henry MD [address] [facility] [address] [place] [address] Assigned Behavioral Health Provider 09/21/20 Jana Vick, W Community Health Worker Primary Care - CC 06/08/21 Lorri Larsen MD [address] [place] [address] Otolaryngology 07/21/21 Lorri Larsen MD [address] [place] [address] Assigned Surgical Provider 10/10/21 04/28/23 Rafita Ayers MD [address] [place] [address] Critical Care 11/30/21 Kaelyn New AuD [facility] [place] [address] Blueprint Cutter Audiology 12/09/21 Marino Hayes MD [address] [place] [address] Cardiovascular Disease 09/28/22 Marino Hayes MD [address] [place] [address] Assigned Heart and Vascular Provider 10/09/22 documented as of this encounter
--- OUTSIDE RECORDS SUMMARY | 2023-05-21 07:08 | XMS_ITS | Encounter Summary ---
Author Name Unknown Organization [place] Address [address] [place] [address] Care Team Providers Care Veneer Supervisor Name Role Phone Onesimo Bruno MD Primary Care Provider [phone] Bhavna Mac PharmD Unavailable +[phone] Isaac Bro RN Unavailable [phone] Onesimo Bruno MD Unavailable [phone] Rafita Ayers MD Unavailable +[phone] Flo Henry MD Unavailable +[phone] Jana Vick CHW Unavailable Unavailabl e Lorri Larsen MD Unavailable +[phone] Lorri Larsen MD Unavailable +[phone] Rafita Ayers MD Unavailable +[phone] Kaelyn New Unavailable +[phone] Marino Hayes MD Unavailable + [phone] Marino Hayes MD Unavailable + [phone] Reason for Visit * Reason Comments Follow [...] st Contact Info) Description 02/15/2023 11:20 AM DROP WIRER Virtual Visit [facility] [address] [place] [address] Onesimo Bruno MD [address] [place] [address] Moderate persistent asthma without complication (Primary Dx); NAVAS (dyspnea on exertion); 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 No 1. Moderate persistent asthma without complication Continue his Trelegy. Continue his other inhaled medications. I do not see any indication for antibiotics or steroids at this time - Clgxnviwias-Wuhpkghwb-Dxfxjd (TRELEGY ELLIPTA) 100-62.5-25 MCG/ACT oral inhaler; Inhale 1 puff into the lungs daily Dispense: 60 each; Refill: 11 2. NAVAS (dyspnea on exertion) Doing better. He tells me his exercise tolerance is out where it was when he stopped cardiac rehab before. I am glad he is getting out of the hospital 3. 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 [...] okay. Cordell's niece came to visit for [employer] and cooked a lot of Norwegian food. Review of Systems Objective Vitals - Patient Reported Pain Score: Mild Pain (2) Pain Loc: Low Back (leg (right)) Physical Exam Looks well. No cough during interview. Speaks in full sentences. Video-Visit Details Type of service: Video Visit Video Start Time: 1124 Video End Time:1150 Originating Location (pt. Location): Home Distant Location (provider location): On-site Platform used for Video Visit: Rusty WIRER * Ani Flowers - 02/15/2023 11:20 AM CST Lm on to call back and schedule 2mo virtual video visit the week of 04/11- , since Dr. Bruno will not be here 04/14-04/30. WIRER * Sanket Hillman - 02/15/2023 11:20 AM CST 02/17 lm to call back to schedule a video appt in 2 months for 40 min WIRER * Sanket Hillman - 02/15/2023 11:20 AM CST 02/22 lm on [facility] phone to call and schedule Roger for a video 40 min video visit 2 month from 02/15 WIRER documented in this encounter Plan of Treatment [...] to work with my Weight Watcher's head boys tennis coach and start attending their Webinars. 4. 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 Morbid obesity (H) [...] documented as of this encounter Care Teams Veneer Supervisor Relationship Specialty Start Date End Date Onesimo Bruno MD PCP - General 08/11/06 Bhavna Mac, GenesisD [address] [place] [address] Pharmacist Pharmacist 07/11/18 Isaac Bro, RN Lead Histological Illustrator Primary Care - CC 09/01/18 Onesimo Bruno MD [address] [place] [address] Assigned PCP 07/30/20 Rafita Ayers MD [address] [place], [place] 365[address] Assigned Pulmonology Provider 10/12/20 Flo Henry MD [facility] [employer] [address] Assigned Behavioral Health Provider 09/21/20 Jana Vick, [facility] Community Health Worker Primary Care - CC 06/08/21 Lorri Larsen MD [address] [place] [address] Otolaryngology 07/21/21 Lorri Larsen MD [address] [place] [address] Assigned Surgical Provider 10/10/21 04/28/23 Rafita Ayers MD [address] [place] [address] Critical Care 11/30/21 Kaelyn New, [place] [address] [place] [address] Mark Up Designer Audiology 12/09/21 Marino Hayes MD [address] [place] [address] Cardiovascular Disease 09/28/22 Marino Hayes MD [address] [place] [address] Assigned Heart and Vascular Provider 10/09/22 documented as of this encounter
--- OUTSIDE RECORDS SUMMARY | 2023-05-21 07:08 | XMS_ITS | Encounter Summary ---
Author Name Unknown Organization [place] Address [address] [place] [address] Care Team Providers Care Coding Specialist Home Health Name Role Phone Onesimo Bruno MD Primary Care Provider [phone] Bhavna Mac PharmD Unavailable +[phone] Isaac Bro RN Unavailable [phone] Onesimo Bruno MD Unavailable [phone] Nataliia Gomez MD Unavailable Rafita Ayers MD Unavailable +[phone] Flo Henry MD Unavailable +[phone] Jana Vick W Unavailable Unavailabl Lorri Luo MD Unavailable +[phone] Lorri Larsen MD Unavailable +[phone] Rafita Ayers MD Unavailable +[phone] Kaelyn New Unavailable +[phone] Marino Hayes MD Unavailable + Marino Hayes MD Unavailable + Encounter Details Date Type Department Care Team (Late st Contact Info) Description 08/09/2022 [facility] Oren Martinez [facility] [address] [address] Malcolm Lima MA Social History [...] [facility] team documented as of this encounter Visit Diagnoses Not on filedocumented in this encounter Additional Health Concerns Problem Noted Date Diagnosed Date HP GENERAL PROBLEM 11/13/2021 Assessment Noted Time PHQ-9 Depression Total Score: 8 04/16/19 23 9:42 AM AUTO PORTER documented as of this encounter Care Teams Coding Specialist Home Health Relationship Specialty Start Date End Date Onesimo Bruno MD PCP - General 08/11/06 Bhavna Mac, GenesisD [address] [place] [address] Pharmacist Pharmacist 07/11/18 Isaac Bro, RN Lead Program Engineer Primary Care - CC 09/01/18 Onesimo Bruno MD [address] [place] [address] Assigned PCP 07/30/20 Nataliia Gomez MD [address] [place] [address], [address] [place] [address] Assigned Heart and Vascular Provider 08/29/20 10/08/22 Rafita Ayers MD [address] [place] [address] Assigned Pulmonology Provider 10/12/20 Flo Henry MD [address] [place] [address] [id number] Assigned Behavioral Health Provider 09/21/20 Jana Vick W Community Health Worker Primary Care - CC 06/08/21 Lorri Larsen MD [address] [place] [address] Otolaryngology 07/21/21 Lorri Larsen MD [address] [place] [address] 736805 Assigned Surgical Provider 10/10/21 04/28/23 Rafita Ayers MD [address] [place] [address] Critical Care 11/30/21 Kaelyn New AuD [address] [place] [address] Personnel Analyst Audiology 12/09/21 Marino Hayes MD [address] [place] [address] Cardiovascular Disease 09/28/22 Marino Hayes MD [address] [place] [address] 793585 Assigned Heart and Vascular Provider 10/09/22 documented as of this encounter
--- OUTSIDE RECORDS SUMMARY | 2023-05-21 07:08 | XMS_ITS | Encounter Summary ---
Author Name Unknown Organization [place] Address [address] [place] [address] Care Team Providers Care County Treasurer Name Role Phone Onesimo Bruno MD Primary Care Provider [phone] Bhavna Mac PharmD Unavailable +[phone] Isaac Bro RN Unavailable [phone] Onesimo Bruno MD Unavailable [phone] Nataliia Gomez MD Unavailable Rafita Ayers MD Unavailable +[phone] Flo Henry MD Unavailable +[phone] Jana Vick W Unavailable Unavailabl Lorri Luo MD Unavailable +[phone] Lorri Larsen MD Unavailable +[phone] Rafita Ayers MD Unavailable +[phone] Kaelyn New Unavailable [phone] Marino Hayes MD Unavailable +[phone] Marino Hayes MD Unavailable + Encounter Details Date Type Department Care Team (Late st Contact Info) Description 09/29/2022 [facility] [address] [address] Vane Castro Social History Tobacco [...] goal: 1. I will continue towork with [employer] on healthy meal planning. 2. I will monitor my portion sizes at meals. 3. I will start exercising on a regular basis being after clearance from Cardiology. 4. I will continue to work with my Weight Watcher's community living coach and start attending their Webinars. 4. I will report progress towards this goal at outreach telephone calls from the [facility] team documented as of this encounter Visit Diagnoses Not on filedocumented in this encounter Additional Health Concerns Problem Noted Date Diagnosed Date HP GENERAL PROBLEM 11/13/2021 Assessment Noted Time PHQ-9 Depression Total Score: 8 04/16/19 23 9:42 AM MED AIDE documented as of this encounter Care Teams County Treasurer Relationship Specialty Start Date End Date Onesimo Bruno MD PCP - General 08/11/06 Bhavna Mac, GenesisD [address] [place] [address] Pharmacist Pharmacist 07/11/18 Isaac Bro, RN Lead Ecclesiastical Worker Primary Care - CC 09/01/18 Onesimo Bruno MD [address] [place] [address] Assigned PCP 07/30/20 Nataliia Gomez MD [address] [place] [address], [address] [place] [address] Assigned Heart and Vascular Provider 08/29/20 10/08/22 Rafita Ayers MD [address] [place] [address] Assigned Pulmonology Provider 10/12/20 Flo Henry MD [address] [place] [address] Assigned Behavioral Health Provider 09/21/20 Jana Vick, W Community Health Worker Primary Care - CC 06/08/21 Lorri Larsen MD [address] [place] [address] Otolaryngology 07/21/21 Lorri Larsen MD [address] [place] [address] Assigned Surgical Provider 10/10/21 04/28/23 Rafita Ayers MD [address] [place] [address] Critical Care 11/30/21 Kaelyn New AuD [address] [place] [address] [id number] Goat Farmer Audiology 12/09/21 Marino Hayes MD [address] [place] [address] 016225 Cardiovascular Disease 09/28/22 Marino Hayes MD [address] [place] [address] 981715 Assigned Heart and Vascular Provider 10/09/22 documented as of this encounter
--- OUTSIDE RECORDS SUMMARY | 2023-05-21 07:08 | XMS_ITS | Encounter Summary ---
Author Name Unknown Organization [place] Address [address] [place] [address] Care Team Providers Care Cracking Unit Operator Name Role Phone Onesimo Bruno MD Primary Care Provider [phone] Bhavna Mac PharmD Unavailable +[phone] Isaac Bro RN Unavailable [phone] Onesimo Bruno MD Unavailable [phone] Nataliia Gomez MD Unavailable Luly Grant MD Unavailable +[phone] Rafita Ayers MD Unavailable +[phone] Flo Henry MD Unavailable +[phone] Jana Vick W Unavailable Unavailabl Tor Saldana DPGeeta Unavailable +[phone] Lorri Larsen MD Unavailable +[phone] Lorri Larsen MD Unavailable +[phone] Rafita Ayers MD Unavailable +[phone] Kaelyn New Unavailable +[phone] Marino Hayes MD Unavailable + [phone] Marino Hayes MD Unavailable + [phone] Encounter Details Date Type Department Care Team (Late st Contact Info) Description 12/01/2021 [facility] [address] [place] [address] Brigette Guerrero MA Social History Tobacco Use [...] continue to work with my Weight Watcher's excellence coach and start attending their Webinars. 4. I will report progress towards this goal at outreach telephone calls from the [facility] team documented as of this encounter Visit Diagnoses Not on filedocumented in this encounter Additional Health Concerns Problem Noted Date Diagnosed Date HP GENERAL PROBLEM 11/13/2021 Assessment Noted Time PHQ-9 Depression Total Score: 13 024 7:14 AM CDT documented as of this encounter Care Teams Cracking Unit Operator Relationship Specialty Start Date End Date Onesimo Bruno MD PCP - General 08/11/06 Bhavna Mac, GenesisD [address] [place] [address] Pharmacist Pharmacist 07/11/18 Isaac Bro, RN Lead Lamination Assembler Primary Care - CC 09/01/18 Onesimo Bruno MD [address] [place] [address] Assigned PCP 07/30/20 Naatliia Gomez MD [address] [facility], [address] [place] [address] Assigned Heart and Vascular Provider 08/29/20 10/08/22 Luly Grant MD [address] [facility] [address] [place] [address] Assigned Allergy Provider 08/29/20 04/16/22 Rafita Ayers MD [address] [place] [address] Assigned Pulmonology Provider 10/12/20 Flo Henry MD [address]75 [facility] [address] [place] [address] Assigned Behavioral Health Provider 09/21/20 Jana Vick, W Community Health Worker Primary Care - CC 06/08/21 Tor Joseph DPM [address] [facility] [address] [place] [address] Assigned Musculoskeletal Provider 07/05/21 03/19/22 Lorri Larsen MD [address] [place] [address] Otolaryngology 07/21/21 Lorri Larsen MD [address] [place] [address] Assigned Surgical Provider 10/10/21 04/28/23 Rafita Ayers MD [address] [place] [address] Critical Care 11/30/21 Kaelyn New, [place] [address] [place] [address] Acid Purifier Audiology 12/09/21 Marino Hayes MD [address] [place] [address] Cardiovascular Disease 09/28/22 Marino Hayes MD [address] [place] [address] Assigned Heart and Vascular Provider 10/09/22 documented as of this encounter
--- OUTSIDE RECORDS SUMMARY | 2023-05-21 07:08 | XMS_ITS | Encounter Summary ---
Author Name Unknown Organization [facility] Address [address] [place] [address] Care Team Providers Care Home Comfort Advisor Name Role Phone Onesimo Bruno MD Primary Care Provider [phone] Bhavna Mac PharmD Unavailable +[phone] Isaac Bro RN Unavailable [phone] Onesimo Bruno MD Unavailable [phone] Nataliia Gomez MD Unavailable Luly Grant MD Unavailable +[phone] Rafita Ayers MD Unavailable +[phone] Flo Henry MD Unavailable +[phone] Jana Vick W Unavailable Unavailabl Tor Saldana DPM Unavailable +[phone] Lorri Larsen MD Unavailable +[phone] Lorri Larsen MD Unavailable +[phone] Rafita Ayers MD Unavailable +[phone] Kaelyn New Unavailable +[phone] Marino Hayes MD Unavailable + [phone] Marino Hayes MD Unavailable + [phone] Reason for Visit * Reason Comments Medication Refill Encounter Details Date Type Department Care Team (Late st Contact Info) Description 01/22/2022 [facility] [address] [facility] [address] [place] [address] Nataliia Gomez MD [address] [facility], [address] [place] [address] Medication Refill Social History Tobacco Use Types [...] Coronavirus/COVID-19? 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 HUMAN RESOURCE MANAGEMENT INSTRUCTOR documented as of this encounter Plan of [...] work with my Weight Watcher's motor coach tour operator and start attending their Webinars. 4. I will report progress towards this goal at outreach telephone calls from the [facility] team documented as of this encounter Visit Diagnoses Diagnosis Elevated brain natriuretic peptide (BNP) level Other nonspecific findings on examination of blood documented in this encounter Additional Health Concerns Problem Noted Date Diagnosed Date HP GENERAL PROBLEM 11/13/2021 Assessment Noted Time PHQ-9 Depression Total Score: 13 05/19/ 024 7:14 AM CDT documented as of this encounter Care Teams Home Comfort Advisor Relationship Specialty Start Date End Date Onesimo Bruno MD PCP - General 08/11/06 Bhavna Mac, Elio [address] [place] [address] Pharmacist Pharmacist 07/11/18 Isaac Bro, RN Lead Bladder Blower Primary Care - CC 09/01/18 Onesimo Bruno MD [address] [place] [address] Assigned PCP 07/30/20 Nataliia Gomez MD [address] [facility], [address] [place] [address] Assigned Heart and Vascular Provider 08/29/20 10/08/22 Luly Grant MD [address] [facility] [address] [place] [address] Assigned Allergy Provider 08/29/20 04/16/22 Rafita Ayers MD [address] [place] [address] Assigned Pulmonology Provider 10/12/20 Flo Henry MD [facility] [address] [address] Assigned Behavioral Health Provider 09/21/20 Jana Vick, W Community Health Worker Primary Care - CC 06/08/21 Tor Joseph DPM [address] [facility] [address] [place] [address] Assigned Musculoskeletal Provider 07/05/21 03/19/22 Lorri Larsen MD [address] [place] [address] Otolaryngology 07/21/21 Lorri Larsen MD [address] [place] [address] Assigned Surgical Provider 10/10/21 04/28/23 Rafita Ayers MD [address] [place] [address] Critical Care 11/30/21 Kaelyn New AuD [address] [place] [address] Coupon Clerk Audiology 12/09/21 Marino Hayes MD [address] [place] [address] Cardiovascular Disease 09/28/22 Marino Hayes MD [address] [place] [address] Assigned Heart and Vascular Provider 10/09/22 documented as of this encounter
--- OUTSIDE RECORDS SUMMARY | 2023-05-21 07:08 | XMS_ITS | Encounter Summary ---
Author Name Unknown Organization [facility] Address [address] [place] [address] Care Team Providers Care Distribution Center Assistant Name Role Phone Onesimo Bruno MD Primary Care Provider [phone] Bhavna Mac PharmD Unavailable +[phone] Isaac Bro RN Unavailable [phone] Onesimo Bruno MD Unavailable [phone] Nataliia Gomez MD Unavailable Luly Grant MD Unavailable +[phone] Rafita Ayers MD Unavailable +[phone] Flo Henry MD Unavailable +[phone] Jana Vick W Unavailable Unavailabl Tor Saldana DPGeeta Unavailable +[phone] Lorri Larsen MD Unavailable +[phone] Lorri Larsen MD Unavailable +[phone] Rafita Ayers MD Unavailable +[phone] Kaelyn New Unavailable +[phone] Marino Hayes MD Unavailable + [phone] Marino Hayes MD Unavailable + [phone] Encounter Details Date Type Department Care Team (Late st Contact Info) Description 01/21/2022 [facility] [address] [place] [phone] Isabell Colon Social History Tobacco Use Types Packs/Day Years [...] Coronavirus/COVID-19? 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 EDI PROGRAMMER documented as of this encounter Plan of [...] continue to work with my Weight Watcher's jv baseball coach and start attending their Webinars. 4. [...] documented as of this encounter Care Teams Distribution Center Assistant Relationship Specialty Start Date End Date Onesimo Bruno MD PCP - General 08/11/06 Bhavna Mac, GenesisD [address] [place] [address] Pharmacist Pharmacist 07/11/18 Isaac Bro, RN Lead Egg Candler Primary Care - CC 09/01/18 Onesimo Bruno MD [address] [place] [address] Assigned PCP 07/30/20 Nataliia Gomez MD [address] [facility], [address] [place] [address] Assigned Heart and Vascular Provider 08/29/20 10/08/22 Luly Grant MD 16[address] [facility] [address] [place] [address] Assigned Allergy Provider 08/29/20 04/16/22 Rafita Ayers MD [address] [place] [address] Assigned Pulmonology Provider 10/12/20 Flo Henry MD [address] [facility] [address] [place] [address] Assigned Behavioral Health Provider 09/21/20 Jana Vick, W Community Health Worker Primary Care - CC 06/08/21 Tor Joseph DPM 2945 [facility] [address] [place] [address] Assigned Musculoskeletal Provider 07/05/21 03/19/22 Lorri Larsen MD [address] [place] [address] Otolaryngology 07/21/21 Lorri Larsen MD [address] [place] [address] Assigned Surgical Provider 10/10/21 04/28/23 Rafita Ayers MD [address] [place] [address] Critical Care 11/30/21 Kaelyn New, [place] [address] [place] [address] Television Tube Inspector Audiology 12/09/21 Marino Hayes MD [address] [place] [address] Cardiovascular Disease 09/28/22 Marino Hayes MD [address] [place] [address] Assigned Heart and Vascular Provider 10/09/22 documented as of this encounter
--- OUTSIDE RECORDS SUMMARY | 2023-05-21 07:08 | XMS_ITS | Encounter Summary ---
Author Name Unknown Organization [place] Address [address] [place] [address] Care Team Providers Care Gang Worker Name Role Phone Onesimo Bruno MD Primary Care Provider [phone] Bhavna Mac PharmD Unavailable [phone] Isaac Bro RN Unavailable [phone] Onesimo Bruno MD Unavailable [phone] Nataliia Gomez MD Unavailable Luly Grant MD Unavailable +[phone] Rafita Ayers MD Unavailable +[phone] Flo Henry MD Unavailable +[phone] Jana Vick W Unavailable Unavailabl Tor Saldana DPGeeta Unavailable +[phone] Lorri Larsen MD Unavailable +[phone] Lorri Larsen MD Unavailable +[phone] Rafita Ayers MD Unavailable +[phone] Kaelyn New Unavailable +[phone] Marino Hayes MD Unavailable + [phone] Marino Hayes MD Unavailable + [phone] Encounter Details Date Type Department Care Team (Late st Contact Info) Description 01/26/2022 [facility] [address] [address] Mary James RN Social History Tobacco Use [...] Coronavirus/COVID-19? 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 4. I will report progress towards this goal at outreach telephone calls from the [facility] team documented as of this encounter Visit Diagnoses Not on filedocumented in this encounter Additional Health Concerns Problem Noted Date Diagnosed Date HP GENERAL PROBLEM 11/13/2021 Assessment Noted Time PHQ-9 Depression Total Score: 13 024 7:14 AM CDT documented as of this encounter Care Teams Gang Worker Relationship Specialty Start Date End Date Onesimo Bruno MD PCP - General 08/11/06 Bhavna Mac, GenesisD [address] [place] [address] Pharmacist Pharmacist 07/11/18 Isaac Bro, RN Lead Newspaper Inserter Primary Care - CC 09/01/18 Onesimo Bruno MD [address] [place] [address] Assigned PCP 07/30/20 Nataliia Gomez MD [address] [place] [address], [address] [place] [address] Assigned Heart and Vascular Provider 08/29/20 10/08/22 [place] [address] [place] [address] [address] [place] [address] Assigned Allergy Provider 08/29/20 04/16/22 Rafita Ayers MD [address] [place] [address] Assigned Pulmonology Provider 10/12/20 Flo Henry MD [address] [address] Assigned Behavioral Health Provider 09/21/20 Jana Vick, W Community Health Worker Primary Care - CC 06/08/21 Tor Joseph DPM [address] [facility] [address] [place] [address] Assigned Musculoskeletal Provider 07/05/21 03/19/22 Lorri Larsen MD [address] [place] [address] Otolaryngology 07/21/21 Lorri Larsen MD [address] [place] [address] Assigned Surgical Provider 10/10/21 04/28/23 Rafita Ayers MD [address] [place] [address] Critical Care 11/30/21 Kaelyn New AuD [address] [place] [address] Digital Production Operator Audiology 12/09/21 Marino Hayes MD [address] [place] [address] Cardiovascular Disease 09/28/22 Marino Hayes MD [address] [place] [address] Assigned Heart and Vascular Provider 10/09/22 documented as of this encounter
--- OUTSIDE RECORDS SUMMARY | 2023-05-21 07:08 | XMS_ITS | Encounter Summary ---
Author Name Unknown Organization [place] Address [address] [place] [address] Care Team Providers Care Dance Hall Host/Hostess Name Role Phone Onesimo Bruno MD Primary Care Provider [phone] Bhavna Mac PharmD Unavailable +[phone] Isaac Bro RN Unavailable +[phone] Onesimo Bruno MD Unavailable +[phone] Nataliia Gomez MD Unavailable Luly Grant MD Unavailable +[phone] Rafita Ayers MD Unavailable +[phone] Flo Henry MD Unavailable +[phone] Jana Vick W Unavailable Unavailabl Tor Saldana DPM Unavailable +[phone] Lorri Larsen MD Unavailable +[phone] Lorri Larsen MD Unavailable +[phone] Rafita Ayers MD Unavailable +[phone] Kaelyn New Unavailable +[phone] Marino Hayes MD Unavailable + [phone] Marino Hayes MD Unavailable + [phone] Encounter Details Date Type Department Care Team (Late st Contact Info) Description 03/05/2022 [facility] [address] [place] [address] Chandler Day MD [address] [place] [address] Social History Tobacco Use Types Packs/Day Years [...] Coronavirus/COVID-19? No / Unsure 03/02/2022 12:59 AM SHOCK ABSORBER INSTALLER documented as of this encounter Miscellaneous Notes * Telephone Encounter - Rishabh Guerra RN - 03/08/2022 8:59 AM CST Last OV 05/06/20 Virtual return MWM 04/15/22 K ABSORBER INSTALLER documented in this encounter Plan of Treatment [...] continue to work with my Weight Watcher's executive coach and start attending their Webinars. 4. [...] documented as of this encounter Care Teams Dance Hall Host/Hostess Relationship Specialty Start Date End Date Onesimo Bruno MD PCP - General 08/11/06 Bhavna Mac, GenesisD [address] [place] [address] Pharmacist Pharmacist 07/11/18 Isaac Bro, RN Lead Php Mysql Developer Primary Care - CC 09/01/18 Onesimo Bruno MD [address] [place] [address] Assigned PCP 07/30/20 Nataliia Gomez MD [address] [facility], [address] [place] [address] Assigned Heart and Vascular Provider 08/29/20 10/08/22 Luly Grant MD [address] [facility] [address] [place] [address] Assigned Allergy Provider 08/29/20 04/16/22 Rafita Ayers MD 909 [place] [address] Assigned Pulmonology Provider 10/12/20 Flo Henry MD 1875 [facility] [address] [place], [place] [phone] Assigned Behavioral Health Provider 09/21/20 Jana Vick, W Community Health Worker Primary Care - CC 06/08/21 Tor Joseph DPM 2945 [facility] [address] [place] [address] Assigned Musculoskeletal Provider 07/05/21 03/19/22 Lorri Larsen MD [address] [place] [address] Otolaryngology 07/21/21 Lorri Larsen MD [address] [place] [address] Assigned Surgical Provider 10/10/21 04/28/23 Rafita Ayers MD [address] [place] [address] Critical Care 11/30/21 Kaelyn New, Shena [address] [place] [address] Telephone Information Supervisor Audiology 12/09/21 Marino Hayes MD [address] [place] [address] Cardiovascular Disease 09/28/22 Marino Hayes MD [address] [place] [address] Assigned Heart and Vascular Provider 10/09/22 documented as of this encounter
--- OUTSIDE RECORDS SUMMARY | 2023-05-21 07:08 | XMS_ITS | Encounter Summary ---
Author Name Unknown Organization [place] Address [address] [place] [address] Care Team Providers Care Crimping Machine Operator Name Role Phone Onesimo Bruno MD Primary Care Provider [phone] Bhavna Mac PharmD Unavailable +[phone] Isaac Bro RN Unavailable +[phone] Onesimo Bruno MD Unavailable +[phone] Nataliia Gomez MD Unavailable Luly Grant MD Unavailable +[phone] Rafita Ayers MD Unavailable +[phone] Flo Henry MD Unavailable +[phone] Jana Vick W Unavailable Unavailabl Tor Saldana DPGeeta Unavailable +[phone] Lorri Larsen MD Unavailable +[phone] Lorri Larsen MD Unavailable +[phone] Rafita Ayers MD Unavailable +[phone] Kaelyn New Unavailable +[phone] Marino Hayes MD Unavailable + [phone] Marino Hayes MD Unavailable + [phone] Encounter Details Date Type Department Care Team (Late st Contact Info) Description 03/05/2022 [facility] [address] [place] [phone] Vane Castro Social History Tobacco Use Types [...] Coronavirus/COVID-19? No / Unsure 03/02/2022 12:59 AM ACCOUNTS PAYABLE MANAGER documented as of this encounter Plan of [...] work with my Weight Watcher's swimming coach and start attending their Webinars. [...] documented as of this encounter Care Teams Crimping Machine Operator Relationship Specialty Start Date End Date Onesimo Bruno MD PCP - General 08/11/06 Bhavna Mac, GenesisD [address] [place] [address] Pharmacist Pharmacist 07/11/18 Isaac Bro, RN Lead Process Controller Primary Care - CC 09/01/18 Onesimo Bruno MD 1390 [place] [address] Assigned PCP 07/30/20 Nataliia Gomez MD [address] [facility], [address] [place] [address] Assigned Heart and Vascular Provider 08/29/20 10/08/22 Luly Grant MD [address] [facility] [address] [place] [address] Assigned Allergy Provider 08/29/20 04/16/22 Rafita Ayers MD 909 [place] [address] Assigned Pulmonology Provider 10/12/20 Flo Henry MD [address] [facility] [address] [place] [address] Assigned Behavioral Health Provider 09/21/20 Jana Vick, W Community Health Worker Primary Care - CC 06/08/21 Tor Joseph DPM 2945 [facility] [address] [place] [address] Assigned Musculoskeletal Provider 07/05/21 03/19/22 Lorri Larsen MD [address] [place] [address] Otolaryngology 07/21/21 Lorri Larsen MD [address] [place] [address] Assigned Surgical Provider 10/10/21 04/28/23 Rafita Ayers MD [address] [place] [address] Critical Care 11/30/21 Kaelyn New AuD [address] [place] [id number] Formula Mixer Audiology 12/09/21 Marino Hayes MD [address] [place] [address] Cardiovascular Disease 09/28/22 Marino Hayes MD [address] [place] [address] Assigned Heart and Vascular Provider 10/09/22 documented as of this encounter
--- OUTSIDE RECORDS SUMMARY | 2023-05-21 07:08 | XMS_ITS | Encounter Summary ---
Author Name Unknown Organization [place] Address [address] [place] [address] Care Team Providers Care Interior Block Wirer Name Role Phone Onesimo Bruno MD Primary Care Provider [phone] Bhavna Mac PharmD Unavailable +[phone] Isaac Bro RN Unavailable [phone] Onesimo Bruno MD Unavailable Nataliia Gomez MD Unavailable Rafita Ayers MD Unavailable +[phone] Flo Henry MD Unavailable +[phone] Jana Vick W Unavailable UnavailLorri Ulloa MD Unavailable +[phone] Lorri Larsen MD Unavailable +[phone] Rafita Ayers MD Unavailable +[phone] Kaelyn New Unavailable +[phone] Marino Hayes MD Unavailable + [phone] Marino Hayes MD Unavailable + [phone] Reason for Visit * Reason Comments Medication Refill Encounter Details Date Type Department Care Team (Late st Contact Info) Description [facility] [address] [facility] [address] [place] [phone] Nataliia Gomez MD [address] [facility], [address] [place] [address] Medication Refill Social History Tobacco Use Types [...] continue to work with my Weight Watcher's livestock judging coach and start attending their Webinars. 4. I will report progress towards this goal at outreach telephone calls from the [facility] team documented as of this encounter Visit Diagnoses Diagnosis Elevated brain natriuretic peptide (BNP) level Other nonspecific findings on examination of blood documented in this encounter Additional Health Concerns Problem Noted Date Diagnosed Date HP GENERAL PROBLEM 11/13/2021 Assessment Noted Time PHQ-9 Depression Total Score: 8 04/16/19 23 9:42 AM REWORKER documented as of this encounter Care Teams Interior Block Wirer Relationship Specialty Start Date End Date Onesimo Bruno MD PCP - General 08/11/06 Bhavna Mac, GenesisD [address] [place] [address] Pharmacist Pharmacist 07/11/18 Isaac Bro, RN Lead Continuity Editor Primary Care - CC 09/01/18 Onesimo Bruno MD [address]0 [place] [address] Assigned PCP 07/30/20 Nataliia Gomez MD [address] [facility], [address] [place] [address] Assigned Heart and Vascular Provider 08/29/20 10/08/22 Rafita Ayers MD [address] [place] [address] 702185 Assigned Pulmonology Provider 10/12/20 Flo Henry MD [address] [place] [address] [phone] Assigned Behavioral Health Provider 09/21/20 Jana Vick, W Community Health Worker Primary Care - CC 06/08/21 Lorri Larsen MD [address] [place] [address] Otolaryngology 07/21/21 Lorri Larsen MD [address] [place] [address] Assigned Surgical Provider 10/10/21 04/28/23 Rafita Ayers MD [address] [place] [address]130 Critical Care 11/30/21 Kaelyn New AuD [address] [place] [address] Big Data Platform Architect Audiology 12/09/21 Marino Hayes MD [address] [place] [address] 195125 Cardiovascular Disease 09/28/22 Marino Hayes MD [address] [place] [address] 325585 Assigned Heart and Vascular Provider 10/09/22 documented as of this encounter
--- OUTSIDE RECORDS SUMMARY | 2023-05-21 07:08 | XMS_ITS | Encounter Summary ---
Author Name Unknown Organization [place] Address [address] [place] [address] Care Team Providers Care Device Test Engineer Name Role Phone Onesimo Bruno MD Primary Care Provider [phone] Bhavna Mac PharmD Unavailable +[phone] Isaac Bro RN Unavailable [phone] Onesimo Bruno MD Unavailable +[phone] Rafita Ayers MD Unavailable +[phone] Flo Henry MD Unavailable +[phone] Jana Vick CHW Unavailable Unavailabl Lorri Luo MD Unavailable +[phone] Lorri Larsen MD Unavailable +[phone] Rafita Ayers MD Unavailable +[phone] Kaelyn New Unavailable +[phone] Marino Hayes MD Unavailable + [phone] Marino Hayes MD Unavailable + [phone] Encounter Details Date Type Department Care Team (Late st Contact Info) Description 12/13/2022 [facility] [address] [place] [address] Rafita Ayers MD [address] [place] [address] Social History Tobacco Use Types Packs/Day [...] continue to work with my Weight Watcher's kids activities coach and start attending their Webinars. 4. I will report progress towards this goal at outreach telephone calls from the [facility]3] team documented as of this encounter Visit Diagnoses Not on filedocumented in this encounter Additional Health Concerns Problem Noted Date Diagnosed Date HP GENERAL PROBLEM 11/13/2021 Assessment Noted Time PHQ-9 Depression Total Score: 7 12/09/19 23 11:14 AM CDT documented as of this encounter Care Teams Device Test Engineer Relationship Specialty Start Date End Date Onesimo Bruno MD PCP - General 08/11/06 Bhavna Mac, GenesisD [address] [place] [address] Pharmacist Pharmacist 07/11/18 Isaac Bro, RN Lead Cartridge Loader Primary Care - CC 09/01/18 Onesimo Bruno MD 1390 [place] [address] Assigned PCP 07/30/20 Rafita yAers MD 909 [place], [place] 527[address] Assigned Pulmonology Provider 10/12/20 Flo Henry MD [facility] [employer] [address] Assigned Behavioral Health Provider 09/21/20 Jana Vick CHW Community Health Worker Primary Care - CC 06/08/21 Lorri Larsen MD [address] [place] [address] Otolaryngology 07/21/21 Lorri Larsen MD [address] [place] [address] Assigned Surgical Provider 10/10/21 04/28/23 Rafita Ayers MD [address] [place] [address] Critical Care 11/30/21 Kaelyn New, Shena [address] [place] [address] Daycare Assistant Audiology 12/09/21 Marino Hayes MD [address] [place] [address] Cardiovascular Disease 09/28/22 Marino Hayes MD [address] [place] [address] Assigned Heart and Vascular Provider 10/09/22 documented as of this encounter
--- OUTSIDE RECORDS SUMMARY | 2023-05-21 07:08 | XMS_ITS | Encounter Summary ---
Author Name Unknown Organization [place] Address [address] [place] [address] Care Team Providers Care Fabric Worker Name Role Phone Onesimo Bruno MD Primary Care Provider [phone] Bhavna Mac PharmD Unavailable +[phone] Isaac Bro RN Unavailable [phone] Onesimo Bruno MD Unavailable [phone] Nataliia Gomez MD Unavailable Luly Grant MD Unavailable +[phone] Rafita Ayers MD Unavailable +[phone] Flo Henry MD Unavailable +[phone] Jana Vick W Unavailable Unavailabl Tor Saldana DPGeeta Unavailable +[phone] Lorri Larsen MD Unavailable +[phone] Lorri Larsen MD Unavailable +[phone] Rafita Ayers MD Unavailable +[phone] Kaelyn New Unavailable +[phone] Marino Hayes MD Unavailable + [phone] Marino Hayes MD Unavailable + [phone] Encounter Details Date Type Department Care Team (Late st Contact Info) Description 01/20/2022 [facility] [address] [place] [phone] Joy Zuniga Social History Tobacco Use Types Packs/Day Years [...] Coronavirus/COVID-19? 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 GEOLOGICAL SAMPLE TESTER documented as of this encounter Plan of [...] to work with my Weight Watcher's head golf coach and start attending their Webinars. 4. I will report progress towards this goal at outreach telephone calls from the [facility] team documented as of this encounter Visit Diagnoses Not on filedocumented in this encounter Additional Health Concerns Problem Noted Date Diagnosed Date HP GENERAL PROBLEM 11/13/2021 Assessment Noted Time PHQ-9 Depression Total Score: 13 024 7:14 AM CDT documented as of this encounter Care Teams Fabric Worker Relationship Specialty Start Date End Date Onesimo Bruno MD PCP - General 08/11/06 Bhavna Mac, Elio [address] [place] [address] Pharmacist Pharmacist 07/11/18 Isaac Bro, RN Lead Nurse Advisor Primary Care - CC 09/01/18 Onesimo Bruno MD [address]0 [place] [address] Assigned PCP 07/30/20 Nataliia Gomez MD [address] [place] [address], [address] [place] [address] Assigned Heart and Vascular Provider 08/29/20 10/08/22 [place] [address] [place] [address] [address] [place] [address] Assigned Allergy Provider 08/29/20 04/16/22 Rafita Ayers MD [address] [place] [address] Assigned Pulmonology Provider 10/12/20 Flo Henry MD 1875 [facility] 250 [place] [address] Assigned Behavioral Health Provider 09/21/20 Jana Vick, W Community Health Worker Primary Care - CC 06/08/21 Tor Joseph DPM 2945 [facility] [address] [place] [address] Assigned Musculoskeletal Provider 07/05/21 03/19/22 Lorri Larsen MD [address] [place] [address] Otolaryngology 07/21/21 Lorri Larsen MD [address] [place] [address] Assigned Surgical Provider 10/10/21 04/28/23 Rafita Ayers MD [address] [place] [address] Critical Care 11/30/21 Kaelyn New AuD [address] [place] [address] [phone] Licensed Psychologist Manager Audiology 12/09/21 Marino Hayes MD [address] [place] [address] Cardiovascular Disease 09/28/22 Marino Hayes MD [address] [place] [address] Assigned Heart and Vascular Provider 10/09/22 documented as of this encounter
--- OUTSIDE RECORDS SUMMARY | 2023-05-21 07:08 | XMS_ITS | Encounter Summary ---
Author Name Unknown Organization [place] Address [address] [place] [address] Care Team Providers Care Wound/Ostomy Nurse Name Role Phone Onesimo Bruno MD Primary Care Provider [phone] Bhavna Mac PharmD Unavailable +[phone] Isaac Bro RN Unavailable [phone] Onesimo Bruno MD Unavailable [phone] Rafita Ayers MD Unavailable +[phone] Flo Henry MD Unavailable +[phone] Jana Vick W Unavailable Unavailabl Lorri Luo MD Unavailable +[phone] Lorri Larsen MD Unavailable +[phone] Rafita Ayers MD Unavailable +[phone] Kaelyn New Unavailable +[phone] Marino Hayes MD Unavailable + [phone] Marino Hayes MD Unavailable + [phone] Encounter Details Date Type Department Care Team (Late st Contact Info) Description 02/21/2023 [facility] [address] [place] [address] Onesimo Bruno MD [address]0 [place] [address] Exacerbation of asthma, unspecified asthma severity, unspecified [...] to asthma since the last clinic visit. R PANEL INSTALLER documented in this encounter Plan of [...] ([facility]) team documented as of this encounter Visit Diagnoses Diagnosis Exacerbation of asthma, unspecified asthma severity, unspecified whether persistent- Primary documented in this encounter Additional Health Concerns Problem Noted Date Diagnosed Date HP GENERAL PROBLEM 11/13/2021 Assessment Noted Time PHQ-9 Depression Total Score: 7 12/09/19 23 11:14 AM CDT documented as of this encounter Care Teams Wound/Ostomy Nurse Relationship Specialty Start Date End Date Onesimo Bruno MD PCP - General 08/11/06 Bhavna Mac, Elio [address] [place] [address] Pharmacist Pharmacist 07/11/18 Isaac Bro, RN Lead Director Of Resource Development Primary Care - CC 09/01/18 Onesimo Bruno MD [address] [place] [address] Assigned PCP 07/30/20 Rafita Ayers MD [address] [place] [address] Assigned Pulmonology Provider 10/12/20 Flo Henry MD [address] [address] Assigned Behavioral Health Provider 09/21/20 Jana Vick [facility] Community Health Worker Primary Care - CC 06/08/21 Lorri Larsen MD [address] [place] [address] Otolaryngology 07/21/21 Lorri Larsen MD [address] [place] [address] Assigned Surgical Provider 10/10/21 04/28/23 Rafita Ayers MD [address] [place] [address] Critical Care 11/30/21 Kaelyn New AuD [address] [place] [address] Helper Coordinator Audiology 12/09/21 Marino Hayes MD [address] [place] [address] Cardiovascular Disease 09/28/22 Marino Hayes MD [address] [place] [address] Assigned Heart and Vascular Provider 10/09/22 documented as of this encounter
--- OUTSIDE RECORDS SUMMARY | 2023-05-21 07:08 | XMS_ITS | Encounter Summary ---
Author Name Unknown Organization [place] Address [address] [place] [address] Care Team Providers Care Sole Leveler Machine Name Role Phone Onesimo Bruno MD Primary Care Provider [phone] Bhavna Mac PharmD Unavailable +[phone] Isaac Bro RN Unavailable [phone] Onesimo Bruno MD Unavailable +[phone] Nataliia Gomez MD Unavailable Rafita Ayers MD Unavailable +[phone] Flo Henry MD Unavailable +[phone] Jana Vick W Unavailable Unavailabl Lorri Luo MD Unavailable +[phone] Lorri Larsen MD Unavailable +[phone] Rafita Ayers MD Unavailable +[phone] Kaelyn New Unavailable +[phone] Marino Hayes MD Unavailable + Marino Hayes MD Unavailable + Encounter Details Date Type Department Care Team (Late st Contact Info) Description 05/20/2022 [facility] [address] [place] [address] Chandler Day MD [address] [place] [address] Social History Tobacco Use Types Packs/Day Years [...] continue to work with my Weight Watcher's swim coach and start attending their Webinars. 4. [...] Total Score: 8 04/16/19 23 9:42 AM FEEDLOT MANAGER documented as of this encounter Care Teams Sole Leveler Machine Relationship Specialty Start Date End Date Onesimo Bruno MD PCP - General 08/11/06 Bhavna Mac, Elio [address] [place] [address] Pharmacist Pharmacist 07/11/18 Isaac Bro, RN Lead Stain Maker Primary Care - CC 09/01/18 Onesimo Bruno MD [address] [place] [address] Assigned PCP 07/30/20 Nataliia Gomez MD [address] [place] [address], [address] [place] [address] Assigned Heart and Vascular Provider 08/29/20 10/08/22 Rafita Ayers MD [address] [place] [address] Assigned Pulmonology Provider 10/12/20 Flo Henry MD [address] [place] [address] Assigned Behavioral Health Provider 09/21/20 Jana Vick, W Community Health Worker Primary Care - CC 06/08/21 Lorri Larsen MD [address] [place] [address] Otolaryngology 07/21/21 Lorri Larsen MD [address] [place] [address] Assigned Surgical Provider 10/10/21 04/28/23 Rafita Ayers MD [address] [place] [address]85 Critical Care 11/30/21 Kaelyn New AuD [address] [place] [address] Product Design Engineer Audiology 12/09/21 Marino Hayes MD [address] [place] [address]545 Cardiovascular Disease 09/28/22 Marino Hayes MD [address] [place] [address] 854665 Assigned Heart and Vascular Provider 10/09/22 documented as of this encounter
--- OUTSIDE RECORDS SUMMARY | 2023-05-21 07:08 | XMS_ITS | Encounter Summary ---
Author Name Unknown Organization [place] Address [address] [place] [address] Care Team Providers Care Flight Attendant/Inflight Supervisor Name Role Phone Onesimo Bruno MD Primary Care Provider [phone] Bhavna Mac PharmD Unavailable +[phone] Isaac Bro RN Unavailable [phone] Onesimo Bruno MD Unavailable [phone] Rafita Ayers MD Unavailable +[phone] Flo Henry MD Unavailable +[phone] Jana Vick W Unavailable Unavailabl Lorri Luo MD Unavailable +[phone] Lorri Larsen MD Unavailable +[phone] Rafita Ayers MD Unavailable +[phone] Kaelyn New Unavailable +[phone] Marino Hayes MD Unavailable + [phone] Marino Hayes MD Unavailable + [phone] Reason for Visit * Reason Onset Date Comments Refill Request 02/21/2023 Encounter Details Date Type Department Care Team (Late st Contact Info) Description 02/21/2023 Refill [facility] [address] [place] [phone] Onesimo Bruno MD [address]0 [place] [address] Refill Request Social History Tobacco Use Types [...] continue to work with my Weight Watcher's horse riding coach or instructor and start attending their Webinars. 4. I will report progress towards this goal at outreach telephone calls from the [facility] team documented as of this encounter Visit Diagnoses Diagnosis Stage 3a chronic kidney disease (H) documented in this encounter Additional Health Concerns Problem Noted Date Diagnosed Date HP GENERAL PROBLEM 11/13/2021 Assessment Noted Time PHQ-9 Depression Total Score: 7 12/09/19 23 11:14 AM CDT documented as of this encounter Care Teams Flight Attendant/Inflight Supervisor Relationship Specialty Start Date End Date Onesimo Bruno MD PCP - General 08/11/06 Bhvana Mac, GenesisD [address] [place] [address] Pharmacist Pharmacist 07/11/18 Isaac Bro, RN Lead Oil Sales And Service Rep Primary Care - CC 09/01/18 Onesimo Bruno MD [address] [place] [address] Assigned PCP 07/30/20 Rafita Ayers MD [address] [place] [address] Assigned Pulmonology Provider 10/12/20 Flo Henry MD 1875 [facility] [address] [place] [address] Assigned Behavioral Health Provider 09/21/20 Jana Vick, W Community Health Worker Primary Care - CC 06/08/21 Lorri Larsen MD [address] [place] [address] Otolaryngology 07/21/21 Lorri Larsen MD [address] [place] [address] Assigned Surgical Provider 10/10/21 04/28/23 Rafita Ayers MD [address] [place] [address] Critical Care 11/30/21 Kaelyn New, Shena [facility] [place] [address] Compressed Air Pile Driver Operator Audiology 12/09/21 Marino Hayes MD [address] [place] [address] Cardiovascular Disease 09/28/22 Marino Hayes MD [address] [place] [address] Assigned Heart and Vascular Provider 10/09/22 documented as of this encounter
--- OUTSIDE RECORDS SUMMARY | 2023-05-21 07:08 | XMS_ITS | Encounter Summary ---
Author Name Unknown Organization [place] Address [address] [place] [address] Care Team Providers Care Power And Recovery Supervisor Name Role Phone Onesimo Bruno MD Primary Care Provider +[phone] Bhavna Mac PharmD Unavailable +[phone] Isaac Bro RN Unavailable +[phone] Onesimo Bruno MD Unavailable +[phone] Rafita Ayers MD Unavailable +[phone] Flo Henry MD Unavailable +[phone] Jana Vick W Unavailable Unavailabl Lorri Luo MD Unavailable +[phone] Lorri Larsen MD Unavailable +[phone] Rafita Ayers MD Unavailable +[phone] Kaelyn New Unavailable +[phone] Marino Hayes MD Unavailable + [phone] Marino Hayes MD Unavailable + [phone] Reason for Visit * Reason Comments Medication Refill Encounter Details Date Type Department Care Team (Late st Contact Info) Description 02/17/2023 Refill [facility] 139[address] [place] [phone] Onesimo Bruno MD 1390 [place] [address] Medication Refill Social History Tobacco Use Types [...] this encounter Visit Diagnoses Diagnosis 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 documented in this encounter Additional Health Concerns Problem Noted Date Diagnosed Date HP GENERAL PROBLEM 11/13/2021 Assessment Noted Time PHQ-9 Depression Total Score: 7 12/09/19 23 11:14 AM CDT documented as of this encounter Care Teams Power And Recovery Supervisor Relationship Specialty Start Date End Date Onesimo Bruno MD PCP - General 08/11/06 Bhavna Mac, GenesisD [address] [place] [address] Pharmacist Pharmacist 07/11/18 Isaac Bro, RN Lead Triage Assistant Primary Care - CC 09/01/18 Onesimo Bruno MD [address]0 [place] [address] Assigned PCP 07/30/20 Rafita Ayers MD 909 [place] [address] Assigned Pulmonology Provider 10/12/20 Flo Henry MD [address] [address] Assigned Behavioral Health Provider 09/21/20 Jana Vick W Community Health Worker Primary Care - CC 06/08/21 Lorri Larsen MD [address] [place] [address] Otolaryngology 07/21/21 Lorri Larsen MD [address] [place] [address] Assigned Surgical Provider 10/10/21 04/28/23 Rafita Ayers MD [address] [place] [address] Critical Care 11/30/21 Kaleyn New, [place] [address] [place] [address] Talent Consultant Audiology 12/09/21 Marino Hayes MD [address] [place] [address] Cardiovascular Disease 09/28/22 Marino Hayes MD [address] [place] [address] Assigned Heart and Vascular Provider 10/09/22 documented as of this encounter
--- OUTSIDE RECORDS SUMMARY | 2023-05-21 07:08 | XMS_ITS | Encounter Summary ---
Author Name Unknown Organization [place] Address [address] [place] [address] Care Team Providers Care Sales And Marketing Professional Name Role Phone Onesimo Bruno MD Primary Care Provider [phone] Bhavna Mac PharmD Unavailable +[phone] Isaac Bro RN Unavailable +[phone] Onesimo Bruno MD Unavailable +[phone] Nataliia Gomez MD Unavailable Luly Grant MD Unavailable +[phone] Rafita Ayers MD Unavailable +[phone] Flo Henry MD Unavailable +[phone] Jana Vick W Unavailable Unavailabl Tor Saldana DPGeeat Unavailable +[phone] Lorri Larsen MD Unavailable +[phone] Lorri Larsen MD Unavailable +[phone] Rafita Ayers MD Unavailable +[phone] Kaelyn New Unavailable +[phone] Marino Hayes MD Unavailable + [phone] Marino Hayes MD Unavailable + [phone] Encounter Details Date Type Department Care Team (Late st Contact Info) Description 12/08/2021 [facility] [address] [place] [phone] Vane Castro Social History Tobacco Use Types [...] continue to work with my Weight Watcher's sustainability coach and start attending their Webinars. 4. [...] of this encounter Care Teams Sales And Marketing Professional Relationship Specialty Start Date End Date Onesimo Bruno MD PCP - General 08/11/06 Bhavna Mac, GenesisD [address] [place] [address] Pharmacist Pharmacist 07/11/18 Isaac Bro, RN Lead Space Physicist Primary Care - CC 09/01/18 Onesimo Bruno MD 1390 [place] [address] Assigned PCP 07/30/20 Nataliia Gomez MD [address] [facility], [address] [place] [address] Assigned Heart and Vascular Provider 08/29/20 10/08/22 Luly Grant MD 1655 [facility] [address] [place] [address] Assigned Allergy Provider 08/29/20 04/16/22 Rafita Ayers MD 909 [place] [address] Assigned Pulmonology Provider 10/12/20 Flo Henry MD 1875 [facility] [address] [place] [address] Assigned Behavioral Health Provider 09/21/20 Jana Vick, W Community Health Worker Primary Care - CC 06/08/21 Tor Joseph DPM 2945 [facility] [address] [place] [address] Assigned Musculoskeletal Provider 07/05/21 03/19/22 Lorri Larsen MD [address] [place] [address] Otolaryngology 07/21/21 Lorri Larsen MD [address] [place] [address] Assigned Surgical Provider 10/10/21 04/28/23 Rafita Ayers MD [address] [place] [address] Critical Care 11/30/21 Kaelyn New AuD [address] [place] [address] [id number] Chemical Treatment Plant Technician Audiology 12/09/21 Marino Hayes MD [address] [place] [address] Cardiovascular Disease 09/28/22 Marino Hayes MD [address] [place] [address] Assigned Heart and Vascular Provider 10/09/22 documented as of this encounter
--- OUTSIDE RECORDS SUMMARY | 2023-05-21 07:08 | XMS_ITS | Encounter Summary ---
Author Name Unknown Organization [place] Address [address] [place] [address] Care Team Providers Care Vulcan Crewmember Name Role Phone Onesimo Bruno MD Primary Care Provider [phone] Bhavna Mac PharmD Unavailable +[phone] Isaac Bro RN Unavailable +[phone] Onesimo Bruno MD Unavailable +[phone] Nataliia Gomez MD Unavailable Luly Grant MD Unavailable +[phone] Rafita Ayers MD Unavailable +[phone] Flo Henry MD Unavailable +[phone] Jana Vick W Unavailable Unavailabl Tor Saldana DPGeeta Unavailable +[phone] Lorri Larsen MD Unavailable +[phone] Lorri Larsen MD Unavailable +[phone] Rafita Ayers MD Unavailable +[phone] Kaelyn New Unavailable +[phone] Marino Hayes MD Unavailable + [phone] Marino Hayes MD Unavailable + [phone] Encounter Details Date Type Department Care Team (Late st Contact Info) Description 12/01/2021 [facility] [address] [place] [phone] Joy Zuniga Social History Tobacco Use Types [...] work with my Weight Watcher's head boys golf coach and start attending their Webinars. [...] documented as of this encounter Care Teams Vulcan Crewmember Relationship Specialty Start Date End Date Onesimo Bruno MD PCP - General 08/11/06 Bhavna Mac, GenesisD 870 [place] [address] Pharmacist Pharmacist 07/11/18 Isaac Bro, RN Lead Ingredient Mixer Primary Care - CC 09/01/18 Onesimo Bruno MD 1390 [place] [address] Assigned PCP 07/30/20 Nataliia Gomez MD [address] [facility], [address] [place] [address] Assigned Heart and Vascular Provider 08/29/20 10/08/22 Luly Grant MD 1655 [facility] [address] [place] [address] Assigned Allergy Provider 08/29/20 04/16/22 Rafita Ayers MD 909 [place] [address] Assigned Pulmonology Provider 10/12/20 Flo Henry MD 1875 [facility] [address] [place] [address] Assigned Behavioral Health Provider 09/21/20 Jana Vick, W Community Health Worker Primary Care - CC 06/08/21 Tor Joseph DPM 2945 [facility] [address] [place] [address] Assigned Musculoskeletal Provider 07/05/21 03/19/22 Lorri Larsen MD [address] [place] [address] Otolaryngology 07/21/21 Lorri Larsen MD [address] [place] [address] Assigned Surgical Provider 10/10/21 04/28/23 Rafita Ayers MD [address] [place] [address] Critical Care 11/30/21 Kaelyn New AuD [address] [place] [address] [id number] Reservations Specialist Audiology 12/09/21 Marino Hayes MD [address] [place] [address] Cardiovascular Disease 09/28/22 Marino Hayes MD [address] [place] [address] Assigned Heart and Vascular Provider 10/09/22 documented as of this encounter
--- OUTSIDE RECORDS SUMMARY | 2023-05-21 07:08 | XMS_ITS | Encounter Summary ---
Author Name Unknown Organization [place] Address [address] [place] [address] Care Team Providers Care Transportation Consultant Name Role Phone Onesimo Bruno MD Primary Care Provider [phone] Bhavna Mac PharmD Unavailable +[phone] Isaac Bro RN Unavailable [phone] Onesimo Bruno MD Unavailable +[phone] Nataliia Gomez MD Unavailable Luly Grant MD Unavailable +[phone] Rafita Ayers MD Unavailable +[phone] Flo Henry MD Unavailable +[phone] Jana Vick W Unavailable Unavailabl Tor Saldana DPGeeta Unavailable +[phone] Lorri Larsen MD Unavailable +[phone] Lorri Larsen MD Unavailable +[phone] Rafita Ayers MD Unavailable +[phone] Kaelyn New Unavailable +[phone] Marino Hayes MD Unavailable + [phone] Marino Hayes MD Unavailable + [phone] Encounter Details Date Type Department Care Team (Late st Contact Info) Description 01/15/2022 [facility] [address] [place] [phone] Joy Zuniga Social History Tobacco Use Types [...] Coronavirus/COVID-19? 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 documented as of this encounter Plan of [...] the [facility] team documented as of this encounter Visit Diagnoses Not on filedocumented in this encounter Additional Health Concerns Problem Noted Date Diagnosed Date HP GENERAL PROBLEM 11/13/2021 Assessment Noted Time PHQ-9 Depression Total Score: 13 024 7:14 AM CDT documented as of this encounter Care Teams Transportation Consultant Relationship Specialty Start Date End Date Onesimo Bruno MD PCP - General 08/11/06 Bhavna Mac, Elio [address]70 [place] [address] Pharmacist Pharmacist 07/11/18 Isaac Bro, RN Lead Brand Marketing Intern Primary Care - CC 09/01/18 Onesimo Bruno MD 1390 [place] [address] Assigned PCP 07/30/20 Nataliia Gomez MD [address] [place] [address], [address] [place] [address] Assigned Heart and Vascular Provider 08/29/20 10/08/22 [place] [address] [place] [address] [address] [place] [address] Assigned Allergy Provider 08/29/20 04/16/22 Rafita Ayers MD 909 [place] [address] Assigned Pulmonology Provider 10/12/20 Flo Henry MD 1875 [facility] 250 [place] [address] Assigned Behavioral Health Provider 09/21/20 Jana Vick, W Community Health Worker Primary Care - CC 06/08/21 Tor Joseph DPM 2945 [facility] [address] [place] [address] Assigned Musculoskeletal Provider 07/05/21 03/19/22 Lorri Larsen MD [address] [place] [address] Otolaryngology 07/21/21 Lorri Larsen MD [address] [place] [address] Assigned Surgical Provider 10/10/21 04/28/23 Rafita Ayers MD [address] [place] [address] Critical Care 11/30/21 Kaelyn New AuD [address] [place] [address] [phone] Internet Marketing Consultant Audiology 12/09/21 Marino Hayes MD [address] [place] [address] Cardiovascular Disease 09/28/22 Marino Hayes MD [address] [place] [address] Assigned Heart and Vascular Provider 10/09/22 documented as of this encounter
--- OUTSIDE RECORDS SUMMARY | 2023-05-21 07:09 | XMS_ITS | Encounter Summary ---
Author Name Unknown Organization [place] Address [address] [place] [address] Care Team Providers Care Improvement Leader Name Role Phone Onesimo Bruno MD Primary Care Provider [phone] Bhavna Mac PharmD Unavailable +[phone] Isaac Bro RN Unavailable +[phone] Ilda Tapia CHW Unavailable +[phone] Onesimo Bruno MD Unavailable [phone] Nataliia Gomez MD Unavailable Luly Grant MD Unavailable +[phone] Rafita Ayers MD Unavailable +[phone] Flo Henry MD Unavailable +[phone] Susan Robert CHW Unavailable Unavailable Jana Vick CHW Unavailable UnavailTor Brown DPM Unavailable +[phone] Lorri Larsen MD Unavailable +[phone] Lorri Larsen MD Unavailable +[phone] Rafita Ayers MD Unavailable +[phone] Kaelyn New Unavailable [phone] Marino [place] MD Unavailable + Marino Hayes MD Unavailable + Encounter Details Date Type Department Care Team (Late st Contact Info) Description 12/16/2020 [facility] Medical Advice [facility] 1875 [facility] [address] [place] [address] Nataliia Gomez MD 1600 [facility], [address] [place] [address] Social History Tobacco Use Types Packs/Day Years [...] on file documented as of this encounter Visit Diagnoses Not on filedocumented in this encounter Additional Health Concerns Assessment Noted Time PHQ-9 Depression Total Score: 7 11/05/19 21 4:49 PM CDT documented as of this encounter Care Teams Improvement Leader Relationship Specialty Start Date End Date Onesimo Bruno MD PCP - General 08/11/06 Bhavna Mac, GenesisD 870 [place] [address] Pharmacist Pharmacist 07/11/18 Isaac Bro, RN Lead Accounts Payable Administrator Primary Care - CC 09/01/18 Ilda Tapia CHW Community Health Worker Primary Care - CC 09/01/1804/22 Onesimo Bruno MD 1390 [place] [address] Assigned PCP 07/30/20 Nataliia Gomez MD [address] [facility], [address] [place] [address] Assigned Heart and Vascular Provider 08/29/20 10/08/22 [place] [address] [place] [address] [address] [place] [address] Assigned Allergy Provider 08/29/20 04/16/22 Rafita [place] MD [address] [place] [address] 274435 Assigned Pulmonology Provider 10/12/20 lFo Henry MD [address] [phone] Assigned Behavioral Health Provider 09/21/20 Susan Robert CHW Community Health Worker Primary Care - CC 04/23/2106/15/21 Jana Vick CHW Community Health Worker Primary Care - CC 06/08/21 Tor Joseph DPM [facility]5 [facility] [address] [place] [address] Assigned Musculoskeletal Provider 07/05/21 03/19/22 Lorri Larsen MD [address] [place] [address] 570385 Otolaryngology 07/21/21 Lorri Larsen MD 909 [place] [address] Assigned Surgical Provider 10/10/21 04/28/23 Rafita [place]yers MD 9 [place] [address] Critical Care 11/30/21 Kaelyn New, [place] [address] [place] [address] Family Assessment Worker Audiology 12/09/21 Marino [place] MD [address] [place] [address] Cardiovascular Disease 09/28/22 Marino [place] MD 6 [place] [address] Assigned Heart and Vascular Provider 10/09/22 documented as of this encounter
--- OUTSIDE RECORDS SUMMARY | 2023-05-21 07:09 | XMS_ITS | Encounter Summary ---
Author Name Unknown Organization [place] Address [address] [place] [address] Care Team Providers Care Medical Underwriter Name Role Phone Onesimo Bruno MD Primary Care Provider [phone] Bhavna Mac PharmD Unavailable +[phone] Isaac Bro RN Unavailable +[phone] Ilda Tapia CHW Unavailable +[phone] Onesimo Bruno MD Unavailable +[phone] Nataliia Gomez MD Unavailable Luly Grant MD Unavailable +[phone] Rafita Ayers MD Unavailable +[phone] Flo Henry MD Unavailable +[phone] Susan Robert CHW Unavailable Unavailable Jana Vick CHW Unavailable UnavailTor Brown DPM Unavailable +[phone] Lorri Larsen MD Unavailable +[phone] Lorri Larsen MD Unavailable +[phone] Rafita Ayers MD Unavailable +[phone] Kaelyn New Unavailable [phone] Marino Hayes MD Unavailable + Marino Hayes MD Unavailable + Encounter Details Date Type Department Care Team (Late st Contact Info) Description 01/24/2021 [facility] Medical Advice [facility] [address] [facility] [address] [place] [phone] Luly Grant MD 1654 [facility] [address] [place] [address] Social History Tobacco Use Types Packs/Day Years [...] as of this encounter Care Teams Medical Underwriter Relationship Specialty Start Date End Date Onesimo Bruno MD PCP - General 08/11/06 Bhavna Mac PharmD 870 [place] [address] Pharmacist Pharmacist 07/11/18 Isaac Bro, RN Lead Hops Farmworker Primary Care - CC 09/01/18 Ilda Tapia CHW Community Health Worker Primary Care - CC 09/01/1804/22 Onesimo Bruno MD 1390 [place] [address] Assigned PCP 07/30/20 Nataliia Gomez MD 1600 [facility], [address] [place] [address] Assigned Heart and Vascular Provider 08/29/20 10/08/22 Luly Grant MD [address] [facility] [address] [place], [place] [address] Assigned Allergy Provider 08/29/20 04/16/22 Rafita Ayers MD [address] [place] [address] 696775 Assigned Pulmonology Provider 10/12/20 Flo Henry MD [facility] [address] [phone] Assigned Behavioral Health Provider 09/21/20 Susan Robert CHW Community Health Worker Primary Care - CC 04/23/2106/15/21 aJna Vick CHW Community Health Worker Primary Care - CC 06/08/21 Tor Joseph DPM 2945 [facility] [address] [place] [address] Assigned Musculoskeletal Provider 07/05/21 03/19/22 Lorri Larsen MD [address] [place] [address] Otolaryngology 07/21/21 Lorri Larsen MD [address] [place] [address] Assigned Surgical Provider 10/10/21 04/28/23 Rafita Ayers MD 909 [place] [address] Critical Care 11/30/21 Kaelyn New AuD 1825 [place] [address] Commercial Finance Analyst Audiology 12/09/21 Marino [place] MD [address] [place] [address] Cardiovascular Disease 09/28/22 Marino Hayes MD 6 [place] [address] Assigned Heart and Vascular Provider 10/09/22 documented as of this encounter
--- OUTSIDE RECORDS SUMMARY | 2023-05-21 07:09 | XMS_ITS | Encounter Summary ---
Author Name Unknown Organization [place] Address [address] [place] [address] Care Team Providers Care Dexigraph Operator Name Role Phone Onesimo Bruno MD Primary Care Provider [phone] Bhavna Mac PharmD Unavailable +[phone] Isaac Bro RN Unavailable +[phone] Ilda Tapia CHW Unavailable +[phone] Onesimo Bruno MD Unavailable [phone] Nataliia Gomez MD Unavailable Luly Grant MD Unavailable +[phone] Rafita Ayers MD Unavailable +[phone] Flo Henry MD Unavailable +[phone] Susan Robert CHW Unavailable Unavailable Jana Vick CHW Unavailable UnavailTor Brown DPM Unavailable +[phone] Lorri Larsen MD Unavailable +[phone] Lorri Larsen MD Unavailable +[phone] Rafita Ayers MD Unavailable +[phone] Kaelyn New Unavailable +[phone] Marino Hayes MD Unavailable + Marino Hayes MD Unavailable + Encounter Details Date Type Department Care Team (Late st Contact Info) Description 10/14/2020 [facility] Medical Advice [facility] [address] [facility] [address] [place] [phone] Luly Grant MD 1655 [facility] [address] [place], [place] [phone] Social History Tobacco Use Types Packs/Day Years [...] Depression Total Score: 14 022 10:49 AM OPERATING ROOM REGISTERED NURSE documented as of this encounter Care Teams Dexigraph Operator Relationship Specialty Start Date End Date Onesimo Bruno MD PCP - General 08/11/06 Bhavna Mac, GenesisD [address]70 [place] [address] Pharmacist Pharmacist 07/11/18 Isaac Bro, RN Lead Medical Operations Supervisor Primary Care - CC 09/01/18 Ilda Tapia CHW Community Health Worker Primary Care - CC 09/01/1804/22 Onesimo Bruno MD 1390 [place] [address] Assigned PCP 07/30/20 Nataliia Gomez MD [address] [facility], [address] [place] [address] Assigned Heart and Vascular Provider 08/29/20 10/08/22 Luly Grant MD 1655 [facility] [address] [place] [address] Assigned Allergy Provider 08/29/20 04/16/22 Rafita Ayers MD [address] [place] [address] 878365 Assigned Pulmonology Provider 10/12/20 Flo Henry MD [facility] [address] [phone] Assigned Behavioral Health Provider 09/21/20 Susan Robert CHW Community Health Worker Primary Care - CC 04/23/2106/15/21 Jana Vick CHW Community Health Worker Primary Care - CC 06/08/21 Tor Joseph DPM [facility]5 [facility] [address] [place] [address] Assigned Musculoskeletal Provider 07/05/21 03/19/22 Lorri Larsen MD [address] [place] [address] 129965 Otolaryngology 07/21/21 Lorri Larsen MD 909 [place] [address] Assigned Surgical Provider 10/10/21 04/28/23 Rafita Ayers MD 9 [place] [address] Critical Care 11/30/21 Kaelyn New, [place] [address] [place] [address] Padded Products Finisher Audiology 12/09/21 Marino Hayes MD [address] [place] [address] Cardiovascular Disease 09/28/22 Marino Hayes MD [address] [place] [address] Assigned Heart and Vascular Provider 10/09/22 documented as of this encounter
--- OUTSIDE RECORDS SUMMARY | 2023-05-21 07:09 | XMS_ITS | Encounter Summary ---
Author Name Unknown Organization [place] Address [address] [place] [address] Care Team Providers Care Brick Mason Name Role Phone Onesimo Bruno MD Primary Care Provider [phone] Bhavna Mac PharmD Unavailable +[phone] Isaac Bro RN Unavailable +[phone] Ilda Tapia CHW Unavailable +[phone] Onesimo Bruno MD Unavailable +[phone] Nataliia Gomez MD Unavailable Luly Grant MD Unavailable +[phone] Rafita Ayers MD Unavailable +[phone] Flo Henry MD Unavailable +[phone] Susan Robert CHW Unavailable Unavailable Jana iVck CHW Unavailable UnavailTor Brown DPM Unavailable +[phone] Lorri Larsen MD Unavailable +[phone] Lorri Larsen MD Unavailable +[phone] Rafita Ayers MD Unavailable +[phone] Kaelyn New Unavailable +[phone] Marino Hayes MD Unavailable + Marino Hayes MD Unavailable Encounter Details Date Type Department Care Team (Late st Contact Info) Description 03/04/2021 MyC Medical Advice [facility] 1390 [place] [phone] Onesimo Bruno MD 1390 [place] [address] Social History Tobacco Use Types Packs/Day Years [...] COVID-19? No / Unsure 03/03/2021 3:44 PM WEIGHER AND CHARGER documented as of this encounter Plan of Treatment Not on file documented as of this encounter Visit Diagnoses Not on filedocumented in this encounter Additional Health Concerns Assessment Noted Time PHQ-9 Depression Total Score: 5 03/03/19 22 5:15 PM WEIGHER AND CHARGER documented as of this encounter Care Teams Brick Mason Relationship Specialty Start Date End Date Onesimo Bruno MD PCP - General 08/11/06 Bhavna Mac, GenesisD 870 [place] [address] Pharmacist Pharmacist 07/11/18 Isaac Bro, RN Lead Manufacturing Quality Manager Primary Care - CC 09/01/18 Ilda Tapia CHW Community Health Worker Primary Care - CC 09/01/1804/22 Onesimo Bruno MD 1390 [place] [address] Assigned PCP 07/30/20 Nataliia Gomez MD 1600 [facility], [address] [place] [address] Assigned Heart and Vascular Provider 08/29/20 10/08/22 Luly Grant MD 1655 [facility] [address] [place] [address] Assigned Allergy Provider 08/29/20 04/16/22 Rafita Ayers MD [address] [place] [address] 800955 Assigned Pulmonology Provider 10/12/20 Flo Henry MD [employer] [phone] Assigned Behavioral Health Provider 09/21/20 Susan Robert CHW Community Health Worker Primary Care - CC 04/23/2106/15/21 Jana Vick CHW Community Health Worker Primary Care - CC 06/08/21 Tor Joseph DPM [facility]5 [facility] [address] [place] [address] Assigned Musculoskeletal Provider 07/05/21 03/19/22 Lorri Larsen MD [address] [place] [address] 078905 Otolaryngology 07/21/21 Lorri Larsen MD 909 [place] [address] Assigned Surgical Provider 10/10/21 04/28/23 Rafita Ayers MD 9 [place] [address] Critical Care 11/30/21 Kaelyn New, Shena [address] [place] [address] Radiologic Tech Audiology 12/09/21 Marino Hayes MD [address] [place] [address] Cardiovascular Disease 09/28/22 Marino Hayes MD [address] [place] [address] Assigned Heart and Vascular Provider 10/09/22 documented as of this encounter
--- OUTSIDE RECORDS SUMMARY | 2023-05-21 07:09 | XMS_ITS | Encounter Summary ---
Author Name Unknown Organization [place] Address [address] [place] [address] Care Team Providers Care Armored Car Messenger Name Role Phone Onesimo Bruno MD Primary Care Provider [phone] Bhavna Mac PharmD Unavailable +[phone] Isaac Bro RN Unavailable +[phone] Onesimo Bruno MD Unavailable +[phone] Nataliia Gomez MD Unavailable Luly Grant MD Unavailable +[phone] Rafita Ayers MD Unavailable +[phone] Flo Henry MD Unavailable +[phone] Susan Robert CHW Unavailable Unavailable Jana Vick CHW Unavailable UnavailTor Brown DPM Unavailable +[phone] Lorri Larsen MD Unavailable +[phone] Lorri Larsen MD Unavailable +[phone] Rafita Ayers MD Unavailable +[phone] Kaelyn New Unavailable +[phone] Marino Hayes MD Unavailable + [phone] Marino Hayes MD Unavailable + [phone] Reason for Visit * Reason Comments Medication Refill Encounter Details Date Type Department Care Team (Late st Contact Info) Description 05/26/2021 Refill [facility] Care Coordination [address] [place] [phone] Onesimo Bruno MD [address] [place] [address] Medication Refill Social History Tobacco Use Types [...] Total Score: 5 03/03/19 22 5:15 PM FACILITY MECHANIC documented as of this encounter Care Teams Armored Car Messenger Relationship Specialty Start Date End Date Onesimo Bruno MD PCP - General 08/11/06 Bhavna Mac PharmD [address] [place] [address] Pharmacist Pharmacist 07/11/18 Isaac Bro RN Lead Communications Strategist Primary Care - CC 09/01/18 Onesimo Bruno MD 1390 [place] [address] Assigned PCP 07/30/20 Nataliia Gomez MD 1600 [facility], [address] [place] [address] Assigned Heart and Vascular Provider 08/29/20 10/08/22 Luly Grant MD 1655 [facility] [address] [place] [address] Assigned Allergy Provider 08/29/20 04/16/22 Rafita Ayers MD [address] [place] [address] Assigned Pulmonology Provider 10/12/20 Flo Henry MD [facility] [address] Assigned Behavioral Health Provider 09/21/20 Susan Robert W Community Health Worker Primary Care - CC 04/23/2106/15/21 Jana Vick CHW Community Health Worker Primary Care - CC 06/08/21 Tor Joseph DPM 2945 [facility] [address] [place] [address] Assigned Musculoskeletal Provider 07/05/21 03/19/22 Lorri Larsen MD [address] [place] [address] Otolaryngology 07/21/21 Lorri Larsen MD [address] [place] [address] 490475 Assigned Surgical Provider 10/10/21 04/28/23 Rafita Ayers MD [address] [place] [address] Critical Care 11/30/21 Kaelyn New AuD [address] [place] [address] Stranding Machine Operator Audiology 12/09/21 Marino Hayes MD [address] [place] [address] Cardiovascular Disease 09/28/22 Marino Hayes MD [address] [place] [address] 266055 Assigned Heart and Vascular Provider 10/09/22 documented as of this encounter
--- OUTSIDE RECORDS SUMMARY | 2023-05-21 07:09 | XMS_ITS | Encounter Summary ---
Author Name Unknown Organization [facility] Address [address] [place] [address] Care Team Providers Care Blue Leather Setter Name Role Phone Onesimo Bruno MD Primary Care Provider [phone] Bhavna Mac PharmD Unavailable +[phone] Isaac Bro RN Unavailable +[phone] Onesimo Bruno MD Unavailable +[phone] Nataliia Gomez MD Unavailable Luly Grant MD Unavailable +[phone] Rafita Ayers MD Unavailable +[phone] Flo Henry MD Unavailable +[phone] Jana Vick W Unavailable Unavailabl Tor Saldana DPGeeta Unavailable +[phone] Lorri Larsen MD Unavailable +[phone] Lorri Larsen MD Unavailable +[phone] Rafita Ayers MD Unavailable +[phone] Kaelyn New Unavailable +[phone] Marino Hayes MD Unavailable + Marino Hayes MD Unavailable + [phone] Encounter Details Date Type Department Care Team (Late st Contact Info) Description 09/10/2021 [facility] Care Coordination [address] [place] [phone] Jana Vick, CHW Social History Tobacco Use Types Packs/Day Years [...] documented as of this encounter Care Teams Blue Leather Setter Relationship Specialty Start Date End Date Onesimo Bruno MD PCP - General 08/11/06 Bhavna Mac, GenesisD 870 [place] [address] Pharmacist Pharmacist 07/11/18 Isaac Bro, RN Lead Credit Union Teller Primary Care - CC 09/01/18 Onesimo Bruno MD 1390 [place] [address] Assigned PCP 07/30/20 Nataliia Gomez MD 1600 [facility], [address] [place] [address] Assigned Heart and Vascular Provider 08/29/20 10/08/22 Luly Grant MD 1655 [facility] [address] [place] [address] Assigned Allergy Provider 08/29/20 04/16/22 Rafita Ayers MD [address] [place] [address] 669495 Assigned Pulmonology Provider 10/12/20 Flo Henry MD [address] [phone] Assigned Behavioral Health Provider 09/21/20 Jana Vick, W Community Health Worker Primary Care - CC 06/08/21 Tor Joseph DPM 2945 [facility] [address] [place] [address] Assigned Musculoskeletal Provider 07/05/21 03/19/22 Lorri Larsen MD [address] [place] [address] Otolaryngology 07/21/21 Lorri Larsen MD [address] [place] [address] Assigned Surgical Provider 10/10/21 04/28/23 Rafita Ayers MD [address] [place] [address] Critical Care 11/30/21 Kaelyn New AuD 1825 [place] [address] Game Trapper Audiology 12/09/21 Marino Hayes MD [address] [place] [address] Cardiovascular Disease 09/28/22 Marino Hayes MD 6 [place] [address] Assigned Heart and Vascular Provider 10/09/22 documented as of this encounter
--- OUTSIDE RECORDS SUMMARY | 2023-05-21 07:09 | XMS_ITS | Encounter Summary ---
Author Name Unknown Organization [facility] Address [address] [place] [address] Care Team Providers Care Amf Mechanic Name Role Phone Onesimo Bruno MD Primary Care Provider [phone] Bhavna Mac PharmD Unavailable +[phone] Isaac Bro RN Unavailable [phone] Ilda Tapia CHW Unavailable +[phone] Onesimo Bruno MD Unavailable [phone] Nataliia Gomez MD Unavailable Luly Grant MD Unavailable +[phone] Rafita Ayers MD Unavailable +[phone] Flo Henry MD Unavailable +[phone] Susan Robert CHW Unavailable Unavailable Jana Vick CHW Unavailable UnavailTor Brown DPM Unavailable +[phone] Lorri Larsen MD Unavailable +[phone] Lorri Larsen MD Unavailable +[phone] Rafita Ayers MD Unavailable +[phone] Kaelyn New Unavailable +[phone] Marino Hayes MD Unavailable + Marino Hayes MD Unavailable Encounter Details Date Type Department Care Team (Late st Contact Info) Description 01/24/2021 MyC Medical Advice [facility] 1390 [place] [phone] Onesimo Bruno MD [address]0 [place] [address] Social History Tobacco Use Types Packs/Day Years [...] documented as of this encounter Care Teams Amf Mechanic Relationship Specialty Start Date End Date Onesimo Bruno MD PCP - General 08/11/06 Bhavna Mac PharmD 870 [place] [address] Pharmacist Pharmacist 07/11/18 Isaac Bro, RN Lead Special Duty Nurse Primary Care - CC 09/01/18 Ilda Tapia CHW Community Health Worker Primary Care - CC 09/01/1804/22 Onesimo Bruno MD 1390 [place] [address] Assigned PCP 07/30/20 Nataliia Gomez MD 1600 [facility], [address] [place] [address] Assigned Heart and Vascular Provider 08/29/20 10/08/22 Luly Grant MD [address] [facility] [address] [place], [place] [address] Assigned Allergy Provider 08/29/20 04/16/22 Rafita Ayers MD [address] [place] [address] 649535 Assigned Pulmonology Provider 10/12/20 Flo Henry MD [facility] [address] [phone] Assigned Behavioral Health Provider 09/21/20 Susan Robert CHW Community Health Worker Primary Care - CC 04/23/2106/15/21 Jana Vick CHW Community Health Worker Primary Care - CC 06/08/21 Tor Joseph DPM [facility]5 [facility] [address] [place] [address] Assigned Musculoskeletal Provider 07/05/21 03/19/22 Lorri Larsen MD [address] [place] [address] Otolaryngology 07/21/21 Lorri Larsen MD [address] [place] [address] Assigned Surgical Provider 10/10/21 04/28/23 Rafita Ayers MD 909 [place] [address] Critical Care 11/30/21 Kaelyn New AuD [address] [place] [address] Trust Vault Clerk Audiology 12/09/21 Marino Hayes MD [address] [place] [address] Cardiovascular Disease 09/28/22 Marino Hayes MD 6 [place] [address] Assigned Heart and Vascular Provider 10/09/22 documented as of this encounter
--- OUTSIDE RECORDS SUMMARY | 2023-05-21 07:10 | XMS_ITS | Encounter Summary ---
Author Name Unknown Organization [facility] Address [address] [place] [address] Care Team Providers Care Flying Squad Salesperson Name Role Phone Onesimo Bruno MD Primary Care Provider [phone] Bhavna Mac PharmD Unavailable +[phone] Isaac Bro RN Unavailable +[phone] Ilda Tapia CHW Unavailable +[phone] Onesimo rBuno MD Unavailable [phone] Nataliia Gomez MD Unavailable Luly Grant MD Unavailable +[phone] Rafita Ayers MD Unavailable +[phone] Flo Henry MD Unavailable +[phone] Susan Robert CHW Unavailable Unavailable Jana Vick CHW Unavailable UnavailTor Brown DPM Unavailable +[phone] Lorri Larsen MD Unavailable +[phone] Lorri Larsen MD Unavailable +[phone] Rafita Ayers MD Unavailable +[phone] Kaelyn New Unavailable +[phone] Marino Hayes MD Unavailable + Marino Hayes MD Unavailable + Encounter Details Date Type Department Care Team (Late st Contact Info) Description 10/10/2020 MyC Medical Advice [facility] 2945 [facility] [address] [place] [phone] Luly Grant MD 1655 [facility] [address] [place], [place] [phone] Social History Tobacco Use Types Packs/Day Years [...] Depression Total Score: 14 022 10:49 AM DATA WAREHOUSING ENGINEER documented as of this encounter Care Teams Flying Squad Salesperson Relationship Specialty Start Date End Date Onesimo Bruno MD PCP - General 08/11/06 Bhavna aMc, GenesisD 870 [place] [address] Pharmacist Pharmacist 07/11/18 Isaac Bro, RN Lead Metaphysics Teacher Primary Care - CC 09/01/18 Ilda Tapia CHW Community Health Worker Primary Care - CC 09/01/1804/22 Onesimo Bruno MD 1390 [place] [address] Assigned PCP 07/30/20 Nataliia Gomez MD 1600 [facility], [address] [place] [address] Assigned Heart and Vascular Provider 08/29/20 10/08/22 Luly Grant MD 1655 [facility] [address] [place] [address] Assigned Allergy Provider 08/29/20 04/16/22 Rafita Ayers MD [address] [place] [address] 223555 Assigned Pulmonology Provider 10/12/20 Flo Henry MD [facility] [phone] Assigned Behavioral Health Provider 09/21/20 Susan Robert CHW Community Health Worker Primary Care - CC 04/23/2106/15/21 Jana Vick CHW Community Health Worker Primary Care - CC 06/08/21 Tor Joseph DPM Replaced by [facility]5 [facility] [address] [place] [address] Assigned Musculoskeletal Provider 07/05/21 03/19/22 Lorri Larsen MD [address] [place] [address] 664445 Otolaryngology 07/21/21 Lorri Larsen MD [address]09 [place] [address] Assigned Surgical Provider 10/10/21 04/28/23 Rafita Ayers MD [address] [place] [address] Critical Care 11/30/21 Kaelyn New, Shena [address] [place] [address] Make Up Girl Audiology 12/09/21 Marino Hayes MD [address] [place] [address] Cardiovascular Disease 09/28/22 Marino Hayes MD [address] [place] [address] Assigned Heart and Vascular Provider 10/09/22 documented as of this encounter
--- OUTSIDE RECORDS SUMMARY | 2023-05-21 07:10 | XMS_ITS | Encounter Summary ---
Author Name Unknown Organization [facility] Address [address] [place] [address] Care Team Providers Care Land Clearer Name Role Phone Onesimo Bruno MD Primary Care Provider [phone] Bhavna Mac PharmD Unavailable +[phone] Isaac Bro RN Unavailable [phone] Ilda Tapia CHW Unavailable +[phone] Onesimo Bruno MD Unavailable +[phone] Manuel Calderon MD, Jon Unavailable +[phone] Nataliia Gomez MD Unavailable Luly Grant MD Unavailable +[phone] Rafita Ayers MD Unavailable +[phone] Flo Henry MD Unavailable +[phone] Susan Robert CHW Unavailable Unavailable Jana Vick CHW Unavailable UnavailTor Brown DPM Unavailable +[phone] Lorri Larsen MD Unavailable +[phone] Lorri Larsen MD Unavailable +[phone] Rafita Ayers MD Unavailable +[phone] Kaelyn New Unavailable +[phone] Marino Hayes MD Unavailable + [phone] Marino Hayes MD Unavailable Encounter Details Date Type Department Care Team (Late st Contact Info) Description 07/15/2020 External Order Results Geeta Cifuentes [facility] [address] [place] [address] Outside, Provider Social History Tobacco Use Types [...] on file documented as of this encounter Procedures Procedure [...] CDT Verified by Sandeep Nation on 09/10/2020. [facility] [address] [facility] * [place] [address] Verified by Sandeep Nation on 09/10/2020. Patient Reported LABORATORY [facility] PFT COVID-19 EXTERNAL RESULTS COVID-19 External Result Scanned into Patient Record by [facility] Vane Refer to Result Comment/Narrative [place] [address], [facility] documented in this encounter Visit Diagnoses Not on filedocumented in this encounter Additional Health Concerns Assessment Noted Time PHQ-9 Depression Total Score: 11 03/03/ 022 10:44 AM SOD FARMER documented as of this encounter Care Teams Land Clearer Relationship Specialty Start Date End Date Onesimo Bruno MD PCP - General 08/11/06 Bhavna Mac, GenesisD 870 [place] [address] Pharmacist Pharmacist 07/11/18 Isaac Bro, RN Lead Labor Relations Or Personnel Negotiator Primary Care - CC 09/01/18 Ilda Tapia W Community Health Worker Primary Care - CC 09/01/1804/22 Onesimo Bruno MD 1390 [place] [address] Assigned PCP 07/30/20 Florentino Jackson MD [facility] [address] [place] [address] 602 [place] [address] Assigned Surgical Provider 08/29/20 09/27/20 Nataliia Gomez MD 1600 [facility], [address] [place], [place] [address] Assigned Heart and Vascular Provider 08/29/20 10/08/22 Luly Grant MD 1655 [facility] [address] [place], [place] [phone] Assigned Allergy Provider 08/29/20 04/16/22 Rafita Ayers MD 909 [place] [address] Assigned Pulmonology Provider 10/12/20 Flo Henry MD [address] [address] Assigned Behavioral Health Provider 09/21/20 Susan Robert, MORRISW Community Health Worker Primary Care - CC 04/23/2106/15/21 Jana Vick CHW Community Health Worker Primary Care - CC 06/08/21 Tor Joseph DPM 2945 [facility] [address] [place] [address] Assigned Musculoskeletal Provider 07/05/21 03/19/22 Lorri Larsen MD [address] [place] [address] Otolaryngology 07/21/21 Lorri Larsen MD [address] [place] [address] Assigned Surgical Provider 10/10/21 04/28/23 Rafita Ayers MD [address] [place] [address] Critical Care 11/30/21 Kaelyn New AuD 1825 [place] [address] Tick Sewer Audiology 12/09/21 Marino Hayes MD [address] [place] [address] Cardiovascular Disease 09/28/22 Marino Hayes MD [address] [place] [address] Assigned Heart and Vascular Provider 10/09/22 documented as of this encounter
--- OUTSIDE RECORDS SUMMARY | 2023-05-21 07:10 | XMS_ITS | Encounter Summary ---
Author Name Unknown Organization [facility] Address [address] [place] [address] Care Team Providers Care Marine Engineering Professor Name Role Phone Onesimo Bruno MD Primary Care Provider [phone] Bhavna Mac PharmD Unavailable +[phone] Isaac Bro RN Unavailable [phone] Ilda Tapia CHW Unavailable +[phone] Onesimo Bruno MD Unavailable [phone] Manuel Calderon MD, Jon Unavailable +[phone] Nataliia Gomez MD Unavailable Luly Grant MD Unavailable +[phone] Rafita Ayers MD Unavailable +[phone] Flo Henry MD Unavailable +[phone] Susan Robert CHW Unavailable Unavailable Jana Vick CHW Unavailable UnavailTor Brown DPM Unavailable +[phone] Lorri Larsen MD Unavailable +[phone] Lorri Larsen MD Unavailable +[phone] Rafita Ayers MD Unavailable +[phone] Kaelyn New Unavailable +[phone] Marino Hayes MD Unavailable + [phone] Marino Hayes MD Unavailable Encounter Details Date [...] Total Score: 7 03/03/19 22 10:04 AM BOAT CANVAS MAKER INSTALLER documented as of this encounter Care Teams Marine Engineering Professor Relationship Specialty Start Date End Date Onesimo Bruno MD PCP - General 08/11/06 Bhavna Mac, GenesisD 0 [place] [address] Pharmacist Pharmacist 07/11/18 Isaac Bro, RN Lead Food Checker Primary Care - CC 09/01/18 Ilda Tapia CHW Community Health Worker Primary Care - CC 09/01/1804/22 Onesimo Bruno MD 1390 [place] [address] Assigned PCP 07/30/20 Florentino Jackson MD [facility] [address] [place] [address] [address] [place] [address] Assigned Surgical Provider 08/29/20 09/27/20 Nataliia Gomez MD [address] [place] [address], [address] [place] [address] Assigned Heart and Vascular Provider 08/29/20 10/08/22 Luly Grant MD [address] [address] [place] [address] Assigned Allergy Provider 08/29/20 04/16/22 Rafita Ayers MD [address] [place] [address] Assigned Pulmonology Provider 10/12/20 Flo Henry MD [facility] [address] [address] Assigned Behavioral Health Provider 09/21/20 Susan Robert, W Community Health Worker Primary Care - CC 04/23/2106/15/21 Jana Vick CHW Community Health Worker Primary Care - CC 06/08/21 Tor Joseph DPM [facility]5 [facility] [address] [place] [address] Assigned Musculoskeletal Provider 07/05/21 03/19/22 Lorri Larsen MD [address] [place] [address] Otolaryngology 07/21/21 Lorri Larsen MD [address] [place] [address] Assigned Surgical Provider 10/10/21 04/28/23 Rafita Ayers MD [address] [place] [address] Critical Care 11/30/21 Kaelyn New AuD 1825 [place] [address] Funeral Location Manager Audiology 12/09/21 Marino Hayes MD [address] [place] [address] 303475 Cardiovascular Disease 09/28/22 Marino Hayes MD [address] [place] [address] 963975 Assigned Heart and Vascular Provider 10/09/22 documented as of this encounter
--- OUTSIDE RECORDS SUMMARY | 2023-05-21 07:10 | XMS_ITS | Encounter Summary ---
Author Name Unknown Organization [place] Address [address] [place] [address] Care Team Providers Care Residence Life Coordinator Name Role Phone Onesimo Bruno MD Primary Care Provider [phone] Bhavna Mac PharmD Unavailable +[phone] Isaac Bro RN Unavailable [phone] Ilda Tapia CHW Unavailable +[phone] Onesimo Bruno MD Unavailable +[phone] Manuel Calderon MD, Jon Unavailable +[phone] Nataliia Gomez MD Unavailable Luly Grant MD Unavailable +[phone] Rafita Ayers MD Unavailable +[phone] Flo Henry MD Unavailable +[phone] Susan Robert CHW Unavailable Unavailable Jana Vick CHW Unavailable UnavailTor Brown DPM Unavailable +[phone] Lorri Larsen MD Unavailable +[phone] Lorri Larsen MD Unavailable +[phone] Rafita Ayers MD Unavailable +[phone] Kaelyn New Unavailable +[phone] Marino Hayes MD Unavailable + [phone] Marino Hayes MD Unavailable Encounter Details Date [...] Total Score: 3 03/03/19 22 9:49 AM COMPUTER SYSTEM SPECIALIST documented as of this encounter Care Teams Residence Life Coordinator Relationship Specialty Start Date End Date Onesimo Bruno MD PCP - General 08/11/06 Bhavna Mac, PharmD [address] [place] [address] Pharmacist Pharmacist 07/11/18 Isaac Bro, RN Lead Stand Grinder Primary Care - CC 09/01/18 Ilda Tapia CHW Community Health Worker Primary Care - CC 09/01/1804/22 Onesimo Bruno MD [address]0 [place] [address] Assigned PCP 07/30/20 Florentino Jackson MD [facility] [address] [place] [address] 602 [place] [address] Assigned Surgical Provider 08/29/20 09/27/20 Nataliia Gomez MD [address] [place] [address], [address] [place] [address] Assigned Heart and Vascular Provider 08/29/20 10/08/22 Luly Grant MD [address] [facility] [address] [place] [address] Assigned Allergy Provider 08/29/20 04/16/22 Rafita Ayers MD [address] [place] [address] Assigned Pulmonology Provider 10/12/20 Flo Henry MD [facility] [address] Assigned Behavioral Health Provider 09/21/20 Susan Robert, W Community Health Worker Primary Care - CC 04/23/2106/15/21 Jana Vick CHW Community Health Worker Primary Care - CC 06/08/21 Tor Joseph DPM 29[address] [facility] [address] [place] [address] Assigned Musculoskeletal Provider 07/05/21 03/19/22 Lorri Larsen MD [address] [place] [address] Otolaryngology 07/21/21 Lorri Larsen MD [address] [place] [address] Assigned Surgical Provider 10/10/21 04/28/23 Rafita Ayers MD [address] [place] [address] Critical Care 11/30/21 Kaelyn New AuD [address] [place] [address] Home Care Music Therapist Audiology 12/09/21 Marino Hayes MD [address] [place] [address] Cardiovascular Disease 09/28/22 Marino Hayes MD [address] [place] [address] Assigned Heart and Vascular Provider 10/09/22 documented as of this encounter
--- OUTSIDE RECORDS SUMMARY | 2023-05-21 07:10 | XMS_ITS | Encounter Summary ---
Author Name Unknown Organization [place] Address [address] [place] [address] Care Team Providers Care Boiling House Oiler Name Role Phone Onesimo Bruno MD Primary Care Provider [phone] Bhavna Mac PharmD Unavailable +[phone] Isaac Bro RN Unavailable [phone] Ilda Tapia CHW Unavailable +[phone] Onesimo Bruno MD Unavailable +[phone] Manuel Calderon MD, Jon Unavailable +[phone] Nataliia Gomez MD Unavailable Luly Grant MD Unavailable +[phone] Rafita Ayers MD Unavailable +[phone] Flo Henry MD Unavailable +[phone] Susan Robert CHW Unavailable Unavailable Jana Vick CHW Unavailable UnavailTor Brown DPM Unavailable +[phone] Lorri Larsen MD Unavailable +[phone] Lorri Larsen MD Unavailable +[phone] Rafita Ayers MD Unavailable +[phone] Kaelyn New Unavailable +[phone] Marino Hayes MD Unavailable + [phone] Marino Hayes MD Unavailable +[phone] Reason for Visit * Reason Comments Clinic Care Coordination - Follow-up Encounter Details Date Type Department Care Team (Latest Contact Info) Description 08/14/2020 Communication - [facility] [address] [place] [address] Ilda Tapia CHW Clinic Care Coordination - [...] 9:16 AM Encounter Date: 08/14/2020 Status: Signed Steel Estimator: Ilda Kaye CHW (Community Health Worker) Patient [...] Depression Total Score: 14 022 10:49 AM PLATEN PRESS OPERATOR 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 documented as of this encounter Care Teams Boiling House Oiler Relationship Specialty Start Date End Date Onesimo Bruno MD PCP - General 08/11/06 Bhavna Mac, GenesisD [address]70 [place] [address] Pharmacist Pharmacist 07/11/18 Isaac Bro, RN Lead Medical Assistant Cardiology Primary Care - CC 09/01/18 Ilda Tapia W Community Health Worker Primary Care - CC 09/01/1804/22 Onesimo Bruno MD 1390 [place] [address] Assigned PCP 07/30/20 Florentino Jackson MD [facility] [address] [place] [address] 602 [place] [address] Assigned Surgical Provider 08/29/20 09/27/20 Nataliia Gomez MD [address] [facility], [address] [place] [address] Assigned Heart and Vascular Provider 08/29/20 10/08/22 Luly Grant MD [address] [facility] [address] [place] [address] Assigned Allergy Provider 08/29/20 04/16/22 Rafita Ayers MD [address] [place] [address] Assigned Pulmonology Provider 10/12/20 Flo Henry MD [address] [address] Assigned Behavioral Health Provider 09/21/20 Susan Robert, CHW Community Health Worker Primary Care - CC 04/23/2106/15/21 Jana Vick CHW Community Health Worker Primary Care - CC 06/08/21 Tor Joseph DPM 2945 [facility] [address] [place] [address] Assigned Musculoskeletal Provider 07/05/21 03/19/22 Lorri Larsen MD [address] [place] [address] Otolaryngology 07/21/21 Lorri Larsen MD [address] [place] [address] Assigned Surgical Provider 10/10/21 04/28/23 Rafita Ayers MD [address] [place] [address] Critical Care 11/30/21 Kaelyn New, Shena [address] [place] [address] Artificial Snow Making Machine Operator Audiology 12/09/21 Marino Hayes MD [address] [place] [address] Cardiovascular Disease 09/28/22 Marino Hayes MD [address] [place] [address] Assigned Heart and Vascular Provider 10/09/22 documented as of this encounter
--- OUTSIDE RECORDS SUMMARY | 2023-05-21 07:10 | XMS_ITS | Encounter Summary ---
Author Name Unknown Organization [place] Address [address] [place] [address] Care Team Providers Care Kiln Labourer Name Role Phone Onesimo Bruno MD Primary Care Provider [phone] Bhavna Mac PharmD Unavailable +[phone] Isaac Bro RN Unavailable [phone] Ilda Tapia CHW Unavailable +[phone] Onesimo Bruno MD Unavailable [phone] Manuel Calderon MD, Jon Unavailable +[phone] Natailia Gomez MD Unavailable Luly Grant MD Unavailable +[phone] Rafita Ayers MD Unavailable +[phone] Flo Henry MD Unavailable +[phone] Susan Robert CHW Unavailable Unavailable Jana Vick CHW Unavailable UnavailTor Brown DPM Unavailable +[phone] Lorri Larsen MD Unavailable +[phone] Lorri Larsen MD Unavailable +[phone] Rafita Ayers MD Unavailable +[phone] Kaelyn New Unavailable +[phone] Marino Hayes MD Unavailable + [phone] Marino Hayes MD Unavailable Reason for Visit * Reason Comments Clinic Care Coordination - Follow-up Encounter Details Date Type Department Care Team (Latest Contact Info) Description 08/06/2020 Communication - [facility] 139[address] [place] [address] Isaac Bro RN Clinic Care Coordination - Follow-up Social [...] concerns. Provided Cordell with telephone number for [facility] to schedule patient's CT colonoscopy. Senior Web Applications Developer also provided patient with the phone number to [facility] to schedule patient's follow up appointment. [...] like to see someone before November. Contacted [facility] and learned that Dr. JOHN Ji is not taking new patients at this time and Dr. Trevor Drummond is not longer practicing at [facility]. Patient was informed of this. Patient and Cordell were provided with the phone number for [facility] scheduling as there are other psychiatrists there [...] work with the weight loss Clinic in [facility]. Intervention/Education provided during outreach: Discussed the importance of taking his medicationsdaily as directed. Encouraged patient to be evaluated at Urgent Care related to ongoing persistent cough and fatigue. Outreach Frequency: monthly Plan: CCC RN will continue to monitor, support patient with current goal and will be available to assist as nursing needs arise. Labor Conciliator will follow up in two weeks. documented in this encounter Plan of Treatment Not on file documented as of this encounter Visit Diagnoses Not on filedocumented in this encounter Additional Health Concerns Assessment Noted Time PHQ-9 Depression Total Score: 14 022 10:49 AM MANAGING DIRECTOR documented as of this encounter Care Teams Kiln Labourer Relationship Specialty Start Date End Date Onesimo Bruno MD PCP - General 08/11/06 Bhavna Mac PharmD [address] [place] [address] Pharmacist Pharmacist 07/11/18 Isaac Bro, RN Lead Labor Conciliator Primary Care - CC 09/01/18 Ilda Tapia Vaibhav Community Health Worker Primary Care - CC 09/01/1804/22 Onesimo Bruno MD 1390 [place] [address] Assigned PCP 07/30/20 Florentino Jackson MD [facility] [address] [place] [address] 602 [place] [address] Assigned Surgical Provider 08/29/20 09/27/20 Nataliia Gomez MD [address] [place] [address], [address] [place] [address] Assigned Heart and Vascular Provider 08/29/20 10/08/22 [place] [address] [place] [address] [address] [place] [address] Assigned Allergy Provider 08/29/20 04/16/22 Rafita Ayers MD 909 [place] [address] Assigned Pulmonology Provider 10/12/20 Flo Henry MD 1875 [facility] [address] [place] [address] Assigned Behavioral Health Provider 09/21/20 Susan Robert, Vaibhav Community Health Worker Primary Care - CC 04/23/2106/15/21 Jana Vick W Community Health Worker Primary Care - CC 06/08/21 Tor Joseph DPM 29[address] [facility] [address] [place] [address] Assigned Musculoskeletal Provider 07/05/21 03/19/22 Lorri Larsen MD [address] [place] [address] Otolaryngology 07/21/21 Lorri Larsen MD [address] [place] [address] Assigned Surgical Provider 10/10/21 04/28/23 Rafita Ayers MD [address] [place] [address] Critical Care 11/30/21 Kaelyn New AuD [address] [place] [id number] Framing Specialist Audiology 12/09/21 Marino Hayes MD [address] [place] [address] 857515 Cardiovascular Disease 09/28/22 Marino Hayes MD [address] [place] [address] Assigned Heart and Vascular Provider 10/09/22 documented as of this encounter
--- OUTSIDE RECORDS SUMMARY | 2023-05-21 07:10 | XMS_ITS | Encounter Summary ---
Author Name Unknown Organization [place] Address [address] [place] [address] Care Team Providers Care Flight Communications Officer Name Role Phone Onesimo Bruno MD Primary Care Provider [phone] Bhavna Mac PharmD Unavailable +[phone] Isaac Bro RN Unavailable [phone] Ilda Tapia CHW Unavailable +[phone] Onesimo Bruno MD Unavailable [phone] Manuel Calderon MD, Jon Unavailable +[phone] Nataliia Gomez MD Unavailable Luly Grant MD Unavailable +[phone] Rafita Ayers MD Unavailable +[phone] Flo Henry MD Unavailable +[phone] Susan Robert CHW Unavailable Unavailable Jana Vick CHW Unavailable UnavailTor Brown DPM Unavailable +[phone] Lorri Larsen MD Unavailable +[phone] Lorri Larsen MD Unavailable +[phone] Rafita Ayers MD Unavailable +[phone] Kaelyn New Unavailable +[phone] Marino Hayes MD Unavailable + [phone] Marino Hayes MD Unavailable [phone] Reason for Visit * Reason Comments Clinic Care Coordination - Follow-up Encounter Details Date Type Department Care Team (Latest Contact Info) Description 08/01/2020 Communication - [facility] 139[address] [place] [address] Ilda Tapia CHW Clinic Care Coordination - [...] Depression Total Score: 14 022 10:49 AM SALES ESTIMATOR documented as of this encounter Care Teams Flight Communications Officer Relationship Specialty Start Date End Date Onesimo Bruno MD PCP - General 08/11/06 Bhavna Mac PharmD [address] [place] [address] Pharmacist Pharmacist 07/11/18 Isaac Bro, RN Lead Channel Development Manager Primary Care - CC 09/01/18 Ilda Tapia W Community Health Worker Primary Care - CC 09/01/1804/22 Onesimo Bruno MD 1390 [facility] [place] [address] Assigned PCP 07/30/20 Florentino Jackson MD [facility] [address] [place] [address] [address] [place] [address] Assigned Surgical Provider 08/29/20 09/27/20 Nataliia Gomez MD [address] [facility], [address] [place] [address] Assigned Heart and Vascular Provider 08/29/20 10/08/22 Luly Grant MD 1655 [facility] [address] [place], [place] [address] Assigned Allergy Provider 08/29/20 04/16/22 Rafita Ayers MD 909 [place] [address] Assigned Pulmonology Provider 10/12/20 Flo Henry MD [address] [facility] [address] [place], [place] [address] Assigned Behavioral Health Provider 09/21/20 Susan Robert, ELISA Community Health Worker Primary Care - CC 04/23/2106/15/21 Jana Vick CHW Community Health Worker Primary Care - CC 06/08/21 Tor Joseph DPM 2945 [facility] [address], [place] [address] Assigned Musculoskeletal Provider 07/05/21 03/19/22 Lorri Larsen MD [address] [place] [address] Otolaryngology 07/21/21 Lorri Larsen MD [address] [place] [address] Assigned Surgical Provider 10/10/21 04/28/23 Rafita Ayers MD [address] [place] [address] Critical Care 11/30/21 Kaelyn New AuD [address] [place] [address] Sandblast Operator Audiology 12/09/21 Marino Hayes MD [address] [place] [address] Cardiovascular Disease 09/28/22 Marino Hayes MD [address] [place] [address] Assigned Heart and Vascular Provider 10/09/22 documented as of this encounter
--- OUTSIDE RECORDS SUMMARY | 2023-05-21 07:10 | XMS_ITS | Encounter Summary ---
Author Name Unknown Organization [place] Address [address] [place] [address] Care Team Providers Care Refrigerating Technician Name Role Phone Onesimo Bruno MD Primary Care Provider [phone] Bhavna Mac PharmD Unavailable +[phone] Isaac Bro RN Unavailable [phone] Ilda Tapia CHW Unavailable +[phone] Onesimo Bruno MD Unavailable [phone] Manuel Calderon MD, Jon Unavailable +[phone] Nataliia Gomez MD Unavailable Luly Grant MD Unavailable +[phone] Rafita Ayers MD Unavailable +[phone] Flo Henry MD Unavailable +[phone] Susan Robert CHW Unavailable Unavailable Jana Vick CHW Unavailable UnavailTor Brown DPM Unavailable +[phone] Lorri Larsen MD Unavailable +[phone] Lorri Larsen MD Unavailable +[phone] Rafita Ayers MD Unavailable +[phone] Kaelyn New Unavailable +[phone] Marino Hayes MD Unavailable + [phone] Marino Hayes MD Unavailable Encounter Details Date [...] Depression Total Score: 11 022 10:44 AM GROUND CREW CHIEF documented as of this encounter Care Teams Refrigerating Technician Relationship Specialty Start Date End Date Onesimo Bruno MD PCP - General 08/11/06 Bhavna Mac, PharmD [address]70 [place] [address] Pharmacist Pharmacist 07/11/18 Isaac Bro, RN Lead Affirmative Action Specialist Primary Care - CC 09/01/18 Ilda Tapia Vaibhav Community Health Worker Primary Care - CC 09/01/1804/22 Onesimo Bruno MD 1390 [place] [address] Assigned PCP 07/30/20 Florentino Jackson MD [facility] [address] [place] [address] 602 [place] [address] Assigned Surgical Provider 08/29/20 09/27/20 Nataliia Gomez MD [address] [place] [address], [address] [place] [address] Assigned Heart and Vascular Provider 08/29/20 10/08/22 Luly Grant MD [address] [facility] [address] [place] [address] Assigned Allergy Provider 08/29/20 04/16/22 Rafita Ayers MD [address] [place] [address] Assigned Pulmonology Provider 10/12/20 Flo Henry MD [facility] [address] [address] Assigned Behavioral Health Provider 09/21/20 Susan Robert, W Community Health Worker Primary Care - CC 04/23/2106/15/21 Jana Vick CHW Community Health Worker Primary Care - CC 06/08/21 Tor Joseph DPM 2945 [facility] [address] [place] [address] Assigned Musculoskeletal Provider 07/05/21 03/19/22 Lorri Larsen MD [address] [place] [address] Otolaryngology 07/21/21 Lorri Larsen MD [address] [place] [address] Assigned Surgical Provider 10/10/21 04/28/23 Rafita Ayers MD [address] [place] [address] Critical Care 11/30/21 Kaelyn New AuD [address] [place] [address] Check Examiner Audiology 12/09/21 Marion Hayes MD [address] [place] [address] Cardiovascular Disease 09/28/22 Marino Hayes MD [address] [place] [address] 6614[address] Assigned Heart and Vascular Provider 10/09/22 documented as of this encounter
--- OUTSIDE RECORDS SUMMARY | 2023-05-21 07:10 | XMS_ITS | Encounter Summary ---
Author Name Unknown Organization [place] Address [address] [place] [address] Care Team Providers Care Wood Planer Name Role Phone Onesimo Bruno MD Primary Care Provider [phone] Bhavna Mac PharmD Unavailable +[phone] Isaac Bro RN Unavailable [phone] Ilda Tapia CHW Unavailable +[phone] Onesimo Bruno MD Unavailable [phone] Manuel Calderon MD, Jon Unavailable +[phone] Nataliia Gomez MD Unavailable Luly Grant MD Unavailable +[phone] Rafita Ayers MD Unavailable +[phone] Flo Henry MD Unavailable +[phone] Susan Robert CHW Unavailable Unavailable Jana Vick CHW Unavailable UnavailTor Brown DPM Unavailable +[phone] Lorri Larsen MD Unavailable +[phone] Lorri Larsen MD Unavailable +[phone] Rafita Ayers MD Unavailable +[phone] Kaelyn New Unavailable +[phone] Marino Hayes MD Unavailable + [phone] Marino Hayes MD Unavailable Encounter Details Date [...] documented as of this encounter Care Teams Wood Planer Relationship Specialty Start Date End Date Onesimo Bruno MD PCP - General 08/11/06 Bhavna Mac, PharmD [address] [place] [address] Pharmacist Pharmacist 07/11/18 Isaac Bro, RN Lead Ammonia Refrigeration Worker Primary Care - CC 09/01/18 Ilda Tapia CHW Community Health Worker Primary Care - CC 09/01/1804/22 Onesimo Bruno MD 1390 [place] [address] Assigned PCP 07/30/20 Florentino Jackson MD [facility] [address] [place] [address] 602 [place] [address] Assigned Surgical Provider 08/29/20 09/27/20 Nataliia Gomez MD [address] [place] [address], [address] [place] [address] Assigned Heart and Vascular Provider 08/29/20 10/08/22 Luly Grant MD [address] [facility] [address] [place] [address] Assigned Allergy Provider 08/29/20 04/16/22 Rafita Ayers MD [address] [place] [address] Assigned Pulmonology Provider 10/12/20 Flo Henry MD [facility] [address] Assigned Behavioral Health Provider 09/21/20 Susan Robert, W Community Health Worker Primary Care - CC 04/23/2106/15/21 Jana Vick CHW Community Health Worker Primary Care - CC 06/08/21 Tor Joseph DPM 2945 [facility] [address] [place] [address] Assigned Musculoskeletal Provider 07/05/21 03/19/22 Lorri Larsen MD [address] [place] [address] Otolaryngology 07/21/21 Lorri Larsen MD [address] [place] [address] Assigned Surgical Provider 10/10/21 04/28/23 Rafita Ayers MD [address] [place] [address] Critical Care 11/30/21 Kaelyn New AuD [address] [place] [address] Assistant Office Manager Audiology 12/09/21 Marino Hayes MD [address] [place] [address] Cardiovascular Disease 09/28/22 Marino Hayes MD [address] [place] [address]395 Assigned Heart and Vascular Provider 10/09/22 documented as of this encounter
--- OUTSIDE RECORDS SUMMARY | 2023-05-21 07:10 | XMS_ITS | Encounter Summary ---
Author Name Unknown Organization [facility] Address [address] [place] [address] Care Team Providers Care Montessori Teacher Name Role Phone Onesimo Bruno MD Primary Care Provider [phone] Bhavna Mac PharmD Unavailable +[phone] Isaac Bro RN Unavailable [phone] Ilda Tapia CHW Unavailable +[phone] Onesimo Bruno MD Unavailable [phone] Manuel Calderon MD, Jon Unavailable +[phone] Nataliia Gomez MD Unavailable Luly Grant MD Unavailable +[phone] Rafita Ayers MD Unavailable +[phone] Flo Henry MD Unavailable +[phone] Susan Robert CHW Unavailable Unavailable Jana Vick CHW Unavailable UnavailTor Brown DPM Unavailable +[phone] Lorri Larsen MD Unavailable +[phone] Lorri Larsen MD Unavailable +[phone] Rafita Ayers MD Unavailable +[phone] Kaelyn New Unavailable +[phone] Marino Hayes MD Unavailable + [phone] Marino Hayes MD Unavailable Reason for Visit * Reason Comments Other Inpatient Follow Up; [facility] 08/11;08/13; Atypical Pneumonia x 3 weeks Encounter Details Date Type Department Care Team (Late st Contact Info) Description 08/19/2020 Office Visit - [facility] [address] [place] [phone] Onesimo Bruno MD [address] [place] [address] Atypical pneumonia; NAVAS (dyspnea on exertion); Wheezing; [...] 2:42 PM Encounter Date: 08/19/2020 Status: Signed Book Publisher: Onesimo Bruno MD (Physician) Office Visit - Follow Up Roger Luong Dr. 69 y.o. male Date of Visit: 08/19/2020 Chief Complaint Patient presents with ? Inpatient Follow Up [facility] 08/11;08/13; Atypical Pneumonia x 3 [...] he was in the emergency room at [place] on several occasions with cough and shortness of breath. He was told he had an atypical pneumonia and sent out on prednisone and Z-Rober. He was also given prednisone by his cake froster Dr. Grant here recently. He continues to [...] MOUTH DAILY 90 tablet 2 ? nebulizers [facility] Please dispense one machine and associated necessary [...] - 11.0 thou/uL 08/19/2020 3:07 PM CDT [facility] RBC Count 4.45 4.40 - 6.20 mill/uL 08/19/2020 3:07 PM CDT [facility] Hemoglobin 13.8(L) 14.0 - 18.0 g/dL 08/19/2020 3:07 PM CDT [facility] Hematocrit 42.4 40.0 - 54.0 % 08/19/2020 3:07 PM CDT [facility] MCV 95 80 - 100 fL 08/19/2020 3:07 PM CDT [facility] MCH 31.0 27.0 - 34.0 pg 08/19/2020 3:07 PM CDT [facility] MCHC 32.5 32.0 - 36.0 g/dL 08/19/2020 3:07 PM CDT [facility] RDW 14.0 11.0 - 14.5 % 08/19/2020 3:07 PM CDT [facility] Platelet Count 156 140 - 440 thou/uL 08/19/2020 3:07 PM CDT [facility] Mean Platelet Volume 9.4 7.0 - 10.0 fL 08/19/2020 3:07 PM CDT [facility] % Neutrophils 66 50 - 70 % 08/19/2020 3:07 PM CDT [facility] % Lymphocytes 26 20 - 40 % 08/19/2020 3:07 PM CDT [facility] % Monocytes 7 2 - 10 % 08/19/2020 3:07 PM CDT [facility] % Eosinophils 0 0 - 6 % 08/19/2020 3:07 PM CDT [facility] % Basophils 0 0 - 2 % 08/19/2020 3:07 PM CDT [facility] % Immature Granulocytes 0 <=0 % 08/19/2020 3:07 PM CDT [facility] Absolute Neutrophils 5.4 2.0 - 7.7 thou/uL 08/19/2020 3:07 PM CDT [facility] Absolute Lymphocytes 2.2 0.8 - 4.4 thou/uL 08/19/2020 3:07 PM CDT [facility] Absolute Monocytes 0.6 0.0 - 0.9 thou/uL 08/19/2020 3:07 PM CDT [facility] Eosinophils Absolute 0.0 0.0 - 0.4 thou/uL 08/19/2020 3:07 PM CDT [facility] Absolute Basophils 0.0 0.0 - 0.2 thou/uL 08/19/2020 3:07 PM CDT [facility] Absolute Immature Granulocytes 0.0 <=0.0 thou/uL 08/19/2020 3:07 PM CDT [facility] Blood specimen (specimen) Venipuncture / Unknown 08/19/2020 2:58 PM CDT 08/19/2020 2:58 PM CDT Onesimo Bruno MD LAB - BLOOD ORDERABL ES Performing Organization Address [facility] de Phone Number [facility] [address] [address], [facility] [address] [place] [address] * (ABNORMAL) Valproic acid (08/19/2020 2:58 PM CDT) Valproic acid 16.0(L) 50.0 - 150.0 ug/mL 08/19/2020 6:21 PM CDT [facility] Comment: Recommended therapeutic trough conc range when used for manic episodes associated with bipolar disorder: 50-125 ug/ml. Blood specimen (specimen) Venipuncture / Unknown 08/19/2020 2:58 PM CDT 08/19/2020 5:30 PM CDT Onesimo Bruno MD LAB - BLOOD ORDERABL ES Performing Organization Address [facility] Co de Phone Number [facility] [address] [address], [facility] [phone] [facility] [address] [place] [address] * (ABNORMAL) Hepatic function panel (08/19/2020 2:58 PM CDT) Bilirubin Total 0.4 0.0 - 1.0 mg/dL 08/19/2020 6:09 PM CDT [facility] Bilirubin Direct 0.1 <=0.5 mg/dL 08/19/2020 6:09 PM CDT [facility] Protein Total 5.9(L) 6.0 - 8.0 g/dL 08/19/2020 6:09 PM CDT [facility] Albumin 3.2(L) 3.5 - 5.0 g/dL 08/19/2020 6:09 PM CDT [facility] Alkaline Phosphatase 50 45 - 120 U/L 08/19/2020 6:09 PM CDT [facility] AST 19 0 - 40 U/L 08/19/2020 6:09 PM CDT [facility] ALT 15 0 - 45 U/L 08/19/2020 6:09 PM CDT [facility] Blood specimen (specimen) Venipuncture / Unknown 08/19/2020 2:58 PM CDT 08/19/2020 5:30 PM CDT Onesimo Bruno MD LAB - BLOOD ORDERABL ES [facility] [address] [place] [address], [facility] [phone] [facility] [address] [place] [address] * EKG 12-lead, tracing only (08/19/2020) Systolic Blood Pressure 08/20/2020 1:31 PM CDT [facility] Diastolic Blood Pressure 08/20/2020 1:31 PM CDT [facility] Ventricular Rate 97 BPM 08/21/19 1:31 PM CDT [facility] Atrial Rate 97 BPM 08/20/2020 1:31 PM CDT [facility] MI Interval 154 ms 08/20/2020 1:31 PM CDT [facility] QRS Duration 86 ms 08/20/2020 1:31 PM CDT [facility] QT 336 ms 08/20/2020 1:31 PM CDT [facility] QTc 426 ms 08/20/2020 1:31 PM CDT [facility] CON[facility] P [place] 22 degrees 08/20/2020 1:31 PM CDT [facility] CON[facility] R AXIS 54 degrees 08/20/2020 1:31 PM CDT [facility] CON[facility] T [place] 52 degrees 08/20/2020 1:31 PM CDT [facility] Interpretation ECG Sinus rhythm Normal ECG When compared with ECG of 28-JAN-2019 18:10, No significant change was found Confirmed by FAINA ??MATTIE SALGUERO LOC: ([id number]) on 08/20/2020 1:31:56 PM 08/20/2020 1:31 PM [...] Depression Total Score: 14 022 10:49 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 documented as of this encounter Care Teams Montessori Teacher Relationship Specialty Start Date End Date Onesimo Bruno MD PCP - General 08/11/06 Bhavna Mac, GenesisD [address] [place] [address] Pharmacist Pharmacist 07/11/18 Isaac Bro, RN Lead Scouring Train Operator Primary Care - CC 09/01/18 Ilda Tapia CHW Community Health Worker Primary Care - CC 09/01/1804/22 Onesimo Bruno MD [address] [place] [address] [place] [address] Assigned PCP 07/30/20 Florentino Jackson MD [facility] [address] [facility] N [facility] 602 [place] [address] Assigned Surgical Provider 08/29/20 09/27/20 Nataliia Gomez MD [address] [facility], [address] [place] [address] Assigned Heart and Vascular Provider 08/29/20 10/08/22 Luly Grant MD 16[address] [facility] [address] [place] [address] Assigned Allergy Provider 08/29/20 04/16/22 Rafita Ayers MD [address] [place] [address] Assigned Pulmonology Provider 10/12/20 Flo Henry MD 1875 [facility] 250 [place] [address] Assigned Behavioral Health Provider 09/21/20 Susan Robert, CHW Community Health Worker Primary Care - CC 04/23/2106/15/21 Jana Vick CHW Community Health Worker Primary Care - CC 06/08/21 Tor Joseph DPM [address] [facility] [address] [place], [place] [phone] Assigned Musculoskeletal Provider 07/05/21 03/19/22 Lorri Larsen MD [address] [place] [address] [id number] Otolaryngology 07/21/21 Lorri Larsen MD [address] [place] [address] Assigned Surgical Provider 10/10/21 04/28/23 Rafita Ayers MD [address] [place] [address] Critical Care 11/30/21 Kaelyn New, [place] [address] [place] [address] Cotton Gin Yard Supervisor Audiology 12/09/21 Marino Hayes MD [address] [place] [address] Cardiovascular Disease 09/28/22 Marino Hayes MD [address] [place] [address] Assigned Heart and Vascular Provider 10/09/22 documented as of this encounter
--- OUTSIDE RECORDS SUMMARY | 2023-05-21 07:10 | XMS_ITS | Encounter Summary ---
Author Name Unknown Organization [facility] Address [address] [place] [address] Care Team Providers Care Defect Repairer Glassware Name Role Phone Onesimo Bruno MD Primary Care Provider [phone] Bhavna Mac PharmD Unavailable +[phone] Isaac Bro RN Unavailable [phone] Ilda Tapia CHW Unavailable +[phone] Onesimo Bruno MD Unavailable [phone] Nataliia Gomez MD Unavailable Luly Grant MD Unavailable +[phone] Rafita Ayers MD Unavailable +[phone] Flo Henry MD Unavailable +[phone] Susan Robert CHW Unavailable Unavailable Jana Vick CHW Unavailable UnavailTor Brown DPM Unavailable +[phone] Lorri Larsen MD Unavailable +[phone] Lorri Larsen MD Unavailable +[phone] Rafita Ayers MD Unavailable +[phone] Kaelyn New Unavailable [phone] Marino Hayes MD Unavailable + Marino Hayes MD Unavailable + Encounter Details Date Type Department Care Team (Late st Contact Info) Description 10/12/[address] [facility] [address] 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 documented as of this encounter Care Teams Defect Repairer Glassware Relationship Specialty Start Date End Date Onesimo Bruno MD PCP - General 08/11/06 Bhavna Mac, GenesisD [address]70 [place] [address] Pharmacist Pharmacist 07/11/18 Isaac Bro, RN Lead Operations Support Specialist Primary Care - CC 09/01/18 Ilda Tapia CHW Community Health Worker Primary Care - CC 09/01/1804/22 Onesimo Bruno MD 1390 [place] [address] Assigned PCP 07/30/20 Nataliia Gomez MD [address] [facility], [address] [place] [address] Assigned Heart and Vascular Provider 08/29/20 10/08/22 Luly Grant MD 1655 [facility] [address] [place] [address] Assigned Allergy Provider 08/29/20 04/16/22 Rafita Ayers MD [address] [place] [address] 852245 Assigned Pulmonology Provider 10/12/20 Flo Henry MD [address] [phone] Assigned Behavioral Health Provider 09/21/20 Susan Robert CHW Community Health Worker Primary Care - CC 04/23/2106/15/21 Jana Vick CHW Community Health Worker Primary Care - CC 06/08/21 Tor Joseph DPM [facility] [address] [place] [address] Assigned Musculoskeletal Provider 07/05/21 03/19/22 Lorri Larsen MD [address] [place] [address] Otolaryngology 07/21/21 Lorri Larsen MD 909 [place] [address] Assigned Surgical Provider 10/10/21 04/28/23 Rafita Ayers MD 9 [place] [address] Critical Care 11/30/21 Kaelyn New, [place] [address] [place] [address] Research Nurse Audiology 12/09/21 Marino Hayes MD [address] [place] [address] Cardiovascular Disease 09/28/22 Marino Hayes MD [address] [place] [address] Assigned Heart and Vascular Provider 10/09/22 documented as of this encounter
--- OUTSIDE RECORDS SUMMARY | 2023-05-21 07:11 | XMS_ITS | Encounter Summary ---
Author Name Unknown Organization [facility] Address [address] [place] [address] Care Team Providers Care Embedder Name Role Phone Onesimo Bruno MD Primary Care Provider [phone] Bhavna Mac PharmD Unavailable +[phone] Isaac Bro RN Unavailable [phone] Ilda Tapia CHW Unavailable +[phone] Onesimo Bruno MD Unavailable [phone] Manuel Calderon MD, Jon Unavailable +[phone] Nataliia Gomez MD Unavailable Luly Grant MD Unavailable +[phone] Rafita Ayers MD Unavailable +[phone] Flo Henry MD Unavailable +[phone] Susan Robert CHW Unavailable Unavailable Jana Vick CHW Unavailable UnavailTor Brown DPM Unavailable +[phone] Lorri Larsen MD Unavailable +[phone] Lorri Larsen MD Unavailable +[phone] Rafita Ayers MD Unavailable +[phone] Kaelyn New Unavailable +[phone] Marino Hayes MD Unavailable + [phone] Marino Hayes MD Unavailable Encounter Details Date [...] documented as of this encounter Care Teams Embedder Relationship Specialty Start Date End Date Onesimo Bruno MD PCP - General 08/11/06 Bhavna Mac, PharmD [address] [place] [address] Pharmacist Pharmacist 07/11/18 Isaac Bro, RN Lead Director Water [employer] Waste Services Primary Care - CC 09/01/18 Ilda Tapia CHW Community Health Worker Primary Care - CC 09/01/1804/22 Onesimo Bruno MD [address]0 [place] [address] Assigned PCP 07/30/20 Florentino Jackson MD [facility] [address] [place] [address] 602 [place] [address] Assigned Surgical Provider 08/29/20 09/27/20 Nataliia Gomez MD [address] [place] [address], [address] [place] [address] Assigned Heart and Vascular Provider 08/29/20 10/08/22 Luly Grant MD [address] [facility] [address] [place] [address] Assigned Allergy Provider 08/29/20 04/16/22 Rafita Ayers MD [address] [place] [address] Assigned Pulmonology Provider 10/12/20 Flo Henry MD [facility] [address] [address] Assigned Behavioral Health Provider 09/21/20 Susan Robert, W Community Health Worker Primary Care - CC 04/23/2106/15/21 Jana Vick CHW Community Health Worker Primary Care - CC 06/08/21 Tor Joseph DPM 2945 [facility] [address] [place] [address] Assigned Musculoskeletal Provider 07/05/21 03/19/22 Lorri Larsen MD [address] [place] [address] Otolaryngology 07/21/21 Lorri Larsen MD [address] [place] [address] Assigned Surgical Provider 10/10/21 04/28/23 Rafita Ayers MD [address] [place] [address] Critical Care 11/30/21 Kaelyn New AuD [address] [place] [address] Commercial Loan Underwriter Audiology 12/09/21 Marino Hayes MD [address] [place] [address] Cardiovascular Disease 09/28/22 Marino Hayes MD [address] [place] [address]405 Assigned Heart and Vascular Provider 10/09/22 documented as of this encounter
--- OUTSIDE RECORDS SUMMARY | 2023-05-21 07:11 | XMS_ITS | Encounter Summary ---
Author Name Unknown Organization [facility] Address [address] [place] [address] Care Team Providers Care Manager Basketball Name Role Phone Onesimo Bruno MD Primary Care Provider [phone] Bhavna Mac PharmD Unavailable [phone] Isaac Bro RN Unavailable [phone] Ilda Tapia CHW Unavailable +[phone] Onesimo Bruno MD Unavailable [phone] Manuel Calderon MD, Jon Unavailable +[phone] Nataliia Gomez MD Unavailable Luly Grant MD Unavailable +[phone] Rafita Ayers MD Unavailable +[phone] Flo Henry MD Unavailable +[phone] Susan Robert CHW Unavailable Unavailable Jana Vick CHW Unavailable UnavailTor Brown DPM Unavailable +[phone] Lorri Larsen MD Unavailable +[phone] Lorri Larsen MD Unavailable +[phone] Rafita Ayers MD Unavailable +[phone] Kaelyn New Unavailable +[phone] Marino Hayes MD Unavailable + [phone] Marino Hayes MD Unavailable Encounter Details Date [...] documented as of this encounter Care Teams Manager Basketball Relationship Specialty Start Date End Date Onesimo Bruno MD PCP - General 08/11/06 Bhavna Mac, PharmD [address] [place] [address] Pharmacist Pharmacist 07/11/18 Isaac Bro, RN Lead Central Supply Tech Primary Care - CC 09/01/18 Ilda Tapia CHW Community Health Worker Primary Care - CC 09/01/1804/22 Onesimo Bruno MD 1390 [place] [address] Assigned PCP 07/30/20 Florentino Jackson MD [facility] [address] [place] [address] 602 [place] [address] Assigned Surgical Provider 08/29/20 09/27/20 Nataliia Gomez MD [address] [place] [address], [address] [place] [address] Assigned Heart and Vascular Provider 08/29/20 10/08/22 Luly Grant MD [address] [facility] [address] [place] [address] Assigned Allergy Provider 08/29/20 04/16/22 Rafita Ayers MD [address] [place] [address] Assigned Pulmonology Provider 10/12/20 Flo Henyr MD [employer] [address] Assigned Behavioral Health Provider 09/21/20 Susan Robert, W Community Health Worker Primary Care - CC 04/23/2106/15/21 Jana Vick CHW Community Health Worker Primary Care - CC 06/08/21 Tor Joseph DPM 2945 [facility] [address] [place] [address] Assigned Musculoskeletal Provider 07/05/21 03/19/22 Lorri Larsen MD [address] [place] [address] Otolaryngology 07/21/21 Lorri Larsen MD [address] [place] [address] Assigned Surgical Provider 10/10/21 04/28/23 Rafita Ayers MD [address] [place] [address] Critical Care 11/30/21 Kaelyn New AuD [address] [place] [address] Behavioral Health Director Audiology 12/09/21 Marino Hayes MD [address] [place] [address] Cardiovascular Disease 09/28/22 Marino Hayes MD [address] [place] [address] Assigned Heart and Vascular Provider 10/09/22 documented as of this encounter
--- OUTSIDE RECORDS SUMMARY | 2023-05-21 07:11 | XMS_ITS ---
Author Name Unknown Organization [facility] Address [address] [place] [address] Care Team Providers Care Group Reservations Coordinator Name Role Phone Onesimo Bruno MD Primary Care Provider Bhavna Mac PharmD Unavailable [phone] Isaac Bro RN Unavailable [phone] Onesimo Bruno MD Unavailable [phone] Rafita Ayers MD Unavailable +[phone] Flo Henry MD Unavailable +[phone] Jana Vick CHVaibhav Unavailable Unavailabl Lorri Luo MD Unavailable +[phone] Rafita Ayers MD Unavailable +[phone] Kaelyn New Unavailable +[phone] Marino Hayes MD Unavailable +[phone] Marino Hayes MD Unavailable + [phone] Primary Care Care Coordination Status:Enrolled (Active) Start date:11/06/2019 Enrollment date:11/06/2019 Case Team Name Relationship Phone Isaac Bro, RN Lead Inpatient Auditor(Respons ible Staff) [phone] Jana Vick CHW Community Health Worker Continued Care and Services Coordination
--- OUTSIDE RECORDS SUMMARY | 2023-05-21 07:11 | XMS_ITS | Encounter Summary ---
Author Name Unknown Organization [facility] Address [address] [place] [address] Care Team Providers Care Chainstitch Zipper Setter Name Role Phone Onesimo Bruno MD Primary Care Provider [phone] Bhavna Mac PharmD Unavailable [phone] Isaac Bro RN Unavailable [phone] Ilda Tapia CHW Unavailable +[phone] Onesimo Bruno MD Unavailable [phone] Manuel Calderon MD, Jon Unavailable [phone] Nataliia Gomez MD Unavailable Luly Grant MD Unavailable +[phone] Rafita Ayers MD Unavailable +[phone] Flo Henry MD Unavailable +[phone] Susan Robert CHW Unavailable Unavailable Jana Vick CHW Unavailable UnavailTor Brown DPM Unavailable +[phone] Lorri Larsen MD Unavailable +[phone] Lorri Larsen MD Unavailable +[phone] Rafita Ayers MD Unavailable +[phone] Kaelyn New Unavailable +[phone] Marino Hayes MD Unavailable + [phone] Marino Hayes MD Unavailable [phone] Encounter Details Date Type Department Care Team [...] on filedocumented in this encounter Care Teams Chainstitch Zipper Setter Relationship Specialty Start Date End Date Onesimo Bruno MD PCP - General 08/11/06 Bhavna Mac, Elio [address] [place] [address] Pharmacist Pharmacist 07/11/18 Isaac Bro, RN Lead Cardiac Sonographer Primary Care - CC 09/01/18 Ilda Tapia CHW Community Health Worker Primary Care - CC 09/01/1804/22 Onesimo Bruno MD [address] [place] [address] Assigned PCP 07/30/20 Florentino Jackson MD [facility] [address] [place] [address] 602 [place] [address] Assigned Surgical Provider 08/29/20 09/27/20 Nataliia Gomez MD [address] [facility], [address] [place] [address] Assigned Heart and Vascular Provider 08/29/20 10/08/22 Luly Grant MD 1655 [facility] [address] [place], [place] [address] Assigned Allergy Provider 08/29/20 04/16/22 Rafita Ayers MD [address] [place] [address] 565615 Assigned Pulmonology Provider 10/12/20 Flo Henry MD 1875 [facility] [place] [address] [place] [address] [id number] Assigned Behavioral Health Provider 09/21/20 Susan Robert W Community Health Worker Primary Care - CC 04/23/2106/15/21 Jana Vick CHW Community Health Worker Primary Care - CC 06/08/21 Tor Joseph DPM 2945 [facility] [address] [place] [address] Assigned Musculoskeletal Provider 07/05/21 03/19/22 Lorri Larsen MD [address] [place] [address] Otolaryngology 07/21/21 Lorri Larsen MD [address] [place] [address] Assigned Surgical Provider 10/10/21 04/28/23 Rafita Ayers MD [address] [place] [address] Critical Care 11/30/21 Kaelyn New AuD [address] [place] [address] Discotheque Dancer Audiology 12/09/21 Marino Hayes MD [address] [place] [address] 343845 Cardiovascular Disease 09/28/22 Marino Hayes MD [address] [place] [address] 821185 Assigned Heart and Vascular Provider 10/09/22 documented as of this encounter
--- OUTSIDE RECORDS SUMMARY | 2023-05-21 07:11 | XMS_ITS | Clinical Summary ---
Author Name Unknown Organization [facility] Address [place], [place] [address] Care Team Providers Care Nuclear Medicine Physician Name Role Phone Onesimo Bruno MD Primary Care Provider [phone] Josh Samayoa PsyD, LP Unavailable [phone] Allergies Active Allergy Reactions Criticality Noted Date Comments Oxycodone Itching 09/20/2018 Medications Medication Sig Dispensed Refills Start Date End Date Status XARELTO 20 mg tablet Take 20 mg by mouth at bedtime. 03/15/2016 Active venlafaxine (EFFEXOR XR) 150 mg Extended-Release capsule Take 150 mg by mouth once daily with a meal. 03/30/2016 Active metoprolol succinate (TOPROL XL) 50 mg sustained-release tablet Take 50 mg by mouth once daily. 1 04/17/2016 Active NUVIGIL 250 mg tablet Take 150 mg by mouth once daily. 0 03/19/2016 Active lisinopril (PRINIVIL; ZESTRIL) 5 mg tablet Take 5 mg by mouth once daily. 03/16/2016 Active rosuvastatin (CRESTOR) 40 mg tablet Take 40 mg by mouth at bedtime. 03/02/2016 Active divalproex (DEPAKOTE ER) 500 mg [...] Take 500 mg by mouth once daily. 09/13/2019 Active L.RHAMNOSUS [id number] OIL ORAL Take 500 mg by mouth once daily. Active ezetimibe (ZETIA) 10 mg tablet Take 10 mg by mouth once daily. 11/03/2019 Active fluticasone (50 mcg per actuation) nasal solution (FLONASE) Inhale 1 [place] in the nostril(s) 2 times daily if needed. 10/18/2018 Active nitroglycerin (NITROSTAT) 0.4 mg sublingual tablet 0.4 mg at bedtime if needed. 02/19/2019 Active tamsulosin (FLOMAX) 0.4 mg capsule 0.4 mg one time if needed. 09/25/2019 Active gabapentin (NEURONTIN) 300 mg capsule Take 600 mg by mouth. 02/11/2020 Active ketoconazole 2% shampoo (NIZORAL) 2 % shampoo APPLY TO SCALP THREE TIMES A WEEK NEEDED AND THEN RINSE WELL 01/18/2020 Active fluocinonide 0.05 TOPICAL (LIDEX) 0.05 % external solution APPLY EXTERNALLY TO THE SCALP TWICE DAILY NEEDED 01/18/2020 Active CPAPIndications:IDA (obstructive sleep apnea) CPAP machine for home use at pressure 8-20cm, full face mask x1/3month with a full face cushion x1/mo 1 Device 11 03/11/2020 Active clindamycin 1% (CLEOCIN-T) 1 % lotion APPLY TOPICALLY TO THE AFFECTED AREA TWICE DAILY. MIX WITH KETOCONAZOLE CREAM 07/20/2021 Active furosemide (LASIX) 20 mg tablet Take 0.5 Tablets by mouth once daily. 07/26/2021 Active buPROPion (WELLBUTRIN SR) 100 mg Sustained-Release tablet Take 100 mg by mouth every morning. 07/04/2021 Active Active Problems Problem Noted Date [...] Encounters Date Type Department Care Team Description 05/11/2023 2:30 PM CDT Telemedicine [facility] [address] [place] [address] Josh Samayoa, PsyD, LP Individual Therapy 05/11/2023 Travel 05/02/2023 1:25 PM CDT - 05/02/2023 11:59 PM CDT Hospital Encounter [facility] [address] [place] [address] Onesimo Bruno MD NAVAS (dyspnea on exertion) 05/02/2023 Travel 04/29/2023 1:27 PM CDT - 04/29/2023 11:59 PM CDT Hospital Encounter [facility] [address] [place] [address] Onesimo Bruno MD NAVAS (dyspnea on exertion) 04/29/2023 Travel 04/27/2023 11:30 AM CDT - 04/27/2023 11:59 PM CDT Hospital Encounter [facility] [address] [place] [address] Onesimo Bruno MD NAVAS (dyspnea on exertion) 04/27/2023 Travel 04/25/2023 1:24 PM CDT - 04/25/2023 11:59 PM CDT Hospital Encounter [facility] [address] [place] [address] Onesimo Bruno MD NAVAS (dyspnea on exertion) 04/25/2023 Travel 04/22/2023 1:19 PM REVIEW CONSULTANT - 04/22/2023 11:59 PM REVIEW CONSULTANT Hospital Encounter [facility] [address] [place] [address] Onesimo Bruno MD NAVAS (dyspnea on exertion) 04/22/2023 Travel 04/20/2023 1:14 PM REVIEW CONSULTANT - 04/20/2023 11:59 PM REVIEW CONSULTANT Hospital Encounter [facility] [address] [place] [address] Onesimo Bruno MD NAVAS (dyspnea on exertion) 04/20/2023 10:30 AM REVIEW CONSULTANT Telemedicine [facility] [address] [place] [address] Josh Samayoa PsyD, LP Individual Therapy 04/20/2023 Travel 04/18/2023 1:17 PM REVIEW CONSULTANT - 04/18/2023 11:59 PM REVIEW CONSULTANT Hospital Encounter [facility] [address] [place] [address] Onesimo Bruno MD NAVAS (dyspnea on exertion) 04/18/2023 Travel 04/13/2023 1:18 PM REVIEW CONSULTANT - 04/13/2023 11:59 PM REVIEW CONSULTANT Hospital Encounter [facility] [address] [place] [address] Onesimo Bruno MD NAVAS (dyspnea on exertion) 04/13/2023 Travel 04/11/2023 1:24 PM REVIEW CONSULTANT - 04/11/2023 11:59 PM REVIEW CONSULTANT Hospital Encounter [facility] [address] [place] [address] Onesimo Bruno MD NAVAS (dyspnea on exertion) 04/11/2023 Travel 04/08/2023 1:16 PM REVIEW CONSULTANT - 04/08/2023 11:59 PM REVIEW CONSULTANT Hospital Encounter [facility] [address] [place] [address] Onesimo Bruno MD NAVAS (dyspnea on exertion) 04/08/2023 Travel 04/06/2023 9:45 AM REVIEW CONSULTANT Telemedicine [facility] [address] [place] [address] Josh Samayoa PsyD, LP Individual Therapy 04/06/2023 Telephone [facility] [address] [place] [address] Josh Samayoa PsyD, LP Appointment (Called patient to schedule 2-3 + virtual visits starting the week of 05/01 every 2 weeks.) 04/04/2023 1:23 PM REVIEW CONSULTANT - 04/04/2023 11:59 PM REVIEW CONSULTANT Hospital Encounter [facility] [address] [facility] [place] [address] Onesimo Bruno MD NAVAS (dyspnea on exertion) 04/04/2023 Travel 04/01/2023 1:28 PM REVIEW CONSULTANT - 04/01/2023 11:59 PM REVIEW CONSULTANT Hospital Encounter [facility] [address] [place] [address] Onesimo Bruno MD NAVAS (dyspnea on exertion) 04/01/2023 Travel 03/30/2023 1:17 PM REVIEW CONSULTANT - 03/30/2023 11:59 PM REVIEW CONSULTANT Hospital Encounter [facility] [address] [place] [address] Onesimo Bruno MD NAVAS (dyspnea on exertion) 03/30/2023 Travel 03/28/2023 1:15 PM REVIEW CONSULTANT - 03/28/2023 11:59 PM REVIEW CONSULTANT Hospital Encounter [facility] [address] [place] [address] Onesimo Bruno MD NAVAS (dyspnea on exertion) 03/28/2023 Travel 03/25/2023 1:11 PM REVIEW CONSULTANT - 03/25/2023 11:59 PM REVIEW CONSULTANT Hospital Encounter [facility] [address] [place] [address] Onesimo Bruno MD DOE (dyspnea on exertion) 03/25/2023 Travel 03/23/2023 1:11 PM REVIEW CONSULTANT - 03/23/2023 11:59 PM REVIEW CONSULTANT Hospital Encounter [facility] [address] [place] [address] Onesimo Bruno MD DOE (dyspnea on exertion) 03/23/2023 10:30 AM REVIEW CONSULTANT Phone Office Visit [facility] [address] [facility] [address] [place] [address] Josh Samayoa PsyD, LP Individual Therapy 03/23/2023 Travel 03/21/2023 1:30 PM REVIEW CONSULTANT - 03/21/2023 11:59 PM REVIEW CONSULTANT Hospital Encounter [facility] [address] [place] [address] Onesimo Bruno MD DOE (dyspnea on exertion) 03/21/2023 Travel 03/09/2023 9:00 AM REVIEW CONSULTANT Telemedicine [facility] [address] [facility] [address] [place] [address] Josh Samayoa PsyD, LP Individual Therapy 02/23/2023 1:45 PM REVIEW CONSULTANT Telemedicine [facility] [address] [facility] [address] [place] [address] Josh Samayoa PsyD, LP [facility] Travel from Last 3 Months Social History Tobacco [...] Comments Blood Pressure 140/80 01/25/2023 4:00 PM REVIEW CONSULTANT Pulse 98 01/25/2023 4:00 PM REVIEW CONSULTANT Temperature 35.7 ??C (96.2 ??F) 08/24/2021 9:45 AM CD T Respiratory Rate 20 01/25/2023 4:00 PM REVIEW CONSULTANT Oxygen Saturation 97% 01/25/2023 4:00 PM REVIEW CONSULTANT Inhaled Oxygen Concentration - - Weight 135.7 kg (299 lb 1.6 oz) 01/25/2023 4:00 PM REVIEW CONSULTANT Height 182.9 cm (6') 01/25/2023 4:00 PM REVIEW CONSULTANT Body Mass Index 40.57 01/25/2023 4:00 PM REVIEW CONSULTANT Plan of Treatment Upcoming Encounters Date Type Department Care Team (Late st Contact Info) Description 05/23/2023 1:30 PM CDT Appointment [address] [address] 05/24/2023 10:15 AM CDT [facility] [address] [place] [address] Josh Samayoa, Germain, LP [address] [place] [address] 05/25/2023 1:30 PM CDT Appointment [address] [address] 05/27/2023 1:30 PM CDT Appointment [address] [address] 05/30/2023 1:30 PM CDT Appointment [address] [address] 06/01/2023 1:30 PM CDT Appointment [address] [address] 06/03/2023 1:30 PM CDT Appointment [address] [address] 06/06/2023 1:30 PM CDT Appointment [address] [address] 06/07/2023 10:15 AM CDT Telemedicine [facility] [address] [place] [address] Josh Samayoa PsyD, LP [address] [place] [address] 06/08/2023 1:30 PM CDT Appointment [address] [place] [address] 06/10/2023 1:30 PM CDT Appointment [facility] [address] [facility] [address] [facility] [place] [address] 06/13/2023 1:30 PM CDT Appointment [facility] [address] [facility] [place] [address] 06/15/2023 1:30 PM CDT Appointment [facility] [address] [facility] [place] [address] Health Maintenance Due Date Last Done Comments [...] Additional history exists Influenza for age 65+ 10/16/2023 Depression screening for age 12+ 01/29/2024 01/28/2023, 01/25/2023, 04/16/2022, Additional history exists COVID-19 vaccine series Completed 12/09/19, 06/18/2021, 01/23/2021, Additional history exists Procedures Procedure Name Priority Date/Time Associated Diagnosis Comments SCAN-CARDIAC REHABILITATION 05/02/2023 1:29 PM CDT SCAN-CARDIAC REHABILITATION 04/29/2023 1:35 PM CDT SCAN-CARDIAC REHABILITATION 04/27/2023 1:27 PM CDT SCAN-CARDIAC REHABILITATION 04/25/2023 1:29 PM CDT SCAN-CARDIAC REHABILITATION 04/22/2023 1:30 PM REVIEW CONSULTANT SCAN-CARDIAC REHABILITATION 04/20/2023 1:22 PM REVIEW CONSULTANT SCAN-CARDIAC REHABILITATION 04/18/2023 1:24 PM REVIEW CONSULTANT SCAN-CARDIAC REHABILITATION 04/13/2023 1:26 PM REVIEW CONSULTANT SCAN-CARDIAC REHABILITATION 04/13/2023 1:26 PM REVIEW CONSULTANT SCAN-CARDIAC REHABILITATION 04/11/2023 1:30 PM REVIEW CONSULTANT SCAN-CARDIAC REHABILITATION 04/08/2023 1:26 PM REVIEW CONSULTANT SCAN-CARDIAC REHABILITATION 04/04/2023 1:30 PM REVIEW CONSULTANT SCAN-CARDIAC REHABILITATION 04/01/2023 1:34 PM REVIEW CONSULTANT SCAN-CARDIAC REHABILITATION 03/30/2023 1:26 PM REVIEW CONSULTANT SCAN-CARDIAC REHABILITATION 03/28/2023 1:26 PM REVIEW CONSULTANT SCAN-CARDIAC REHABILITATION 03/25/2023 1:26 PM REVIEW CONSULTANT SCAN-CARDIAC REHABILITATION 03/23/2023 1:17 PM REVIEW CONSULTANT SCAN-CARDIAC REHABILITATION 03/21/2023 1:33 PM REVIEW CONSULTANT from Last 3 Months Results * SCAN-CARDIAC REHABILITATION (05/02/2023 1:29 PM CDT) Only the most recent of18 resultswithin the time period is included. Scanner OTHER from Last 3 Months Care Teams Nuclear Medicine Physician Relationship Specialty Start Date End Date Onesimo Bruno MD [address] [place] [address] PCP - General Internal Medicine 11/11/14 Josh Samayoa, Germain, LP [address] [facility] [address] [place] [address] Psychology 06/15/22
--- OUTSIDE RECORDS SUMMARY | 2023-05-21 07:11 | XMS_ITS | Encounter Summary ---
Author Name Unknown Organization [facility] Address [address] [place] [address] Care Team Providers Care Material Handling Supervisor Name Role Phone Onesimo Bruno MD Primary Care Provider [phone] Bhavna Mac PharmD Unavailable [phone] Isaac Bro RN Unavailable [phone] Ilda Tapia CHW Unavailable [phone] Onesimo Bruno MD Unavailable [phone] Manuel Calderon MD, Jon Unavailable [phone] Nataliia Gomez MD Unavailable Luly Grant MD Unavailable +[phone] Rafita Ayers MD Unavailable [phone] Flo Henry MD Unavailable [phone] Susan Robert CHW Unavailable Unavailable Jana Vick CHW Unavailable UnavailTor Brown DPM Unavailable +[phone] Lorri Larsen MD Unavailable [phone] Lorri Larsen MD Unavailable [phone] Rafita Ayers MD Unavailable +[phone] Kaelyn New Unavailable +[phone] Marino Hayes MD Unavailable + [phone] Marino Hayes MD Unavailable Encounter Details Date [...] on filedocumented in this encounter Care Teams Material Handling Supervisor Relationship Specialty Start Date End Date Onesimo Bruno MD PCP - General 08/11/06 Bhavna Mac, Elio [address] [place] [address] Pharmacist Pharmacist 07/11/18 Isaac Bro, RN Lead Mud Analysis Well Logging Captain Primary Care - CC 09/01/18 Ilda Tapia CHW Community Health Worker Primary Care - CC 09/01/1804/22 Onesimo Bruno MD [address] [place] [address] Assigned PCP 07/30/20 Florentino Jackson MD [facility] [address] [place] [address] [address] [place] [address] Assigned Surgical Provider 08/29/20 09/27/20 Nataliia Gomez MD [address] [facility], [address] [place] [address] Assigned Heart and Vascular Provider 08/29/20 10/08/22 Luly Grant MD [address] [facility] [address] [place], [place] [id number] Assigned Allergy Provider 08/29/20 04/16/22 Rafita Ayers MD [address] [place] [address] [id number] Assigned Pulmonology Provider 10/12/20 Flo Henry MD [address] [facility] [address] [place] [address] [id number] Assigned Behavioral Health Provider 09/21/20 Susan Robert W Community Health Worker Primary Care - CC 04/23/2106/15/21 Jana Vick CHW Community Health Worker Primary Care - CC 06/08/21 Tor Joseph DPM [address] [facility] [address] [place] [address] Assigned Musculoskeletal Provider 07/05/21 03/19/22 Lorri Larsen MD [address] [place] [address] Otolaryngology 07/21/21 Lorri Larsen MD [address] [place] [address] Assigned Surgical Provider 10/10/21 04/28/23 Rafita Ayers MD [address] [place] [address] Critical Care 11/30/21 Kaelyn New AuD [address] [place] [address] Admitting Counselor Audiology 12/09/21 Marino Hayes MD [address] [place] [address] 895645 Cardiovascular Disease 09/28/22 Marino Hayes MD [address] [place] [address] [id number] Assigned Heart and Vascular Provider 10/09/22 documented as of this encounter
--- OUTSIDE RECORDS SUMMARY | 2023-05-21 07:11 | XMS_ITS | Encounter Summary ---
Author Name Unknown Organization [facility] Address [address] [place] [address] Care Team Providers Care Trademark Paralegal Name Role Phone Onesimo Bruno MD Primary Care Provider [phone] Bhavna Mac PharmD Unavailable [phone] Isaac Bro RN Unavailable [phone] Ilda Tapia CHW Unavailable [phone] Onesimo Bruno MD Unavailable [phone] Manuel Calderon MD, Jon Unavailable [phone] Nataliia Gomez MD Unavailable Luly Grant MD Unavailable +[phone] Rafita Ayers MD Unavailable +[phone] Flo Henry MD Unavailable +[phone] Susan Robert CHW Unavailable Unavailable Jana Vick CHW Unavailable UnavailTor Brown DPM Unavailable +[phone] Lorri Larsen MD Unavailable [phone] Lorri Larsen MD Unavailable [phone] Rafita Ayers MD Unavailable +[phone] Kaelyn New Unavailable +[phone] Marino Hayes MD Unavailable + [phone] Marino Hayes MD Unavailable Encounter Details Date [...] documented as of this encounter Care Teams Trademark Paralegal Relationship Specialty Start Date End Date Onesimo Bruno MD PCP - General 08/11/06 Bhavna Mac, PharmD [address] [place] [address] Pharmacist Pharmacist 07/11/18 Isaac Bro, RN Lead Tile Picker Primary Care - CC 09/01/18 Ilda Tapia CHW Community Health Worker Primary Care - CC 09/01/1804/22 Onesimo Bruno MD [address] [place] [address] Assigned PCP 07/30/20 Florentino Jackson MD [facility] [address] [place] [address] [address] [place] [address] Assigned Surgical Provider 08/29/20 09/27/20 Nataliia Gomez MD [address] [place] [address], [address] [place] [address] Assigned Heart and Vascular Provider 08/29/20 10/08/22 Luly Grant MD [address] [facility] [address] [place] [address] Assigned Allergy Provider 08/29/20 04/16/22 Rafita Ayers MD [address] [place] [address] Assigned Pulmonology Provider 10/12/20 Flo Henry MD [facility] [address] [address] Assigned Behavioral Health Provider 09/21/20 Susan Robert, W Community Health Worker Primary Care - CC 04/23/2106/15/21 Jana Vick CHW Community Health Worker Primary Care - CC 06/08/21 Tor Joseph DPM [address] [facility] [address] [place] [address] Assigned Musculoskeletal Provider 07/05/21 03/19/22 Lorri Larsen MD [address] [place] [address] Otolaryngology 07/21/21 Lorri Larsen MD [address] [place] [address] Assigned Surgical Provider 10/10/21 04/28/23 Rafita Ayers MD [address] [place] [address] Critical Care 11/30/21 Kaelyn New AuD [address] [place] [address] Copyholder Audiology 12/09/21 Marino Hayes MD [address] [place] [address] Cardiovascular Disease 09/28/22 Marino Hayes MD [address] [place] [address] [id number] Assigned Heart and Vascular Provider 10/09/22 documented as of this encounter
== END 2023-05-16 02:20 | disposition home or self-care (01) ==
LOC: AMB 05-21 07:02
PROVIDERS: Visit Provider Family Medicine
DX: R55 Syncope and collapse (principal); R11.2 Nausea with vomiting, unspecified; R19.7 Diarrhea, unspecified
CPT/HCPCS: A0425; A0427

== ENCOUNTER 2023-05-16 03:04 | Emergency (ER) | payer MEDICARE, BC, SELFPAY ==
[2023-05-16 03:15] VITALS: BP 148/88; PULSE 93; RESP 20; TEMP 36.1; O2SAT 95; BMI 41.0
--- NOTE | 2023-05-16 03:52 | ED_ITS ---
HPI - General Adult General Chief complaint: Nausea/Vomiting Stated complaint: nausea/vomiting Time Seen by Provider: 05/16/23 03:11 Source: patient, family and EMS Mode of arrival: EMS History of Present Illness HPI narrative: 9-year-old male presents the emergency department feeling mildly unwell for the past 48 hours but with a 4 hour history of nausea vomiting and diarrhea, worsening. 4 episodes of watery diarrhea since onset this evening. No blood in his stools, no bloody emesis. Has not tried taking any Imodium or other medications to help with symptoms. No prior history of abdominal surgeries. No abdominal pain. Zofran was given by EMS. Has a history of extensive coronary artery disease and has a follow-up with his house painter helper in 2 days to investigate an episode of chest pain that he had 10 days ago. He reports that he is prone to vasovagal episodes but has not had any syncope tonight. No recent antibiotic use. Was exposed to gastroenteritis by a family member over the weekend but had started to feel ill even prior to that meeting. He is accompanied by his long-term partner who is not symptomatic at this time. No injury or trauma. He is anticoagulated for prior pulmonary embolism. He does have a history of RSV this February and 2 prior hospitalizations for asthma exacerbations. ROS reported to the nursing team notable for the GI symptoms as described above only, as well as the episode of chest pain 10 days ago, not currently symptomatic. Otherwise he denied times 12 systems. Past medical history is fairly significant. Prior traumatic brain injury, extensive coronary artery disease, prior pulmonary embolism. The medications he lists are accurate. Nonsmoker, denies alcohol intake. Related Data Home Medications Medication Instructions Recorded Confirmed ezetimibe 10 mg tablet 10 mg PO DAILY 05/31/22 05/16/23 furosemide 20 mg tablet 20 mg PO DAILY 05/31/22 05/16/23 lisinopril 5 mg tablet 5 mg PO DAILY 05/31/22 05/16/23 metoprolol succinate 50 mg 50 mg PO DAILY 05/31/22 05/16/23 tablet,extended release 24 hr nitroglycerin 0.4 mg sublingual 0.4 mg sublingual ONCE 05/31/22 04/05/23 tablet rosuvastatin 40 mg tablet 40 mg PO DAILY 05/31/22 05/16/23 tamsulosin 0.4 mg capsule 0.4 mg PO Q24H 05/31/22 04/05/23 armodafinil 250 mg tablet 250 mg PO DAILY 09/17/22 05/16/23 bupropion HCl 100 mg tablet,12 hr 100 mg PO QAM 09/17/22 05/16/23 sustained-release rivaroxaban 20 mg tablet (Xarelto) 20 mg PO DAILY 09/17/22 05/16/23 venlafaxine 150 mg 150 mg PO DAILY 09/17/22 05/16/23 capsule,extended release 24 hr venlafaxine 75 mg capsule,extended 75 mg PO DAILY 09/17/22 04/05/23 release 24 hr albuterol sulfate 90 mcg/actuation 2 puff inhalation Q6H PRN 02/27/23 05/16/23 aerosol inhaler doxycycline hyclate 100 mg tablet 100 mg PO BID 02/27/23 05/16/23 trilage Inhaled .am 03/01/23 04/05/23 Previous Rx's Medication Instructions Recorded acetaminophen 300 mg-codeine 30 mg 1 tab PO Q6H PRN pain #20 tabs 03/01/23 tablet Allergies Allergy/AdvReac Type Severity Reaction Status Date / Time oxycodone Allergy Rash Verified 05/16/23 03:14 [facility] Medical History Fracture of phalanx of toe of right foot ?S92.911A - Unspecified fracture of right toe(s), initial encounter for closed fracture (ICD-10) Concussion ?S06.0XAA - Concussion with loss of consciousness status unknown, initial encounter (ICD-10) Cardiac arrhythmia ?I49.9 - Cardiac arrhythmia, unspecified (ICD-10) Type 2 diabetes mellitus ?E11.9 - Type 2 diabetes mellitus without complications (ICD-10) CAD (coronary artery disease) ?I25.10 - Atherosclerotic heart disease of [place] coronary artery without angina pectoris (ICD-10) COPD (chronic obstructive pulmonary disease) ?J44.9 - Chronic obstructive pulmonary disease, unspecified (ICD-10) Asthma ?J45.909 - Unspecified asthma, uncomplicated (ICD-10) Surgical History History of coronary artery stent placement ?Z95.5 - Presence of coronary angioplasty implant and graft (ICD-10) Social History Smoking Status: Never smoker Do you use any of these nicotine containing products: None Second hand tobacco smoke exposure: No How often do you have a drink containing alcohol: never How often do you have six or more drinks on one occasion: Never AUDIT-C Alcohol total score: 0 Non-prescribed substance use: denies use service: No Exam Const: Vital Signs, click to edit/add: Vital Signs - 24 hr 05/16/23 03:15 Temperature 97 F L Pulse Rate [Pulse Oximeter] 93 Respiratory Rate 20 Blood Pressure [Le ft Forearm] 148/88 H Pulse Oximetry 95 Oxygen Delivery Me thod Room Air Documenting provider has reviewed patient's vital signs: yes Common normals: no apparent distress and alert Other: Friendly, cooperative and talkative. Good historian. HENMT: Common normals: normocephalic Head and scalp: normocephalic Mouth: oral and palatal mucosa normal Eye: Common normals: conjunctivae normal Conjunctiva: conjunctiva(e) normal Resp: Common normals: normal respiratory effort, no use of accessory muscles and clear to auscultation bilaterally Effort & inspection: able to speak in complete sentences Auscultation: clear to auscultation bilaterally Cardio: Common normals: regular rate, regular rhythm, S1 normal heart sound, S2 normal heart sound and no murmurs Rate: regular rate Rhythm: regular rhythm Heart sounds: S1 normal and S2 normal GI: Common normals: Normal to inspection, nondistended, normoactive bowel sounds present, soft to palpation, no hepatosplenomegaly and no masses Palpa tion: soft and no hepatosplenomegaly Other: Mild epigastric tenderness but no rebound tenderness or guarding. Back & Pelvis: Common normals: thoracic and lumbar spine normal to inspection Extremity: Common normals: normal capillary refill and no pedal edema Neuro: Sensorium/orientation: alert Speech: speech normal Other: Symmetric strength, can pull self up by bed rails with no difficulty. Psych: Attitude: engaged Activity/motor behavior: appropriate eye contact Insight: insight good Judgement: judgment good Skin: Common normals: no rashes or lesions noted General skin exam: no rashes or lesions noted Course Course ED Course: Nausea vomiting and diarrhea without hypotension or tachycardia. Is on a beta- mat that could potentially mask tachycardia. No obvious severe weakness or neurological changes. History is not suggestive of non infectious source. Suspect viral gastroenteritis. We are seeing a few cases of norovirus and still some influenza B that does seem to have a predominantly GI profile. Has already been given 4 mg of Zofran by EMS team. Will give 4 mg of Imodium and 1 L of LR. Basic labs to investigate for alternative sources. Await findings and treatment response. Reevaluation(s) Time of Reevaluation #1: 05:00 Reevaluation #1: Nausea is improving and patient has had no further watery stools. He is feeling somewhat better. Reassuring labs reviewed with patient. Will discharge home with conservative management of gastroenteritis with Zofran, prescription provided. Counseled on [id number]-dsetwss Imodium and alarm symptoms that would warrant ED presentation. He verbalized understanding and agreement. Will finish is fluids prior to discharge. Vital Signs Vital signs: Initial Vital Signs Temperature 97 F L 05/16/23 03:15 Temperature Source Temporal Artery Scan 05/16/23 03:15 Pulse Rate 93 05/16/23 03:15 Pulse Rhythm Regular 05/16/23 03:15 Pulse Strength 3+ Normal 05/16/23 03:15 Respiratory Rate 20 05/16/23 03:15 Blood Pressure 148/88 H 05/16/23 03:15 Blood Pressure Mean 108 H 05/16/23 03:15 Pulse Oximetry 95 05/16/23 03:15 Oxygen Delivery Method Room Air 05/16/23 03:15 Vital Signs Temperature 97 F L 05/16/23 03:15 Pulse Rate 93 05/16/23 03:15 Respiratory Rate 20 05/16/23 03:15 Blood Pressure 148/88 H 05/16/23 03:15 Pulse Oximetry 95 05/16/23 03:15 Oxygen Delivery Method Room Air 05/16/23 03:15 Temperature 97 F L 05/16/23 03:15 Pulse Rate 93 05/16/23 03:15 Respiratory Rate 20 05/16/23 03:15 Blood Pressure 148/88 H 05/16/23 03:15 Pulse Oximetry 95 05/16/23 03:15 Oxygen Delivery Method Room Air 05/16/23 03:15 Medications Administered Medications: Discontinued Medications Generic Name Dose Route Start Last Admin Trade Name Dorie PRN Reason Stop Dose Admin Lactated Ringer's 1,000 mls @ 1,000 mls/hr 05/16/23 03:37 05/16/23 04:04 Lactated Ringers 1000 Ml IV 05/16/23 04:36 1,000 mls/hr .Q1H ONE Administration Loperamide HCl 4 mg 05/16/23 03:37 05/16/23 04:05 Loperamide Hcl 2 Mg Capsule PO 05/16/23 03:38 4 mg ONCE ONE Administration Medical Decision Making Lab Data Labs: Lab Results 05/16/23 Range/Units 03:55 WBC 7.36 (4.50-11.00) K/uL RBC 4.99 (4.30-5.90) m/uL Hgb 15.6 (13.5-17.5) gm/dL Hct 47.8 (37.0-53.0) % MCV 96 (80-100) fL MCH 31 (26-34) pg MCHC 33 (32-36) gm/dL RDW Coeff of Cosmo 13.8 (11.5-15.5) % Plt Count 170 (140-440) K/uL Neut % (Auto) 89.7 H (42.0-72.0) % Lymph % (Auto) 6.0 L (20-44) % [place] % (Auto) 3.4 (0.0-11.0) % Eos % (Auto) 0.7 (0.0-7.0) % Baso % (Auto) 0.1 (0.0-3.0) % Neut # (Auto) 6.60 (1.7-7.0) K/uL Lymph # (Auto) 0.40 L (0.90-2.90) K/uL [place] # (Auto) 0.30 (0.00-0.90) K/UL Eos # (Auto) 0.05 (0.00-0.50) K/uL Baso # (Auto) 0.01 (0.00-0.30) K/uL Abs Immat Gran (auto) 0.01 (0.00-0.30) K/uL Imm/Tot Granulo (auto) 0.1 % Sodium 137 (135-149) mmol/L Potassium 4.5 (3.6-5.1) mmol/L Chloride 107 (96-114) mmol/L Carbon Dioxide 23 (20-32) mmol/L Anion Gap 7 (7-15) mEq/L BUN 23 (7-30) mg/dL Creatinine 1.1 (0.5-1.5) mg/dL Estimated Creat Clear 68.59 Estimated GFR 72 ml/min Glucose 126 H (60-115) mg/dL Lactate 2.0 H (0.5-1.9) mmol/L Calcium 9.0 (8.4-10.6) mg/dL Magnesium 1.7 (1.5-2.6) mg/dL Total Bilirubin 0.7 (0.1-1.5) mg/dL AST 24 (12-35) U/L ALT 34 (4-50) U/L Alkaline Phosphatase 60 (40-150) U/L C-Reactive Protein < 0.5 L (0.5-1.0) mg/dL Total Protein 7.0 (6.0-8.3) g/dL Albumin 4.2 (3.3-5.0) g/dL Lipase 71 (23-300) U/L Discharge Plan Discharge Clinical Impression: Gastroenteritis Patient Disposition: Home w/ Parent or Adult Condition: Improved Instructions: Gastroenteritis (DC) Additional Instructions: I am glad that your starting to feel better. I have given her prescription for more of the anti nausea medicine, Zofran, also known as ondansetron. I would automatically take this every 8 hours for the next 24 hours to prevent further vomiting. After that, you may use it as needed. Your given some Imodium to help reduce the diarrhea. You may continue using 2 mg up to every 2 hours, max of 12 per day. Drink lots of fluids, slowly advanced your solid food diet once you are feeling better. Come back to the emergency department if you have any severe worsening of symptoms, severe weakness, heavily bloody stools and or other progression of worrisome symptoms. Plan to keep your appointment with your house painter helper as scheduled. Activity Level: Activity as Tolerated Discharge Diet: Regular Prescriptions: No Action rosuvastatin 40 mg tablet 40 mg PO DAILY metoprolol succinate 50 mg tablet extended release 24 hr 50 mg PO DAILY Patient Comments: TAKE 1 TABLET BY MOUTH DAILY lisinopril 5 mg tablet 5 mg PO DAILY furosemide 20 mg tablet 20 mg PO DAILY tamsulosin 0.4 mg capsule 0.4 mg PO Q24H nitroglycerin 0.4 mg tablet, sublingual 0.4 mg sublingual ONCE ezetimibe 10 mg tablet 10 mg PO DAILY venlafaxine 75 mg capsule,extended release 24hr 75 mg PO DAILY venlafaxine 150 mg capsule,extended release 24hr 150 mg PO DAILY bupropion HCl 100 mg tablet sustained-release 12 hr 100 mg PO QAM Xarelto 20 mg tablet 20 mg PO DAILY armodafinil 250 mg tablet 250 mg PO DAILY albuterol sulfate 90 mcg/actuation HFA aerosol inhaler 2 puff INHALATION Q6H PRN doxycycline hyclate 100 mg tablet 100 mg PO BID trilage Inhaled .am Patient Comments: inhaler daily in am acetaminophen-codeine 300-30 mg tablet 1 tab PO Q6H PRN (Reason: pain) Qty: 20 0RF Follow Up/Referrals: Provider,Not a Local [Primary Care Provider] - Stand Alone Forms: [employer] Info Instructions
[2023-05-16] MEDS: LACTATED RINGERS 1000 ML 1,000 ML IV (04:04)
[2023-05-16] MEDS: LOPERAMIDE HCL 2 MG CAPSULE 4 MG PO (04:05)
[2023-05-16 04:19] LABS: Basophils Absolute Auto 0.01 K/uL (0.00-0.30); Basophils Percent Auto 0.1 % (0.0-3.0); Eosinophils Absolute Auto 0.05 K/uL (0.00-0.50); Eosinophils Percent Auto 0.7 % (0.0-7.0); Hematocrit 47.8 % (37.0-53.0); Hemoglobin* 15.6 gm/dL (13.5-17.5); Immature Granulocytes Abs Auto 0.01 K/uL (0.00-0.30); Immature Granulocytes Pct Auto 0.1 %; Mean Corpuscular HGB Conc 33 gm/dL (32-36); Mean Corpuscular Hemoglobin 31 pg (26-34); Mean Corpuscular Volume 96 fL (80-100); Monocytes Percent Auto 3.4 % (0.0-11.0); Neutrophils Percent Auto 89.7 % (42.0-72.0); Platelet Count* 170 K/uL (140-440); RDW Coefficient of Variation % 13.8 % (11.5-15.5); Red Blood Count 4.99 m/uL (4.30-5.90); White Blood Count* 7.36 K/uL (4.50-11.00)
[2023-05-16 04:33] LABS: Albumin* 4.2 g/dL (3.3-5.0); Chloride* 107 mmol/L (96-114); Sodium* 137 mmol/L (135-149)
[2023-05-16 04:34] LABS: Potassium* 4.5 mmol/L (3.6-5.1)
[2023-05-16 04:36] LABS: Alkaline Phosphatase* 60 U/L (40-150); Anion Gap 7 mEq/L (7-15); Aspartate Amino Transferase* 24 U/L (12-35); Bilirubin Total* 0.7 mg/dL (0.1-1.5); Blood Urea Nitrogen* 23 mg/dL (7-30); Carbon Dioxide* 23 mmol/L (20-32); Creatinine* 1.1 mg/dL (0.5-1.5); Est. Creatinine Clearance* 68.59; Estimated Glomerular Filt Rate 72 ml/min; Slide Review Reflex No
[2023-05-16 04:37] LABS: Alanine Aminotransferase* 34 U/L (4-50); Glucose* 126 mg/dL (60-115); Lipase* 71 U/L (23-300); Magnesium* 1.7 mg/dL (1.5-2.6)
[2023-05-16 04:41] LABS: C Reactive Protein* < 0.5 mg/dL (0.5-1.0)
[2023-05-16 05:22] LABS: PCR FLU A Negative PCR FLU A (Negative); PCR FLU B Negative PCR FLU B (Negative); PCR RSV Negative PCR RSV (Negative); SARS PCR* Negative SARS-CoV-2 (Negative)
[2023-05-16 05:44] VITALS: BP 139/80; PULSE 98
--- NOTE | 2023-05-17 09:45 | ED.NURSE ---
patient called back this am and reported to patient the results are negative for Influenza, COVID, and RSV. patient expressed really likes this ED and thinks everybody does a great job here.
== END 2023-05-16 06:01 | disposition home or self-care (01) ==
PROVIDERS: Emergency Provider Family Medicine
DX: K52.9 Noninfective gastroenteritis and colitis, unspecified (principal)
CPT/HCPCS: 36415; 80053; 83605; 83690; 83735; 85025; 86140; 87631; 99283; 99284; A9270; J7120

== ENCOUNTER 2023-09-06 13:04 | Emergency (ER) | payer MEDICARE, BC, SELFPAY ==
[2023-09-06 13:07] VITALS: BP 137/73; PULSE 76; RESP 18; TEMP 35.7; O2SAT 95; BMI 40.7
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
--- NOTE | 2023-09-06 13:29 | CRLHL7_ITS ---
For Patients: As a result of the Cures Act, medical imaging exams and procedure reports are released immediately into your electronic medical record. You may view this report before your referring provider. If you have questions, please contact your health care provider. INDICATION: Anticoagulated, fall, head injury. COMPARISON: None. TECHNIQUE: CT of the brain / head without intravenous contrast. Multiplanar axial, coronal, and sagittal reformats were reconstructed. FINDINGS: No intracranial hemorrhage. Mild age-related parenchymal volume loss. No acute or subacute cortically based infarct. No mass or mass effect. Normal ventricles. No skull fractures. No worrisome focal bone lesion. Left frontal soft tissue contusion. IMPRESSION: Left frontal scalp soft tissue contusion. No intracranial hemorrhage. No skull fracture. Please note that all CT scans at this facility use dose modulation, iterative reconstruction, and/or weight-based dosing when appropriate to reduce radiation dose to as low as reasonably achievable. Dictated by Destinee Downs MD @ 09/06/2023 1:58:46 PM (Electronically Signed)
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
--- OUTSIDE RECORDS SUMMARY | 2023-09-06 13:49 | XMS_ITS | Encounter Summary ---
Author Organization [facility] Address [address] [place] [address] Care Team Providers Care Fur Sewer Name Role Phone Onesimo Bruno MD Primary Care Provider Bhavna Mac PharmD Unavailable [phone] Isaac Bro RN Unavailable [phone] Onesimo Bruno MD Unavailable [phone] Flo Henry MD Unavailable Jana Vick Unavailable Unavailabl e Lorri Larsen MD Unavailable [phone] Rafita Ayers MD Unavailable [phone] Kaelyn New AuD Unavailable [phone] Marino Hayes MD Unavailable Nataliia Gomez MD Unavailable Encounter Details Date Type Department Care Team (Late st Contact Info) Description 06/23/2023 Telephone [facility] Neurology [facility] [address] [place] [address] Flo Henry MD [address] [address] Social History Tobacco Use Types Packs/Day Years Used Date Smoking Tobacco: Never Smokeless Tobacco: Never Alcohol Use Standard Drinks/Week Comments No 0 (1 standard drink = 0.6 oz pur e alcohol) PHQ-2 Answer Date Recorded PHQ-2 Score 2 06/23/2023 Adolescent Education Answer Date Record ed Getting [...] Answer Date Recorded Do you have housing? (Vasyl g is defined as stable permanent housing and does not include staying ouside in a car, in a tent, in an abandoned building, in an overnight nursing home, or couch-surfing.) Yes 02/15/2023 Are you worried [...] Description 09/26/2023 11:40 AM CDT Office Visit [facility] [address] [place] [address] Onesimo Bruno MD [address] [place] [address] 11/24/2023 1:20 PM CDT Virtual Visit [facility] Neu[facility] [address] [place] [phone] Flo Henry MD [facility] [address] [phone] documented as of this encounter Goals Goal Patient Goal Type Associated Problems Recent Progress Patient-Stated? Author I would like to get into more healthy eating program to assist me with weight loss. Care Plan HP GENERAL PROBLEM 40%( 1:55 PM CDT) No Isaac Bro, RN [...] continue to work with my Weight Watcher's field hockey coach and start attending their Webinars. 4. I will report progress towards this goal at outreach telephone calls from the [facility] team Discussed 08/12/23 documented as of this encounter Visit Diagnoses Not on filedocumented in this encounter Additional Health Concerns Active Problems Noted Date Diagnosed Date HP GENERAL PROBLEM 11/13/2021 Assessment Noted Time PHQ-9 Depression Total Score: 7 12/09/19 23 11:14 AM CDT documented as of this encounter Care Teams Fur Sewer Relationship Specialty Start Date End Date Onesimo Bruno MD PCP - General 08/11/06 Bhavna Mac, Elio [address] [place] [address] Pharmacist Pharmacist 07/11/18 Isaac Bro, RN Lead Furnace Process Plant Operator Primary Care - CC 09/01/18 Onesimo Bruno MD [address] [place] [address] Assigned PCP 07/30/20 Flo Henry MD [address] [address] Assigned Behavioral Health Provider 09/21/20 Jana Vick, W Community Health Worker Primary Care - CC 06/08/21 Lorri Larsen MD [address] [place] [address] Otolaryngology 07/21/21 Rafita Ayers MD [address] [place] [address] Critical Care 11/30/21 Kaelyn New, [place] [address] [place] [address] Machine Zipper Trimmer Audiology 12/09/21 Marino Hayes MD [address] [place] [address] Cardiovascular Disease 09/28/22 Nataliia Gomez MD [address] [place] [address], [address] [place] [address] Assigned Heart and Vascular Provider 06/07/23 documented as of this encounter
--- OUTSIDE RECORDS SUMMARY | 2023-09-06 13:49 | XMS_ITS | Encounter Summary ---
Author Organization [place] Address [address] [place] [address] Care Team Providers Care Exhibit Specialist Name Role Phone Onesimo Bruno MD Primary Care Provider Bhavna Mca PharmD Unavailable Isaac Bro RN Unavailable [phone] Onesimo Bruno MD Unavailable [phone] Flo Henry MD Unavailable Jana Vick CHW Unavailable Unavailabl e Lorri Larsen MD Unavailable Rafita Ayers MD Unavailable [phone] Kaelyn New Unavailable [phone] Marino Hayes MD Unavailable Nataliia Gomez MD Unavailable Reason for Visit * Reason Onset Date Comments Refill Request 08/12/2023 buPROPion (WELLB UTRIN SR) 100 MG 12 hr tablet Encounter Details Date Type Department Care Team (Late st Contact Info) Description 08/12/2023 Refill [facility] [address] [phone] Flo Henry MD [address] [place] [address] [phone] Refill Request (buPROPion (WELLBUTRIN SR) 100 MG 12 hr tablet) Social History Tobacco Use Types Packs/Day Years [...] in an abandoned building, in an overnight halfway, or couch-surfing.) Yes 02/15/2023 Are you worried [...] Notes * Telephone Encounter - Malcolm Lima MA - 08/12/2023 12:47 PM CDT Refill request for the following medication (s) listed below. Pending Prescriptions: Disp Refills buPROPion (WELLBUTRIN SR) 100 MG 12 hr ta*30 tab*0 Sig: Take 1 tablet (100 mg) by mouth daily Last office visit provider: 06/23/2023 Next appointment scheduled: 11/24/23 Medication T'd for review and signature * Telephone Encounter - Brianna Abdalla - 08/12/2023 12:23 PM CDT [facility] Call Center Phone Message May a detailed message be left on voicemail: yes Reason for Call: Medication Refill Request Has the patient contacted the pharmacy for the refill? Yes Name of medication being requested: buPROPion (WELLBUTRIN SR) 100 MG 12 hr tablet Provider who prescribed the medication: Flo Henry Pharmacy: [facility] - [address] Date medication is needed: Before 08/26/23 Action Taken: Other: Neurology Travel Screening: Not Applicable documented in this encounter Plan of Treatment Upcoming Encounters Date Type Department Care Team (Late st Contact Info) Description 09/26/2023 11:40 AM CDT Office Visit [facility] [address] [place] [phone] Onesimo Bruno MD [facility] [place] [address] 11/24/2023 1:20 PM CDT Virtual Visit [facility] Neurology [address] [phone] Flo Henry MD [address] [place] [address] documented as of this encounter Goals Goal [...] the [facility] team Discussed 08/12/23 documented as of this encounter Visit Diagnoses Diagnosis Neurocognitive disorder Unspecified persistent mental disorders due to conditions classified elsewhere documented in this encounter Additional Health Concerns Active Problems Noted Date Diagnosed Date HP GENERAL PROBLEM 11/13/2021 Assessment Noted Time PHQ-9 Depression Total Score: 7 12/09/19 23 11:14 AM CDT documented as of this encounter Care Teams Exhibit Specialist Relationship Specialty Start Date End Date Onesimo Bruno MD PCP - General 08/11/06 Bhavna Mac PharmD [address] [place] [address] Pharmacist Pharmacist 07/11/18 Isaac Bro, RN Lead Garde Manager Primary Care - CC 09/01/18 Onesimo Bruno MD [address] [place] [address] Assigned PCP 07/30/20 Flo Henry MD [address] [place] [address], [place] [address] Assigned Behavioral Health Provider 09/21/20 Jana Vick, W Community Health Worker Primary Care - CC 06/08/21 Lorri Larsen MD [address] [place] [address] Otolaryngology 07/21/21 Rafita Ayers MD [address] [place] [address] Critical Care 11/30/21 Kaelyn New AuD [address] [place] [address] Real Estate Management Specialist Audiology 12/09/21 Marino Hayes MD [address] [place] [address] Cardiovascular Disease 09/28/22 Nataliia Gomez MD [address] [place] [address], [address] [place] [address] Assigned Heart and Vascular Provider 06/07/23 documented as of this encounter
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
--- OUTSIDE RECORDS SUMMARY | 2023-09-06 13:49 | XMS_ITS | Encounter Summary ---
Author Organization [place] Address [address] [place] [address] Care Team Providers Care Enrollment Management Coordinator Name Role Phone Onesimo Bruno MD Primary Care Provider [phone] Bhavna Mac PharmD Unavailable Isaac Bro RN Unavailable [phone] Onesimo Bruno MD Unavailable [phone] Flo Henry MD Unavailable Jana Vick CHW Unavailable Unavailabl e Lorri Larsen MD Unavailable Rafita Ayers MD Unavailable Kaelyn New AuD Unavailable [phone] Marino Hayes MD Unavailable Nataliia Gomez MD Unavailable Reason for Visit * Reason Onset Date Comments Refill Request 07/04/2023 Encounter Details Date Type Department Care Team (Late st Contact Info) Description 07/04/2023 Refill [facility] [address] [place] [phone] Onesimo Bruno MD [address] [place], [place] [phone] Refill Request Social History Tobacco Use Types [...] in an abandoned building, in an overnight skilled nursing, or couch-surfing.) Yes 02/15/2023 Are you worried [...] Description 09/26/2023 11:40 AM CDT Office Visit [facility] [address] [place] [address] Onesimo Bruno MD [address] [place] [address] 11/24/2023 1:20 PM CDT Virtual Visit [facility] Neurology [facility] [address] [place] [phone] Flo Henry MD [address] [place] [address] [phone] documented as of this encounter Goals Goal [...] at outreach telephone calls from the [facility] team Discussed 08/12/23 documented as of this encounter Visit Diagnoses Diagnosis Mild persistent asthma with exacerbation Unspecified asthma, with exacerbation documented in this encounter Additional Health Concerns Active Problems Noted Date Diagnosed Date HP GENERAL PROBLEM 11/13/2021 Assessment Noted Time PHQ-9 Depression Total Score: 7 12/09/19 23 11:14 AM CDT documented as of this encounter Care Teams Enrollment Management Coordinator Relationship Specialty Start Date End Date Onesimo Bruno MD PCP - General 08/11/06 Bhavna Mac, PharmD [address] [place] [address] Pharmacist Pharmacist 07/11/18 Isaac Bro, RN Lead Application Software Developer Primary Care - CC 09/01/18 Onesimo Bruno MD [address] [place] [address] Assigned PCP 07/30/20 Flo Henry MD [address] [address] Assigned Behavioral Health Provider 09/21/20 Jana Vick, W Community Health Worker Primary Care - CC 06/08/21 Lorri Larsen MD [address] [place] [address] Otolaryngology 07/21/21 Rafita Ayers MD [address] [place] [address] Critical Care 11/30/21 Kaelyn New, [facility]5 [place] [address] Community Engagement Manager Audiology 12/09/21 Marino Hayes MD [address] [place] [address] Cardiovascular Disease 09/28/22 Nataliia Gomez MD [address] [facility], [address] [place] [address] Assigned Heart and Vascular Provider 06/07/23 documented as of this encounter
--- OUTSIDE RECORDS SUMMARY | 2023-09-06 13:49 | XMS_ITS | Encounter Summary ---
Author Organization [place] Address [address] [place] [address] Care Team Providers Care Hydramatic Mechanic Name Role Phone Onesimo Bruno MD Primary Care Provider Bhavna Mac PharmD Unavailable Isaac Bro RN Unavailable [phone] Onesimo Bruno MD Unavailable [phone] Flo Henry MD Unavailable [phone] Jana Vick Unavailable Unavailabl e Lorri Larsen MD Unavailable Rafita Ayers MD Unavailable Kaelyn New AuD Unavailable Marino Hayes MD Unavailable [phone] Nataliia Gomez MD Unavailable Reason for Visit * Reason Comments Medication Refill Encounter Details Date Type Department Care Team (Late st Contact Info) Description 09/03/[address] [facility] Neurology Clinic [facility] [address] [place] [address] Flo Henry MD [address] [address] Medication Refill Social History Tobacco Use Types [...] in an abandoned building, in an overnight retirement, or couch-surfing.) Yes 02/15/2023 Are you worried [...] Telephone Encounter - Malcolm Lima MA - 09/05/2023 8:01 AM CDT Refill request for the following medication (s) listed below. Pending Prescriptions: Disp Refills buPROPion (WELLBUTRIN SR) 100 MG 12 hr ta*30 tab*11 Sig: TAKE 1 TABLET BY MOUTH DAILY Last office visit provider: 08/30/23 Next appointment scheduled: 11/24/2023 Medication T'd for review and signature TAO Morfin on 09/05/2023 at 8:02 AM documented in this encounter Plan of Treatment Upcoming Encounters Date Type Department Care Team (Late st Contact Info) Description 09/26/2023 11:40 AM CDT Office Visit [facility] [address] [place] [phone] Onesimo Bruno MD [address] [place] [address] 11/24/2023 1:20 PM CDT Virtual Visit 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 4. I will report progress towards this goal at outreach telephone calls from the [facility] team Discussed 08/12/23 documented as of this encounter Visit Diagnoses Diagnosis Neurocognitive disorder Unspecified persistent mental disorders due to conditions classified elsewhere documented in this encounter Additional Health Concerns Active Problems Noted Date Diagnosed Date HP GENERAL PROBLEM 11/13/2021 Assessment Noted Time PHQ-9 Depression Total Score: 7 12/09/19 23 11:14 AM CDT documented as of this encounter Care Teams Hydramatic Mechanic Relationship Specialty Start Date End Date Onesimo Bruno MD PCP - General 08/11/06 Bhavna Mac PharmD [address] [place] [address] Pharmacist Pharmacist 07/11/18 Isaac Bro, RN Lead Online Marketing Director Primary Care - CC 09/01/18 Onesimo Bruno MD [address] [place] [address] Assigned PCP 07/30/20 Flo Henry MD [facility] [facility] [address] Assigned Behavioral Health Provider 09/21/20 Jana Vick CHW Community Health Worker Primary Care - CC 06/08/21 Lorri Larsen MD [address] [place] [address] Otolaryngology 07/21/21 Rafita Ayers MD 9 [place] [address] Critical Care 11/30/21 Kaelyn New, AuD [address] [place] [address] Cnc Maintenance Technician Audiology 12/09/21 Marino Hayes MD [address] [place] [address] Cardiovascular Disease 09/28/22 Nataliia Gomez MD [address] [place] [address], [address] [place] [address] Assigned Heart and Vascular Provider 06/07/23 documented as of this encounter
--- OUTSIDE RECORDS SUMMARY | 2023-09-06 13:49 | XMS_ITS | Encounter Summary ---
Author Organization [place] Address [address] [place] [address] Care Team Providers Care Shoulder Sawyer Name Role Phone Onesimo Bruno MD Primary Care Provider [phone] Bhavna Mac PharmD Unavailable Isaac Bro RN Unavailable [phone] Onesimo Bruno MD Unavailable [phone] Flo Henry MD Unavailable Jana Vick Unavailable Unavailabl e Lorri Larsen MD Unavailable Rafita Ayers MD Unavailable [phone] Kaelyn New Unavailable [phone] Marino Hayes MD Unavailable Nataliia Gomez MD Unavailable Reason for Visit * Reason Comments Medication Refill Encounter Details Date Type Department Care Team (Late st Contact Info) Description 08/24/2023 Refill [facility] [address] [place] [phone] Onesimo Bruno MD [address] [place], [place] [phone] Medication Refill Social History Tobacco Use Types [...] 09/26/2023 11:40 AM CDT Office Visit [facility] [address] [place] [address] Onesimo Bruno MD [address] [place] [address] 11/24/2023 1:20 PM CDT Virtual Visit [facility] Neurology Clinic [facility] 1875 [place] [phone] Flo Henry MD [address] [place] [address] [phone] documented as of this encounter Goals Goal [...] continue to work with my Weight Watcher's learning coach and start attending their Webinars. 4. I will report progress towards this goal at outreach telephone calls from the [facility] team Discussed 08/12/23 documented as of this encounter Visit Diagnoses Diagnosis Atherosclerosis of [place] coronary artery of [place] heart without angina pectoris documented in this encounter Additional Health Concerns Active Problems Noted Date Diagnosed Date HP GENERAL PROBLEM 11/13/2021 Assessment Noted Time PHQ-9 Depression Total Score: 7 12/09/19 23 11:14 AM CDT documented as of this encounter Care Teams Shoulder Sawyer Relationship Specialty Start Date End Date Onesimo Bruno MD PCP - General 08/11/06 Bhavna Mac, PharmD [address] [place] [address] Pharmacist Pharmacist 07/11/18 Isaac Bro, RN Lead Feather Trimmer Primary Care - CC 09/01/18 Onesimo Bruno MD [address] [place] [address] Assigned PCP 07/30/20 Flo Henry MD [address] [address] Assigned Behavioral Health Provider 09/21/20 Jana Vick, W Community Health Worker Primary Care - CC 06/08/21 Lorri Larsen MD [address] [place] [address] Otolaryngology 07/21/21 Rafita Ayers MD [address] [place] [address] Critical Care 11/30/21 Kaelyn New AuD 1825 [place] [address] Machine Assembler Supervisor Audiology 12/09/21 Marino Hayes MD [address] [place] [address] Cardiovascular Disease 09/28/22 Nataliia Gomez MD [address] [place] [address], [address] [place] [address] Assigned Heart and Vascular Provider 06/07/23 documented as of this encounter
--- OUTSIDE RECORDS SUMMARY | 2023-09-06 13:49 | XMS_ITS | Encounter Summary ---
Author Organization [place] Address [address] [place] [address] Care Team Providers Care Sanitizer Name Role Phone Onesimo Bruno MD Primary Care Provider Bhavna Mac PharmD Unavailable Isaac Bro RN Unavailable [phone] Onesimo Bruno MD Unavailable [phone] Flo Henry MD Unavailable [phone] Jana Vick Unavailable Unavailabl e Lorri Larsen MD Unavailable [phone] Rafita Ayers MD Unavailable [phone] Kaelyn New AuD Unavailable Marino Hayes MD Unavailable Nataliia Gomez MD Unavailable Reason for Visit * Reason Comments Medication Refill Encounter Details Date Type Department Care Team (Late st Contact Info) Description 08/27/2023 [facility] 18[address] [place] [address] Flo Henry MD [address] [address] Medication Refill Social History Tobacco [...] in an abandoned building, in an overnight longterm, or couch-surfing.) Yes 02/15/2023 Are you worried [...] Telephone Encounter - Delfina Dailey MA - 08/30/2023 9:34 AM CDT Refill request for the following medication (s) listed below. Pending Prescriptions: Disp Refills buPROPion (WELLBUTRIN SR) 100 MG 12 hr ta*30 tab*0 Sig: TAKE ONE TABLET BY MOUTH ONCE EVERY DAY Last office visit provider: 06/23/1923 Next appointment scheduled: 08/30/23 Medication T'd for review and signature Delfina Dailey MA on 08/30/2023 at 9:36 AM documented in this encounter Plan of Treatment Upcoming Encounters Date Type Department Care Team (Late st Contact Info) Description 09/26/2023 11:40 AM CDT Office Visit [facility] [address] [place] [address] Onesimo Bruno MD [address] [place] [address] 11/24/2023 1:20 PM CDT Virtual Visit [facility] Neurology [address] [phone] Flo Henry MD [address] [place] [phone] documented as of this encounter Goals Goal [...] to work with my Weight Watcher's assistant baseball coach and start attending their Webinars. [...] documented as of this encounter Care Teams Sanitizer Relationship Specialty Start Date End Date Onesimo Bruno MD PCP - General 08/11/06 Bhavna Mac, Elio [address]70 [place] [address] Pharmacist Pharmacist 07/11/18 Isaac Bro, RN Lead Multimedia Teacher Primary Care - CC 09/01/18 Onesimo Bruno MD 1390 [place] [address] Assigned PCP 07/30/20 Flo Henry MD [address] [place] [address] Assigned Behavioral Health Provider 09/21/20 Jana Vick CHVaibhav Community Health Worker Primary Care - CC 06/08/21 Lorri Larsen MD [address] [place] [address] [phone] Otolaryngology 07/21/21 Rafita Ayers MD [address] [place] [address] Critical Care 11/30/21 Kaelyn New, AuD [address]25 [place] [address] Managing Cognitive Engineer Audiology 12/09/21 Marino Hayes MD [address] [place] [address] Cardiovascular Disease 09/28/22 Nataliia Gomez MD [address] [place] [address], [address] [place] [address] Assigned Heart and Vascular Provider 06/07/23 documented as of this encounter
--- OUTSIDE RECORDS SUMMARY | 2023-09-06 13:49 | XMS_ITS | Encounter Summary ---
Author Organization [place] Address [address] [place] [address] Care Team Providers Care Septic Tank Service Technician Name Role Phone Onesimo Bruno MD Primary Care Provider [phone] Bhavna Mac PharmD Unavailable Isaac Bro RN Unavailable [phone] Onesimo Bruno MD Unavailable [phone] Flo Henry MD Unavailable [phone] Jana Vick CHW Unavailable Unavailabl e Lorri Larsen MD Unavailable [phone] Rafita Ayers MD Unavailable Kaelyn New Unavailable Marino Hayes MD Unavailable [phone] Nataliia Gomez MD Unavailable Reason for Visit * Reason Onset Date Comments Refill Request 07/13/2023 buPROPion (WELLB UTRIN SR) 100 MG 12 hr tablet Encounter Details Date Type Department Care Team (Late st Contact Info) Description 07/13/2023 [facility] Neurology Clinic [address] [phone] Flo Henry MD [address] [place] [phone] Refill Request (buPROPion (WELLBUTRIN SR) 100 MG 12 hr tablet/) Social History Tobacco Use Types Packs/Day Years [...] in an abandoned building, in an overnight alf, or couch-surfing.) Yes 02/15/2023 Are you worried [...] encounter Miscellaneous Notes * Telephone Encounter - Aftab Mckenzie ATC - 07/13/2023 11:20 AM CDT Medication refill T'd up through new encounter. Please see other encounter for medication refill details. Aftab OSHEA ATC on 07/13/2023 at 11:20 AM * Telephone Encounter - Haritha Humphrey - 07/13/2023 9:29 AM CDT [facility] Phone Message May a detailed message be left on voicemail: yes Reason for Call: Medication Refill Request Has the patient contacted the pharmacy for the refill? Yes Name of medication being requested: buPROPion (WELLBUTRIN SR) 100 MG 12 hr tablet Provider who prescribed the medication: Flo Henry MD Pharmacy: [facility] [address] [place] [address] Date medication is needed: 07/23/2023 Pt has 13 pills left. Action Taken: Other: Neurology Travel Screening: Not Applicable documented in this encounter Plan of Treatment Upcoming Encounters Date Type Department Care Team (Late st Contact Info) Description 09/26/2023 11:40 AM CDT Office Visit [facility] 139[address] [place] [address] Onesimo Bruno MD [address] [place] [address] 11/24/2023 1:20 PM CDT Virtual Visit [facility] Neurology Clinic [address] [phone] Flo Henry MD [address] [place] [address] documented as of this encounter Goals Goal [...] goal at outreach telephone calls from the [facility] team Discussed 08/12/23 documented as of this encounter Visit Diagnoses Not on filedocumented in this encounter Additional Health Concerns Active Problems Noted Date Diagnosed Date HP GENERAL PROBLEM 11/13/2021 Assessment Noted Time PHQ-9 Depression Total Score: 7 12/09/19 23 11:14 AM CDT documented as of this encounter Care Teams Septic Tank Service Technician Relationship Specialty Start Date End Date Oneismo Bruno MD PCP - General 08/11/06 Bhavna Mac PharmD [address] [place] [address] Pharmacist Pharmacist 07/11/18 Isaac Bro, RN Lead Mangle Tender Primary Care - CC 09/01/18 Onesimo Bruno MD [address] [place] [address] Assigned PCP 07/30/20 Flo Henry MD [address] [place] [address] Assigned Behavioral Health Provider 09/21/20 Jana Vick, CHW Community Health Worker Primary Care - CC 06/08/21 Lorri Larsen MD [address] [place] [address] Otolaryngology 07/21/21 Rafita Ayers MD [address] [place] [address] Critical Care 11/30/21 Kaelyn New, Shena [address] [place] [address] Content Publisher Audiology 12/09/21 Marino Hayes MD [address] [place] [address] Cardiovascular Disease 09/28/22 Nataliia Gomez MD [address] [place] [address], [address] [place] [address] Assigned Heart and Vascular Provider 06/07/23 documented as of this encounter
--- OUTSIDE RECORDS SUMMARY | 2023-09-06 13:49 | XMS_ITS | Encounter Summary ---
Author Organization [place] Address [address] [place] [address] Care Team Providers Care Die Cutting Machine Operator Name Role Phone Onesimo Bruno MD Primary Care Provider Bhavna Mac PharmD Unavailable Isaac Bro RN Unavailable [phone] Onesimo Bruno MD Unavailable [phone] Pamela Henry MD Unavailable Jana Vick W Unavailable Unavailabl e Lorri Larsen MD Unavailable [phone] Rafita Ayers MD Unavailable [phone] Kaelyn New Unavailable Marino Hayes MD Unavailable Nataliia Gomez MD Unavailable Reason for Visit * Reason Onset Date Comments Medication Question 06/23/2023 venlafaxine (EFFEXOR XR) 150 MG 24 hr capsule Encounter Details Date Type Department Care Team (Late st Contact Info) Description 06/23/2023 [facility] Neurology Clinic [place] [address] [place] [phone] Pamela Henry MD [facility] [address] [phone] Medication Question (venlafaxine (EFFEXOR XR) 150 MG 24 hr capsule ) Social History Tobacco Use Types Packs/Day [...] Date Recorded Do you have housing? (Vasyl rivera is defined as stable permanent housing and does not include staying ouside in a car, in a tent, in an abandoned building, in an overnight [place] [facility], or couch-surfing.) Yes 02/15/2023 Are you worried [...] encounter Miscellaneous Notes * Telephone Encounter - Emory Silver RN - 06/24/2023 11:52 AM CDT Signed Prescriptions: Disp Refills venlafaxine (EFFEXOR XR) 150 MG 24 hr caps*60 cap*3 Sig: Take 2 tablets (300mg) by mouth daily Authorizing Provider: PAMELA HENRY Ordering User: EMORY SILVER RN called pharmacy, they asked for clarification on sig which states take 2 tablets (150mg) daily. Pt has been taking 2 tablets for a total dose of 300mg daily. Per provider note no changes to medications were made yesterday at appt. RN resent rx into pharmacy with updated sig that reads take 2 tablets (300mg) daily Emory Silver RN, BSN [facility] Neurology * Telephone Encounter - Fei Chua - 06/23/2023 12:22 PM CDT [facility] Phone Message May a detailed message be left on voicemail: no Reason for Call: Medication Question or concern regarding medication Prescription Clarification Name of Medication: venlafaxine (EFFEXOR XR) 150 MG 24 hr capsule Prescribing Provider: Dr. Henry Pharmacy: [facility] [address] [place] [address] What on the order needs clarification? Pt pharmacy requesting above prescription be sent, as dosages are listed incorreclty. Two tablets would mean 300mg daily. Return Pharmacy call at [phone]. Action Taken: Message routed to: Other: [facility] Travel Screening: Not Applicable documented in this encounter Plan of Treatment Upcoming Encounters Date Type Department Care Team (Late st Contact Info) Description 09/26/2023 11:40 AM CDT Office Visit [facility] [address] [place] [address] Onesimo Bruno MD [address]0 [place] [address] 11/24/2023 1:20 PM CDT Virtual Visit [facility] Neurology Clinic [facility] 1875 [place] [address] Pamela Henry MD 1874 [facility] [place] [address] [place] [phone] documented as of this encounter Goals Goal [...] continue to work with my Weight Watcher's football coach and start attending their Webinars. 4. I will report progress towards this goal at outreach telephone calls from the [facility] team Discussed 08/12/23 documented as of this encounter Visit Diagnoses Diagnosis Neurocognitive disorder Unspecified persistent mental disorders due to conditions classified elsewhere documented in this encounter Additional Health Concerns Active Problems Noted Date Diagnosed Date HP GENERAL PROBLEM 11/13/2021 Assessment Noted Time PHQ-9 Depression Total Score: 7 12/09/19 23 11:14 AM CDT documented as of this encounter Care Teams Die Cutting Machine Operator Relationship Specialty Start Date End Date Onesimo Bruno MD PCP - General 08/11/06 Bhavna Mac PharmD [address] [place] [address] Pharmacist Pharmacist 07/11/18 Isaac Bro, RN Lead Maintenance Engineer Primary Care - CC 09/01/18 Onesimo Bruno MD [address] [place] [address] Assigned PCP 07/30/20 Pamela Henry MD 1875 [facility] [address] [place] [address] Assigned Behavioral Health Provider 09/21/20 Jana Vick, W Community Health Worker Primary Care - CC 06/08/21 Lorri Larsen MD [address] [place] [address] Otolaryngology 07/21/21 Rafita Ayers MD [address] [place] [address] Critical Care 11/30/21 Kaelyn New, Shena [facility] [place] [address] Funnel Setter Audiology 12/09/21 Marino Hayes MD [address] [place] [address] Cardiovascular Disease 09/28/22 Nataliia Gomez MD [address] [facility], [address] [place] [address] Assigned Heart and Vascular Provider 06/07/23 documented as of this encounter
--- OUTSIDE RECORDS SUMMARY | 2023-09-06 13:49 | XMS_ITS | Encounter Summary ---
Author Organization [place] Address [address] [place] [address] Care Team Providers Care Budget Clerk Name Role Phone Onesimo Bruno MD Primary Care Provider Bhavna Mac PharmD Unavailable Isaac Bro RN Unavailable [phone] Onesimo Bruno MD Unavailable [phone] Flo Henry MD Unavailable [phone] Jana Vick Unavailable Unavailabl e Lorri Larsen MD Unavailable Rafita Ayers MD Unavailable Kaelyn New Unavailable [phone] Marino Hayes MD Unavailable [phone] Nataliia Gomez MD Unavailable Reason for Visit * Reason Onset Date Comments [facility] Cardiopulmonary Rehab 06/16 Encounter Details Date Type Department Care Team (Late st Contact Info) Description 07/14/2023 [facility] 1390 [place] [phone] Onesimo Bruno MD [address]0 [place], [place] [phone] [facility] Cardiopulmonary Rehab Social History Tobacco Use [...] in an abandoned building, in an overnight intermediate, or couch-surfing.) Yes 02/15/2023 Are you worried [...] encounter Miscellaneous Notes * Telephone Encounter - Areli Powell - 07/15/2023 11:30 AM CDT July 15, 2023 Plan assesment was picked up from outbox of Dr. Bruno and sent via fax to [phone]. Areli Powell * Telephone Encounter - Chanda Calix - 07/14/2023 9:59 AM CDT July 14, 2023 [facility] Cardiopulmonary Rehab was received via fax for Dr. Bruno. Patient label was attached to paperwork and placed in provider's inbox to be signed. Chanda Calix documented in this encounter Plan of Treatment Upcoming Encounters Date Type Department Care Team (Late st Contact Info) Description 09/26/2023 11:40 AM CDT Office Visit [address] [address] Onesimo Bruno MD [address] [place] [address] 11/24/2023 1:20 PM CDT Virtual Visit [facility] Neurology [address] [phone] Flo Henry MD [address] [place] [address] documented as of this encounter Goals Goal [...] continue to work with my Weight Watcher's softball coach and start attending their Webinars. 4. I will report progress towards this goal at outreach telephone calls from the [facility] team Discussed 08/12/23 documented as of this encounter Visit Diagnoses Not on filedocumented in this encounter Additional Health Concerns Active Problems Noted Date Diagnosed Date HP GENERAL PROBLEM 11/13/2021 Assessment Noted Time PHQ-9 Depression Total Score: 7 12/09/19 23 11:14 AM CDT documented as of this encounter Care Teams Budget Clerk Relationship Specialty Start Date End Date Onesimo Bruno MD PCP - General 08/11/06 Bhavna Mac, GenesisD 870 [place] [address] Pharmacist Pharmacist 07/11/18 Isaac Bro, RN Lead Layboy Operator Primary Care - CC 09/01/18 Onesimo Bruno MD [address]0 [place] [address] Assigned PCP 07/30/20 Flo Henry MD [address] [place] [address] Assigned Behavioral Health Provider 09/21/20 Jana Vick CHW Community Health Worker Primary Care - CC 06/08/21 Lorri Larsen MD [address] [place] [address] Otolaryngology 07/21/21 Rafita Ayers MD [address] [place] [address] Critical Care 11/30/21 Kaelyn New AuD 1825 [place] [address] Bisque Cleaner Audiology 12/09/21 Marino Hayes MD 516 [place] [address] Cardiovascular Disease 09/28/22 Nataliia Gomez MD [address] [facility], [address] [place] [address] Assigned Heart and Vascular Provider 06/07/23 documented as of this encounter
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
--- OUTSIDE RECORDS SUMMARY | 2023-09-06 13:49 | XMS_ITS | Encounter Summary ---
Author Organization [place] Address [address] [place] [address] Care Team Providers Care Lettuce Cutter Name Role Phone Onesimo Bruno MD Primary Care Provider Bhavna Mac PharmD Unavailable [phone] Isaac Bro RN Unavailable [phone] Onesimo Bruno MD Unavailable [phone] Flo Henry MD Unavailable [phone] Jana Vick CHW Unavailable Unavailabl e Lorri Larsen MD Unavailable Rafita Ayers MD Unavailable Kaelyn New Unavailable [phone] Marino Hayes MD Unavailable Nataliia Gomez MD Unavailable Reason for Visit * Reason Onset Date Comments [employer] [facility] Physician Orders CPAP supplies 09/2023 Encounter Details Date Type Department Care Team (Late st Contact Info) Description 08/22/2023 Telephone [facility] [address] [place] [phone] Onesimo Bruno MD [address] [place], [place] [phone] [employer] [facility] Physician Orders CPAP supplies Social History Tobacco Use Types Packs/Day Years [...] in an abandoned building, in an overnight snf, or couch-surfing.) Yes 02/15/2023 Are you worried [...] * Telephone Encounter - Chanda Calix - 08/22/2023 11:42 AM CDT August 22, 2023 [facility] Physician Orders CPAP supplies was received via fax for Dr. Bruno. Patient label was attached to paperwork and placed in provider's inbox to be signed. Chanda Calix documented in this encounter Plan of Treatment Upcoming Encounters Date Type Department Care Team (Late st Contact Info) Description 09/26/2023 11:40 AM CDT Office Visit [facility] [address] [place] [address] Onesimo Bruno MD [address] [place] [address] 11/24/2023 1:20 PM CDT Virtual Visit [facility] Neurology [address] [phone] Flo Henry MD [address] [place] [phone] documented as of this encounter Goals Goal [...] AT [facility] team Discussed 08/12/23 documented as of this encounter Visit Diagnoses Not on filedocumented in this encounter Additional Health Concerns Active Problems Noted Date Diagnosed Date HP GENERAL PROBLEM 11/13/2021 Assessment Noted Time PHQ-9 Depression Total Score: 7 12/09/19 23 11:14 AM CDT documented as of this encounter Care Teams Lettuce Cutter Relationship Specialty Start Date End Date Onesimo Bruno MD PCP - General 08/11/06 Bhavna Mac, PharmD [address] [place] [address] Pharmacist Pharmacist 07/11/18 Isaac Bro, RN Lead Button Pusher Primary Care - CC 09/01/18 Onesimo Bruno MD [address] [place] [address] Assigned PCP 07/30/20 Fol Henry MD [address] [phone] Assigned Behavioral Health Provider 09/21/20 Jana Vick CHW Community Health Worker Primary Care - CC 06/08/21 Lorri Larsen MD [address] [place] [address] Otolaryngology 07/21/21 Rafita Ayers MD [address] [place] [address] Critical Care 11/30/21 Kaelyn New AuD [address] [place], [place] [phone] Automatic Mounter Audiology 12/09/21 Marino Hayes MD [address] [place] [address] Cardiovascular Disease 09/28/22 Nataliia Gomez MD [address] [facility], [address] [place] [address] Assigned Heart and Vascular Provider 06/07/23 documented as of this encounter
--- OUTSIDE RECORDS SUMMARY | 2023-09-06 13:49 | XMS_ITS | Encounter Summary ---
Author Organization [facility] Address [address] [place] [address] Care Team Providers Care Fleet Dispatch Manager Name Role Phone Onesimo Bruno MD Primary Care Provider Bhavna Mac PharmD Unavailable [phone] Isaac Bro RN Unavailable [phone] Onesimo Bruno MD Unavailable [phone] Flo Henry MD Unavailable [phone] Jana Vick CHW Unavailable Unavailabl e Lorri Larsen MD Unavailable Rafita Ayers MD Unavailable [phone] Kaelyn New Unavailable Marino Hayes MD Unavailable Nataliia Gomez MD Unavailable Reason for Visit * Reason Onset Date Comments [employer] [facility] CPAP Supplies 08/16/2023 Encounter Details Date Type Department Care Team (Late st Contact Info) Description 08/16/2023 Telephone [facility] [address] [place] [phone] Onesimo Bruno MD [address] [place], [place] [phone] [employer] [facility] CPAP Supplies Social History Tobacco [...] in an abandoned building, in an overnight chcf, or couch-surfing.) Yes 02/15/2023 Are you worried [...] * Telephone Encounter - Chanda Calix - 08/16/2023 8:49 AM CDT August 16, 2023 [employer] CPAP Supplies was received via fax for Dr. Bruno. Patient label was attached to paperwork and placed in provider's inbox to be signed. Chanda Calix documented in this encounter Plan of Treatment Upcoming Encounters Date Type Department Care Team (Late st Contact Info) Description 09/26/2023 11:40 AM CDT Office Visit [facility] [address] [place] [address] Onesimo Bruno MD [address] [place] [address] 11/24/2023 1:20 PM CDT Virtual Visit [facility] Neurology [address] [phone] Flo Henry MD [address] [place] [phone] documented as of this encounter Goals Goal [...] continue to work with my Weight Watcher's project manager/team coach and start attending their Webinars. 4. I will report progress towards this goal at outreach telephone calls from the [facility] team Discussed 08/12/23 documented as of this encounter Visit Diagnoses Not on filedocumented in this encounter Additional Health Concerns Active Problems Noted Date Diagnosed Date HP GENERAL PROBLEM 11/13/2021 Assessment Noted Time PHQ-9 Depression Total Score: 7 12/09/19 23 11:14 AM CDT documented as of this encounter Care Teams Fleet Dispatch Manager Relationship Specialty Start Date End Date Onesimo Bruno MD PCP - General 08/11/06 Bhavna Mac, GenesisD [address] [place] [address] Pharmacist Pharmacist 07/11/18 Isaac Bro, RN Lead Tiler'S Assistant Primary Care - CC 09/01/18 Onesimo Bruno MD [address] [place] [address] Assigned PCP 07/30/20 Flo Henry MD [address] [phone] Assigned Behavioral Health Provider 09/21/20 Jana Vick, W Community Health Worker Primary Care - CC 06/08/21 Lorri Larsen MD [address] [place] [address] Otolaryngology 07/21/21 Rafita Ayers MD [address] [place] [phone] Critical Care 11/30/21 Kaelyn New AuD [address] [place], [place] [phone] [place] Worker Audiology 12/09/21 Marino Hayes MD [address] [place] [address] Cardiovascular Disease 09/28/22 Nataliia Gomez MD [address] [place] [address], [address] [place], [place] [phone] Assigned Heart and Vascular Provider 06/07/23 documented as of this encounter
--- OUTSIDE RECORDS SUMMARY | 2023-09-06 13:49 | XMS_ITS | Encounter Summary ---
Author Organization [facility] Address [address] [place] [address] Care Team Providers Care Educational Paraprofessional Name Role Phone Onesimo Bruno MD Primary Care Provider Bhavna Mac PharmD Unavailable [phone] Isaac Bro RN Unavailable [phone] Onesimo Bruno MD Unavailable [phone] Flo Henry MD Unavailable [phone] Jana Vick CHW Unavailable Unavailabl e Lorri Larsen MD Unavailable [phone] Rafita Ayers MD Unavailable Kaelyn New AuD Unavailable Marino Hayes MD Unavailable [phone] Nataliia Gomez MD Unavailable Reason for Visit * Reason Onset Date Comments Refill Request 07/13/2023 Encounter Details Date Type Department Care Team (Late st Contact Info) Description 07/13/2023 Trinidad Connor [facility] [place] [address] [place] [phone] Flo Henry MD [address] [phone] Refill Request Social History Tobacco Use Types [...] in an abandoned building, in an overnight senior care, or couch-surfing.) Yes 02/15/2023 Are you worried [...] 09/26/2023 11:40 AM CDT Office Visit [facility] [address] [place] [address] Onesimo Bruno MD [address] [place] [address] 11/24/2023 1:20 PM CDT Virtual Visit [facility] [address] [place] [phone] Flo Henry MD [address] [place] [phone] documented as of this encounter Goals Goal [...] goal at outreach telephone calls from the [facility] team Discussed 08/12/23 documented as of this encounter Visit Diagnoses Diagnosis Neurocognitive disorder Unspecified persistent mental disorders due to conditions classified elsewhere documented in this encounter Additional Health Concerns Active Problems Noted Date Diagnosed Date HP GENERAL PROBLEM 11/13/2021 Assessment Noted Time PHQ-9 Depression Total Score: 7 12/09/19 23 11:14 AM CDT documented as of this encounter Care Teams Educational Paraprofessional Relationship Specialty Start Date End Date Onesimo Bruno MD PCP - General 08/11/06 Bhavna Mac, PharmD [address] [place] [address] Pharmacist Pharmacist 07/11/18 Isaac Bro, RN Lead Supervisor Mirror Fabrication Primary Care - CC 09/01/18 Onesimo Bruno MD [address] [place] [address] Assigned PCP 07/30/20 Flo Henry MD [address] [phone] Assigned Behavioral Health Provider 09/21/20 Jana Vick, W Community Health Worker Primary Care - CC 06/08/21 Lorri Larsen MD [address] [place] [address] Otolaryngology 07/21/21 Rafita Ayers MD [address] [place] [address] Critical Care 11/30/21 Kaelyn New, [facility]5 [place] [address] Assembly Line Worker Audiology 12/09/21 Marino Hayes MD [address] [place] [address] Cardiovascular Disease 09/28/22 Nataliia Gomez MD [address] [facility], [address] [place] [address] Assigned Heart and Vascular Provider 06/07/23 documented as of this encounter
--- OUTSIDE RECORDS SUMMARY | 2023-09-06 13:49 | XMS_ITS | Encounter Summary ---
Author Organization [place] Address [address] [place] [address] Care Team Providers Care Earth Science Technician Name Role Phone Onesimo Bruno MD Primary Care Provider Bhavna Mac PharmD Unavailable Isaac Bro RN Unavailable [phone] Onesimo Bruno MD Unavailable [phone] Flo Henry MD Unavailable [phone] Jana Vick CHW Unavailable Unavailabl e Lorri Larsen MD Unavailable [phone] Rafita Ayers MD Unavailable Kaelyn New AuD Unavailable Marino Hayes MD Unavailable Nataliia Gomez MD Unavailable Reason for Visit * Reason Onset Date Comments Refill Request 08/29/2023 Encounter Details Date Type Department Care Team (Late st Contact Info) Description 08/29/2023 Trinidad Connor [facility] Neurology Clinic [place] [address] [place] [phone] Flo Henry MD [address] [phone] Refill Request Social History Tobacco Use Types [...] Telephone Encounter - Delfina Dailey MA - 08/29/2023 2:10 PM CDT Refill request for the following medication (s) listed below. Pending Prescriptions: Disp Refills venlafaxine (EFFEXOR XR) 150 MG 24 hr cap*60 cap*3 Sig: Take 2 tablets (300mg) by mouth daily Last office visit provider: 06/23/23 Next appointment scheduled: 08/30/23 Medication T'd for review and signature Delfina Dailey MA on 08/29/2023 at 2:12 PM documented in this encounter Plan of Treatment Upcoming Encounters Date Type Department Care Team (Late st Contact Info) Description 09/26/2023 11:40 AM CDT Office Visit [facility] [address] [place] [phone] Onesimo Bruno MD [address] [place] [address] 11/24/2023 1:20 PM CDT Virtual Visit [facility] Neurology [address] [phone] Flo Henry MD [address] [place] [address] [phone] documented as of this encounter Goals Goal [...] continue to work with my Weight Watcher's trampoline team coach and start attending their Webinars. 4. [...] documented as of this encounter Care Teams Earth Science Technician Relationship Specialty Start Date End Date Onesimo Bruno MD PCP - General 08/11/06 Bhavna Mac PharmD 870 [place] [address] Pharmacist Pharmacist 07/11/18 Isaac Bro, RN Lead Special Services Coordinator Primary Care - CC 09/01/18 Onesimo Bruno MD 1390 [place] [address] Assigned PCP 07/30/20 Flo Henry MD [facility] [address] Assigned Behavioral Health Provider 09/21/20 Jana Vick CHW Community Health Worker Primary Care - CC 06/08/21 Lorri Larsen MD [address] [place] [address] 358925 Otolaryngology 07/21/21 Rafita Ayers MD [address] [place] [address] Critical Care 11/30/21 Kaelyn New AuD 1825 [place] [address] Student Services Counselor Audiology 12/09/21 Marino Hayes MD 6 [place] [address] Cardiovascular Disease 09/28/22 Nataliia Gomez MD 1600 [facility], [address] [place] [address] Assigned Heart and Vascular Provider 06/07/23 documented as of this encounter
--- OUTSIDE RECORDS SUMMARY | 2023-09-06 13:50 | XMS_ITS | Encounter Summary ---
Author Organization [facility] Address [address] [place] [address] Care Team Providers Care Radiation Protection Specialist Name Role Phone Onesimo Bruno MD Primary Care Provider Bhavna Mac PharmD Unavailable [phone] Isaac Bro RN Unavailable [phone] Onesimo Bruno MD Unavailable [phone] Rafita Ayers MD Unavailable [phone] Flo Henry MD Unavailable [phone] Jana Vick W Unavailable Unavailabl Lorri Luo MD Unavailable [phone] Rafita Ayres MD Unavailable [phone] Kaelyn New Unavailable [phone] Marino Hayes MD Unavailable [phone] Marino Hayes MD Unavailable + [phone] Nataliia Gomez MD Unavailable Reason for Visit * Reason Onset Date Comments [facility] Immunodeficiency Screening T est 06/06/2023 Encounter Details Date Type Department Care Team (Late st Contact Info) Description 06/06/2023 Telephone [facility] 1390 [place] [address] Onesimo Bruno MD 1390 [place] [address] [facility] Immunodeficiency Screening Test Social History Tobacco Use Types Packs/Day Years [...] in an abandoned building, in an overnight fpc, or couch-surfing.) Yes 02/15/2023 Are you worried [...] encounter Miscellaneous Notes * Telephone Encounter - Yon Lerma - 06/10/2023 11:28 AM CDT [facility] called. Read below. No further questions. * Telephone Encounter - Chanda aClix - 06/10/2023 10:13 AM CDT Spoke with patient letting him know that Dr Bruno will not be signed the form for: [employer] Pt stating that was OK and to destroy the form * Telephone Encounter - Chanda Calix - 06/06/2023 9:35 AM CDT June 06, 2023 [employer] Immunodeficiency Screening Test was received via fax for Dr. Bruno. Patient label was attached to paperwork and placed in [facility] PCP or Covering Provider: provider's inbox to be signed. Chanda Calix documented in this encounter Plan of Treatment Upcoming Encounters Date Type Department Care Team (Late st Contact Info) Description 09/26/2023 11:40 AM CDT Office Visit [facility] [address] [place] [phone] Onesimo Bruno MD 1390 [place] [address] 11/24/2023 1:20 PM CDT Virtual Visit [facility] Neurology Clinic [address] [phone] Flo Henry MD [address] [place] [address] documented as of this encounter Goals Goal [...] to work with my Weight Watcher's assistant football coach and start attending their Webinars. 4. I will report progress towards this goal at outreach telephone calls from the [facility] team Discussed 08/12/23 documented as of this encounter Visit Diagnoses Not on filedocumented in this encounter Additional Health Concerns Active Problems Noted Date Diagnosed Date HP GENERAL PROBLEM 11/13/2021 Assessment Noted Time PHQ-9 Depression Total Score: 7 12/09/19 23 11:14 AM CDT documented as of this encounter Care Teams Radiation Protection Specialist Relationship Specialty Start Date End Date Onesimo Bruno MD PCP - General 08/11/06 Bhavna Mac PharmD 870 [place] [address] Pharmacist Pharmacist 07/11/18 Isaac Bro, RN Lead Solderer Electronic Primary Care - CC 09/01/18 Onesimo Bruno MD 1390 [place] [address] Assigned PCP 07/30/20 Rafita Ayers MD 909 [place] [address] Assigned Pulmonology Provider 10/12/20 06/06/23 Flo Henry MD [address] [address] Assigned Behavioral Health Provider 09/21/20 Jana Vick, [facility] Community Health Worker Primary Care - CC 06/08/21 Lorri Larsen MD [address] [place] [address] Otolaryngology 07/21/21 Rafita Ayers MD [address] [place] [address] Critical Care 11/30/21 Kaelyn New, [place] [facility]5 [place] [address] Trimmer Operator Three Knife Audiology 12/09/21 Marino Hayes MD [address] [place] [address] Cardiovascular Disease 09/28/22 Marino Hayes MD [address] [place] [address] Assigned Heart and Vascular Provider 10/09/22 06/06/23 Nataliia Gomez MD [address] [place] [address], [address] [place] [address] Assigned Heart and Vascular Provider 06/07/23 documented as of this encounter
--- OUTSIDE RECORDS SUMMARY | 2023-09-06 13:50 | XMS_ITS | Encounter Summary ---
Author Organization [facility] Address [address] [place] [address] Care Team Providers Care Green Building Design Specialist Name Role Phone Onesimo Bruno MD Primary Care Provider [phone] Bhavna Mac PharmD Unavailable Isaac Bro RN Unavailable [phone] Onesimo Bruno MD Unavailable [phone] Rafita Ayers MD Unavailable [phone] Flo Henry MD Unavailable [phone] Jana Vick Vaibhav Unavailable Unavailabl Lorri Luo MD Unavailable [phone] Rafita Ayers MD Unavailable [phone] Kaelyn New Unavailable [phone] Marino Hayes MD Unavailable [phone] Marino Hayes MD Unavailable [phone] Reason for Visit * Reason Onset Date Comments message to provider/team 05/30/2023 Encounter Details Date Type Department Care Team (Late st Contact Info) Description 05/30/2023 Trinidad Connor [facility] Neurology Clinic [facility] 1874 [place] [phone] Flo Henry MD [address] [address] message to provider/team Social History Tobacco Use Types Packs/Day Years [...] in an abandoned building, in an overnight mcc, or couch-surfing.) Yes 02/15/2023 Are you worried [...] Telephone Encounter - Malcolm Lima MA - 05/30/2023 2:[address] Henry, Can you please re order the meds? It was my fault. I meant to change the pharmacy to [facility]. Meds have been set up for re-auth. Thank you. TAO Morfin on 05/30/2023 at 2:10 PM * Telephone Encounter - Emory Sarkar RN - 05/30/2023 12:05 PM CDT Malcolm venlafaxine was refilled by Dr. Henry today but sent to mail order pharmacy, per message below pt is out today. Will you call and ask what pharmacy a 1 week supply can be sent to while they wait for mail order? (Would need to be a local pharmacy). Let me know! Emory * Telephone Encounter - Nohemi Kate - 05/30/2023 11:43 AM CDT [facility] Call Center Phone Message May a detailed message be left on voicemail: yes Reason for Call: Cordell, patient's spouse leaving a message to let care team know patient has an appointment 06/22/[address] Henry and would like his prescription refilled per earlier conversation with luis. (Venlafaxine) Patient out of medication and would like to pickup today. Action Taken: [facility] Travel Screening: Not Applicable documented in this encounter Plan of Treatment Upcoming Encounters Date Type Department Care Team (Late st Contact Info) Description 09/26/2023 11:40 AM CDT Office Visit [facility] 1390 [place] [address] Onesimo Bruno MD 1390 [place] [address] 11/24/2023 1:20 PM CDT Virtual Visit [facility] Neurology Clinic [facility] [address] [place] [address] Flo Henry MD 1874 [facility] [address] [place], [place] [phone] documented as of this encounter Goals Goal [...] continue to work with my Weight Watcher's golf coach and start attending their Webinars. 4. I will report progress towards this goal at outreach telephone calls from the [facility] team Discussed 08/12/23 documented as of this encounter Visit Diagnoses Diagnosis Neurocognitive disorder Unspecified persistent mental disorders due to conditions classified elsewhere documented in this encounter Additional Health Concerns Active Problems Noted Date Diagnosed Date HP GENERAL PROBLEM 11/13/2021 Assessment Noted Time PHQ-9 Depression Total Score: 7 12/09/19 23 11:14 AM CDT documented as of this encounter Care Teams Green Building Design Specialist Relationship Specialty Start Date End Date Onesimo Bruno MD PCP - General 08/11/06 Bhavna Mac PharmD 870 [place] [address] Pharmacist Pharmacist 07/11/18 Isaac Bro, RN Lead Flat Ironer Primary Care - CC 09/01/18 Onesimo Bruno MD 1390 [place] [address] Assigned PCP 07/30/20 Rafita Ayers MD [address] [place] [address] Assigned Pulmonology Provider 10/12/20 06/06/23 Flo Henry MD [address] [address] Assigned Behavioral Health Provider 09/21/20 Jana Vick W Community Health Worker Primary Care - CC 06/08/21 Lorri Larsen MD [address] [place] [address] Otolaryngology 07/21/21 Rafita Ayers MD [address] [place] [address] Critical Care 11/30/21 Kaelyn New AuD [facility]5 [place] [address] Burlapper Audiology 12/09/21 Marino Hayes MD [address] [place] [address] Cardiovascular Disease 09/28/22 Marino Hayes MD [address] [place] [address] Assigned Heart and Vascular Provider 10/09/22 06/06/23 documented as of this encounter
--- OUTSIDE RECORDS SUMMARY | 2023-09-06 13:50 | XMS_ITS | Encounter Summary ---
Author Organization [facility] Address [address] [place] [address] Care Team Providers Care Oven Dumper Name Role Phone Onesimo Bruno MD Primary Care Provider [phone] Bhavna Mca PharmD Unavailable [phone] Isaac Bro RN Unavailable [phone] Onesimo Bruno MD Unavailable [phone] Nataliia Gomez MD Unavailable Rafita Ayers MD Unavailable [phone] Flo Henry MD Unavailable [phone] Jana Vick W Unavailable Unavailabl Lorri Luo MD Unavailable [phone] Lorri Larsen MD Unavailable [phone] Rafita Ayers MD Unavailable [phone] Kaelyn New Unavailable [phone] Marino Hayes MD Unavailable + [phone] Marino Hayes MD Unavailable + [phone] Nataliia Gomez MD Unavailable Reason for Visit * Reason Comments Medication Refill Encounter Details Date Type Department Care Team (Late st Contact Info) Description 05/30/2022 [facility] 1600 [facility] [address] [place] [address] Nataliia Gomez MD 1600 [facility], [address] [place] [address] Medication Refill Social History Tobacco Use Types [...] Description 09/26/2023 11:40 AM CDT Office Visit [address] [phone] Onesimo Bruno MD [address] [place] [address] 11/24/2023 1:20 PM CDT Virtual Visit [facility] Neurology Clinic [address] [phone] Flo Henry MD [address] [place] [address] documented as of this encounter Goals Goal [...] work with my Weight Watcher's assistant women's soccer coach and start attending their Webinars. 4. I will report progress towards this goal at outreach telephone calls from the [facility] team Discussed 08/12/23 documented as of this encounter Visit Diagnoses Diagnosis Elevated brain natriuretic peptide (BNP) level Other nonspecific findings on examination of blood documented in this encounter Additional Health Concerns Active Problems Noted Date Diagnosed Date HP GENERAL PROBLEM 11/13/2021 Assessment Noted Time PHQ-9 Depression Total Score: 8 04/16/19 23 9:42 AM EYE CLINIC MANAGER documented as of this encounter Care Teams Oven Dumper Relationship Specialty Start Date End Date Onesimo Bruno MD PCP - General 08/11/06 Bhavna Mac PharmD 870 [place] [address] Pharmacist Pharmacist 07/11/18 Isaac Bro, RN Lead Oncology Research Rn Primary Care - CC 09/01/18 Onesimo Bruno MD 1390 [place] [address] Assigned PCP 07/30/20 Nataliia Gomez MD 1600 [facility], [address] [place] [address] Assigned Heart and Vascular Provider 08/29/20 10/08/22 Rafita Ayers MD 909 [place] [address] Assigned Pulmonology Provider 10/12/20 06/06/23 lFo Henry MD [facility] [address] [address] Assigned Behavioral Health Provider 09/21/20 Jana Vick, W Community Health Worker Primary Care - CC 06/08/21 Lorri Larsen MD [address] [place] [address] Otolaryngology 07/21/21 Lorri Larsen MD [address] [place] [address] Assigned Surgical Provider 10/10/21 04/28/23 Rafita Ayers MD [address] [place] [address] Critical Care 11/30/21 Kaelyn New AuD [address] [place] [address] Assurance Services Manager Health Care Audiology 12/09/21 Marino Hayes MD [address] [place] [address] Cardiovascular Disease 09/28/22 Marino Hayes MD [address] [place] [address] Assigned Heart and Vascular Provider 10/09/22 06/06/23 Nataliia Gomez MD [address] [place] [address], [address] [place] [address] Assigned Heart and Vascular Provider 06/07/23 documented as of this encounter
--- OUTSIDE RECORDS SUMMARY | 2023-09-06 13:50 | XMS_ITS | Encounter Summary ---
Author Organization [facility] Address [address] [place] [address] Care Team Providers Care Spanisher Name Role Phone Onesimo Bruno MD Primary Care Provider [phone] Bhavna Mac PharmD Unavailable [phone] Isaac Bro RN Unavailable [phone] Onesimo Bruno MD Unavailable [phone] Nataliia Gomez MD Unavailable Rafita Ayers MD Unavailable [phone] Flo Henry MD Unavailable [phone] Jana Vick W Unavailable Unavailabl Lorri Luo MD Unavailable [phone] Lorri Larsen MD Unavailable [phone] Rafita Ayers MD Unavailable +[phone] Kaelyn New Unavailable [phone] Marino Hayes MD Unavailable [phone] Marino Hayes MD Unavailable + [phone] Nataliia Gomez MD Unavailable Encounter Details Date Type Department Care Team (Late st Contact Info) Description 08/09/2022 [facility] Neurology Clinic [address] [phone] Malcolm Lima MA Social History Tobacco Use [...] Description 09/26/2023 11:40 AM CDT Office Visit [address] [address] Onesimo Bruno MD [address] [place] [address] 11/24/2023 1:20 PM CDT Virtual Visit [facility] Neurology Clinic [address] [phone] Flo Henry MD [address] [place] [phone] documented as of this encounter Goals Goal [...] work with my Weight Watcher's high school academic coach and start attending their Webinars. 4. I will report progress towards this goal at outreach telephone calls from the [facility] team Discussed 08/12/23 documented as of this encounter Visit Diagnoses Not on filedocumented in this encounter Additional Health Concerns Active Problems Noted Date Diagnosed Date HP GENERAL PROBLEM 11/13/2021 Assessment Noted Time PHQ-9 Depression Total Score: 8 04/16/19 23 9:42 AM STUFFING MACHINE OPERATOR documented as of this encounter Care Teams Spanisher Relationship Specialty Start Date End Date Onesimo Bruno MD PCP - General 08/11/06 Bhavna Mac, GenesisD [address] [place] [address] Pharmacist Pharmacist 07/11/18 Isaac Bro, RN Lead Tobacco Educator Primary Care - CC 09/01/18 Onesimo Bruno MD 1390 [place] [address] Assigned PCP 07/30/20 Nataliia Gomez MD 1600 [facility], [address] [place] [address] Assigned Heart and Vascular Provider 08/29/20 10/08/22 Rafita Ayers MD 909 [place] [address] Assigned Pulmonology Provider 10/12/20 06/06/23 Flo Henry MD [facility]5 [address] [address] Assigned Behavioral Health Provider 09/21/20 Jana Vick, W Community Health Worker Primary Care - CC 06/08/21 Lorri Larsen MD [address] [place] [address] Otolaryngology 07/21/21 Lorri Larsen MD [address] [place] [address] Assigned Surgical Provider 10/10/21 04/28/23 Rafita Ayers MD [address] [place] [address] Critical Care 11/30/21 Kaelyn New AuD [address] [place] [address] Business Development Officer Audiology 12/09/21 Marino Hayes MD [address] [place] [address] Cardiovascular Disease 09/28/22 Marino Hayes MD [address] [place] [address] Assigned Heart and Vascular Provider 10/09/22 06/06/23 Nataliia Gomez MD [address] [place] [address], [address] [place] [address] Assigned Heart and Vascular Provider 06/07/23 documented as of this encounter
--- OUTSIDE RECORDS SUMMARY | 2023-09-06 13:50 | XMS_ITS | Encounter Summary ---
Author Organization [facility] Address [address] [place] [address] Care Team Providers Care Nurse School Name Role Phone Onesimo Bruno MD Primary Care Provider [phone] Bhavna Mac PharmD Unavailable [phone] Isaac Bro RN Unavailable [phone] Onesimo Bruno MD Unavailable [phone] Rafita Ayers MD Unavailable [phone] Flo Henry MD Unavailable [phone] Jana Vick W Unavailable Unavailabl e Lrori Larsen MD Unavailable [phone] Lorri Larsen MD Unavailable [phone] Rafita Ayers MD Unavailable [phone] Kaelyn New Unavailable [phone] Marino Hayes MD Unavailable + [phone] Marino Hayes MD Unavailable + [phone] Nataliia Gomez MD Unavailable Encounter Details Date Type Department Care Team (Late st Contact Info) Description 12/13/2022 [facility] Cancer [address] [address] Rafita Ayers MD [address] [place] [address] Social History Tobacco Use Types Packs/Day Years [...] in an abandoned building, in an overnight fci, or couch-surfing.) Yes 02/15/2023 Are you worried [...] Description 09/26/2023 11:40 AM CDT Office Visit [facility] 1390 [place] [address] Onesimo Bruno MD 1390 [place] [address] 11/24/2023 1:20 PM CDT Virtual Visit [facility] Neurology [facility] 1875 [place] [address] Flo Henry MD [address] [place] [address] [phone] documented as of this encounter Goals Goal [...] calls from the [facility] team Discussed 08/12/23 documented as of this encounter Visit Diagnoses Not on filedocumented in this encounter Additional Health Concerns Active Problems Noted Date Diagnosed Date HP GENERAL PROBLEM 11/13/2021 Assessment Noted Time PHQ-9 Depression Total Score: 7 12/09/19 23 11:14 AM CDT documented as of this encounter Care Teams Nurse School Relationship Specialty Start Date End Date Onesimo Bruno MD PCP - General 08/11/06 Bhavna Mac, GenesisD 870 [place] [address] Pharmacist Pharmacist 07/11/18 Isaac Bro, RN Lead Newspaper Correspondent Primary Care - CC 09/01/18 Onesimo Bruno MD 1390 [place] [address] Assigned PCP 07/30/20 Rafita Ayers MD [address] [place] [address] Assigned Pulmonology Provider 10/12/20 06/06/23 Flo Henry MD [address] [place] [address] Assigned Behavioral Health Provider 09/21/20 Jana Vick W Community Health Worker Primary Care - CC 06/08/21 Lorri Larsen MD [address] [place] [address] Otolaryngology 07/21/21 Lorri Larsen MD [address] [place] [address] Assigned Surgical Provider 10/10/21 04/28/23 Rafita Ayers MD [address] [place] [address] Critical Care 11/30/21 Kaelyn New, [place] [address] [place] [address] Cushion Gum Applicator Audiology 12/09/21 Marino Hayes MD [address] [place] [address] Cardiovascular Disease 09/28/22 Marino Hayes MD [address] [place] [address] Assigned Heart and Vascular Provider 10/09/22 06/06/23 Nataliia Gomez MD [address] [place] [address], [address] [place] [address] Assigned Heart and Vascular Provider 06/07/23 documented as of this encounter
--- OUTSIDE RECORDS SUMMARY | 2023-09-06 13:50 | XMS_ITS | Encounter Summary ---
Author Organization [place] Address [address] [place] [address] Care Team Providers Care Prospecting Driller Helper Name Role Phone Onesimo Bruno MD Primary Care Provider [phone] Bhavna Mac PharmD Unavailable [phone] Isaac Bro RN Unavailable [phone] Onesimo Bruno MD Unavailable [phone] Nataliia Gomez MD Unavailable Rafita Ayers MD Unavailable +[phone] Flo Henry MD Unavailable +[phone] Jana Vick W Unavailable Unavailabl e Lorri Larsen MD Unavailable +[phone] Lorri Larsen MD Unavailable +[phone] Rafita Ayers MD Unavailable +[phone] Kaelyn New Unavailable +[phone] Marino Hayes MD Unavailable + [phone] Marino Hayes MD Unavailable + [phone] Nataliia Gomez MD Unavailable Encounter Details Date Type Department Care Team (Late st Contact Info) Description 05/20/2022 [facility] [address] [place] [place] [address] Chandler Day MD [address] [place] [address] Social History Tobacco Use Types Packs/Day Years [...] 09/26/2023 11:40 AM CDT Office Visit [facility] [address] [place] [phone] Onesimo Bruno MD 1390 [place] [address] 11/24/2023 1:20 PM CDT Virtual Visit [facility] Neurology [address] [phone] Flo Henry MD [address] [place] [address] [phone] documented as of this encounter Goals Goal [...] continue to work with my Weight Watcher's classroom technology coach and start attending their Webinars. 4. 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 documented as of this encounter Care Teams Prospecting Driller Helper Relationship Specialty Start Date End Date Onesimo Bruno MD PCP - General 08/11/06 Bhavna Mac, GenesisD [address] [place] [address] Pharmacist Pharmacist 07/11/18 Isaac Bro, RN Lead Advertising Inserter Primary Care - CC 09/01/18 Onesimo Bruno MD [address] [place] [address] Assigned PCP 07/30/20 Nataliia Gomez MD [address] [facility], [address] [place] [address] Assigned Heart and Vascular Provider 08/29/20 10/08/22 Rafita Ayers MD [address] [place] [address] Assigned Pulmonology Provider 10/12/20 06/06/23 Flo Henry MD [facility] [address] [address] Assigned Behavioral Health Provider 09/21/20 Jana Vick, [facility] Community Health Worker Primary Care - CC 06/08/21 Lorri Larsen MD [address] [place] [address] Otolaryngology 07/21/21 Lorri Larsen MD [address] [place] [address] Assigned Surgical Provider 10/10/21 04/28/23 Rafita Ayers MD [address] [place] [address] Critical Care 11/30/21 Kaelyn New, [place] [address] [place] [address] Gas Pump Attendant Audiology 12/09/21 Marino Hayes MD [address] [place] [address] Cardiovascular Disease 09/28/22 Marino Hayes MD [address] [place] [address] Assigned Heart and Vascular Provider 10/09/22 06/06/23 Nataliia Gomez MD [address] [place] [address], [address] [place] [address] Assigned Heart and Vascular Provider 06/07/23 documented as of this encounter
--- OUTSIDE RECORDS SUMMARY | 2023-09-06 13:50 | XMS_ITS | Encounter Summary ---
Author Organization [place] Address [address] [place] [address] Care Team Providers Care [place] Name Role Phone Onesimo Bruno MD Primary Care Provider [phone] Bhavna Mac PharmD Unavailable [phone] Isaac Bro RN Unavailable [phone] Onesimo Bruno MD Unavailable [phone] Nataliia Gomez MD Unavailable Luly Grant MD Unavailable +[phone] Rafita Ayers MD Unavailable +[phone] Flo Henry MD Unavailable [phone] Jana Vick CHW Unavailable Unavailabl Tor Saldana DPM Unavailable +[phone] Lorri Larsen MD Unavailable +[phone] Lorri Larsen MD Unavailable +[phone] Rafita Ayers MD Unavailable +[phone] Kaelyn New Unavailable [phone] Marino Hayes MD Unavailable + [phone] Marino Hayes MD Unavailable + [phone] Nataliia Gomez MD Unavailable Encounter Details Date Type Department Care Team (Late st Contact Info) Description 03/05/[address] [facility] [address] [place] [address] Vane Castro Social History Tobacco Use Types [...] Coronavirus/COVID-19? No / Unsure 03/02/2022 12:59 AM COIN COUNTER AND WRAPPER documented as of this encounter Plan of Treatment Upcoming Encounters Date Type Department Care Team (Late st Contact Info) Description 09/26/2023 11:40 AM CDT Office Visit [facility] [address] [place] [phone] [place] [address] [place] [address] 11/24/2023 1:20 PM CDT Virtual Visit [facility] Neurology Clinic [address] [phone] Flo Henry MD [address] [place] [address] [phone] documented as of this encounter Goals Goal [...] to work with my Weight Watcher's life skills coach and start attending their Webinars. 4. I will report progress towards this goal at outreach telephone calls from the [facility] team Discussed 08/12/23 documented as of this encounter Visit Diagnoses Not on filedocumented in this encounter Additional Health Concerns Active Problems Noted Date Diagnosed Date HP GENERAL PROBLEM 11/13/2021 Assessment Noted Time PHQ-9 Depression Total Score: 10 024 7:49 AM CDT documented as of this encounter Care Teams [place] Relationship Specialty Start Date End Date Onesimo Bruno MD PCP - General 08/11/06 Bhavna Mac, PharmD [address] [place] [address] Pharmacist Pharmacist 07/11/18 Isaac Bro, RN Lead Retort Forker Primary Care - CC 09/01/18 Onesimo Bruno MD 1390 [place] [address] Assigned PCP 07/30/20 Nataliia Gomez MD [address] [facility], [address] [place], [place] [phone] Assigned Heart and Vascular Provider 08/29/20 10/08/22 Luly Grant MD [address] [facility] [address] [place] [address] Assigned Allergy Provider 08/29/20 04/16/22 Rafita Ayers MD [address] [place] [address] Assigned Pulmonology Provider 10/12/20 06/06/23 Flo Henry MD [address] [address] Assigned Behavioral Health Provider 09/21/20 Jana Vick, W Community Health Worker Primary Care - CC 06/08/21 Tor Joseph DPM [facility] [address], [place] [address] Assigned Musculoskeletal Provider 07/05/21 03/19/22 Lorri Larsen MD [address] [place] [address] Otolaryngology 07/21/21 Lorri Larsen MD [address] [place] [address] Assigned Surgical Provider 10/10/21 04/28/23 Rafita Ayers MD [address] [place] [address] Critical Care 11/30/21 Kaelyn New AuD [facility]5 [place] [address] Windows Server Specialist Audiology 12/09/21 Marino Hayes MD [address] [place] [address] Cardiovascular Disease 09/28/22 Marino Hayes MD [address] [place] [address] Assigned Heart and Vascular Provider 10/09/22 06/06/23 Nataliia Gomez MD [address] [place] [address], [address] [place] [address] Assigned Heart and Vascular Provider 06/07/23 documented as of this encounter
--- OUTSIDE RECORDS SUMMARY | 2023-09-06 13:50 | XMS_ITS | Encounter Summary ---
Author Organization [place] Address [address] [place] [address] Care Team Providers Care Cement Fittings Maker Name Role Phone Onesimo Bruno MD Primary Care Provider Bhavna Mac PharmD Unavailable [phone] Isaac Bro RN Unavailable [phone] Onesimo Bruno MD Unavailable [phone] Rafita Ayers MD Unavailable [phone] Flo Henry MD Unavailable [phone] Jana Vick W Unavailable Unavailabl Lorri Luo MD Unavailable +[phone] Rafita Ayers MD Unavailable [phone] Kaelyn New Unavailable [phone] Marino Hayes MD Unavailable [phone] Marino Hayes MD Unavailable [phone] Reason for Visit * Reason Onset Date Comments Refill Request 05/30/2023 venlafaxine (EFF EXOR XR) 150 MG 24 hr capsule Encounter Details Date Type Department Care Team (Late st Contact Info) Description 05/30/2023 Telephone [facility] Clinic [place] [address] [place] [phone] Flo Henry MD [facility] [address] [phone] Refill Request (venlafaxine (EFFEXOR XR) 150 MG 24 hr capsule) Social History Tobacco Use Types Packs/Day Years [...] in an abandoned building, in an overnight fdc, or couch-surfing.) Yes 02/15/2023 Are you worried [...] Encounter - Malcolm Lima MA - 05/30/2023 9:29 AM CDT Left a detailed msg for pt's spouse (consent form in chart) letting him know that pt is due for a f/up appt and he will need to be seen for further refills and that I did forward the refill request to Dr. Henry to see if he will approve 1 month worth supply so that way it will give him enough till he schedules his appt. TAO Morfin on 05/30/2023 at 9:33 AM * Telephone Encounter - Lita Krishnamurthy - 05/30/2023 8:50 AM CDT [facility] Phone Message May a detailed message be left on voicemail: yes Reason for Call: Medication Refill Request Has the patient contacted the pharmacy for the refill? Yes Name of medication being requested: venlafaxine (EFFEXOR XR) 150 MG 24 hr capsule Provider who prescribed the medication: Flo Henry Pharmacy: [facility] [address] [place] [address] Date medication is needed: Today Pt's spouse Cordell is requesting a refill for the medication listed above due to the pt going on vacation and will run out while gone. Please review and call back to advise at # [phone]. Action Taken: Message routed to: Other: [facility] Travel Screening: Not Applicable documented in this encounter Plan of Treatment Upcoming Encounters Date Type Department Care Team (Late st Contact Info) Description 09/26/2023 11:40 AM CDT Office Visit [facility] 1390 [place] [phone] Onesimo Bruno MD [address]0 [place] [address] 11/24/2023 1:20 PM CDT Virtual Visit [facility] Neu[facility] [address] [place] [phone] Flo Henry MD [address] [phone] documented as of this encounter Goals Goal [...] continue to work with my Weight Watcher's coach operator and start attending their Webinars. 4. I will report progress towards this goal at outreach telephone calls from the [facility] team Discussed 08/12/23 documented as of this encounter Visit Diagnoses Not on filedocumented in this encounter Additional Health Concerns Active Problems Noted Date Diagnosed Date HP GENERAL PROBLEM 11/13/2021 Assessment Noted Time PHQ-9 Depression Total Score: 7 12/09/19 23 11:14 AM CDT documented as of this encounter Care Teams Cement Fittings Maker Relationship Specialty Start Date End Date Onesimo Bruno MD PCP - General 08/11/06 Bhavna Mac, GenesisD [address] [place] [address] Pharmacist Pharmacist 07/11/18 Isaac Bro, RN Lead Criminal Investigator Customs Primary Care - CC 09/01/18 Onesimo Bruno MD [address] [place] [address] Assigned PCP 07/30/20 Rafita Ayers MD [address] [place] [address] Assigned Pulmonology Provider 10/12/20 06/06/23 Flo Henry MD [address] [address] Assigned Behavioral Health Provider 09/21/20 Jana Vick, W Community Health Worker Primary Care - CC 06/08/21 Lorri Larsen MD [address] [place] [address] Otolaryngology 07/21/21 Rafita Ayers MD [address] [place] [address] Critical Care 11/30/21 Kaelyn New, [place] [facility]5 [place] [address] Envelope Folder Audiology 12/09/21 Marino Hayes MD [address] [place] [address] Cardiovascular Disease 09/28/22 Marino Hayes MD [address] [place] [address] Assigned Heart and Vascular Provider 10/09/22 06/06/23 documented as of this encounter
--- OUTSIDE RECORDS SUMMARY | 2023-09-06 13:50 | XMS_ITS | Encounter Summary ---
Author Organization [place] Address [address] [place] [address] Care Team Providers Care Plate Preparer Name Role Phone Onesimo Bruno MD Primary Care Provider Bhanva Mac PharmD Unavailable [phone] Isaac Bro RN Unavailable [phone] Onesimo Bruno MD Unavailable [phone] Rafita Ayers MD Unavailable [phone] Flo Henry MD Unavailable [phone] Jana Vick Unavailable Unavailabl Lorri Luo MD Unavailable [phone] Rafita Ayers MD Unavailable [phone] Kaelyn New Unavailable [phone] Marino Hayes MD Unavailable [phone] Marino Hayes MD Unavailable [phone] Reason for Visit * Reason Comments Medication Refill Encounter Details Date Type Department Care Team (Late st Contact Info) Description 05/27/2023 [facility] Neurology Clinic [facility] 1874 [place] [phone] Flo Henry MD [address] [phone] Medication Refill Social History Tobacco Use Types [...] Encounter - Malcolm Lima MA - 05/30/2023 9:11 AM CDT Refill request for the following medication (s) listed below. Pending Prescriptions: Disp Refills buPROPion (WELLBUTRIN SR) 100 MG 12 hr ta*30 tab*0 Sig: TAKE 1 TABLET BY MOUTH ONCE DAILY venlafaxine (EFFEXOR XR) 150 MG 24 hr cap*60 cap*0 Sig: Take 2 tablets (150 mg) by mouth daily Last office visit provider: 12/17/2023 Next appointment scheduled: none. Due for f/up Medication T'd for review and signature TAO Morfin on 05/30/2023 at 9:24 AM documented in this encounter Plan of Treatment Upcoming Encounters Date Type Department Care Team (Late st Contact Info) Description 09/26/2023 11:40 AM CDT Office Visit [address] [phone] Onesimo Bruno MD [address] [place] [address] 11/24/2023 1:20 PM CDT Virtual Visit [facility] Neurology Clinic [address] [phone] Flo Henry MD [address] [place] [address] [phone] documented as of this encounter Goals Goal [...] continue to work with my Weight Watcher's elementary instructional coach and start attending their Webinars. 4. I will report progress towards this goal at outreach telephone calls from the [facility] team Discussed 08/12/23 documented as of this encounter Visit Diagnoses Diagnosis Neurocognitive disorder Unspecified persistent mental disorders due to conditions classified elsewhere documented in this encounter Additional Health Concerns Active Problems Noted Date Diagnosed Date HP GENERAL PROBLEM 11/13/2021 Assessment Noted Time PHQ-9 Depression Total Score: 7 12/09/19 23 11:14 AM CDT documented as of this encounter Care Teams Plate Preparer Relationship Specialty Start Date End Date Onesimo Bruno MD PCP - General 08/11/06 Bhavna Mac PharmD [address] [place] [address] Pharmacist Pharmacist 07/11/18 Isaac Bro, RN Lead Power Plant Operations Manager Primary Care - CC 09/01/18 Onesimo Bruno MD [address]0 [place] [address] Assigned PCP 07/30/20 Rafita Ayers MD [address] [place] [address] Assigned Pulmonology Provider 10/12/20 06/06/23 Flo Henry MD [facility] [address] [address] Assigned Behavioral Health Provider 09/21/20 Jana Vick W Community Health Worker Primary Care - CC 06/08/21 Lorri Larsen MD 909 [place] [address] Otolaryngology 07/21/21 Rafita Ayers MD [address] [place] [address] Critical Care 11/30/21 Kaelyn New AuD [address] [place] [address] Hourly Sales Staff Audiology 12/09/21 Marino Hayes MD [address] [place] [address] Cardiovascular Disease 09/28/22 Marino Hayes MD [address] [place] [address] Assigned Heart and Vascular Provider 10/09/22 06/06/23 documented as of this encounter
--- OUTSIDE RECORDS SUMMARY | 2023-09-06 13:50 | XMS_ITS | Encounter Summary ---
Author Organization [place] Address [address] [place] [address] Care Team Providers Care Industrial Boilermaker Name Role Phone Onesimo Bruno MD Primary Care Provider [phone] Bhavna Mac PharmD Unavailable [phone] Isaac Bro RN Unavailable [phone] Onesimo Bruno MD Unavailable [phone] Nataliia Gomez MD Unavailable Rafita Ayers MD Unavailable +[phone] Flo Henry MD Unavailable [phone] Jana Vick W Unavailable Unavailabl e Lorri Larsen MD Unavailable [phone] Lorri Larsen MD Unavailable [phone] Rafita Ayers MD Unavailable +[phone] Kaelyn New Unavailable [phone] Marino Hayes MD Unavailable + [phone] Marino Hayes MD Unavailable + [phone] Nataliia Gomez MD Unavailable Encounter Details Date Type Department Care Team (Late st Contact Info) Description 09/29/2022 [facility] [address] [phone] [facility] Social History Tobacco Use Types Packs/Day [...] Description 09/26/2023 11:40 AM CDT Office Visit [facility] [address] [place] [phone] Onesimo Bruno MD [address] [place] [address] 11/24/2023 1:20 PM CDT Virtual Visit [facility] Neurology Clinic [address] [phone] Flo Henry MD [address] [place] [address] documented as of this encounter Goals Goal [...] Total Score: 8 04/16/19 23 9:42 AM SKEIN WINDER documented as of this encounter Care Teams Industrial Boilermaker Relationship Specialty Start Date End Date Onesimo Bruno MD PCP - General 08/11/06 Bhavna Mac PharmD [address] [place] [address] Pharmacist Pharmacist 07/11/18 Isaac Bro, RN Lead Baggage Agent Primary Care - CC 09/01/18 Onesimo Bruno MD [address]0 [place] [address] Assigned PCP 07/30/20 Nataliia Gomez MD [address] [facility], [address] [place] [address] Assigned Heart and Vascular Provider 08/29/20 10/08/22 Rafita Ayers MD 9 [place] [address] Assigned Pulmonology Provider 10/12/20 06/06/23 Flo Henry MD [facility] [address] [address] Assigned Behavioral Health Provider 09/21/20 Jana Vick, W Community Health Worker Primary Care - CC 06/08/21 Lorri Larsen MD [address] [place] [address] Otolaryngology 07/21/21 Lorri Larsen MD [address] [place] [address] Assigned Surgical Provider 10/10/21 04/28/23 Rafita Ayers MD [address] [place] [address] Critical Care 11/30/21 Kaelyn New, [place] [address] [place] [address] Storekeeper Helper Audiology 12/09/21 Marino Hayes MD [address] [place] [address] Cardiovascular Disease 09/28/22 Marino Hayes MD [address] [place] [address] Assigned Heart and Vascular Provider 10/09/22 06/06/23 Nataliia Gomez MD [address] [place] [address], [address] [place] [address] Assigned Heart and Vascular Provider 06/07/23 documented as of this encounter
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
--- OUTSIDE RECORDS SUMMARY | 2023-09-06 13:50 | XMS_ITS | Encounter Summary ---
Author Organization [place] Address [address] [place] [address] Care Team Providers Care Concession Stand Attendant Name Role Phone Onesimo Bruno MD Primary Care Provider [phone] Bhavna Mac PharmD Unavailable [phone] Isaac Bro RN Unavailable [phone] Onesimo Bruno MD Unavailable [phone] Rafita Ayers MD Unavailable [phone] Flo Henry MD Unavailable [phone] Jana Vick W Unavailable Unavailabl Lorri Luo MD Unavailable [phone] Rafita Ayers MD Unavailable [phone] Kaelyn New Unavailable [phone] Marino Hayes MD Unavailable [phone] Marino Hayes MD Unavailable [phone] Reason for Referral * Consultation (Routine) - Pending Review Specialty Diagnoses / Procedures Referred By Contac t Referred To Contact Cardiovascular Disease Diagnoses Coronary artery disease involving [place] coronary artery of [place] heart, unspecified whether angina present NAVAS (dyspnea on exertion) Hypercholesterolemia Nataliia Gomez MD [address] [facility], [address] [place] [address] Referral ID Status Reason Start Date Expiration Date V isits Requested Visits Authorized [id number] Pending Review 06/02/2023 06/01/2024 1 1 Question Answer Follow-up with: Self Scheduling Instructions: [facility] will call you to coordinate your care as prescribed by your provider. If you have concerns about scheduling, please call [phone]. Comments [facility] will call you to coordinate your care as prescribed by your provider. If you have concerns about scheduling, please call [phone]. Encounter Details Date Type Department Care Team (Late st Contact Info) Description 06/02/2023 Orders Only [address] [address] Lyn Fuller RN Coronary artery disease involving [place] coronary artery of [place] heart, unspecified whether angina present (Primary Dx); NAVAS (dyspnea on exertion); Hypercholesterolemia Social History Tobacco Use Types Packs/Day [...] an abandoned building, in an overnight senior living, or couch-surfing.) Yes 02/15/2023 Are you worried [...] Description 09/26/2023 11:40 AM CDT Office Visit [address] [address] Onesimo Bruno MD [address] [place] [address] 11/24/2023 1:20 PM CDT Virtual Visit [facility] Neurology [address] [phone] Flo Henry MD [address] [place] [address] Scheduled Referrals Name Type Priority Associated Diagnoses Orde r Schedule Follow-Up with Cardiology Referral Routine: Next available opening Coronary artery disease involving [place] coronary artery of [place] heart, unspecified whether angina present NAVAS (dyspnea on exertion) Hypercholesterolemia Expected: 05/15/2024 (Approximate), Expires: 06/01/2024 documented as of this encounter Goals Goal [...] to work with my Weight Watcher's head coach and start attending their Webinars. 4. I will report progress towards this goal at outreach telephone calls from the [facility] team Discussed 08/12/23 documented as of this encounter Visit Diagnoses Diagnosis Coronary artery disease involving [place] coronary artery of [place] heart, unspecified whether angina present- Primary NAVAS (dyspnea on exertion) Other dyspnea and respiratory abnormality Hypercholesterolemia Pure hypercholesterolemia documented in this encounter Additional Health Concerns Active Problems Noted Date Diagnosed Date HP GENERAL PROBLEM 11/13/2021 Assessment Noted Time PHQ-9 Depression Total Score: 7 12/09/19 23 11:14 AM CDT documented as of this encounter Care Teams Concession Stand Attendant Relationship Specialty Start Date End Date Onesimo Bruno MD PCP - General 08/11/06 Bhavna Mac, GenesisD [address] [place] [address] Pharmacist Pharmacist 07/11/18 Isaac Bro, RN Lead Clinical Data Management Director Primary Care - CC 09/01/18 Onesimo Bruno MD [address] [place] [address] Assigned PCP 07/30/20 Rafita Ayers MD [address] [place] [address] Assigned Pulmonology Provider 10/12/20 06/06/23 Flo Henry MD [address] [address] Assigned Behavioral Health Provider 09/21/20 Jana Vick, W Community Health Worker Primary Care - CC 06/08/21 Lorri Larsen MD [address] [place] [address] Otolaryngology 07/21/21 Rafita Ayers MD [address] [place] [address] Critical Care 11/30/21 Kaelyn New, [facility] [place] [address] Leno Sewer Audiology 12/09/21 Marino Hayes MD [address] [place] [address] Cardiovascular Disease 09/28/22 Marino Hayes MD [address] [place] [address] Assigned Heart and Vascular Provider 10/09/22 06/06/23 documented as of this encounter
--- OUTSIDE RECORDS SUMMARY | 2023-09-06 13:50 | XMS_ITS | Encounter Summary ---
Author Organization [facility] Address [address] [place] [address] Care Team Providers Care Judicial Registrar Name Role Phone Onesimo Bruno MD Primary Care Provider [phone] Bhavna Mac PharmD Unavailable [phone] Isaac Bro RN Unavailable [phone] Onesimo Bruno MD Unavailable [phone] Nataliia Gomez MD Unavailable Luly Grant MD Unavailable [phone] Rafita Ayers MD Unavailable [phone] Flo Henry MD Unavailable [phone] Jaan Vick CHW Unavailable Unavailabl Tor Saldana DPM Unavailable [phone] Lorri Larsen MD Unavailable [phone] Lorri Larsen MD Unavailable [phone] Rafita Ayers MD Unavailable [phone] Kaelyn New Unavailable [phone] Marino Hayes MD Unavailable [phone] Marino Hayes MD Unavailable [phone] Nataliia Gomez MD Unavailable Encounter Details Date Type Department Care Team (Late st Contact Info) Description 03/05/2022 MyC Medical Advice [facility] [address] [address] Chandler Day MD [address] [place] [address] Social History Tobacco Use Types Packs/Day Years [...] Coronavirus/COVID-19? No / Unsure 03/02/2022 12:59 AM FABRICATION MANAGER documented as of this encounter Miscellaneous Notes * Telephone Encounter - Rishabh Guerra RN - 03/08/2022 8:59 AM CST Last OV 05/06/20 Virtual return [facility] 04/15/22 ICATION MANAGER documented in this encounter Plan of Treatment Upcoming Encounters Date Type Department Care Team (Late st Contact Info) Description 09/26/2023 11:40 AM CDT Office Visit [facility] [address] [place] [address] Onesimo Bruno MD [facility] [place] [address] 11/24/2023 1:20 PM CDT Virtual Visit [facility] Neurology [address] [phone] Flo Henry MD [address] [address] documented as of this encounter Goals Goal [...] continue to work with my Weight Watcher's professional athletes coach and start attending their Webinars. 4. I will report progress towards this goal at outreach telephone calls from the [facility] team Discussed 08/12/23 documented as of this encounter Visit Diagnoses Not on filedocumented in this encounter Additional Health Concerns Active Problems Noted Date Diagnosed Date HP GENERAL PROBLEM 11/13/2021 Assessment Noted Time PHQ-9 Depression Total Score: 10 09/05/ 024 7:49 AM CDT documented as of this encounter Care Teams Judicial Registrar Relationship Specialty Start Date End Date Onesimo Bruno MD PCP - General 08/11/06 Bhavna Mac, GenesisD [address] [place] [address] Pharmacist Pharmacist 07/11/18 Isaac Bro, RN Lead Customer Development Representative Primary Care - CC 09/01/18 Onesimo Bruno MD [address] [place] [address] Assigned PCP 07/30/20 Nataliia Gomez MD [address] [facility], [address] [place] [address] Assigned Heart and Vascular Provider 08/29/20 10/08/22 Luly Grant MD [address] [place] [address] Assigned Allergy Provider 08/29/20 04/16/22 Rafita Ayers MD [address] [place] [address] Assigned Pulmonology Provider 10/12/20 06/06/23 Flo Henry MD [address] [phone] Assigned Behavioral Health Provider 09/21/20 Jana Vick W Community Health Worker Primary Care - CC 06/08/21 Tor Joseph DPM [address] [facility] [address] [place] [address] Assigned Musculoskeletal Provider 07/05/21 03/19/22 Lorri Larsen MD [address] [place] [address] Otolaryngology 07/21/21 Lorri Larsen MD [address] [place] [address] Assigned Surgical Provider 10/10/21 04/28/23 Rafita Ayers MD [address] [place] [address]2325 Critical Care 11/30/21 Kaelyn New AuD [address] [place] [address] Janitor And Cleaner Audiology 12/09/21 Marino Hayes MD [address] [place] [address] Cardiovascular Disease 09/28/22 Marino Hayes MD [address] [place] [address] Assigned Heart and Vascular Provider 10/09/22 06/06/23 Nataliia Gomez MD [address] [facility], [address] [place] [address] Assigned Heart and Vascular Provider 06/07/23 documented as of this encounter
--- OUTSIDE RECORDS SUMMARY | 2023-09-06 13:50 | XMS_ITS | Encounter Summary ---
Author Organization [facility] Address [address] [place] [address] Care Team Providers Care Sewage Plant Attendant Name Role Phone Onesimo Bruno MD Primary Care Provider [phone] Bhavna Mac PharmD Unavailable [phone] Isaac Bro RN Unavailable [phone] Onesimo Bruno MD Unavailable [phone] Flo Henry MD Unavailable Jana Vick CHW Unavailable Unavailabl e Lorri Larsen MD Unavailable Rafita Ayers MD Unavailable Kaelyn New Unavailable Marino Hayes MD Unavailable [phone] Nataliia Gomez MD Unavailable Reason for Visit * Reason Onset Date Comments [facility] Pulmonary Treatment Plan 0 06/14/2023 Encounter Details Date Type Department Care Team (Late st Contact Info) Description 06/14/2023 [facility] [address] [place] [phone] Onesimo Bruno MD [address] [address] [place], [place] [phone] [facility] Pulmonary Treatment Plan Social History Tobacco Use [...] in an abandoned building, in an overnight usp, or couch-surfing.) Yes 02/15/2023 Are you worried [...] * Telephone Encounter - Chanda Calix - 06/16/2023 1:46 PM CDT June 16, 2023 [facility] Pulmonary Treatment Plan was picked up from outbox of Dr. Bruno. sent via fax to [phone] Chanda Calix * Telephone Encounter - Chanda Calix - 06/14/2023 10:08 AM CDT June 14, 2023 [facility] Pulmonary Treatment Plan was received via fax for Dr. Bruno. Patient label was attached to paperwork and placed in provider's inbox to be signed. Chanda Calix documented in this encounter Plan of Treatment Upcoming Encounters Date Type Department Care Team (Late st Contact Info) Description 09/26/2023 11:40 AM CDT Office Visit [address] [address] Onesimo Bruno MD [address] [place] [address] 11/24/2023 1:20 PM CDT Virtual Visit [facility] Neurology [address] [phone] Flo Henry MD [address] [place] [address] documented as of this encounter Goals Goal [...] the [facility] team Discussed 08/12/23 documented as of this encounter Visit Diagnoses Not on filedocumented in this encounter Additional Health Concerns Active Problems Noted Date Diagnosed Date HP GENERAL PROBLEM 11/13/2021 Assessment Noted Time PHQ-9 Depression Total Score: 7 12/09/19 23 11:14 AM CDT documented as of this encounter Care Teams Sewage Plant Attendant Relationship Specialty Start Date End Date Onesimo Bruno MD PCP - General 08/11/06 Bhavna Mac PharmD [address] [place] [address] Pharmacist Pharmacist 07/11/18 Isaac Bro, RN Lead Records Administrator Primary Care - CC 09/01/18 Onesimo Bruno MD [address] [place] [address] Assigned PCP 07/30/20 Flo Henry MD [address] [place] [address] Assigned Behavioral Health Provider 09/21/20 Jana Vick CHW Community Health Worker Primary Care - CC 06/08/21 Lorri Larsen MD [address] [place] [address] Otolaryngology 07/21/21 Rafita Ayers MD [place] [address] Critical Care 11/30/21 Kaelyn New AuD [address] [place] [address] Fire Technology Instructor Audiology 12/09/21 Marino Hayes MD 6 [place] [address] Cardiovascular Disease 09/28/22 Nataliia Gomez MD [address] [facility], [address] [place] [address] Assigned Heart and Vascular Provider 06/07/23 documented as of this encounter
--- OUTSIDE RECORDS SUMMARY | 2023-09-06 13:50 | XMS_ITS | Encounter Summary ---
Author Organization [place] Address [address] [place] [address] Care Team Providers Care Shucker Name Role Phone Onesimo Bruno MD Primary Care Provider [phone] Bhavna Mac PharmD Unavailable +[phone] Isaac Bro RN Unavailable [phone] Onesimo Bruno MD Unavailable [phone] Rafita Ayers MD Unavailable +[phone] Flo Henry MD Unavailable +[phone] Jana Vick [facility] Unavailable Unavailabl e Lorri Larsen MD Unavailable +[phone] Lorri Larsen MD Unavailable +[phone] Rafita Ayers MD Unavailable +[phone] Kaelyn New Unavailable +[phone] Marino Hayes MD Unavailable + [phone] Marino Hayes MD Unavailable + [phone] Nataliia Gomez MD Unavailable Encounter Details Date Type Department Care Team (Late st Contact Info) Description 02/28/2023 [facility] 139[address] [place] [phone] Onesimo Bruno MD [address]0 [place] [address] Social History Tobacco Use Types Packs/Day Years [...] in an abandoned building, in an overnight half-way, or couch-surfing.) Yes 02/15/2023 Are you worried [...] 09/26/2023 11:40 AM CDT Office Visit M [facility] [address] [place] [address] Onesimo Bruno MD [address]0 [place] [address] 11/24/2023 1:20 PM CDT Virtual Visit M [facility] Neurology [facility] 1875 [place] [phone] Flo Henry MD [address] [place] [address] [phone] documented as of this encounter Goals Goal [...] continue to work with my Weight Watcher's track and field coach and start attending their Webinars. 4. I will report progress towards this goal at outreach telephone calls from the [facility] team Discussed 08/12/23 documented as of this encounter Visit Diagnoses Not on filedocumented in this encounter Additional Health Concerns Active Problems Noted Date Diagnosed Date HP GENERAL PROBLEM 11/13/2021 Assessment Noted Time PHQ-9 Depression Total Score: 7 12/09/19 23 11:14 AM CDT documented as of this encounter Care Teams Shucker Relationship Specialty Start Date End Date Onesimo Bruno MD PCP - General 08/11/06 Bhavna Mac, Elio [address]70 [place] [address] Pharmacist Pharmacist 07/11/18 Isaac Bro, RN Lead Recenterer Primary Care - CC 09/01/18 Onesimo Bruno MD [address] [place] [address] Assigned PCP 07/30/20 Rafita Ayers MD [address] [place] [address] Assigned Pulmonology Provider 10/12/20 06/06/23 Flo Henry MD [address] [place] [address] Assigned Behavioral Health Provider 09/21/20 Jana Vick, W Community Health Worker Primary Care - CC 06/08/21 Lorri Larsen MD [address] [place] [address] Otolaryngology 07/21/21 Lorri Larsen MD [address] [place] [address] Assigned Surgical Provider 10/10/21 04/28/23 Rafita Ayers MD [address] [place] [address] Critical Care 11/30/21 Kaelyn New AuD [address]25 [place] [address] Pattern Grader Supervisor Audiology 12/09/21 Marino Hayes MD [address] [place] [address] [phone] Cardiovascular Disease 09/28/22 Marino Hayes MD [address] [place] [address] 912925 Assigned Heart and Vascular Provider 10/09/22 06/06/23 Nataliia Gomez MD [address] [facility], [address] [place] [address] Assigned Heart and Vascular Provider 06/07/23 documented as of this encounter
--- OUTSIDE RECORDS SUMMARY | 2023-09-06 13:50 | XMS_ITS | Encounter Summary ---
Author Organization [place] Address [address] [place] [address] Care Team Providers Care Lead Network Engineer Name Role Phone Onesimo Bruno MD Primary Care Provider [phone] Bhavna Mac PharmD Unavailable +[phone] Isaac Bro RN Unavailable [phone] Onesimo Bruno MD Unavailable [phone] Nataliia Gomez MD Unavailable Luly Grant MD Unavailable +[phone] Rafita Ayers MD Unavailable +[phone] Flo Henry MD Unavailable [phone] Jana Vick CHW Unavailable Unavailabl Tor Saldana DPM Unavailable +[phone] Lorri Larsen MD Unavailable +[phone] Lorri Larsen MD Unavailable +[phone] Rfaita Ayers MD Unavailable +[phone] Kaelyn New Unavailable +[phone] Marino Hayes MD Unavailable + [phone] Marino Hayes MD Unavailable + [phone] Nataliia Gomez MD Unavailable Encounter Details Date Type Department Care Team (Late st Contact Info) Description 01/26/2022 MyC Medical Advice [facility] [address] [address] Mary James RN Social History [...] Coronavirus/COVID-19? 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 documented as of this encounter Plan of Treatment Upcoming Encounters Date Type Department Care Team (Late st Contact Info) Description 09/26/2023 11:40 AM CDT Office Visit [facility] [address] [place] [phone] Onesimo Bruno MD [address] [place] [address] 11/24/2023 1:20 PM CDT Virtual Visit [facility] Neurology [address] [phone] Flo Henry MD [address] [place] [address] documented as of this encounter Goals Goal [...] [facility] team Discussed 08/12/23 documented as of this encounter Visit Diagnoses Not on filedocumented in this encounter Additional Health Concerns Active Problems Noted Date Diagnosed Date HP GENERAL PROBLEM 11/13/2021 Assessment Noted Time PHQ-9 Depression Total Score: 10 024 7:49 AM CDT documented as of this encounter Care Teams Lead Network Engineer Relationship Specialty Start Date End Date Onesimo Bruno MD PCP - General 08/11/06 Bhavna Mac, PharmD [address] [place] [address] Pharmacist Pharmacist 07/11/18 Isaac Bro, RN Lead Reed Or Wind Instrument Tuner Primary Care - CC 09/01/18 Onesimo Bruno MD 1390 [place] [address] Assigned PCP 07/30/20 Nataliia Gomez MD [address] [facility], [address] [place], [place] [phone] Assigned Heart and Vascular Provider 08/29/20 10/08/22 Luly Grant MD 1655 [facility] [address] [place] [address] Assigned Allergy Provider 08/29/20 04/16/22 Rafita Ayers MD [address] [place] [address] Assigned Pulmonology Provider 10/12/20 06/06/23 Flo Henry MD [address] [address] Assigned Behavioral Health Provider 09/21/20 Jana Vick, W Community Health Worker Primary Care - CC 06/08/21 Tor Joseph DPM 2945 [facility] [address], [place] [address] Assigned Musculoskeletal Provider 07/05/21 03/19/22 Lorri Larsen MD [address] [place] [address] Otolaryngology 07/21/21 Lorri Larsen MD [address] [place] [address] Assigned Surgical Provider 10/10/21 04/28/23 Rafita Ayers MD [address] [place] [address] Critical Care 11/30/21 Kaelyn New, Shena [address] [place] [address] Concrete Engineer Audiology 12/09/21 Marino Hayes MD [address] [place] [address] Cardiovascular Disease 09/28/22 Marino Hayes MD 6 [place] [address] Assigned Heart and Vascular Provider 10/09/22 06/06/23 Nataliia Gomez MD [address] [place] [address], [address] [place] [address] Assigned Heart and Vascular Provider 06/07/23 documented as of this encounter
--- OUTSIDE RECORDS SUMMARY | 2023-09-06 13:50 | XMS_ITS | Encounter Summary ---
Author Organization [place] Address [address] [place] [address] Care Team Providers Care Front End Architect Name Role Phone Onesimo Bruno MD Primary Care Provider [phone] Bhavna Mac PharmD Unavailable +[phone] Isaac Bro RN Unavailable [phone] Onesimo Bruno MD Unavailable [phone] Rafita Ayers MD Unavailable +[phone] Flo Henry MD Unavailable [phone] Jana Vick W Unavailable Unavailabl e Lorri Larsen MD Unavailable +[phone] Lorri Larsen MD Unavailable +[phone] Rafita Ayers MD Unavailable [phone] Kaelyn New Unavailable +[phone] Marino Hayes MD Unavailable + [phone] Marino Hayes MD Unavailable + [phone] Nataliia Gomez MD Unavailable Encounter Details Date Type Department Care Team (Late st Contact Info) Description 03/02/2023 [facility]rology Clinic [place] [phone] [place] [address] Flo Henry MD [facility] [address] [address] Social History Tobacco Use Types Packs/Day Years [...] 09/26/2023 11:40 AM CDT Office Visit M [facility] 1390 [place] [address] Onesimo Bruno MD 1390 [place] [address] 11/24/2023 1:20 PM CDT Virtual Visit [facility] Neurology [facility] 18[address] [place] [address] Flo Henry MD [address] [place] [address] [phone] documented as of this encounter Goals Goal [...] continue to work with my Weight Watcher's literacy coach and start attending their Webinars. 4. I will report progress towards this goal at outreach telephone calls from the [facility] team Discussed 08/12/23 documented as of this encounter Visit Diagnoses Not on filedocumented in this encounter Additional Health Concerns Active Problems Noted Date Diagnosed Date HP GENERAL PROBLEM 11/13/2021 Assessment Noted Time PHQ-9 Depression Total Score: 7 12/09/19 23 11:14 AM CDT documented as of this encounter Care Teams Front End Architect Relationship Specialty Start Date End Date Onesimo Bruno MD PCP - General 08/11/06 Bhavna Mac, GenesisD [address]70 [place] [address] Pharmacist Pharmacist 07/11/18 Isaac Bro, RN Lead Cq Developer Primary Care - CC 09/01/18 Onesimo Bruno MD 1390 [place] [address] Assigned PCP 07/30/20 Rafita Ayers MD [address] [place] [address] Assigned Pulmonology Provider 10/12/20 06/06/23 Flo Henry MD [address] [place] [address] Assigned Behavioral Health Provider 09/21/20 Jana Vick W Community Health Worker Primary Care - CC 06/08/21 Lorri Larsen MD [address] [place] [address] Otolaryngology 07/21/21 Lorri Larsen MD [address] [place] [address] 187545 Assigned Surgical Provider 10/10/21 04/28/23 Rafita Ayers MD [address] [place] [address] Critical Care 11/30/21 Kaelyn New AuD 1825 [place] [address] Knowledge Analyst Audiology 12/09/21 Marino Hayes MD [address] [place] [address] Cardiovascular Disease 09/28/22 Marino Hayes MD [address] [place] [address] Assigned Heart and Vascular Provider 10/09/22 06/06/23 Nataliia Gomez MD 1600 [facility], [address] [place] [address] Assigned Heart and Vascular Provider 06/07/23 documented as of this encounter
--- OUTSIDE RECORDS SUMMARY | 2023-09-06 13:51 | XMS_ITS | Encounter Summary ---
Author Organization [place] Address [address] [place] [address] Care Team Providers Care V Belt Curer Name Role Phone Onesimo Bruno MD Primary Care Provider [phone] Bhavna Mac PharmD Unavailable [phone] Isaac Bro RN Unavailable [phone] Onesimo Bruno MD Unavailable [phone] Nataliia Gomez MD Unavailable Luly Grant MD Unavailable +[phone] Rafita Ayers MD Unavailable +[phone] Flo Henry MD Unavailable [phone] Jana Vikc CHW Unavailable Unavailabl Tor Saldana DPM Unavailable +[phone] Lorri Larsen MD Unavailable [phone] Lorri Larsen MD Unavailable +[phone] Rafita Ayers MD Unavailable +[phone] Kaelyn New Unavailable +[phone] Marino Hayes MD Unavailable +[phone] Marino Hayes MD Unavailable + [phone] Nataliia Gomez MD Unavailable Reason for Visit * Reason Comments Medication Refill Encounter Details Date Type Department Care Team (Late st Contact Info) Description 01/22/2022 Refill M [facility] Heart Clinic [place] 1600 [facility] [address] [place] [address] Nataliia Gomez MD 1600 [facility], [address] [place] [address] Medication Refill Social History Tobacco Use Types [...] Coronavirus/COVID-19? 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 MANAGER INVESTMENT documented as of this encounter Plan of Treatment Upcoming Encounters Date Type Department Care Team (Late Contact Info) Description 09/26/2023 11:40 AM CDT Office Visit [facility] [address] [place] [address] Onesimo Bruno MD [address] [place] [address] 11/24/2023 1:20 PM CDT Virtual Visit [facility] Neurology Clinic [place] [address] [place] [phone] Flo Henry MD [address] [place] [address] [phone] documented as of this encounter Goals Goal [...] documented as of this encounter Care Teams V Belt Curer Relationship Specialty Start Date End Date Onesimo Bruno MD PCP - General 08/11/06 Bhavna Mac PharmD 870 [place] [address] Pharmacist Pharmacist 07/11/18 Isaac Bro, RN Lead Die Designer Primary Care - CC 09/01/18 Onesimo Bruno MD [address]0 [place] [address] Assigned PCP 07/30/20 Nataliia Gomez MD 1600 [facility], [address] [place] [address] Assigned Heart and Vascular Provider 08/29/20 10/08/22 [place] [address] [place] [address] [address] [place] [address] Assigned Allergy Provider 08/29/20 04/16/22 Rafita Ayers MD [address] [place] [address] Assigned Pulmonology Provider 10/12/20 06/06/23 Flo Henry MD [address] [address] Assigned Behavioral Health Provider 09/21/20 Jana Vick, W Community Health Worker Primary Care - CC 06/08/21 Tor Joseph DPM 2945 [facility] [address] [place] [address] Assigned Musculoskeletal Provider 07/05/21 03/19/22 Lorri Larsen MD [address] [place] [address] Otolaryngology 07/21/21 Lorri Larsen MD [address] [place] [address] Assigned Surgical Provider 10/10/21 04/28/23 Rafita Ayers MD [address] [place] [address] Critical Care 11/30/21 Kaelyn New AuD 1825 [place] [address] Sausage Smoker Audiology 12/09/21 Marino Hayes MD [address] [place] [address] Cardiovascular Disease 09/28/22 Marino Hayes MD [address] [place] [address] Assigned Heart and Vascular Provider 10/09/22 06/06/23 Nataliia Gomez MD [address] [place] [address], [address] [place] [address] Assigned Heart and Vascular Provider 06/07/23 documented as of this encounter
--- OUTSIDE RECORDS SUMMARY | 2023-09-06 13:51 | XMS_ITS | Encounter Summary ---
Author Organization [facility] Address [address] [place] [address] Care Team Providers Care Sparker And Patcher Name Role Phone Onesimo Bruno MD Primary Care Provider [phone] Bhavna Mac PharmD Unavailable +[phone] Isaac Bro RN Unavailable [phone] Ilda Tapia CHW Unavailable +[phone] Onesimo Bruno MD Unavailable [phone] Manuel Calderon MD, Jon Unavailable +[phone] Nataliia Gomez MD Unavailable Luly Grant MD Unavailable +[phone] Rafita Ayers MD Unavailable +[phone] Flo Henry MD Unavailable +[phone] Susan Robert CHW Unavailable Unavailable Jana Vick CHW Unavailable UnavailTor Brown DPM Unavailable +[phone] Lorri Larsen MD Unavailable +[phone] Lorri Larsen MD Unavailable +[phone] Rafita Ayers MD Unavailable +[phone] Kaelyn New Unavailable +[phone] Marino Hayes MD Unavailable + [phone] Marino Hayes MD Unavailable [phone] Nataliia Gomez MD Unavailable Reason for Visit * Reason Comments Other Inpatient Follow Up; [facility] 08/11;08/13; Atypical Pneumonia x 3 weeks Encounter Details Date Type Department Care Team (Late st Contact Info) Description 08/19/2020 Office Visit - [facility] 139[address] [place] [phone] Onesimo Bruno MD [address] [place] [address] Atypical pneumonia; NAVAS (dyspnea on exertion); Wheezing; [...] 2:42 PM Encounter Date: 08/19/2020 Status: Signed Sales And Merchandising Associate: Onesimo Bruno MD (Physician) Office Visit - Follow Up Roger Luong Dr. 69 y.o. male Date of Visit: 08/19/2020 Chief Complaint Patient presents with ? Inpatient Follow Up 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 Apparently he was in the emergency room at [employer] on several occasions with cough and shortness of breath. He was told he had an atypical pneumonia and sent out on prednisone and Z-Rober. He was also given prednisone by his technical inspector Dr. Grant here recently. He continues to [...] MOUTH DAILY 90 tablet 2 ? nebulizers [place] Please dispense one machine and associated necessary [...] 11:40 AM CDT Office Visit [facility] [address] [place] [phone] Onesimo Bruno MD [address] [place] [address] 11/24/2023 1:20 PM CDT Virtual Visit [facility] Neurology [address] [phone] Flo Henry MD [address] [place] [address] [phone] documented as of this encounter Procedures Procedure [...] - 11.0 thou/uL 08/19/2020 3:07 PM CDT [facility] RBC Count 4.45 4.40 - 6.20 mill/uL 08/19/2020 3:07 PM CDT [facility] Hemoglobin 13.8(L) 14.0 - 18.0 g/dL 08/19/2020 3:07 PM CDT [facility] Hematocrit 42.4 40.0 - 54.0 % 08/19/2020 3:07 PM CDT [facility] MCV 95 80 - 100 fL 08/19/2020 3:07 PM CDT [facility] MCH 31.0 27.0 - 34.0 pg 08/19/2020 3:07 PM CDT [facility] MCHC 32.5 32.0 - 36.0 g/dL 08/19/2020 3:07 PM CDT [facility] RDW 14.0 11.0 - 14.5 % 08/19/2020 3:07 PM CDT [facility] Platelet Count 156 140 - 440 thou/uL 08/19/2020 3:07 PM CDT [facility] Mean Platelet Volume 9.4 7.0 - 10.0 fL 08/19/2020 3:07 PM CDT [facility] % Neutrophils 66 50 - 70 % 08/19/2020 3:07 PM CDT [facility] % Lymphocytes 26 20 - 40 % 08/19/2020 3:07 PM CDT [facility] % Monocytes 7 2 - 10 % 08/19/2020 3:07 PM CDT [facility] % Eosinophils 0 0 - 6 % 08/19/2020 3:07 PM CDT [facility] % Basophils 0 0 - 2 % 08/19/2020 3:07 PM CDT [facility] % Immature Granulocytes 0 <=0 % 08/19/2020 3:07 PM CDT [facility] Absolute Neutrophils 5.4 2.0 - 7.7 thou/uL 08/19/2020 3:07 PM CDT [facility] Absolute Lymphocytes 2.2 0.8 - 4.4 thou/uL 08/19/2020 3:07 PM CDT [facility] Absolute Monocytes 0.6 0.0 - 0.9 thou/uL 08/19/2020 3:07 PM CDT [facility] Eosinophils Absolute 0.0 0.0 - 0.4 thou/uL 08/19/2020 3:07 PM CDT [facility] Absolute Basophils 0.0 0.0 - 0.2 thou/uL 08/19/2020 3:07 PM CDT [facility] Absolute Immature Granulocytes 0.0 <=0.0 thou/uL 08/19/2020 3:07 PM CDT [facility] Blood specimen (specimen) Venipuncture / Unknown 08/19/2020 2:58 PM CDT 08/19/2020 2:58 PM CDT Onesimo Bruno MD LAB - BLOOD ORDERABL ES [facility] [address] [address], [facility] [address] [place] [address] * (ABNORMAL) Valproic acid (08/19/2020 2:58 PM CDT) [facility] Valproic acid 16.0(L) 50.0 - 150.0 ug/mL 08/19/2020 6:21 PM CDT [facility] Comment: Recommended therapeutic trough conc range when used for manic episodes associated with bipolar disorder: 50-125 ug/ml. Blood specimen (specimen) Venipuncture / Unknown 08/19/2020 2:58 PM CDT 08/19/2020 5:30 PM CDT Onesimo Bruno MD LAB - BLOOD ORDERABL ES Performing Organization Address [facility]/ZIP Co de Phone Number [facility] [address] [place] [phone] [place] [address] [facility] [address] [place] [address] * (ABNORMAL) Hepatic function panel (08/19/2020 2:58 PM CDT) Bilirubin Total 0.4 0.0 - 1.0 mg/dL 08/19/2020 6:09 PM CDT [facility] Bilirubin Direct 0.1 <=0.5 mg/dL 08/19/2020 6:09 PM CDT [facility] Protein Total 5.9(L) 6.0 - 8.0 g/dL 08/19/2020 6:09 PM CDT [facility] Albumin 3.2(L) 3.5 - 5.0 g/dL 08/19/2020 6:09 PM CDT [facility] Alkaline Phosphatase 50 45 - 120 U/L 08/19/2020 6:09 PM CDT [facility] AST 19 0 - 40 U/L 08/19/2020 6:09 PM CDT [facility] ALT 15 0 - 45 U/L 08/19/2020 6:09 PM CDT [facility] Blood specimen (specimen) Venipuncture / Unknown 08/19/2020 2:58 PM CDT 08/19/2020 5:30 PM CDT Onesimo Bruno MD LAB - BLOOD ORDERABL ES [facility] [address] [address], [facility] [phone] [facility] [address] [address] * EKG 12-lead, tracing only (08/19/2020) Systolic Blood Pressure 08/20/2020 1:31 PM CDT [facility] CONVERSION Diastolic Blood Pressure 08/20/2020 1:31 PM CDT [facility] CARDIOLOGY CONVERSION Ventricular Rate 97 BPM 08/21/19 1:31 PM CDT [facility] CARDIOLOGY CONVERSION Atrial Rate 97 BPM 08/20/2020 1:31 PM CDT [facility] CARDIOLOGY CONVERSION HI Interval 154 ms 08/20/2020 1:31 PM CDT [facility] CARDIOLOGY CONVERSION QRS Duration 86 ms 08/20/2020 1:31 PM CDT [facility] CARDIOLOGY CONVERSION QT 336 ms 08/20/2020 1:31 PM CDT [facility] CARDIOLOGY CONVERSION QTc 426 ms 08/20/2020 1:31 PM CDT [facility] CARDIOLOGY CONVERSION P [place] 22 degrees 08/20/2020 1:31 PM CDT [facility] CARDIOLOGY CONVERSION R AXIS 54 degrees 08/20/2020 1:31 PM CDT [facility] CARDIOLOGY CONVERSION T [place] 52 degrees 08/20/2020 1:31 PM CDT [facility] CARDIOLOGY CONVERSION Interpretation ECG Sinus rhythm Normal ECG When compared with ECG of 28-JAN-2019 18:10, No significant change was found Confirmed by FAINA ??MATTIE SALGUERO LOC:[id number]) on 08/20/2020 1:31:56 PM 08/20/2020 1:31 PM [...] Depression Total Score: 14 022 10: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 documented as of this encounter Care Teams Sparker And Patcher Relationship Specialty Start Date End Date Onesimo Bruno MD PCP - General 08/11/06 Bhavna Mac, GenesisD [address] [place] [address] Pharmacist Pharmacist 07/11/18 Isaac Bro, RN Lead Fish Hatchery Specialist Primary Care - CC 09/01/18 Ilda Tapia W Community Health Worker Primary Care - CC 09/01/1804/22 Onesimo Bruno MD [address] [place] [address] Assigned PCP 07/30/20 Florentino Jackson MD [facility] [address] [facility] [address] [place] [address] Assigned Surgical Provider 08/29/20 09/27/20 Nataliia Gomez MD [address] [facility], [address] [place] [address] Assigned Heart and Vascular Provider 08/29/20 10/08/22 Luly Grant MD [address] [facility] [address] [place], [place] [phone] Assigned Allergy Provider 08/29/20 04/16/22 Rafita Ayers MD 909 [place] [address] Assigned Pulmonology Provider 10/12/20 06/06/23 Flo Henry MD [address] [address] Assigned Behavioral Health Provider 09/21/20 Susan Robert, ELISA Community Health Worker Primary Care - CC 04/23/2106/15/21 Jana Vick, W Community Health Worker Primary Care - CC 06/08/21 Tor Joseph DPM [facility] [address] [place] [address] Assigned Musculoskeletal Provider 07/05/21 03/19/22 Lorri Larsen MD [address] [place] [address] Otolaryngology 07/21/21 Lorri Larsen MD [address] [place] [address] Assigned Surgical Provider 10/10/21 04/28/23 Rafita Ayers MD [address] [place] [address] Critical Care 11/30/21 Kaelyn New, Shena [address] [place] [address] Director Business Management Audiology 12/09/21 Marino Hayes MD [address] [place] [address] Cardiovascular Disease 09/28/22 Marino Hayes MD [address] [place] [address] Assigned Heart and Vascular Provider 10/09/22 06/06/23 Nataliia Gomez MD [address] [facility], [address] [place] [address] Assigned Heart and Vascular Provider 06/07/23 documented as of this encounter
--- OUTSIDE RECORDS SUMMARY | 2023-09-06 13:51 | XMS_ITS | Encounter Summary ---
Author Organization [facility] Address [address] [place] [address] Care Team Providers Care Trucker Hand Name Role Phone Onesimo Bruno MD Primary Care Provider +[phone] Bhavna Mac PharmD Unavailable +[phone] Isaac Bro RN Unavailable +[phone] Ilda Tapia CHW Unavailable +[phone] Onesimo Bruno MD Unavailable +[phone] Nataliia Gomez MD Unavailable Luly Grant MD Unavailable +[phone] Rafita Ayers MD Unavailable +[phone] Flo Henry MD Unavailable +[phone] Susan Robert CHW Unavailable Unavailable Jana Vick CHW Unavailable UnavailTor Brown DPM Unavailable +[phone] Lorri Larsen MD Unavailable +[phone] Lorri Larsen MD Unavailable +[phone] Rafita Ayers MD Unavailable +[phone] Kaelyn New Unavailable +[phone] Marino Hayes MD Unavailable + [phone] Marino Hayes MD Unavailable + [phone] Nataliia Gomez MD Unavailable Encounter Details Date Type Department Care Team (Late st Contact Info) Description 10/14/2020 MyC Medical Advice [facility] 29[address] [facility] [address] [place] [phone] Luly Grant MD 1655 [facility] 111 [place], [place] [phone] Social History Tobacco Use Types Packs/Day Years [...] Description 09/26/2023 11:40 AM CDT Office Visit [facility] 1390 [place] [phone] Onesimo Bruno MD 1390 [place] [address] 11/24/2023 1:20 PM CDT Virtual Visit [facility] [place]rology [facility] [address] [place] [phone] Flo Henry MD [address] [phone] documented as of this encounter Visit Diagnoses Not on filedocumented in this encounter Additional Health Concerns Assessment Noted Time PHQ-9 Depression Total Score: 14 022 10:49 AM REGISTERED 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 documented as of this encounter Care Teams Trucker Hand Relationship Specialty Start Date End Date Onesimo Bruno MD PCP - General 08/11/06 Bhavna Mac, GenesisD 870 [place] [address] Pharmacist Pharmacist 07/11/18 Isaac Bro, RN Lead Fire Control Technician B Primary Care - CC 09/01/18 Ilda Tapia CHW Community Health Worker Primary Care - CC 09/01/1804/22 Onesimo Bruno MD [facility]0 [place] [address] Assigned PCP 07/30/20 Nataliia Gomez MD 1600 [facility], [address] [place], [place] [address] Assigned Heart and Vascular Provider 08/29/20 10/08/22 Luly Grant MD 1655 [facility] [address] [place], [place] [phone] Assigned Allergy Provider 08/29/20 04/16/22 Rafita Ayers MD 909 [place] [address] Assigned Pulmonology Provider 10/12/20 06/06/23 Flo Henry MD 1875 [facility] [address] [place], [place] [phone] Assigned Behavioral Health Provider 09/21/20 Susan Robert, W Community Health Worker Primary Care - CC 04/23/2106/15/21 Jana Vick, W Community Health Worker Primary Care - CC 06/08/21 Tor Joseph DPM 2945 [facility] [address] [place] [address] Assigned Musculoskeletal Provider 07/05/21 03/19/22 Lorri Larsen MD [address] [place] [address] 461625 Otolaryngology 07/21/21 Lorri Larsen MD [address] [place] [address] 11685 Assigned Surgical Provider 10/10/21 04/28/23 Rafita Ayers MD [address] [place] [address] 21235 Critical Care 11/30/21 Kaelyn New AuD [address] [place] [address] Design Editor Audiology 12/09/21 Marino Hayes MD [address] [place] [address] Cardiovascular Disease 09/28/22 Marino Hayes MD [address] [place] [address] Assigned Heart and Vascular Provider 10/09/22 06/06/23 Nataliia Gomez MD 1600 [facility], [address] [place] [address] Assigned Heart and Vascular Provider 06/07/23 documented as of this encounter
--- OUTSIDE RECORDS SUMMARY | 2023-09-06 13:51 | XMS_ITS | Encounter Summary ---
Author Organization [facility] Address [address] [place] [address] Care Team Providers Care Mobile Sales Technician Name Role Phone Onesimo Bruno MD Primary Care Provider +[phone] Bhavna Mac PharmD Unavailable +[phone] Isaac Bro RN Unavailable [phone] Onesimo Bruno MD Unavailable +[phone] Nataliia Gomez MD Unavailable Luly Grant MD Unavailable +[phone] Rafita Ayers MD Unavailable +[phone] Flo Henry MD Unavailable +[phone] Jana Vick CHW Unavailable Unavailabl Tor Saldana DPM Unavailable +[phone] Lorri Larsen MD Unavailable +[phone] Lorri Larsen MD Unavailable +[phone] Rafita Ayers MD Unavailable +[phone] Kaelyn New Unavailable +[phone] Marino Hayes MD Unavailable + [phone] Marino Hayes MD Unavailable + [phone] Nataliia Gomez MD Unavailable Encounter Details Date Type Department Care Team (Late st Contact Info) Description 09/10/2021 MyC Medical Advice [facility] Care Coordination 2450 [place] [address] Jana Vick, W Social History Tobacco Use [...] Upcoming Encounters Date Type Department Care Team ([facility] Contact Info) Description 09/26/2023 11:40 AM CDT Office Visit [facility] [address] [place] [phone] Onesimo Bruno MD [address] [place] [address] 11/24/2023 1:20 PM CDT Virtual Visit [facility] Neurology Clinic [address] [phone] Flo Henry MD [address] [place] [address] documented as of this encounter Visit Diagnoses Not on filedocumented in this encounter Additional Health Concerns Assessment Noted Time PHQ-9 Depression Total Score: 10 024 7:49 AM CDT documented as of this encounter Care Teams Mobile Sales Technician Relationship Specialty Start Date End Date Onesimo Bruno MD PCP - General 08/11/06 Bhavna Mac, GenesisD 870 [place] [address] Pharmacist Pharmacist 07/11/18 Isaac Bro, RN Lead Rn Transplant Primary Care - CC 09/01/18 Onesimo Bruno MD 1390 [place] [address] Assigned PCP 07/30/20 Nataliia Gomez MD 1600 [facility], [address] [place] [address] Assigned Heart and Vascular Provider 08/29/20 10/08/22 [place] [address] [place] [address] [address] [place] [address] Assigned Allergy Provider 08/29/20 04/16/22 Rafita Ayers MD 909 [place] [address] Assigned Pulmonology Provider 10/12/20 06/06/23 Flo Henry MD 1875 [facility] 250 [place] [address] Assigned Behavioral Health Provider 09/21/20 Jana Vick CHW Community Health Worker Primary Care - CC 06/08/21 Tor Joseph DPM 2945 [facility] [address] [place] [address] Assigned Musculoskeletal Provider 07/05/21 03/19/22 Lorri Larsen MD [address] [place] [address] Otolaryngology 07/21/21 Lorri Larsen MD [address] [place] [address] Assigned Surgical Provider 10/10/21 04/28/23 Rafita Ayers MD [address] [place] [address] Critical Care 11/30/21 Kaelyn New AuD [address] [place] [address] Military Technician Audiology 12/09/21 Marino Hayes MD [address] [place] [address] Cardiovascular Disease 09/28/22 Marino Hayes MD [address] [place] [address] Assigned Heart and Vascular Provider 10/09/22 06/06/23 Nataliia Gomez MD [address] [place] [address], [address] [place] [address] Assigned Heart and Vascular Provider 06/07/23 documented as of this encounter
--- OUTSIDE RECORDS SUMMARY | 2023-09-06 13:51 | XMS_ITS | Encounter Summary ---
Author Organization [facility] Address [address] [place] [address] Care Team Providers Care Sandwich Wrapper Name Role Phone Onesimo Bruno MD Primary Care Provider +[phone] Bhavna Mac PharmD Unavailable +[phone] Isaac Bro RN Unavailable [phone] Onesimo Bruno MD Unavailable +[phone] Nataliia Gomez MD Unavailable Luly Grant MD Unavailable +[phone] Rafita Ayers MD Unavailable +[phone] Flo Henry MD Unavailable +[phone] Jana Vick CHW Unavailable Unavailabl Tor Saldana DPM Unavailable +[phone] Lorri Larsen MD Unavailable +[phone] Lorri Larsen MD Unavailable +[phone] Rafita Ayers MD Unavailable +[phone] Kaelyn New Unavailable +[phone] Marino Hayes MD Unavailable + [phone] Marino Hayes MD Unavailable + [phone] Nataliia Gomez MD Unavailable Encounter Details Date Type Department Care Team (Late st Contact Info) Description 12/01/2021 MyC Medical Advice [address] [phone] Brigette Guerrero MA Social History Tobacco Use [...] Upcoming Encounters Date Type Department Care Team ([facility] Contact Info) Description 09/26/2023 11:40 AM CDT Office Visit [address] [phone] Onesimo Bruno MD [address] [place] [address] 11/24/2023 1:20 PM CDT Virtual Visit [facility] Neurology Clinic [address] [phone] Flo Henry MD [address] [place] [phone] documented as of this encounter Goals Goal [...] to work with my Weight Watcher's assistant field hockey coach and start attending their Webinars. 4. I will report progress towards this goal at outreach telephone calls from the [facility] team Discussed 08/12/23 documented as of this encounter Visit Diagnoses Not on filedocumented in this encounter Additional Health Concerns Active Problems Noted Date Diagnosed Date HP GENERAL PROBLEM 11/13/2021 Assessment Noted Time PHQ-9 Depression Total Score: 10 024 7:49 AM CDT documented as of this encounter Care Teams Sandwich Wrapper Relationship Specialty Start Date End Date Onesimo Bruno MD PCP - General 08/11/06 Bhavna Mac, PharmD 870 [place] [address] Pharmacist Pharmacist 07/11/18 Isaac Bro, RN Lead Customer Order Clerk Primary Care - CC 09/01/18 Onesimo Brnuo MD 1390 [place] [address] Assigned PCP 07/30/20 Nataliia Gomez MD 1600 [facility], [address] [place] [employer], [place] [address] Assigned Heart and Vascular Provider 08/29/20 10/08/22 Luly Grant MD 1655 [facility] [address] [place] [address] Assigned Allergy Provider 08/29/20 04/16/22 Rafita Ayers MD [address] [place] [address] Assigned Pulmonology Provider 10/12/20 06/06/23 Flo Henry MD [address] [address] Assigned Behavioral Health Provider 09/21/20 Jana Vick, W Community Health Worker Primary Care - CC 06/08/21 Tor Joseph DPM [facility]5 [facility] 200[place], [place] [address] Assigned Musculoskeletal Provider 07/05/21 03/19/22 Lorri Larsen MD [address] [place] [address] Otolaryngology 07/21/21 Lorri Larsen MD [address] [place] [address] Assigned Surgical Provider 10/10/21 04/28/23 Rafita Ayers MD [address] [place] [address] Critical Care 11/30/21 Kaelyn New AuD [facility] [place] [address] Keyboarding Clerk Audiology 12/09/21 Marino Hayes MD [address] [place] [address] Cardiovascular Disease 09/28/22 Marino Hayes MD [address] [place] [address] Assigned Heart and Vascular Provider 10/09/22 06/06/23 Nataliia Gomez MD [address] [place] [address], [address] [place] [address] Assigned Heart and Vascular Provider 06/07/23 documented as of this encounter
--- OUTSIDE RECORDS SUMMARY | 2023-09-06 13:51 | XMS_ITS | Encounter Summary ---
Author Organization [place] Address [address] [place] [address] Care Team Providers Care Production Hand Name Role Phone Onesimo Bruno MD Primary Care Provider +[phone] Bhavna Mac PharmD Unavailable +[phone] Isaac Bro RN Unavailable +[phone] Onesimo Bruno MD Unavailable +[phone] Nataliia Gomez MD Unavailable Luly Grant MD Unavailable +[phone] Rafita Ayers MD Unavailable +[phone] Flo Henry MD Unavailable +[phone] Susan Robert CHW Unavailable Unavailable Jana Vick CHW Unavailable [facility] Tor Saldana DPM Unavailable +[phone] Lorri Larsen MD Unavailable +[phone] Lorri Larsen MD Unavailable +[phone] Rafita Ayers MD Unavailable +[phone] Kaelyn New Unavailable +[phone] Marino Hayes MD Unavailable + [phone] Marino Hayes MD Unavailable + [phone] Nataliia Gomez MD Unavailable Reason for Visit * Reason Comments Medication Refill Encounter Details Date Type Department Care Team (Late st Contact Info) Description 05/26/[address] [facility] Care Coordination [address] [place] [address] Onesimo Bruno MD [address] [place] [address] Medication Refill Social History Tobacco Use Types [...] 11:40 AM CDT Office Visit [facility] [address] [place] [phone] Onesimo Bruno MD [address] [place] [address] 11/24/2023 1:20 PM CDT Virtual Visit 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 documented as of this encounter Care Teams Production Hand Relationship Specialty Start Date End Date Onesimo Bruno MD PCP - General 08/11/06 Bhavna Mac, GenesisD 870 [place] [address] Pharmacist Pharmacist 07/11/18 Isaac Bro, RN Lead Mixing Roll Operator Primary Care - CC 09/01/18 Oneismo Bruno MD 1390 [place] [address] Assigned PCP 07/30/20 Nataliia Gomez MD [address] [place] [address], [address] [place] [address] Assigned Heart and Vascular Provider 08/29/20 10/08/22 [place] [address] [place] [address] [address] [place], [place] [phone] Assigned Allergy Provider 08/29/20 04/16/22 Rafita Ayers MD 909 [place] [address] Assigned Pulmonology Provider 10/12/20 06/06/23 Flo Henry MD [address] [phone] Assigned Behavioral Health Provider 09/21/20 Susan Robert, ELISA Community Health Worker Primary Care - CC 04/23/2106/15/21 Jana Vick CHW Community Health Worker Primary Care - CC 06/08/21 Tor Joseph DPM [facility] [address] [place] [address] Assigned Musculoskeletal Provider 07/05/21 03/19/22 Lorri Larsen MD [address] [place] [address] Otolaryngology 07/21/21 Lorri Larsen MD [address] [place] [address] Assigned Surgical Provider 10/10/21 04/28/23 Rafita Ayers MD [address] [place] [address] Critical Care 11/30/21 Kaelyn New, [place] [address] [place] [address] Maple Syrup Maker Audiology 12/09/21 Marino Hayes MD [address] [place] [address] Cardiovascular Disease 09/28/22 Marino Hayes MD [address] [place] [address] Assigned Heart and Vascular Provider 10/09/22 06/06/23 Nataliia Gomez MD [address] [place] [address], [address] [place] [address] Assigned Heart and Vascular Provider 06/07/23 documented as of this encounter
--- OUTSIDE RECORDS SUMMARY | 2023-09-06 13:51 | XMS_ITS | Encounter Summary ---
Author Organization [facility] Address [address] [place] [address] Care Team Providers Care Wire Winder Name Role Phone Onesimo Bruno MD Primary Care Provider +[phone] Bhavna Mac PharmD Unavailable +[phone] Isaac Bro RN Unavailable Onesimo Bruno MD Unavailable +[phone] Nataliia Gomez MD Unavailable Luly Grant MD Unavailable +[phone] Rafita Ayers MD Unavailable +[phone] Flo Henry MD Unavailable +[phone] Jana Vick CHW Unavailable Unavailabl Tor Saldana DPM Unavailable +[phone] Lorri Larsen MD Unavailable +[phone] Lorri Larsen MD Unavailable +[phone] Rafita Ayers MD Unavailable +[phone] Kaelyn New Unavailable +[phone] Marino Hayes MD Unavailable + [phone] Marino Hayes MD Unavailable + [phone] Nataliia Gomez MD Unavailable Encounter Details Date Type Department Care Team (Late st Contact Info) Description 01/15/[address] [facility] [address] [place] [phone] Joy Zuniga Social History Tobacco Use Types [...] Coronavirus/COVID-19? 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 VENEER DRIER documented as of this encounter Plan of Treatment Upcoming Encounters Date Type Department Care Team (Late st Contact Info) Description 09/26/2023 11:40 AM CDT Office Visit [facility] [address] [place] [phone] Onesimo Bruno MD [address] [place] [address] 11/24/2023 1:20 PM CDT Virtual Visit 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 4. I will report progress towards this goal at outreach telephone calls from the [facility] team Discussed 08/12/23 documented as of this encounter Visit Diagnoses Not on filedocumented in this encounter Additional Health Concerns Active Problems Noted Date Diagnosed Date HP GENERAL PROBLEM 11/13/2021 Assessment Noted Time PHQ-9 Depression Total Score: 10 024 7:49 AM CDT documented as of this encounter Care Teams Wire Winder Relationship Specialty Start Date End Date Onesimo Bruno MD PCP - General 08/11/06 Bhavna Mac, PharmD 870 [place] [address] Pharmacist Pharmacist 07/11/18 Isaac Bro, RN Lead Global Vp Creative + Content Marketing Primary Care - CC 09/01/18 Onesimo Bruno MD 1390 [place] [address] Assigned PCP 07/30/20 Nataliia Gomez MD [address] [facility], [address] [place] [address] Assigned Heart and Vascular Provider 08/29/20 10/08/22 Luly Grant MD 1655 [facility] [address] [place] [address] Assigned Allergy Provider 08/29/20 04/16/22 Rafita Ayers MD [address] [place] [address] Assigned Pulmonology Provider 10/12/20 06/06/23 Flo Henry MD [address] [address] Assigned Behavioral Health Provider 09/21/20 Jana Vick, W Community Health Worker Primary Care - CC 06/08/21 Tor Joseph DPM [facility] 200[place] [address] Assigned Musculoskeletal Provider 07/05/21 03/19/22 Lorri Larsen MD [address] [place] [address] Otolaryngology 07/21/21 Lorri Larsen MD [address] [place] [address] Assigned Surgical Provider 10/10/21 04/28/23 Rafita Ayers MD [address] [place] [address] Critical Care 11/30/21 Kaelyn New, [place] [facility]5 [place] [address] Survey Instrument Operator Audiology 12/09/21 Marino Hayes MD [address] [place] [address] Cardiovascular Disease 09/28/22 Marino Hayes MD [address] [place] [address] Assigned Heart and Vascular Provider 10/09/22 06/06/23 Nataliia Gomez MD [address] [place] [address], [address] [place] [address] Assigned Heart and Vascular Provider 06/07/23 documented as of this encounter
--- OUTSIDE RECORDS SUMMARY | 2023-09-06 13:51 | XMS_ITS | Encounter Summary ---
Author Organization [facility] Address [address] [place] [address] Care Team Providers Care Gift Shop Clerk Name Role Phone Onesimo Bruno MD Primary Care Provider +[phone] Bhavna Mac PharmD Unavailable +[phone] Isaac Bro RN Unavailable [phone] Ilda Tapia CHW Unavailable +[phone] Onesimo Bruno MD Unavailable Nataliia Gomez MD Unavailable Luly Grant MD Unavailable +[phone] Rafita Ayers MD Unavailable +[phone] Flo Henry MD Unavailable +[phone] Susan Robert CHW Unavailable Unavailable Jana Vick CHW Unavailable UnavailTor Brown DPM Unavailable +[phone] Lorri Larsen MD Unavailable +[phone] Lorri Larsen MD Unavailable +[phone] Rafita Ayers MD Unavailable +[phone] Kaelyn New Unavailable [phone] Marino Hayes MD Unavailable + [phone] Marino Hayes MD Unavailable + [phone] Nataliia Gomez MD Unavailable Encounter Details Date Type Department Care Team (Late st Contact Info) Description 01/24/2021 MyC Medical Advice [facility] 2945 [facility] 200 [place] [phone] Luly Grant MD 1655 [facility] 111 [place], [place] [phone] Social History Tobacco Use Types Packs/Day Years [...] 11:40 AM CDT Office Visit [facility] [address] [place] [phone] Onesimo Bruno MD 1390 [place] [address] 11/24/2023 1:20 PM CDT Virtual Visit [facility] Neurology [address] [phone] Flo Henry MD [address] [place] [address] [phone] documented as of this encounter Visit Diagnoses Not on filedocumented in this encounter Additional Health Concerns Assessment Noted Time PHQ-9 Depression Total Score: 7 11/05/19 21 4:49 PM CDT documented as of this encounter Care Teams Gift Shop Clerk Relationship Specialty Start Date End Date Onesimo Bruno MD PCP - General 08/11/06 Bhavna Mac, Elio 870 [place] [address] Pharmacist Pharmacist 07/11/18 Isaac Bro, RN Lead Spring Salvage Worker Primary Care - CC 09/01/18 Ilda Tapia W Community Health Worker Primary Care - CC 09/01/1804/22 Onesimo Bruno MD 1390 [place] [address] Assigned PCP 07/30/20 Nataliia Gomez MD [address] [place] [address], [address] [place] [address] Assigned Heart and Vascular Provider 08/29/20 10/08/22 [place] [address] [place] [address] [address] [place] [address] Assigned Allergy Provider 08/29/20 04/16/22 Rafita Ayers MD 9 [place] [address] Assigned Pulmonology Provider 10/12/20 06/06/23 Flo Henry MD [facility] [address] [address] Assigned Behavioral Health Provider 09/21/20 Susan Robert CHW Community Health Worker Primary Care - CC 04/23/2106/15/21 Jana Vick CHW Community Health Worker Primary Care - CC 06/08/21 Tor Joseph DPM 2945 [facility] [address] [place] [address] Assigned Musculoskeletal Provider 07/05/21 03/19/22 Lorri Larsen MD [address] [place] [address] Otolaryngology 07/21/21 Lorri Larsen MD [address] [place] [address] Assigned Surgical Provider 10/10/21 04/28/23 Rafita Ayers MD [address] [place] [address] Critical Care 11/30/21 Kaelyn New AuD [address] [place] [address] Distillery Worker Audiology 12/09/21 Marino Hayes MD [address] [place] [address] Cardiovascular Disease 09/28/22 Marino Hayes MD [address] [place] [address] Assigned Heart and Vascular Provider 10/09/22 06/06/23 Nataliia Gomez MD [address] [place] [address], [address] [place] [address] Assigned Heart and Vascular Provider 06/07/23 documented as of this encounter
--- OUTSIDE RECORDS SUMMARY | 2023-09-06 13:51 | XMS_ITS | Encounter Summary ---
Author Organization [place] Address [address] [place] [address] Care Team Providers Care Side Door Man Name Role Phone Onesimo Bruno MD Primary Care Provider +[phone] Bhavna Mac PharmD Unavailable +[phone] Isaac Bro RN Unavailable +[phone] Onesimo Bruno MD Unavailable +[phone] Nataliia Gomez MD Unavailable Luly Grant MD Unavailable +[phone] Rafita Ayers MD Unavailable +[phone] Flo Henry MD Unavailable +[phone] Jana Vick CHW Unavailable Unavailabl Tor Saldana DPM Unavailable +[phone] Lorri Larsen MD Unavailable +[phone] Lorri Larsen MD Unavailable +[phone] Rafita Ayers MD Unavailable +[phone] Kaelyn New Unavailable +[phone] Marino Hayes MD Unavailable + [phone] Marino Hayes MD Unavailable + [phone] Nataliia Gomez MD Unavailable Encounter Details Date Type Department Care Team (Late st Contact Info) Description 01/21/2022 MyC Medical Advice [facility] [address] [place] [phone] Isabell Colon Social History Tobacco Use Types [...] Coronavirus/COVID-19? 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 documented as of this encounter Plan of Treatment Upcoming Encounters Date Type Department Care Team (Late st Contact Info) Description 09/26/2023 11:40 AM CDT Office Visit [facility] [address] [place] [phone] Onesimo Bruno MD [address] [place] [address] 11/24/2023 1:20 PM CDT Virtual Visit [facility] [address] [phone] Flo Henry MD [address] [place] [address] [phone] documented as of this encounter Goals Goal [...] to work with my Weight Watcher's volleyball assistant coach and start attending their Webinars. 4. I will report progress towards this goal at outreach telephone calls from the [facility] team Discussed 08/12/23 documented as of this encounter Visit Diagnoses Not on filedocumented in this encounter Additional Health Concerns Active Problems Noted Date Diagnosed Date HP GENERAL PROBLEM 11/13/2021 Assessment Noted Time PHQ-9 Depression Total Score: 10 024 7:49 AM CDT documented as of this encounter Care Teams Side Door Man Relationship Specialty Start Date End Date Onesimo Bruno MD PCP - General 08/11/06 Bhavna Mac, PharmD 870 [place] [address] Pharmacist Pharmacist 07/11/18 Isaac Bro, RN Lead Thread Marker Primary Care - CC 09/01/18 Onesimo Bruno MD 1390 [place] [address] Assigned PCP 07/30/20 Nataliia Gomez MD 1600 [facility], [address] [place], [place] [phone] Assigned Heart and Vascular Provider 08/29/20 10/08/22 Luly Grant MD 1655 [facility] [address] [place] [address] Assigned Allergy Provider 08/29/20 04/16/22 Rafita Ayers MD [address] [place] [address] Assigned Pulmonology Provider 10/12/20 06/06/23 Flo Henry MD [address] [address] Assigned Behavioral Health Provider 09/21/20 Jana Vick, W Community Health Worker Primary Care - CC 06/08/21 Tor Joseph DPM [facility] hospital[facility] 200[place], [place] [address] Assigned Musculoskeletal Provider 07/05/21 03/19/22 Lorri Larsen MD [address] [place] [address] Otolaryngology 07/21/21 Lorri Larsen MD [address] [place] [address] Assigned Surgical Provider 10/10/21 04/28/23 Rafita Ayers MD [address] [place] [address] Critical Care 11/30/21 Kaelyn New AuD [facility] [place] [address] Chimney Builder Audiology 12/09/21 Marino Hayes MD [address] [place] [address] Cardiovascular Disease 09/28/22 Marino Hayes MD [address] [place] [address] Assigned Heart and Vascular Provider 10/09/22 06/06/23 Nataliia Gomez MD [address] [place] [address], [address] [place] [address] Assigned Heart and Vascular Provider 06/07/23 documented as of this encounter
--- OUTSIDE RECORDS SUMMARY | 2023-09-06 13:51 | XMS_ITS | Encounter Summary ---
Author Organization [place] Address [address] [place] [address] Care Team Providers Care Diploma Maker Name Role Phone Onesimo Bruno MD Primary Care Provider +[phone] Bhavna Mac PharmD Unavailable +[phone] Isaac Bro RN Unavailable +[phone] Onesimo Bruno MD Unavailable +[phone] Nataliia Gomez MD Unavailable Luly Grant MD Unavailable +[phone] Rafita Ayers MD Unavailable +[phone] Flo Henry MD Unavailable +[phone] Jana Vick CHW Unavailable Unavailabl Tor Saldana DPM Unavailable +[phone] Lorri Larsen MD Unavailable +[phone] Lorri Larsen MD Unavailable +[phone] Rafita Ayers MD Unavailable +[phone] Kaelyn New Unavailable +[phone] Marino Hayes MD Unavailable + [phone] Marino Hayes MD Unavailable + [phone] Nataliia Gomez MD Unavailable Encounter Details Date Type Department Care Team (Late st Contact Info) Description 01/20/2022 MyC Medical Advice [facility] [address] [place] [phone] Joy Zuniga Social History Tobacco Use Types [...] Coronavirus/COVID-19? 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 documented as of this encounter Plan of Treatment Upcoming Encounters Date Type Department Care Team (Late st Contact Info) Description 09/26/2023 11:40 AM CDT Office Visit [facility] [address] [place] [phone] Onesimo Bruno MD [address] [place] [address] 11/24/2023 1:20 PM CDT Virtual Visit [facility] [address] [phone] Flo Henry MD [address] [place] [address] documented as of this encounter Goals Goal [...] to work with my Weight Watcher's coach driver and start attending their Webinars. [...] documented as of this encounter Care Teams Diploma Maker Relationship Specialty Start Date End Date Onesimo Bruno MD PCP - General 08/11/06 Bhavna Mac, PharmD 870 [place] [address] Pharmacist Pharmacist 07/11/18 Isaac Bro, RN Lead Jackaroo Primary Care - CC 09/01/18 Onesimo Bruno MD 1390 [place] [address] Assigned PCP 07/30/20 Nataliia Gomez MD 1600 [facility], [address] [place] [address] Assigned Heart and Vascular Provider 08/29/20 10/08/22 Luly Grant MD 1655 [facility] [address] [place] [address] Assigned Allergy Provider 08/29/20 04/16/22 Rafita Ayers MD [address] [place] [address] Assigned Pulmonology Provider 10/12/20 06/06/23 Flo Henry MD [address] [address] Assigned Behavioral Health Provider 09/21/20 Jana Vick, W Community Health Worker Primary Care - CC 06/08/21 Tor Joseph DPM [facility]5 [facility] [address] [address] Assigned Musculoskeletal Provider 07/05/21 03/19/22 Lorri Larsen MD [address] [place] [address] Otolaryngology 07/21/21 Lorri Larsen MD [address] [place] [address] Assigned Surgical Provider 10/10/21 04/28/23 Rafita Ayers MD [address] [place] [address] Critical Care 11/30/21 Kaelyn New, [facility]5 [place] [address] Process Control Tech Audiology 12/09/21 Marino Hayes MD [address] [place] [address] Cardiovascular Disease 09/28/22 Marino Hayes MD [address] [place] [address] Assigned Heart and Vascular Provider 10/09/22 06/06/23 Nataliia Gomez MD [address] [place] [address], [address] [place] [address] Assigned Heart and Vascular Provider 06/07/23 documented as of this encounter
--- OUTSIDE RECORDS SUMMARY | 2023-09-06 13:51 | XMS_ITS | Encounter Summary ---
Author Organization [place] Address [address] [place] [address] Care Team Providers Care Slurry Tank Tender Name Role Phone Onesimo Bruno MD Primary Care Provider +[phone] Bhavna Mac PharmD Unavailable +[phone] Isaac Bro RN Unavailable +[phone] Ilda Tapia CHW Unavailable +[phone] Onesimo Bruno MD Unavailable +[phone] Nataliia Gomez MD Unavailable Luly Grant MD Unavailable +[phone] Rafita Ayers MD Unavailable +[phone] Flo Henry MD Unavailable +[phone] Susan Robert CHW Unavailable Unavailable Jana Vick CHW Unavailable UnavailTor Brown DPM Unavailable +[phone] Lorri Larsen MD Unavailable +[phone] Lorri Larsen MD Unavailable +[phone] Rafita Ayers MD Unavailable +[phone] Kaelyn New Unavailable +[phone] Marino Hayes MD Unavailable + [phone] Marino Hayes MD Unavailable + [phone] Nataliia Gomez MD Unavailable Encounter Details Date Type Department Care Team (Late st Contact Info) Description 10/12/2020 MyC Medical Advice [facility] 1600 [facility] [address] [place] [phone] Rafita Ayers MD [address] [place] [address] Social History Tobacco Use Types Packs/Day Years [...] Description 09/26/2023 11:40 AM CDT Office Visit [facility] [address] [place] [phone] Onesimo Bruno MD [facility] [place] [address] 11/24/2023 1:20 PM CDT Virtual Visit [facility] [place] [address] [place] [phone] Flo Henry MD [address] [phone] documented as of this encounter Visit Diagnoses Not on filedocumented in this encounter Additional Health Concerns Assessment Noted Time PHQ-9 Depression Total Score: 14 022 10:49 AM ROOFER ASSISTANT documented as of this encounter Care Teams Slurry Tank Tender Relationship Specialty Start Date End Date Onesimo Bruno MD PCP - General 08/11/06 Bhavna Mac, Elio 870 [place] [address] Pharmacist Pharmacist 07/11/18 Isaac Bro, RN Lead Radio Adjuster Primary Care - CC 09/01/18 Ilda Tapia Vaibhav Community Health Worker Primary Care - CC 09/01/1804/22 Onesimo Bruno MD [address] [place] [address] Assigned PCP 07/30/20 Nataliia Gomez MD 1600 [facility], [address] [place], [place] [phone] Assigned Heart and Vascular Provider 08/29/20 10/08/22 [place] [address] [place] [address] [address] [place], [place] [phone] Assigned Allergy Provider 08/29/20 04/16/22 Rafita Ayers MD [address] [place] [address] Assigned Pulmonology Provider 10/12/20 06/06/23 Flo Henry MD [facility]5 [address] [phone] Assigned Behavioral Health Provider 09/21/20 Susan Robert, W Community Health Worker Primary Care - CC 04/23/2106/15/21 Jana Vick W Community Health Worker Primary Care - CC 06/08/21 Tor Joseph DPM 2945 [facility] [address] [place] [address] Assigned Musculoskeletal Provider 07/05/21 03/19/22 Lorri Larsen MD [address] [place] [address] 469775 Otolaryngology 07/21/21 Lorri Larsen MD [address] [place] [address] Assigned Surgical Provider 10/10/21 04/28/23 Rafita Ayers MD [address] [place] [address] Critical Care 11/30/21 Kaelyn New AuD [address] [place] [address] Bunch Maker Hand Audiology 12/09/21 Marino Hayes MD [address] [place] [address] Cardiovascular Disease 09/28/22 Marino Hayes MD [address] [place] [address] Assigned Heart and Vascular Provider 10/09/22 06/06/23 Nataliia Gomez MD 1600 [facility], [address] [place] [address] Assigned Heart and Vascular Provider 06/07/23 documented as of this encounter
--- OUTSIDE RECORDS SUMMARY | 2023-09-06 13:51 | XMS_ITS | Encounter Summary ---
Author Organization [place] Address [address] [place] [address] Care Team Providers Care Egg Producer Name Role Phone Onesimo Bruno MD Primary Care Provider [phone] Bhavna Mac PharmD Unavailable +[phone] Isaac Bro RN Unavailable [phone] Ilda Tapia CHW Unavailable +[phone] Onesimo Bruno MD Unavailable Nataliia Gomez MD Unavailable Luly Grant MD Unavailable +[phone] Rafita Ayers MD Unavailable +[phone] Flo Henry MD Unavailable +[phone] Susan Robert CHW Unavailable Unavailable Jana Vick CHW Unavailable UnavailTor Brown DPM Unavailable +[phone] Lorri Larsen MD Unavailable +[phone] Lorri Larsen MD Unavailable +[phone] Rafita Ayers MD Unavailable +[phone] Kaelyn New Unavailable +[phone] Marino Hayes MD Unavailable + [phone] Marino Hayes MD Unavailable + [phone] Nataliia Gomez MD Unavailable Encounter Details Date Type Department Care Team (Late st Contact Info) Description 10/10/2020 MyC Medical Advice [facility] 2945 [facility] 200 [place] [phone] Luly Grant MD 1655 [facility] 111 [place], [place] [phone] Social History Tobacco Use Types Packs/Day Years [...] Description 09/26/2023 11:40 AM CDT Office Visit [facility] 1390 [place] [phone] Onesimo Bruno MD 1390 [place] [address] 11/24/2023 1:20 PM CDT Virtual Visit [facility] Neurology [facility] 187 [place] [phone] Flo Henry MD [address] [phone] documented as of this encounter Visit Diagnoses Not on filedocumented in this encounter Additional Health Concerns Assessment Noted Time PHQ-9 Depression Total Score: 14 022 10:49 AM ETHYLENE COMPRESSOR OPERATOR documented as of this encounter Care Teams Egg Producer Relationship Specialty Start Date End Date Onesimo Bruno MD PCP - General 08/11/06 Bhavna Mac, GenesisD 870 [place] [address] Pharmacist Pharmacist 07/11/18 Isaac Bro, RN Lead Therapist Occupational Primary Care - CC 09/01/18 Ilda Tapia CHW Community Health Worker Primary Care - CC 09/01/1804/22 Onesimo Bruno MD [facility] [place] [address] Assigned PCP 07/30/20 Nataliia Gomez MD 1600 [facility], [address] [place], [place] [address] Assigned Heart and Vascular Provider 08/29/20 10/08/22 Luly Grant MD 1655 [facility] [address] [place], [place] [address] Assigned Allergy Provider 08/29/20 04/16/22 Rafita Ayers MD 909 [place] [address] Assigned Pulmonology Provider 10/12/20 06/06/23 Flo Henry MD 1875 [facility] [address] [place], [place] [phone] Assigned Behavioral Health Provider 09/21/20 Susan Robert, W Community Health Worker Primary Care - CC 04/23/2106/15/21 Jana Vick, W Community Health Worker Primary Care - CC 06/08/21 Tor Joseph DPM 2945 [facility] [address] [place] [address] Assigned Musculoskeletal Provider 07/05/21 03/19/22 Lorri Larsen MD [address] [place] [address] 320615 Otolaryngology 07/21/21 Lorri Larsen MD [address] [place] [address] Assigned Surgical Provider 10/10/21 04/28/23 Rafita Ayers MD [address] [place] [address] Critical Care 11/30/21 Kaelyn New AuD [address] [place] [address] Convalescent Sitter Audiology 12/09/21 Marino Hayes MD [address] [place] [address] Cardiovascular Disease 09/28/22 Marino Hayes MD [address] [place] [address] Assigned Heart and Vascular Provider 10/09/22 06/06/23 Nataliia Gomez MD 1600 [facility], [address] [place] [address] Assigned Heart and Vascular Provider 06/07/23 documented as of this encounter
--- OUTSIDE RECORDS SUMMARY | 2023-09-06 13:51 | XMS_ITS | Encounter Summary ---
Author Organization [place] Address [address] [place] [address] Care Team Providers Care Over The Horizon Targeting Supervisor Name Role Phone Onesimo Bruno MD Primary Care Provider [phone] Bhavna Mac PharmD Unavailable +[phone] Isaac Bro RN Unavailable +[phone] Ilda Tapia CHW Unavailable +[phone] Onesimo Bruno MD Unavailable +[phone] Manuel Calderon MD, Jon Unavailable +[phone] Nataliia Gomez MD Unavailable Luly Grant MD Unavailable +[phone] Rafita Ayers MD Unavailable +[phone] Flo Henry MD Unavailable +[phone] Susan Robert CHW Unavailable Unavailable Jana Vick CHW Unavailable UnavailTor Brown DPM Unavailable +[phone] Lorri Larsen MD Unavailable +[phone] Lorri Larsen MD Unavailable +[phone] Rafita Ayers MD Unavailable +[phone] Kaelyn New Unavailable +[phone] Marino Hayes MD Unavailable + [phone] Marino Hayes MD Unavailable + [phone] Nataliia Gomez MD Unavailable Reason for Visit * Reason Comments Clinic Care Coordination - Follow-up Encounter Details Date Type Department Care Team (Latest Contact Info) Description 08/14/2020 Communication - [facility] [address] [phone] Ilda Tapia CHW Clinic Care Coordination - [...] 9:16 AM Encounter Date: 08/14/2020 Status: Signed Planograph Operator: Ilda Kaye CHW (Community Health Worker) Patient spoke with CCC RN on 08/06/20 and discussed goals. CCC RN will follow up in 2 weeks CHW delegations: None Next outreach due: 09/05/20 documented in this encounter Plan of Treatment Upcoming Encounters Date Type Department Care Team (Late st Contact Info) Description 09/26/2023 11:40 AM CDT Office Visit [address] [phone] Onesimo Bruno MD 1390 [place] [address] 11/24/2023 1:20 PM CDT Virtual Visit [facility] Neurology [facility] 1875 [place] [phone] Flo Henry MD [address] [place] [address] [address] [place], [place] [phone] documented as of this encounter Visit Diagnoses Not on filedocumented in this encounter Additional Health Concerns Assessment Noted Time PHQ-9 Depression Total Score: 14 022 10:49 AM BOOKS BINDER documented as of this encounter Care Teams Over The Horizon Targeting Supervisor Relationship Specialty Start Date End Date Onesimo Bruno MD PCP - General 08/11/06 Bhavna Mac, PharmD 0 [place] [address] Pharmacist Pharmacist 07/11/18 Isaac Bro, RN Lead Cardiac Cath Technician Primary Care - CC 09/01/18 Ilda Tapia Vaibhav Community Health Worker Primary Care - CC 09/01/1804/22 Onesimo Bruno MD 1390 [place] [address] Assigned PCP 07/30/20 Florentino Jackson MD [facility] [address] [place] [address] 602 [place] [address] Assigned Surgical Provider 08/29/20 09/27/20 Nataliia Gomez MD 1600 [facility], [address] [place] [address] Assigned Heart and Vascular Provider 08/29/20 10/08/22 Luly Grant MD [address] [facility] [address] [place] [address] Assigned Allergy Provider 08/29/20 04/16/22 Rafita Ayers MD [address] [place] [address] 743725 Assigned Pulmonology Provider 10/12/20 06/06/23 Flo Henry MD [facility] [address] [address] Assigned Behavioral Health Provider 09/21/20 Susan Robert, CHW Community Health Worker Primary Care - CC 04/23/2106/15/21 Jana Vick, CHW Community Health Worker Primary Care - CC 06/08/21 Tor Joseph DPM 2945 [facility] [address] [place] [address] Assigned Musculoskeletal Provider 07/05/21 03/19/22 Lorri Larsen MD [address] [place] [address] Otolaryngology 07/21/21 Lorri Larsen MD [address] [place] [address] Assigned Surgical Provider 10/10/21 04/28/23 Rafita Ayers MD 909 [place] [address] Critical Care 11/30/21 Kaelyn New AuD 1825 [place] [address] Computer Trainer Audiology 12/09/21 Marino Hayes MD [address] [place] [address] Cardiovascular Disease 09/28/22 Marino Hayes MD [address] [place] [address] Assigned Heart and Vascular Provider 10/09/22 06/06/23 Nataliia Gomez MD 1600 [facility], [address] [place] [address] Assigned Heart and Vascular Provider 06/07/23 documented as of this encounter
--- OUTSIDE RECORDS SUMMARY | 2023-09-06 13:51 | XMS_ITS | Encounter Summary ---
Author Organization [place] Address [address] [place] [address] Care Team Providers Care Marketing Services Manager Name Role Phone Onesimo Bruno MD Primary Care Provider [phone] Bhavna Mac PharmD Unavailable +[phone] Isaac Bro RN Unavailable [phone] Ilda Tapia CHW Unavailable +[phone] Onesimo Bruno MD Unavailable +[phone] Nataliia Gomez MD Unavailable Luly Grant MD Unavailable +[phone] Rafita Ayers MD Unavailable +[phone] Flo Henry MD Unavailable +[phone] Susan Robert CHW Unavailable Unavailable Jana Vick CHW Unavailable UnavailTor Brown DPM Unavailable +[phone] Lorri Larsen MD Unavailable +[phone] Lorri Larsen MD Unavailable +[phone] Rafita Ayers MD Unavailable +[phone] Kaelyn New Unavailable +[phone] Marino Hayes MD Unavailable + [phone] Marino Hayes MD Unavailable + [phone] Nataliia Gomez MD Unavailable Encounter Details Date Type Department Care Team (Late st Contact Info) Description 12/16/2020 MyC Medical Advice [facility] Care [place] 1874 [facility] [address] [place] [address] Nataliia Gomez MD 1600 [facility], [address] [place] [address] Social History Tobacco Use Types Packs/Day Years Used Date Smoking Tobacco: Never Smokeless Tobacco: Never Alcohol Use Standard Drinks/Week Comments No 0 (1 standard drink = 0.6 oz pur e alcohol) PHQ-2 Answer Date Recorded PHQ-2 Score 1 11/04/2020 Sex and Gender Information Value Date Recorded Sex Assigned at Male 05/09/2020 12:49 AM CDT Gender Identity Male 05/09/2020 12:49 AM CDT Sexual Orientation Gracia 09/17/2020 11 :45 PM CDT COVID-19 Exposure [...] 09/26/2023 11:40 AM CDT Office Visit [facility] 1390 [place] [phone] Onesimo Bruno MD 1390 [place] [address] 11/24/2023 1:20 PM CDT Virtual Visit [facility] Neurology Clinic [place] [address] [place] [phone] Flo Henry MD 1874 [facility] [address] [place] [address] documented as of this encounter Visit Diagnoses Not on filedocumented in this encounter Additional Health Concerns Assessment Noted Time PHQ-9 Depression Total Score: 7 11/05/19 21 4:49 PM CDT documented as of this encounter Care Teams Marketing Services Manager Relationship Specialty Start Date End Date Onesimo Bruno MD PCP - General 08/11/06 Bhavna Mac PharmD 870 [place] [address] Pharmacist Pharmacist 07/11/18 Isaac Bro, RN Lead Director Of Informatics Primary Care - CC 09/01/18 Ilda Tapia W Community Health Worker Primary Care - CC 09/01/1804/22 Onesimo Bruno MD [address] [place] [address] Assigned PCP 07/30/20 Nataliia Gomez MD 1600 [facility], [address] [place] [address] Assigned Heart and Vascular Provider 08/29/20 10/08/22 Luly Grant MD 1655 [facility] [address] [place] [address] Assigned Allergy Provider 08/29/20 04/16/22 Rafita Ayers MD 909 [place] [address] Assigned Pulmonology Provider 10/12/20 06/06/23 Flo Henry MD [facility] [address] [phone] Assigned Behavioral Health Provider 09/21/20 Susan Robert, Vaibhav Community Health Worker Primary Care - CC 04/23/2106/15/21 Jana Vick, W Community Health Worker Primary Care - CC 06/08/21 Tor Joseph DPM 2945 [facility] [address] [place] [address] Assigned Musculoskeletal Provider 07/05/21 03/19/22 Lorri Larsen MD [address] [place] [address] Otolaryngology 07/21/21 Lorri Larsen MD [address] [place] [address] Assigned Surgical Provider 10/10/21 04/28/23 Rafita Ayers MD [address] [place] [address] Critical Care 11/30/21 Kaelyn New AuD [facility] [place] [address] Licensed Final Expense Agents Audiology 12/09/21 Marino Hayes MD [address] [place] [address] Cardiovascular Disease 09/28/22 Marino Hayes MD [address] [place] [address] Assigned Heart and Vascular Provider 10/09/22 06/06/23 Nataliia Gomez MD 1600 [facility], [address] [place] [address] Assigned Heart and Vascular Provider 06/07/23 documented as of this encounter
--- OUTSIDE RECORDS SUMMARY | 2023-09-06 13:51 | XMS_ITS | Encounter Summary ---
Author Organization [facility] Address [address] [place] [address] Care Team Providers Care Bindery Manager Name Role Phone Onesimo Bruno MD Primary Care Provider +[phone] Bhavna Mac PharmD Unavailable +[phone] Isaac Bro RN Unavailable +[phone] Ilda Tapia CHW Unavailable +[phone] Onesimo Bruno MD Unavailable +[phone] Nataliia Gomez MD Unavailable Luly Grant MD Unavailable +[phone] Rafita Ayers MD Unavailable +[phone] Flo Henry MD Unavailable +[phone] Susan Robert CHW Unavailable Unavailable Jana Vick CHW Unavailable UnavailTor Brown DPM Unavailable +[phone] Lorri Larsen MD Unavailable +[phone] Lorri Larsen MD Unavailable +[phone] Rafita Ayers MD Unavailable +[phone] Kaelyn New Unavailable +[phone] Marino Hayes MD Unavailable + [phone] Marino Hayes MD Unavailable + [phone] Nataliia Gomez MD Unavailable Encounter Details Date Type Department Care Team (Late st Contact Info) Description 01/24/2021 MyC Medical Advice [facility] [address] [place] [address] [phone] Onesimo Bruno MD [address] [place] [address] Social History Tobacco Use Types Packs/Day Years [...] CDT Office Visit [facility] [address] [place] [phone] Onesimo Bruno MD [address] [place] [address] 11/24/2023 1:20 PM CDT Virtual Visit [facility]rology Clinic [address] [phone] Flo Henry MD [address] [place] [address] [phone] documented as of this encounter Visit Diagnoses Not on filedocumented in this encounter Additional Health Concerns Assessment Noted Time PHQ-9 Depression Total Score: 7 11/05/19 21 4:49 PM CDT documented as of this encounter Care Teams Bindery Manager Relationship Specialty Start Date End Date Onesimo Bruno MD PCP - General 08/11/06 Bhavna Mac, Elio 870 [place] [address] Pharmacist Pharmacist 07/11/18 Isaac Bro, RN Lead Drop Count Associate Primary Care - CC 09/01/18 Ilda Tapia W Community Health Worker Primary Care - CC 09/01/1804/22 Onesimo Bruno MD 1390 [place] [address] Assigned PCP 07/30/20 Nataliia Gomez MD [address] [place] [address], [address] [place] [address] Assigned Heart and Vascular Provider 08/29/20 10/08/22 [place] [address] [place] [address] [address] [place] [address] Assigned Allergy Provider 08/29/20 04/16/22 Rafita Ayers MD 9 [place] [address] Assigned Pulmonology Provider 10/12/20 06/06/23 Flo Henry MD [facility] [address] [address] Assigned Behavioral Health Provider 09/21/20 Susan Robert, ELISA Community Health Worker Primary Care - CC 04/23/2106/15/21 Jana Vick CHW Community Health Worker Primary Care - CC 06/08/21 Tor Joseph DPM 2945 [facility] [address] [place] [address] Assigned Musculoskeletal Provider 07/05/21 03/19/22 Lorri Larsen MD [address] [place] [address] Otolaryngology 07/21/21 Lorri Larsen MD [address] [place] [address] Assigned Surgical Provider 10/10/21 04/28/23 Rafita Ayers MD [address] [place] [address] Critical Care 11/30/21 Kaelyn New AuD [address] [place] [address] [employer] Team Member Audiology 12/09/21 Marino Hayes MD [address] [place] [address] Cardiovascular Disease 09/28/22 Marino Hayes MD [address] [place] [address] Assigned Heart and Vascular Provider 10/09/22 06/06/23 Nataliia Gomez MD [address] [place] [address], [address] [place] [address] Assigned Heart and Vascular Provider 06/07/23 documented as of this encounter
--- OUTSIDE RECORDS SUMMARY | 2023-09-06 13:51 | XMS_ITS | Encounter Summary ---
Author Organization [facility] Address [address] [place] [address] Care Team Providers Care Masonry Inspector Name Role Phone Onesimo Bruno MD Primary Care Provider +[phone] Bhavna Mac PharmD Unavailable +[phone] Isaac Bro RN Unavailable +[phone] Onesimo Bruno MD Unavailable +[phone] Nataliia Gomez MD Unavailable Luly Grant MD Unavailable +[phone] Rafita Ayers MD Unavailable +[phone] Flo Henry MD Unavailable +[phone] Jana Vick CHW Unavailable Unavailabl Tor Saldana DPM Unavailable +[phone] Lorri Larsen MD Unavailable +[phone] Lorri Larsen MD Unavailable +[phone] Rafita Ayers MD Unavailable +[phone] Kaelyn New Unavailable +[phone] Marino Hayes MD Unavailable + [phone] Marino Hayes MD Unavailable + [phone] Nataliia Gomez MD Unavailable Encounter Details Date Type Department Care Team (Late st Contact Info) Description 12/08/2021 MyC Medical Advice [facility] [address] [place] [phone] Vane Castro Social History Tobacco Use Types [...] 11:40 AM CDT Office Visit [facility] [address] [place] [phone] [place] [address] [place] [address] 11/24/2023 1:20 PM CDT Virtual Visit [facility] Neurology Clinic [address] [phone] Flo Henry MD [address] [place] [address] documented as of this encounter Goals Goal [...] continue to work with my Weight Watcher's sales coach and start attending their Webinars. 4. I will report progress towards this goal at outreach telephone calls from the [facility] team Discussed 08/12/23 documented as of this encounter Visit Diagnoses Not on filedocumented in this encounter Additional Health Concerns Active Problems Noted Date Diagnosed Date HP GENERAL PROBLEM 11/13/2021 Assessment Noted Time PHQ-9 Depression Total Score: 10 024 7:49 AM CDT documented as of this encounter Care Teams Masonry Inspector Relationship Specialty Start Date End Date Onesimo Bruno MD PCP - General 08/11/06 Bhavna Mac, PharmD 870 [place] [address] Pharmacist Pharmacist 07/11/18 Isaac Bro, RN Lead Landfill Grader Primary Care - CC 09/01/18 Onesimo Bruno MD 1390 [place] [address] Assigned PCP 07/30/20 Nataliia Gomez MD 1600 [facility], [address] [place], [place] [phone] Assigned Heart and Vascular Provider 08/29/20 10/08/22 Luly Grant MD 1655 [facility] [address] [place] [address] Assigned Allergy Provider 08/29/20 04/16/22 Rafita Ayers MD [address] [place] [address] Assigned Pulmonology Provider 10/12/20 06/06/23 Flo Henry MD [address] [address] Assigned Behavioral Health Provider 09/21/20 Jana Vick, W Community Health Worker Primary Care - CC 06/08/21 Tor Joseph DPM [facility]5 [facility] [address], [place] [address] Assigned Musculoskeletal Provider 07/05/21 03/19/22 Lorri Larsen MD [address] [place] [address] Otolaryngology 07/21/21 Lorri Larsen MD [address] [place] [address] Assigned Surgical Provider 10/10/21 04/28/23 Rafita Ayers MD [address] [place] [address] Critical Care 11/30/21 Kaelyn New AuD [facility]5 [place] [address] Database Security Administrator Audiology 12/09/21 Marino Hayes MD [address] [place] [address] Cardiovascular Disease 09/28/22 Marino Hayes MD [address] [place] [address] Assigned Heart and Vascular Provider 10/09/22 06/06/23 Nataliia Gomez MD [address] [place] [address], [address] [place] [address] Assigned Heart and Vascular Provider 06/07/23 documented as of this encounter
--- OUTSIDE RECORDS SUMMARY | 2023-09-06 13:51 | XMS_ITS | Encounter Summary ---
Author Organization [facility] Address [address] [place] [address] Care Team Providers Care Feeder Associate Name Role Phone Onesimo Bruno MD Primary Care Provider +[phone] Bhavna Mac PharmD Unavailable +[phone] Isaac Bro RN Unavailable [phone] Ilda Tapia CHW Unavailable +[phone] Onesimo Bruno MD Unavailable +[phone] Nataliia Gomez MD Unavailable Luly Grant MD Unavailable +[phone] Rafita Ayers MD Unavailable +[phone] Flo Henry MD Unavailable +[phone] Susan Robert CHW Unavailable Unavailable Jana Vick CHW Unavailable UnavailTor Brown DPM Unavailable +[phone] Lorri Larsen MD Unavailable +[phone] Lorri Larsen MD Unavailable +[phone] Rafita Ayers MD Unavailable +[phone] Kaelyn New Unavailable +[phone] Marino Hayes MD Unavailable + [phone] Marino Hayes MD Unavailable + [phone] Nataliia Gomez MD Unavailable Encounter Details Date Type Department Care Team (Late st Contact Info) Description 03/04/2021 MyC Medical Advice [facility] [address] [place] [phone] Onesimo Bruno MD [address] [place] [address] Social History Tobacco Use Types Packs/Day Years [...] COVID-19? No / Unsure 03/03/2021 3:44 PM GEOSCIENCE TECHNICIAN documented as of this encounter Plan of Treatment Upcoming Encounters Date Type Department Care Team (Late st Contact Info) Description 09/26/2023 11:40 AM CDT Office Visit [facility] [address] [place] [phone] Onesimo Bruno MD [address] [place] [address] 11/24/2023 1:20 PM CDT Virtual Visit [facility] Neurology Clinic [facility] 1874 [place] [phone] Flo Henry MD [address] [phone] documented as of this encounter Visit Diagnoses Not on filedocumented in this encounter Additional Health Concerns Assessment Noted Time PHQ-9 Depression Total Score: 5 03/03/19 22 5:15 PM GEOSCIENCE TECHNICIAN documented as of this encounter Care Teams Feeder Associate Relationship Specialty Start Date End Date Onesimo Bruno MD PCP - General 08/11/06 Bhavna Mac, GenesisD 870 [place] [address] Pharmacist Pharmacist 07/11/18 Isaac Bro, RN Lead Gravity Prospecting Operator Primary Care - CC 09/01/18 Ilda Tapia CHW Community Health Worker Primary Care - CC 09/01/1804/22 Onesimo Bruno MD [facility]0 [place] [address] Assigned PCP 07/30/20 Nataliia Gomez MD [address] [facility], [address] [place], [place] [address] Assigned Heart and Vascular Provider 08/29/20 10/08/22 Luly Grant MD 1655 [facility] [address] [place], [place] [phone] Assigned Allergy Provider 08/29/20 04/16/22 Rafita Ayers MD 909 [place] [address] Assigned Pulmonology Provider 10/12/20 06/06/23 Flo Henry MD 1875 [facility] [address] [place], [place] [phone] Assigned Behavioral Health Provider 09/21/20 Susan Robert, W Community Health Worker Primary Care - CC 04/23/2106/15/21 Jana Vick, W Community Health Worker Primary Care - CC 06/08/21 Tor Joseph DPM 2945 [facility] [address] [place] [address] Assigned Musculoskeletal Provider 07/05/21 03/19/22 Lorri Larsen MD [address] [place] [address] 973005 Otolaryngology 07/21/21 Lorri Larsen MD [address] [place] [address] Assigned Surgical Provider 10/10/21 04/28/23 Rafita Ayers MD [address] [place] [address] Critical Care 11/30/21 Kaelyn New AuD [address] [place] [address] Patient Intake Representative Audiology 12/09/21 Marino Hayes MD [address] [place] [address] Cardiovascular Disease 09/28/22 Marino Hayes MD [address] [place] [address] Assigned Heart and Vascular Provider 10/09/22 06/06/23 Nataliia Gomez MD [address] [facility], [address] [place] [address] Assigned Heart and Vascular Provider 06/07/23 documented as of this encounter
--- OUTSIDE RECORDS SUMMARY | 2023-09-06 13:51 | XMS_ITS | Encounter Summary ---
Author Organization [facility] Address [address] [place] [address] Care Team Providers Care Tax Manager Name Role Phone Onesimo Bruno MD Primary Care Provider +[phone] Bhavna Mac PharmD Unavailable +[phone] Isaac Bro RN Unavailable [phone] Onesimo Bruno MD Unavailable +[phone] Nataliia Gomez MD Unavailable Luly Grant MD Unavailable +[phone] Rafita Ayers MD Unavailable +[phone] Flo Henry MD Unavailable +[phone] Jana Vick CHW Unavailable Unavailabl Tor Saldana DPM Unavailable +[phone] Lorri Larsen MD Unavailable +[phone] Lorri Larsen MD Unavailable +[phone] Rafita Ayers MD Unavailable +[phone] Kaelyn New Unavailable +[phone] Marino Hayes MD Unavailable + [phone] Marino Hayes MD Unavailable + [phone] Nataliia Gomez MD Unavailable Encounter Details Date Type Department Care Team (Late st Contact Info) Description 12/01/2021 MyC Medical Advice [facility] Surgical Weight Loss Clinic [address] [place] [phone] Joy Zuniga Social History Tobacco Use Types [...] Description 09/26/2023 11:40 AM CDT Office Visit [facility] [address] [place] [phone] [place] [address] [place] [address] 11/24/2023 1:20 PM CDT Virtual Visit [facility] Neurology Clinic [address] [phone] Flo Henry MD [address] [place] [address] [phone] documented as of this encounter Goals Goal [...] [facility] team Discussed 08/12/23 documented as of this encounter Visit Diagnoses Not on filedocumented in this encounter Additional Health Concerns Active Problems Noted Date Diagnosed Date HP GENERAL PROBLEM 11/13/2021 Assessment Noted Time PHQ-9 Depression Total Score: 10 024 7:49 AM CDT documented as of this encounter Care Teams Tax Manager Relationship Specialty Start Date End Date Onesimo Bruno MD PCP - General 08/11/06 Bhavna Mac, PharmD 870 [place] [address] Pharmacist Pharmacist 07/11/18 Isaac Bro, RN Lead Dtp Operator Primary Care - CC 09/01/18 Onesimo Bruno MD 1390 [place] [address] Assigned PCP 07/30/20 Nataliia Gomez MD 1600 [facility], [address] [place], [place] [address] Assigned Heart and Vascular Provider 08/29/20 10/08/22 Luly Grant MD 1655 [facility] [address] [place] [address] Assigned Allergy Provider 08/29/20 04/16/22 Rafita Ayers MD [address] [place] [place] [address] Assigned Pulmonology Provider 10/12/20 06/06/23 Flo Henry MD [address] [address] Assigned Behavioral Health Provider 09/21/20 Jana Vick, W Community Health Worker Primary Care - CC 06/08/21 Tor Joseph DPM [facility]5 [facility] 200[place], [place] [address] Assigned Musculoskeletal Provider 07/05/21 03/19/22 Lorri Larsen MD [address] [place] [place] [address] Otolaryngology 07/21/21 Lorri Larsen MD [address] [place] [place] [address] Assigned Surgical Provider 10/10/21 04/28/23 Rafita Ayers MD [address] [place] [place] [address] Critical Care 11/30/21 Kaelyn New AuD [facility]5 [place] [address] Mail Order Sorter Audiology 12/09/21 Marino Hayes MD [address] [place] [address] Cardiovascular Disease 09/28/22 Marino Hayes MD [address] [place] [address] Assigned Heart and Vascular Provider 10/09/22 06/06/23 Nataliia Gomez MD [address] [place] [address], [address] [place] [address] Assigned Heart and Vascular Provider 06/07/23 documented as of this encounter
--- OUTSIDE RECORDS SUMMARY | 2023-09-06 13:52 | XMS_ITS | Encounter Summary ---
Author Organization [facility] Address [address] [place] [address] Care Team Providers Care Prepper Name Role Phone Onesimo Bruno MD Primary Care Provider [phone] Bhavna Mca PharmD Unavailable +[phone] Isaac Bro RN Unavailable [phone] Ilda Tapia CHW Unavailable +[phone] Onesimo Bruno MD Unavailable [phone] Manuel Calderon MD, Jon Unavailable +[phone] Nataliia Gomez MD Unavailable Luly Grant MD Unavailable +[phone] Rafita Ayers MD Unavailable +[phone] Flo Henry MD Unavailable +[phone] Susan Robert CHW Unavailable Unavailable Jana Vick CHW Unavailable UnavailTor Brown DPM Unavailable +[phone] Lorri Larsen MD Unavailable +[phone] Lorri Larsen MD Unavailable +[phone] Rafita Ayers MD Unavailable +[phone] Kaelyn New Unavailable +[phone] Marino Hayes MD Unavailable + [phone] Marino Hayes MD Unavailable Nataliia Gomez MD [...] AM CDT Office Visit [facility] [address] [place] [phone] Onesimo Bruno MD 1390 [place] [address] 11/24/2023 1:20 PM CDT Virtual Visit [facility] Neurology [address] [phone] Flo Henry MD [address] [place] [address] [phone] documented as of this encounter Visit Diagnoses Not on filedocumented in this encounter Additional Health Concerns Assessment Noted Time PHQ-9 Depression Total Score: 8 06/21/19 19 2:31 PM CDT documented as of this encounter Care Teams Prepper Relationship Specialty Start Date End Date Onesimo Bruno MD PCP - General 08/11/06 Bhavna Mac, GenesisD 870 [place] [address] Pharmacist Pharmacist 07/11/18 Isaac Bro, RN Lead Manager Discovery Primary Care - CC 09/01/18 Ilda Tapia CHW Community Health Worker Primary Care - CC 09/01/1804/22 Onesimo Bruno MD 1390 [place] [address] Assigned PCP 07/30/20 Florentino Jackson MD [facility] 347 [facility] 602 [place] [address] Assigned Surgical Provider 08/29/20 09/27/20 Nataliia Gomez MD 1600 [facility], [address] [place] [address] Assigned Heart and Vascular Provider 08/29/20 10/08/22 Luly Grant MD 1655 [facility] [address] [place], [place] [phone] Assigned Allergy Provider 08/29/20 04/16/22 Rafita Ayers MD 909 [place] [address] Assigned Pulmonology Provider 10/12/20 06/06/23 Flo Henry MD 1875 [facility] [address] [place], [place] [phone] Assigned Behavioral Health Provider 09/21/20 Susan Robert CHW Community Health Worker Primary Care - CC 04/23/2106/15/21 Jana Vick CHW Community Health Worker Primary Care - CC 06/08/21 Tor Joseph DPM 2945 [facility] [address] [place] [address] Assigned Musculoskeletal Provider 07/05/21 03/19/22 Lorri Larsen MD [address] [place] [address] Otolaryngology 07/21/21 Lorri Larsen MD [address] [place] [address] Assigned Surgical Provider 10/10/21 04/28/23 Rafita Ayers MD [address] [place] [address] Critical Care 11/30/21 Kaelyn New, [place] [address] [place] [address] Networking Specialist Audiology 12/09/21 Marino Hayes MD [address] [place] [address] Cardiovascular Disease 09/28/22 Marino Hayes MD [address] [place] [address] Assigned Heart and Vascular Provider 10/09/22 06/06/23 Nataliia Gomez MD [address] [place] [address], [address] [place] [address] Assigned Heart and Vascular Provider 06/07/23 documented as of this encounter
--- OUTSIDE RECORDS SUMMARY | 2023-09-06 13:52 | XMS_ITS | Encounter Summary ---
Author Organization [facility] Address [address] [place] [address] Care Team Providers Care Paint Roller Covers Supervisor Name Role Phone Onesimo Bruno MD Primary Care Provider [phone] Bhavna Mac PharmD Unavailable +[phone] Isaac Bro RN Unavailable [phone] Ilda Tapia CHW Unavailable +[phone] Onesimo Bruno MD Unavailable [phone] Manuel Calderon MD, Jon Unavailable +[phone] Nataliia Gomez MD Unavailable Luly Grant MD Unavailable +[phone] Rafita Ayers MD Unavailable +[phone] Flo Henry MD Unavailable +[phone] Susan Robert CHW Unavailable Unavailable Jana Vick CHW Unavailable UnavailTor Brown DPM Unavailable +[phone] Lorri Larsen MD Unavailable +[phone] Lorri Larsen MD Unavailable +[phone] Rafita Ayers MD Unavailable +[phone] Kaelyn New Unavailable +[phone] Marino Hayes MD Unavailable + [phone] Marino Hayes MD Unavailable Nataliia Gomez MD [...] Description 09/26/2023 11:40 AM CDT Office Visit [facility] [address] [place] [address] [phone] Onesimo Bruno MD 1390 [place] [address] 11/24/2023 1:20 PM CDT Virtual Visit [facility] Neurology [address] [phone] Flo Henry MD [address] [place] [address] [phone] documented as of this encounter Visit Diagnoses Not on filedocumented in this encounter Additional Health Concerns Assessment Noted Time PHQ-9 Depression Total Score: 8 06/21/19 19 2:31 PM CDT documented as of this encounter Care Teams Paint Roller Covers Supervisor Relationship Specialty Start Date End Date Onesimo Bruno MD PCP - General 08/11/06 Bhavna Mac, GenesisD 870 [place] [address] Pharmacist Pharmacist 07/11/18 Isaac Bor, RN Lead Security Professional Primary Care - CC 09/01/18 Ilda Tapia CHW Community Health Worker Primary Care - CC 09/01/1804/22 Onesimo Bruno MD 1390 [place] [address] Assigned PCP 07/30/20 Florentino Jackson MD [facility] 347 [facility] 602 [place] [address] Assigned Surgical Provider 08/29/20 09/27/20 Nataliia Gomez MD 1600 [facility], [address] [place] [address] Assigned Heart and Vascular Provider 08/29/20 10/08/22 Luly Grant MD 1655 [facility] [address] [place], [place] [phone] Assigned Allergy Provider 08/29/20 04/16/22 Rafita Ayers MD 909 [place] [address] Assigned Pulmonology Provider 10/12/20 06/06/23 Flo Henry MD 1875 [facility] [address] [place], [place] [phone] Assigned Behavioral Health Provider 09/21/20 Susan Robert CHW Community Health Worker Primary Care - CC 04/23/2106/15/21 Jana Vick CHW Community Health Worker Primary Care - CC 06/08/21 Tor Joseph DPM 2945 [facility] [address] [place] [address] Assigned Musculoskeletal Provider 07/05/21 03/19/22 Lorri Larsen MD [address] [place] [address] Otolaryngology 07/21/21 Lorri Larsen MD [address] [place] [address] Assigned Surgical Provider 10/10/21 04/28/23 Rafita Ayers MD [address] [place] [address] 60[address] Critical Care 11/30/21 Kaelyn New, [place] [address] [place] [address] Bead Trimmer Audiology 12/09/21 Marino Hayes MD [address] [place] [address] Cardiovascular Disease 09/28/22 Marino Hayes MD [address] [place] [address] Assigned Heart and Vascular Provider 10/09/22 06/06/23 Nataliia Gomez MD [address] [place] [address], [address] [place] [address] Assigned Heart and Vascular Provider 06/07/23 documented as of this encounter
--- OUTSIDE RECORDS SUMMARY | 2023-09-06 13:52 | XMS_ITS | Clinical Summary ---
Author Organization [facility] Address [place], [place] [address] Care Team Providers Care Metal Bonding Helper Name Role Phone Onesimo Bruno MD Primary Care Provider [phone] Josh Samayoa PsyD, LP Unavailable [phone] Allergies Active Allergy Reactions Criticality Noted Date [...] by mouth at bedtime. 5 03/19/2016 Active albuterol-ipratropi um (DUONEB) (2.5-0.5 mg) in 3 mL NEBULIZATION solution VVN Q FOUR TO SIX H PRF SOB 0 11/13/2018 Active VENTOLIN HFA 90 mcg/actuation inhaler TAKE 2 PUFFS EVERY 6 HOURS PRN 0 10/28/2018 Active BREO ELLIPTA 200mcg/25mcg inhaler INL 1 PUFF PO D 5 10/24/2018 Active metFORMIN (GLUCOPHAGE XR) 500 mg Extended-Release tablet Take 500 mg by mouth once daily. 09/13/2019 Active L.RHAMNOSUS UO-SEKCK0-KTLO OIL ORAL Take 500 mg by mouth once daily. Active ezetimibe (ZETIA) 10 mg tablet Take 10 mg by mouth once daily. 11/03/2019 Active fluticasone (50 mcg per actuation) nasal solution (FLONASE) Inhale 1 [place] in the nostril(s) 2 times daily if [...] mg by mouth every morning. 07/04/2021 Active benzonatate (TESSALON) 200 mg capsuleIndications: Cough, unspecified type Take 1 Capsule (200 mg) by mouth 3 times daily if needed for Cough. 20 Capsule 06/29/2023 Active Active Problems Problem Noted Date Diagnosed Date Wheezing 06/29/2023 Overview: Created by Conversion IDA (obstructive sleep apnea) 06/29/2023 Overview: Created by Conversion Hypercholesterolemia 06/29/2023 Overview: Created by Conversion Disease of sebaceous glands 06/29/2023 Overview: Created by Conversion Replacement Utility updated for latest IMO load Created by Conversion Replacement Utility updated for latest IMO load Hemangioma of skin and subcutaneous tissue 06/28 Overview: Created by Conversion Atherosclerosis of coronary artery 06/29/2023 Overview: LAD 7/, Mid-Distal RCA 6/07Negative Nuclear Study 06/24/10 Created by Conversion [facility] Annotation: Mar 17 2007 12:01PM - Onesimo Bruno: PCI Proximal LAD 7/, Mid-Distal RCA 6/07Negative Nuclear Study 06/24/10 Replacement Utility updated for latest IMO load Actinic keratosis 06/29/2023 Overview: Created by Conversion Allergic rhinitis 06/29/2023 Overview: Created by Conversion Replacement Utility updated for latest IMO load Anemia 06/29/2023 Overview: Created by Conversion Moderate persistent asthma without complication 09/16/2022 Nocturnal sleep-related eating disorder 04/16/19 23 Urinary urgency 04/16/2021 Slowing of urinary stream 04/16/2021 Primary erectile dysfunction 04/16/2021 Morbid obesity 01/17/2020 Overview: Last Assessment & Plan: 71 year old [...] he has some opportunity with both life advisor and dietitian from his previous encounter with comprehensive weight management). If semaglutide is not covered, I would check with the patient's auto body repairer and see if she could justify an SGLT2 inhibitor. The patient tells me that in general his voiding is quite normal. I believe he could tolerate this medication, realize a reduction in overall heart disease risk and potentially lose some weight. I have asked the patient to schedule follow-up appointment in a couple of months to review progress towards nutritional/weight goals. 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 BP controlled. Central obesity is increasing. Waist previously was 44 inch (in clothing). Now in 40 inch (clothing) - continue meal plan. Consider recheck of labs at future visit or defer to primary. Last Assessment & Plan: Cravings controlled. BP controlled. Central obesity is increasing. Waist previously was 44 inch (in clothing). Now in 40 inch (clothing) - continue meal plan. Consider recheck of labs at future visit or defer to primary. Avitaminosis D 01/21/2017 Major neurocognitive disorde r, due to traumatic brain injury, with behavioral disturbance, moderate 05/19/2016 Bipolar affective disorder, currently depressed, moderate 04/26/2016 Bilateral pulmonary embolism 02/17/2016 Edema 04/30/2014 Overview: Last Assessment & Plan: Discussed compression. Anticipate that he will do well as he continues with compression and increased movement. 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, sequela 05/19/2016 05/19/2016 Encounters Date Type Department Care Team Description 08/16/2023 10:15 AM CDT Telemedicine [facility] [address] [place] [address] Josh Samayoa PsyD, LP Individual Therapy 07/19/2023 10:15 AM CDT Telemedicine [facility] [address] [place] [address] Josh Samayoa PsyD, LP Individual Therapy; Trmt Plan 07/19/2023 Travel 07/13/2023 1:30 PM CDT - 07/13/2023 11:59 PM CDT Hospital Encounter [facility] [address] [place] [address] Onesimo Bruno MD DOE (dyspnea on exertion) 07/13/2023 Travel 07/08/2023 1:16 PM CDT - 07/08/2023 11:59 PM CDT Hospital Encounter [facility] [address] [place] [address] [place], Onesimo W, MD NAVAS (dyspnea on exertion) 07/08/2023 Travel 07/06/2023 1:25 PM CDT - 07/06/2023 11:59 PM CDT Hospital Encounter [facility] [address] [facility] [place] [address] Onesimo Bruno MD NAVAS (dyspnea on exertion) 07/06/2023 Travel 07/01/2023 12:48 PM CDT - 07/01/2023 11:59 PM CDT Hospital Encounter [facility] [address] [place] [address] Onesimo Bruno MD NAVAS (dyspnea on exertion) 07/01/2023 Travel 06/29/2023 2:13 PM CDT - 06/29/2023 4:12 PM CDT Emergency [facility] [address] [place] [address] Mich Calderon PA Cough, unspecified type (Primary Dx); Shortness of breath; Anticoagulated; History of asthma Discharge Disposition: Home Self Care 06/29/2023 1:30 PM CDT - 06/29/2023 2:12 PM CDT Hospital Encounter [facility] [address] [place] [address] Onesimo Bruno MD NAVAS (dyspnea on exertion) 06/29/2023 Travel 06/27/2023 1:24 PM CDT - 06/27/2023 11:59 PM CDT Hospital Encounter [facility] [address] [place] [address] Onesimo Bruno MD NAVAS (dyspnea on exertion) 06/27/2023 Travel 06/24/2023 1:26 PM CDT - 06/24/2023 11:59 PM CDT Hospital Encounter [facility] [address] [place] [address] Onesimo Bruno MD NAVAS (dyspnea on exertion) 06/24/2023 Travel 06/22/2023 1:16 PM CDT - 06/22/2023 11:59 PM CDT Hospital Encounter [facility] [address] [place] [address] Onesimo Bruno MD NAVAS (dyspnea on exertion) 06/22/2023 Travel 06/20/2023 1:30 PM CDT - 06/20/2023 11:59 PM CDT Hospital Encounter [facility] [address] [place] [address] Onesimo Bruno MD NAVAS (dyspnea on exertion) 06/20/2023 Travel 06/15/2023 3:15 PM CDT Telemedicine [facility] [address] [facility] [address] [place] [address] Josh Samayoa, Germain, LP Individual Therapy; Trmt Plan 06/15/2023 1:19 PM CDT - 06/15/2023 11:59 PM CDT Hospital Encounter [facility] [address] [place] [address] Onesimo Bruno MD NAVAS (dyspnea on exertion) 06/14/2023 Travel 06/13/2023 1:26 PM CDT - 06/13/2023 11:59 PM CDT Hospital Encounter [facility] [address] [place] [address] Onesimo Bruno MD NAVAS (dyspnea on exertion) 06/13/2023 Travel from Last 3 Months Immunizations Name Administration Dates Next Due COVID-19 vaccine (Moderna 50mcg/0.5mL) 12YO+ BIVALENT PF, MDV 09/24/2022,11/24/2021 Covid-19 Vaccine (Unspecified) 08/14/2020 DT (Age < 7 years) 02/14/2003 Hepatitis A (Adult) 11/19/2008 Hepatitis A, Unspecified 11/19/2008 Influenza A (H1N1), Inactivated 02/12/2009,01/02,12/25/2008 Influenza RIV4 (Age 18+ Year s) PRESERV FREE 11/16/2017 Influenza Virus, Unspecified 10/15/2020, 12/31/2009,11/18/2008,2007,11/23/2007 Influenza, High-dose Inactivated 12/21/2018 Influenza, High-dose Quadriv alent Inactivated 12/08/2022,11/24/2021,11/04/2020,2019 Influenza, IIV3 (Age 6-35 mos) 10/24/2012 Influenza, IIV3 (Age >=3 years) 02/15/19 13,12/31/2009,11/18/2008,2007,11/23/2007 Influenza, IIV4 11/19/2016,02/19/2016 Pneumococcal Poly,23-Valent (Pneumovax) 12/15/2020,12/21/2018,12/31/2009 Pneumococcal conj 13-Valent (Prevnar 13) 12/15/2018,03/22/2018 Rsv Unspecified Unknown Dose Vaccine 01/14/2023 TD, UNSPECIFIED 02/14/2003 Td (Age >=7 Years) 02/14/2003 Tdap 09/24/2022,08/19/2011,11/19/2008 Zoster (Shingrix-RZV, recombinant) 02/19/2020, Zoster (Zostavax-ZVL, live) 08/28/2013 Social History Tobacco Use Types Packs/Day Years Used Date Smoking Tobacco: Never Smokeless Tobacco: Never PHQ-2 Answer Date Recorded PHQ-2 TOTAL SCORE 1 07/14/2023 Social Connections Answer Date Recorded Frequency of [...] Sign Reading Time Taken Comments Blood Pressure 136/97 06/29/2023 2:19 PM CDT Pulse 91 06/29/2023 2:19 PM CDT Temperature 36.2 ??C (97.2 ??F) 06/29/2023 2:19 PM CD T Respiratory Rate 20 06/29/2023 2:19 PM CDT Oxygen Saturation 97% 06/29/2023 2:19 PM CDT Inhaled Oxygen Concentration - - Weight 137.9 kg (304 lb) 06/29/2023 2:19 PM CDT Height 182.9 cm (6') 06/29/2023 2:19 PM CDT Body Mass Index 41.23 06/29/2023 2:19 PM CDT Plan of Treatment Upcoming Encounters Date Type Department Care Team (Late st Contact Info) Description 09/20/2023 10:15 AM CDT Telemedicine [facility] [address] [place] [address] Josh Samayoa, Germain, LP [address] [place] [address] Health Maintenance Due Date Last Done Comments Hepatitis C screening for ag e 18-79 1970 Colonoscopy through age 75 1997 Lipids for age 45-75 1997 Medicare Wellness for age 65+ 2017 BMI (ht and wt on same day) for age 18+ 08/24/2022 08/24/2021, 03/11/2020, 09/20/2018, Additional history exists COVID-19 vaccine series ( season) 2023 12/08/2022, 09/24/2022, 11/24/2021, Additional history exists Influenza for age 65+ 10/16/2023 12/08/2022 , 11/24/2021, 11/04/2020, Additional history exists Depression screening for age 12+ 07/12/2024 07/13/2023, 01/28/2023, 01/25/2023, Additional history exists Tetanus booster 09/24/2032 09/24/2022, 07/06/2011, 11/19/2008, Additional history exists Zoster (shingles) series for age 50+ Completed 02/19/2020, 11/26/2019, 08/28/2013 Pneumococcal series for age 65+ Completed 12/15/2020, 12/21/2018, 12/15/2018, Additional history exists Tdap Completed 09/24/2022, 07/0 06/2011, 11/19/2008 Procedures Procedure Name Priority Date/Time Associated Diagnosis Comments SCAN-CARDIAC REHABILITATION 07/13/2023 1:48 PM CDT SCAN-CARDIAC REHABILITATION 07/08/2023 1:24 PM CDT SCAN-CARDIAC REHABILITATION 07/06/2023 1:32 PM CDT SCAN-CARDIAC REHABILITATION 07/01/2023 1:34 PM CDT XR CHEST 1 VIEW PORTABLE STAT 06/29/2023 2:54 PM CDT SCAN-CARDIAC REHABILITATION 06/29/2023 1:34 PM CDT SCAN-CARDIAC REHABILITATION 06/27/2023 1:28 PM CDT SCAN-CARDIAC REHABILITATION 06/24/2023 1:33 PM CDT SCAN-CARDIAC REHABILITATION 06/22/2023 1:27 PM CDT SCAN-CARDIAC REHABILITATION 06/20/2023 1:41 PM CDT SCAN-CARDIAC REHABILITATION 06/15/2023 1:31 PM CDT SCAN-CARDIAC REHABILITATION 06/13/2023 1:31 PM CDT from Last 3 Months Results * SCAN-CARDIAC REHABILITATION (07/13/2023 1:48 PM CDT) Only the most recent of11 resultswithin the time period is included. Scanner OTHER * XR CHEST 1 VIEW PORTABLE (06/29/2023 2:54 PM CDT) Anatomical Region Laterality Modality HEART, THORAX, CHEST Digital Rad iography 06/29/2023 3:21 PM CDT Addenda Addendum by Kushal Chapin MD on 06/29/2023 3:23 PM CDT For Patients: ??As a result of the Century Cures Act, medical imaging exams and procedure reports are released immediately into your electronic medical record. ??You may view this report before your referring provider. ?? If you have questions, please contact your health care provider. ADDENDUM: Please note the edit to the body of the report due to voice recognition software error highlighted in boldface type and all caps below: Lungs: Clinically insignificant thin uniform peripheral left basilar pleural-based BAND opacity consistent with nonspecific minor fibrosis or subsegmental atelectasis. Otherwise clear lungs. Dictated by Kushal Chapin MD @ 06/29/2023 3:22:58 PM (Electronically Signed) Impressions 06/29/2023 3:21 PM CDT No imaging findings pertinent to the indication for the exam or significant unrelated findings. Incidental finding described in the body of the report. Dictated by Kushal Chapin MD @ Jun 29 2023 ??3:21PM (Electronically Signed) [email or web address] Narrative 06/29/2023 3:21 PM CDT For Patients: ??As a result of the Cures Act, medical imaging exams and procedure reports are released immediately into your electronic medical record. ??You may view this report before your referring provider. ??If you have questions, please contact your health care provider. INDICATION: Shortness of breath. COMPARISON: None available. TECHNIQUE: 1 view. ?? FINDINGS: [employer]. Medical Devices: None. Lung Volumes: Adequate inspiration. No significant atelectasis. Lungs: Clinically insignificant thin uniform peripheral left basilar pleural- based patchy opacity consistent with nonspecific minor fibrosis or subsegmental atelectasis. Otherwise clear lungs. Pleura and Pleural spaces: No significant pleural effusion. No pneumothorax. Mediastinum: Normal cardiomediastinal silhouette. Bony Thorax and Soft Tissues: No significant incidental findings. Procedure Note Kushal Chapin MD - 06/29/2023 For Patients: As a result of the Cures Act, medical imagingexams and procedure reports are released immediately into your electronicmedical record. You may view this report before your referring provider.If you have questions, please contact your health care provider. INDICATION: Shortness of breath. COMPARISON: None available. TECHNIQUE: 1 view. FINDINGS: Lordotic. Medical Devices: None. Lung Volumes: Adequate inspiration. No significant atelectasis. Lungs: Clinically insignificant thin uniform peripheral left basilarpleural- based patchy opacity consistent with nonspecific minor fibrosis orsubsegmental atelectasis. Otherwise clear lungs. Pleura and Pleural spaces: No significant pleural effusion. Nopneumothorax. Mediastinum: Normal cardiomediastinal silhouette. Bony Thorax and Soft Tissues: No significant incidental findings. IMPRESSION: No imaging findings pertinent to the indication for the exam orsignificant unrelated findings. Incidental finding described in the bodyof the report. Dictated by Kushal Chapin MD @ Jun 29 2023 3:21PM (Electronically Signed) [email or web address] [facility] from Last 3 Months Care Teams Metal Bonding Helper Relationship Specialty Start Date End Date Onesimo Bruno MD [address] [place] [address] PCP - General Internal Medicine 11/11/14 Josh Samayoa PsyD, LP [address] [place] [address] Psychology 06/15/22
--- OUTSIDE RECORDS SUMMARY | 2023-09-06 13:52 | XMS_ITS | Encounter Summary ---
Author Organization [facility] Address [address] [place] [address] Care Team Providers Care Etcher Photoengraving Name Role Phone Onesimo Bruno MD Primary Care Provider [phone] Bhavna Mac PharmD Unavailable [phone] Isaac Bro RN Unavailable [phone] Ilda Tapia CHW Unavailable [phone] Onesimo Bruno MD Unavailable [phone] Manuel Calderon MD, Jon Unavailable [phone] Nataliia Gomez MD Unavailable Luly Grant MD Unavailable [phone] Rafita Ayers MD Unavailable [phone] Flo Henry MD Unavailable [phone] Susan Robert CHW Unavailable Unavailable Jana Vick CHW Unavailable UnavailTor Brown DPM Unavailable [phone] Lorri Larsen MD Unavailable [phone] Lorri Larsen MD Unavailable [phone] Rafita Ayers MD Unavailable [phone] Kaelyn New Unavailable [phone] Marino Hayes MD Unavailable [phone] Marino Hayes MD Unavailable [phone] Nataliia Gomez MD Unavailable Reason for Visit * Reason Comments Clinic Care Coordination - Follow-up Encounter Details Date Type Department Care Team (Latest Contact Info) Description 08/06/2020 Communication - [facility] [address] [place] [phone] Isaac Bro, RN Clinic Care Coordination - [...] concerns. Provided Cordell with telephone number for [facility] to schedule patient's CT colonoscopy. Investigation Division Captain also provided patient with the phone number to [facility] to schedule patient's follow up appointment. [...] like to see someone before November. Contacted [facility] and learned that Dr. JOHN Ji is not taking new patients at this time and Dr. Trevor Drummond is not longer practicing at [facility]. Patient was informed of this. Patient and Cordell were provided with the phone number for [facility] scheduling as there are other psychiatrists there [...] work with the weight loss Clinic in [facility]. Intervention/Education provided during outreach: Discussed the importance of taking his medicationsdaily as directed. Encouraged patient to be evaluated at Urgent Care related to ongoing persistent cough and fatigue. Outreach Frequency: monthly Plan: CCC RN will continue to monitor, support patient with current goal and will be available to assist as nursing needs arise. Senior Marketing Data Analyst will follow up in two weeks. documented in this encounter Plan of Treatment Upcoming Encounters Date Type Department Care Team (Late st Contact Info) Description 09/26/2023 11:40 AM CDT Office Visit [facility] [address] [place] [phone] Onesimo Bruno MD [address] [place] [address] 11/24/2023 1:20 PM CDT Virtual Visit [facility] Neurology [address] [phone] Flo Henry MD [address] [place] [address] documented as of this encounter Visit Diagnoses Not on filedocumented in this encounter Additional Health Concerns Assessment Noted Time PHQ-9 Depression Total Score: 14 022 10:49 AM [employer]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 documented as of this encounter Care Teams Etcher Photoengraving Relationship Specialty Start Date End Date Onesimo Bruno MD PCP - General 08/11/06 Bhavna Mac, GenesisD [address] [place] [address] Pharmacist Pharmacist 07/11/18 Isaac Bro, RN Lead Senior Marketing Data Analyst Primary Care - CC 09/01/18 Ilda Tapia Vaibhav Community Health Worker Primary Care - CC 09/01/1804/22 Onesimo Bruno MD [address] [facility] [place] [address] Assigned PCP 07/30/20 Florentino Jackson MD [facility] [address] [place] [address] [address] [facility] [address] [place] [address] Assigned Surgical Provider 08/29/20 09/27/20 Nataliia Gomez MD [address] [facility], [address] [place] [address] Assigned Heart and Vascular Provider 08/29/20 10/08/22 Luly Grant MD [address] [facility] [address] [place] [address] Assigned Allergy Provider 08/29/20 04/16/22 Rafita Ayers MD [address] [place] [address] Assigned Pulmonology Provider 10/12/20 06/06/23 Flo Henry MD [address] [address] Assigned Behavioral Health Provider 09/21/20 Susan Robert, W Community Health Worker Primary Care - CC 04/23/2106/15/21 Jana Vick, W Community Health Worker Primary Care - CC 06/08/21 Tor Joseph DPM [address] [place] [address] Assigned Musculoskeletal Provider 07/05/21 03/19/22 Lorri Larsen MD [address] [place] [address] Otolaryngology 07/21/21 Lorri Larsen MD [address] [place] [address] Assigned Surgical Provider 10/10/21 04/28/23 Rafita Ayers MD [address] [place] [address] Critical Care 11/30/21 Kaelyn New AuD [address] [place] [address] Single Needle Tufting Machine Operator Audiology 12/09/21 Marino Hayes MD [address] [place] [address] Cardiovascular Disease 09/28/22 Marino Hayes MD [address] [place] [address] Assigned Heart and Vascular Provider 10/09/22 06/06/23 Nataliia Gomez MD [address] [place] [address], [address] [place] [address] Assigned Heart and Vascular Provider 06/07/23 documented as of this encounter
--- OUTSIDE RECORDS SUMMARY | 2023-09-06 13:52 | XMS_ITS | Encounter Summary ---
Author Organization [place] Address [address] [place] [address] Care Team Providers Care Family Day Care Worker Name Role Phone Onesimo Bruno MD Primary Care Provider [phone] Bhavna Mac PharmD Unavailable +[phone] Isaac Bro RN Unavailable [phone] Ilda Tapia CHW Unavailable +[phone] Onesimo Bruno MD Unavailable +[phone] Manuel Calderon MD, Jon Unavailable +[phone] Nataliia Gomez MD Unavailable Luly Grant MD Unavailable +[phone] Rafita Ayers MD Unavailable +[phone] Flo Henry MD Unavailable +[phone] Susan Robert CHW Unavailable Unavailable Jana Vick CHW Unavailable UnavailTor Brown DPM Unavailable +[phone] Lorri Larsen MD Unavailable +[phone] Lorri Larsen MD Unavailable +[phone] Rafita Ayers MD Unavailable +[phone] Kaelyn New Unavailable +[phone] Marino Hayes MD Unavailable + [phone] Marino Hayes MD Unavailable +[phone] Nataliia Gomez MD Unavailable Reason for Visit * Reason Comments Clinic Care Coordination - Follow-up Encounter Details Date Type Department Care Team (Latest Contact Info) Description 08/01/2020 Communication - [facility] [address] [phone] Ilda Tapia CHW Clinic Care Coordination - [...] as of this encounter Progress Notes * lIda Kaye - 08/01/2020 11:06 AM CDT Patient spoke with CCC RN on 07/17 and discussed goals CHW delegations: CHW will continue to support patient with goals through routine scheduled outreach. Next outreach due: 08/14/20 documented in this encounter Plan of Treatment Upcoming Encounters Date Type Department Care Team (Late st Contact Info) Description 09/26/2023 11:40 AM CDT Office Visit [address] [phone] Onesimo Bruno MD [address] [place] [address] 11/24/2023 1:20 PM CDT Virtual Visit [facility] Neurology [address] [phone] Flo Henry MD 1875 [facility] [address] [place] [address] documented as of this encounter Visit Diagnoses Not on filedocumented in this encounter Additional Health Concerns Assessment Noted Time PHQ-9 Depression Total Score: 14 022 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 documented as of this encounter Care Teams Family Day Care Worker Relationship Specialty Start Date End Date Onesimo Bruno MD PCP - General 08/11/06 Bhavna Mac, GenesisD 870 [place] [address] Pharmacist Pharmacist 07/11/18 Isaac Bro, RN Lead Stitch Wheeler Primary Care - CC 09/01/18 Ilda Tapia [facility] Community Health Worker Primary Care - CC 09/01/1804/22 Onesimo Bruno MD 1390 [place] [address] Assigned PCP 07/30/20 Florentino Jackson MD [facility] [address] [place] [address] 602 [place] [address] Assigned Surgical Provider 08/29/20 09/27/20 Nataliia Gomez MD 1600 [facility], [address] [place], [place] [address] Assigned Heart and Vascular Provider 08/29/20 10/08/22 Luly Grant MD [facility] [address] [place], [place] [phone] Assigned Allergy Provider 08/29/20 04/16/22 Rafita Ayers MD [address] [place] [address] Assigned Pulmonology Provider 10/12/20 06/06/23 Flo Henry MD [address] [phone] Assigned Behavioral Health Provider 09/21/20 Susan Robert, W Community Health Worker Primary Care - CC 04/23/2106/15/21 Jana Vick, W Community Health Worker Primary Care - CC 06/08/21 oTr Joseph DPM 2945 [facility] [address] [place] [address] Assigned Musculoskeletal Provider 07/05/21 03/19/22 Lorri Larsen MD [address] [place] [address] Otolaryngology 07/21/21 Lorri Larsen MD [address] [place] [address] Assigned Surgical Provider 10/10/21 04/28/23 Rafita Ayers MD [address] [place] [address] Critical Care 11/30/21 Kaelyn New AuD 1825 [place] [address] Spinning Machine Tender Audiology 12/09/21 Marino Hayes MD 6 [place] [address] Cardiovascular Disease 09/28/22 Marino Hayes MD 516 [place] [address] Assigned Heart and Vascular Provider 10/09/22 06/06/23 Nataliia Gomez MD [address] [place] [address], [address] [place] [address] Assigned Heart and Vascular Provider 06/07/23 documented as of this encounter
--- OUTSIDE RECORDS SUMMARY | 2023-09-06 13:52 | XMS_ITS | Encounter Summary ---
Author Organization [place] Address [address] [place] [address] Care Team Providers Care Broke Beater Name Role Phone Onesimo Bruno MD Primary Care Provider [phone] Bhavna Mac PharmD Unavailable +[phone] Isaac Bro RN Unavailable [phone] Ilda Tapia CHW Unavailable +[phone] Onesimo Bruno MD Unavailable +[phone] Manuel Calderon MD, Jon Unavailable +[phone] Nataliia Gomez MD Unavailable Luly Grant MD Unavailable +[phone] Rafita Ayers MD Unavailable +[phone] Flo Henry MD Unavailable +[phone] Susan Robert CHW Unavailable Unavailable Jana Vick CHW Unavailable UnavailTor Brown DPM Unavailable +[phone] Lorri Larsen MD Unavailable +[phone] Lorri Larsen MD Unavailable +[phone] Rafita Ayers MD Unavailable +[phone] Kaelyn New Unavailable +[phone] Marino Hayes MD Unavailable + [phone] Marino Hayes MD Unavailable Nataliia Gomez MD [...] Description 09/26/2023 11:40 AM CDT Office Visit [address] [phone] [place] [address] [place] [address] 11/24/2023 1:20 PM CDT Virtual Visit [facility] Neurology [address] [phone] Flo Henry MD [address] [place] [phone] documented as of this encounter Visit Diagnoses Not on filedocumented in this encounter Additional Health Concerns Assessment Noted Time PHQ-9 Depression Total Score: 3 03/03/19 22 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 documented as of this encounter Care Teams Broke Beater Relationship Specialty Start Date End Date Onesimo Bruno MD PCP - General 08/11/06 Bhavna Mac, GenesisD 870 [place] [address] Pharmacist Pharmacist 07/11/18 Isaac Bro, RN Lead Forestry Instructor Primary Care - CC 09/01/18 Ilda Tapia CHW Community Health Worker Primary Care - CC 09/01/1804/22 Onesimo Bruno MD 1390 [place] [address] Assigned PCP 07/30/20 Florentino Jackson MD [facility] 347 [facility] 602 [place] [address] Assigned Surgical Provider 08/29/20 09/27/20 Nataliia Gomez MD 1600 [facility], [address] [place] [address] Assigned Heart and Vascular Provider 08/29/20 10/08/22 Luly Grant MD 1655 [facility] [address] [place], [place] [phone] Assigned Allergy Provider 08/29/20 04/16/22 Rafita Ayers MD 909 [place] [address] Assigned Pulmonology Provider 10/12/20 06/06/23 Flo Henry MD 1875 [facility] [address] [place], [place] [phone] Assigned Behavioral Health Provider 09/21/20 Susan Robert CHW Community Health Worker Primary Care - CC 04/23/2106/15/21 Jana Vick CHW Community Health Worker Primary Care - CC 06/08/21 Tor Joseph DPM 2945 [facility] [address] [place] [address] Assigned Musculoskeletal Provider 07/05/21 03/19/22 Lorri Larsen MD [address] [place] [address] Otolaryngology 07/21/21 Lorri Larsen MD [address] [place] [address] Assigned Surgical Provider 10/10/21 04/28/23 Rafita Ayers MD [address] [place] [address] Critical Care 11/30/21 Kaelyn New, Shena [address] [place] [address] Commercial Lines Insurance Agent Audiology 12/09/21 Marino Hayes MD [address] [place] [address] Cardiovascular Disease 09/28/22 Marino Hayes MD [address] [place] [address] Assigned Heart and Vascular Provider 10/09/22 06/06/23 Nataliia Gomez MD [address] [place] [address], [address] [place] [address] Assigned Heart and Vascular Provider 06/07/23 documented as of this encounter
--- OUTSIDE RECORDS SUMMARY | 2023-09-06 13:52 | XMS_ITS | Encounter Summary ---
Author Organization [place] Address [address] [place] [address] Care Team Providers Care Adult Remedial Education Instructor Name Role Phone Onesimo Bruno MD Primary Care Provider [phone] Bhavna Mac PharmD Unavailable +[phone] Isaac Bro RN Unavailable [phone] Ilda Tapia CHW Unavailable +[phone] Onesimo Bruno MD Unavailable [phone] Manuel Calderon MD, Jon Unavailable +[phone] Nataliia Gomez MD Unavailable Luly Grant MD Unavailable +[phone] Rafita Ayers MD Unavailable +[phone] Flo Henry MD Unavailable +[phone] Susan Robert CHW Unavailable Unavailable Jana Vick CHW Unavailable UnavailTor Brown DPM Unavailable +[phone] Lorri Larsen MD Unavailable +[phone] Lorri Larsen MD Unavailable +[phone] Rafita Ayers MD Unavailable +[phone] Kaelyn New Unavailable +[phone] Marino Hayes MD Unavailable + [phone] Marino Hayes MD Unavailable Nataliia Gomez MD [...] Description 09/26/2023 11:40 AM CDT Office Visit [facility] [address] [place] [phone] Onesimo Bruno MD 1390 [place] [address] 11/24/2023 1:20 PM CDT Virtual Visit [facility] Neurology [address] [phone] Flo Henry MD [address] [place] [phone] documented as of this encounter Visit Diagnoses Not on filedocumented in this encounter Additional Health Concerns Assessment Noted Time PHQ-9 Depression Total Score: 8 06/21/19 19 2:31 PM CDT documented as of this encounter Care Teams Adult Remedial Education Instructor Relationship Specialty Start Date End Date Onesimo Bruno MD PCP - General 08/11/06 Bhavna Mac, GenesisD 870 [place] [address] Pharmacist Pharmacist 07/11/18 Isaac Bro, RN Lead Chargeback Specialist Primary Care - CC 09/01/18 Ilda Tapia CHW Community Health Worker Primary Care - CC 09/01/1804/22 Onesimo Bruno MD 1390 [place] [address] Assigned PCP 07/30/20 Florentino Jackson MD [facility] 347 [facility] 602 [place] [address] Assigned Surgical Provider 08/29/20 09/27/20 Natlaiia Gomez MD 1600 [facility], [address] [place] [address] Assigned Heart and Vascular Provider 08/29/20 10/08/22 Luly Grant MD 1655 [facility] [address] [place], [place] [phone] Assigned Allergy Provider 08/29/20 04/16/22 Rafita Ayers MD 909 [place] [address] Assigned Pulmonology Provider 10/12/20 06/06/23 Flo Henry MD 1875 [facility] [address] [place], [place] [phone] Assigned Behavioral Health Provider 09/21/20 Susan Robert CHW Community Health Worker Primary Care - CC 04/23/2106/15/21 Jana Vick CHW Community Health Worker Primary Care - CC 06/08/21 Tor Joseph DPM 2945 [facility] [address] [place] [address] Assigned Musculoskeletal Provider 07/05/21 03/19/22 Lorri Larsen MD [address] [place] [address] Otolaryngology 07/21/21 Lorri Larsen MD [address] [place] [address] Assigned Surgical Provider 10/10/21 04/28/23 Rafita Ayers MD [address] [place] [address] Critical Care 11/30/21 Kaelyn New, Shena [address] [place] [address] Vehicle And Equipment Cleaner Audiology 12/09/21 Marino Hayes MD [address] [place] [address] Cardiovascular Disease 09/28/22 Marino Hayes MD [address] [place] [address] Assigned Heart and Vascular Provider 10/09/22 06/06/23 Nataliia Gomez MD [address] [place] [address], [address] [place] [address] Assigned Heart and Vascular Provider 06/07/23 documented as of this encounter
--- OUTSIDE RECORDS SUMMARY | 2023-09-06 13:52 | XMS_ITS | Encounter Summary ---
Author Organization [place] Address [address] [place] [address] Care Team Providers Care Learning And Development Associate Name Role Phone Onesimo Bruno MD Primary Care Provider [phone] Bhavna Mac PharmD Unavailable +[phone] Isaac Bro RN Unavailable [phone] Ilda Tapia CHW Unavailable +[phone] Oneismo Bruno MD Unavailable +[phone] Manuel Calderon MD, Jon Unavailable +[phone] Nataliia Gomez MD Unavailable Luly Grant MD Unavailable +[phone] Rafita Ayers MD Unavailable +[phone] Flo Henry MD Unavailable +[phone] Susan Robert CHW Unavailable Unavailable Jana Vick CHW Unavailable UnavailTor Brown DPM Unavailable +[phone] Lorri Larsen MD Unavailable +[phone] Lorri Larsen MD Unavailable +[phone] Rafita Ayers MD Unavailable +[phone] Kaelyn New Unavailable +[phone] Marino Hayes MD Unavailable + [phone] Marino Hayes MD Unavailable [phone] Nataliia Gomez MD Unavailable Encounter Details Date Type Department Care Team (Late st Contact Info) Description 07/15/2020 External Order Results [facility] [address] [place] [address] Outside, Provider Social History Tobacco Use Types [...] Description 09/26/2023 11:40 AM CDT Office Visit [facility] [address] [place] [phone] [place] [address] [place] [address] 11/24/2023 1:20 PM CDT Virtual Visit [facility] Neurology Clinic [address] [phone] Flo Henry MD [address] [place] [phone] documented as of this encounter Procedures Procedure [...] CDT Verified by Sandeep Nation on 09/10/2020. [facility] LAB/HIC [address] [facility] * [place] [address] Verified by Sandeep Nation on 09/10/2020. 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 Care Teams Learning And Development Associate Relationship Specialty Start Date End Date Onesimo Bruno MD PCP - General 08/11/06 Bhavna Mac, PharmD 870 [place] [address] Pharmacist Pharmacist 07/11/18 Isaac Bro, RN Lead Corporate Safety Director Primary Care - CC 09/01/18 Ilda Tapia CHW Community Health Worker Primary Care - CC 09/01/1804/22 Onesimo Bruno MD 1390 [place] [address] Assigned PCP 07/30/20 Florentino Jackson MD [facility] [address] [place] [address] 602 [place] [address] Assigned Surgical Provider 08/29/20 09/27/20 Nataliia Gomez MD 1600 [facility], [address] [place] [address] Assigned Heart and Vascular Provider 08/29/20 10/08/22 Luly Grant MD [address] [facility] [address] [place], [place] [phone] Assigned Allergy Provider 08/29/20 04/16/22 Rafita Ayers MD [address] [place] [address] 464535 Assigned Pulmonology Provider 10/12/20 06/06/23 Flo Henry MD [facility] [address] [phone] Assigned Behavioral Health Provider 09/21/20 Susan Robert CHW Community Health Worker Primary Care - CC 04/23/2106/15/21 Jana Vick CHW Community Health Worker Primary Care - CC 06/08/21 Tor Joseph DPM [facility]5 [facility] [address] [place] [address] Assigned Musculoskeletal Provider 07/05/21 03/19/22 Lorri Larsen MD [address] [place] [address] Otolaryngology 07/21/21 Lorri Larsen MD [address] [place] [address] Assigned Surgical Provider 10/10/21 04/28/23 Rafita Aeyrs MD 909 [place] [address] Critical Care 11/30/21 Kaelyn New AuD 1825 [place] [address] Child Health Associate Audiology 12/09/21 Marino Hayes MD [address] [place] [address] Cardiovascular Disease 09/28/22 Marino Hayes MD [address] [place] [address] Assigned Heart and Vascular Provider 10/09/22 06/06/23 Nataliia Gomez MD [address] [place] [address], [address] [place] [address] Assigned Heart and Vascular Provider 06/07/23 documented as of this encounter
--- OUTSIDE RECORDS SUMMARY | 2023-09-06 13:52 | XMS_ITS | Encounter Summary ---
Author Organization [place] Address [address] [place] [address] Care Team Providers Care Parliamentary Librarian Name Role Phone Onesimo Bruno MD Primary Care Provider [phone] Bhavna Mac PharmD Unavailable +[phone] Isaac Bro RN Unavailable [phone] Ilda Tapia CHW Unavailable +[phone] Onesimo Bruno MD Unavailable [phone] Manuel Calderon MD, Jon Unavailable +[phone] Nataliia Gomez MD Unavailable Luly Grant MD Unavailable +[phone] Rafita Ayers MD Unavailable +[phone] Flo Henry MD Unavailable +[phone] Susan Robert CHW Unavailable Unavailable Jana Vick CHW Unavailable UnavailTor Brown DPM Unavailable +[phone] Lorri Larsen MD Unavailable +[phone] Lorri Larsen MD Unavailable +[phone] Rafita Ayers MD Unavailable +[phone] Kaelyn New Unavailable +[phone] Marino Hayes MD Unavailable + [phone] Marino Hayes MD Unavailable Nataliia Gomez MD [...] Description 09/26/2023 11:40 AM CDT Office Visit [facility] [address] [place] [address] [phone] Onesimo Bruno MD 1390 [place] [address] 11/24/2023 1:20 PM CDT Virtual Visit [facility] Neurology [address] [phone] Flo Henry MD [address] [place] [address] [phone] documented as of this encounter Visit Diagnoses Not on filedocumented in this encounter Additional Health Concerns Assessment Noted Time PHQ-9 Depression Total Score: 7 03/03/19 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 documented as of this encounter Care Teams Parliamentary Librarian Relationship Specialty Start Date End Date Onesimo Bruno MD PCP - General 08/11/06 Bhavna Mac, GenesisD 870 [place] [address] Pharmacist Pharmacist 07/11/18 Isaac Bro, RN Lead Behavior Interventionist Primary Care - CC 09/01/18 Ilda Tapia CHW Community Health Worker Primary Care - CC 09/01/1804/22 Onesimo Bruno MD 1390 [place] [address] Assigned PCP 07/30/20 Florentino Jackson MD [facility] 347 [facility] 602 [place] [address] Assigned Surgical Provider 08/29/20 09/27/20 Nataliia Gomez MD 1600 [facility], [address] [place] [address] Assigned Heart and Vascular Provider 08/29/20 10/08/22 Luly Grant MD 1655 [facility] [address] [place], [place] [phone] Assigned Allergy Provider 08/29/20 04/16/22 Rafita Ayers MD 909 [place] [address] Assigned Pulmonology Provider 10/12/20 06/06/23 Flo Henry MD 1875 [facility] [address] [place], [place] [phone] Assigned Behavioral Health Provider 09/21/20 Susan Robert, ELISA Community Health Worker Primary Care - CC 04/23/2106/15/21 Jana Vick CHW Community Health Worker Primary Care - CC 06/08/21 Tor Joseph DPM 2945 [facility] [address] [place] [address] Assigned Musculoskeletal Provider 07/05/21 03/19/22 Lorri Larsen MD [address] [place] [address] Otolaryngology 07/21/21 Lorri Larsen MD [address] [place] [address] Assigned Surgical Provider 10/10/21 04/28/23 Rafita Ayers MD [address] [place] [address] Critical Care 11/30/21 Kaelyn New, Shena [address] [place] [address] Mate Fishing Vessel Audiology 12/09/21 Marino Hayes MD [address] [place] [address] Cardiovascular Disease 09/28/22 Marino Hayes MD [address] [place] [address] Assigned Heart and Vascular Provider 10/09/22 06/06/23 Nataliia Gomez MD [address] [place] [address], [address] [place] [address] Assigned Heart and Vascular Provider 06/07/23 documented as of this encounter
--- OUTSIDE RECORDS SUMMARY | 2023-09-06 13:52 | XMS_ITS | Encounter Summary ---
Author Organization [place] Address [address] [place] [address] Care Team Providers Care Inspector Tester Sorter Name Role Phone Onesimo Bruno MD Primary Care Provider [phone] Bhavna Mac PharmD Unavailable +[phone] Isaac Bro RN Unavailable [phone] Ilda Tapia CHW Unavailable +[phone] Onesimo Bruno MD Unavailable [phone] Manuel Calderon MD, Jon Unavailable +[phone] Nataliia Gomez MD Unavailable Luly Grant MD Unavailable +[phone] Rafita Ayesr MD Unavailable +[phone] Flo Henry MD Unavailable +[phone] Susan Robert CHW Unavailable Unavailable Jana Vick CHW Unavailable UnavailTor Brown DPM Unavailable +[phone] Lorri Larsen MD Unavailable +[phone] Lorri Larsen MD Unavailable +[phone] Rafita Ayers MD Unavailable +[phone] Kaelyn New Unavailable +[phone] Marino Hayes MD Unavailable + [phone] Marino Hayes MD Unavailable Nataliia Gomez MD [...] Description 09/26/2023 11:40 AM CDT Office Visit [address] [phone] Onesimo Bruno MD 1390 [place] [address] 11/24/2023 1:20 PM CDT Virtual Visit [facility] Neurology [address] [phone] Flo Henry MD [address] [place] [phone] documented as of this encounter Visit Diagnoses Not on filedocumented in this encounter Additional Health Concerns Assessment Noted Time PHQ-9 Depression Total Score: 11 022 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 documented as of this encounter Care Teams Inspector Tester Sorter Relationship Specialty Start Date End Date Onesimo Bruno MD PCP - General 08/11/06 Bhavna Mac, GenesisD 870 [place] [address] Pharmacist Pharmacist 07/11/18 Isaac Bro, RN Lead Tunnel Man Primary Care - CC 09/01/18 Ilda Tapia CHW Community Health Worker Primary Care - CC 09/01/1804/22 Onesimo Bruno MD 1390 [place] [address] Assigned PCP 07/30/20 Florentino Jackson MD [facility] [address] [facility] 602 [place] [address] Assigned Surgical Provider 08/29/20 09/27/20 Nataliia Gomez MD 1600 [facility], [address] [place] [address] Assigned Heart and Vascular Provider 08/29/20 10/08/22 Luly Grant MD 1655 [facility] [address] [place], [place] [phone] Assigned Allergy Provider 08/29/20 04/16/22 Rafita Ayers MD 909 [place] [address] Assigned Pulmonology Provider 10/12/20 06/06/23 Flo Henry MD 1875 [facility] [address] [place], [place] [phone] Assigned Behavioral Health Provider 09/21/20 Susan Robert CHW Community Health Worker Primary Care - CC 04/23/2106/15/21 Jana Vick CHW Community Health Worker Primary Care - CC 06/08/21 Tor Joseph DPM 2945 [facility] [address] [place] [address] Assigned Musculoskeletal Provider 07/05/21 03/19/22 Lorri Larsen MD [address] [place] [address] Otolaryngology 07/21/21 Lorri Larsen MD [address] [place] [address] Assigned Surgical Provider 10/10/21 04/28/23 Rafita Ayers MD [address] [place] [address] Critical Care 11/30/21 Kaelyn New, Shena [address] [place] [address] Imcu Nurse Audiology 12/09/21 Marino Hayes MD [address] [place] [address] Cardiovascular Disease 09/28/22 Marino Hayes MD [address] [place] [address] Assigned Heart and Vascular Provider 10/09/22 06/06/23 Nataliia Gomez MD [address] [place] [address], [address] [place] [address] Assigned Heart and Vascular Provider 06/07/23 documented as of this encounter
--- OUTSIDE RECORDS SUMMARY | 2023-09-06 13:52 | XMS_ITS ---
Author Organization [place] Address [address] [place] [address] Care Team Providers Care Machine Silver Stripper Name Role Phone Onesimo Bruno MD Primary Care Provider [phone] Bhavna Mac PharmD Unavailable Isaac Bro RN Unavailable [phone] Onesimo Bruno MD Unavailable [phone] Flo Henry MD Unavailable Jana Vick Unavailable Unavailabl e Lorri Larsen MD Unavailable Rafita Ayers MD Unavailable Kaelyn New Unavailable +[phone] Marino Hayes MD Unavailable +[phone] Nataliia Gomez MD Unavailable Primary Care Care Coordination Status:Enrolled (Active) Start date:11/06/2019 Enrollment date:11/06/2019 Case Team Name Relationship Phone Isaac Bro RN Lead Dry Cans Operator(Responsib le Staff) [phone] Jana Vick CHW Community Health Worker Continued Care and Services Coordination
--- OUTSIDE RECORDS SUMMARY | 2023-09-06 13:52 | XMS_ITS | Encounter Summary ---
Author Organization [place] Address [address] [place] [address] Care Team Providers Care Certified Hyperbaric Technologist Name Role Phone Onesimo Bruno MD Primary Care Provider [phone] Bhavna Mac PharmD Unavailable [phone] Isaac Bro RN Unavailable [phone] Ilda Tapia CHW Unavailable [phone] Onesimo Bruno MD Unavailable [phone] Manuel Calderon MD, Jon Unavailable [phone] Nataliia Gomez MD Unavailable Luly Grant MD Unavailable [phone] Rafita Ayers MD Unavailable [phone] Flo Henry MD Unavailable [phone] Susan Robert CHW Unavailable Unavailable Jana Vick CHW Unavailable UnavailTor Brown DPM Unavailable +[phone] Lorri Larsen MD Unavailable [phone] oLrri Larsen MD Unavailable +[phone] Rafita Ayers MD Unavailable +[phone] Kaelyn New Unavailable [phone] Marino Hayes MD Unavailable + [phone] Marino Hayes MD Unavailable Nataliia Gomez MD [...] Description 09/26/2023 11:40 AM CDT Office Visit [address] [phone] Onesimo Bruno MD [address] [place] [address] 11/24/2023 1:20 PM CDT Virtual Visit [facility] Neurology [address] [phone] Flo Henry MD [address] [place] [phone] documented as of this encounter Visit Diagnoses Not on filedocumented in this encounter Care Teams Certified Hyperbaric Technologist Relationship Specialty Start Date End Date Onesimo Bruno MD PCP - General 08/11/06 Bhavna Mac, GenesisD [address] [place] [address] [phone] Pharmacist Pharmacist 07/11/18 Isaac Bro, RN Lead Data Center Operator Primary Care - CC 09/01/18 Ilda Tapia CHW Community Health Worker Primary Care - CC 09/01/1804/22 Onesimo Bruno MD [address] [place] [address] Assigned PCP 07/30/20 Florentino Jackson MD [facility] [address] [place] [address] 602 [place] [address] Assigned Surgical Provider 08/29/20 09/27/20 Nataliia Gomez MD [address] [facility], [address] [place] [address] Assigned Heart and Vascular Provider 08/29/20 10/08/22 [place] [address] [place] [address] [address] [place] [address] Assigned Allergy Provider 08/29/20 04/16/22 Rafita Ayers MD 909 [place] [address] Assigned Pulmonology Provider 10/12/20 06/06/23 Flo Henry MD 1875 [facility] [address] [place] [address] Assigned Behavioral Health Provider 09/21/20 Susan Robert, MORRISW Community Health Worker Primary Care - CC 04/23/2106/15/21 Jana Vick W Community Health Worker Primary Care - CC 06/08/21 Tor Joseph DPM 2945 [facility] [address] [place] [address] Assigned Musculoskeletal Provider 07/05/21 03/19/22 Lorri Larsen MD [address] [place] [address] Otolaryngology 07/21/21 Lorri Larsen MD [address] [place] [address] Assigned Surgical Provider 10/10/21 04/28/23 Rafita Ayers MD [address] [place] [address] Critical Care 11/30/21 Kaelyn New, [place] [address] [place] [address] Dry Cleaner Helper Audiology 12/09/21 Marino Hayes MD [address] [place] [address] Cardiovascular Disease 09/28/22 Marino Hayes MD [address] [place] [address] Assigned Heart and Vascular Provider 10/09/22 06/06/23 Nataliia Gomez MD [address] [facility], [address] [place] [address] Assigned Heart and Vascular Provider 06/07/23 documented as of this encounter
--- OUTSIDE RECORDS SUMMARY | 2023-09-06 13:52 | XMS_ITS | Encounter Summary ---
Author Organization [facility] Address [address] [place] [address] Care Team Providers Care Acquisition Cost Estimator Name Role Phone Onesimo Bruno MD Primary Care Provider [phone] Bhavna Mac PharmD Unavailable [phone] Isaac Bro RN Unavailable [phone] Ilda Tapia CHW Unavailable [phone] Onesimo Bruno MD Unavailable [phone] Manuel Calderon MD, Jon Unavailable [phone] Nataliia Gomez MD Unavailable Luly Grant MD Unavailable [phone] Rafita Ayers MD Unavailable [phone] Flo Henry MD Unavailable [phone] Susan Robert CHW Unavailable Unavailable Jana Vick CHW Unavailable UnavailTor Brown DPM Unavailable [phone] Lorri Larsen MD Unavailable [phone] Lorri Larsen MD Unavailable [phone] Rafita Ayers MD Unavailable [phone] Kaelyn New Unavailable [phone] Marino Hayes MD Unavailable + [phone] Marino Hayes MD Unavailable Nataliia Gomez MD [...] Description 09/26/2023 11:40 AM CDT Office Visit [address] [phone] Onesimo Bruno MD [address] [place] [address] 11/24/2023 1:20 PM CDT Virtual Visit [facility] Neurology [address] [phone] Flo Henry MD [address] [place] [address] [phone] documented as of this encounter Visit Diagnoses Not on filedocumented in this encounter Care Teams Acquisition Cost Estimator Relationship Specialty Start Date End Date Onesimo Bruno MD PCP - General 08/11/06 Bhavna Mac, GenesisD [address] [place] [address] [phone] Pharmacist Pharmacist 07/11/18 Isaac Bro, RN Lead Solar Sales Consultant Primary Care - CC 09/01/18 Ilda Tapia CHW Community Health Worker Primary Care - CC 09/01/1804/22 Onesimo Bruno MD 1390 [place] [address] Assigned PCP 07/30/20 Florentino Jackson MD [facility] [address] [place] [address] 602 [place] [address] Assigned Surgical Provider 08/29/20 09/27/20 Nataliia Gomez MD [address] [facility], [address] [place] [address] Assigned Heart and Vascular Provider 08/29/20 10/08/22 [place] [address] [place] [address] [address] [place] [address] Assigned Allergy Provider 08/29/20 04/16/22 Rafita Ayers MD 909 [place] [address] Assigned Pulmonology Provider 10/12/20 06/06/23 Flo Henry MD 1875 [facility] [address] [place] [address] Assigned Behavioral Health Provider 09/21/20 Susan Robert, MORRISW Community Health Worker Primary Care - CC 04/23/2106/15/21 Jana Vick W Community Health Worker Primary Care - CC 06/08/21 Tor Joseph DPM 2945 [facility] [address] [place] [address] Assigned Musculoskeletal Provider 07/05/21 03/19/22 Lorri Larsen MD [address] [place] [address] Otolaryngology 07/21/21 Lorri Larsen MD [address] [place] [address] Assigned Surgical Provider 10/10/21 04/28/23 Rafita Ayers MD [address] [place] [address] Critical Care 11/30/21 Kaelyn New, [place] [address] [place] [address] Mover Helper Audiology 12/09/21 Marino Hayes MD [address] [place] [address] Cardiovascular Disease 09/28/22 Marino Hayes MD [address] [place] [address] Assigned Heart and Vascular Provider 10/09/22 06/06/23 Nataliia Gomez MD [address] [facility], [address] [place] [address] Assigned Heart and Vascular Provider 06/07/23 documented as of this encounter
--- OUTSIDE RECORDS SUMMARY | 2023-09-06 13:52 | XMS_ITS | Encounter Summary ---
Author Organization [place] Address [address] [place] [address] Care Team Providers Care Law Office Receptionist Name Role Phone Onesimo Bruno MD Primary Care Provider [phone] Bhavna Mac PharmD Unavailable [phone] Isaac Bro RN Unavailable [phone] Ilda Tapia CHW Unavailable [phone] Onesimo Bruno MD Unavailable [phone] Manuel Calderon MD, Jon Unavailable [phone] Nataliia Gomez MD Unavailable Luly Grant MD Unavailable [phone] Rafita Ayers MD Unavailable [phone] Flo Henry MD Unavailable [phone] Susan Robert CHW Unavailable Unavailable Jana Vick CHW Unavailable UnavailTor Brown DPM Unavailable [phone] Lorri Larsen MD Unavailable [phone] Lorri Larsen MD Unavailable [phone] Rafita Ayers MD Unavailable [phone] Kaelyn New Unavailable [phone] Marino Hayse MD Unavailable + [phone] Marino Hayes MD Unavailable Nataliia Gomez MD [...] Description 09/26/2023 11:40 AM CDT Office Visit [facility] [address] [place] [phone] Onesimo Bruno MD 1390 [place] [address] 11/24/2023 1:20 PM CDT Virtual Visit [facility] Neurology [address] [phone] Flo Henry MD [address] [place] [address] [phone] documented as of this encounter Visit Diagnoses Not on filedocumented in this encounter Additional Health Concerns Assessment Noted Time PHQ-9 Depression Total Score: 8 06/21/19 19 2:31 PM CDT documented as of this encounter Care Teams Law Office Receptionist Relationship Specialty Start Date End Date Onesimo Bruno MD PCP - General 08/11/06 Bhavna Mac, GenesisD [address] [place] [address] Pharmacist Pharmacist 07/11/18 Isaac Bro, RN Lead Hand Mounter Primary Care - CC 09/01/18 Ilda Tapia CHW Community Health Worker Primary Care - CC 09/01/1804/22 Onesimo Bruno MD 1390 [place] [address] Assigned PCP 07/30/20 Florentino Jackson MD [facility] 347 [facility] 602 [place] [address] Assigned Surgical Provider 08/29/20 09/27/20 Nataliia Gomez MD [address] [facility], [address] [place] [address] Assigned Heart and Vascular Provider 08/29/20 10/08/22 Luly Grant MD 1655 [facility] [address] [place], [place] [phone] Assigned Allergy Provider 08/29/20 04/16/22 Rafita Ayers MD 909 [place] [address] Assigned Pulmonology Provider 10/12/20 06/06/23 Flo Henry MD 1875 [facility] [address] [place], [place] [phone] Assigned Behavioral Health Provider 09/21/20 Susan Robert CHW Community Health Worker Primary Care - CC 04/23/2106/15/21 Jana Vick CHW Community Health Worker Primary Care - CC 06/08/21 Tor Joseph DPM 2945 [facility] [address] [place] [address] Assigned Musculoskeletal Provider 07/05/21 03/19/22 Lorri Larsen MD [address] [place] [address] Otolaryngology 07/21/21 Lorri Larsen MD [address] [place] [address] Assigned Surgical Provider 10/10/21 04/28/23 Rafita Ayers MD [address] [place] [address] Critical Care 11/30/21 Kaelyn New, [place] [address] [place] [address] Pressure Sealer And Tester Audiology 12/09/21 Marino Hayes MD [address] [place] [address] Cardiovascular Disease 09/28/22 Marino Hayes MD [address] [place] [address] Assigned Heart and Vascular Provider 10/09/22 06/06/23 Nataliia Gomez MD [address] [place] [address], [address] [place] [address] Assigned Heart and Vascular Provider 06/07/23 documented as of this encounter
[2023-09-06 15:00] VITALS: BP 153/87; BP 161/105; BP 169/101; PULSE 72; PULSE 78
[2023-09-06] MEDS: 0.9 % SODIUM CHLORIDE 1000 ml 1,000 ML IV (15:25)
[2023-09-06 15:34] LABS: Basophils Absolute Auto 0.01 K/uL (0.00-0.30); Basophils Percent Auto 0.2 % (0.0-3.0); Eosinophils Absolute Auto 0.04 K/uL (0.00-0.50); Eosinophils Percent Auto 0.8 % (0.0-7.0); Hematocrit 44.9 % (37.0-53.0); Hemoglobin* 14.5 gm/dL (13.5-17.5); Immature Granulocytes Abs Auto 0.03 K/uL (0.00-0.30); Immature Granulocytes Pct Auto 0.6 %; Lymphocytes Absolute Auto 1.31 K/uL (0.90-2.90); Lymphocytes Percent Auto 27.8 % (20-44); Mean Corpuscular HGB Conc 32 gm/dL (32-36); Mean Corpuscular Hemoglobin 31 pg (26-34); Mean Corpuscular Volume 95 fL (80-100); Monocytes Percent Auto 6.6 % (0.0-11.0); Neutrophils Absolute Auto 3.01 K/uL (1.7-7.0); Platelet Count* 168 K/uL (140-440); RDW Coefficient of Variation % 13.5 % (11.5-15.5); Red Blood Count 4.71 m/uL (4.30-5.90); White Blood Count* 4.71 K/uL (4.50-11.00)
[2023-09-06 15:47] LABS: Chloride* 100 mmol/L (96-114); Potassium* 4.5 mmol/L (3.6-5.1); Slide Review Reflex No; Sodium* 136 mmol/L (135-149)
[2023-09-06 15:50] LABS: Anion Gap 5 mEq/L (7-15); Blood Urea Nitrogen* 19 mg/dL (7-30); Carbon Dioxide* 31 mmol/L (20-32); Creatinine* 1.3 mg/dL (0.5-1.5); Est. Creatinine Clearance* 58.03; Estimated Glomerular Filt Rate 59 ml/min
[2023-09-06 15:51] LABS: Calcium* 8.8 mg/dL (8.4-10.6); Glucose* 103 mg/dL (60-115)
[2023-09-06 16:05] LABS: NT Pro B Type NatriureticPept* 39 pg/mL; Troponin I* < 0.01 ng/mL (0.01-0.04)
[2023-09-06 16:59] VITALS: BP 164/94; PULSE 74; RESP 18; O2SAT 97
== END 2023-09-06 17:00 | disposition home or self-care (01) ==
PROVIDERS: Emergency Provider Family Medicine
DX: I95.1 Orthostatic hypotension (principal); S09.90XA Unspecified injury of head, initial encounter
CPT/HCPCS: 36415; 70450; 80048; 83880; 84484; 85025; 93005; 96360; 99284; 99285; J7030

== ENCOUNTER 2023-11-14 15:52 | Emergency (ER) | payer MEDICARE, BC, SELFPAY ==
[2023-11-14 16:00] VITALS: BP 132/75; PULSE 113; RESP 20; TEMP 37.1; O2SAT 94; BMI 40.7
--- NOTE | 2023-11-14 17:34 | ED.SOB ---
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 Patient notes that he was diagnosed with COVID last TuesdayNovember 06. At that time he had had a day or 2 of nasal congestion. He had shortness of breath and with his history of asthma he also had shortness of breath with exertion. He was placed on an antiviral unsure of what that was but it may have been mulnopiravir. He notes that he is not feeling a lot better. In fact he had a fever this morning up to 100.1. He has also been dealing with chills and facial pain in his sinuses. He notes that he has been taking Tussin cough syrup and extra-strength Tylenol and using trazodone to help sleep at night. He does have a CPAP the E uses when he is sleeping. He has had chest discomfort with coughing. History of 3 stents. He is also had DVT and is currently on Xarelto. No vomiting or abdominal pain noted. Dr Luong is worried that perhaps he has a sinusitis or pneumonia. Is wondering about starting an antibiotic and prednisone. Related Data Home Medications ?Medication ?Instructions ?Recorded ?Confirmed ezetimibe 10 mg tablet 10 mg PO DAILY 05/31/22 09/06/23 metoprolol succinate 50 mg 50 mg PO DAILY 05/31/22 09/06/23 tablet,extended release 24 hr nitroglycerin 0.4 mg sublingual 0.4 mg sublingual ONCE 05/31/22 09/06/23 tablet rosuvastatin 40 mg tablet 40 mg PO DAILY 05/31/22 09/06/23 tamsulosin 0.4 mg capsule 0.4 mg PO Q24H 05/31/22 09/06/23 armodafinil 250 mg tablet 250 mg PO DAILY 09/17/22 09/06/23 bupropion HCl 100 mg tablet,12 hr 100 mg PO QAM 09/17/22 09/06/23 sustained-release rivaroxaban 20 mg tablet (Xarelto) 20 mg PO DAILY 09/17/22 09/06/23 venlafaxine 150 mg 150 mg PO DAILY 09/17/22 09/06/23 capsule,extended release 24 hr venlafaxine 75 mg capsule,extended 75 mg PO DAILY 09/17/22 09/06/23 release 24 hr albuterol sulfate 90 mcg/actuation 2 puff inhalation Q6H PRN 02/27/23 09/06/23 aerosol inhaler fluticasone fur. 100 mcg-umeclid 1 ea inhalation DAILY 09/06/23 09/06/23 62.5 mcg-vilant 25 mcg inhalat.powder (Trelegy Ellipta) ipratropium 0.5 mg-albuterol 3 mg 1 inhalation Q4H PRN wheezing 09/06/23 (2.5 mg base)/3 mL nebulization soln Previous Rx's ?Medication ?Instructions ?Recorded acetaminophen 300 mg-codeine 30 mg 1 tab PO Q6H PRN pain #20 tabs 03/01/23 tablet Allergies Allergy/AdvReac Type Severity Reaction Status Date / Time oxycodone Allergy Rash Verified 05/16/23 03:14 Review of Systems Status of ROS: Reports: 10 or more systems reviewed and unremarkable except as noted in History and below Const: Reports: fever, chills and fatigue ENMT: Reports: nasal congestion; Denies: neck pain, difficulty swallowing or hoarseness Cardio: Reports: swelling of feet/ankles (Chronic) and shortness of breath with exertion Resp: Reports: shortness of breath and cough GI: Denies: abdominal pain, nausea, vomiting or difficulty swallowing Musculo: Denies: neck pain or extremity pain Neuro: Reports: headache Endo: Reports: fatigue PFSH PFS Medical History Fracture of phalanx of toe of right foot ?S92.911A - Unspecified fracture of right toe(s), initial encounter for closed fracture (ICD-10) Concussion ?S06.0XAA - Concussion with loss of consciousness status unknown, initial encounter (ICD-10) Cardiac arrhythmia ?I49.9 - Cardiac arrhythmia, unspecified (ICD-10) Type 2 diabetes mellitus ?E11.9 - Type 2 diabetes mellitus without complications (ICD-10) CAD (coronary artery disease) ?I25.10 - Atherosclerotic heart disease of [place] coronary artery without angina pectoris (ICD-10) COPD (chronic obstructive pulmonary disease) ?J44.9 - Chronic obstructive pulmonary disease, unspecified (ICD-10) Asthma ?J45.909 - Unspecified asthma, uncomplicated (ICD-10) Surgical History History of coronary artery stent placement ?Z95.5 - Presence of coronary angioplasty implant and graft (ICD-10) Social History Smoking Status: Never smoker Do you use any of these nicotine containing products: None Second hand tobacco smoke exposure: No How often do you have a drink containing alcohol: never How often do you have six or more drinks on one occasion: Never AUDIT-C Alcohol total score: 0 Non-prescribed substance use: denies use service: No Exam Narrative: Exam Narrative: Patient is alert and oriented. Very well-spoken gentleman. Face is symmetrical. No rhinitis is noted. Oral cavity with moist mucous membranes. No exudate noted. Neck is supple without lymphadenopathy. Heart with a regular rate and rhythm in the 90s. Lungs are with decreased breath sounds and a few crackles in the left lower lung base. Very mild subtle wheezing in the upper apices. Breath sounds are clear in the right lower lung base. Lower extremities with scant peripheral edema. No calf tenderness. He is mobile in the room and moving all extremities. Const: Vital Signs, click to edit/add: Vital Signs - 24 hr 11/14/23 16:00 Temperature 98.8 F Pulse Rate [Pulse Oximeter] 113 H Respiratory Rate 20 Blood Pressure [Ri ght Upper Arm] 132/75 Pulse Oximetry 94 Oxygen Delivery Me thod Room Air Documenting provider has reviewed patient's vital signs: yes Course Course ED Course: At this time agree that a chest x-ray and baseline labs should be done given the fact that he is still feeling this bad after a week. X-ray is ordered. CBC CRP and comprehensive ordered. O2 sats 94% on room air. Reevaluation(s) Reevaluation #1: Patient is sleeping with his CPAP on when I enter the room. Chest x-ray reassuring. CBCs returned white count is normal. Currently awaiting CRP and basic panel Vital Signs Vital signs: Initial Vital Signs Temperature 98.8 F 11/14/23 16:00 Temperature Source Oral 11/14/23 16:00 Pulse Rate 113 H 11/14/23 16:00 Respiratory Rate 20 11/14/23 16:00 Blood Pressure 132/75 11/14/23 16:00 Blood Pressure Mean 94 11/14/23 16:00 Pulse Oximetry 94 11/14/23 16:00 Oxygen Delivery Method Room Air 11/14/23 16:00 Vital Signs Temperature 98.8 F 11/14/23 16:00 Pulse Rate 113 H 11/14/23 16:00 Respiratory Rate 20 11/14/23 16:00 Blood Pressure 132/75 11/14/23 16:00 Pulse Oximetry 94 11/14/23 16:00 Oxygen Delivery Method Room Air 11/14/23 16:00 Temperature 98.8 F 11/14/23 16:00 Pulse Rate 113 H 11/14/23 16:00 Respiratory Rate 20 11/14/23 16:00 Blood Pressure 132/75 11/14/23 16:00 Pulse Oximetry 94 11/14/23 16:00 Oxygen Delivery Method Room Air 11/14/23 16:00 MDM - SOB/Dyspnea MDM Narrative Medical decision making narrative: 1. COVID -O2 sats within normal limits. Patient currently on Xarelto so this is protective against any further clot formation. 2. Clinical cmwxenzvi-w-tdn is clear but I could clearly auscultate decreased lung sounds and a few crackles in the left lower lung base and therefore do suggest treatment with Augmentin 875 p.o. b.i.d. x7 days. Because of history of asthma and very subtle wheezing will also add prednisone 20 mg p.o. b.i.d. x5 days. Both of these meds given through [employer] meds. 3. Disposition-home at this time. Monitor for worsening symptoms. Return for shortness of breath, chest pain, vomiting and as needed. Medical Records Attestation: I reviewed the patient's medical records. Lab Data Attestation: I reviewed the patient's lab results. Labs: Lab Results 11/14/23 Range/Units 18:18 WBC 5.91 (4.50-11.00) K/uL RBC 5.05 (4.30-5.90) m/uL Hgb 15.5 (13.5-17.5) gm/dL Hct 47.9 (37.0-53.0) % MCV 95 (80-100) fL MCH 31 (26-34) pg MCHC 32 (32-36) gm/dL RDW Coeff of Cosmo 12.9 (11.5-15.5) % Plt Count 217 (140-440) K/uL Neut % (Auto) 65.5 (42.0-72.0) % Lymph % (Auto) 24.4 (20-44) % [place] % (Auto) 9.1 (0.0-11.0) % Eos % (Auto) 0.5 (0.0-7.0) % Baso % (Auto) 0.3 (0.0-3.0) % Neut # (Auto) 3.87 (1.7-7.0) K/uL Lymph # (Auto) 1.44 (0.90-2.90) K/uL [place] # (Auto) 0.50 (0.00-0.90) K/UL Eos # (Auto) 0.03 (0.00-0.50) K/uL Baso # (Auto) 0.02 (0.00-0.30) K/uL Abs Immat Gran (auto) 0.01 (0.00-0.30) K/uL Imm/Tot Granulo (auto) 0.2 % Sodium 136 (135-149) mmol/L Potassium 4.5 (3.6-5.1) mmol/L Chloride 98 (96-114) mmol/L Carbon Dioxide 30 (20-32) mmol/L Anion Gap 8 (7-15) mEq/L BUN 22 (7-30) mg/dL Creatinine 1.3 (0.5-1.5) mg/dL Estimated Creat Clear 58.03 Estimated GFR 59 ml/min Glucose 97 (60-115) mg/dL Calcium 9.5 (8.4-10.6) mg/dL Total Bilirubin 0.8 (0.1-1.5) mg/dL AST 32 (12-35) U/L ALT 39 (4-50) U/L Alkaline Phosphatase 87 (40-150) U/L C-Reactive Protein 3.8 H (0.5-1.0) mg/dL Total Protein 7.4 (6.0-8.3) g/dL Albumin 4.3 (3.3-5.0) g/dL Imaging Data Chest x-ray: Attestation: I have reviewed the pertinent imaging results. My impression: I do not note any acute infiltrates. Radiologist's impression: FINDINGS: The sensitivity and specificity of the exam are moderately limited by the patient`s body habitus. Mediastinum: The mediastinum is normal in appearance. The heart silhouette is normal in size and morphology. Lung: Both lungs are unremarkable in appearance. No sign of pleural effusion seen. No pneumothorax is identified. Bone and Soft tissue: Unremarkable for age. IMPRESSION: 1. No acute cardiopulmonary disease is seen. Discharge Plan Discharge Clinical Impression: Pneumonia Qualifiers: Pneumonia type: due to unspecified organism Laterality: left Lung location: lower lobe of lung Qualified Code(s): J18.9 - Pneumonia, unspecified organism Patient Disposition: Home, Self-Care Condition: Unchanged Additional Instructions: Start Augmentin today Prednisone as directed. Both are in [facility] Return as needed for worsening symptoms It was a pleasure to talk to you today Dr. Luong. Prescriptions: No Action rosuvastatin 40 mg tablet 40 mg PO DAILY metoprolol succinate 50 mg tablet extended release 24 hr 50 mg PO DAILY Patient Comments: TAKE 1 TABLET BY MOUTH DAILY tamsulosin 0.4 mg capsule 0.4 mg PO Q24H nitroglycerin 0.4 mg tablet, sublingual 0.4 mg sublingual ONCE ezetimibe 10 mg tablet 10 mg PO DAILY venlafaxine 75 mg capsule,extended release 24hr 75 mg PO DAILY venlafaxine 150 mg capsule,extended release 24hr 150 mg PO DAILY bupropion HCl 100 mg tablet sustained-release 12 hr 100 mg PO QAM Xarelto 20 mg tablet 20 mg PO DAILY armodafinil 250 mg tablet 250 mg PO DAILY albuterol sulfate 90 mcg/actuation HFA aerosol inhaler 2 puff INHALATION Q6H PRN acetaminophen-codeine 300-30 mg tablet 1 tab PO Q6H PRN (Reason: pain) Qty: 20 0RF ipratropium-albuterol 0.5 mg-3 mg(2.5 mg base)/3 mL solution for nebulization 1 INHALATION Q4H PRN (Reason: wheezing) Trelegy Ellipta 100-62.5-25 mcg blister with device 1 ea INHALATION DAILY Follow Up/Referrals: Provider,Not a Local [Primary Care Provider] - Stand Alone Forms: [employer] Info Instructions
--- NOTE | 2023-11-14 17:57 | CRLHL7_ITS ---
For Patients: As a result of the Century Cures Act, medical imaging exams and procedure reports are released immediately into your electronic medical record. You may view this report before your referring provider. If you have questions, please contact your health care provider. INDICATION: COVID-19, shortness of breath TECHNIQUE: Chest radiograph 1 view COMPARISON: 03/01/2023 FINDINGS: The sensitivity and specificity of the exam are moderately limited by the patient`s body habitus. Mediastinum: The mediastinum is normal in appearance. The heart silhouette is normal in size and morphology. Lung: Both lungs are unremarkable in appearance. No sign of pleural effusion seen. No pneumothorax is identified. Bone and Soft tissue: Unremarkable for age. IMPRESSION: 1. No acute cardiopulmonary disease is seen. Dictated by: Oscar Raman MD @ 11/14/2023 18:37:27 (Electronically Signed)
--- OUTSIDE RECORDS SUMMARY | 2023-11-14 18:36 | XMS_ITS | Encounter Summary ---
Author Organization [facility] Address [address] [place] [address] Care Team Providers Care Order Dispatcher Chief Name Role Phone Onesimo Bruno MD Primary Care Provider Bhavna Mac PharmD Unavailable Isaac Bro RN Unavailable [phone] Onesimo Bruno MD Unavailable [phone] Flo Henry MD Unavailable Jana Vick CHW Unavailable Unavailabl e Lorri Larsen MD Unavailable Rafita Ayers MD Unavailable [phone] Kaelyn New AuD Unavailable [phone] Marino Hayes MD Unavailable [phone] Nataliia Gomez MD Unavailable Encounter Details Date Type Department Care Team (Late st Contact Info) Description 11/11/2023 Telephone [facility] Care Coordination [address] [place] [address] Isaac Bro, RN Social History Tobacco Use Types Packs/Day [...] Telephone Encounter - Lita Cardona RN - 11/14/2023 2:20 PM CDT Attempted to reach patient. Patient's spouse reports patient is currently speaking to a [facility] nurse. Cordell states patient completed molnupiravir however he is continuing to be symptomatic. Cordell reports cough has improved however he had a fever of 101 F today. Cordell requested we return call shortly and watch for Triage encounter to be sent to PCP. * Telephone Encounter - Onesimo Bruno MD - 11/14/2023 12:52 PM CDT This message was from last week, as I was not here on Tuesday. Generally we do not give sleeping medications for cough. How is he doing now? Is he still up at night because of cough? If so we will gethim some codeine cough syrup. Let me know. * Telephone Encounter - Martín Luu RN - 11/11/2023 2:27 PM CDT Notified patient of Dr. Guillermo's recommendation. Patient states he has tried melatonin in the past, and it has not worked. Patient states his cough is keeping him up. Patient states trazodone has worked in the past and he is hoping to get trazodone. Informed patient we would see if Dr. Guillermo had any further recommendation knowing melatonin does has not worked. * Telephone Encounter - Manuel Guillermo MD - 11/11/2023 1:32 PM CDT I would suggest melatonin 3 to 5 mg before sleep * Telephone Encounter - Isaac Bro RN - 11/11/2023 12:28 PM CDT [facility] Bruno, Patient has COVID and is currently on molnupirarvi (Lagevrio). Cordell is asking if Roger can get something for sleep, like Trazodone or a cough syrup with Codeine. Please advise. If you agree with this request, please send order to the [facility] [place] listed in his chart. Thanks, Vishnu Bro RN CCC RN documented in this encounter Plan of Treatment Upcoming Encounters Date Type Department Care Team (Late st Contact Info) Description 01/05/2024 1:00 PM COAL DRIER OPERATOR Office Visit [facility] [address] [place] [phone] Onesimo Bruno MD [address] [place], [place] [id number] documented as of this encounter Goals Goal [...] continue to work with my Weight Watcher's academic coach and start attending their Webinars. 4. I will report progress towards this goal at outreach telephone calls from the [facility] team Discussed 08/12/23 documented as of this encounter Visit Diagnoses Not on filedocumented in this encounter Additional Health Concerns Active Problems Noted Date Diagnosed Date HP GENERAL PROBLEM 11/13/2021 Assessment Noted Time PHQ-9 Depression Total Score: 7 12/09/19 23 11:14 AM CDT documented as of this encounter Care Teams Order Dispatcher Chief Relationship Specialty Start Date End Date Onesimo Bruno MD PCP - General 08/11/06 Bhavna Mac, PharmD [address] [place] [address] Pharmacist Pharmacist 07/11/18 Isaac Bro, RN Lead Fur Coat Sewer Primary Care - CC 09/01/18 Onesimo Bruno MD [address] [place] [address] Assigned PCP 07/30/20 Flo Henry MD [address] [facility] [address] [place] [address] Assigned Behavioral Health Provider 09/21/20 Jana Vick, W Community Health Worker Primary Care - CC 06/08/21 Lorri Larsen MD [address] [place] [address] Otolaryngology 07/21/21 Rafita Ayers MD [address] [place] [address] Critical Care 11/30/21 Kaelyn New AuD [address] [place] [address] Percussion Teacher Audiology 12/09/21 Marino Hayes MD [address] [place] [address] Cardiovascular Disease 09/28/22 Nataliia Gomez MD [address] [facility], [address] [place] [address] Assigned Heart and Vascular Provider 06/07/23 documented as of this encounter
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
--- OUTSIDE RECORDS SUMMARY | 2023-11-14 18:36 | XMS_ITS | Encounter Summary ---
Author Organization [facility] Address [address] [place] [address] Care Team Providers Care Clinical Admissions Manager Name Role Phone Onesimo Bruno MD Primary Care Provider Bhavna Mac PharmD Unavailable Isaac Bro RN Unavailable [phone] Onesimo Bruno MD Unavailable [phone] Flo Henry MD Unavailable Jana Vick Unavailable Unavailabl e Lorri Larsen MD Unavailable [phone] Rafita Ayers MD Unavailable [phone] Kaelyn New AuD Unavailable [phone] Marino Hayes MD Unavailable Nataliia Gomez MD Unavailable Reason for Visit * Reason Comments Covid Concern Encounter Details Date Type Department Care Team (Late st Contact Info) Description 11/09/2023 4:30 PM CDT Virtual Visit [facility] [address] [address] [place] [address] COVID-19 (Primary Dx) Social History Tobacco Use Types [...] in an abandoned building, in an overnight care home, or couch-surfing.) Yes 02/15/2023 Are you [...] as of this encounter Progress Notes * Lexy Polanco, BERTRAND DETECTIVE NARCOTICS AND VICE - 11/09/2023 4:30 PM CDT Roger is a 72 year old who is being evaluated via a billable video visit. How would you like to obtain your AVS? MyChart If the video visit is dropped, the invitation should be resent by: Text to cell phone: [phone] Will anyone else be joining your video visit? No Assessment & Plan (U07.1) COVID-19 (primary encounter diagnosis) Plan: molnupiravir (LAGEVRIO) 200 MG capsule Lexy Polanco APRN CNP Subjective Roger is a 72 year old, presenting for the following health issues: Covid Concern Video Start Time: 4:30PM HPI Diagnosed at home with covid last night Sx started the day before that and consist of headache fatigue aches Has asthma. Using inhalers/neb, helping. Hydrated Objective Vitals: No vitals were obtained today due to virtual visit. Physical Exam GENERAL: alert and no distress EYES: Eyes grossly normal to inspection. No discharge or erythema, or obvious scleral/conjunctival abnormalities. RESP: No audible wheeze, cough, or visible cyanosis. SKIN: Visible skin clear. No significant rash, abnormal pigmentation or lesions. NEURO: Cranial nerves grossly intact. Mentation and speech appropriate for age. PSYCH: Appropriate affect, tone, and pace of words Video-Visit Details Type of service: Video Visit Video End Time:4:45 PM Originating Location (pt. Location): Home Distant Location (provider location): Off-site Platform used for Video Visit: [facility] Signed Electronically by: Virtual Urgent Care documented in this encounter Plan of Treatment Upcoming Encounters Date Type Department Care Team (Late st Contact Info) Description 01/05/2024 1:00 PM SWITCHBOARD OPERATOR ASSISTANT Office Visit [facility] [address] [place] [phone] Onesimo Bruno MD [address] [place] [address] documented as of this encounter Goals Goal [...] [facility] team Discussed 08/12/23 documented as of this encounter Visit Diagnoses Diagnosis COVID-19- Primary documented in this encounter Additional Health Concerns Active Problems Noted Date Diagnosed Date HP GENERAL PROBLEM 11/13/2021 Assessment Noted Time PHQ-9 Depression Total Score: 7 12/09/19 23 11:14 AM CDT documented as of this encounter Care Teams Clinical Admissions Manager Relationship Specialty Start Date End Date Onesimo Bruno MD PCP - General 08/11/06 Bhavna Mac, GenesisD [address] [place] [address] Pharmacist Pharmacist 07/11/18 Isaac Bro, RN Lead Restaurant Supervisor Primary Care - CC 09/01/18 Onesimo Bruno MD [address] [place] [address] Assigned PCP 07/30/20 Flo Henry MD [facility] [address] Assigned Behavioral Health Provider 09/21/20 Jana Vick, W Community Health Worker Primary Care - CC 06/08/21 Lorri Larsen MD [address] [place] [address] Otolaryngology 07/21/21 Rafita Ayers MD [address] [place] [address] Critical Care 11/30/21 Kaelyn New AuD [address] [place] [address] Game Developer Audiology 12/09/21 Marino Hayes MD [address] [place] [address] Cardiovascular Disease 09/28/22 Nataliia Gomez MD [address] [facility], [address] [place] [address] Assigned Heart and Vascular Provider 06/07/23 documented as of this encounter
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
--- OUTSIDE RECORDS SUMMARY | 2023-11-14 18:36 | XMS_ITS | Encounter Summary ---
Author Organization [place] Address [address] [place] [address] Care Team Providers Care Wireworker Supervisor Name Role Phone Onesimo Bruno MD Primary Care Provider Bhavna Mac PharmD Unavailable [phone] Isaac Bro RN Unavailable [phone] Onesimo Bruno MD Unavailable [phone] Flo Henry MD Unavailable [phone] Jana Vick CHW Unavailable Unavailabl e Lorri Larsen MD Unavailable Rafita Ayers MD Unavailable Kaelyn New AuD Unavailable [phone] Marino Hayes MD Unavailable [phone] Nataliia Gomez MD Unavailable Encounter Details Date Type Department Care Team (Late st Contact Info) Description 09/26/2023 Orders Only (auto-released) [facility] [address] [place] [address] Onesimo Bruno MD [address] [place], [place] [phone] Syncope, unspecified syncope type Social History Tobacco Use Types Packs/Day Years [...] st Contact Info) Description 01/05/2024 1:00 PM REFLECTOR DRILLER AND DEBURRER Office Visit [facility] [address] [place] [address] Onesimo Bruno MD [address] [place] [address] documented as of this encounter Goals Goal Patient Goal Type Associated Problems Recent Progress Patient-Stated? Author I would like to get into more healthy eating program to assist me with weight loss. Care Plan HP GENERAL PROBLEM 40%( 1:55 PM CDT) No Isaac Bro RN [...] to work with my Weight Watcher's coach professional athletes and start attending their Webinars. 4. I will report progress towards this goal at outreach telephone calls from the [facility] team Discussed 08/12/23 documented as of this encounter Procedures Procedure Name Priority Date/Time Associated Diagnosis Comments ZIO PATCH MAIL OUT Routine 11/03/2023 3: 35 PM CDT Syncope, unspecified syncope type documented in this encounter Results * ZIO PATCH MAIL OUT (11/03/2023 [...] documented in this encounter Visit Diagnoses Diagnosis Syncope, unspecified syncope type documented in this encounter Additional Health Concerns Active Problems Noted Date Diagnosed Date HP GENERAL PROBLEM 11/13/2021 Assessment Noted Time PHQ-9 Depression Total Score: 7 12/09/19 23 11:14 AM CDT documented as of this encounter Care Teams Wireworker Supervisor Relationship Specialty Start Date End Date Onesimo Bruno MD PCP - General 08/11/06 Bhavna Mac, GenesisD [address] [place] [address] Pharmacist Pharmacist 07/11/18 Isaac Bro, RN Lead Mobility Specialist Primary Care - CC 09/01/18 Onesimo Bruno MD [address] [place] [address] Assigned PCP 07/30/20 Flo Henry MD [facility] [address] [address] Assigned Behavioral Health Provider 09/21/20 Jana Vick W Community Health Worker Primary Care - CC 06/08/21 Lorri Larsen MD [address] [place] [phone] Otolaryngology 07/21/21 Rafita Ayers MD [address] [place] [phone] Critical Care 11/30/21 Kaelyn New AuD [facility]5 [place] [address] Service Bar Cashier Audiology 12/09/21 Marino Hayes MD [address] [place], [place] [address] Cardiovascular Disease 09/28/22 Nataliia Gomez MD [address] [facility], [address] [place] [address] Assigned Heart and Vascular Provider 06/07/23 documented as of this encounter
--- OUTSIDE RECORDS SUMMARY | 2023-11-14 18:37 | XMS_ITS | Encounter Summary ---
Author Organization [place] Address [address] [place] [address] Care Team Providers Care Firmware Manager Name Role Phone Onesimo Bruno MD Primary Care Provider Bhavna Mac PharmD Unavailable Isaac Bro RN Unavailable [phone] Onesimo Bruno MD Unavailable [phone] Flo Henry MD Unavailable [phone] Jana Vick Unavailable Unavailabl e Lorri Larsen MD Unavailable Rafita Ayers MD Unavailable [phone] Kaelyn New AuD Unavailable Marino Hayes MD Unavailable Nataliia Gomez MD Unavailable Encounter Details Date Type Department Care Team (Late st Contact Info) Description 06/23/2023 Telephone [facility] Neurology Clinic [facility] [address] [place] [address] Flo Henry MD [address] [address] Social History Tobacco Use Types [...] in an abandoned building, in an overnight detention, or couch-surfing.) Yes 02/15/2023 Are you worried [...] st Contact Info) Description 01/05/2024 1:00 PM RN ONCOLOGY CLINICAL Office Visit [facility] [address] [place] [address] Onesimo Bruno MD [address] [place] [address] documented as of this encounter Goals Goal [...] outreach telephone calls from the [facility] team Discussed 08/12/23 documented as of this encounter Visit Diagnoses Not on filedocumented in this encounter Additional Health Concerns Active Problems Noted Date Diagnosed Date HP GENERAL PROBLEM 11/13/2021 Assessment Noted Time PHQ-9 Depression Total Score: 7 12/09/19 23 11:14 AM CDT documented as of this encounter Care Teams Firmware Manager Relationship Specialty Start Date End Date Onesimo Bruno MD PCP - General 08/11/06 Bhavna Mac, GenesisD [address] [place] [address] Pharmacist Pharmacist 07/11/18 Isaac Bro, RN Lead Parts Identifier Primary Care - CC 09/01/18 Onesimo Bruno MD [address] [place] [address] Assigned PCP 07/30/20 Flo Henry MD [address] [facility] [address] [place] [address] Assigned Behavioral Health Provider 09/21/20 Jana Vick, W Community Health Worker Primary Care - CC 06/08/21 Lorri Larsen MD [address] [place] [address] Otolaryngology 07/21/21 Rafita Ayers MD [address] [place] [address] Critical Care 11/30/21 Kaelyn New, AuD [facility]5 [place] [address] Slate Picker Audiology 12/09/21 Marino Hayes MD [address] [place] [address] Cardiovascular Disease 09/28/22 Nataliia Gomez MD [address] [place] [address], [address] [place] [address] Assigned Heart and Vascular Provider 06/07/23 documented as of this encounter
--- OUTSIDE RECORDS SUMMARY | 2023-11-14 18:37 | XMS_ITS | Encounter Summary ---
Author Organization [place] Address [address] [place] [address] Care Team Providers Care Automobile Mechanic Name Role Phone Onesimo Bruno MD Primary Care Provider [phone] Bhavna Mac PharmD Unavailable [phone] Isaac Bro RN Unavailable [phone] Onesimo Bruno MD Unavailable [phone] Flo Henry MD Unavailable Jana Vick CHW Unavailable Unavailabl e Lorri Larsen MD Unavailable [phone] Rafita Ayers MD Unavailable Kaelyn New Unavailable Marino Hayes MD Unavailable Nataliia Gomez MD Unavailable Reason for Visit * Reason Onset Date Comments [employer] Physician Orders CPAP supplies 09/2023 Encounter Details Date Type Department Care Team (Late st Contact Info) Description 08/22/2023 Telephone [facility] 139[address] [place] [phone] Onesimo Bruno MD [address]0 [place], [place] [phone] [employer] Physician Orders CPAP supplies Social [...] 08/22/2023 11:42 AM CDT August 22, 2023 [facility] Physician Orders CPAP supplies was received via fax for Dr. Bruno. Patient label was attached to paperwork and placed in provider's inbox to be signed. Chanda Calix documented in this encounter Plan of Treatment Upcoming Encounters Date Type Department Care Team (Late st Contact Info) Description 01/05/2024 1:00 PM COMPLAINT SUPERVISOR Office Visit [facility] 139[address] [place] [phone] Onesimo Bruno MD [address]0 [place] [address] documented as of this encounter Goals Goal [...] continue to work with my Weight Watcher's transformation coach and start attending their Webinars. 4. [...] documented as of this encounter Care Teams Automobile Mechanic Relationship Specialty Start Date End Date Onesimo Bruno MD PCP - General 08/11/06 Bhavna Mac, GenesisD [address]70 [place] [address] Pharmacist Pharmacist 07/11/18 Isaac Bro, RN Lead Cook Jelly Primary Care - CC 09/01/18 Onesimo Bruno MD 1390 [place] [address] Assigned PCP 07/30/20 Flo Henry MD [address] [address] Assigned Behavioral Health Provider 09/21/20 Jana Vick, W Community Health Worker Primary Care - CC 06/08/21 Lorri Larsen MD [address] [place] [address] Otolaryngology 07/21/21 Rafita Ayers MD [address] [place] [address] Critical Care 11/30/21 Kaelyn New AuD [address]25 [place] [address] Assembly Machine Tender Audiology 12/09/21 Marino Hayes MD [address] [place] [address] Cardiovascular Disease 09/28/22 Nataliia Gomez MD [address] [place] [address], [address] [place] [address] Assigned Heart and Vascular Provider 06/07/23 documented as of this encounter
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
--- OUTSIDE RECORDS SUMMARY | 2023-11-14 18:37 | XMS_ITS | Encounter Summary ---
Author Organization [place] Address [address] [place] [address] Care Team Providers Care Molder Hand Name Role Phone Onesimo Bruno MD Primary Care Provider [phone] Bhavna Mac PharmD Unavailable [phone] Isaac Bro RN Unavailable [phone] Onesimo Bruno MD Unavailable [phone] Flo Henry MD Unavailable [phone] Jana Vick CHW Unavailable Unavailabl e Lorri Larsen MD Unavailable [phone] Rafita Ayers MD Unavailable [phone] Kaelyn New AuD Unavailable [phone] Marino Hayes MD Unavailable [phone] Nataliia Gomez MD Unavailable Encounter Details Date Type Department Care Team (Latest Contact Info) Description 09/26/2023 Travel Social History Tobacco Use Types Packs/Day [...] st Contact Info) Description 01/05/2024 1:00 PM CATALYST CONCENTRATION OPERATOR Office Visit [facility] 1390 [place] [phone] Onesimo Bruno MD [address]0 [place] [address] documented as of this encounter Goals Goal [...] continue to work with my Weight Watcher's cricket coach and start attending their Webinars. 4. I will report progress towards this goal at outreach telephone calls from the [facility] team Discussed 08/12/23 documented as of this encounter Visit Diagnoses Not on filedocumented in this encounter Additional Health Concerns Active Problems Noted Date Diagnosed Date HP GENERAL PROBLEM 11/13/2021 Assessment Noted Time PHQ-9 Depression Total Score: 7 12/09/19 23 11:14 AM CDT documented as of this encounter Care Teams Molder Hand Relationship Specialty Start Date End Date Onesimo Bruno MD PCP - General 08/11/06 Bhavna Mac, GenesisD [address]70 [place] [address] Pharmacist Pharmacist 07/11/18 Isaac Bro, RN Lead Diesel Engine Erector Primary Care - CC 09/01/18 Onesimo Bruno MD [address] [place] [address] Assigned PCP 07/30/20 Flo Henry MD [facility] [address] [address] Assigned Behavioral Health Provider 09/21/20 Jana Vick, [facility] Community Health Worker Primary Care - CC 06/08/21 Lorri Larsen MD 9 [place] [address] Otolaryngology 07/21/21 Rafita Ayers MD [address] [place] [address] Critical Care 11/30/21 Kaelyn New AuD [address] [place] [phone] Head Butler Audiology 12/09/21 Marino Hayes MD [address] [place] [address] Cardiovascular Disease 09/28/22 Nataliia Gomez MD [address] [facility], [address] [place], [place] [address] Assigned Heart and Vascular Provider 06/07/23 documented as of this encounter
--- OUTSIDE RECORDS SUMMARY | 2023-11-14 18:37 | XMS_ITS | Encounter Summary ---
Author Organization [place] Address [address] [place] [address] Care Team Providers Care Telecommunications Support Name Role Phone Onesimo Bruno MD Primary Care Provider Bhavna Mac PharmD Unavailable [phone] Isaac Bro RN Unavailable [phone] Onesimo Bruno MD Unavailable [phone] Flo Henry MD Unavailable Jana Vick CHW Unavailable Unavailabl e Lorri Larsen MD Unavailable Rafita Ayers MD Unavailable [phone] Kaelyn New AuD Unavailable [phone] Marino Hayes MD Unavailable [phone] Nataliia Gomez MD Unavailable Reason for Visit * Reason Onset Date Comments Medication Question 09/14/2023 Encounter Details Date Type Department Care Team (Late st Contact Info) Description 09/14/2023 Telephone M [facility] Care Coordination [address] [place] [address] Isaac Bro, RN Medication Question Social History Tobacco Use [...] in an abandoned building, in an overnight penitentiary, or couch-surfing.) Yes 02/15/2023 Are you worried [...] Telephone Encounter - Onesimo Bruno MD - 09/14/2023 3:21 PM CDT Please have them just get back on his current regular dose. If he is suicidal he should be seen in the emergency room or crisis clinic. * Telephone Encounter - Isaac Bro RN - 09/14/2023 2:46 PM CDT Shivam Bruno, I just spoke with Cordell. He stated he forgot to fill patient's venlafaxine in his medication box. Patient had been without venlafaxine for three days. He did take his 300 mg dose today at 2 pm. Cordell stated patient appears to be exhibiting side effects of the missed doses. Cordell said she is currently having a bad crying spell. He asked if they needed to make any dose adjustments with the venlafaxin e. They tried to get a hold of Dr. Henry , but was unable to get a hold of him. Thanks, Vishnu Bro RN CCC RN documented in this encounter Plan of Treatment Upcoming Encounters Date Type Department Care Team (Late st Contact Info) Description 01/05/2024 1:00 PM BOOKKEEPING CLERKS SUPERVISOR Office Visit [facility] [address] [place] [phone] Onesimo Bruno MD 1390 [place] [address] documented as of this encounter Goals Goal [...] continue to work with my Weight Watcher's pitching coach and start attending their Webinars. 4. [...] documented as of this encounter Care Teams Telecommunications Support Relationship Specialty Start Date End Date Onesimo Bruno MD PCP - General 08/11/06 Bhavna Mac, Elio [address] [place] [address] Pharmacist Pharmacist 07/11/18 Isaac Bro, RN Lead News Video Editor Primary Care - CC 09/01/18 Onesimo Bruno MD [address]0 [place] [address] Assigned PCP 07/30/20 Flo Henry MD [facility] [address] [address] Assigned Behavioral Health Provider 09/21/20 Jana Vick CHVaibhav Community Health Worker Primary Care - CC 06/08/21 Lorri Larsen MD [address] [place] [address] Otolaryngology 07/21/21 Rafita Ayers MD [address] [place] [address] Critical Care 11/30/21 Kaelyn New AuD [address]25 [place] [address] Drywall Foreman Audiology 12/09/21 Marino Hayes MD 6 [place] [address] Cardiovascular Disease 09/28/22 Nataliia Gomez MD [address] [place] [address], [address] [place] [address] Assigned Heart and Vascular Provider 06/07/23 documented as of this encounter
--- OUTSIDE RECORDS SUMMARY | 2023-11-14 18:37 | XMS_ITS | Encounter Summary ---
Author Organization [place] Address [address] [place] [address] Care Team Providers Care Crown Blocker Name Role Phone Onesimo Bruno MD Primary Care Provider [phone] Bhavna Mac PharmD Unavailable Isaac Bro RN Unavailable [phone] Onesimo Bruno MD Unavailable [phone] Flo Henry MD Unavailable Jana Vick CHW Unavailable Unavailabl e Lorri Larsen MD Unavailable Rafita Ayers MD Unavailable Kaelyn New Unavailable Marino Hayes MD Unavailable Nataliia Gomez MD Unavailable Reason for Visit * Reason Onset Date Comments Refill Request 07/13/2023 buPROPion (WELLB UTRIN SR) 100 MG 12 hr tablet Encounter Details Date Type Department Care Team (Late st Contact Info) Description 07/13/2023 [facility] [address] [phone] Flo Henry MD [address] [place] [phone] Refill Request (buPROPion (WELLBUTRIN SR) 100 MG [...] in an abandoned building, in an overnight long-term, or couch-surfing.) Yes 02/15/2023 Are you worried [...] other encounter for medication refill details. Aftab SOHEA ATC on 07/13/2023 at 11:20 AM * Telephone Encounter - Haritha Humphrey - 07/13/2023 9:29 AM CDT [facility] Call Center Phone Message May a detailed message be left on voicemail: yes Reason for Call: Medication Refill Request Has the patient contacted the pharmacy for the refill? Yes Name of medication being requested: buPROPion (WELLBUTRIN SR) 100 MG 12 hr tablet Provider who prescribed the medication: Flo Henry MD Pharmacy: [facility] [address] [place] [address] Date medication is needed: 07/23/2023 Pt has 13 pills left. Action Taken: Other: Neurology Travel Screening: Not Applicable documented in this encounter Plan of Treatment Upcoming Encounters Date Type Department Care Team (Late st Contact Info) Description 01/05/2024 1:00 PM CORONER TECHNICIAN Office Visit [facility] [address] [place] [phone] Onesimo Bruon MD 1390 [place] [address] documented as of this encounter Goals Goal [...] to work with my Weight Watcher's personal coach and start attending their Webinars. 4. [...] documented as of this encounter Care Teams Crown Blocker Relationship Specialty Start Date End Date Onesimo Bruno MD PCP - General 08/11/06 Bhavna Mac, PharmD [address] [place] [address] Pharmacist Pharmacist 07/11/18 Isaac Bro, RN Lead Leather Repairer Primary Care - CC 09/01/18 Onesimo Bruno MD [address]0 [place] [address] Assigned PCP 07/30/20 Flo Henry MD [facility] [address] [address] Assigned Behavioral Health Provider 09/21/20 Jana Vick W Community Health Worker Primary Care - CC 06/08/21 Lorri Larsen MD [address] [place] [address] Otolaryngology 07/21/21 Rafita Ayers MD 909 [place] [address] Critical Care 11/30/21 Kaelyn New AuD [address]25 [place] [address] Molecular Biology Professor Audiology 12/09/21 Marino Hayes MD [address] [place] [address] Cardiovascular Disease 09/28/22 Nataliia Gomez MD [address] [facility], [address] [place] [address] Assigned Heart and Vascular Provider 06/07/23 documented as of this encounter
--- OUTSIDE RECORDS SUMMARY | 2023-11-14 18:37 | XMS_ITS | Encounter Summary ---
Author Organization [employer] Address [address] [place] [address] Care Team Providers Care Combined Rail Operator Name Role Phone Onesimo Bruno MD Primary Care Provider [phone] Bhavna Mac PharmD Unavailable Isaac Bro RN Unavailable [phone] Onesimo Bruno MD Unavailable [phone] Flo Henry MD Unavailable [phone] Jana Vick CHW Unavailable Unavailabl e Lorri Larsen MD Unavailable Rafita Ayers MD Unavailable Kaelyn New AuD Unavailable Marino Hayes MD Unavailable Nataliia Gomez MD Unavailable Encounter Details Date Type Department Care Team (Late st Contact Info) Description 09/06/2023 [facility] Medical Advice [facility] 139[address] [place] [address] Onesimo Bruno MD [address]0 [place], [place] [phone] Social History Tobacco Use Types Packs/Day Years [...] st Contact Info) Description 01/05/2024 1:00 PM FLOTATION TENDER HELPER Office Visit [facility] [address] [place] [address] Onesimo Bruno MD [address]0 [place] [address] documented as of this encounter Goals Goal [...] to work with my Weight Watcher's track coach and start attending their Webinars. 4. I will report progress towards this goal at outreach telephone calls from the [facility] team Discussed 08/12/23 documented as of this encounter Visit Diagnoses Not on filedocumented in this encounter Additional Health Concerns Active Problems Noted Date Diagnosed Date HP GENERAL PROBLEM 11/13/2021 Assessment Noted Time PHQ-9 Depression Total Score: 7 12/09/19 23 11:14 AM CDT documented as of this encounter Care Teams Combined Rail Operator Relationship Specialty Start Date End Date Onesimo Bruno MD PCP - General 08/11/06 Bhavna Mac PharmD [address] [place] [address] Pharmacist Pharmacist 07/11/18 Isaac Bro, RN Lead Firer Kiln Primary Care - CC 09/01/18 Onesimo Bruno MD [address]0 [place] [address] Assigned PCP 07/30/20 Flo Henry MD [address] [address] Assigned Behavioral Health Provider 09/21/20 Jana Vick, W Community Health Worker Primary Care - CC 06/08/21 Lorri Larsen MD [address] [place] [address] Otolaryngology 07/21/21 Rafita Ayers MD [address] [place] [address] Critical Care 11/30/21 Kaelyn New, AuD [facility]5 [place] [address] Infant Lead Teacher Audiology 12/09/21 Marino Hayes MD [address] [place] [address] Cardiovascular Disease 09/28/22 Nataliia Gomez MD [address] [place] [address], [address] [place] [address] Assigned Heart and Vascular Provider 06/07/23 documented as of this encounter
--- OUTSIDE RECORDS SUMMARY | 2023-11-14 18:37 | XMS_ITS | Encounter Summary ---
Author Organization [place] Address [address] [place] [address] Care Team Providers Care Deliverer Food Name Role Phone Onesimo Bruno MD Primary Care Provider [phone] Bhavna Mac PharmD Unavailable Isaac Bro RN Unavailable [phone] Onesimo Bruno MD Unavailable [phone] Flo Henry MD Unavailable Jana Vick Unavailable Unavailabl e Lorri Larsen MD Unavailable [phone] Rafita Ayers MD Unavailable Kaelyn New Unavailable [phone] Marino Hayes MD Unavailable Nataliia Gomez MD Unavailable Reason for Visit * Reason Comments Medication Refill Encounter Details Date Type Department Care Team (Late st Contact Info) Description 09/14/2023 Refill [facility] 139[address] [place] [phone] Onesimo Bruno MD [address] [place], [place] [phone] Medication Refill Social History Tobacco Use Types [...] in an abandoned building, in an overnight jail, or couch-surfing.) Yes 02/15/2023 Are you worried [...] st Contact Info) Description 01/05/2024 1:00 PM DRYWALL PROFESSIONAL Office Visit [facility] [address] [place] [address] Onesimo Bruno MD [address] [place] [address] documented as of this encounter Goals Goal [...] continue to work with my Weight Watcher's instructional technology coach and start attending their Webinars. 4. I will report progress towards this goal at outreach telephone calls from the [facility] team Discussed 08/12/23 documented as of this encounter Visit Diagnoses Diagnosis Atherosclerosis of [place] coronary artery of tor[place] heart without angina pectoris documented in this encounter Additional Health Concerns Active Problems Noted Date Diagnosed Date HP GENERAL PROBLEM 11/13/2021 Assessment Noted Time PHQ-9 Depression Total Score: 7 12/09/19 23 11:14 AM CDT documented as of this encounter Care Teams Deliverer Food Relationship Specialty Start Date End Date Onesimo Bruno MD PCP - General 08/11/06 Bhavna Mac PharmD [address] [place] [address] Pharmacist Pharmacist 07/11/18 Isaac Bro, RN Lead Metal Sheet Roller Operator Primary Care - CC 09/01/18 Onesimo Bruno MD [address] [place] [address] Assigned PCP 07/30/20 Flo Henry MD 1875 [facility] [address] [place] [address] Assigned Behavioral Health Provider 09/21/20 Jana Vick, W Community Health Worker Primary Care - CC 06/08/21 Lorri Larsen MD 909 [place] [address] Otolaryngology 07/21/21 Rafita yAers MD 909 [place] [address] Critical Care 11/30/21 Kaelyn New, AuD 1825 [place] [address] Predatory Hunter Audiology 12/09/21 Marino Hayes MD [address] [place] [address] Cardiovascular Disease 09/28/22 Nataliia Gomez MD [address] [place] [address], [address] [place] [address] Assigned Heart and Vascular Provider 06/07/23 documented as of this encounter
--- OUTSIDE RECORDS SUMMARY | 2023-11-14 18:37 | XMS_ITS | Encounter Summary ---
Author Organization [place] Address [address] [place] [address] Care Team Providers Care Converting Technician Name Role Phone Onesimo Bruno MD Primary Care Provider [phone] Bhavna Mac PharmD Unavailable [phone] Isaac Bro RN Unavailable [phone] Onesimo Bruno MD Unavailable [phone] Flo Henry MD Unavailable [phone] Jana Vick Unavailable Unavailabl e Lorri Larsen MD Unavailable [phone] Rafita Ayers MD Unavailable [phone] Kaelyn New AuD Unavailable [phone] Marino Hayes MD Unavailable [phone] Nataliia Gomez MD Unavailable Reason for Visit * Reason Comments Medication Refill Encounter Details Date Type Department Care Team (Late st Contact Info) Description [facility] [address] [place] [address] Flo Henry MD [address] [address] Medication Refill Social History Tobacco [...] st Contact Info) Description 01/05/2024 1:00 PM EXTRA HAND Office Visit [facility] [address] [place] [phone] Onesimo Bruno MD 1390 [place] [address] documented as of this encounter Goals Goal [...] from the [facility] team Discussed 08/12/23 documented as of this encounter Visit Diagnoses Diagnosis Neurocognitive disorder Unspecified persistent mental disorders due to conditions classified elsewhere documented in this encounter Additional Health Concerns Active Problems Noted Date Diagnosed Date HP GENERAL PROBLEM 11/13/2021 Assessment Noted Time PHQ-9 Depression Total Score: 7 12/09/19 23 11:14 AM CDT documented as of this encounter Care Teams Converting Technician Relationship Specialty Start Date End Date Onesimo Bruno MD PCP - General 08/11/06 Bhavna Mac, GenesisD [address]70 [place] [address] Pharmacist Pharmacist 07/11/18 Isaac Bro, RN Lead Mirror Fabrication Supervisor Primary Care - CC 09/01/18 Onesimo Bruno MD 1390 [place] [address] Assigned PCP 07/30/20 Flo Henry MD [address] [id number] Assigned Behavioral Health Provider 09/21/20 Jana Vick, W Community Health Worker Primary Care - CC 06/08/21 Lorri Larsen MD [address] [place] [address] Otolaryngology 07/21/21 Rafita Ayers MD [address] [place] [address] Critical Care 11/30/21 Kaelyn New, Shena [facility]5 [place], [place] [phone] Oceanographic Meteorologist Audiology 12/09/21 Marino Hayes MD [address] [place] [address] Cardiovascular Disease 09/28/22 Nataliia Gomez MD [address] [facility], [address] [place] [address] Assigned Heart and Vascular Provider 06/07/23 documented as of this encounter
--- OUTSIDE RECORDS SUMMARY | 2023-11-14 18:37 | XMS_ITS | Encounter Summary ---
Author Organization [place] Address [address] [place] [address] Care Team Providers Care Paperhanger Apprentice Name Role Phone Onesimo Bruno MD Primary Care Provider Bhavna Mac PharmD Unavailable Isaac Bro RN Unavailable [phone] Onesimo Bruno MD Unavailable [phone] Flo Henry MD Unavailable Jana Vick Unavailable Unavailabl e Lorri Larsen MD Unavailable Rafita Ayers MD Unavailable Kaelyn New Unavailable Marino Hayes MD Unavailable Nataliia Gomez MD Unavailable Reason for Visit * Reason Comments Medication Refill Encounter Details Date Type Department Care Team (Late st Contact Info) Description 09/16/2023 Refill [facility] 1390 [place] [phone] Onesimo Bruno MD 1390 [place], [place] [phone] Medication Refill Social History Tobacco Use Types [...] st Contact Info) Description 01/05/2024 1:00 PM SENIOR SYSTEMS DEVELOPER Office Visit [facility] 1390 [place] [phone] Onesimo Bruno MD 1390 [place] [address] documented as of this encounter Goals Goal [...] to work with my Weight Watcher's coach mechanic and start attending their Webinars. 4. I will report progress towards this goal at outreach telephone calls from the [facility] team Discussed 08/12/23 documented as of this encounter Visit Diagnoses Diagnosis Urinary retention Retention of urine, unspecified documented in this encounter Additional Health Concerns Active Problems Noted Date Diagnosed Date HP GENERAL PROBLEM 11/13/2021 Assessment Noted Time PHQ-9 Depression Total Score: 7 12/09/19 23 11:14 AM CDT documented as of this encounter Care Teams Paperhanger Apprentice Relationship Specialty Start Date End Date Onesimo Bruno MD PCP - General 08/11/06 Bhavna Mac PharmD 870 [place] [address] Pharmacist Pharmacist 07/11/18 Isaac Bro, RN Lead Frit Burner Primary Care - CC 09/01/18 Onesimo Bruno MD 1390 [place] [address] Assigned PCP 07/30/20 Flo Henry MD 1875 [facility] [address] [place] [address] Assigned Behavioral Health Provider 09/21/20 Jana Vick, W Community Health Worker Primary Care - CC 06/08/21 Lorri Larsen MD 909 [place] [address] Otolaryngology 07/21/21 Rafita Ayers MD [address] [place] [address] Critical Care 11/30/21 Kaelyn New AuD 1825 [place] [address] Last Greaser Audiology 12/09/21 Marino Hayes MD [address] [place] [address] Cardiovascular Disease 09/28/22 Nataliia Gomez MD [address] [place] [address], [address] [place] [address] Assigned Heart and Vascular Provider 06/07/23 documented as of this encounter
--- OUTSIDE RECORDS SUMMARY | 2023-11-14 18:37 | XMS_ITS | Encounter Summary ---
Author Organization [place] Address [address] [place] [address] Care Team Providers Care Glove Cutter Name Role Phone Onesimo Bruno MD Primary Care Provider Bhavna Mac PharmD Unavailable Isaac Bro RN Unavailable [phone] Onesimo Bruno MD Unavailable [phone] Flo Henry MD Unavailable Jana Vick CHW Unavailable Unavailabl e Lorri Larsen MD Unavailable Rafita Ayers MD Unavailable [phone] Kaelyn New Unavailable [phone] Marino Hayes MD Unavailable Nataliia Gomez MD Unavailable Reason for Visit * Reason Onset Date Comments Refill Request 08/12/2023 buPROPion (WELLB UTRIN SR) 100 MG 12 hr tablet Encounter Details Date Type Department Care Team (Late st Contact Info) Description 08/12/[address] [facility] [address] [phone] Flo Henry MD [address] [place] [phone] Refill Request (buPROPion (WELLBUTRIN SR) 100 MG [...] Brianna Abdalla - 08/12/2023 12:23 PM CDT [facility] Call Center Phone Message May a detailed message be left on voicemail: yes Reason for Call: Medication Refill Request Has the patient contacted the pharmacy for the refill? Yes Name of medication being requested: buPROPion (WELLBUTRIN SR) 100 MG 12 hr tablet Provider who prescribed the medication: Flo Henry Pharmacy: [facility] - [address] Date medication is needed: Before 08/26/23 Action Taken: Other: Neurology Travel Screening: Not Applicable documented in this encounter Plan of Treatment Upcoming Encounters Date Type Department Care Team (Late st Contact Info) Description 01/05/2024 1:00 PM MAINTENANCE CRAFTSMAN Office Visit [facility] [address] [place] [phone] Onesimo Bruno MD [facility] [place] [address] documented as of this encounter Goals Goal [...] from the [facility] team Discussed 08/12/23 documented as of this encounter Visit Diagnoses Diagnosis Neurocognitive disorder Unspecified persistent mental disorders due to conditions classified elsewhere documented in this encounter Additional Health Concerns Active Problems Noted Date Diagnosed Date HP GENERAL PROBLEM 11/13/2021 Assessment Noted Time PHQ-9 Depression Total Score: 7 12/09/19 23 11:14 AM CDT documented as of this encounter Care Teams Glove Cutter Relationship Specialty Start Date End Date Onesimo Bruno MD PCP - General 08/11/06 Bhavna Mac, PharmD 870 [place] [address] Pharmacist Pharmacist 07/11/18 Isaac Bro, RN Lead Registered Medical Transcriptionist Primary Care - CC 09/01/18 Onesimo Bruno MD [facility] [place] [address] Assigned PCP 07/30/20 Flo Henry MD [facility] [address] Assigned Behavioral Health Provider 09/21/20 Jana Vick CHW Community Health Worker Primary Care - CC 06/08/21 Lorri Larsen MD [address] [place] [address] Otolaryngology 07/21/21 Rafita Ayers MD 909 [place] [address] Critical Care 11/30/21 Kaelyn New AuD 1825 [place] [address] Furniture Finisher Apprentice Audiology 12/09/21 Marino Hayes MD 6 [place] [address] Cardiovascular Disease 09/28/22 Nataliia Gomez MD 1600 [facility], [address] [place] [address] Assigned Heart and Vascular Provider 06/07/23 documented as of this encounter
--- OUTSIDE RECORDS SUMMARY | 2023-11-14 18:37 | XMS_ITS | Encounter Summary ---
Author Organization [facility] Address [address] [place] [address] Care Team Providers Care Biodiesel Engineering Manager Name Role Phone Onesimo Bruno MD Primary Care Provider Bhavna Mac PharmD Unavailable Isaac Bro RN Unavailable [phone] Onesimo Bruno MD Unavailable [phone] Flo Henry MD Unavailable [phone] Jana Vick CHW Unavailable Unavailabl e Lorri Larsen MD Unavailable [phone] Rafita Ayers MD Unavailable [phone] Kaelyn New Unavailable [phone] Marino Hayes MD Unavailable [phone] Nataliia Gomez MD Unavailable Reason for Visit * Reason Onset Date Comments [facility] 08/16/2023 Encounter Details Date Type Department Care Team (Late st Contact Info) Description 08/16/2023 Telephone [facility] 1390 [place] [phone] Onesimo Bruno MD 1390 [place], [place] [phone] [facility] Social History Tobacco [...] 8:49 AM CDT August 16, 2023 [facility] was received via fax for Dr. Bruno. Patient label was attached to paperwork and placed in provider's inbox to be signed. Chanda Calix documented in this encounter Plan of Treatment Upcoming Encounters Date Type Department Care Team (Late st Contact Info) Description 01/05/2024 1:00 PM DIGITAL MARKETING ASSISTANT Office Visit [facility] 139[address] [place] [address] Onesimo Bruno MD 1390 [place] [address] documented as of this encounter Goals Goal [...] continue to work with my Weight Watcher's public speaking coach and start attending their Webinars. 4. I will report progress towards this goal at outreach telephone calls from the [facility] team Discussed 08/12/23 documented as of this encounter Visit Diagnoses Not on filedocumented in this encounter Additional Health Concerns Active Problems Noted Date Diagnosed Date HP GENERAL PROBLEM 11/13/2021 Assessment Noted Time PHQ-9 Depression Total Score: 7 12/09/19 23 11:14 AM CDT documented as of this encounter Care Teams Biodiesel Engineering Manager Relationship Specialty Start Date End Date Onesimo Bruno MD PCP - General 08/11/06 Bhavna Mac, Elio [address] [place] [address] Pharmacist Pharmacist 07/11/18 Isaac Bro, RN Lead Manager Dairy Primary Care - CC 09/01/18 Onesimo Bruno MD 1390 [place] [address] Assigned PCP 07/30/20 Flo Henry MD [facility] [address] [address] Assigned Behavioral Health Provider 09/21/20 Jana Vick, W Community Health Worker Primary Care - CC 06/08/21 Lorri Larsen MD [address] [place] [address] Otolaryngology 07/21/21 Rafita Ayers MD [address] [place] [address] Critical Care 11/30/21 Kaelyn New AuD [facility]5 [place] [address] Other Wood Processing Machine Operator Audiology 12/09/21 Marino Hayes MD [address] [place] [address] Cardiovascular Disease 09/28/22 Nataliia Gomez MD [address] [place] [address], [address] [place] [address] Assigned Heart and Vascular Provider 06/07/23 documented as of this encounter
--- OUTSIDE RECORDS SUMMARY | 2023-11-14 18:37 | XMS_ITS | Encounter Summary ---
Author Organization [place] Address [address] [place] [address] Care Team Providers Care Seed Cleaner Operator Name Role Phone Johana Bruno MD Primary Care Provider Bhavna Mac PharmD Unavailable [phone] Isaac Bro RN Unavailable [phone] Johana Bruno MD Unavailable [phone] Flo Henry MD Unavailable [phone] Jana Vick Unavailable Unavailabl e Lorri Larsen MD Unavailable [phone] Rafita Ayers MD Unavailable [phone] Kaelyn New Unavailable Marino Hayes MD Unavailable [phone] Nataliia Gomez MD Unavailable Reason for Referral * CV Testing (Routine) - Pending Review Specialty Diagnoses / Procedures Referred By Contac t Referred To Contact Diagnoses Syncope, unspecified syncope type Procedures ZIO PATCH MAIL OUT Johana Bruno MD [facility] [place] [address] Referral ID Status Reason Start Date Expiration Date V isits Requested Visits Authorized [id number] Pending Review 09/26/2023 09/25/2024 1 1 * CV Testing (Routine) - Authorized Specialty Diagnoses / Procedures Referred By Contac t Referred To Contact Internal Medicine Diagnoses Syncope, unspecified syncope type Procedures Echocardiogram Complete ZZHC TTE W/DOPPLER, COMPLETE ZZHC ECHO COMPLETE W DOPPLER W CONTRAST ZZHC ECHO COMPLETE W DOPPLER W/O CONTRAST ZZHC IV PUSH SINGLE, INITIAL SUBSTANCE ZZHC US GUIDE FOR PERICARDIOCENTESIS ZZHC ECHO MYOCARD BX ZZC INJECTION, PERFLUTREN LIPID MICROSPHERES, PER ML ZZHC STATISTIC IV PUSH SINGLE INITIAL SUBSTANCE CA ECHO MYOCARD BX CA INJECTION, PERFLUTREN LIPID MICROSPHERES, PER ML CA TTE W/DOPPLER, COMPLETE CA IV PUSH SINGLE, INITIAL SUBSTANCE CA TTE W/DOPPLER, COMPLETE CA TTE W/DOPPLER, COMPLETE HC US GUIDE FOR PERICARDIOCENTESIS HC ECHO MYOCARD BX HC IV PUSH SINGLE, INITIAL SUBSTANCE HC STATISTIC IV PUSH SINGLE INITIAL SUBSTANCE HC ECHO COMPLETE W DOPPLER W CONTRAST HC ECHO COMPLETE W DOPPLER W/O CONTRAST Johana Bruno MD [address] [place] [address] [facility] Internal Medicine [address] [place] [phone] Referral ID Status Reason Start Date Expiration Date V isits Requested Visits Authorized [id number] Authorized 09/26/2023 09/25/2024 1 1 Reason for Visit * Reason Comments Hospital F/U Seen in [facility] on 09/06/23 to fainting mary carmen Encounter Details Date Type Department Care Team (Late st Contact Info) Description 09/26/2023 11:40 AM CDT Office Visit [address] [address] Johana Bruno MD [address] [place] [id number] Syncope, unspecified syncope type (Primary Dx); Orthostatic hypotension; Right bundle branch block; Benign Essential Hypertension; Atherosclerosis of [place] coronary artery of [place] heart, unspecified whether angina present; Stage 3a chronic kidney disease (H) Social [...] Mass Index 41.64 09/26/2023 11:34 AM CDT documented in this encounter Progress Notes * Johana Bruno MD - 09/26/2023 11:40 AM CDT 1. Syncope, unspecified syncope type Possibly orthostatic. Discontinue lisinopril but I did discuss with him he is on a lot of other medications that can cause orthostatic hypotension. I have asked that he undergo echo and Zio patch to complete the workup. Follow-up with bag machine operator as well if needed. - Echocardiogram Complete; Future - ZIO PATCH MAIL OUT; Future 2. Orthostatic hypotension As above. Discontinue lisinopril. 3. Right bundle branch block Check echo. This was a new finding on his recent ECG. 4. Benign Essential Hypertension As above. Hold lisinopril. 5. Atherosclerosis of [place] coronary artery of [place] heart, unspecified whether angina present No chest pains. 6. Stage 3a chronic kidney disease (H) Recent renal function in the emergency room stable. The longitudinal plan of care for the diagnosis(es)/condition(s) as documented were addressed during this visit. Due to the added complexity in care, I will continue to support Roger in the subsequent management and with ongoing continuity of care. Daysi Duran is a 72 year old, presenting for the following health issues: Hospital F/U (Seen in [facility] on 09/06/23 to fainting mary carmen ) History of Present Illness Reason for visit: Can we dc lisinopril jesica passed out again Symptom onset: More than a month Symptoms include: Syncope upon cough and standing Symptom intensity: Moderate He eats 2-3 servings of fruits and vegetables daily.He consumes 0 sweetened beverage(s) daily.He exercises with enough effort to increase his heart rate 10 to 19 minutes per day. He exercises with enough effort to increase his heart rate 6 days per week. He is taking medications regularly. Roger comes in today with his [place] for general review and for ER follow-up. [facility]. He got up quickly from his chair to go get the door as someone was ringing the doorbell. He felt himself getting dizzy and then landed on the ground. Was not out for very long. Was in the emergency room. Had a extensive evaluation found nothing was found. He wonders if he can discontinue his lisinopril. He has had difficulty with compliance in the past. He was not taking his venlafaxine for a while. He got quite depressed. Now back on it. He is losing his psychiatrist who is leaving the [place] apparently. This has been traumatic for him. There is no other new things to report. He has done a little travel to [place] for a and [facility] Objective BP 114/62 (BP Location: Left arm, Patient Position: Sitting, Cuff Size: Adult Large) Pulse 80 Temp 97.8 ??F (36.6 ??C) (Tympanic) Resp 20 Ht 1.829 m (6') Wt 139.3 kg (307 lb) SpO2 96% BMI 41.64 kg/m?? Body mass index is 41.64 kg/m??. Physical Exam Pleasant obese gentleman in no distress. Somewhat pressured speech today. No other symptoms or signs of jose juan or hypomania. Signed Electronically by: JOHANA BRUNO MD documented in this encounter Plan of Treatment Upcoming Encounters Date Type Department Care Team (Late st Contact Info) Description 01/05/2024 1:00 PM THRESHING MACHINE OPERATOR Office Visit [facility] 1390 [place] [address] [place] [address] [place] [address] Scheduled Orders Name Type Priority Associated Diagnoses Orde r Schedule Echocardiogram Complete Echocardiography Routine Syncope, unspecified syncope type Expected: 09/27/2023 (Approximate), Expires: 09/25/2024 documented as of this encounter Goals Goal [...] to work with my Weight Watcher's girls tennis coach and start attending their Webinars. 4. I will report progress towards this goal at outreach telephone calls from the [facility] team Discussed 08/12/23 documented as of this encounter Results * ZIO PATCH MAIL [...] by Mauricio Olivo MD 11/03/2023 ??3:36 PM Johana Bruno MD [facility] CARDIAC SERVICES ORDERABLES documented in this encounter Visit Diagnoses Diagnosis Syncope, unspecified syncope type- Primary Orthostatic hypotension Right bundle branch block Benign Essential Hypertension Essential hypertension, benign Atherosclerosis of [place] coronary artery of [place] heart, unspecified whether angina present Stage 3a chronic kidney disease (H) Syncope, unspecified syncope type documented in this encounter Additional Health Concerns Active Problems Noted Date Diagnosed Date HP GENERAL PROBLEM 11/13/2021 Assessment Noted Time PHQ-9 Depression Total Score: 7 12/09/19 23 11:14 AM CDT documented as of this encounter Care Teams Seed Cleaner Operator Relationship Specialty Start Date End Date Johana Bruno MD PCP - General 08/11/06 Bhavna Mac, GenesisD [address] [place] [address] Pharmacist Pharmacist 07/11/18 Isaac Bro, RN Lead Card Hand Primary Care - CC 09/01/18 Johana Bruno MD 1390 [place] [address] Assigned PCP 07/30/20 Flo Henry MD [address] [place] [address] Assigned Behavioral Health Provider 09/21/20 Jana Vick Vaibhav Community Health Worker Primary Care - CC 06/08/21 Lorri Larsen MD [address] [place] [address] Otolaryngology 07/21/21 Rafita Ayers MD [address] [place] [address] 735185 Critical Care 11/30/21 Kaelyn New AuD 1825 [place] [address] Electric Repair Supervisor Audiology 12/09/21 Marino Hayes MD 6 [place] [address] Cardiovascular Disease 09/28/22 Nataliai Gomez MD 1600 [facility], [address] [place] [address] Assigned Heart and Vascular Provider 06/07/23 documented as of this encounter
--- OUTSIDE RECORDS SUMMARY | 2023-11-14 18:37 | XMS_ITS | Encounter Summary ---
Author Organization [place] Address [address] [place] [address] Care Team Providers Care Bush And Vine Farmer Fruit Crops Name Role Phone Onesimo Bruno MD Primary Care Provider Bhavna Mac PharmD Unavailable Isaac Bro RN Unavailable [phone] Onesimo Bruno MD Unavailable [phone] Flo Henry MD Unavailable [phone] Jana Vick CHW Unavailable Unavailabl e Lorri Larsen MD Unavailable Rafita Ayers MD Unavailable [phone] Kaelyn New AuD Unavailable [phone] Marino Hayes MD Unavailable Nataliia Gomez MD Unavailable Reason for Visit * Reason Onset Date Comments Refill Request 08/29/2023 Encounter Details Date Type Department Care Team (Late st Contact Info) Description 08/29/2023 [facility] Neurology Clinic [place] [address] [place] [phone] Flo Henry MD [address] [phone] Refill Request Social History Tobacco Use Types [...] st Contact Info) Description 01/05/2024 1:00 PM LINE FIXER Office Visit [facility] [address] [place] [address] [place] [address] [place] [address] documented as of this encounter Goals Goal [...] to work with my Weight Watcher's women's basketball coach and start attending their [...] documented as of this encounter Care Teams Bush And Vine Farmer Fruit Crops Relationship Specialty Start Date End Date Onesimo Bruno MD PCP - General 08/11/06 Bhavna Mac, Elio [address] [place] [address] Pharmacist Pharmacist 07/11/18 Isaac Bro, RN Lead Business Systems Analyst Primary Care - CC 09/01/18 Onesimo Bruno MD 1390 [place] [address] Assigned PCP 07/30/20 Flo Henry MD [address] [place] [address] Assigned Behavioral Health Provider 09/21/20 Jana Vick, CHW Community Health Worker Primary Care - CC 06/08/21 Lorri Larsen MD [address] [place] [address] 2399[address] Otolaryngology 07/21/21 Rafita Ayers MD [address] [place] [address] Critical Care 11/30/21 Kaelyn New, AuD [address] [place] [address] Police Communications Operator Audiology 12/09/21 Marino Hayes MD [address] [place] [address] Cardiovascular Disease 09/28/22 Nataliia Gomez MD 1600 [facility], [address] [place] [address] Assigned Heart and Vascular Provider 06/07/23 documented as of this encounter
--- OUTSIDE RECORDS SUMMARY | 2023-11-14 18:37 | XMS_ITS | Encounter Summary ---
Author Organization [place] Address [address] [place] [address] Care Team Providers Care Lending Manager Name Role Phone Onesimo Bruno MD Primary Care Provider Bhavna Mac PharmD Unavailable Isaac Bro RN Unavailable [phone] Onesimo Bruno MD Unavailable [phone] Flo Henry MD Unavailable Jana Vick Unavailable Unavailabl e Lorri Larsen MD Unavailable Rafita Ayers MD Unavailable Kaelyn New AuD Unavailable Marino Hayes MD Unavailable Nataliia Gomez MD Unavailable Reason for Visit * Reason Comments Medication Refill Encounter Details Date Type Department Care Team (Late st Contact Info) Description 09/03/2023 Refill [facility] 1874 [place] [address] Flo Henry MD [address] [address] Medication Refill Social History Tobacco [...] in an abandoned building, in an overnight assisted, or couch-surfing.) Yes 02/15/2023 Are you worried [...] st Contact Info) Description 01/05/2024 1:00 PM AQUATIC LABORER Office Visit [facility] [address] [place] [address] Onesimo Bruno MD 1390 [place] [address] documented as of this encounter Goals Goal [...] documented as of this encounter Care Teams Lending Manager Relationship Specialty Start Date End Date Onesimo Bruno MD PCP - General 08/11/06 Bhavna Mac, Elio 870 [place] [address] Pharmacist Pharmacist 07/11/18 Isaac Bro, RN Lead Instrument Designer Primary Care - CC 09/01/18 Onesimo Bruno MD 1390 [place] [address] Assigned PCP 07/30/20 Flo Henry MD [address] [id number] Assigned Behavioral Health Provider 09/21/20 Jana Vick, CHW Community Health Worker Primary Care - CC 06/08/21 Lorri Larsen MD [address] [place] [address] Otolaryngology 07/21/21 Rafita Ayers MD [address] [place] [address] Critical Care 11/30/21 Kaelyn New AuD 1825 [place], [place] [phone] Public Health Educator Audiology 12/09/21 Marino Hayes MD [address] [place] [address] [id number] Cardiovascular Disease 09/28/22 Nataliia Gomez MD 1600 [facility], [address] [place] [address] Assigned Heart and Vascular Provider 06/07/23 documented as of this encounter
--- OUTSIDE RECORDS SUMMARY | 2023-11-14 18:37 | XMS_ITS | Encounter Summary ---
Author Organization [place] Address [address] [place] [address] Care Team Providers Care Frame Changer Name Role Phone Onesimo Bruno MD Primary Care Provider Bhavna Mac PharmD Unavailable [phone] Isaac Bro RN Unavailable [phone] Onesimo Bruno MD Unavailable [phone] Flo Henry MD Unavailable [phone] Jana Vick Unavailable Unavailabl e Lorri Larsen MD Unavailable [phone] Rafita Ayers MD Unavailable Kaelyn New Unavailable [phone] Marino Hayes MD Unavailable Nataliia Gomez MD Unavailable Reason for Visit * Reason Comments Medication Refill Encounter Details Date Type Department Care Team (Late st Contact Info) Description 08/24/2023 Refill [facility] 1390 [place] [phone] Onesimo Bruno MD 1390 [place], [place] [phone] Medication Refill Social History Tobacco Use Types [...] st Contact Info) Description 01/05/2024 1:00 PM FILTER WORKER Office Visit [facility] 1390 [place] [address] Onesimo Bruno MD [address] [place] [address] documented as of this encounter Goals Goal [...] this encounter Visit Diagnoses Diagnosis Atherosclerosis of ione coronary artery of ione heart without angina pectoris documented in this encounter Additional Health Concerns Active Problems Noted Date Diagnosed Date HP GENERAL PROBLEM 11/13/2021 Assessment Noted Time PHQ-9 Depression Total Score: 7 12/09/19 23 11:14 AM CDT documented as of this encounter Care Teams Frame Changer Relationship Specialty Start Date End Date Onesimo Bruno MD PCP - General 08/11/06 Bhavna Mac PharmD 870 [place] [address] Pharmacist Pharmacist 07/11/18 Isaac Bro, RN Lead Radiation Oncology Manager Primary Care - CC 09/01/18 Onesimo Bruno MD 1390 [place] [address] Assigned PCP 07/30/20 Flo Henry MD 1875 [facility] [address] [place] [address] Assigned Behavioral Health Provider 09/21/20 Jana Vick, W Community Health Worker Primary Care - CC 06/08/21 Lorri Larsen MD 909 [place] [address] Otolaryngology 07/21/21 Rafita Ayers MD 909 [place] [address] Critical Care 11/30/21 Kaelyn New, AuD 1825 [place] [address] Pecan Cleaner Audiology 12/09/21 Marino Hayes MD [address] [place] [address] Cardiovascular Disease 09/28/22 Nataliia Gomez MD [address] [place] [address], [address] [place] [address] Assigned Heart and Vascular Provider 06/07/23 documented as of this encounter
--- OUTSIDE RECORDS SUMMARY | 2023-11-14 18:38 | XMS_ITS | Encounter Summary ---
Author Organization [facility] Address [address] [place] [address] Care Team Providers Care Greens Laborer Name Role Phone Onesimo Bruno MD Primary Care Provider [phone] Bhavna Mac PharmD Unavailable [phone] Isaac Bro RN Unavailable [phone] Onesimo Bruno MD Unavailable [phone] Nataliia Gomez MD Unavailable Rafita Ayers MD Unavailable [phone] Flo Henyr MD Unavailable [phone] Jana Vick W Unavailable Unavailabl Lorri Luo MD Unavailable +[phone] Lorri Larsen MD Unavailable [phone] Rafita Ayers MD Unavailable +[phone] Kaelyn New Unavailable [phone] Marino Hayes MD Unavailable + [phone] Marino Hayes MD Unavailable + [phone] Nataliia Gomez MD Unavailable Reason for Visit * Reason Comments Medication Refill Encounter Details Date Type Department Care Team (Late st Contact Info) Description 05/30/2022 [facility] Heart [facility] 1600 [facility] [address] [place] [address] Nataliia Gomez MD 1600 [facility], [address] [place] [address] Medication Refill Social History Tobacco Use Types [...] st Contact Info) Description 01/05/2024 1:00 PM BEARING PRESS MACHINE OPERATOR Office Visit [facility] [address] [place] [phone] Onesimo Bruno MD 1390 [place] [address] documented as of this encounter Goals Goal [...] continue to work with my Weight Watcher's math coach and start attending their Webinars. 4. [...] Total Score: 8 04/16/19 23 9:42 AM BEARING PRESS MACHINE OPERATOR documented as of this encounter Care Teams Greens Laborer Relationship Specialty Start Date End Date Onesimo Bruno MD PCP - General 08/11/06 Bhavna Mac, GenesisD 870 [place] [address] Pharmacist Pharmacist 07/11/18 Isaac Bro, RN Lead Trimmer Operator Primary Care - CC 09/01/18 Onesimo Bruno MD 1390 [place] [address] Assigned PCP 07/30/20 Nataliia Gomez MD 1600 [facility], [address] [place] [address] Assigned Heart and Vascular Provider 08/29/20 10/08/22 Rafita Ayers MD [address] [place] [address] Assigned Pulmonology Provider 10/12/20 06/06/23 Flo Henry MD [facility] [address] [address] Assigned Behavioral Health Provider 09/21/20 Jana Vick W Community Health Worker Primary Care - CC 06/08/21 Lorri Larsen MD [address] [place] [address]63[address] Otolaryngology 07/21/21 Lorri Larsen MD 909 [place] [address] Assigned Surgical Provider 10/10/21 04/28/23 Rafita Ayers MD [address] [place] [address] Critical Care 11/30/21 Kaelyn New, [place] [address] [place] [address] Leather Sprayer Audiology 12/09/21 Marino Hayes MD [address] [place] [address] Cardiovascular Disease 09/28/22 Marino Hayes MD [address] [place] [address] Assigned Heart and Vascular Provider 10/09/22 06/06/23 Nataliia Gomez MD [address] [place] [address], [address] [place] [address] Assigned Heart and Vascular Provider 06/07/23 documented as of this encounter
--- OUTSIDE RECORDS SUMMARY | 2023-11-14 18:38 | XMS_ITS | Encounter Summary ---
Author Organization [facility] Address [address] [place] [address] Care Team Providers Care Computator Name Role Phone Onesimo Bruno MD Primary Care Provider [phone] Bhavna Mac PharmD Unavailable [phone] Isaac Bro RN Unavailable [phone] Onesimo Bruno MD Unavailable [phone] Nataliia Gomez MD Unavailable Luly Grant MD Unavailable +[phone] Rafita Ayers MD Unavailable +[phone] Flo Henry MD Unavailable [phone] Jana Vick CHW Unavailable Unavailabl Tor Saldana DPM Unavailable +[phone] Lorri Larsen MD Unavailable [phone] Lorri Larsen MD Unavailable +[phone] Rafita Ayers MD Unavailable +[phone] Kaelyn New Unavailable [phone] Marino Hayes MD Unavailable + [phone] Marino Hayes MD Unavailable + [phone] Nataliia Gomez MD Unavailable Encounter Details Date Type Department Care Team (Late st Contact Info) Description 01/15/2022 MyC Medical Advice [facility] [address] [place] [address] Joy Zuniga Social History Tobacco Use Types [...] Coronavirus/COVID-19? 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 PATROL GUARD documented as of this encounter Plan of Treatment Upcoming Encounters Date Type Department Care Team (Late st Contact Info) Description 01/05/2024 1:00 PM PATROL GUARD Office Visit [facility] 1390 [place] [address] [place] [address] [place] [address] documented as of this encounter Goals Goal [...] continue to work with my Weight Watcher's cross country and track and field coach and start attending their Webinars. 4. I will report progress towards this goal at outreach telephone calls from the [facility] team Discussed 08/12/23 documented as of this encounter Visit Diagnoses Not on filedocumented in this encounter Additional Health Concerns Active Problems Noted Date Diagnosed Date HP GENERAL PROBLEM 11/13/2021 Assessment Noted Time PHQ-9 Depression Total Score: 10 024 9:49 AM CDT documented as of this encounter Care Teams Computator Relationship Specialty Start Date End Date Onesimo Bruno MD PCP - General 08/11/06 Bhavna Mac, GenesisD [address]70 [place] [address] Pharmacist Pharmacist 07/11/18 Isaac Bro, RN Lead Chicken Sexer Primary Care - CC 09/01/18 Onesimo Bruno MD 1390 [place] [address] Assigned PCP 07/30/20 Nataliia Gomez MD 1600 [facility], [address] [place], [place] [address] Assigned Heart and Vascular Provider 08/29/20 10/08/22 Luly Grant MD 1655 [facility] [address] [place] [address] Assigned Allergy Provider 08/29/20 04/16/22 Rafita Ayers MD 909 [place] [address] Assigned Pulmonology Provider 10/12/20 06/06/23 Flo Henry MD [facility] [address] [address] Assigned Behavioral Health Provider 09/21/20 Jana Vick W Community Health Worker Primary Care - CC 06/08/21 Tor Joseph DPM 2945 [facility] [address] [place] [address] Assigned Musculoskeletal Provider 07/05/21 03/19/22 Lorri Larsen MD [address] [place] [address] Otolaryngology 07/21/21 Lorri Larsen MD [address] [place] [address] Assigned Surgical Provider 10/10/21 04/28/23 Rafita Ayers MD [address] [place] [address] Critical Care 11/30/21 Kaelyn New AuD 1825 [place] [address] Shuttleless Loom Weaver Audiology 12/09/21 Marino Hayes MD [address] [place] [address] Cardiovascular Disease 09/28/22 Marino Hayes MD [address] [place] [address] Assigned Heart and Vascular Provider 10/09/22 06/06/23 Nataliia Gomez MD 1600 [facility], [address] [place] [address] Assigned Heart and Vascular Provider 06/07/23 documented as of this encounter
--- OUTSIDE RECORDS SUMMARY | 2023-11-14 18:38 | XMS_ITS | Encounter Summary ---
Author Organization [facility] Address [address] [place] [address] Care Team Providers Care Home Attendant Name Role Phone Onesimo Bruno MD Primary Care Provider [phone] Bhavna Mac PharmD Unavailable [phone] Isaac Bro RN Unavailable [phone] Onesimo Bruno MD Unavailable [phone] Nataliia Gomez MD Unavailable Luly Grant MD Unavailable +[phone] Rafita Ayers MD Unavailable +[phone] Fol Henry MD Unavailable +[phone] Jana Vick CHW Unavailable Unavailabl Tor Saldana DPM Unavailable +[phone] Lorri Larsen MD Unavailable [phone] Lorri Larsen MD Unavailable +[phone] Rafita Ayers MD Unavailable +[phone] Kaelyn New Unavailable [phone] Marino Hayes MD Unavailable [phone] Marino Hayes MD Unavailable + [phone] Nataliia Gomez MD Unavailable Reason for Visit * Reason Comments Medication Refill Encounter Details Date Type Department Care Team (Late st Contact Info) Description 01/22/2022 Refill [facility] 1600 [facility] [address] [place] [address] Nataliia Gomez MD 1600 [facility], [address] [place] [address] Medication Refill Social History Tobacco Use Types [...] Coronavirus/COVID-19? 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 ANDROID DEVELOPER documented as of this encounter Plan of Treatment Upcoming Encounters Date Type Department Care Team (Late Contact Info) Description 01/05/2024 1:00 PM ANDROID DEVELOPER Office Visit [facility] 1390 [place] [address] [place] [address] [place] [address] documented as of this encounter Goals Goal [...] continue to work with my Weight Watcher's graduation coach and start attending their Webinars. 4. I will report progress towards this goal at outreach telephone calls from the [facility] team Discussed 08/12/23 documented as of this encounter Visit Diagnoses Diagnosis Elevated brain natriuretic peptide (BNP) level Other nonspecific findings on examination of blood documented in this encounter Additional Health Concerns Active Problems Noted Date Diagnosed Date HP GENERAL PROBLEM 11/13/2021 Assessment Noted Time PHQ-9 Depression Total Score: 10 024 9:49 AM CDT documented as of this encounter Care Teams Home Attendant Relationship Specialty Start Date End Date Onesimo Bruno MD PCP - General 08/11/06 Bhavna Mac PharmD 870 [place] [address] Pharmacist Pharmacist 07/11/18 Isaac Bro, RN Lead Plant Engineer Primary Care - CC 09/01/18 Onesimo Bruno MD 1390 [place] [address] Assigned PCP 07/30/20 Nataliia Gomez MD 1600 [facility], [address] [place] [address] Assigned Heart and Vascular Provider 08/29/20 10/08/22 Luly Grant MD 1655 [facility] [address] [place] [address] Assigned Allergy Provider 08/29/20 04/16/22 Rafita Ayers MD 909 [place] [address] Assigned Pulmonology Provider 10/12/20 06/06/23 Flo Henry MD 1875 [facility] [address] [place] [address] Assigned Behavioral Health Provider 09/21/20 Jana Vick, [facility] Community Health Worker Primary Care - CC 06/08/21 Tor Joseph DPM 2945 [facility] [address] [place] [address] Assigned Musculoskeletal Provider 07/05/21 03/19/22 Lorri Larsen MD [address] [place] [address] Otolaryngology 07/21/21 Lorri Larsen MD [address] [place] [address] Assigned Surgical Provider 10/10/21 04/28/23 Rafita Ayers MD [address] [place] [address] Critical Care 11/30/21 Kaelyn New, Shena 1825 [place] [address] Manager Line Audiology 12/09/21 Marino Hayes MD [address] [place] [address] Cardiovascular Disease 09/28/22 Marino Hayes MD 6 [place] [address] Assigned Heart and Vascular Provider 10/09/22 06/06/23 Nataliia Gomez MD [address] [place] [address], [address] [place] [address] Assigned Heart and Vascular Provider 06/07/23 documented as of this encounter
--- OUTSIDE RECORDS SUMMARY | 2023-11-14 18:38 | XMS_ITS | Encounter Summary ---
Author Organization [place] Address [address] [place] [address] Care Team Providers Care Canvas Cutter Hand Name Role Phone Onesimo Bruno MD Primary Care Provider [phone] Bhavna Mac PharmD Unavailable [phone] Isaac Bro RN Unavailable [phone] Onesimo Bruno MD Unavailable [phone] Rafita Ayers MD Unavailable [phone] Flo Henry MD Unavailable [phone] Jana Vick W Unavailable Unavailabl e Lorri Larsen MD Unavailable +[phone] Lorri Larsen MD Unavailable +[phone] Rafita Ayers MD Unavailable [phone] Kaelyn New Unavailable +[phone] Marino Hayes MD Unavailable + [phone] Marino Hayes MD Unavailable + [phone] Nataliia Gomez MD Unavailable Encounter Details Date Type Department Care Team (Late st Contact Info) Description 03/02/2023 [facility] [place] [address] [place] [address] Flo Henry MD [facility] [address] [address] Social History Tobacco Use Types Packs/Day Years [...] st Contact Info) Description 01/05/2024 1:00 PM DIE STAMPER Office Visit [facility] 1390 [place] [address] Onesimo Bruno MD [address]0 [place] [address] documented as of this encounter Goals Goal [...] continue to work with my Weight Watcher's athletic coach and start attending their Webinars. 4. I will report progress towards this goal at outreach telephone calls from the [facility] team Discussed 08/12/23 documented as of this encounter Visit Diagnoses Not on filedocumented in this encounter Additional Health Concerns Active Problems Noted Date Diagnosed Date HP GENERAL PROBLEM 11/13/2021 Assessment Noted Time PHQ-9 Depression Total Score: 7 12/09/19 23 11:14 AM CDT documented as of this encounter Care Teams Canvas Cutter Hand Relationship Specialty Start Date End Date Onesimo Bruno MD PCP - General 08/11/06 Bhavna Mac PharmD [address] [place] [address] Pharmacist Pharmacist 07/11/18 Isaac Bro, RN Lead Professional Bass Fisher Primary Care - CC 09/01/18 Onesimo Bruno MD 1390 [place] [address] Assigned PCP 07/30/20 Rafita Ayers MD [address] [place] [address] Assigned Pulmonology Provider 10/12/20 06/06/23 Flo Henry MD [facility] [address] [address] Assigned Behavioral Health Provider 09/21/20 Jana Vick, W Community Health Worker Primary Care - CC 06/08/21 Lorri Larsen MD [address] [place] [address] Otolaryngology 07/21/21 Lorri Larsen MD [address] [place] [address] Assigned Surgical Provider 10/10/21 04/28/23 Rafita Ayers MD [address] [place] [address] Critical Care 11/30/21 Kaelyn New AuD [facility]5 [place] [address] Bevel Face Stoner And Polisher Audiology 12/09/21 Marino Hayes MD [address] [place] [address] Cardiovascular Disease 09/28/22 Marino Hayes MD [address] [place] [address] Assigned Heart and Vascular Provider 10/09/22 06/06/23 Nataliia Gomez MD [address] [place] [address], [address] [place] [address] Assigned Heart and Vascular Provider 06/07/23 documented as of this encounter
--- OUTSIDE RECORDS SUMMARY | 2023-11-14 18:38 | XMS_ITS | Encounter Summary ---
Author Organization [place] Address [address] [place] [address] Care Team Providers Care Head Of Loss Prevention Name Role Phone Onesimo Bruno MD Primary Care Provider [phone] Bhavna Mac PharmD Unavailable [phone] Isaac Bro RN Unavailable [phone] Onesimo Bruno MD Unavailable [phone] Nataliia Gomez MD Unavailable Luly Grant MD Unavailable +[phone] Rafita Ayers MD Unavailable +[phone] Flo Henry MD Unavailable [phone] Jana Vick CHW Unavailable Unavailabl Tor Saldana DPM Unavailable +[phone] Lorri Larsen MD Unavailable +[phone] Lorri Larsen MD Unavailable +[phone] Rafita Ayers MD Unavailable +[phone] Kaelyn New Unavailable [phone] Marino Hayes MD Unavailable + [phone] Marino Hayes MD Unavailable + [phone] Nataliia Gomez MD Unavailable Encounter Details Date Type Department Care Team (Late st Contact Info) Description 01/20/2022 MyC Medical Advice [facility] [address] [place] [address] Joy Zuniga Social History Tobacco [...] Coronavirus/COVID-19? 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 HEMATOLOGY SPECIALIST documented as of this encounter Plan of Treatment Upcoming Encounters Date Type Department Care Team (Late st Contact Info) Description 01/05/2024 1:00 PM HEMATOLOGY SPECIALIST Office Visit [facility] 1390 [place] [address] [place] [address] [place] [address] documented as of this encounter Goals Goal [...] documented as of this encounter Care Teams Head Of Loss Prevention Relationship Specialty Start Date End Date Onesimo Bruno MD PCP - General 08/11/06 Bhavna Mac, GenesisD [address]70 [place] [address] Pharmacist Pharmacist 07/11/18 Isaac Bro, RN Lead Meat Seafood Associate Primary Care - CC 09/01/18 Onesimo Bruno MD 1390 [place] [address] Assigned PCP 07/30/20 Nataliia Gomez MD 1600 [facility], [address] [place], [place] [address] Assigned Heart and Vascular Provider 08/29/20 10/08/22 Luly Grant MD 1655 [facility] [address] [place] [address] Assigned Allergy Provider 08/29/20 04/16/22 Rafita Ayers MD 909 [place] [address] Assigned Pulmonology Provider 10/12/20 06/06/23 Flo Henry MD [facility] [address] [address] Assigned Behavioral Health Provider 09/21/20 Jana Vick W Community Health Worker Primary Care - CC 06/08/21 Tor Joseph DPM 2945 [facility] [address] [place] [address] Assigned Musculoskeletal Provider 07/05/21 03/19/22 Lorri Larsen MD [address] [place] [address] Otolaryngology 07/21/21 Lorri Larsen MD [address] [place] [address] Assigned Surgical Provider 10/10/21 04/28/23 Rafita Ayers MD [address] [place] [address] Critical Care 11/30/21 Kaelyn New AuD [address]25 [place] [address] Turpentine Farmer Audiology 12/09/21 Marino Hayes MD [address] [place] [address] Cardiovascular Disease 09/28/22 Marino Hayes MD [address] [place] [address] Assigned Heart and Vascular Provider 10/09/22 06/06/23 Nataliia Gomez MD 1600 [facility], [address] [place] [address] Assigned Heart and Vascular Provider 06/07/23 documented as of this encounter
--- OUTSIDE RECORDS SUMMARY | 2023-11-14 18:38 | XMS_ITS | Encounter Summary ---
Author Organization [facility] Address [address] [place] [address] Care Team Providers Care Property Claim Rep Name Role Phone Onesimo Bruno MD Primary Care Provider +[phone] Bhavna Mac PharmD Unavailable +[phone] Isaac Bro RN Unavailable +[phone] Onesimo Bruno MD Unavailable +[phone] Nataliia Gomez MD Unavailable Luly Grant MD Unavailable +[phone] Rafita Ayers MD Unavailable +[phone] Flo Henry MD Unavailable +[phone] Jana Vick CHW Unavailable Unavailabl Tor Saldana DPM Unavailable +[phone] Lorri Larsen MD Unavailable +[phone] Lorri Larsen MD Unavailable +[phone] Rafita Ayers MD Unavailable +[phone] Kaelyn New Unavailable +[phone] Marino Hayes MD Unavailable + [phone] Marino Hayes MD Unavailable + [phone] Nataliia Gomez MD Unavailable Encounter Details Date Type Department Care Team (Late st Contact Info) Description 12/01/2021 MyC Medical Advice [address] [address] Brigette Guerrero MA Social History Tobacco Use [...] Upcoming Encounters Date Type Department Care Team ([facility] Contact Info) Description 01/05/2024 1:00 PM DIAGNOSTIC ASSISTANT Office Visit [address] [address] Onesimo Bruno MD [address] [place] [address] documented as of this encounter Goals Goal [...] documented as of this encounter Care Teams Property Claim Rep Relationship Specialty Start Date End Date Onesimo Bruno MD PCP - General 08/11/06 Bhavna Mac PharmD 870 [place] [address] Pharmacist Pharmacist 07/11/18 Isaac Bro, RN Lead Strap Maker Primary Care - CC 09/01/18 Onesimo Bruno MD 1390 [place] [address] Assigned PCP 07/30/20 Nataliia Gomez MD [address] [facility], [address] [place] [address] Assigned Heart and Vascular Provider 08/29/20 10/08/22 Luly Grant MD 1655 [facility] [address] [place] [address] Assigned Allergy Provider 08/29/20 04/16/22 Rafita Ayers MD 909 [place] [address] Assigned Pulmonology Provider 10/12/20 06/06/23 Flo Henry MD [address] [address] Assigned Behavioral Health Provider 09/21/20 Jana Vick, W Community Health Worker Primary Care - CC 06/08/21 Tor Joseph DPM 2945 [facility] [address] [place] [address] Assigned Musculoskeletal Provider 07/05/21 03/19/22 Lorri Larsen MD [address] [place] [address] Otolaryngology 07/21/21 Lorri Larsen MD [address] [place] [address] Assigned Surgical Provider 10/10/21 04/28/23 Rafita Ayers MD [address] [place] [address] Critical Care 11/30/21 Kaelyn New, [place] [facility]5 [place] [address] Tetryl Nitrator Operator Audiology 12/09/21 Marino Hayes MD [address] [place] [address] Cardiovascular Disease 09/28/22 Marino Hayes MD [address] [place] [address] Assigned Heart and Vascular Provider 10/09/22 06/06/23 Nataliia Gomez MD [address] [facility], [address] [place] [address] Assigned Heart and Vascular Provider 06/07/23 documented as of this encounter
--- OUTSIDE RECORDS SUMMARY | 2023-11-14 18:38 | XMS_ITS | Encounter Summary ---
Author Organization [facility] Address [address] [place] [address] Care Team Providers Care Loan Expeditor Name Role Phone Onesimo Bruno MD Primary Care Provider +[phone] Bhavna Mac PharmD Unavailable +[phone] sIaac Bro RN Unavailable +[phone] Onesimo Bruno MD Unavailable +[phone] Nataliia Gomez MD Unavailable Luly Grant MD Unavailable +[phone] Rafita Ayers MD Unavailable +[phone] Flo Henry MD Unavailable +[phone] Jana Vick CHW Unavailable Unavailabl Tor Saldana DPM Unavailable +[phone] Lorri Larsen MD Unavailable +[phone] Lorri Larsen MD Unavailable +[phone] Rafita Ayers MD Unavailable +[phone] Kaelyn New Unavailable +[phone] Marino Hayes MD Unavailable + [phone] Marino Hayes MD Unavailable + [phone] Nataliia Gomez MD Unavailable Encounter Details Date Type Department Care Team (Late st Contact Info) Description 01/26/2022 MyC Medical Advice [address] [address] Mary James RN Social History [...] Coronavirus/COVID-19? 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 CLERK documented as of this encounter Plan of Treatment Upcoming Encounters Date Type Department Care Team (Late st Contact Info) Description 01/05/2024 1:[address] CLERK Office Visit [facility] [address] [place] [phone] [place] [address] [place] [address] documented as of this encounter Goals Goal [...] documented as of this encounter Care Teams Loan Expeditor Relationship Specialty Start Date End Date Onesimo Bruno MD PCP - General 08/11/06 Bhavna Mac, GenesisD 870 [place] [address] Pharmacist Pharmacist 07/11/18 Isaac Bro, RN Lead Locator Primary Care - CC 09/01/18 Onesimo Bruno MD 1390 [place] [address] Assigned PCP 07/30/20 Nataliia Gomez MD [address] [facility], [address] [place] [address] Assigned Heart and Vascular Provider 08/29/20 10/08/22 Luly Grant MD 1655 [facility] [address] [place] [address] Assigned Allergy Provider 08/29/20 04/16/22 Rafita Ayers MD 909 [place] [address] Assigned Pulmonology Provider 10/12/20 06/06/23 Flo Henry MD [facility] [address] Assigned Behavioral Health Provider 09/21/20 Jana Vick, W Community Health Worker Primary Care - CC 06/08/21 Tor Joseph DPM 2945 [facility] [address] [place] [address] Assigned Musculoskeletal Provider 07/05/21 03/19/22 Lorri Laresn MD [address] [place] [address] Otolaryngology 07/21/21 Lorri Larsen MD [address] [place] [address] Assigned Surgical Provider 10/10/21 04/28/23 Rafita Ayers MD [address] [place] [address] Critical Care 11/30/21 Kaelyn New AuD [facility]5 [place] [address] Marketing Underwriter Audiology 12/09/21 Marino Hayes MD [address] [place] [address] Cardiovascular Disease 09/28/22 Marino Hayes MD [address] [place] [address] Assigned Heart and Vascular Provider 10/09/22 06/06/23 Nataliia Gomez MD [address] [facility], [address] [place] [address] Assigned Heart and Vascular Provider 06/07/23 documented as of this encounter
--- OUTSIDE RECORDS SUMMARY | 2023-11-14 18:38 | XMS_ITS | Encounter Summary ---
Author Organization [place] Address [address] [place] [address] Care Team Providers Care Marine Diesel Mechanic Name Role Phone Onesimo Bruno MD Primary Care Provider +[phone] Bhavna Mac PharmD Unavailable +[phone] Isaac Bro RN Unavailable +[phone] Onesimo Bruno MD Unavailable [phone] Nataliia Gomez MD Unavailable Rafita Ayers MD Unavailable +[phone] Flo Henry MD Unavailable +[phone] Jana Vick W Unavailable Unavailabl e Lorri Larsen MD Unavailable +[phone] Lorri Larsen MD Unavailable +[phone] Rafita Ayers MD Unavailable +[phone] Kaelyn New Unavailable +[phone] Marino Hayes MD Unavailable + [phone] Marino Hayes MD Unavailable + [phone] Nataliia Gomez MD Unavailable Encounter Details Date Type Department Care Team (Late st Contact Info) Description 09/29/2022 [facility] [address] [address] [facility] Social History Tobacco Use Types Packs/Day Years [...] st Contact Info) Description 01/05/2024 1:00 PM SYSTEMS AUDITOR Office Visit [facility] [address] [place] [address] [place] [address] [place] [address] documented as of this encounter Goals Goal [...] 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 4. I will report progress towards this goal at outreach telephone calls from the [facility] team Discussed 6/28/24 documented as of this encounter Visit Diagnoses Not on filedocumented in this encounter Additional Health Concerns Active Problems Noted Date Diagnosed Date HP GENERAL PROBLEM 11/13/2021 Assessment Noted Time PHQ-9 Depression Total Score: 8 04/16/19 23 9:42 AM SYSTEMS AUDITOR documented as of this encounter Care Teams Marine Diesel Mechanic Relationship Specialty Start Date End Date Onesimo Bruno MD PCP - General 08/11/06 Bhavna Mac, PharmD 870 [place] [address] Pharmacist Pharmacist 07/11/18 Isaac Bro, RN Lead Sodium Methylate Operator Primary Care - CC 09/01/18 Onesimo Bruno MD 1390 [place] [address] Assigned PCP 07/30/20 Nataliia Gomez MD [address] [facility], [address] [place] [address] Assigned Heart and Vascular Provider 08/29/20 10/08/22 Rafita Ayers MD [address] [place] [address] Assigned Pulmonology Provider 10/12/20 06/06/23 Flo Henry MD [facility] [address] [address] Assigned Behavioral Health Provider 09/21/20 Jana Vick, W Community Health Worker Primary Care - CC 06/08/21 Lorri Larsen MD [address] [place] [address] Otolaryngology 07/21/21 Lorri Larsen MD 9 [place] [address] Assigned Surgical Provider 10/10/21 04/28/23 Rafita Ayers MD [address] [place] [address] Critical Care 11/30/21 Kaelyn New AuD [address] [place] [address] Manager Cardiology Audiology 12/09/21 Marino Hayes MD [address] [place] [address] Cardiovascular Disease 09/28/22 Marino Hayes MD [address] [place] [address] Assigned Heart and Vascular Provider 10/09/22 06/06/23 Nataliia Gomez MD [address] [place] [address], [address] [place] [address] Assigned Heart and Vascular Provider 06/07/23 documented as of this encounter
--- OUTSIDE RECORDS SUMMARY | 2023-11-14 18:38 | XMS_ITS | Encounter Summary ---
Author Organization [facility] Address [address] [place] [address] Care Team Providers Care Border Police Name Role Phone Onesimo Bruno MD Primary Care Provider +[phone] Bhavna Mac PharmD Unavailable +[phone] Isaac Bro RN Unavailable [phone] Onesimo Bruno MD Unavailable [phone] Nataliia Gomez MD Unavailable Luly Grant MD Unavailable +[phone] Rafita Ayers MD Unavailable +[phone] Flo Henry MD Unavailable +[phone] Jana Vick CHW Unavailable Unavailabl Tor Saldana DPM Unavailable +[phone] Lorri Larsen MD Unavailable +[phone] Lorri Larsen MD Unavailable +[phone] Rafita Ayers MD Unavailable +[phone] Kaelyn New Unavailable +[phone] Marino Hayes MD Unavailable + [phone] Marino Hayes MD Unavailable + [phone] Nataliia Gomez MD Unavailable Encounter Details Date Type Department Care Team (Late st Contact Info) Description 01/21/2022 MyC Medical Advice [facility] [place] [address] [facility] [address] [place] [phone] Isabell Colon Social History Tobacco Use Types [...] Coronavirus/COVID-19? 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 MEDICAL AIDE documented as of this encounter Plan of Treatment Upcoming Encounters Date Type Department Care Team (Late st Contact Info) Description 01/05/2024 1:00 PM MEDICAL AIDE Office Visit [facility] 1390 [place] [address] Onesimo Bruno MD 1390 [place] [address] documented as of this encounter Goals Goal [...] to work with my Weight Watcher's assistant golf coach and start attending their Webinars. [...] documented as of this encounter Care Teams Border Police Relationship Specialty Start Date End Date Onesimo Bruno MD PCP - General 08/11/06 Bhavna Mac PharmD 870 [place] [address] Pharmacist Pharmacist 07/11/18 Isaac Bro, RN Lead Study Abroad Advisor Primary Care - CC 09/01/18 Onesimo Bruno MD 1390 [place] [address] Assigned PCP 07/30/20 Nataliia Gomez MD [address] [facility], [address] [place] [address] Assigned Heart and Vascular Provider 08/29/20 10/08/22 Luly Grant MD 1655 [facility] [address] [place] [address] Assigned Allergy Provider 08/29/20 04/16/22 Rafita Ayers MD 909 [place] [address] Assigned Pulmonology Provider 10/12/20 06/06/23 Flo Henry MD [address] [address] Assigned Behavioral Health Provider 09/21/20 Jana Vick, W Community Health Worker Primary Care - CC 06/08/21 Tor Joseph DPM 2945 [facility] [address] [place] [address] Assigned Musculoskeletal Provider 07/05/21 03/19/22 Lorri Larsen MD [address] [place] [address] Otolaryngology 07/21/21 Lorri Larsen MD [address] [place] [address] Assigned Surgical Provider 10/10/21 04/28/23 Rafita Ayers MD [address] [place] [address] Critical Care 11/30/21 Kaelyn New, [place]a [facility]5 [place] [address] Cook Chili Audiology 12/09/21 Marino Hayes MD [address] [place] [address] Cardiovascular Disease 09/28/22 Marino Hayes MD [address] [place] [address] Assigned Heart and Vascular Provider 10/09/22 06/06/23 Nataliia Gomez MD [address] [facility], [address] [place] [address] Assigned Heart and Vascular Provider 06/07/23 documented as of this encounter
--- OUTSIDE RECORDS SUMMARY | 2023-11-14 18:38 | XMS_ITS | Encounter Summary ---
Author Organization [facility] Address [address] [place] [address] Care Team Providers Care Shirt Marker Name Role Phone Onesimo Bruno MD Primary Care Provider +[phone] Bhavna Mac PharmD Unavailable +[phone] Isaac Bro RN Unavailable [phone] Onesimo Bruno MD Unavailable [phone] Rafita Ayers MD Unavailable +[phone] Flo Henry MD Unavailable +[phone] Jana Vick [facility] Unavailable Unavailabl e Lorri Larsen MD Unavailable +[phone] Lorri Larsen MD Unavailable +[phone] Rafita Ayers MD Unavailable +[phone] Kaelyn New Unavailable +[phone] Marino Hayes MD Unavailable + [phone] Marino Hayes MD Unavailable + [phone] Nataliia Gomez MD Unavailable Encounter Details Date Type Department Care Team (Late st Contact Info) Description 02/28/2023 Magan [facility] 1390 [place] [phone] Onesimo Bruno MD 1390 [place] [address] Social History Tobacco Use Types Packs/Day Years [...] st Contact Info) Description 01/05/2024 1:00 PM EAR MOLD LABORATORY TECHNICIAN Office Visit [facility] 1390 [place] [address] Onesimo Bruno MD 1390 [place] [address] documented as of this encounter Goals Goal [...] 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 4. I will report progress towards this goal at outreach telephone calls from the [facility] team Discussed 08/12/23 documented as of this encounter Visit Diagnoses Not on filedocumented in this encounter Additional Health Concerns Active Problems Noted Date Diagnosed Date HP GENERAL PROBLEM 11/13/2021 Assessment Noted Time PHQ-9 Depression Total Score: 7 12/09/19 23 11:14 AM CDT documented as of this encounter Care Teams Shirt Marker Relationship Specialty Start Date End Date Onesimo Bruno MD PCP - General 08/11/06 Bhavna Mac, GenesisD 870 [place] [address] Pharmacist Pharmacist 07/11/18 Isaac Bro, RN Lead Cross Tie Maker Primary Care - CC 09/01/18 [place] [address] [place] [address] Assigned PCP 07/30/20 Rafita Ayers MD [address] [place] [address] Assigned Pulmonology Provider 10/12/20 06/06/23 Flo Henry MD [address] [address] Assigned Behavioral Health Provider 09/21/20 Jana Vick, [facility] Community Health Worker Primary Care - CC 06/08/21 Lorri Larsen MD [address] [place] [address] Otolaryngology 07/21/21 Lorri Larsen MD [address] [place] [address] Assigned Surgical Provider 10/10/21 04/28/23 Rafita Ayers MD [address] [place] [address] Critical Care 11/30/21 Kaelyn New AuD [address] [place] [address] News Correspondent Audiology 12/09/21 Marino Hayes MD [address] [place] [address] Cardiovascular Disease 09/28/22 Marino Hayes MD [address] [place] [address] Assigned Heart and Vascular Provider 10/09/22 06/06/23 Nataliia Gomez MD [address] [place] [address], [address] [place] [address] Assigned Heart and Vascular Provider 06/07/23 documented as of this encounter
--- OUTSIDE RECORDS SUMMARY | 2023-11-14 18:38 | XMS_ITS | Encounter Summary ---
Author Organization [facility] Address [address] [place] [address] Care Team Providers Care Inpatient Nursing Aide Name Role Phone Onesimo Bruno MD Primary Care Provider +[phone] Bhavna Mac PharmD Unavailable +[phone] Isaac Bro RN Unavailable [phone] Onesimo Bruno MD Unavailable +[phone] Nataliia Gomez MD Unavailable Luly Grant MD Unavailable +[phone] Rafita Ayers MD Unavailable +[phone] Flo Henry MD Unavailable +[phone] Susan Robert CHW Unavailable Unavailable Jana Vick CHW Unavailable [facility] Tor Saldana DPM Unavailable +[phone] Lorri Larsen MD Unavailable +[phone] Lorri Larsen MD Unavailable +[phone] Rafita Ayers MD Unavailable +[phone] Kaelyn New Unavailable +[phone] Marino Hayes MD Unavailable + [phone] Marino Hayes MD Unavailable + [phone] Nataliia Gomez MD Unavailable Reason for Visit * Reason Comments Medication Refill Encounter Details Date Type Department Care Team (Late st Contact Info) Description 05/26/2021 Refill [facility] Care Coordination [address] [place] [address] Onesimo Bruno MD [address] [place] [address] Medication Refill Social History Tobacco Use Types [...] Contact Info) Description 01/05/2024 1:00 PM LINE SERVICER Office Visit [facility] 1390 [place] [address] Onesimo Bruno MD 1390 [place] [address] documented as of this encounter Visit Diagnoses Diagnosis Metabolic syndrome Dysmetabolic Syndrome X Prediabetes Other abnormal glucose documented in this encounter Additional Health Concerns Assessment Noted Time PHQ-9 Depression Total Score: 5 03/03/19 22 5:15 PM LINE SERVICER documented as of this encounter Care Teams Inpatient Nursing Aide Relationship Specialty Start Date End Date Onesimo Bruno MD PCP - General 08/11/06 Bhavna Mac PharmD 870 [place] [address] Pharmacist Pharmacist 07/11/18 Isaac Bro, RN Lead Absorption And Adsorption Engineer Primary Care - CC 09/01/18 Onesimo Bruno MD 1390 [place] [address] Assigned PCP 07/30/20 Nataliia Gomez MD 1600 [facility], [address] [place] [address] Assigned Heart and Vascular Provider 08/29/20 10/08/22 [place] [address] [place] [address] [address] [place] [address] Assigned Allergy Provider 08/29/20 04/16/22 Rafita Ayers MD [address] [place] [address] Assigned Pulmonology Provider 10/12/20 06/06/23 Flo Henry MD [facility] [address] [address] Assigned Behavioral Health Provider 09/21/20 Susan Robert CHW Community Health Worker Primary Care - CC 04/23/2106/15/21 Jana Vick CHW Community Health Worker Primary Care - CC 06/08/21 Tor Joseph DPM 2945 [facility] [address] [place] [address] Assigned Musculoskeletal Provider 07/05/21 03/19/22 Lorri Larsen MD [address] [place] [address] MD Otolaryngology 07/21/21 Lorri Larsen MD 9 [place] [address] Assigned Surgical Provider 10/10/21 04/28/23 Rafita Ayers MD [address] [place] [address] Critical Care 11/30/21 Kaelyn New AuD [facility]5 [place] [address] Trademark Paralegal Audiology 12/09/21 Marino Hayes MD [address] [place] [address] Cardiovascular Disease 09/28/22 Marino Hayes MD 6 [place] [address] Assigned Heart and Vascular Provider 10/09/22 06/06/23 Nataliia Gomez MD 1600 [facility], [address] [place] [address] Assigned Heart and Vascular Provider 06/07/23 documented as of this encounter
--- OUTSIDE RECORDS SUMMARY | 2023-11-14 18:38 | XMS_ITS | Encounter Summary ---
Author Organization [place] Address [address] [place] [address] Care Team Providers Care Compliance Advisor Name Role Phone Onesimo Bruno MD Primary Care Provider +[phone] Bhavna Mac PharmD Unavailable +[phone] Isaac Bro RN Unavailable +[phone] Onesimo Bruno MD Unavailable +[phone] Nataliia Gomez MD Unavailable Luly Grant MD Unavailable +[phone] Rafita Ayers MD Unavailable +[phone] Flo Henry MD Unavailable +[phone] Jana Vick CHW Unavailable Unavailabl Tor Saldana DPM Unavailable +[phone] Lorri Larsen MD Unavailable +[phone] Lorri Larsen MD Unavailable +[phone] Rafita Ayers MD Unavailable +[phone] Kaelyn New Unavailable +[phone] Marino Hayes MD Unavailable + [phone] Marino Hayes MD Unavailable + [phone] Nataliia Gomez MD Unavailable Encounter Details Date Type Department Care Team (Late st Contact Info) Description 12/01/2021 MyC Medical Advice [facility] [address] [place] [phone] Joy Zuniga Social History Tobacco Use Types [...] st Contact Info) Description 01/05/2024 1:00 PM RESIDENTIAL AIDE Office Visit [facility] 1390 [place] [address] Onesimo Bruno MD 1390 [place] [address] documented as of this encounter Goals Goal [...] continue 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 4. [...] documented as of this encounter Care Teams Compliance Advisor Relationship Specialty Start Date End Date Onesimo Bruno MD PCP - General 08/11/06 Bhavna Mac, [place] 870 [place] [address] Pharmacist Pharmacist 07/11/18 Isaac Bro, RN Lead Roustabout Head Primary Care - CC 09/01/18 Onesimo Bruno MD 1390 [place] [address] Assigned PCP 07/30/20 Nataliia Gomez MD [address] [facility], [address] [place], [place] [address] Assigned Heart and Vascular Provider 08/29/20 10/08/22 Luly Grant MD 1655 [facility] [address] [place] [address] Assigned Allergy Provider 08/29/20 04/16/22 Rafita Ayers MD 909 [place] [address] Assigned Pulmonology Provider 10/12/20 06/06/23 Flo Henry MD [facility] [address] [place] [address] Assigned Behavioral Health Provider 09/21/20 Jana Vick, W Community Health Worker Primary Care - CC 06/08/21 Tor Joseph DPM 2945 [facility] [address] [place] [address] Assigned Musculoskeletal Provider 07/05/21 03/19/22 Lorri Larsen MD [address] [place] [address] Otolaryngology 07/21/21 Lorri Larsen MD [address] [place] [address] Assigned Surgical Provider 10/10/21 04/28/23 Rafita Ayers MD [address] [place] [address] Critical Care 11/30/21 Kaelyn New, [place] [address]25 [place] [address] Deputy Commonwealth'S Attorney Audiology 12/09/21 Marino Hayes MD [address] [place] [address] Cardiovascular Disease 09/28/22 Marino Hayes MD [address] [place] [address] Assigned Heart and Vascular Provider 10/09/22 06/06/23 Nataliia Gomez MD [address] [facility], [address] [place] [address] Assigned Heart and Vascular Provider 06/07/23 documented as of this encounter
--- OUTSIDE RECORDS SUMMARY | 2023-11-14 18:38 | XMS_ITS | Encounter Summary ---
Author Organization [facility] Address [address] [place] [address] Care Team Providers Care Educational Speech Language Clinician Name Role Phone Onesimo Bruno MD Primary Care Provider [phone] Bhavna Mac PharmD Unavailable +[phone] Isaac Bro RN Unavailable +[phone] Onesimo Bruno MD Unavailable +[phone] Nataliia Gomez MD Unavailable Luly Grant MD Unavailable +[phone] Rafita Ayers MD Unavailable +[phone] Flo Henry MD Unavailable +[phone] Jana Vick CHW Unavailable Unavailabl Tor Saldana DPM Unavailable +[phone] Lorri Larsen MD Unavailable +[phone] Lorri Larsen MD Unavailable +[phone] Rafita Ayers MD Unavailable +[phone] Kaelyn New Unavailable +[phone] Marino Hayes MD Unavailable + [phone] Marino Hayes MD Unavailable + [phone] Nataliia Gomez MD Unavailable Encounter Details Date Type Department Care Team (Late st Contact Info) Description 03/05/2022 MyC Medical Advice [facility] [address] [place] [address] Gloria Vane Social History Tobacco Use Types Packs/Day Years [...] Coronavirus/COVID-19? No / Unsure 03/02/2022 12:59 AM LONG TERM ACUTE CARE REGISTERED NURSE documented as of this encounter Plan of Treatment Upcoming Encounters Date Type Department Care Team (Late st Contact Info) Description 01/05/2024 1:00 PM LONG TERM ACUTE CARE REGISTERED NURSE Office Visit [facility] [address] [place] [phone] [place] [address] [place] [address] documented as of this encounter Goals Goal [...] as of this encounter Care Teams Educational Speech Language Clinician Relationship Specialty Start Date End Date Onesimo Bruno MD PCP - General 08/11/06 Bhavna Mac, Elio 870 [place] [address] Pharmacist Pharmacist 07/11/18 Isaac Bro, RN Lead Ferry Terminal Supervisor Primary Care - CC 09/01/18 Onesimo Bruno MD 1390 [place] [address] Assigned PCP 07/30/20 Nataliia Gomez MD 1600 [facility], [address] [place], [place] [address] Assigned Heart and Vascular Provider 08/29/20 10/08/22 Luly Grant MD 1655 [facility] [address] [place] [address] Assigned Allergy Provider 08/29/20 04/16/22 Rafita Ayers MD 909 [place] [address] Assigned Pulmonology Provider 10/12/20 06/06/23 Flo Henry MD [facility] [address] [place] [address] Assigned Behavioral Health Provider 09/21/20 Jana Vick, W Community Health Worker Primary Care - CC 06/08/21 Tor Joseph DPM 2945 [facility] [address] [place] [address] Assigned Musculoskeletal Provider 07/05/21 03/19/22 Lorri Larsen MD [address] [place] [address] Otolaryngology 07/21/21 Lorri Larsen MD [address] [place] [address] Assigned Surgical Provider 10/10/21 04/28/23 Rafita Ayers MD [address] [place] [place] [address] Critical Care 11/30/21 Kaelyn New, [place] 1825 [place] [address] Practical Nursing Teacher Audiology 12/09/21 Marino Hayes MD [address] [place] [address] Cardiovascular Disease 09/28/22 Marino Hayes MD [address] [place] [address] Assigned Heart and Vascular Provider 10/09/22 06/06/23 Nataliia Gomez MD [address] [facility], [address] [place] [address] Assigned Heart and Vascular Provider 06/07/23 documented as of this encounter
--- OUTSIDE RECORDS SUMMARY | 2023-11-14 18:38 | XMS_ITS | Encounter Summary ---
Author Organization [place] Address [address] [place] [address] Care Team Providers Care Section 8 Property Manager Name Role Phone Onesimo Bruno MD Primary Care Provider [phone] Bhavna Mac PharmD Unavailable +[phone] Isaac Bro RN Unavailable +[phone] Onesimo Bruno MD Unavailable +[phone] Nataliia Gomez MD Unavailable Luly Grant MD Unavailable +[phone] Rafita Ayers MD Unavailable +[phone] Flo Henry MD Unavailable +[phone] Jana Vick CHW Unavailable Unavailabl Tor Saldana DPM Unavailable +[phone] Lorri Larsen MD Unavailable +[phone] Lorri Larsen MD Unavailable +[phone] Rafita Ayers MD Unavailable +[phone] Kaelyn New Unavailable +[phone] Marino Hayes MD Unavailable + [phone] Marino Hayes MD Unavailable + [phone] Nataliia Gomez MD Unavailable Encounter Details Date Type Department Care Team (Late st Contact Info) Description 09/10/2021 MyC Medical Advice [facility] Care Coordination [facility] [place] [address] Jana Vick, W Social History [...] st Contact Info) Description 01/05/2024 1:00 PM WINDOWS SYSTEMS ADMINISTRATOR Office Visit [facility] [address] [place] [phone] Onesimo Bruno MD 1390 [place] [address] documented as of this encounter Visit Diagnoses Not on filedocumented in this encounter Additional Health Concerns Assessment Noted Time PHQ-9 Depression Total Score: 10 024 9:49 AM CDT documented as of this encounter Care Teams Section 8 Property Manager Relationship Specialty Start Date End Date Onesimo Bruno MD PCP - General 08/11/06 Bhavna Mac, Elio 0 [place] [address] Pharmacist Pharmacist 07/11/18 Isaac Bro RN Lead Box Printer Primary Care - CC 09/01/18 Onesimo Bruno MD [address]0 [place] [address] Assigned PCP 07/30/20 Nataliia Gomez MD [address] [facility], [address] [place] [address] Assigned Heart and Vascular Provider 08/29/20 10/08/22 Luly Grant MD 1655 [facility] [address] [place] [address] Assigned Allergy Provider 08/29/20 04/16/22 Rafita Ayers MD [address] [place] [address] Assigned Pulmonology Provider 10/12/20 06/06/23 Flo Henry MD [address] [phone] Assigned Behavioral Health Provider 09/21/20 Jana Vick, [facility] Community Health Worker Primary Care - CC 06/08/21 Tor Joseph DPM 2945 [facility] [address] [place] [address] Assigned Musculoskeletal Provider 07/05/21 03/19/22 Lorri Larsen MD [address] [place] [address] 149625 Otolaryngology 07/21/21 Lorri Larsen MD [address] [place] [address] Assigned Surgical Provider 10/10/21 04/28/23 Rafita Ayers MD 909 [place] [address] Critical Care 11/30/21 Kaelyn New AuD [facility]5 [place] [address] Legal Instructor Audiology 12/09/21 Marino Hayes MD [address] [place] [address] Cardiovascular Disease 09/28/22 Marino Hayes MD [address] [place] [address] Assigned Heart and Vascular Provider 10/09/22 06/06/23 Nataliia Gomez MD [address] [facility], [address] [place] [address] Assigned Heart and Vascular Provider 06/07/23 documented as of this encounter
--- OUTSIDE RECORDS SUMMARY | 2023-11-14 18:38 | XMS_ITS | Encounter Summary ---
Author Organization [place] Address [address] [place] [address] Care Team Providers Care Laborer Concrete Plant Name Role Phone Onesimo Bruno MD Primary Care Provider [phone] Bhavna Mac PharmD Unavailable +[phone] Isaac Bro RN Unavailable +[phone] Onesimo Bruno MD Unavailable +[phone] Nataliia Gomez MD Unavailable Luly Grant MD Unavailable +[phone] Rafita Ayers MD Unavailable +[phone] Flo Henry MD Unavailable +[phone] Jana Vick CHW Unavailable Unavailabl Tor Saldana DPM Unavailable +[phone] Lorri Larsen MD Unavailable +[phone] Lorri Larsen MD Unavailable +[phone] Rafita Ayers MD Unavailable +[phone] Kaelyn New Unavailable +[phone] Marino Hayes MD Unavailable + [phone] Marino Hayes MD Unavailable + [phone] Nataliia Gomez MD Unavailable Encounter Details Date Type Department Care Team (Late st Contact Info) Description 03/05/2022 MyC Medical Advice [facility] [address] [place] [address] Chandler Day MD [address] [place] [address] Social History Tobacco Use Types Packs/Day Years [...] Coronavirus/COVID-19? No / Unsure 03/02/2022 12:59 AM SOUS CHEF documented as of this encounter Miscellaneous Notes * Telephone Encounter - Rishabh Guerra RN - 03/08/2022 8:59 AM CST Last OV 05/06/20 Virtual return MW 04/15/22 CHEF documented in this encounter Plan of Treatment Upcoming Encounters Date Type Department Care Team (Late Contact Info) Description 01/05/2024 1:00 PM SOUS CHEF Office Visit [facility] 1390 [place] [address] Onesimo Bruno MD [facility] [place] [address] documented as of this encounter Goals Goal Patient Goal Type Associated Problems Recent Progress Patient-Stated? Author I would like to get into more healthy eating program to assist me with weight loss. Care Plan HP GENERAL PROBLEM 40%( 4 1:55 PM CDT) No Myhre, Krishna, RN Note: Barriers: Elevated BMI. Strengths: Strong [...] CAMPUS ([facility])[3] team Discussed 08/12/23 documented as of this encounter Visit Diagnoses Not on filedocumented in this encounter Additional Health Concerns Active Problems Noted Date Diagnosed Date HP GENERAL PROBLEM 11/13/2021 Assessment Noted Time PHQ-9 Depression Total Score: 10 024 9:49 AM CDT documented as of this encounter Care Teams Laborer Concrete Plant Relationship Specialty Start Date End Date Onesimo Bruno MD PCP - General 08/11/06 Bhavna Mac, GenesisD 870 [place] [address] Pharmacist Pharmacist 07/11/18 Isaac Bro, RN Lead Cable Hooker Primary Care - CC 09/01/18 Onesimo Bruno MD 1390 [place] [address] Assigned PCP 07/30/20 Nataliia Gomez MD 1600 [facility], [address] [place], [place] [address] Assigned Heart and Vascular Provider 08/29/20 10/08/22 Luly Grant MD 1655 [facility] [address] [place], [place] [address] Assigned Allergy Provider 08/29/20 04/16/22 Rafita Ayers MD [address] [place] [address] Assigned Pulmonology Provider 10/12/20 06/06/23 Flo Henry MD [address] [address] Assigned Behavioral Health Provider 09/21/20 Jana Vick, W Community Health Worker Primary Care - CC 06/08/21 Tor Joseph DPM [facility]5 [facility] [address], [place] [address] Assigned Musculoskeletal Provider 07/05/21 03/19/22 Lorri Larsen MD [address] [place] [address] Otolaryngology 07/21/21 Lorri Larsen MD [address] [place] [address] Assigned Surgical Provider 10/10/21 04/28/23 Rafita Ayers MD [address] [place] [address] Critical Care 11/30/21 Kaelyn New, [place] 1825 [place] [address] Traveling Storekeeper Audiology 12/09/21 Marino Hayes MD 516 [place] [address] Cardiovascular Disease 09/28/22 Marino Hayes MD [address] [place] [address] Assigned Heart and Vascular Provider 10/09/22 06/06/23 Nataliia Gomez MD [address] [place] [address], [address] [place] [address] Assigned Heart and Vascular Provider 06/07/23 documented as of this encounter
--- OUTSIDE RECORDS SUMMARY | 2023-11-14 18:38 | XMS_ITS | Encounter Summary ---
Author Organization [place] Address [address] [place] [address] Care Team Providers Care Career Technical Supervisor Name Role Phone Onesimo Bruno MD Primary Care Provider +[phone] Bhavna Mac PharmD Unavailable +[phone] Isaac Bro RN Unavailable +[phone] Ilda Tapia CHW Unavailable +[phone] Onesimo Bruno MD Unavailable +[phone] Nataliia Gomez MD Unavailable Luly Grant MD Unavailable +[phone] Rafita Ayers MD Unavailable +[phone] Flo eHnry MD Unavailable +[phone] Susan Robert CHW Unavailable Unavailable Jana Vick CHW Unavailable UnavailTor Brown DPM Unavailable +[phone] Lorri Larsen MD Unavailable +[phone] Lorri Larsen MD Unavailable +[phone] Rafita Ayers MD Unavailable +[phone] Kaelyn New Unavailable [phone] Marino Hayes MD Unavailable + [phone] Marino Hayes MD Unavailable + [phone] Nataliia Gomez MD Unavailable Encounter Details Date Type Department Care Team (Late st Contact Info) Description 03/04/2021 MyC Medical Advice [address] [phone] Onesimo Bruno MD [address] [place] [address] Social History Tobacco Use Types Packs/Day Years [...] COVID-19? No / Unsure 03/03/2021 3:44 PM CAFE HELPER documented as of this encounter Plan of Treatment Upcoming Encounters Date Type Department Care Team (Late Contact Info) Description 01/05/2024 1:00 PM CAFE HELPER Office Visit [address] [phone] Onesimo Bruno MD [address] [place] [address] documented as of this encounter Visit Diagnoses Not on filedocumented in this encounter Additional Health Concerns Assessment Noted Time PHQ-9 Depression Total Score: 5 03/03/19 22 5:15 PM CAFE HELPER documented as of this encounter Care Teams Career Technical Supervisor Relationship Specialty Start Date End Date Onesimo Bruno MD PCP - General 08/11/06 Bhavna Mac, GenesisD 870 [place] [address] Pharmacist Pharmacist 07/11/18 Isaac Bro, RN Lead Lead Manufacturing Engineer Primary Care - CC 09/01/18 Ilda Tapia CHW Community Health Worker Primary Care - CC 09/01/1804/22 Onesimo Bruno MD 1390 [place] [address] Assigned PCP 07/30/20 Nataliia Gomez MD [address] [place] [address], [address] [place] [address] Assigned Heart and Vascular Provider 08/29/20 10/08/22 [place] [address] [place] [address] [address] [place], [place] [address] Assigned Allergy Provider 08/29/20 04/16/22 Rafita Ayers MD 909 [place] [address] Assigned Pulmonology Provider 10/12/20 06/06/23 Flo Henry MD [address] [phone] Assigned Behavioral Health Provider 09/21/20 Susan Robert, ELISA Community Health Worker Primary Care - CC 04/23/2106/15/21 Jana Vick CHW Community Health Worker Primary Care - CC 06/08/21 Tor Joseph DPM 2945 [facility] [address] [place] [address] Assigned Musculoskeletal Provider 07/05/21 03/19/22 Lorri Larsen MD [address] [place] [address] Otolaryngology 07/21/21 Lorri Larsen MD [address] [place] [address] Assigned Surgical Provider 10/10/21 04/28/23 Rafita Ayers MD [address] [place] [address] Critical Care 11/30/21 Kaelyn New AuD [address] [place] [address] Sap Pp Consultant Audiology 12/09/21 Marino Hayes MD [address] [place] [address] Cardiovascular Disease 09/28/22 Marino Hayes MD [address] [place] [address] Assigned Heart and Vascular Provider 10/09/22 06/06/23 Nataliia Gomez MD [address] [place] [address], [address] [place] [address] Assigned Heart and Vascular Provider 06/07/23 documented as of this encounter
--- OUTSIDE RECORDS SUMMARY | 2023-11-14 18:38 | XMS_ITS | Encounter Summary ---
Author Organization [facility] Address [address] [place] [address] Care Team Providers Care Finisher Merchant Products Name Role Phone Onesimo Bruno MD Primary Care Provider [phone] Bhavna Mac PharmD Unavailable +[phone] Isaac Bro RN Unavailable [phone] Onesimo Bruno MD Unavailable +[phone] Nataliia Gomez MD Unavailable Luly Grant MD Unavailable +[phone] Rafita Ayers MD Unavailable +[phone] Flo Henry MD Unavailable +[phone] Jana Vick CHW Unavailable Unavailabl Tor Saldana DPM Unavailable +[phone] Lorri Larsen MD Unavailable +[phone] Lorri Larsen MD Unavailable +[phone] Rafita Ayers MD Unavailable +[phone] Kaelyn New Unavailable +[phone] Marino Hayes MD Unavailable + [phone] Marino Hayes MD Unavailable + [phone] Nataliia Gomez MD Unavailable Encounter Details Date Type Department Care Team (Late st Contact Info) Description 12/08/2021 MyC Medical Advice [facility] [address] [place] [address] Gloria Vane Social History Tobacco [...] st Contact Info) Description 01/05/2024 1:00 PM PETROLEUM REFINING EQUIPMENT OPERATOR Office Visit [facility] 1390 [place] [address] Onesimo Bruno MD 1390 [place] [address] documented as of this encounter Goals Goal [...] documented as of this encounter Care Teams Finisher Merchant Products Relationship Specialty Start Date End Date Onesimo Bruno MD PCP - General 08/11/06 Bhavna Mac, Elio 870 [place] [address] Pharmacist Pharmacist 07/11/18 Isaac Bro, RN Lead Materials Director Primary Care - CC 09/01/18 Onesimo Bruno MD 1390 [place] [address] Assigned PCP 07/30/20 Nataliia Gomez MD 1600 [facility], [address] [place], [place] [address] Assigned Heart and Vascular Provider 08/29/20 10/08/22 Luly Grant MD 1655 [facility] [address] [place] [address] Assigned Allergy Provider 08/29/20 04/16/22 Rafita Ayers MD 909 [place] [address] Assigned Pulmonology Provider 10/12/20 06/06/23 Flo Henry MD [facility] [address] [place] [address] Assigned Behavioral Health Provider 09/21/20 Jana Vick, W Community Health Worker Primary Care - CC 06/08/21 Tor Joseph DPM 2945 [facility] [address] [place] [address] Assigned Musculoskeletal Provider 07/05/21 03/19/22 Lorri Larsen MD [address] [place] [address] Otolaryngology 07/21/21 Lorri Larsen MD [address] [place] [address] Assigned Surgical Provider 10/10/21 04/28/23 Rafita Ayers MD [address] [place] [address] Critical Care 11/30/21 Kaelyn New, Shena 1825 [place] [address] Superintendent Distribution Audiology 12/09/21 Marino Hayes MD [address] [place] [address] Cardiovascular Disease 09/28/22 Marino Hayes MD [address] [place] [address] Assigned Heart and Vascular Provider 10/09/22 06/06/23 Nataliia Gomez MD [address] [facility], [address] [place] [address] Assigned Heart and Vascular Provider 06/07/23 documented as of this encounter
--- OUTSIDE RECORDS SUMMARY | 2023-11-14 18:38 | XMS_ITS | Encounter Summary ---
Author Organization [place] Address [address] [place] [address] Care Team Providers Care Compensation And Hris Analyst Name Role Phone Onesimo Bruno MD Primary Care Provider +[phone] Bhavna Mac PharmD Unavailable +[phone] Isaac Bro RN Unavailable [phone] Onesimo Bruno MD Unavailable [phone] Nataliia Gomez MD Unavailable Rafita Ayers MD Unavailable +[phone] Flo Henry MD Unavailable +[phone] Jana Vick W Unavailable Unavailabl Lorri Luo MD Unavailable +[phone] Lorri Larsen MD Unavailable +[phone] Rafita Ayers MD Unavailable +[phone] Kaelyn New Unavailable +[phone] Marino Hayes MD Unavailable + [phone] Marino Hayes MD Unavailable + [phone] Nataliia Gomez MD Unavailable Encounter Details Date Type Department Care Team (Late st Contact Info) Description 08/09/2022 [facility] [address] [phone] Clarence DebbieGLORIA calzada Social History Tobacco Use Types Packs/Day Years [...] st Contact Info) Description 01/05/2024 1:00 PM COOK CHIEF Office Visit [facility] [address] [place] [phone] [place] [address] [place] [address] documented as of this encounter Goals Goal [...] continue to work with my Weight Watcher's employment coach and start attending their Webinars. 4. [...] Total Score: 8 04/16/19 23 9:42 AM COOK CHIEF documented as of this encounter Care Teams Compensation And Hris Analyst Relationship Specialty Start Date End Date Onesimo Bruno MD PCP - General 08/11/06 Bhavna Mac, Elio 870 [place] [address] Pharmacist Pharmacist 07/11/18 Isaac Bro, RN Lead Anti Tank Missileman Primary Care - CC 09/01/18 Onesimo Bruno MD 1390 [place] [address] Assigned PCP 07/30/20 Nataliia Gomez MD 1600 [facility], [address] [place] [address] Assigned Heart and Vascular Provider 08/29/20 10/08/22 Rafita Ayers MD [address] [place] [address] 726905 Assigned Pulmonology Provider 10/12/20 06/06/23 Flo Henry MD [facility] [phone] Assigned Behavioral Health Provider 09/21/20 Jana Vick, W Community Health Worker Primary Care - CC 06/08/21 Lorri Larsen MD [address] [place] [address] 329965 Otolaryngology 07/21/21 Lorri Larsen MD 9 [place] [address] Assigned Surgical Provider 10/10/21 04/28/23 Rafita Ayers MD [address] [place] [address] Critical Care 11/30/21 Kaelyn New AuD [facility]5 [place] [address] Cv/Cvn Cv Tsc System Operator Audiology 12/09/21 Marino Hayes MD [address] [place] [address] Cardiovascular Disease 09/28/22 Marino Hayes MD [address] [place] [address] Assigned Heart and Vascular Provider 10/09/22 06/06/23 Nataliia Gomez MD [address] [facility], [address] [place] [address] Assigned Heart and Vascular Provider 06/07/23 documented as of this encounter
--- OUTSIDE RECORDS SUMMARY | 2023-11-14 18:38 | XMS_ITS | Encounter Summary ---
Author Organization [place] Address [address] [place] [address] Care Team Providers Care Garden Consultant Name Role Phone Onesimo Bruno MD Primary Care Provider [phone] Bhavna Mac PharmD Unavailable +[phone] Isaac Bro RN Unavailable [phone] Onesimo Bruno MD Unavailable [phone] Nataliia Gomez MD Unavailable Rafita Ayers MD Unavailable +[phone] Flo Henry MD Unavailable +[phone] Jana Vick W Unavailable Unavailabl e Lorri Larsen MD Unavailable +[phone] Lorri Larsen MD Unavailable +[phone] Rafita Ayers MD Unavailable +[phone] Kaelyn New Unavailable +[phone] Marino Hayes MD Unavailable + [phone] Marino Hayes MD Unavailable + [phone] Nataliia Gomez MD Unavailable Encounter Details Date Type Department Care Team (Late st Contact Info) Description 05/20/2022 [facility] [address] [place] [address] Chandler Day MD [address] [place] [address] Social History Tobacco Use Types Packs/Day Years [...] st Contact Info) Description 01/05/2024 1:00 PM STATION WORKER Office Visit [facility] [address] [place] [phone] Onesimo Bruno MD 1390 [place] [address] documented as of this encounter Goals Goal [...] the [facility] team Discussed 08/12/23 documented as of this encounter Visit Diagnoses Not on filedocumented in this encounter Additional Health Concerns Active Problems Noted Date Diagnosed Date HP GENERAL PROBLEM 11/13/2021 Assessment Noted Time PHQ-9 Depression Total Score: 8 04/16/19 23 9:42 AM STATION WORKER documented as of this encounter Care Teams Garden Consultant Relationship Specialty Start Date End Date Onesimo Bruno MD PCP - General 08/11/06 Bhavna Mac, Elio 870 [place] [address] Pharmacist Pharmacist 07/11/18 Isaac Bro, RN Lead Skip Tender Primary Care - CC 09/01/18 Onesimo Bruno MD 1390 [place] [address] Assigned PCP 07/30/20 Nataliia Gomez MD [address] [place] [address], [address] [place] [address] Assigned Heart and Vascular Provider 08/29/20 10/08/22 Rafita Ayers MD [address] [place] [address] Assigned Pulmonology Provider 10/12/20 06/06/23 Flo Henry MD [address] [place] [address] Assigned Behavioral Health Provider 09/21/20 Jana Vick, CHW Community Health Worker Primary Care - CC 06/08/21 Lorri Larsen MD [address] [place] [address] Otolaryngology 07/21/21 Lorri Larsen MD 9 [place] [address] Assigned Surgical Provider 10/10/21 04/28/23 Rafita Ayers MD 9 [place] [address] Critical Care 11/30/21 Kaelyn New AuD [address] [place] [address] Equipment Washer Audiology 12/09/21 Marino Hayes MD [address] [place] [address] Cardiovascular Disease 09/28/22 Marino Hayes MD 6 [place] [address] Assigned Heart and Vascular Provider 10/09/22 06/06/23 Nataliia Gomez MD 1600 [facility], [address] [place] [address] Assigned Heart and Vascular Provider 06/07/23 documented as of this encounter
--- OUTSIDE RECORDS SUMMARY | 2023-11-14 18:39 | XMS_ITS | Encounter Summary ---
Author Organization [facility] Address [address] [place] [address] Care Team Providers Care Slasher Machine Operator Name Role Phone Onesimo Bruno MD Primary Care Provider [phone] Bhavna Mac PharmD Unavailable +[phone] Isaac Bro RN Unavailable +[phone] Ilda Tapia CHW Unavailable +[phone] Onesimo Bruno MD Unavailable +[phone] Manuel Calderon MD, Jon Unavailable +[phone] Nataliia Gomez MD Unavailable Luly Grant MD Unavailable +[phone] Rafita Ayers MD Unavailable +[phone] Flo Henry MD Unavailable +[phone] Susan Robert CHW Unavailable Unavailable Jana Vick CHW Unavailable UnavailTor Brown DPM Unavailable +[phone] Lorri Larsen MD Unavailable +[phone] Lorri Larsen MD Unavailable +[phone] Rafita Ayers MD Unavailable +[phone] Kaelyn New Unavailable +[phone] Marino Hayes MD Unavailable + [phone] Marino Hayes MD Unavailable +[phone] Nataliia Gomez MD Unavailable Encounter Details Date [...] st Contact Info) Description 01/05/2024 1:00 PM RE EXAMINER Office Visit [facility] [address] [place] [address] Onesimo Bruno MD 1390 [place] [address] documented as of this encounter Visit Diagnoses Not on filedocumented in this encounter Additional Health Concerns Assessment Noted Time PHQ-9 Depression Total Score: 3 03/03/19 22 9:49 AM RE EXAMINER documented as of this encounter Care Teams Slasher Machine Operator Relationship Specialty Start Date End Date Onesimo Bruno MD PCP - General 08/11/06 Bhavna Mac, GenesisD [address] [place] [address] Pharmacist Pharmacist 07/11/18 Isaac rBo, RN Lead Timber Mill Worker Primary Care - CC 09/01/18 Ilda Tapia CHW Community Health Worker Primary Care - CC 09/01/1804/22 [place] [address] [place] [address] Assigned PCP 07/30/20 Florentino Jackson MD [facility] [address] [facility] 602 [place] [address] Assigned Surgical Provider 08/29/20 09/27/20 Nataliia Gomez MD [address] [facility], [address] [place] [address] Assigned Heart and Vascular Provider 08/29/20 10/08/22 [place] [address] [place] [address] [address] [place] [address] Assigned Allergy Provider 08/29/20 04/16/22 Rafita Ayers MD [address] [place] [address] Assigned Pulmonology Provider 10/12/20 06/06/23 Flo Henry MD 1875 [facility] 250 [place], [place] [id number] Assigned Behavioral Health Provider 09/21/20 Susan Robert CHW Community Health Worker Primary Care - CC 04/23/2106/15/21 Jana Vick CHW Community Health Worker Primary Care - CC 06/08/21 Tor Joseph DPM 2945 [facility] [address] [place] [address] Assigned Musculoskeletal Provider 07/05/21 03/19/22 Lorri Larsen MD [address] [place] [address] 654495 Otolaryngology 07/21/21 Lorri Larsen MD 9 [place] [address] Assigned Surgical Provider 10/10/21 04/28/23 Rafita Ayers MD [address] [place] [address] Critical Care 11/30/21 Kaelyn New AuD [address] [place] [address] Medical Appliance Maker Audiology 12/09/21 Marino Hayes MD [address] [place] [address] Cardiovascular Disease 09/28/22 Marino Hayes MD [address] [place] [address] Assigned Heart and Vascular Provider 10/09/22 06/06/23 Nataliia Gomez MD [address] [place] [address], [address] [place] [address] Assigned Heart and Vascular Provider 06/07/23 documented as of this encounter
--- OUTSIDE RECORDS SUMMARY | 2023-11-14 18:39 | XMS_ITS | Encounter Summary ---
Author Organization [facility] Address [address] [place] [address] Care Team Providers Care Tableau Report Developer Name Role Phone Onesimo Bruno MD Primary Care Provider [phone] Bhavna Mac PharmD Unavailable +[phone] Isaac Bro RN Unavailable [phone] Ilda Tapia CHW Unavailable +[phone] Onesimo Bruno MD Unavailable [phone] Manuel Calderon MD, Jon Unavailable +[phone] Nataliia Gomez MD Unavailable Luly Grant MD Unavailable +[phone] Rafita Ayers MD Unavailable +[phone] Flo Herny MD Unavailable +[phone] Susan Robert CHW Unavailable Unavailable Jana Vick CHW Unavailable UnavailTor Brown DPM Unavailable +[phone] Lorri Larsen MD Unavailable +[phone] Lorri Larsen MD Unavailable +[phone] Rafita Ayers MD Unavailable +[phone] Kaelyn New Unavailable +[phone] Marino Hayes MD Unavailable + [phone] Marino Hayes MD Unavailable [phone] Nataliia Gomez MD Unavailable Encounter Details Date [...] st Contact Info) Description 01/05/2024 1:00 PM FELTMAKER AND WEIGHER Office Visit [facility] 1390 [place] [address] Onesimo Bruno MD [address]0 [place] [address] documented as of this encounter Visit Diagnoses Not on filedocumented in this encounter Additional Health Concerns Assessment Noted Time PHQ-9 Depression Total Score: 8 06/21/19 19 2:31 PM CDT documented as of this encounter Care Teams Tableau Report Developer Relationship Specialty Start Date End Date Onesimo Bruno MD PCP - General 08/11/06 Bhavna Mac, GenesisD [address] [place] [address] Pharmacist Pharmacist 07/11/18 Isaac Bro, RN Lead Mechanical Shop Laborer Primary Care - CC 09/01/18 Ilda Tapia CHW Community Health Worker Primary Care - CC 09/01/1804/22 [place] [address] [place] [address] Assigned PCP 07/30/20 Florentino Jackson MD [facility] [address] [facility] 602 [place] [address] Assigned Surgical Provider 08/29/20 09/27/20 Nataliia Gomez MD [address] [facility], [address] [place] [address] Assigned Heart and Vascular Provider 08/29/20 10/08/22 [place] [address] [place] [address] [address] [place] [address] Assigned Allergy Provider 08/29/20 04/16/22 Rafita Ayers MD [address] [place] [address] 113095 Assigned Pulmonology Provider 10/12/20 06/06/23 Flo Henry MD 1875 [facility] 250 [place], [place] [phone] Assigned Behavioral Health Provider 09/21/20 Susan Robert CHW Community Health Worker Primary Care - CC 04/23/2106/15/21 Jana Vick CHW Community Health Worker Primary Care - CC 06/08/21 Tor Joseph DPM 2945 [facility] [address] [place] [address] Assigned Musculoskeletal Provider 07/05/21 03/19/22 Lorri Larsen MD [address] [place] [address] 948365 Otolaryngology 07/21/21 Lorri Larsen MD 9 [place] [address] Assigned Surgical Provider 10/10/21 04/28/23 Rafita Ayers MD [address] [place] [address] Critical Care 11/30/21 Kaelyn New AuD [address] [place] [address] Crosscutter Rolled Glass Audiology 12/09/21 Marino Hayes MD [address] [place] [address] Cardiovascular Disease 09/28/22 Marino Hayes MD [address] [place] [address] Assigned Heart and Vascular Provider 10/09/22 06/06/23 Nataliia Gomez MD [address] [place] [address], [address] [place] [address] Assigned Heart and Vascular Provider 06/07/23 documented as of this encounter
--- OUTSIDE RECORDS SUMMARY | 2023-11-14 18:39 | XMS_ITS | Encounter Summary ---
Author Organization [facility] Address [address] [place] [address] Care Team Providers Care Configuration Management Consultant Name Role Phone Onesimo Bruno MD Primary Care Provider [phone] Bhavna Mac PharmD Unavailable +[phone] Isaac Bro RN Unavailable +[phone] Ilda Tapia CHW Unavailable +[phone] Onesimo Bruno MD Unavailable +[phone] Nataliia Gomez MD Unavailable Luly Grant MD Unavailable +[phone] Rafita Ayers MD Unavailable +[phone] Flo Henry MD Unavailable +[phone] Susan Robert CHW Unavailable Unavailable Jana Vick CHW Unavailable UnavailTor Brown DPM Unavailable +[phone] Lorri Larsen MD Unavailable +[phone] Lorri Larsen MD Unavailable +[phone] Rafita Ayers MD Unavailable +[phone] Kaelyn New Unavailable +[phone] Marino Hayes MD Unavailable + [phone] Marino Hayes MD Unavailable + [phone] Nataliia Gomez MD Unavailable Encounter Details Date Type Department Care Team (Late st Contact Info) Description 10/10/2020 MyC Medical Advice [facility] 2945 [facility] 200 [place] [phone] Luly Grant MD 1655 [facility] 111 [place], [place] [phone] Social History Tobacco Use Types Packs/Day Years [...] (Late Contact Info) Description 01/05/2024 1:00 PM BENDING MACHINE OPERATOR Office Visit [facility] [address] [place] [phone] Onesimo Bruno MD 1390 [place] [address] documented as of this encounter Visit Diagnoses Not on filedocumented in this encounter Additional Health Concerns Assessment Noted Time PHQ-9 Depression Total Score: 14 022 10:49 AM BENDING MACHINE OPERATOR documented as of this encounter Care Teams Configuration Management Consultant Relationship Specialty Start Date End Date Onesimo Bruno MD PCP - General 08/11/06 Bhavna Mac, GenesisD 870 [place] [address] Pharmacist Pharmacist 07/11/18 Isaac Bro, RN Lead Customer Complaint Service Supervisor Primary Care - CC 09/01/18 Ilda Tapia CHW Community Health Worker Primary Care - CC 09/01/1804/22 Onesimo Bruno MD 1390 [place] [address] Assigned PCP 07/30/20 Nataliia Gomez MD [address] [place] [address], [address] [place] [address] Assigned Heart and Vascular Provider 08/29/20 10/08/22 [place] [address] [place] [address] [address] [place], [place] [phone] Assigned Allergy Provider 08/29/20 04/16/22 Rafita Ayers MD 909 [place] [address] Assigned Pulmonology Provider 10/12/20 06/06/23 Flo Henry MD [address] [phone] Assigned Behavioral Health Provider 09/21/20 Susan Robert, ELISA Community Health Worker Primary Care - CC 04/23/2106/15/21 Jana Vick CHW Community Health Worker Primary Care - CC 06/08/21 Tor Joseph DPM 2945 [facility] [address] [place] [address] Assigned Musculoskeletal Provider 07/05/21 03/19/22 Lorri Larsen MD [address] [place] [address] Otolaryngology 07/21/21 Lorri Larsen MD [address] [place] [address] Assigned Surgical Provider 10/10/21 04/28/23 Rafita Ayers MD [address] [place] [address] Critical Care 11/30/21 Kaelyn New AuD [address] [place] [address] E D Tech Audiology 12/09/21 Marino Hayes MD [address] [place] [address] Cardiovascular Disease 09/28/22 Marino Hayes MD [address] [place] [address] Assigned Heart and Vascular Provider 10/09/22 06/06/23 Nataliia Gomez MD [address] [place] [address], [address] [place] [address] Assigned Heart and Vascular Provider 06/07/23 documented as of this encounter
--- OUTSIDE RECORDS SUMMARY | 2023-11-14 18:39 | XMS_ITS | Encounter Summary ---
Author Organization [facility] Address [address] [place] [address] Care Team Providers Care Associate Professor Plant Pathology Name Role Phone Onesimo Bruno MD Primary Care Provider [phone] Bhavna Mac PharmD Unavailable +[phone] Isaac Bro RN Unavailable [phone] Ilda Tapia CHW Unavailable +[phone] Onesimo Bruno MD Unavailable [phone] Manuel Calderon MD, Jon Unavailable +[phone] Nataliia Gomez MD Unavailable Luly Grant MD Unavailable +[phone] Rafita Ayers MD Unavailable +[phone] Flo Henry MD Unavailable +[phone] Susan Robert CHW Unavailable Unavailable Jana Vick CHW Unavailable UnavailTor Brown DPM Unavailable +[phone] Lorri Larsen MD Unavailable +[phone] Lorri Larsen MD Unavailable +[phone] Rafita Ayers MD Unavailable +[phone] Kaelyn New Unavailable +[phone] Marino Hayes MD Unavailable + [phone] Marino Hayes MD Unavailable +[phone] Nataliia Gomez MD Unavailable Encounter Details Date [...] st Contact Info) Description 01/05/2024 1:00 PM SKEIN BANDER Office Visit [facility] 1390 [place] [address] Onesimo Bruno MD 1390 [place] [address] documented as of this encounter Visit Diagnoses Not on filedocumented in this encounter Additional Health Concerns Assessment Noted Time PHQ-9 Depression Total Score: 8 06/21/19 19 2:31 PM CDT documented as of this encounter Care Teams Associate Professor Plant Pathology Relationship Specialty Start Date End Date Onesimo Bruno MD PCP - General 08/11/06 Bhavna Mac, GenesisD [address] [place] [address] Pharmacist Pharmacist 07/11/18 Isaac Bro, RN Lead Barbecue Cook Primary Care - CC 09/01/18 Ilda Tapia CHW Community Health Worker Primary Care - CC 09/01/1804/22 [place] [address] [place] [address] Assigned PCP 07/30/20 Florentino Jackson MD [facility] [address] [facility] 602 [place] [address] Assigned Surgical Provider 08/29/20 09/27/20 Nataliia Gomez MD 1600 [facility], [address] [place] [address] Assigned Heart and Vascular Provider 08/29/20 10/08/22 [place] [address] [place] [address] [address] [place] [address] Assigned Allergy Provider 08/29/20 04/16/22 Rafita Ayers MD [address] [place] [address] 634145 Assigned Pulmonology Provider 10/12/20 06/06/23 Flo Henry MD 1875 [facility] 250 [place], [place] [phone] Assigned Behavioral Health Provider 09/21/20 Susan Robert CHW Community Health Worker Primary Care - CC 04/23/2106/15/21 Jana Vick CHW Community Health Worker Primary Care - CC 06/08/21 Tor Joseph DPM 2945 [facility] [address] [place] [address] Assigned Musculoskeletal Provider 07/05/21 03/19/22 Lorri Larsen MD [address] [place] [address] 700865 Otolaryngology 07/21/21 Lorri Larsen MD 9 [place] [address] Assigned Surgical Provider 10/10/21 04/28/23 Rafita Ayers MD [address] [place] [address] Critical Care 11/30/21 Kaelyn New AuD [address] [place] [address] Heel Builder Audiology 12/09/21 Marino Hayes MD [address] [place] [address] Cardiovascular Disease 09/28/22 Marino Hayes MD [address] [place] [address] Assigned Heart and Vascular Provider 10/09/22 06/06/23 Nataliia Gomez MD [address] [place] [address], [address] [place] [address] Assigned Heart and Vascular Provider 06/07/23 documented as of this encounter
--- OUTSIDE RECORDS SUMMARY | 2023-11-14 18:39 | XMS_ITS | Encounter Summary ---
Author Organization [facility] Address [address] [place] [address] Care Team Providers Care Wildlife Removal Specialist Name Role Phone Onesimo Bruno MD Primary Care Provider [phone] Bhavna Mac PharmD Unavailable +[phone] Isaac Bro RN Unavailable [phone] Ilda Tapia CHW Unavailable +[phone] Onesimo Bruno MD Unavailable [phone] Manuel Calderon MD, Jon Unavailable +[phone] Nataliia Gomez MD Unavailable Luly Grant MD Unavailable +[phone] Rafita Ayers MD Unavailable +[phone] Flo Henry MD Unavailable +[phone] Susan Robert CHW Unavailable Unavailable Jana Vick CHW Unavailable UnavailTor Bronw DPM Unavailable +[phone] Lorri Larsen MD Unavailable +[phone] Lorri Larsen MD Unavailable +[phone] Rafita Ayers MD Unavailable +[phone] aKelyn New Unavailable +[phone] Marino Hayes MD Unavailable + [phone] Marino Hayes MD Unavailable [phone] Nataliia Gomez MD Unavailable Encounter Details Date [...] st Contact Info) Description 01/05/2024 1:00 PM WRITING MANAGER Office Visit [facility] [address] [place] [address] Onesimo Bruno MD 1390 [place] [address] documented as of this encounter Visit Diagnoses Not on filedocumented in this encounter Additional Health Concerns Assessment Noted Time PHQ-9 Depression Total Score: 8 06/21/19 19 2:31 PM CDT documented as of this encounter Care Teams Wildlife Removal Specialist Relationship Specialty Start Date End Date Onesimo Bruno MD PCP - General 08/11/06 Bhavna Mac, GenesisD [address] [place] [address] Pharmacist Pharmacist 07/11/18 Isaac Bro, RN Lead Dado Operator Primary Care - CC 09/01/18 Ilda Tapia CHW Community Health Worker Primary Care - CC 09/01/1804/22 [place] [address] [place] [address] Assigned PCP 07/30/20 Florentino Jackson MD [facility] [address] [place] [address] [facility] 602 [place] [address] Assigned Surgical Provider 08/29/20 09/27/20 Nataliia Gomez MD [address] [facility], [address] [place] [address] Assigned Heart and Vascular Provider 08/29/20 10/08/22 [place] [address] [place] [address] [address] [place] [address] Assigned Allergy Provider 08/29/20 04/16/22 Rafita Ayers MD [address] [place] [address] 849625 Assigned Pulmonology Provider 10/12/20 06/06/23 Flo Henry MD 1875 [facility] 250 [place], [place] [phone] Assigned Behavioral Health Provider 09/21/20 Susan Robert CHW Community Health Worker Primary Care - CC 04/23/2106/15/21 Jana Vick CHW Community Health Worker Primary Care - CC 06/08/21 Tor Joseph DPM 2945 [facility] [address] [place] [address] Assigned Musculoskeletal Provider 07/05/21 03/19/22 Lorri Larsen MD [address] [place] [address] 475185 Otolaryngology 07/21/21 Lorri Larsen MD 9 [place] [address] Assigned Surgical Provider 10/10/21 04/28/23 Rafita Ayers MD [address] [place] [address] Critical Care 11/30/21 Kaelyn New AuD [address] [place] [address] Foster Parent Audiology 12/09/21 Marino Hayes MD [address] [place] [address] Cardiovascular Disease 09/28/22 Marino Hayes MD [address] [place] [address] Assigned Heart and Vascular Provider 10/09/22 06/06/23 Nataliia Gomez MD [address] [place] [address], [address] [place] [address] Assigned Heart and Vascular Provider 06/07/23 documented as of this encounter
--- OUTSIDE RECORDS SUMMARY | 2023-11-14 18:39 | XMS_ITS | Encounter Summary ---
Author Organization [facility] Address [address] [place] [address] Care Team Providers Care Health Social Work Professor Name Role Phone Onesimo Bruno MD Primary Care Provider [phone] Bhavna Mac PharmD Unavailable +[phone] Isaac Bro RN Unavailable [phone] Ilda Tapia CHW Unavailable +[phone] Onesimo Bruno MD Unavailable [phone] Manuel Calderon MD, Jon Unavailable +[phone] Nataliia Gomez MD Unavailable Luly Grant MD Unavailable +[phone] Rafita Ayers MD Unavailable +[phone] Flo Henry MD Unavailable +[phone] Susan Robert CHW Unavailable Unavailable Jana Vick CHW Unavailable UnavailTor Brown DPM Unavailable +[phone] Lorri Larsen MD Unavailable +[phone] Lorri Larsen MD Unavailable +[phone] Rafita Ayers MD Unavailable +[phone] Kaelyn New Unavailable +[phone] Marino Hayes MD Unavailable + [phone] Marino Hayes MD Unavailable +[phone] Nataliia Gomez MD Unavailable Reason for Visit * Reason Comments Other Inpatient Follow Up; [facility] 08/11;08/13; Atypical Pneumonia x 3 weeks Encounter Details Date Type Department Care Team (Late st Contact Info) Description 08/19/2020 Office Visit - [facility] [address] [place] [phone] Onesimo Bruno MD [address] [place] [address] Atypical pneumonia; NAVAS (dyspnea on exertion); Wheezing; [...] 2:42 PM Encounter Date: 08/19/2020 Status: Signed Chief Operator: Onesimo Bruno MD (Physician) Office Visit - Follow Up Roger Luong Dr. 69 y.o. male Date of Visit: 08/19/2020 Chief Complaint Patient presents with ? Inpatient Follow Up [facility] 08/11;08/13; Atypical Pneumonia x 3 weeks Assessment [...] he was in the emergency room at [facility] on several occasions with cough and shortness of breath. He was told he had an atypical pneumonia and sent out on prednisone and Z-Rober. He was also given prednisone by his bread oven operator Dr. Grant here recently. He continues to [...] MOUTH DAILY 90 tablet 2 ? nebulizers [facility] Please dispense one machine and associated necessary [...] st Contact Info) Description 01/05/2024 1:00 PM CONSUMER SALES REPRESENTATIVE Office Visit [facility] [address] [place] [phone] Onesimo Bruno MD [address] [place] [address] documented as of this encounter Procedures Procedure [...] - 11.0 thou/uL 08/19/2020 3:07 PM CDT [facility] RBC Count 4.45 4.40 - 6.20 mill/uL 08/19/2020 3:07 PM CDT [facility] Hemoglobin 13.8(L) 14.0 - 18.0 g/dL 08/19/2020 3:07 PM CDT [facility] Hematocrit 42.4 40.0 - 54.0 % 08/19/2020 3:07 PM CDT [facility] MCV 95 80 - 100 fL 08/19/2020 3:07 PM CDT [facility] MCH 31.0 27.0 - 34.0 pg 08/19/2020 3:07 PM CDT [facility] MCHC 32.5 32.0 - 36.0 g/dL 08/19/2020 3:07 PM CDT [facility] RDW 14.0 11.0 - 14.5 % 08/19/2020 3:07 PM CDT [facility] Platelet Count 156 140 - 440 thou/uL 08/19/2020 3:07 PM CDT [facility] Mean Platelet Volume 9.4 7.0 - 10.0 fL 08/19/2020 3:07 PM CDT [facility] % Neutrophils 66 50 - 70 % 08/19/2020 3:07 PM CDT [facility] % Lymphocytes 26 20 - 40 % 08/19/2020 3:07 PM CDT [facility] % Monocytes 7 2 - 10 % 08/19/2020 3:07 PM CDT [facility] % Eosinophils 0 0 - 6 % 08/19/2020 3:07 PM CDT [facility] % Basophils 0 0 - 2 % 08/19/2020 3:07 PM CDT [facility] % Immature Granulocytes 0 <=0 % 08/19/2020 3:07 PM CDT [facility] Absolute Neutrophils 5.4 2.0 - 7.7 thou/uL 08/19/2020 3:07 PM CDT [facility] Absolute Lymphocytes 2.2 0.8 - 4.4 thou/uL 08/19/2020 3:07 PM CDT [facility] Absolute Monocytes 0.6 0.0 - 0.9 thou/uL 08/19/2020 3:07 PM CDT [facility] Eosinophils Absolute 0.0 0.0 - 0.4 thou/uL 08/19/2020 3:07 PM CDT [facility] Absolute Basophils 0.0 0.0 - 0.2 thou/uL 08/19/2020 3:07 PM CDT [facility] Absolute Immature Granulocytes 0.0 <=0.0 thou/uL 08/19/2020 3:07 PM CDT [facility] Blood specimen (specimen) Venipuncture / Unknown 08/19/2020 2:58 PM CDT 08/19/2020 2:58 PM CDT Onesimo Bruno MD LAB - BLOOD ORDERABL ES Performing Organization Address [facility] Co de Phone Number [facility] [address] [address], [facility] [address] [place] [address] * (ABNORMAL) Valproic acid (08/19/2020 2:58 PM CDT) Valproic acid 16.0(L) 50.0 - 150.0 ug/mL 08/19/2020 6:21 PM CDT [facility] Comment: Recommended therapeutic trough conc range when used for manic episodes associated with bipolar disorder: 50-125 ug/ml. Blood specimen (specimen) Venipuncture / Unknown 08/19/2020 2:58 PM CDT 08/19/2020 5:30 PM CDT Onesimo Bruno MD LAB - BLOOD ORDERABL ES Performing Organization Address City/[facility]/ZIP Co de Phone Number [facility] [address] [address], [facility] [phone] [facility] [address] [place] [address] * (ABNORMAL) Hepatic function panel (08/19/2020 2:58 PM CDT) [facility] Bilirubin Total 0.4 0.0 - 1.0 mg/dL 08/19/2020 6:09 PM CDT [facility] Bilirubin Direct 0.1 <=0.5 mg/dL 08/19/2020 6:09 PM CDT [facility] Protein Total 5.9(L) 6.0 - 8.0 g/dL 08/19/2020 6:09 PM CDT [facility] Albumin 3.2(L) 3.5 - 5.0 g/dL 08/19/2020 6:09 PM CDT [facility] Alkaline Phosphatase 50 45 - 120 U/L 08/19/2020 6:09 PM CDT [facility] AST 19 0 - 40 U/L 08/19/2020 6:09 PM CDT [facility] ALT 15 0 - 45 U/L 08/19/2020 6:09 PM CDT [facility] Blood specimen (specimen) Venipuncture / Unknown 08/19/2020 2:58 PM CDT 08/19/2020 5:30 PM CDT Onesimo Burno MD LAB - BLOOD ORDERABL ES [facility] [address] [place] [address], [facility] [phone] [facility] [address] [place] [address] * EKG 12-lead, tracing only (08/19/2020) Systolic Blood Pressure 08/20/2020 1:31 PM CDT [facility] Diastolic Blood Pressure 08/20/2020 1:31 PM CDT [facility] Ventricular Rate 97 BPM 08/21/19 1:31 PM CDT [facility] Atrial Rate 97 BPM 08/20/2020 1:31 PM CDT [facility] IA Interval 154 ms 08/20/2020 1:31 PM CDT [facility] QRS Duration 86 ms 08/20/2020 1:31 PM CDT [facility] QT 336 ms 08/20/2020 1:31 PM CDT [facility] QTc 426 ms 08/20/2020 1:31 PM CDT [facility] CON[facility] P [place] 22 degrees 08/20/2020 1:31 PM CDT [facility] R AXIS 54 degrees 08/20/2020 1:31 PM CDT [facility] CON[facility] T [place] 52 degrees 08/20/2020 1:31 PM CDT [facility] Interpretation ECG Sinus rhythm Normal ECG When compared with ECG of 28-JAN-2019 18:10, No significant change was found Confirmed by FAINA ??, MATTIE LOC:JN ([id number]) on 08/20/2020 1:31:56 PM 08/20/2020 1:31 PM [...] Depression Total Score: 14 022 10:49 AM CONSUMER SALES REPRESENTATIVE documented as of this encounter Care Teams Health Social Work Professor Relationship Specialty Start Date End Date Onesimo Bruno MD PCP - General 08/11/06 Bhavna Mac, PharmD [address] [place] [address] Pharmacist Pharmacist 07/11/18 Isaac Bro, RN Lead Infant Childcare Provider Primary Care - CC 09/01/18 Ilda Tapia CHW Community Health Worker Primary Care - CC 09/01/1804/22 Onesimo Bruno MD [address] [place] [address] Assigned PCP 07/30/20 Florentino Jackson MD [facility] [address] [place] [address] 602 [place] [address] Assigned Surgical Provider 08/29/20 09/27/20 Nataliia Gomez MD [address] [facility], [address] [place] [address] Assigned Heart and Vascular Provider 08/29/20 10/08/22 Luly rGant MD [address] [facility] [address] [place] [address] Assigned Allergy Provider 08/29/20 04/16/22 Rafita Ayers MD [address] [place] [address] Assigned Pulmonology Provider 10/12/20 06/06/23 Flo Henry MD [address]75 [facility] [address] [place] [address] Assigned Behavioral Health Provider 09/21/20 Susan Robert CHW Community Health Worker Primary Care - CC 04/23/2106/15/21 Jana Vick, [facility] Community Health Worker Primary Care - CC 06/08/21 Tor Joseph DPM [address] [facility] [address] [place] [address] Assigned Musculoskeletal Provider 07/05/21 03/19/22 Lorri Larsen MD [address] [place] [address] Otolaryngology 07/21/21 Lorri Larsen MD [address] [place] [address] Assigned Surgical Provider 10/10/21 04/28/23 Rafita Ayers MD [address] [place] [address] Critical Care 11/30/21 Kaelyn New, [place] [address] [place] [address] Turret Lathe Machinist Audiology 12/09/21 Marino Hayes MD [address] [place] [address] Cardiovascular Disease 09/28/22 Marino Hayes MD [address] [place] [address] Assigned Heart and Vascular Provider 10/09/22 06/06/23 Nataliia Gomez MD [address] [facility], [address] [place] [address] Assigned Heart and Vascular Provider 06/07/23 documented as of this encounter
--- OUTSIDE RECORDS SUMMARY | 2023-11-14 18:39 | XMS_ITS | Encounter Summary ---
Author Organization [facility] Address [address] [place] [address] Care Team Providers Care Clinical Practice Consultant Name Role Phone Onesimo Bruno MD Primary Care Provider [phone] Bhavna Mac PharmD Unavailable +[phone] Isaac Bro RN Unavailable [phone] Ilda Tapia CHW Unavailable +[phone] Onesimo Bruno MD Unavailable [phone] Manuel Calderon MD, Jon Unavailable +[phone] Nataliia Gomez MD Unavailable Luly Grant MD Unavailable +[phone] Rafita Ayers MD Unavailable +[phone] Flo Henry MD Unavailable +[phone] Susan Robert CHW Unavailable Unavailable Jana Vick CHW Unavailable UnavailTor Brown DPM Unavailable +[phone] Lorri Larsen MD Unavailable +[phone] Lorri Larsen MD Unavailable +[phone] Rafita Ayers MD Unavailable +[phone] Kaelyn New Unavailable +[phone] Marino Hayes MD Unavailable + [phone] Marino Hayes MD Unavailable [phone] Nataliia Gomez MD Unavailable Encounter Details Date [...] st Contact Info) Description 01/05/2024 1:00 PM FIRE LOOKOUT Office Visit [facility] [address] [place] [address] Onesimo Bruno MD [address] [place] [address] documented as of this encounter Visit Diagnoses Not on filedocumented in this encounter Additional Health Concerns Assessment Noted Time PHQ-9 Depression Total Score: 7 03/03/19 22 10:04 AM FIRE LOOKOUT documented as of this encounter Care Teams Clinical Practice Consultant Relationship Specialty Start Date End Date Onesimo Bruno MD PCP - General 08/11/06 Bhavna Mac, GenesisD [address] [place] [address] Pharmacist Pharmacist 07/11/18 Isaac Bro, RN Lead Hot Saw Helper Primary Care - CC 09/01/18 Ilda Tapia CHW Community Health Worker Primary Care - CC 09/01/1804/22 [place] [address] [place] [address] Assigned PCP 07/30/20 Florentino Jackson MD [facility] [address] [facility] 602 [place] [address] Assigned Surgical Provider 08/29/20 09/27/20 Nataliia Gomez MD [address] [facility], [address] [place] [address] Assigned Heart and Vascular Provider 08/29/20 10/08/22 [place] [address] [place] [address] [address] [place] [address] Assigned Allergy Provider 08/29/20 04/16/22 Rafita Ayers MD [address] [place] [address] Assigned Pulmonology Provider 10/12/20 06/06/23 Flo Henry MD 1875 [facility] 250 [place], [place] [address] Assigned Behavioral Health Provider 09/21/20 Susan Robert CHW Community Health Worker Primary Care - CC 04/23/2106/15/21 Jana Vick CHW Community Health Worker Primary Care - CC 06/08/21 Tor Joseph DPM [address] [facility] [address] [place], [place] [id number] Assigned Musculoskeletal Provider 07/05/21 03/19/22 Lorri Larsen MD [address] [place] [address] Otolaryngology 07/21/21 Lorri Larsen MD 9 [place] [address] Assigned Surgical Provider 10/10/21 04/28/23 Rafita Ayres MD [address] [place] [address] Critical Care 11/30/21 Kaelyn New AuD [address] [place] [address] Community Support Worker Audiology 12/09/21 Marino Hayes MD [address] [place] [address] Cardiovascular Disease 09/28/22 Marino Hayes MD [address] [place] [address] Assigned Heart and Vascular Provider 10/09/22 06/06/23 Nataliia Gomez MD [address] [place] [address], [address] [place] [address] Assigned Heart and Vascular Provider 06/07/23 documented as of this encounter
--- OUTSIDE RECORDS SUMMARY | 2023-11-14 18:39 | XMS_ITS | Encounter Summary ---
Author Organization [facility] Address [address] [place] [address] Care Team Providers Care Roll Edge Stitcher Hand Name Role Phone Onesimo Bruno MD Primary Care Provider [phone] Bhavna Mac PharmD Unavailable +[phone] Isaac Bro RN Unavailable [phone] Ilda Tapia CHW Unavailable +[phone] Onesimo Bruno MD Unavailable [phone] Manuel Calderon MD, Jon Unavailable +[phone] Nataliia Gomez MD Unavailable Luly Grant MD Unavailable +[phone] Rafita Ayers MD Unavailable +[phone] Flo Henry MD Unavailable +[phone] Susan Robert CHW Unavailable Unavailable Jana Vick CHW Unavailable UnavailTor Brown DPM Unavailable +[phone] Lorri Larsen MD Unavailable +[phone] Lorri Larsen MD Unavailable +[phone] Rafita Ayers MD Unavailable +[phone] Kaelyn New Unavailable +[phone] Marino Hayes MD Unavailable + [phone] Marino Hayes MD Unavailable [phone] Nataliia Gomez MD Unavailable Encounter Details Date [...] st Contact Info) Description 01/05/2024 1:00 PM DNA ANALYST Office Visit [facility] [address] [place] [address] Onesimo Bruno MD [address]0 [place] [address] documented as of this encounter Visit Diagnoses Not on filedocumented in this encounter Additional Health Concerns Assessment Noted Time PHQ-9 Depression Total Score: 11 022 10:44 AM DNA ANALYST documented as of this encounter Care Teams Roll Edge Stitcher Hand Relationship Specialty Start Date End Date Onesimo Bruno MD PCP - General 08/11/06 Bhavna Mac, GenesisD 0 [place] [address] Pharmacist Pharmacist 07/11/18 Isaac Bro, RN Lead Store Operations Associate Primary Care - CC 09/01/18 Ilda Tapia CHW Community Health Worker Primary Care - CC 09/01/1804/22 [place] [address] [place] [address] Assigned PCP 07/30/20 Florentino Jackson MD [facility] [address] [facility] 602 [place] [address] Assigned Surgical Provider 08/29/20 09/27/20 Nataliia Gomez MD [address] [facility], [address] [place] [address] Assigned Heart and Vascular Provider 08/29/20 10/08/22 [place] [address] [place] [address] [address] [place] [address] Assigned Allergy Provider 08/29/20 04/16/22 Rafita Ayers MD [address] [place] [address] Assigned Pulmonology Provider 10/12/20 06/06/23 Flo Henry MD 1875 [facility] [place] 250 [place], [place] [address] Assigned Behavioral Health Provider 09/21/20 Susan Robert CHW Community Health Worker Primary Care - CC 04/23/2106/15/21 Jana Vick CHW Community Health Worker Primary Care - CC 06/08/21 Tor Joseph DPM [address] [facility] [address] [place] [address] Assigned Musculoskeletal Provider 07/05/21 03/19/22 Lorri Larsen MD [address] [place] [address] 535945 Otolaryngology 07/21/21 Lorri Larsen MD 9 [place] [address] Assigned Surgical Provider 10/10/21 04/28/23 Rafita Ayers MD [address] [place] [address] Critical Care 11/30/21 Kaelyn New AuD [address] [place] [address] Raymond Mill Operator Audiology 12/09/21 Marino Hayes MD [address] [place] [address] Cardiovascular Disease 09/28/22 Marino Hayes MD [address] [place] [address] Assigned Heart and Vascular Provider 10/09/22 06/06/23 Nataliia Gomez MD [address] [place] [address], [address] [place] [address] Assigned Heart and Vascular Provider 06/07/23 documented as of this encounter
--- OUTSIDE RECORDS SUMMARY | 2023-11-14 18:39 | XMS_ITS | Encounter Summary ---
Author Organization [facility] Address [address] [place] [address] Care Team Providers Care Insulation Nozzleman Name Role Phone Onesimo Bruno MD Primary Care Provider [phone] Bhavna Mac PharmD Unavailable +[phone] Isaac Bro RN Unavailable [phone] Ilda Tapia CHW Unavailable +[phone] Onesimo Bruno MD Unavailable [phone] Manuel Calderon MD, Jon Unavailable [phone] Nataliia Gomez MD Unavailable Luly Grant MD Unavailable +[phone] Rafita Ayers MD Unavailable +[phone] Flo Henry MD Unavailable +[phone] Susan Robert CHW Unavailable Unavailable Jana Vick CHW Unavailable UnavailTor Brown DPM Unavailable +[phone] Lorri Larsen MD Unavailable +[phone] Lorri Larsen MD Unavailable +[phone] Rafita Ayers MD Unavailable +[phone] Kaelyn New Unavailable +[phone] Marino Hayes MD Unavailable + [phone] Marino Hayes MD Unavailable [phone] Nataliia Gomez MD Unavailable Encounter Details Date [...] st Contact Info) Description 01/05/2024 1:00 PM LIBRARY CATALOGING TECHNICIAN Office Visit [facility] [address] [place] [address] Onesimo Bruno MD [address]0 [place] [address] documented as of this encounter Visit Diagnoses Not on filedocumented in this encounter Additional Health Concerns Assessment Noted Time PHQ-9 Depression Total Score: 8 06/21/19 19 2:31 PM CDT documented as of this encounter Care Teams Insulation Nozzleman Relationship Specialty Start Date End Date Onesimo Bruno MD PCP - General 08/11/06 Bhavna Mac, GenesisD [address] [place] [address] Pharmacist Pharmacist 07/11/18 Isaac Bro, RN Lead Bander Hand Primary Care - CC 09/01/18 Ilda Tapia CHW Community Health Worker Primary Care - CC 09/01/1804/22 [place] [address] [place] [address] Assigned PCP 07/30/20 Florentino Jackson MD [facility] [address] [facility] 602 [place] [address] Assigned Surgical Provider 08/29/20 09/27/20 Nataliia Gomez MD [address] [facility], [address] [place] [address] Assigned Heart and Vascular Provider 08/29/20 10/08/22 [place] [address] [place] [address] [address] [place] [address] Assigned Allergy Provider 08/29/20 04/16/22 Rafita Ayers MD [address] [place] [address]8535 Assigned Pulmonology Provider 10/12/20 06/06/23 Flo Henry MD 1875 [facility] 250 [place], [place] [address] Assigned Behavioral Health Provider 09/21/20 Susan Robert CHW Community Health Worker Primary Care - CC 04/23/2106/15/21 Jana Vick CHW Community Health Worker Primary Care - CC 06/08/21 Tor Joseph DPM [address] [facility] [address] [place] [address] Assigned Musculoskeletal Provider 07/05/21 03/19/22 Lorri Larsen MD [address] [place] [address] Otolaryngology 07/21/21 Lorri Lasren MD 9 [place] [address] Assigned Surgical Provider 10/10/21 04/28/23 Rafita Ayers MD [address] [place] [address] Critical Care 11/30/21 Kaelyn New AuD [address] [place] [address] Ambulatory Service Representative Audiology 12/09/21 Marino Hayes MD [address] [place] [address] Cardiovascular Disease 09/28/22 Marino Hayes MD [address] [place] [address] Assigned Heart and Vascular Provider 10/09/22 06/06/23 Nataliia Gomez MD [address] [place] [address], [address] [place] [address] Assigned Heart and Vascular Provider 06/07/23 documented as of this encounter
--- OUTSIDE RECORDS SUMMARY | 2023-11-14 18:39 | XMS_ITS | Encounter Summary ---
Author Organization [place] Address [address] [place] [address] Care Team Providers Care Artists' Booking Representative Name Role Phone Onesimo Bruno MD Primary Care Provider [phone] Bhavna Mac PharmD Unavailable +[phone] Isaac Bro RN Unavailable +[phone] Ilda Tapia CHW Unavailable +[phone] Onesimo Bruno MD Unavailable +[phone] Nataliia Gomez MD Unavailable Luly Grant MD Unavailable +[phone] Rafita Ayers MD Unavailable +[phone] Flo Henry MD Unavailable +[phone] Susan Robert CHW Unavailable Unavailable Jana Vick CHW Unavailable UnavailTor Brown DPM Unavailable +[phone] Lorri Larsen MD Unavailable +[phone] Lorri Larsen MD Unavailable +[phone] Rafita Ayers MD Unavailable +[phone] Kaelyn New Unavailable +[phone] Marino Hayes MD Unavailable + [phone] Marino Hayes MD Unavailable + [phone] Nataliia Gomez MD Unavailable Encounter Details Date Type Department Care Team (Late st Contact Info) Description 10/14/2020 MyC Medical Advice [facility] 2945 [facility] 200 [place] [phone] Luly Grant MD 1655 [facility] 111 [place], [place] [phone] Social History Tobacco Use Types Packs/Day Years [...] (Late Contact Info) Description 01/05/2024 1:00 PM INFORMATION TECHNOLOGY ARCHITECT Office Visit [facility] [address] [place] [phone] Onesimo Bruno MD 1390 [place] [address] documented as of this encounter Visit Diagnoses Not on filedocumented in this encounter Additional Health Concerns Assessment Noted Time PHQ-9 Depression Total Score: 14 022 10:49 AM INFORMATION TECHNOLOGY ARCHITECT documented as of this encounter Care Teams Artists' Booking Representative Relationship Specialty Start Date End Date Onesimo Bruno MD PCP - General 08/11/06 Bhavna Mac, GenesisD 870 [place] [address] Pharmacist Pharmacist 07/11/18 Isaac Bro, RN Lead Hvac Installer Primary Care - CC 09/01/18 Ilda Tapia CHW Community Health Worker Primary Care - CC 09/01/1804/22 Onesimo Bruno MD 1390 [place] [address] Assigned PCP 07/30/20 Nataliia Gomez MD [address] [place] [address], [address] [place] [address] Assigned Heart and Vascular Provider 08/29/20 10/08/22 [place] [address] [place] [address] [address] [place], [place] [phone] Assigned Allergy Provider 08/29/20 04/16/22 Rafita Ayers MD 909 [place] [address] Assigned Pulmonology Provider 10/12/20 06/06/23 Flo Henry MD [address] [phone] Assigned Behavioral Health Provider 09/21/20 Susan Robert, ELISA Community Health Worker Primary Care - CC 04/23/2106/15/21 Jana Vick CHW Community Health Worker Primary Care - CC 06/08/21 Tor Joseph DPM 2945 [facility] [address] [place] [address] Assigned Musculoskeletal Provider 07/05/21 03/19/22 Lorri Larsen MD [address] [place] [address] Otolaryngology 07/21/21 Lorri Larsen MD [address] [place] [address] Assigned Surgical Provider 10/10/21 04/28/23 Rafita Ayers MD [address] [place] [address] Critical Care 11/30/21 Kaelyn New AuD [address] [place] [address] Pediatric Physiatrist Audiology 12/09/21 Marino Hayes MD [address] [place] [address] Cardiovascular Disease 09/28/22 Marino Hayes MD [address] [place] [address] Assigned Heart and Vascular Provider 10/09/22 06/06/23 Nataliia Gomez MD [address] [place] [address], [address] [place] [address] Assigned Heart and Vascular Provider 06/07/23 documented as of this encounter
--- OUTSIDE RECORDS SUMMARY | 2023-11-14 18:39 | XMS_ITS | Encounter Summary ---
Author Organization [place] Address [address] [place] [address] Care Team Providers Care Telegraph Repeater Mechanic Name Role Phone Onesimo Bruno MD Primary Care Provider [phone] Bhavna Mac PharmD Unavailable +[phone] Isaac Bro RN Unavailable [phone] Ilda Tapia CHW Unavailable +[phone] Onesimo Bruno MD Unavailable +[phone] Manuel Calderon MD, Jon Unavailable +[phone] Nataliia Gomez MD Unavailable Luly Grant MD Unavailable +[phone] Rafita Ayers MD Unavailable +[phone] Flo Henry MD Unavailable +[phone] Susan Robert CHW Unavailable Unavailable Jana Vick CHW Unavailable UnavailTor Brown DPM Unavailable +[phone] Lorri Larsen MD Unavailable +[phone] Lorri Larsen MD Unavailable +[phone] Rafita Ayers MD Unavailable +[phone] Kaelyn New Unavailable +[phone] Marino Hayes MD Unavailable + [phone] Marino Hayes MD Unavailable [phone] Nataliia Gomez MD Unavailable Reason for Visit * Reason Comments Clinic Care Coordination - Follow-up Encounter Details Date Type Department Care Team (Latest Contact Info) Description 08/01/2020 [facility] - [facility] [address] [place] [phone] Ilda Tapia CHW Clinic Care Coordination - [...] st Contact Info) Description 01/05/2024 1:00 PM PEDIATRIC RADIOLOGIST Office Visit [address] [phone] Onesimo Bruno MD [address] [place] [address] documented as of this encounter Visit Diagnoses Not on filedocumented in this encounter Additional Health Concerns Assessment Noted Time PHQ-9 Depression Total Score: 14 022 10:49 AM PEDIATRIC RADIOLOGIST documented as of this encounter Care Teams Telegraph Repeater Mechanic Relationship Specialty Start Date End Date Onesimo Bruno MD PCP - General 08/11/06 Bhavna Mac, GenesisD 870 [place] [address] Pharmacist Pharmacist 07/11/18 Isaac Bro, RN Lead Turret Punch Press Operator Primary Care - CC 09/01/18 Ilda Tapia W Community Health Worker Primary Care - CC 09/01/1804/22 Onesimo Bruno MD 1390 [place] [address] Assigned PCP 07/30/20 Florentino Jackson MD [facility] [address] [place] [address] 602 [place] [address] Assigned Surgical Provider 08/29/20 09/27/20 Nataliia Gomez MD [address] [facility], [address] [place] [address] Assigned Heart and Vascular Provider 08/29/20 10/08/22 Luly Grant MD 1655 [facility] [address] [place] [address] Assigned Allergy Provider 08/29/20 04/16/22 Rafita Ayers MD 909 [place] [address] Assigned Pulmonology Provider 10/12/20 06/06/23 Flo Henry MD 1875 [facility] 250 [place] [address] Assigned Behavioral Health Provider 09/21/20 Susan Robert, W Community Health Worker Primary Care - CC 04/23/2106/15/21 Jana Vick, W Community Health Worker Primary Care - CC 06/08/21 Tor Joseph DPM [facility] [address] [place] [address] Assigned Musculoskeletal Provider 07/05/21 03/19/22 Lorri Larsen MD [address] [place] [address] Otolaryngology 07/21/21 Lorri Larsen MD [address] [place] [address] Assigned Surgical Provider 10/10/21 04/28/23 Rafita Ayers MD [address] [place] [address] Critical Care 11/30/21 Kaelyn New, Shena 1825 [place] [address] Elevators Inspector Audiology 12/09/21 Marino Hayes MD [address] [place] [address] Cardiovascular Disease 09/28/22 Marino Hayes MD [address] [place] [address] Assigned Heart and Vascular Provider 10/09/22 06/06/23 Nataliia Gomez MD [address] [facility], [address] [place] [address] Assigned Heart and Vascular Provider 06/07/23 documented as of this encounter
--- OUTSIDE RECORDS SUMMARY | 2023-11-14 18:39 | XMS_ITS | Encounter Summary ---
Author Organization [place] Address [address] [place] [address] Care Team Providers Care Boring Machine Operator Horizontal Name Role Phone Onesimo Bruno MD Primary Care Provider [phone] Bhavna Mac PharmD Unavailable +[phone] Isaac Bro RN Unavailable [phone] Ilda Tapia CHW Unavailable +[phone] Onesimo Bruno MD Unavailable [phone] Manuel Calderon MD, Jon Unavailable +[phone] Nataliia Gomez MD Unavailable Luly Grant MD Unavailable +[phone] Rafita Ayers MD Unavailable +[phone] Flo Henry MD Unavailable +[phone] Susan Robert CHW Unavailable Unavailable Jana Vick CHW Unavailable UnavailTor Brown DPM Unavailable +[phone] Lorri Larsen MD Unavailable +[phone] Lorri Larsen MD Unavailable +[phone] Rafita Ayers MD Unavailable +[phone] Kaelyn New Unavailable +[phone] Marino Hayes MD Unavailable + [phone] Marino Hayes MD Unavailable + [phone] Nataliia Gomez MD Unavailable Encounter Details Date Type Department Care Team (Late st Contact Info) Description 07/15/2020 External Order Results [facility] [address] [place] [address] Outside, Provider Social History Tobacco Use Types [...] st Contact Info) Description 01/05/2024 1:00 PM SANITARIAN Office Visit [facility] [address] [place] [phone] Onesimo Bruno MD 1390 [place] [address] documented as of this encounter Procedures Procedure [...] CDT Verified by Sandeep Nation on 09/10/2020. [facility] [address] [place] [address] Verified by Sandeep Nation on 09/10/2020. Patient Reported [facility]OR[facility] PFT COVID-19 EXTERNAL RESULTS COVID-19 External Result Scanned into Patient Record by Rifiniti Refer to Result Comment/Narrative for exact performing laboratory [address] documented in this encounter Visit Diagnoses Not on filedocumented in this encounter Additional Health Concerns Assessment Noted Time PHQ-9 Depression Total Score: 11 022 10:44 AM SANITARIAN documented as of this encounter Care Teams Boring Machine Operator Horizontal Relationship Specialty Start Date End Date Onesimo Bruno MD PCP - General 08/11/06 Bhavna Mac PharmD 870 [place] [address] Pharmacist Pharmacist 07/11/18 Isaac Bro, RN Lead Director Long Term Care Primary Care - CC 09/01/18 Ilda Tapia Vaibhav Community Health Worker Primary Care - CC 09/01/1804/22 Onesimo Bruno MD 1390 [place] [address] Assigned PCP 07/30/20 Florentino Jackson MD [facility] [address] [place] [address] 602 [place] [address] Assigned Surgical Provider 08/29/20 09/27/20 Nataliia Gomez MD 1600 [facility], [address] [place], [place] [address] Assigned Heart and Vascular Provider 08/29/20 10/08/22 Luly Grant MD 1655 [facility] [address] [place] [address] Assigned Allergy Provider 08/29/20 04/16/22 Rafita Ayers MD [address] [place] [address] Assigned Pulmonology Provider 10/12/20 06/06/23 Flo Henry MD [address] [address] Assigned Behavioral Health Provider 09/21/20 Susan Robert, W Community Health Worker Primary Care - CC 04/23/2106/15/21 Jana Vick CHW Community Health Worker Primary Care - CC 06/08/21 Tor Joseph DPM 2945 [facility] [address] [place] [address] Assigned Musculoskeletal Provider 07/05/21 03/19/22 Lorri Larsen MD [address] [place] [address] Otolaryngology 07/21/21 Lorri Larsen MD [address] [place] [address] Assigned Surgical Provider 10/10/21 04/28/23 Rafita Ayers MD [address] [place] [address] Critical Care 11/30/21 Kaelyn New AuD 1825 [place] [address] Small Order Cutter Audiology 12/09/21 Marino Hayes MD 6 [place] [address] Cardiovascular Disease 09/28/22 Marino Hayes MD 6 [place] [address] Assigned Heart and Vascular Provider 10/09/22 06/06/23 Nataliia Gomez MD 1600 [facility], [address] [place], [place] [address] Assigned Heart and Vascular Provider 06/07/23 documented as of this encounter
--- OUTSIDE RECORDS SUMMARY | 2023-11-14 18:39 | XMS_ITS | Encounter Summary ---
Author Organization [facility] Address [address] [place] [address] Care Team Providers Care Recreation Clerk Name Role Phone Onesimo Bruno MD Primary Care Provider [phone] Bhavna Mac PharmD Unavailable +[phone] Isaac Bro RN Unavailable [phone] Ilda Tapia CHW Unavailable +[phone] Onesimo Bruno MD Unavailable [phone] Manuel Calderon MD, Jon Unavailable +[phone] Nataliia Gomez MD Unavailable Luly Grant MD Unavailable +[phone] Rafita Ayers MD Unavailable +[phone] Flo Henry MD Unavailable +[phone] Susan Robert CHW Unavailable Unavailable Jana Vick CHW Unavailable UnavailTor Brown DPM Unavailable +[phone] Lorri Larsen MD Unavailable +[phone] Lorri Larsen MD Unavailable +[phone] Rafita Ayers MD Unavailable +[phone] Kaelyn New Unavailable +[phone] Marino Hayes MD Unavailable + [phone] Marino Hayes MD Unavailable + [phone] Nataliia Gomez MD Unavailable Reason for Visit * Reason Comments Clinic Care Coordination - Follow-up Encounter Details Date Type Department Care Team (Latest Contact Info) Description 08/14/2020 Communication - [facility] [address] [phone] Ilda Tapia CHW Clinic Care Coordination - [...] 9:16 AM Encounter Date: 08/14/2020 Status: Signed Automatic Grinding Machine Operator: Ilda Kaye CHW (Community Health Worker) Patient spoke with CCC RN on 08/06/20 and discussed goals. CCC RN will follow up in 2 weeks CHW delegations: None Next outreach due: 09/05/20 documented in this encounter Plan of Treatment Upcoming Encounters Date Type Department Care Team (Late st Contact Info) Description 01/05/2024 1:00 PM KEYLINER Office Visit [address] [phone] Onesimo Bruno MD 1390 [place] [address] documented as of this encounter Visit Diagnoses Not on filedocumented in this encounter Additional Health Concerns Assessment Noted Time PHQ-9 Depression Total Score: 14 022 10:49 AM KEYLINER documented as of this encounter Care Teams Recreation Clerk Relationship Specialty Start Date End Date Onesimo Bruno MD PCP - General 08/11/06 Bhavna Mac PharmD 870 [place] [address] Pharmacist Pharmacist 07/11/18 Isaac Bro, RN Lead Gas Engine Performance Engineer Primary Care - CC 09/01/18 Ilda Tapia Vaibhav Community Health Worker Primary Care - CC 09/01/1804/22 Onesimo Bruno MD 1390 [place] [address] Assigned PCP 07/30/20 Florentino Jackson MD [facility] [address] [place] [address] 602 [place] [address] Assigned Surgical Provider 08/29/20 09/27/20 Nataliia Gomez MD [address] [facility], [address] [place], [place] [address] Assigned Heart and Vascular Provider 08/29/20 10/08/22 Luly Grant MD 1655 [facility] [address] [place] [address] Assigned Allergy Provider 08/29/20 04/16/22 Rafita Ayers MD [address] [place] [address] Assigned Pulmonology Provider 10/12/20 06/06/23 Flo Henry MD [address] [address] Assigned Behavioral Health Provider 09/21/20 Susan Robert W Community Health Worker Primary Care - CC 04/23/2106/15/21 Jana Vick CHW Community Health Worker Primary Care - CC 06/08/21 Tor Joseph DPM [facility]5 [facility] [address] [place] [address] Assigned Musculoskeletal Provider 07/05/21 03/19/22 Lorri Larsen MD [address] [place] [address] Otolaryngology 07/21/21 Lorri Larsen MD [address] [place] [address] Assigned Surgical Provider 10/10/21 04/28/23 Rafita Ayers MD [address] [place] [address] Critical Care 11/30/21 Kaelyn New, Shena 1825 [place] [address] Liquified Natural Gas Specialist Audiology 12/09/21 Marino Hayes MD 6 [place] [address] Cardiovascular Disease 09/28/22 Marino Hayes MD [address] [place] [address] Assigned Heart and Vascular Provider 10/09/22 06/06/23 Nataliia Gomez MD [address] [facility], [address] [place], [place] [address] Assigned Heart and Vascular Provider 06/07/23 documented as of this encounter
--- OUTSIDE RECORDS SUMMARY | 2023-11-14 18:39 | XMS_ITS | Encounter Summary ---
Author Organization [facility] Address [address] [place] [address] Care Team Providers Care Inspector Canned Food Reconditioning Name Role Phone Onesimo Bruno MD Primary Care Provider [phone] Bhavna Mac PharmD Unavailable +[phone] Isaac Bro RN Unavailable [phone] Ilda Tapia CHW Unavailable +[phone] Onesimo Bruno MD Unavailable +[phone] Nataliia Gomez MD Unavailable Luly Grant MD Unavailable +[phone] Rafita Ayers MD Unavailable +[phone] Flo Henry MD Unavailable +[phone] Susan Robert CHW Unavailable Unavailable Jana Vick CHW Unavailable UnavailTor Brown DPM Unavailable +[phone] Lorri Larsen MD Unavailable +[phone] Lorri Larsen MD Unavailable +[phone] Rafita Ayers MD Unavailable +[phone] Kaelyn New Unavailable [phone] Marino Hayes MD Unavailable + [phone] Marino Hayes MD Unavailable + [phone] Nataliia Gomez MD Unavailable Encounter Details Date Type Department Care Team (Late Contact Info) Description 01/24/2021 MyC Medical Advice [address] [phone] Onesimo Bruno MD [address] [place] [address] Social History Tobacco Use Types Packs/Day Years [...] st Contact Info) Description 01/05/2024 1:00 PM SHELF FILLER Office Visit [address] [phone] Onesimo Bruno MD [address] [place] [address] documented as of this encounter Visit Diagnoses Not on filedocumented in this encounter Additional Health Concerns Assessment Noted Time PHQ-9 Depression Total Score: 7 11/05/19 21 4:49 PM CDT documented as of this encounter Care Teams Inspector Canned Food Reconditioning Relationship Specialty Start Date End Date Onesimo Bruno MD PCP - General 08/11/06 Bhavna Mac, GenesisD [address] [place] [address] Pharmacist Pharmacist 07/11/18 Isaac Bro, RN Lead Safety Inspector Primary Care - CC 09/01/18 Ilda Tapia CHW Community Health Worker Primary Care - CC 09/01/1804/22 Onesimo Bruno MD 1390 [place] [address] Assigned PCP 07/30/20 Nataliia Gomez MD 1600 [facility], [address] [place], [place] [address] Assigned Heart and Vascular Provider 08/29/20 10/08/22 [place] [address] [place] [address] 111 [place], [place] [address] Assigned Allergy Provider 08/29/20 04/16/22 Rafita Ayers MD 909 [place] [address] Assigned Pulmonology Provider 10/12/20 06/06/23 Flo Henry MD [address] [phone] Assigned Behavioral Health Provider 09/21/20 Susan Robert, ELISA Community Health Worker Primary Care - CC 04/23/2106/15/21 Jana Vick CHW Community Health Worker Primary Care - CC 06/08/21 Tor Joseph DPM 2945 [facility] [address] [place] [address] Assigned Musculoskeletal Provider 07/05/21 03/19/22 Lorri Larsen MD [address] [place] [address] Otolaryngology 07/21/21 Lorri Larsen MD [address] [place] [address] Assigned Surgical Provider 10/10/21 04/28/23 Rafita Ayers MD [address] [place] [address] Critical Care 11/30/21 Kaelyn New AuD [address] [place] [address] Customer Support Manager Audiology 12/09/21 Marino Hayes MD [address] [place] [address] Cardiovascular Disease 09/28/22 Marino Hayes MD [address] [place] [address] Assigned Heart and Vascular Provider 10/09/22 06/06/23 Nataliia Gomez MD [address] [place] [address], [address] [place] [address] Assigned Heart and Vascular Provider 06/07/23 documented as of this encounter
--- OUTSIDE RECORDS SUMMARY | 2023-11-14 18:39 | XMS_ITS | Encounter Summary ---
Author Organization [place] Address [address] [place] [address] Care Team Providers Care Printed Forms Proofreader Name Role Phone Onesimo Bruno MD Primary Care Provider [phone] Bhavna Mac PharmD Unavailable +[phone] Isaac Bro RN Unavailable [phone] Ilda Tapia CHW Unavailable +[phone] Onesimo Bruno MD Unavailable [phone] Manuel Calderon MD, Jon Unavailable +[phone] Nataliia Gomez MD Unavailable Luly Grant MD Unavailable +[phone] Rafita Ayers MD Unavailable +[phone] Flo Henry MD Unavailable +[phone] Susan Robert CHW Unavailable Unavailable Jana Vick CHW Unavailable UnavailTor Brown DPM Unavailable +[phone] Lorri Larsen MD Unavailable +[phone] Lorri Larsen MD Unavailable +[phone] Rafita Ayers MD Unavailable +[phone] Kaelyn New Unavailable +[phone] Marino Hayes MD Unavailable + [phone] Marino Hayes MD Unavailable + [phone] Nataliia Gomez MD Unavailable Reason for Visit * Reason Comments Clinic Care Coordination - Follow-up Encounter Details Date Type Department Care Team (Latest Contact Info) Description 08/06/2020 Communication - [facility] [address] [place] [address] Isaac Bro, RN Clinic Care Coordination - [...] concerns. Provided Cordell with telephone number for [facility] to schedule patient's CT colonoscopy. Radiation Monitor also provided patient with the phone number to [facility] to schedule patient's follow up appointment. [...] like to see someone before November. Contacted [facility] and learned that Dr. JOHN Ji is not taking new patients at this time and Dr. Trevor Drummond is not longer practicing at [facility]. Patient was informed of this. Patient and Cordell were provided with the phone number for [facility] scheduling as there are other psychiatrists [...] work with the weight loss Clinic in [facility]. Intervention/Education provided during outreach: Discussed the importance of taking his medicationsdaily as directed. Encouraged patient to be evaluated at Urgent Care related to ongoing persistent cough and fatigue. Outreach Frequency: monthly Plan: CCC RN will continue to monitor, support patient with current goal and will be available to assist as nursing needs arise. Performance Reporter will follow up in two weeks. documented in this encounter Plan of Treatment Upcoming Encounters Date Type Department Care Team (Late Contact Info) Description 01/05/2024 1:00 PM ROLLING MILL OPERATOR HELPER Office Visit [facility] [address] [place] [address] Onesimo Bruno MD [address] [place] [address] documented as of this encounter Visit Diagnoses Not on filedocumented in this encounter Additional Health Concerns Assessment Noted Time PHQ-9 Depression Total Score: 14 022 10:49 AM ROLLING MILL OPERATOR HELPER documented as of this encounter Care Teams Printed Forms Proofreader Relationship Specialty Start Date End Date Onesimo Bruno MD PCP - General 08/11/06 Bhavna Mac, GenesisD [address] [place] [address] Pharmacist Pharmacist 07/11/18 Isaac Bro, RN Lead Performance Reporter Primary Care - CC 09/01/18 Ilda Tapia Vaibhav Community Health Worker Primary Care - CC 09/01/1804/22 Onesimo Bruno MD [address] [place] [address] Assigned PCP 07/30/20 Florentino Jackson MD [facility] [address] [place] [address] [address] [place] [address] Assigned Surgical Provider 08/29/20 09/27/20 Nataliia Gomez MD [address] [facility], [address] [place], [place] [address] Assigned Heart and Vascular Provider 08/29/20 10/08/22 Luly Grant MD [address] [facility] [address] [place], [place] [address] Assigned Allergy Provider 08/29/20 04/16/22 Rafita Ayers MD 909 [place] [address] Assigned Pulmonology Provider 10/12/20 06/06/23 Flo Henry MD [facility] [address] [phone] Assigned Behavioral Health Provider 09/21/20 Susan Robert, ELISA Community Health Worker Primary Care - CC 04/23/2106/15/21 Jana Vick, W Community Health Worker Primary Care - CC 06/08/21 Tor Joseph DPM [address] [facility] [address] [place] [address] Assigned Musculoskeletal Provider 07/05/21 03/19/22 Lorri Larsen MD [address] [place] [address] Otolaryngology 07/21/21 Lorri Larsen MD [address] [place] [address] Assigned Surgical Provider 10/10/21 04/28/23 Rafita Ayers MD [address] [place] [address] Critical Care 11/30/21 Kaelyn New AuD [address] [place] [address] Rn Medical Surgical Audiology 12/09/21 Marino Hayes MD [address] [place] [address] Cardiovascular Disease 09/28/22 Marino Hayes MD [address] [place] [address] Assigned Heart and Vascular Provider 10/09/22 06/06/23 Nataliia Gomez MD [address] [facility], [address] [place] [address] Assigned Heart and Vascular Provider 06/07/23 documented as of this encounter
--- OUTSIDE RECORDS SUMMARY | 2023-11-14 18:39 | XMS_ITS | Encounter Summary ---
Author Organization [place] Address [address] [place] [address] Care Team Providers Care Commercial Service Technician Name Role Phone Onesimo Bruno MD Primary Care Provider [phone] Bhavna Mac PharmD Unavailable +[phone] Isaac Bro RN Unavailable [phone] Ilda Tapia CHW Unavailable +[phone] Onesimo Bruno MD Unavailable [phone] Nataliia Gomez MD Unavailable Luly Grant MD Unavailable +[phone] Rafita Ayers MD Unavailable +[phone] Flo Henry MD Unavailable +[phone] Susan Robert CHW Unavailable Unavailable Jana Vick CHW Unavailable UnavailTor Brown DPM Unavailable +[phone] Lorri Larsen MD Unavailable +[phone] Lorri Larsen MD Unavailable +[phone] Rafita Ayers MD Unavailable +[phone] Kaelyn New Unavailable [phone] Marino Hayes MD Unavailable + [phone] Marino Hayes MD Unavailable + [phone] Nataliia Gomez MD Unavailable Encounter Details Date Type Department Care Team (Late Contact Info) Description 10/12/2020 MyC Medical Advice [facility] [address] [facility] [address] [place] [phone] Rafita Ayers MD [address] [place] [address] Social History Tobacco Use Types Packs/Day Years [...] (Late Contact Info) Description 01/05/2024 1:00 PM INFECTION CONTROL PRACTITIONER Office Visit [facility] [address] [place] [phone] Onesimo Bruno MD [address]0 [place] [address] documented as of this encounter Visit Diagnoses Not on filedocumented in this encounter Additional Health Concerns Assessment Noted Time PHQ-9 Depression Total Score: 14 022 10:49 AM INFECTION CONTROL PRACTITIONER documented as of this encounter Care Teams Commercial Service Technician Relationship Specialty Start Date End Date Onesimo Bruno MD PCP - General 08/11/06 Bhavna Mac, PharmD [address] [place] [address] Pharmacist Pharmacist 07/11/18 Isaac Bro, RN Lead Plant Propagator Primary Care - CC 09/01/18 Ilda Tapia CHW Community Health Worker Primary Care - CC 09/01/1804/22 Onesimo Bruno MD [address]0 [place] [address] Assigned PCP 07/30/20 Nataliia Gomez MD [address] [place] [address], [address] [place] [address] Assigned Heart and Vascular Provider 08/29/20 10/08/22 [place] [address] [place] [address] [address] [place], [place] [phone] Assigned Allergy Provider 08/29/20 04/16/22 Rafita Ayers MD 9[address] [place] [address] Assigned Pulmonology Provider 10/12/20 06/06/23 Flo Henry MD [address] [phone] Assigned Behavioral Health Provider 09/21/20 Susan Robert, ELISA Community Health Worker Primary Care - CC 04/23/2106/15/21 Jana Vick CHW Community Health Worker Primary Care - CC 06/08/21 Tor Joseph DPM 2945 [facility] [address] [place] [address] Assigned Musculoskeletal Provider 07/05/21 03/19/22 Lorri Larsen MD [address] [place] [address] Otolaryngology 07/21/21 Lorri Larsen MD [address] [place] [address] Assigned Surgical Provider 10/10/21 04/28/23 Rafita Ayers MD [address] [place] [address] Critical Care 11/30/21 Kaelyn New, Shena [address] [place] [address] Medical Transcription Audiology 12/09/21 Marino Hayes MD [address] [place] [address] Cardiovascular Disease 09/28/22 Marino Hayes MD [address] [place] [address] Assigned Heart and Vascular Provider 10/09/22 06/06/23 Nataliia Gomez MD [address] [place] [address], [address] [place] [address] Assigned Heart and Vascular Provider 06/07/23 documented as of this encounter
--- OUTSIDE RECORDS SUMMARY | 2023-11-14 18:39 | XMS_ITS | Encounter Summary ---
Author Organization [place] Address [address] [place] [address] Care Team Providers Care Call Center Associate Name Role Phone Onesimo Bruno MD Primary Care Provider [phone] Bhavna Mac PharmD Unavailable +[phone] Isaac Bro RN Unavailable [phone] Ilda Tapia CHW Unavailable +[phone] Onesimo Bruno MD Unavailable Nataliia Gomez MD Unavailable Luly Grant MD Unavailable +[phone] Rafita Ayers MD Unavailable +[phone] Flo Henry MD Unavailable +[phone] Susan Robert CHW Unavailable Unavailable Jana Vick CHW Unavailable UnavailTor Brown DPM Unavailable +[phone] Lorri Larsen MD Unavailable +[phone] Lorri Larsen MD Unavailable +[phone] Rafita Ayers MD Unavailable +[phone] Kaelyn New Unavailable [phone] Marino Hayes MD Unavailable + [phone] Marino Hayes MD Unavailable + [phone] Nataliia Gomez MD Unavailable Encounter Details Date Type Department Care Team (Late st Contact Info) Description 01/24/2021 MyC Medical Advice [facility] 2945 [facility] 200 [place] [phone] Luly Grant MD 1655 [facility] 111 [place], [place] [phone] Social History Tobacco Use Types Packs/Day Years [...] st Contact Info) Description 01/05/2024 1:00 PM HOUSEKEEPER/CUSTODIAN/LAUNDRY WORKER Office Visit [facility] [address] [place] [phone] Onesimo Bruno MD [address]0 [place] [address] documented as of this encounter Visit Diagnoses Not on filedocumented in this encounter Additional Health Concerns Assessment Noted Time PHQ-9 Depression Total Score: 7 11/05/19 21 4:49 PM CDT documented as of this encounter Care Teams Call Center Associate Relationship Specialty Start Date End Date Onesimo Bruno MD PCP - General 08/11/06 Bhavna Mac, GenesisD [address] [place] [address] Pharmacist Pharmacist 07/11/18 Isaac Bro, RN Lead Back Digger Operator Primary Care - CC 09/01/18 Ilda Tapia CHW Community Health Worker Primary Care - CC 09/01/1804/22 Onesimo Bruno MD [address]0 [place] [address] Assigned PCP 07/30/20 Nataliia Gomez MD [address] [facility], [address] [place], [place] [phone] Assigned Heart and Vascular Provider 08/29/20 10/08/22 [place] [address] [place] [address] 111 [place], [place] [phone] Assigned Allergy Provider 08/29/20 04/16/22 Rafita Ayers MD 909 [place] [address] Assigned Pulmonology Provider 10/12/20 06/06/23 Flo Henry MD [address] [phone] Assigned Behavioral Health Provider 09/21/20 Susan Robert, ELISA Community Health Worker Primary Care - CC 04/23/2106/15/21 Jana Vick CHW Community Health Worker Primary Care - CC 06/08/21 Tor Joseph DPM 2945 [facility] [address] [place] [address] Assigned Musculoskeletal Provider 07/05/21 03/19/22 Lorri Larsen MD [address] [place] [address] Otolaryngology 07/21/21 Lorri Larsen MD [address] [place] [address] Assigned Surgical Provider 10/10/21 04/28/23 Rafita Ayers MD [address] [place] [address] Critical Care 11/30/21 Kaelyn New AuD [address] [place] [address] Trimmer And Reinforcer Audiology 12/09/21 Marino Hayes MD [address] [place] [address] Cardiovascular Disease 09/28/22 Marino Hayes MD [address] [place] [address] Assigned Heart and Vascular Provider 10/09/22 06/06/23 Nataliia Gomez MD [address] [place] [address], [address] [place] [address] Assigned Heart and Vascular Provider 06/07/23 documented as of this encounter
--- OUTSIDE RECORDS SUMMARY | 2023-11-14 18:39 | XMS_ITS | Encounter Summary ---
Author Organization [place] Address [address] [place] [address] Care Team Providers Care Application Counselor Name Role Phone Onesimo Bruno MD Primary Care Provider +[phone] Bhavna Mac PharmD Unavailable +[phone] Isaac Bro RN Unavailable [phone] Ilda Tapia CHW Unavailable +[phone] Onesimo Bruno MD Unavailable [phone] Nataliia Gomez MD Unavailable Luly Grant MD Unavailable +[phone] Rafita Ayers MD Unavailable +[phone] Flo Henry MD Unavailable +[phone] Susan Robert CHW Unavailable Unavailable Jana Vick CHW Unavailable UnavailTor Brown DPM Unavailable +[phone] Lorri Larsen MD Unavailable +[phone] Lorri Larsen MD Unavailable +[phone] Rafita Ayers MD Unavailable +[phone] Kaelyn New Unavailable [phone] Marino Hayes MD Unavailable + [phone] Marino Hayes MD Unavailable + [phone] Nataliia Gomez MD Unavailable Encounter Details Date Type Department Care Team (Late st Contact Info) Description 12/16/2020 MyC Medical Advice [facility] Heart [facility] [address] [facility] [address] [place] [address] Nataliia Gomez MD [address] [facility], [address] [place] [address] Social History Tobacco Use Types Packs/Day Years [...] st Contact Info) Description 01/05/2024 1:00 PM EXPEDITER SERVICE ORDER Office Visit [facility] [address] [place] [phone] Onesimo Bruno MD [address]0 [place] [address] documented as of this encounter Visit Diagnoses Not on filedocumented in this encounter Additional Health Concerns Assessment Noted Time PHQ-9 Depression Total Score: 7 11/05/19 21 4:49 PM CDT documented as of this encounter Care Teams Application Counselor Relationship Specialty Start Date End Date Onesimo Bruno MD PCP - General 08/11/06 Bhavna Mac, PharmD 870 [place] [address] Pharmacist Pharmacist 07/11/18 Isaac Bro, RN Lead Sheet Metal Former Primary Care - CC 09/01/18 Ilda Tapia CHW Community Health Worker Primary Care - CC 09/01/1804/22 Onesimo Bruno MD [address]0 [place] [address] Assigned PCP 07/30/20 Nataliia Gomez MD [address] [facility], [address] [place] [address] Assigned Heart and Vascular Provider 08/29/20 10/08/22 [place] [address] [place] [address] [address] [place], [place] [phone] Assigned Allergy Provider 08/29/20 04/16/22 Rafita Ayers MD 909 [place] [address] Assigned Pulmonology Provider 10/12/20 06/06/23 Flo Henry MD [address] [phone] Assigned Behavioral Health Provider 09/21/20 Susan Robert, ELISA Community Health Worker Primary Care - CC 04/23/2106/15/21 Jana Vick CHW Community Health Worker Primary Care - CC 06/08/21 Tor Joseph DPM 2945 [facility] [address] [place] [address] Assigned Musculoskeletal Provider 07/05/21 03/19/22 Lorri Larsen MD [address] [place] [address] Otolaryngology 07/21/21 Lorri Larsen MD [address] [place] [address] Assigned Surgical Provider 10/10/21 04/28/23 Rafita Ayers MD [address] [place] [address] Critical Care 11/30/21 Kaelyn New AuD [facility]5 [place] [address] Journalism Teacher Audiology 12/09/21 Marino Hayes MD [address] [place] [address] Cardiovascular Disease 09/28/22 Marino Hayes MD [address] [place] [address] Assigned Heart and Vascular Provider 10/09/22 06/06/23 Nataliia Gomez MD [address] [place] [address], [address] [place] [address] Assigned Heart and Vascular Provider 06/07/23 documented as of this encounter
--- OUTSIDE RECORDS SUMMARY | 2023-11-14 18:40 | XMS_ITS | Encounter Summary ---
Author Organization [place] Address [address] [place] [address] Care Team Providers Care Speech Language Pathology Assistant Name Role Phone Onesimo Bruno MD Primary Care Provider [phone] Bhavna Mac PharmD Unavailable +[phone] Isaac Bro RN Unavailable [phone] Ilda Tapia CHW Unavailable +[phone] Onesimo Bruno MD Unavailable [phone] Manuel Calderon MD, Jon Unavailable +[phone] Nataliia Gomez MD Unavailable Luly Grant MD Unavailable +[phone] Rafita Ayers MD Unavailable +[phone] Flo Henry MD Unavailable +[phone] Susan Robert CHW Unavailable Unavailable Jana Vick CHW Unavailable UnavailTor Brown DPM Unavailable +[phone] Lorri Larsen MD Unavailable +[phone] Lorri Larsen MD Unavailable +[phone] Rafita Ayers MD Unavailable +[phone] Kaelyn New Unavailable +[phone] Marino Hayes MD Unavailable + [phone] Marino Hayes MD Unavailable [phone] Nataliia Gomez MD Unavailable Encounter Details Date [...] st Contact Info) Description 01/05/2024 1:00 PM PHARMACEUTICAL PLANT OPERATOR Office Visit [facility] [address] [place] [phone] Onesimo Bruno MD 1390 [place] [address] documented as of this encounter Visit Diagnoses Not on filedocumented in this encounter Care Teams Speech Language Pathology Assistant Relationship Specialty Start Date End Date Onesimo Bruno MD PCP - General 08/11/06 Bhavna Mac, GenesisD 870 [place] [address] Pharmacist Pharmacist 07/11/18 Isaac Bro, RN Lead Store Warehouse Associate Primary Care - CC 09/01/18 Ilda Tapia CHW Community Health Worker Primary Care - CC 09/01/1804/22 [place] [address] [place] [address] Assigned PCP 07/30/20 Florentino Jackson MD [facility] [address] [facility] 602 [place] [address] Assigned Surgical Provider 08/29/20 09/27/20 Nataliia Gomez MD [address] [facility], [address] [place] [address] Assigned Heart and Vascular Provider 08/29/20 10/08/22 Luly Grant MD 1655 [facility] [address] [place] [address] Assigned Allergy Provider 08/29/20 04/16/22 Rafita Ayers MD [address] [place] [address] Assigned Pulmonology Provider 10/12/20 06/06/23 Flo Henry MD 1875 [facility] [address] [place], [place] [phone] Assigned Behavioral Health Provider 09/21/20 Susan Robert CHW Community Health Worker Primary Care - CC 04/23/2106/15/21 Jana Vick CHW Community Health Worker Primary Care - CC 06/08/21 Tor Joseph DPM [address] [facility] [address] [place] [address] Assigned Musculoskeletal Provider 07/05/21 03/19/22 Lorri Larsen MD [address] [place] [address] Otolaryngology 07/21/21 Lorri Larsen MD 909 [place] [address] Assigned Surgical Provider 10/10/21 04/28/23 Rafita Ayers MD 9 [place] [address] Critical Care 11/30/21 Kaelyn New AuD [facility]5 [place] [address] Patcher Helper Audiology 12/09/21 Marino Hayes MD [address] [place] [address] Cardiovascular Disease 09/28/22 Marino Hayes MD [address] [place] [address] Assigned Heart and Vascular Provider 10/09/22 06/06/23 Nataliia Gomez MD [address] [facility], [address] [place] [address] Assigned Heart and Vascular Provider 06/07/23 documented as of this encounter
--- OUTSIDE RECORDS SUMMARY | 2023-11-14 18:40 | XMS_ITS | Clinical Summary ---
Author Organization [facility] Address [place], [place] [address] Care Team Providers Care Metal Base Blocker Name Role Phone Onesimo Bruno MD Primary Care Provider Josh Samayoa PsyD, TALA Unavailable [phone] Erick Peacock MD Unavailable [phone] Allergies Active Allergy Reactions Criticality Noted Date [...] by mouth once daily. 09/13/2019 Active L.RHAMNOSUS [id number] OIL ORAL Take 500 mg by mouth once daily. Active ezetimibe (ZETIA) 10 mg tablet Take 10 mg by mouth once daily. 11/03/2019 Active fluticasone (50 mcg per actuation) nasal solution (FLONASE) Inhale 1 [place] in the nostril(s) 2 times daily if [...] Problem Noted Date Diagnosed Date Wheezing 06/29/2023 Overview (06/29/2023): Created by Conversion IDA (obstructive sleep apnea) 06/29/2023 Overview (06/29/2023): Created by Conversion Hypercholesterolemia 06/29/2023 Overview (06/29/2023): Created by Conversion Disease of sebaceous glands 06/29/2023 Overview (06/29/2023): Created by Conversion Replacement Utility updated for latest IMO load Created by Conversion Replacement Utility updated for latest IMO load Hemangioma of skin and subcutaneous tissue 06/28 Overview (06/29/2023): Created by Conversion Atherosclerosis of coronary artery 06/29/2023 Overview (06/29/2023): LAD 7/03, Mid-Distal RCA 6/07Negative Nuclear Study 06/24/10 Created by Conversion [facility] Annotation: Mar 17 2007 12:01PM - Onesimo Bruno: PCI Proximal LAD 7/03, Mid-Distal RCA 6/07Negative Nuclear Study 06/24/10 Replacement Utility updated for latest IMO load Actinic keratosis 06/29/2023 Overview (06/29/2023): Created by Conversion Allergic rhinitis 06/29/2023 Overview (06/29/2023): Created by Conversion Replacement Utility updated for latest IMO load Anemia 06/29/2023 Overview (06/29/2023): Created by Conversion Moderate persistent asthma without complication 09/16/2022 Nocturnal sleep-related eating disorder 04/16/19 23 Urinary urgency 04/16/2021 Slowing of urinary stream 04/16/2021 Primary erectile dysfunction 04/16/2021 Morbid obesity 01/17/2020 Overview (06/29/2023): Last Assessment & Plan: 71 year old [...] has some opportunity with both student life advisor and dietitian from his previous encounter with comprehensive weight management). If semaglutide is not covered, I would check with the patient's front end application developer and see if she could justify an [...] ml/min 05/03/2018 Prediabetes 01/21/2017 Metabolic syndrome 01/21/2017 Overview (06/29/2023): Last Assessment & Plan: Cravings controlled. BP [...] 04/26/2016 Bilateral pulmonary embolism 02/17/2016 Edema 04/30/2014 Overview (06/29/2023): Last Assessment & Plan: Discussed compression. Anticipate that he will do well as he continues with compression and increased movement. 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, sequela 05/19/2016 05/19/2016 Encounters Date Type Department Care Team Description 10/07/2023 9:00 AM CDT Telemedicine [facility] [address] [place] [address] Erick Peacock MD 10/07/2023 [facility] [address] [place] [address] Erick Peacock MD <No scans attached> 10/07/2023 Travel 09/20/2023 10:15 AM CDT Telemedicine [facility] [address] [facility] [address] [place] [address] Josh Samayoa, Germain, LP Individual Therapy 08/16/2023 10:15 AM CDT Telemedicine [facility] [address] [place] [address] [place] [address] Josh Samayoa, Germain, LP Individual Therapy from Last 3 Months Immunizations Name Administration [...] 06/29/2023 2:19 PM CDT Plan of Treatment Health Maintenance [...] Additional history exists Tetanus booster 09/24/2032 09/24/2022, 06/2011, 11/19/2008, Additional history exists Zoster (shingles) series for age 50+ Completed 02/19/2020, 11/26/2019, 08/28/2013 Pneumococcal series for age 65+ Completed 12/15/2020, 12/21/2018, 12/15/2018, Additional history exists Tdap Completed 09/24/2022, 06/2011, 11/19/2008 Care Teams Metal Base Blocker Relationship Specialty Start Date End Date Onesimo Bruno MD [address]0 [place] [address] PCP - General Internal Medicine 11/11/14 Josh Samayoa, Germain, LP [address] [facility] [address] [place] [address] Psychology 06/15/22 Erick Peacock MD [address] [place], [place] [address] Psychiatry Psychiatry 10/07/23
--- OUTSIDE RECORDS SUMMARY | 2023-11-14 18:40 | XMS_ITS | Encounter Summary ---
Author Organization [facility] Address [address] [place] [address] Care Team Providers Care Glue Spreading Machine Operator Name Role Phone Onesimo Bruno MD Primary Care Provider [phone] Bhavna Mac PharmD Unavailable [phone] Isaac Bro RN Unavailable [phone] Ilda Tapia CHW Unavailable [phone] Onesimo Bruno MD Unavailable [phone] Manuel Calderon MD, Jon Unavailable [phone] Nataliia Gomez MD Unavailable Luly Grant MD Unavailable [phone] Rafita Ayers MD Unavailable +[phone] Flo Henry MD Unavailable [phone] Susan Robert CHW Unavailable Unavailable Jana Vick CHW Unavailable UnavailTor Brown DPM Unavailable +[phone] Lorri Larsen MD Unavailable [phone] Lorri Larsen MD Unavailable [phone] Rafita Ayers MD Unavailable +[phone] Kaelyn New Unavailable [phone] Marino Hayes MD Unavailable + [phone] Marino Hayes MD Unavailable [phone] Nataliia Gomez MD Unavailable Encounter Details Date [...] st Contact Info) Description 01/05/2024 1:00 PM REHAB TECH Office Visit [facility] [address] [place] [phone] Onesimo Bruno MD [address] [place] [address] documented as of this encounter Visit Diagnoses Not on filedocumented in this encounter Care Teams Glue Spreading Machine Operator Relationship Specialty Start Date End Date Onesimo Bruno MD PCP - General 08/11/06 Bhavna Mac, Genesis[employer] [address] [place] [address] Pharmacist Pharmacist 07/11/18 Isaac Bro, RN Lead Qc Chemist Primary Care - CC 09/01/18 Ilda Tapia CHW Community Health Worker Primary Care - CC 09/01/1804/22 [place] [address] [place] [address] Assigned PCP 07/30/20 Florentino Jackson MD [facility] [address] [facility] [address] [facility] [address] [place] [address] Assigned Surgical Provider 08/29/20 09/27/20 Nataliia Gomez MD [address] [facility] [place] [address] Assigned Heart and Vascular Provider 08/29/20 10/08/22 Luly Grant MD [address] [facility] [address] [place] [address] Assigned Allergy Provider 08/29/20 04/16/22 Rafita Ayers MD [address] [place] [address] Assigned Pulmonology Provider 10/12/20 06/06/23 Flo Henry MD [address] [facility] [address] [place], [place] [id number] Assigned Behavioral Health Provider 09/21/20 Susan Robert CHW Community Health Worker Primary Care - CC 04/23/2106/15/21 Jana Vick CHW Community Health Worker Primary Care - CC 06/08/21 Tor Joseph DPM [address] [facility] [address] [place] [address] Assigned Musculoskeletal Provider 07/05/21 03/19/22 Lorri Larsen MD [address] [place] [address] Otolaryngology 07/21/21 Lorri Larsen MD [address] [place] [address] Assigned Surgical Provider 10/10/21 04/28/23 Rafita Ayers MD [address] [place] [address] Critical Care 11/30/21 Kaelyn New AuD [facility] [place] [address] Boat Officer Audiology 12/09/21 Marino Hayes MD [address] [place] [address] Cardiovascular Disease 09/28/22 Marino Hayes MD [address] [place] [address] Assigned Heart and Vascular Provider 10/09/22 06/06/23 Nataliia Gomez MD [address] [facility] [place] [address] Assigned Heart and Vascular Provider 06/07/23 documented as of this encounter
--- OUTSIDE RECORDS SUMMARY | 2023-11-14 18:40 | XMS_ITS ---
Author Organization [facility] Address [address] [place] [address] Care Team Providers Care Blurb Writer Name Role Phone Onesimo Bruno MD Primary Care Provider Bhavna Mac PharmD Unavailable Isaac Bro RN Unavailable [phone] Onesimo Bruno MD Unavailable [phone] Flo Henry MD Unavailable Jana Vick Unavailable Unavailabl e Lorri Larsen MD Unavailable [phone] Rafita Ayers MD Unavailable Kaelyn New Unavailable [phone] Marino Hayes MD Unavailable [phone] Nataliia Gomez MD Unavailable Primary Care Care Coordination Status:Enrolled (Active) Start date:11/06/2019 Enrollment date:11/06/2019 Case Team Name Relationship Phone Isaac Bro RN Lead Director [place](Responsib le Staff) [phone] Jana Vick CHW Community Health Worker Continued Care and Services Coordination
[2023-11-14 18:55] LABS: Basophils Absolute Auto 0.02 K/uL (0.00-0.30); Basophils Percent Auto 0.3 % (0.0-3.0); Eosinophils Absolute Auto 0.03 K/uL (0.00-0.50); Eosinophils Percent Auto 0.5 % (0.0-7.0); Hematocrit 47.9 % (37.0-53.0); Hemoglobin* 15.5 gm/dL (13.5-17.5); Immature Granulocytes Abs Auto 0.01 K/uL (0.00-0.30); Immature Granulocytes Pct Auto 0.2 %; Lymphocytes Absolute Auto 1.44 K/uL (0.90-2.90); Lymphocytes Percent Auto 24.4 % (20-44); Mean Corpuscular HGB Conc 32 gm/dL (32-36); Mean Corpuscular Hemoglobin 31 pg (26-34); Mean Corpuscular Volume 95 fL (80-100); Monocytes Percent Auto 9.1 % (0.0-11.0); Neutrophils Absolute Auto 3.87 K/uL (1.7-7.0); Neutrophils Percent Auto 65.5 % (42.0-72.0); Platelet Count* 217 K/uL (140-440); RDW Coefficient of Variation % 12.9 % (11.5-15.5); Red Blood Count 5.05 m/uL (4.30-5.90); White Blood Count* 5.91 K/uL (4.50-11.00)
[2023-11-14 18:57] LABS: Slide Review Reflex No
[2023-11-14 19:15] LABS: Albumin* 4.3 g/dL (3.3-5.0); Chloride* 98 mmol/L (96-114); Sodium* 136 mmol/L (135-149)
[2023-11-14 19:16] LABS: Potassium* 4.5 mmol/L (3.6-5.1)
[2023-11-14 19:18] LABS: Alkaline Phosphatase* 87 U/L (40-150); Anion Gap 8 mEq/L (7-15); Aspartate Amino Transferase* 32 U/L (12-35); Bilirubin Total* 0.8 mg/dL (0.1-1.5); Carbon Dioxide* 30 mmol/L (20-32); Creatinine* 1.3 mg/dL (0.5-1.5); Est. Creatinine Clearance* 58.03; Estimated Glomerular Filt Rate 59 ml/min; Total Protein* 7.4 g/dL (6.0-8.3)
[2023-11-14 19:19] LABS: Alanine Aminotransferase* 39 U/L (4-50); Blood Urea Nitrogen* 22 mg/dL (7-30); Calcium* 9.5 mg/dL (8.4-10.6); Glucose* 97 mg/dL (60-115)
[2023-11-14 19:21] LABS: C Reactive Protein* 3.8 mg/dL (0.5-1.0)
[2023-11-14 20:03] VITALS: BP 169/111; PULSE 113; RESP 16; O2SAT 96
[2023-11-14 20:06] VITALS: BP 150/78
== END 2023-11-14 20:22 | disposition home or self-care (01) ==
PROVIDERS: Emergency Provider Family Medicine
DX: J18.9 Pneumonia, unspecified organism (principal)
CPT/HCPCS: 36415; 71045; 80053; 85025; 86140; 99283; 99284